=== PATIENT | male | born 1945 | race Two or more races ===

== ENCOUNTER → 2017-05-12 11:57 | Outpatient (CLI) | payer OTHER, SELFPAY ==
[2017-05-12 14:46] LABS: Hematocrit 29.5 % (40-54); Hemoglobin 9.8 g/dl (13.0-16.5); Mean Corp Hgb Conc 33.2 g/gl (32-36); Mean Corpuscular Hgb 26.6 pg (27.0-32.0); Mean Corpuscular Volume 79.9 fL (80-94); Mean Platelet Vol. 11.9 fl (6.2-12.0); Platelet Count 187 K/mm3 (150-450); RBC Distribution Width CV 12.9 % (11.6-14.6); RBC Distribution Width SD 36.7 fl (35.1-43.9); Red Blood Count 3.69 M/mm3 (4.6-6.2); White Blood Count 6.4 K/mm3 (4.4-11.0)
[2017-05-12 14:48] LABS: Scan Indicated on CBC? Y/N NO
[2017-05-12 15:14] LABS: Albumin, Serum 3.2 g/dL (3.2-5.0); BUN 22 mg/dL (7-18); BUN/Creat Ratio 6.8 RATIO (10-20); Calcium,Total 8.5 mg/dL (8.5-10.1); Chloride 104 mmol/L (98-107); Creatinine, Serum 3.25 mg/dL (0.70-1.30); EST Glomerular Filtration Rate 20 mL/min (>60); Est Glom Filt Rate - Afr Amer 24 mL/min (>60); Glucose 132 mg/dL (70-110); Phosphorus 3.7 mg/dL (2.5-4.9); Potassium 4.3 mmol/L (3.5-5.1); Sodium Level 141 mmol/L (136-145)
[2017-05-12 15:15] LABS: 24HR. UA Prot. Total Volume 2425 mL; Urine Protein (24 Hour) 157.8 mg/dL (<11.9)
[2017-05-12 15:18] LABS: Creat.Clear Total Volume 2425 mL; Creatinine Serum Creat 3.3 mg/dL (0.8-1.3)
[2017-05-12 15:24] LABS: Vitamin D,25 Hydroxy 19.4 ng/mL (19.95-100.01)
[2017-05-12 15:26] LABS: PTHIN 286.2 pg/mL (18.4-80.1)
[2017-05-13 21:18] LABS: 24 Hour Urine Protein 3826.6 mg/24HR (<150 MG/24HR)
[2017-05-13 21:23] LABS: Creatinine Clearance 26 ml/min (100-200); Creatinine Urine 49.7 mg/dL (NO RANGE EST.); EST Glomerular Filtration Rate 20 mL/min (>60); Est Glom Filt Rate - Afr Amer 24 mL/min (>60)
== END ==
PROVIDERS: Family Provider Family Medicine Geriatric Medicine; PCP Family Medicine Geriatric Medicine; Visit Provider Internal Medicine Nephrology
DX: N18.4 Chronic kidney disease, stage 4 (severe) (principal); D63.8 Anemia in other chronic diseases classified elsewhere; N25.81 Secondary hyperparathyroidism of renal origin; E55.9 Vitamin D deficiency, unspecified
CPT/HCPCS: 36415; 80069; 82306; 82575; 83970; 84156; 85027

== ENCOUNTER → 2017-06-15 11:34 | Outpatient (CLI) | payer OTHER, SELFPAY ==
[2017-06-15 13:16] LABS: Absolute Lymphocyte Count 1.41 X10^3/ul (0.83-4.51); Absolute Neutrophil Count 4.5 X10^3/uL (2.0-7.7); Basophil# 0.03 X10^3/uL; Basophil% 0.4 % (0-1); Eosinophil# 0.49 X10^3/uL; Eosinophils% 7.1 % (0-5); Hematocrit 29.7 % (40-54); Hemoglobin 9.6 g/dl (13.0-16.5); Lymphocyte # 1.41 X10^3/ul (4.0); Lymphocyte % 20.5 % (19-41); Mean Corp Hgb Conc 32.3 g/gl (32-36); Mean Corpuscular Hgb 25.9 pg (27.0-32.0); Mean Corpuscular Volume 80.3 fL (80-94); Mean Platelet Vol. 10.8 fl (6.2-12.0); Monocyte# 0.42 X10^3/uL; Monocyte% 6.1 % (0-10); Neutrophil # 4.53 X10^3/uL (2.7-7.7); Platelet Count 192 K/mm3 (150-450); RBC Distribution Width CV 14.4 % (11.6-14.6); RBC Distribution Width SD 41.9 fl (35.1-43.9); White Blood Count 6.9 K/mm3 (4.4-11.0)
[2017-06-15 13:17] LABS: POSITIVE COUNT NO; POSITIVE DIFFERENTIAL NO; POSITIVE MORPHOLOGY NO
[2017-06-15 13:18] LABS: Neutrophil % 65.9 % (47-70)
[2017-06-15 13:47] LABS: ALB/GLOB Ratio 0.9 RATIO (0.9-2.4); AST(SGOT) 13 U/L (15-37); Alanine Aminotransfer ALT/SGPT 20 U/L (16-61); Albumin, Serum 3.4 g/dL (3.2-5.0); Alkaline Phosphatase 68 U/L (45-117); Anion Gap 6 (5-15); BUN 33 mg/dL (7-18); BUN/Creat Ratio 9.9 RATIO (10-20); Calcium,Total 8.3 mg/dL (8.5-10.1); Chloride 111 mmol/L (98-107); Creatinine, Serum 3.32 mg/dL (0.70-1.30); EST Glomerular Filtration Rate 20 mL/min (>60); Est Glom Filt Rate - Afr Amer 24 mL/min (>60); Globulin 3.9 g/dL (2.2-4.2); Glucose 175 mg/dL (74-106); Potassium 6.7 mmol/L (3.5-5.1); Protein, Total 7.3 g/dL (6.4-8.2); Sodium Level 138 mmol/L (136-145); Thyroid Stim Hormone (TSH) 2.41 uIU/mL (0.358-3.74)
== END ==
PROVIDERS: Family Provider Family Medicine Geriatric Medicine; PCP Family Medicine Geriatric Medicine; Visit Provider Family Medicine Geriatric Medicine
DX: E11.9 Type 2 diabetes mellitus without complications (principal); I10 Essential (primary) hypertension
CPT/HCPCS: 36415; 80053; 84443; 85025

== ENCOUNTER → 2017-06-16 15:27 | Outpatient (CLI) | payer OTHER, SELFPAY ==
[2017-06-16 16:13] LABS: Anion Gap 9 (5-15); BUN 34 mg/dL (7-18); Calcium,Total 8.2 mg/dL (8.5-10.1); Chloride 108 mmol/L (98-107); Creatinine, Serum 3.08 mg/dL (0.70-1.30); EST Glomerular Filtration Rate 21 mL/min (>60); Est Glom Filt Rate - Afr Amer 26 mL/min (>60); Glucose 150 mg/dL (74-106); Potassium 5.4 mmol/L (3.5-5.1); Sodium Level 137 mmol/L (136-145)
== END ==
PROVIDERS: Family Provider Family Medicine Geriatric Medicine; PCP Family Medicine Geriatric Medicine; Visit Provider Family Medicine Geriatric Medicine
DX: E87.6 Hypokalemia (principal)
CPT/HCPCS: 36415; 80048

== ENCOUNTER → 2017-06-18 11:14 | Outpatient (CLI) | payer OTHER, SELFPAY ==
[2017-06-18 13:25] LABS: Anion Gap 9 (5-15); BUN 40 mg/dL (7-18); BUN/Creat Ratio 12.7 RATIO (10-20); Calcium,Total 8.5 mg/dL (8.5-10.1); Chloride 111 mmol/L (98-107); Creatinine, Serum 3.14 mg/dL (0.70-1.30); EST Glomerular Filtration Rate 21 mL/min (>60); Est Glom Filt Rate - Afr Amer 25 mL/min (>60); Glucose 137 mg/dL (74-106); Sodium Level 141 mmol/L (136-145)
== END ==
PROVIDERS: Family Provider Family Medicine Geriatric Medicine; PCP Family Medicine Geriatric Medicine; Visit Provider Family Medicine Geriatric Medicine
DX: E87.6 Hypokalemia (principal)
CPT/HCPCS: 36415; 80048

== ENCOUNTER → 2017-07-13 10:19 | Outpatient (CLI) | payer OTHER, SELFPAY ==
[2017-07-13 15:02] LABS: Hematocrit 29.1 % (40-54); Hemoglobin 9.6 g/dl (13.0-16.5); Mean Corpuscular Hgb 26.4 pg (27.0-32.0); Mean Corpuscular Volume 79.9 fL (80-94); Mean Platelet Vol. 12.1 fl (6.2-12.0); Platelet Count 195 K/mm3 (150-450); RBC Distribution Width CV 14.2 % (11.6-14.6); RBC Distribution Width SD 39.5 fl (35.1-43.9); Red Blood Count 3.64 M/mm3 (4.6-6.2)
[2017-07-13 15:08] LABS: Scan Indicated on CBC? Y/N NO
[2017-07-13 15:09] LABS: Albumin, Serum 3.4 g/dL (3.2-5.0); BUN 33 mg/dL (7-18); BUN/Creat Ratio 10.4 RATIO (10-20); Calcium,Total 8.8 mg/dL (8.5-10.1); Chloride 105 mmol/L (98-107); Creatinine, Serum 3.18 mg/dL (0.70-1.30); EST Glomerular Filtration Rate 21 mL/min (>60); Est Glom Filt Rate - Afr Amer 25 mL/min (>60); Glucose 126 mg/dL (74-106); Phosphorus 4.3 mg/dL (2.5-4.9); Potassium 5.1 mmol/L (3.5-5.1); Sodium Level 139 mmol/L (136-145)
[2017-07-14 08:25] LABS: PTHIN 133.2 pg/mL (18.4-80.1)
[2017-07-14 08:30] LABS: Vitamin D,25 Hydroxy 45.2 ng/mL (29.95-100.01)
== END ==
PROVIDERS: Family Provider Family Medicine Geriatric Medicine; PCP Family Medicine Geriatric Medicine; Visit Provider Internal Medicine Nephrology
DX: N18.4 Chronic kidney disease, stage 4 (severe) (principal); N25.81 Secondary hyperparathyroidism of renal origin; D63.8 Anemia in other chronic diseases classified elsewhere; E55.9 Vitamin D deficiency, unspecified
CPT/HCPCS: 36415; 80069; 82306; 83970; 85027

== ENCOUNTER 2017-07-27 08:02 | Day surgery (SDC) | payer OTHER, SELFPAY ==
[2017-07-27] VITALS (7 sets, daily range): BP systolic 98–147; BP diastolic 48–80; PULSE 64–77; RESP 16–19; TEMP 36.4–36.6; O2SAT 98–100; BMI 32.0
--- NOTE | 2017-07-27 | IMM_PTH ---
PATIENT: POLINA GANDARA LOC: EN U#:[id number] AGE/SX: 72/M ROOM: RE07/27/[address]: Dr. Carlos Manuel Sorto MD : 1945 BED: DIS: 07/27/2017 SPEC #: [id number] RECD: 07/28/17 13:03 STATUS: KATHY SOFIA #: [id number] HOWARD: 07/27/17 00:[address]: Carlos Manuel Sorto DEPT: IMMUNOHISTOCHEMISTRY RECD BY: Milena Simmons ENTERED: 07/28/17 13:04 SP TYPE: IMMUNO OTHR DR: Dr. Sy Sharma MD Tissues: A - Stomach, NOS Procedures: H Pylori (initial) PHYSICIAN & INSTITUTION [place] [id number] SPECIMEN INFORMATION: Tissue Source: A ? Antral biopsy Clinical Info: Anemia Specimen Number: [id number] CPT code: 02027 METHODOLOGY: Deparaffinized sections of prefer/formalin-fixed tissue or PAP/DQ stained slides are incubated with monoclonal/polyclonal antibodies/oligonucleotide probes. Localization is made via biotin free immunoperoxidase method. Appropriate controls are performed and reacted as expected. Results on target cell population are indicated in the following table: RESULTS: ANTIBODY / CLONE RESULT Block A H Pylori (polyclonal) negative These tests were developed and their performance characteristics determined by [facility]. They may not have been cleared or approved by the U.[place]. Food and Drug Administration. The FDA has determined that such clearance or approval is not necessary. INTERPRETATION: A. Antral biopsy: Negative for Helicobacter pylori organisms. AM:taniya 07/29/17
--- NOTE | 2017-07-27 | EGD_PTH ---
PATIENT: POLINA GANDARA LOC: EN U#:[id number] AGE/SX: 72/M ROOM: RE07/27/[address]: Dr. Carlos Manuel Sorto MD : 1945 BED: DIS: 07/27/2017 SPEC #: [id number] RECD: 07/27/17 11:30 STATUS: KATHY SOFIA #: [id number] HOWARD: 07/27/17 00:[address]: Carlos Manuel Sorto DEPT: SURGICAL PATHOLOGY RECD BY: Darek Knight ENTERED: 07/27/17 11:59 SP TYPE: EGD [facility]OPSY [facility] DR: Dr. Sy Sharma MD Tissues: A - Gastric mucous membrane B - Esophageal mucous membrane C - COLON BIOPSY D - Transverse colon E - SPLENIC FLEXURE F - Rectum, NOS Procedures: Surgery Specimen Level IV HEADER OPERATION: EGD and colonoscopy PRE-OP DIAGNOSIS: Anemia TISSUE SUBMITTED: A ? Antral biopsy, B ? Distal esophagus biopsy, C ? Hepatic flexure polyp, D ? Mid transverse polyp, E ? Splenic flexure polyp, F ? Rectal polyp MICROSCOPIC DIAGNOSIS A. Gastric antrum, biopsy: Mild chronic gastritis. B. Distal esophagus, biopsy: Fragments of benign squamous mucosa with focal changes of reflux. C. Colonic polyp at hepatic flexure, biopsy: Fragments of tubular adenoma. D. Mid transverse colon polyp, biopsy: Tubular adenoma. E. Colonic polyp at splenic flexure, biopsy: Fragments of tubular adenoma. F. Rectal polyp, biopsy: Hyperplastic polyp. Fecal debris. AM:taniya 07/28/17 COMMENT A. The results of immunohistochemistry for Helicobacter pylori will be reported separately ([id number]). B. Glandular epithelium is not represented in the biopsy. Clinical correlation is suggested. MICROSCOPIC DESCRIPTION Slides are reviewed. A. Sections show small collections and groups of plasma cells in the mucosa. Active inflammation is not present. These findings are consistent with mild chronic gastritis. GROSS DESCRIPTION A - Received in fixative is one container labeled with the patient's name and designated antral biopsy. The specimen consists of one irregular fragment of light acosta soft tissue that measures 0.4 x 0.4 x 0.1 cm. The specimen is totally submitted in one cassette. B - Received in fixative is one container labeled with the patient's name and designated distal esophagus. The specimen consists of one irregular fragment of light acosta soft tissue that measures 0.5 x 0.3 x 0.1 cm. The specimen is totally submitted in one cassette. C - Received in fixative is one container labeled with the patient's name and designated hepatic flexure polyp. The specimen consists of two irregular fragments of light acosta soft tissue that in aggregate measure 0.7 x 0.3 x 0.2 cm. The specimen is totally submitted in one cassette. D - Received in fixative is one container labeled with the patient's name and designated mid transverse polyp. The specimen consists of one irregular fragment of light acosta soft tissue that measures 0.3 x 0.3 x 0.2 cm. The specimen is totally submitted in one cassette. E - Received in fixative is one container labeled with the patient's name and designated splenic flexure polyp. The specimen consists of multiple irregular fragments of light acosta soft tissue that in aggregate measure 1.5 x 0.5 x 0.1 cm. The specimen is totally submitted in one cassette. F - Received in fixative is one container labeled with the patient's name and designated rectal polyp. The specimen consists of multiple irregular fragments of light acosta soft tissue that in aggregate measure 1 x 0.3 x 0.1 cm. The specimen is totally submitted in one cassette. / SJ:rg 07/27/17 TC:5 CPT: 13565 x6
[2017-07-27 08:41] LABS: Bedside Glucose 122 mg/dL (70-110)
--- NOTE | 2017-07-27 10:39 | PCM.OPRPT ---
Problem List (1) Anemia of chronic renal failure, stage 4 (severe) Status: Chronic (2) Screening for intestinal cancer Status: Acute Report of Operation Date of Procedure: 07/27/17 Pre-Operative Diagnosis: Chronic anemia, screening for intestinal cancer Post-Operative Diagnosis: Small hiatal hernia, minimal distal esophagitis, minimal antral erythema. Elongated tortuous colon, small sessile polyps of the hepatic flexure and mid transverse colon and splenic flexure and rectum. Minimal sigmoid diverticulosis Surgery/Procedure Performed:: Esophagogastroduodenoscopy with cold forceps biopsy. Colonoscopy with hot snare polypectomy Description of Surgical Findings:: Amount and informed consent was obtained. 72-year-old gentleman was taken to the endoscopy suite. He is being evaluated for renal transplantation. His oropharynx anesthetized with Cetacaine. He was placed in left lateral decubitus position. He underwent monitored anesthesia care. Flexible gastroscope was inserted in the esophageal inlet. The proximal mid distal esophagus not remarkable. There is a very minimal amount of irritation within a small hiatal hernia in the distal esophagus at 40 cm e.g. junction. Scope was advanced in the stomach. A very minimal amount of antral erythema noted. Scope was advanced through the pylorus. The first and second portion of the duodenum were inspected this was not remarkable. The scope was gone back to the stomach retroflexed the EG junction and cardia were inspected. The small hiatal hernia noted. Scope was placed back in antegrade viewing position. Greater and lesser curvatures were inspected and the scope was advanced back down to the antrum. Cold forceps antral biopsy obtained. Excess fluid and air was aspirated free. The scope was withdrawn to the distal esophagus with a similar biopsy was obtained. Excess fluid nurse aspirated free the procedure completed he tolerated it well. He was kept in left loud skin decubitus position. Digital rectal exam demonstrated lax anal tone 2+ smooth prostate no mass lesions. Flexible colonoscope was in the rectum advanced with tortuous sigmoid colon with some effort was advanced to the transverse colon and with transabdominal pressure is advanced to the cecum. The cecum ileocecal valve area was achieved. Bowel prep was fair to good there was liquid stool located throughout the colon which required aspiration in in sections could not be completely aspirated because of his viscosity and plugging of the scope. I felt that I had adequate though not superlative view of the colon. The scope was carefully withdrawn from the ascending colon transverse colon descending colon and sigmoid. There were small sessile polyps of the hepatic flexure and mid transverse colon and splenic flexure and rectum. Photographs were obtained. All of these were less than a centimeter. They were all resected using hot snare cautery. They were retrieved. Hemostasis was nicely intact. There is minimal sigmoid diverticulosis. The scope was retroflexed within the rectum some mild hemorrhoidal changes noted no active bleeding. Excess fluid and air was aspirated free the procedure completed with the patient tolerating it well. Impression Very minimal distal esophagitis with small hiatal hernia. Minimal antral erythema. 4 small sessile polyps of the hepatic flexure and mid transverse colon and splenic flexure and rectum. All clinically benign. Diverticulosis. Internal hemorrhoids. The patient will be notified of pathology results as they become available. Because of the number of polyps and lack of absolutely perfect bowel prep I will recommend follow-up colonoscopy at 1 year. The patient has never had a previous colonoscopy. Cc: Dr. Sharma The upper scope exam was started at 1007 and completed at 1011. The colonoscopy was initiated at 1014. The cecum was reached at 1020. The procedure was completed at 1036. Carlos Manuel Sorto M.D., F.A.C.S. Type of Anesthesia:: MAC Anesthesiologist: Mo Arizmendi
== END 2017-07-27 11:25 | disposition home or self-care (01) ==
LOC: EN 08:02 → AC 08:05
PROVIDERS: Family Provider Family Medicine Geriatric Medicine; PCP Family Medicine Geriatric Medicine; Visit Provider Surgery
PROC: 0DJD8ZZ Inspection of Lower Intestinal Tract, Via Natural or Artificial Opening Endoscopic (ICD-10-PCS; CPT 45378; principal; 2017-07-27 09:10)
DX: Z12.10 Encounter for screening for malignant neoplasm of intestinal tract, unspecified (principal); K29.50 Unspecified chronic gastritis without bleeding; K21.0 Gastro-esophageal reflux disease with esophagitis; K44.9 Diaphragmatic hernia without obstruction or gangrene; D12.3 Benign neoplasm of transverse colon; K57.30 Diverticulosis of large intestine without perforation or abscess without bleeding; K62.1 Rectal polyp; K56.2 Volvulus; K64.8 Other hemorrhoids; I12.9 Hypertensive chronic kidney disease with stage 1 through stage 4 chronic kidney disease, or unspecified chronic kidney disease; E11.22 Type 2 diabetes mellitus with diabetic chronic kidney disease; N18.4 Chronic kidney disease, stage 4 (severe); D63.1 Anemia in chronic kidney disease; N17.9 Acute kidney failure, unspecified; Z79.84 Long term (current) use of oral hypoglycemic drugs; Z77.22 Contact with and (suspected) exposure to environmental tobacco smoke (acute) (chronic); E78.00 Pure hypercholesterolemia, unspecified; E78.5 Hyperlipidemia, unspecified; Z79.899 Other long term (current) drug therapy
CPT/HCPCS: 43239; 45385; 82962; 88305; 88342; J7120

== ENCOUNTER → 2017-09-23 12:36 | Outpatient (CLI) | payer OTHER, SELFPAY ==
[2017-09-23 13:43] LABS: Absolute Lymphocyte Count 1.62 X10^3/ul (0.83-4.51); Absolute Neutrophil Count 4.7 X10^3/uL (2.0-7.7); Basophil# 0.02 X10^3/uL; Basophil% 0.3 % (0-1); Eosinophil# 0.48 X10^3/uL; Eosinophils% 6.7 % (0-5); Hematocrit 26.9 % (40-54); Hemoglobin 8.9 g/dl (13.0-16.5); Lymphocyte # 1.62 X10^3/ul (4.0); Lymphocyte % 22.6 % (19-41); Mean Corp Hgb Conc 33.1 g/gl (32-36); Mean Corpuscular Hgb 26.8 pg (27.0-32.0); Mean Platelet Vol. 10.4 fl (6.2-12.0); Monocyte# 0.37 X10^3/uL; Monocyte% 5.2 % (0-10); Neutrophil # 4.67 X10^3/uL (2.7-7.7); Neutrophil % 65.2 % (47-70); Platelet Count 187 K/mm3 (150-450); RBC Distribution Width CV 13.7 % (11.6-14.6); RBC Distribution Width SD 40.8 fl (35.1-43.9); Red Blood Count 3.32 M/mm3 (4.6-6.2); White Blood Count 7.2 K/mm3 (4.4-11.0)
[2017-09-23 13:50] LABS: ALB/GLOB Ratio 0.8 RATIO (0.9-2.4); AST(SGOT) 13 U/L (15-37); Alanine Aminotransfer ALT/SGPT 18 U/L (16-61); Albumin, Serum 3.2 g/dL (3.2-5.0); Alkaline Phosphatase 46 U/L (45-117); Anion Gap 7 (5-15); BUN 45 mg/dL (7-18); BUN/Creat Ratio 12.4 RATIO (10-20); Calcium,Total 8.3 mg/dL (8.5-10.1); Chloride 107 mmol/L (98-107); Creatinine, Serum 3.64 mg/dL (0.70-1.30); EST Glomerular Filtration Rate 18 mL/min (>60); Est Glom Filt Rate - Afr Amer 21 mL/min (>60); Ferritin 161 ng/mL (26-388); Globulin 4.1 g/dL (2.2-4.2); Glucose 154 mg/dL (74-106); Iron 79 ug/dL (65-175); Iron Binding Capacity,Total 215 ug/dL (250-450); PERCENT IRON SATURATION 36.7 % (15.0-55.0); Phosphorus 4.1 mg/dL (2.5-4.9); Potassium 5.3 mmol/L (3.5-5.1); Protein, Total 7.3 g/dL (6.4-8.2); Sodium Level 138 mmol/L (136-145)
[2017-09-23 13:56] LABS: Protein, Urine (Random) 256.6 mg/dL (<11.9); Protein:Creat Ratio 2780 mg/g CRE (0-200)
[2017-09-23 14:01] LABS: POSITIVE COUNT NO; POSITIVE DIFFERENTIAL NO; POSITIVE MORPHOLOGY NO
[2017-09-24 08:23] LABS: PTHIN 97.1 pg/mL (18.4-80.1)
[2017-09-24 17:54] LABS: Erythropoietin 7.8 mIU/mL (2.6-18.5)
== END ==
PROVIDERS: Internal Medicine Hematology & Oncology; Family Provider Family Medicine Geriatric Medicine; PCP Family Medicine Geriatric Medicine; Visit Provider Internal Medicine Nephrology
DX: E11.22 Type 2 diabetes mellitus with diabetic chronic kidney disease (principal); N18.4 Chronic kidney disease, stage 4 (severe); D63.8 Anemia in other chronic diseases classified elsewhere; N25.81 Secondary hyperparathyroidism of renal origin
CPT/HCPCS: 80053; 82570; 82668; 82728; 83540; 83550; 83970; 84100; 84156; 85025

== ENCOUNTER → 2017-10-04 09:56 | Outpatient (CLI) | payer OTHER, SELFPAY ==
--- NOTE | 2017-10-04 10:24 | VDUE_ITS ---
Reason For Study: CKD stage 4 Right Arm Left Arm Right cephalic vein is compressible. Left cephalic vein is compressible. Right Cephalic Vein at the shoulder Left Cephalic Vein at the shoulder measures .319 x .318 cm. measures .283 x .279 cm. Right Cephalic Vein mid bicep measures .244 Left Cephalic Vein at mid bicep x .259 cm. measures .237 x .254 cm. Right Cephalic Vein above antecub Left Cephalic Vein above antecub measures .359 x .369 cm. measures .295 x .312 cm. Right Cephalic Vein below antecub Left Cephalic Vein below antecub measures .254 x .264 cm. measures .299 x .316 cm. Right Cephalic Vein in the forearm Left Cephalic Vein in the forearm measures .285 x .289 cm. measures .241 x .258 cm. Right Cephalic Vein at the wrist Left Cephalic Vein at the wrist measures .289 x .299 cm. measures .245 x .266 cm. Right basilic vein is compressible. Left basilic vein is compressible. Right Basilic Vein at the origin Basilic vein at origin measures .407 x .392 measures .443 x .473 cm. cm. Right Basilic Vein above antecub Basilic vein above antecub measures .439 measures .353 x .353 cm. x .412 cm. Right Basilic Vein below antecub Basilic vein below antecub measures .166 measures .085 x .085 cm. x .146 cm. Basilic V below this level is too small to Basilic V below this level is too small to assess. assess. Brachial artery 94.3 cm/s. Brachial artery 108 cm/s. Brachial artery .538 x .572 cm. Brachial artery .495 x .482 cm. Radial artery 130 cm/s. Radial artery 140 cm/s. Radial artery .280 x .295 cm. Radial artery .220 x .233 cm. < Interpretation Summary Patent and compressible cephalic and basilic veins bilaterally with dimensions as noted. Relatively small left radial artery. Ordering Physician: Mary Mix Performed By: Mariusz Sarmiento RVT ??? Reason For Study: CKD stage 4 < Interpretation Summary Patent and compressible cephalic and basilic veins bilaterally with dimensions as noted. Relatively small left radial artery. Ordering Physician: Mary Mix Performed By: Mariusz Sarmiento RVT
== END ==
PROVIDERS: Family Provider Family Medicine Geriatric Medicine; PCP Family Medicine Geriatric Medicine; Visit Provider Internal Medicine Nephrology
DX: Z01.818 Encounter for other preprocedural examination (principal); N18.4 Chronic kidney disease, stage 4 (severe)
CPT/HCPCS: 93970

== ENCOUNTER 2017-11-18 14:32 | Inpatient (IN) | payer OTHER, SELFPAY ==
[2017-11-18] VITALS (7 sets, daily range): BP systolic 153–186; BP diastolic 72–85; PULSE 65–77; RESP 16–18; TEMP 36.2–36.9; O2SAT 98–100; BMI 32.2; BMI 32.3
--- NOTE | 2017-11-18 15:10 | CT_ITS ---
STUDY: CT BRAIN WITHOUT CONTRAST REASON FOR EXAM: Male, 72 years old. Dizziness. Weakness. Fall. Not sure of direct head trauma. RADIATION DOSAGE (If Supplied By Facility): CTDIvol = ( 44.99 ) mGy, DLP = ( 796.11 ) mGycm TECHNIQUE: Transaxial CT imaging of the brain was performed without administration of intravenous contrast material. Individualized dose optimization techniques were used for this CT. COMPARISON: May 15, 2014. FINDINGS: Normal soft tissue structures. Normal calvarium. Normal size ventricles and extra-axial spaces for the patient's age. Normal white matter tracts of the cerebral hemispheres. Normal basal ganglia and thalami. Normal brainstem. Normal cerebellum. There is no intracranial hemorrhage. There are no findings of an acute ischemic infarction. There is opacification of the right ethmoid air cells and sphenoid sinus. CT/Brain/Head without Contrast IMPRESSION: No acute intracranial or calvarial abnormality. There is no interval change when compared to May 16, 2014. Electronically Signed: Froilan Valdes DO at 16:09 EDT Tel [phone], Service support ,
--- NOTE | 2017-11-18 15:10 | RAD_ITS ---
STUDY: X-RAY CHEST REASON FOR EXAM: Male, 72 years old. Dizziness. Weakness Fall. Diaphoresis. Neck pain. TECHNIQUE: Single AP portable view of the chest. COMPARISON: February 28, 2017 FINDINGS: Telemetry wires overlie the chest. The lungs are clear and expanded. There is stable elevation of the right hemidiaphragm. There is no demonstrated pleural abnormality. Normal size heart. Normal mediastinum and yoel. Normal visualized pulmonary arteries. Normal visualized aortic arch and descending thoracic aorta. There are diffuse degenerative changes of the visualized thoracic spine. Normal visualized ribs, clavicles, and shoulders. There is no demonstrated abnormality of the visualized soft tissue structures of the upper abdomen. RAD/Chest 1 View (Portable) IMPRESSION: No acute cardiopulmonary disease or major interval change. Electronically Signed: Froilan Valdes DO at 16:12 EDT Tel [phone], Service support ,
--- NOTE | 2017-11-18 15:12 | RAD_ITS ---
STUDY: X-RAY - CERVICAL SPINE REASON FOR EXAM: Male, 72 years old. Dizziness. Weakness. Fall. Neck pain. TECHNIQUE: 3 view(s) of the cervical spine were obtained. COMPARISON: None FINDINGS: There are degenerative changes of the anterior atlantoaxial articulation. Normal odontoid process. There is straightening of the normal cervical lordosis. There is multi-level endplate spondylosis. There is multi-level degenerative disc disease with multilevel disc space narrowing. This is most marked at C5-6 and C6-7. There is no evidence of acute fracture or loss of vertebral axial height. There is maintenance of normal alignment. The soft tissue structures are unremarkable. RAD/Cerv Spine 2 or 3 Views IMPRESSION: Straightening of the cervical lordosis with degenerative changes of the cervical spine. Electronically Signed: Froilan Valdes DO at 16:11 EDT Tel [phone], Service support ,
--- NOTE | 2017-11-18 15:31 | ED.VISSUMM ---
- ER Visit Summary Date of Service: 11/18/17 Chief Complaint: [Weakness] History of Present Illness: The patient is a 72 M [with complaint of mainly fatigue today and no energy. Patient recounts an episode last evening where he woke up at 3 AM feeling like he was having a lot of abdominal cramping and needed to have a bowel movement therefore he went and sat on the toilet. While on the toilet he states he really could not go but began feeling lightheaded, sweaty, and generally not feeling well. Patient states that he try to walk back to his bedroom where he fell into the side of the bed as he was trying to get into bed. Patient did not lose consciousness. Patient thinks he may have injured his neck when he fell into the side of the bed. Is not sure if he hit his head. Patient is not on any blood thinners. Today he is not feeling dizzy or lightheaded however when he walks he feels a little bit off balance. Patient denies any numbness or tingling or weakness of the extremities. Patient denies chest pain or shortness of breath. Patient has not had any recent illness. He has not had any vomiting or diarrhea.] Physical Examination: [HEENT-PERRLA, EOMI. Cranial nerves II through XII grossly intact. TMs clear. Mucous membranes moist. No adenopathy. Head is atraumatic. Patient does have some diffuse C-spine tenderness on palpation. Patient rates his pain a 5 or 6 out of 10. Cardiovascular-regular rate and rhythm without murmur or ectopy Lungs-clear to auscultation, chest wall stable without crepitus or subcu emphysema Abdomen-normoactive bowel sounds, soft, nontender, no rebound or rigidity, no peritoneal signs. Neuro mcbc-oeuayn-pzhi and heel garcia testing within normal limits, negative Romberg, negative pronator drift. Back exam-patient has no tenderness over the thoracic or lumbar spine. Patient has negative straight leg raises. Extremities-intact ?4, normal range of motion, normal pulses, atraumatic] Test Results: [EKG obtained on arrival showed a sinus rhythm with a ventricular rate of 66 bpm and a right bundle branch block.] Emergency Department Course and Treatment: [] Treatment Plan: [] Disposition: [] Impression: [] This note was generated with [employer] software. It may contain incorrect words, spelling, and punctuation that were not noted in review of the chart prior to signing ED Disposition - Plan for ED Patient: Chief Complaint: Dizziness Referrals: Sy Sharma Chi, MD [Primary Care Provider] -
[2017-11-18] MEDS: 0.9% Normal Saline 1,000 ML 150 ML IV ×2 (15:33→20:22)
--- NOTE | 2017-11-18 15:34 | ED.DCSUM_ITS ---
- ER Visit Summary Date of Service: 11/18/17 Chief Complaint: [Weakness] History of Present Illness: The patient is a 72 M [with complaint of mainly fatigue today and no energy. Patient recounts an episode last evening where he woke up at 3 AM feeling like he was having a lot of abdominal cramping and needed to have a bowel movement therefore he went and sat on the toilet. While on the toilet he states he really could not go but began feeling lightheaded, sweaty, and generally not feeling well. Patient states that he try to walk back to his bedroom where he fell into the side of the bed as he was trying to get into bed. Patient did not lose consciousness. Patient thinks he may have injured his neck when he fell into the side of the bed. Is not sure if he hit his head. Patient is not on any blood thinners. Today he is not feeling dizzy or lightheaded however when he walks he feels a little bit off balance. Patient denies any numbness or tingling or weakness of the extremities. Patient denies chest pain or shortness of breath. Patient has not had any recent illness. He has not had any vomiting or diarrhea.] Physical Examination: [HEENT-PERRLA, EOMI. Cranial nerves II through XII grossly intact. TMs clear. Mucous membranes moist. No adenopathy. Head is atraumatic. Patient does have some diffuse C-spine tenderness on palpation. Patient rates his pain a 5 or 6 out of 10. Cardiovascular-regular rate and rhythm without murmur or ectopy Lungs-clear to auscultation, chest wall stable without crepitus or subcu emphysema Abdomen-normoactive bowel sounds, soft, nontender, no rebound or rigidity, no peritoneal signs. Neuro lott-puujur-hbdm and heel garcia testing within normal limits, negative Romberg, negative pronator drift. Back exam-patient has no tenderness over the thoracic or lumbar spine. Patient has negative straight leg raises. Extremities-intact ?4, normal range of motion, normal pulses, atraumatic] Test Results: [EKG obtained on arrival showed a sinus rhythm with a ventricular rate of 66 bpm and a right bundle branch block.] Emergency Department Course and Treatment: [] Treatment Plan: [] Disposition: [] Impression: [] This note was generated with [employer] software. It may contain incorrect words, spelling, and punctuation that were not noted in review of the chart prior to signing ED Disposition - Plan for ED Patient: Chief Complaint: Dizziness Referrals: Sy Sharma Chi, MD [Primary Care Provider] -
[2017-11-18 15:43] LABS: Absolute Neutrophil Count 5.5 X10^3/uL (2.0-7.7); Basophil# 0.02 X10^3/uL; Basophil% 0.3 % (0-1); Eosinophil# 0.34 X10^3/uL; Eosinophils% 4.3 % (0-5); Hematocrit 32.3 % (40-54); Hemoglobin 10.3 g/dl (13.0-16.5); Lymphocyte % 18.9 % (19-41); Mean Corp Hgb Conc 31.9 g/gl (32-36); Mean Corpuscular Hgb 26.5 pg (27.0-32.0); Mean Corpuscular Volume 83.2 fL (80-94); Mean Platelet Vol. 10.5 fl (6.2-12.0); Monocyte# 0.53 X10^3/uL; Monocyte% 6.7 % (0-10); Neutrophil # 5.54 X10^3/uL (2.7-7.7); Neutrophil % 69.7 % (47-70); Platelet Count 171 K/mm3 (150-450); RBC Distribution Width SD 42.3 fl (35.1-43.9); Red Blood Count 3.88 M/mm3 (4.6-6.2); White Blood Count 7.9 K/mm3 (4.4-11.0)
[2017-11-18 15:44] LABS: POSITIVE COUNT NO; POSITIVE DIFFERENTIAL NO; POSITIVE MORPHOLOGY NO
[2017-11-18 16:02] LABS: Anion Gap 8 (5-15); BUN 55 mg/dL (7-18); BUN/Creat Ratio 13.1 RATIO (10-20); Calcium,Total 8.2 mg/dL (8.5-10.1); Chloride 115 mmol/L (98-107); EST Glomerular Filtration Rate 15 mL/min (>60); Est Glom Filt Rate - Afr Amer 18 mL/min (>60); Estimated Creatinine Clearance 15.83 ml/min; Glucose 183 mg/dL (74-106); Potassium 5.9 mmol/L (3.5-5.1); Sodium Level 144 mmol/L (136-145)
--- NOTE | 2017-11-18 17:09 | ED.DCSUM_ITS ---
- ER Visit Summary Date of Service: 11/18/17 Chief Complaint: [Addendum to initial dictation] History of Present Illness: The patient is a 72 M [] Physical Examination: [] Test Results: [CBC with differential showed white count 7.9, hemoglobin 10, hematocrit 32, platelets 171. Chemistry showed a sodium 144, potassium 5.9, chloride 115, CO2 21, glucose 183. BUN was 55 and current was 4.20. Troponin was less than 0.015. Chest x-ray showed nothing acute. CT of the brain showed nothing acute. C-spine x-rays obtained show degenerative changes but no fractures.] Emergency Department Course and Treatment: [Patient's BUN and creatinine have both increased in the last 2 months and patient is hyperkalemic today.] Treatment Plan: [Admit for further workup and evaluation of his renal failure and treatment of his hyperkalemia] Disposition: [Admit] Impression: [Renal failure Hyperkalemia Vasovagal episode Fall with cervical strain] This note was generated with [employer] dictation software. It may contain incorrect words, spelling, and punctuation that were not noted in review of the chart prior to signing ED Disposition - Plan for ED Patient: Chief Complaint: Dizziness Referrals: Sy Sharma Chi, MD [Primary Care Provider] -
[2017-11-18] MEDS: Sodium Polystyrene Sulfonate 15 GM/60 ML UDC 30 GM PO (17:18)
--- NOTE | 2017-11-18 18:22 | PCM.HP.STD ---
Problem List (1) DEVIN (acute kidney injury) Status: Acute (2) Hyperkalemia Status: Acute (3) Near syncope Status: Acute History of Present Illness Date of Admission: 11/18/17 Chief Complaint: near syncope The patient is a 72 year old M who was in his normal state of health up until early this morning where patient had cramps. I went to the restroom. I went back to his room and had a near syncopal and where he fell and felt dizzy. Patient went back to the bathroom again did have a bowel movement with cramps but then cramps resolved thereafter. Patient went back again and then another near syncopal episode and did his chin. Patient was brought to the emergency room in and found to have a creatinine of 4.2, with a baseline of 3.64. Potassium is also elevated at 5.9. Patient did receive IV fluids as well as Kayexalate. Orthostatic vital signs in the emergency room were negative. 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 DM2 (diabetes mellitus, type 2) (Chronic) E11.9 Hypertensive urgency (Acute) I16.0 ARF (acute renal failure) (Acute) HTN (hypertension) (Chronic) I10 Pre-syncope (Acute) Anemia D64.9 Hyperlipidemia E78.5 Allergies No Known Allergies Allergy (Verified 11/18/17 14:36) Home Medications: Ambulatory Orders Medication Instructions Recorded Amlodipine [Norvasc] 10 mg PO DAILY 06/23/17 Atorvastatin Calcium [Lipitor] 40 mg PO QHS 06/23/17 Calcitriol 5 mcg PO DAILY 06/23/17 Dulaglutide [Trulicity] 1.5 mg SQ REYNA 06/23/17 Ferrous Sulfate [Iron] 65 mg PO DAILY 06/23/17 Linagliptin [Tradjenta] 5 mg PO DAILY 06/23/17 Losartan Potassium 100 mg PO DAILY 06/23/17 Carvedilol [Coreg (Beta Samantha)] 12.5 mg PO BID 07/21/17 Surgical History: Surgical History (Last Reviewed 11/18/17 @ 18:24 by Santino De La Torre DO) S/P colonoscopy Z98.890 [place] teeth removed K08.409 Surgical History: no surgical history Lives: Spouse/ Significant Other Smoking Status: Former smoker Tobacco Use: Non-smoker Alcohol: None Drugs: None - *Family History Maternal Family History: Family History (Last Reviewed 11/18/17 @ 18:24 by Santino De La Torre DO) Father Pneumonia Mother CVA (cerebral vascular accident) History Items: Diabetes, Hypertension, Renal Disease, Stroke Paternal Family History: Family History (Last Reviewed 11/18/17 @ 18:24 by Santino De La Torre DO) Father Pneumonia Mother CVA (cerebral vascular accident) History Items: Heart Disease Review of Systems Constitutional: Reports: Weakness. Denies: Chills, Fever, Weight Change Eyes: Denies: Blurred vision, Double vision HEENT: Denies: Head Aches, Sinus Congestion, Sinus Drainage Cardiovascular: Denies: Chest Pain, Palpitations Respiratory: Denies: Cough, Shortness of breath at rest, Sputum production Gastrointestinal: Reports: Abdominal Pain, Nausea. Denies: Diarrhea, Vomiting Genitourinary: Reports: - - Decreased urinary output. Denies: Dysuria Musculoskeletal: Denies: Joint Pain, Joint Tenderness Skin: Denies: Rash, Wounds Neurological: Reports: Balance problems. Denies: Blurred vision, Double vision, Change in Speech, Confusion, Focal weakness, Incoordination Psychiatric: Denies: Anxiety, Depression Endocrine: Denies: Change in Body Habitus, Heat/ Cold Intolerance Hematologic/ Lymphatic: Denies: Easy Bruising, Easy Bleeding, Hx of blood clot Comment: All review of systems are negative except as mentioned in the history of present illness and the other review of systems. VTE Information - Inpt Only VTE Present on Admission: No VTE Mechan Device Prophylaxis: None VTE Pharm Prophylaxis ordered?: Yes Patient Problems: Active and Suspected Problems (Last Reviewed 11/03/17 @ 13:36 by Dia Stuart) DEVIN (acute kidney injury) (Acute) Hyperkalemia (Acute) Near syncope (Acute) - Physical Exam General: Alert, Cooperative, No apparent distress HEENT: Atraumatic, PERRLA, EOMI, Normocephalic Oral: Moist Mucosa, No Gingival or Mucosal Lesions/ Ulcerations Neck: No Nodes, Thyroid Normal Size and Texture Lungs: Clear to auscultation, Normal air movement, No rhonchi, No wheeze Cardiovascular: Regular rate, Regular Rhythm, Normal S1, Normal S2, No murmurs Abdomen: Bowel Sounds Present, Soft, Non Tender, Non-Distended, No Hepato-splenomegaly Extremities: No edema, No Calf Tenderness Skin: No rashes, No breakdown Musculoskeletal: No Tenderness to Palpation of Joints or Extremities, No Muscle Wasting Neurological: Cranial nerves II-XII grossly intact, Neuro grossly intact, Motor Exam 5/5 strength throughout, Muscle tone normal Psych/Mental Status: Normal Affect, Appropriate Vital Signs Temp Pulse Resp BP Pulse Ox 36.2 C L 77 17 186/72 H 99 11/18/17 14:33 11/18/17 17:20 11/18/17 17:20 11/18/17 17:20 11/18/17 17:20 Oxygen Delivery Method Room Air Weight: 96.162 kg Body Mass Index (BMI) 32.2 Laboratory Tests Past 24 Hrs 11/18/17 11/18/17 15:35 15:35 WBC 7.9 RBC 3.88 L Hgb 10.3 L Hct 32.3 L MCV 83.2 MCH 26.5 L MCHC 31.9 L RDW 14.0 RDW Differential 42.3 Plt Count 171 MPV 10.5 Immature Gran % (Auto) 0.100 Neut % (Auto) 69.7 Lymph % (Auto) 18.9 L [place] % (Auto) 6.7 Eos % (Auto) 4.3 Baso % (Auto) 0.3 Absolute Neuts (auto) 5.5 Absolute Lymphs (auto) 1.50 Total Counted Not Reportable Sodium 144 Potassium 5.9 H Chloride 115 H Carbon Dioxide 21.0 Anion Gap 8 BUN 55 H Creatinine 4.20 H Estim Creat Clear Calc 15.83 Est GFR (MDRD) Af Amer 18 L Est GFR (MDRD) Non-Af 15 L BUN/Creatinine Ratio 13.1 Glucose 183 H Calcium 8.2 L Troponin I < 0.015 EKG showed normal sinus rhythm right bundle branch block. No acute changes. Clinical Impression(s) from Imaging Studies Brain CT 11/18/17 15:10 IMPRESSION: No acute intracranial or calvarial abnormality. There is no interval change when compared to May 16, 2014. Electronically Signed: Froilan SeligmanDO shana at 16:09 EDT Tel [phone], Service support , Chest X-Ray 11/18/17 15:10 IMPRESSION: No acute cardiopulmonary disease or major interval change. Electronically Signed: Froilan Valdes DO at 16:12 EDT Tel [phone], Service support , Cervical Spine X-Ray 11/18/17 15:12 IMPRESSION: Straightening of the cervical lordosis with degenerative changes of the cervical spine. Electronically Signed: Froilan Valdes DO at 16:11 EDT Tel [phone], Service support , Assessment/Plan All Active Problems (Last Reviewed 11/03/17 @ 13:36 by Dia Stuart) DEVIN (acute kidney injury) (Acute) Hyperkalemia (Acute) Near syncope (Acute) Screening for intestinal cancer (Acute) Hypertensive urgency (Acute) ARF (acute renal failure) (Acute) Pre-syncope (Acute) 1. Acute kidney injury I suspect that this is prerenal IV fluids Hold losartan Given the patient has chronic kidney disease stage IV I am going to consult his bilingual sales representative, Dr. Mix 2. Hyperkalemia Further with the renal failure but also the ARB Patient received Kayexalate in the emergency room No acute EKG changes at this time Recheck lab work in the morning Hold losartan 3. Near syncope Orthostatics are negative I suspect that this is related with patient's dehydration but also some the abdominal cramping Patient abdominal cramping is resolved and I will not pursue any additional workup pertaining to that 4. Chronic kidney disease stage IV The acute worsening I feels only transient due to dehydration Nephrology on consultation No need for renal replacement therapy at this time 5. DVT prophylaxis with subcu heparin Code Visit Inpatient E&M: 43873 Init Hosp L3
--- NOTE | 2017-11-18 18:26 | HP.PCM_ITS ---
Problem List (1) DEVIN (acute kidney injury) Status: Acute (2) Hyperkalemia Status: Acute (3) Near syncope Status: Acute History of Present Illness Date of Admission: 11/18/17 Chief Complaint: near syncope The patient is a 72 year old M who was in his normal state of health up until early this morning where patient had cramps. I went to the restroom. I went back to his room and had a near syncopal and where he fell and felt dizzy. Patient went back to the bathroom again did have a bowel movement with cramps but then cramps resolved thereafter. Patient went back again and then another near syncopal episode and did his chin. Patient was brought to the emergency room in and found to have a creatinine of 4.2, with a baseline of 3.64. Potassium is also elevated at 5.9. Patient did receive IV fluids as well as Kayexalate. Orthostatic vital signs in the emergency room were negative. 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 DM2 (diabetes mellitus, type 2) (Chronic) E11.9 Hypertensive urgency (Acute) I16.0 ARF (acute renal failure) (Acute) HTN (hypertension) (Chronic) I10 Pre-syncope (Acute) Anemia D64.9 Hyperlipidemia E78.5 Allergies No Known Allergies Allergy (Verified 11/18/17 14:36) Home Medications: Ambulatory Orders Medication Instructions Recorded Amlodipine [Norvasc] 10 mg PO DAILY 06/23/17 Atorvastatin Calcium [Lipitor] 40 mg PO QHS 06/23/17 Calcitriol 5 mcg PO DAILY 06/23/17 Dulaglutide [Trulicity] 1.5 mg SQ REYNA 06/23/17 Ferrous Sulfate [Iron] 65 mg PO DAILY 06/23/17 Linagliptin [Tradjenta] 5 mg PO DAILY 06/23/17 Losartan Potassium 100 mg PO DAILY 06/23/17 Carvedilol [Coreg (Beta Samantha)] 12.5 mg PO BID 07/21/17 Surgical History: Surgical History (Last Reviewed 11/18/17 @ 18:24 by Santino De La Torre DO) S/P colonoscopy Z98.890 [place] teeth removed K08.409 Surgical History: no surgical history Lives: Spouse/ Significant Other Smoking Status: Former smoker Tobacco Use: Non-smoker Alcohol: None Drugs: None - *Family History Maternal Family History: Family History (Last Reviewed 11/18/17 @ 18:24 by Santino De La Torre DO) Father Pneumonia Mother CVA (cerebral vascular accident) History Items: Diabetes, Hypertension, Renal Disease, Stroke Paternal Family History: Family History (Last Reviewed 11/18/17 @ 18:24 by Santino De La Torre DO) Father Pneumonia Mother CVA (cerebral vascular accident) History Items: Heart Disease Review of Systems Constitutional: Reports: Weakness. Denies: Chills, Fever, Weight Change Eyes: Denies: Blurred vision, Double vision HEENT: Denies: Head Aches, Sinus Congestion, Sinus Drainage Cardiovascular: Denies: Chest Pain, Palpitations Respiratory: Denies: Cough, Shortness of breath at rest, Sputum production Gastrointestinal: Reports: Abdominal Pain, Nausea. Denies: Diarrhea, Vomiting Genitourinary: Reports: - - Decreased urinary output. Denies: Dysuria Musculoskeletal: Denies: Joint Pain, Joint Tenderness Skin: Denies: Rash, Wounds Neurological: Reports: Balance problems. Denies: Blurred vision, Double vision , Change in Speech, Confusion, Focal weakness, Incoordination Psychiatric: Denies: Anxiety, Depression Endocrine: Denies: Change in Body Habitus, Heat/ Cold Intolerance Hematologic/ Lymphatic: Denies: Easy Bruising, Easy Bleeding, Hx of blood clot Comment: All review of systems are negative except as mentioned in the history of present illness and the other review of systems. VTE Information - Inpt Only VTE Present on Admission: No VTE Mechan Device Prophylaxis: None VTE Pharm Prophylaxis ordered?: Yes Patient Problems: Active and Suspected Problems (Last Reviewed 11/03/17 @ 13:36 by Dia Stuart) DEVIN (acute kidney injury) (Acute) Hyperkalemia (Acute) Near syncope (Acute) - Physical Exam General: Alert, Cooperative, No apparent distress HEENT: Atraumatic, PERRLA, EOMI, Normocephalic Oral: Moist Mucosa, No Gingival or Mucosal Lesions/ Ulcerations Neck: No Nodes, Thyroid Normal Size and Texture Lungs: Clear to auscultation, Normal air movement, No rhonchi, No wheeze Cardiovascular: Regular rate, Regular Rhythm, Normal S1, Normal S2, No murmurs Abdomen: Bowel Sounds Present, Soft, Non Tender, Non-Distended, No Hepato- splenomegaly Extremities: No edema, No Calf Tenderness Skin: No rashes, No breakdown Musculoskeletal: No Tenderness to Palpation of Joints or Extremities, No Muscle Wasting Neurological: Cranial nerves II-XII grossly intact, Neuro grossly intact, Motor Exam 5/5 strength throughout, Muscle tone normal Psych/Mental Status: Normal Affect, Appropriate Vital Signs Temp Pulse Resp BP Pulse Ox 36.2 C L 77 17 186/72 H 99 11/18/17 14:33 11/18/17 17:20 11/18/17 17:20 11/18/17 17:20 11/18/17 17:20 Oxygen Delivery Method Room Air Weight: 96.162 kg Body Mass Index (BMI) 32.2 Laboratory Tests Past 24 Hrs 11/18/17 11/18/17 15:35 15:35 WBC 7.9 RBC 3.88 L Hgb 10.3 L Hct 32.3 L MCV 83.2 MCH 26.5 L MCHC 31.9 L RDW 14.0 RDW Differential 42.3 Plt Count 171 MPV 10.5 Immature Gran % (Auto) 0.100 Neut % (Auto) 69.7 Lymph % (Auto) 18.9 L [place] % (Auto) 6.7 Eos % (Auto) 4.3 Baso % (Auto) 0.3 Absolute Neuts (auto) 5.5 Absolute Lymphs (auto) 1.50 Total Counted Not Reportable Sodium 144 Potassium 5.9 H Chloride 115 H Carbon Dioxide 21.0 Anion Gap 8 BUN 55 H Creatinine 4.20 H Estim Creat Clear Calc 15.83 Est GFR (MDRD) Af Amer 18 L Est GFR (MDRD) Non-Af 15 L BUN/Creatinine Ratio 13.1 Glucose 183 H Calcium 8.2 L Troponin I < 0.015 EKG showed normal sinus rhythm right bundle branch block. No acute changes. Clinical Impression(s) from Imaging Studies Brain CT 11/18/17 15:10 IMPRESSION: No acute intracranial or calvarial abnormality. There is no interval change when compared to May 16, 2014. Electronically Signed: Froilan ValdesDO at 16:09 EDT Tel [phone], Service support , Chest X-Ray 11/18/17 15:10 IMPRESSION: No acute cardiopulmonary disease or major interval change. Electronically Signed: Froilan [place]DO shana at 16:12 EDT Tel [phone], Service support , Cervical Spine X-Ray 11/18/17 15:12 IMPRESSION: Straightening of the cervical lordosis with degenerative changes of the cervical spine. Electronically Signed: Froilan [place]DO shana at 16:11 EDT Tel [phone], Service support , Assessment/Plan All Active Problems (Last Reviewed 11/03/17 @ 13:36 by Dia Stuart) DEVIN (acute kidney injury) (Acute) Hyperkalemia (Acute) Near syncope (Acute) Screening for intestinal cancer (Acute) Hypertensive urgency (Acute) ARF (acute renal failure) (Acute) Pre-syncope (Acute) 1. Acute kidney injury * I suspect that this is prerenal * IV fluids * Hold losartan * Given the patient has chronic kidney disease stage IV I am going to consult his white metal caster, Dr. Mix 2. Hyperkalemia * Further with the renal failure but also the ARB * Patient received Kayexalate in the emergency room * No acute EKG changes at this time * Recheck lab work in the morning * Hold losartan 3. Near syncope * Orthostatics are negative * I suspect that this is related with patient's dehydration but also some the abdominal cramping * Patient abdominal cramping is resolved and I will not pursue any additional workup pertaining to that 4. Chronic kidney disease stage IV * The acute worsening I feels only transient due to dehydration * Nephrology on consultation * No need for renal replacement therapy at this time 5. DVT prophylaxis with subcu heparin Code Visit Inpatient E&M: 73649 Init Hosp L3
[2017-11-18] MEDS: Heparin Injection (Vial) 5,000 UNIT/ML VIAL 5000 UNIT SC (21:45)
[2017-11-18] MEDS: Atorvastatin Calcium 40 MG Tablet PO (21:45)
[2017-11-18] MEDS: Carvedilol 12.5 MG Tablet PO (21:45)
[2017-11-19] MEDS: 0.9% Normal Saline 1,000 ML 150 ML IV ×2 (02:39→09:23)
[2017-11-19 02:59] VITALS: PULSE 70
[2017-11-19 05:15] VITALS: BP 147/73; PULSE 78; RESP 16; TEMP 36.8; O2SAT 99
[2017-11-19 05:43] LABS: International Normalized Ratio 1.2; Prothrombin Time (Protime)PT. 14.9 SECONDS (11.7-14.9)
[2017-11-19 06:26] LABS: Albumin, Serum 2.8 g/dL (3.2-5.0); BUN 46 mg/dL (7-18); BUN/Creat Ratio 12.8 RATIO (10-20); Calcium,Total 7.6 mg/dL (8.5-10.1); Chloride 117 mmol/L (98-107); Creatinine, Serum 3.59 mg/dL (0.70-1.30); EST Glomerular Filtration Rate 18 mL/min (>60); Est Glom Filt Rate - Afr Amer 22 mL/min (>60); Estimated Creatinine Clearance 18.52 ml/min; Glucose 108 mg/dL (74-106); Phosphorus 4.4 mg/dL (2.5-4.9); Potassium 4.7 mmol/L (3.5-5.1); Sodium Level 146 mmol/L (136-145)
[2017-11-19 07:06] LABS: Bedside Glucose 113 mg/dL (70-110)
[2017-11-19 07:17] VITALS: PULSE 67
[2017-11-19 09:15] VITALS: BP 163/83; PULSE 69; RESP 16; TEMP 37.1; O2SAT 100
[2017-11-19] MEDS: Heparin Injection (Vial) 5,000 UNIT/ML VIAL 5000 UNIT SC (09:23)
[2017-11-19] MEDS: LINAGLIPTIN 5 MG TABLET PO (09:23)
[2017-11-19] MEDS: amLODIPine 10 MG Tablet PO (09:23)
[2017-11-19] MEDS: Ferrous Sulfate 325 MG Tablet PO (09:23)
[2017-11-19] MEDS: Carvedilol 25 MG Tablet PO (09:24)
--- NOTE | 2017-11-19 10:45 | CASEMGMT ---
SEE RN CM ASSESS LINK: D/C PLAN: Home Intro role to RN CM. Pt resting in bed, awake/alert/oriented. , Esperanza, @ bedside. Pt is independent @ home and no DME needs identified. Pt and denies needs at this time. CM to follow for discharge planning needs that may arise. Gabriel BSN NORMA CM
[2017-11-19 11:17] VITALS: PULSE 61
--- NOTE | 2017-11-19 12:28 | DCINST_ITS ---
- Discharge Diagnoses Current Active Problems: Current Active and Chronic Problems (Last Reviewed 11/18/17 @ 18:24 by Santino De La Torre DO) DEVIN (acute kidney injury) (Acute) Hyperkalemia (Acute) Near syncope (Acute) You will use the following diet at home:: Calorie/Carbohydrate Controlled ( specify 1200, 1400, etc) - 1800 alvaro / day, Cardiac - 2 g sodium daily, Renal ( restricted protein/sodium) Your food should be the consistency of: Regular Your liquids should be the consistency of: Regular/Thin Discharge Activity: Return to Normal Activity Allergies/Adverse Reactions: Allergies No Known Allergies Allergy (Verified 11/18/17 14:36) Medications to take at Discharge Amlodipine [Norvasc] 10 mg PO DAILY 06/23/17 Atorvastatin Calcium [Lipitor] 40 mg PO QHS 06/23/17 Calcitriol 5 mcg PO DAILY 06/23/17 Dulaglutide [Trulicity] 1.5 mg SQ REYNA 06/23/17 Ferrous Sulfate [Iron] 65 mg PO DAILY 06/23/17 Linagliptin [Tradjenta] 5 mg PO DAILY 06/23/17 Losartan Potassium 100 mg PO DAILY 06/23/17 Carvedilol [Coreg (Beta Samantha)] 12.5 mg PO BID 07/21/17 Primary Care Physician: Sy Sharma Chi, MD [Primary Care Provider] - Please follow up with your Primary Care Physician in: 1 week Test Results: Test results from this visit will be discussed in further detail at your follow- up appointment, if applicable. Please Follow Up With: Mary Mix DO Proposed Discharge Date: 11/19/17
--- NOTE | 2017-11-19 14:14 | PCM.DC.SUM ---
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 There is no interval change when compared to May 16, 2014. RAD/Chest 1 View (Portable) IMPRESSION: No acute cardiopulmonary disease or major interval change. RAD/Cerv Spine 2 or 3 Views IMPRESSION: Straightening of the cervical lordosis with degenerative changes of the cervical spine. Operations: None Procedures: None Summary of Care Provided: Physical exam on day of discharge: General: Resting comfortably NAD Psych: A/Ox3 normal affect HEENT: PEARRLA AT NC Neck: Supple NT CV: RRR no m/t/r/g/h Resp: CTA Abd: [id number] Soft NT no guarding or rigidity Ext: DP2+= no edema Skin: W/D normal turgor Lymph/Heme: No active bleeding or adenopathy Neuro: CN2-12 intact Hospital course: The patient is a 72 year old M with history of CKD stage IV, type 2 diabetes, hypertension, obstructive sleep apnea, who presented to the emergency room after experiencing a near syncopal episode. He had some abdominal cramps and went to the restroom and became dizzy. He had a second episode later that day. He came to the emergency room was found to have worsening of his underlying kidney disease with a creatinine of 4.2, baseline around 3.64, he also had elevated potassium of 5.9, in the ER his orthostatic vitals are negative. He had a x-ray of his C-spine which was negative, he also had a CT of the brain which was negative. Chest x-ray was unremarkable. Patient reported he had been outside working in the heat and not drinking very much water and felt he might be dehydrated. He was given IV fluids and admitted to the PCU on telemetry. He had no events on telemetry. Repeat lab work in the morning demonstrated improvement in his underlying CKD. His beck tender was called, Dr. Mix, and felt that he could be seen in the office that his numbers were improved significantly. With resolution of his AK I he was discharged home in stable condition. He will need to follow-up with his beck tender as directed, as well as with his PCP in 1-2 weeks. This patient was seen by Heladio Capps PA-C under the supervision of Doctor Leonard. [] Discharge Diet: Low fat/ Low Cholesterol, 1800 Calorie Control Diet, 2000 mg Sodium Diet, Renal Diet Discharge Activity: Return to Normal Activity Home Medications: Medications to take at Discharge Amlodipine [Norvasc] 10 mg PO DAILY 06/23/17 Atorvastatin Calcium [Lipitor] 40 mg PO QHS 06/23/17 Calcitriol 5 mcg PO DAILY 06/23/17 Dulaglutide [Trulicity] 1.5 mg SQ REYNA 06/23/17 Ferrous Sulfate [Iron] 65 mg PO DAILY 06/23/17 Linagliptin [Tradjenta] 5 mg PO DAILY 06/23/17 Losartan Potassium 100 mg PO DAILY 06/23/17 Carvedilol [Coreg (Beta Samantha)] 12.5 mg PO BID 07/21/17 Primary Care Physician: Sy Sharma Chi, MD [Primary Care Provider] - Please follow up with your Primary Care Physician in: 1 week Please Follow Up With: Mary Mix DO When: as directed Disposition: Home Minutes spent on discharge:: 35 Patient Condition:: Stable Medical Necessity - Tobacco Use Smoking Status: Former smoker Tobacco Use: Non-smoker Meaningful Use Info Meaningful Use Diagnoses (Choose all that apply): None applicable <Sary Leonard E - Last Filed: 11/19/17 14:57> Discharge Date and Diagnosis - Primary Discharge Diagnosis #1 acute kidney injury on top of stage IV chronic kidney disease. #2 hyperkalemia. 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 Patient was admitted because of near syncope. He was found to have acute kidney injury on top of stage IV chronic kidney disease. Symptoms seem to be due to vasovagal episode. He was found to have serum creatinine of 4.2 which is up from his baseline creatinine which was around 3 mg/dL. His potassium was 5.9. There was no EKG changes related to hyperkalemia. Patient was treated with IV fluids and received 1 dose of Kayexalate. Today, his kidney function improved as well as his potassium. He had a CT scan brain that showed no evidence of acute infarction or hemorrhage. He had a cervical spine x-ray that showed no fractures or dislocations. After discussion with nephrology, patient discharged home in a stable medical condition. He was discharged on the same medication that he was taking before admission without any changes, plan to follow-up with nephrology in 1 week, recommended from PCP in 1 week as well. - Physical Exam General: Alert, Oriented x3, Cooperative, No apparent distress. HEENT: Atraumatic, PERRLA, EOMI. Neck: Supple, No JVD, Negative Carotid Bruits, Trachea Midline, Thyroid Normal. Lungs: Clear to auscultation, Normal air movement, No rhonchi, No wheeze, No rales. Cardiovascular: Regular rate, Regular Rhythm, Normal S1, Normal S2, PMI Normal. Abdomen: Bowel Sounds Present, Soft, Non Tender, Non-Distended, No Hepato-splenomegaly. Extremities: No clubbing, No cyanosis, No edema Skin: No rashes, No breakdown Neurological: Neuro grossly intact This note was generated with [employer] software. It may contain incorrect words, spelling, and punctuation that were not noted in checking the note before signing. Minutes spent on discharge:: 26 Patient Condition:: Stable Meaningful Use Info Meaningful Use Diagnoses (Choose all that apply): None applicable Code Visit Inpatient E&M: 12692 Disch Hosp
--- NOTE | 2017-11-19 14:18 | DS.PCM_ITS ---
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 There is no interval change when compared to May 16, 2014. RAD/Chest 1 View (Portable) IMPRESSION: No acute cardiopulmonary disease or major interval change. RAD/Cerv Spine 2 or 3 Views IMPRESSION: Straightening of the cervical lordosis with degenerative changes of the cervical spine. Operations: None Procedures: None Summary of Care Provided: Physical exam on day of discharge: General: Resting comfortably NAD Psych: A/Ox3 normal affect HEENT: PEARRLA AT NC Neck: Supple NT CV: RRR no m/t/r/g/h Resp: CTA Abd: [id number] Soft NT no guarding or rigidity Ext: DP2+= no edema Skin: W/D normal turgor Lymph/Heme: No active bleeding or adenopathy Neuro: CN2-12 intact Hospital course: The patient is a 72 year old M with history of CKD stage IV, type 2 diabetes, hypertension, obstructive sleep apnea, who presented to the emergency room after experiencing a near syncopal episode. He had some abdominal cramps and went to the restroom and became dizzy. He had a second episode later that day. He came to the emergency room was found to have worsening of his underlying kidney disease with a creatinine of 4.2, baseline around 3.64, he also had elevated potassium of 5.9, in the ER his orthostatic vitals are negative. He had a x-ray of his C-spine which was negative, he also had a CT of the brain which was negative. Chest x-ray was unremarkable. Patient reported he had been outside working in the heat and not drinking very much water and felt he might be dehydrated. He was given IV fluids and admitted to the PCU on telemetry. He had no events on telemetry. Repeat lab work in the morning demonstrated improvement in his underlying CKD. His data visualization developer was called, Dr. Mix, and felt that he could be seen in the office that his numbers were improved significantly. With resolution of his AK I he was discharged home in stable condition. He will need to follow-up with his data visualization developer as directed, as well as with his PCP in 1-2 weeks. This patient was seen by Helaido Capps PA-C under the supervision of Doctor Leonard. [] Discharge Diet: Low fat/ Low Cholesterol, 1800 Calorie Control Diet, 2000 mg Sodium Diet, Renal Diet Discharge Activity: Return to Normal Activity Home Medications: Medications to take at Discharge Amlodipine [Norvasc] 10 mg PO DAILY 06/23/17 Atorvastatin Calcium [Lipitor] 40 mg PO QHS 06/23/17 Calcitriol 5 mcg PO DAILY 06/23/17 Dulaglutide [Trulicity] 1.5 mg SQ REYNA 06/23/17 Ferrous Sulfate [Iron] 65 mg PO DAILY 06/23/17 Linagliptin [Tradjenta] 5 mg PO DAILY 06/23/17 Losartan Potassium 100 mg PO DAILY 06/23/17 Carvedilol [Coreg (Beta Samantha)] 12.5 mg PO BID 07/21/17 Primary Care Physician: Sy Sharma Chi, MD [Primary Care Provider] - Please follow up with your Primary Care Physician in: 1 week Please Follow Up With: Mary Mix DO When: as directed Disposition: Home Minutes spent on discharge:: 35 Patient Condition:: Stable Medical Necessity - Tobacco Use Smoking Status: Former smoker Tobacco Use: Non-smoker Meaningful Use Info Meaningful Use Diagnoses (Choose all that apply): None applicable <Sary Leonard E - Last Filed: 11/19/17 14:57> Discharge Date and Diagnosis - Primary Discharge Diagnosis #1 acute kidney injury on top of stage IV chronic kidney disease. #2 hyperkalemia. 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 Patient was admitted because of near syncope. He was found to have acute kidney injury on top of stage IV chronic kidney disease. Symptoms seem to be due to vasovagal episode. He was found to have serum creatinine of 4.2 which is up from his baseline creatinine which was around 3 mg/dL. His potassium was 5.9. There was no EKG changes related to hyperkalemia. Patient was treated with IV fluids and received 1 dose of Kayexalate. Today, his kidney function improved as well as his potassium. He had a CT scan brain that showed no evidence of acute infarction or hemorrhage. He had a cervical spine x-ray that showed no fractures or dislocations. After discussion with nephrology, patient discharged home in a stable medical condition. He was discharged on the same medication that he was taking before admission without any changes, plan to follow-up with nephrology in 1 week, recommended from PCP in 1 week as well. - Physical Exam General: Alert, Oriented x3, Cooperative, No apparent distress. HEENT: Atraumatic, PERRLA, EOMI. Neck: Supple, No JVD, Negative Carotid Bruits, Trachea Midline, Thyroid Normal. Lungs: Clear to auscultation, Normal air movement, No rhonchi, No wheeze, No rales. Cardiovascular: Regular rate, Regular Rhythm, Normal S1, Normal S2, PMI Normal. Abdomen: Bowel Sounds Present, Soft, Non Tender, Non-Distended, No Hepato- splenomegaly. Extremities: No clubbing, No cyanosis, No edema Skin: No rashes, No breakdown Neurological: Neuro grossly intact This note was generated with [employer] software. It may contain incorrect words, spelling, and punctuation that were not noted in checking the note before signing. Minutes spent on discharge:: 26 Patient Condition:: Stable Meaningful Use Info Meaningful Use Diagnoses (Choose all that apply): None applicable Code Visit Inpatient E&M: 15866 Disch Hosp
--- NOTE | 2017-11-22 13:24 | CASEMGMT ---
RN CM NOTE: attempted call to home, no answer. 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 Debbie GUDINON RN ACM
== END 2017-11-19 12:40 | disposition home or self-care (01) | DRG 684 ==
LOC: ED 15:51 → PCU 18:54
PROVIDERS: Internal Medicine Nephrology; Emergency Provider Emergency Medicine; Family Provider Family Medicine Geriatric Medicine; PCP Family Medicine Geriatric Medicine; Visit Provider Hospitalist
DX: N17.9 Acute kidney failure, unspecified (principal); E87.5 Hyperkalemia; R55 Syncope and collapse; N18.4 Chronic kidney disease, stage 4 (severe); E86.0 Dehydration; G47.33 Obstructive sleep apnea (adult) (pediatric); E11.22 Type 2 diabetes mellitus with diabetic chronic kidney disease; I12.9 Hypertensive chronic kidney disease with stage 1 through stage 4 chronic kidney disease, or unspecified chronic kidney disease; E66.9 Obesity, unspecified; Z68.32 Body mass index [BMI] 32.0-32.9, adult; D63.1 Anemia in chronic kidney disease; S16.1XXA Strain of muscle, fascia and tendon at neck level, initial encounter; W19.XXXA Unspecified fall, initial encounter; Z79.899 Other long term (current) drug therapy
CPT/HCPCS: 36415; 70450; 71045; 72040; 80048; 80069; 82962; 84484; 85025; 85610; 93005; 99285; J7030; A4216

== ENCOUNTER → 2017-11-30 14:29 | Outpatient (CLI) | payer OTHER, SELFPAY ==
[2017-11-30 15:32] LABS: Hematocrit 32.3 % (40-54); Hemoglobin 10.5 g/dl (13.0-16.5); Mean Corp Hgb Conc 32.5 g/gl (32-36); Mean Corpuscular Hgb 27.1 pg (27.0-32.0); Mean Corpuscular Volume 83.2 fL (80-94); Mean Platelet Vol. 11.1 fl (6.2-12.0); Platelet Count 222 K/mm3 (150-450); RBC Distribution Width CV 13.4 % (11.6-14.6); Red Blood Count 3.88 M/mm3 (4.6-6.2); White Blood Count 7.4 K/mm3 (4.4-11.0)
[2017-11-30 15:41] LABS: Scan Indicated on CBC? Y/N NO
[2017-11-30 16:03] LABS: Anion Gap 12 (5-15); BUN 52 mg/dL (7-18); BUN/Creat Ratio 13.8 RATIO (10-20); Calcium,Total 8.4 mg/dL (8.5-10.1); Chloride 111 mmol/L (98-107); Creatinine, Serum 3.77 mg/dL (0.70-1.30); EST Glomerular Filtration Rate 17 mL/min (>60); Est Glom Filt Rate - Afr Amer 21 mL/min (>60); Glucose 138 mg/dL (74-106); Potassium 5.2 mmol/L (3.5-5.1); Sodium Level 143 mmol/L (136-145)
== END ==
PROVIDERS: Family Provider Family Medicine Geriatric Medicine; PCP Family Medicine Geriatric Medicine; Visit Provider Internal Medicine Nephrology
DX: N18.4 Chronic kidney disease, stage 4 (severe) (principal); D63.8 Anemia in other chronic diseases classified elsewhere; N25.81 Secondary hyperparathyroidism of renal origin
CPT/HCPCS: 36415; 80048; 83970; 85027

== ENCOUNTER → 2017-12-22 11:45 | Outpatient (CLI) | payer OTHER, SELFPAY ==
[2017-12-22 12:40] LABS: Absolute Lymphocyte Count 1.66 X10^3/ul (0.83-4.51); Absolute Neutrophil Count 4.6 X10^3/uL (2.0-7.7); Basophil# 0.03 X10^3/uL; Basophil% 0.4 % (0-1); Eosinophil# 0.76 X10^3/uL; Eosinophils% 10.1 % (0-5); Hematocrit 32.5 % (40-54); Hemoglobin 10.6 g/dl (13.0-16.5); Lymphocyte # 1.66 X10^3/ul (4.0); Mean Corp Hgb Conc 32.6 g/gl (32-36); Mean Corpuscular Hgb 26.6 pg (27.0-32.0); Mean Corpuscular Volume 81.5 fL (80-94); Mean Platelet Vol. 11.1 fl (6.2-12.0); Monocyte# 0.52 X10^3/uL; Monocyte% 6.9 % (0-10); Neutrophil # 4.55 X10^3/uL (2.7-7.7); Neutrophil % 60.2 % (47-70); POSITIVE COUNT NO; POSITIVE DIFFERENTIAL NO; POSITIVE MORPHOLOGY NO; Platelet Count 211 K/mm3 (150-450); RBC Distribution Width CV 13.9 % (11.6-14.6); RBC Distribution Width SD 39.7 fl (35.1-43.9); Red Blood Count 3.99 M/mm3 (4.6-6.2); White Blood Count 7.6 K/mm3 (4.4-11.0)
[2017-12-22 13:07] LABS: ALB/GLOB Ratio 0.7 RATIO (0.9-2.4); AST(SGOT) 11 U/L (15-37); Alanine Aminotransfer ALT/SGPT 21 U/L (16-61); Albumin, Serum 2.9 g/dL (3.2-5.0); Alkaline Phosphatase 69 U/L (45-117); Anion Gap 10 (5-15); BUN 50 mg/dL (7-18); BUN/Creat Ratio 13.4 RATIO (10-20); Calcium,Total 8.2 mg/dL (8.5-10.1); Chloride 109 mmol/L (98-107); Creatinine, Serum 3.74 mg/dL (0.70-1.30); EST Glomerular Filtration Rate 17 mL/min (>60); Est Glom Filt Rate - Afr Amer 21 mL/min (>60); Globulin 3.9 g/dL (2.2-4.2); Glucose 200 mg/dL (74-106); Potassium 5.5 mmol/L (3.5-5.1); Protein, Total 6.8 g/dL (6.4-8.2); Sodium Level 138 mmol/L (136-145); Thyroid Stim Hormone (TSH) 2.81 uIU/mL (0.358-3.74)
[2017-12-22 13:10] LABS: Vitamin D,25 Hydroxy 14.1 ng/mL (29.95-100.01)
== END ==
PROVIDERS: Family Provider Family Medicine Geriatric Medicine; PCP Family Medicine Geriatric Medicine; Visit Provider Family Medicine Geriatric Medicine
DX: E11.9 Type 2 diabetes mellitus without complications (principal); E55.9 Vitamin D deficiency, unspecified; I10 Essential (primary) hypertension
CPT/HCPCS: 36415; 80053; 82306; 84443; 85025

== ENCOUNTER → 2017-12-30 14:02 | Outpatient (CLI) | payer OTHER, SELFPAY ==
[2017-12-30 17:26] LABS: BUN 56 mg/dL (7-18); BUN/Creat Ratio 15.7 RATIO (10-20); Calcium,Total 8.4 mg/dL (8.5-10.1); Chloride 110 mmol/L (98-107); Creatinine, Serum 3.56 mg/dL (0.70-1.30); EST Glomerular Filtration Rate 18 mL/min (>60); Est Glom Filt Rate - Afr Amer 22 mL/min (>60); Glucose 124 mg/dL (74-106); Sodium Level 137 mmol/L (136-145)
== END ==
PROVIDERS: Family Provider Family Medicine Geriatric Medicine; PCP Family Medicine Geriatric Medicine; Visit Provider Internal Medicine Nephrology
DX: I10 Essential (primary) hypertension (principal)
CPT/HCPCS: 36415; 80069

== ENCOUNTER → 2018-01-18 10:47 | Outpatient (CLI) | payer OTHER, SELFPAY ==
[2018-01-18 12:41] LABS: Hematocrit 34.6 % (40-54); Hemoglobin 11.2 g/dl (13.0-16.5); Mean Corp Hgb Conc 32.4 g/gl (32-36); Mean Corpuscular Volume 80.3 fL (80-94); Mean Platelet Vol. 10.6 fl (6.2-12.0); Platelet Count 225 K/mm3 (150-450); RBC Distribution Width CV 14.2 % (11.6-14.6); RBC Distribution Width SD 40.9 fl (35.1-43.9); Red Blood Count 4.31 M/mm3 (4.6-6.2); White Blood Count 7.9 K/mm3 (4.4-11.0)
[2018-01-18 12:43] LABS: Scan Indicated on CBC? Y/N NO
[2018-01-18 12:53] LABS: BUN 47 mg/dL (7-18); BUN/Creat Ratio 12.5 RATIO (10-20); Calcium,Total 8.1 mg/dL (8.5-10.1); Chloride 113 mmol/L (98-107); Creatinine, Serum 3.76 mg/dL (0.70-1.30); EST Glomerular Filtration Rate 17 mL/min (>60); Est Glom Filt Rate - Afr Amer 21 mL/min (>60); Glucose 232 mg/dL (74-106); Phosphorus 4.1 mg/dL (2.5-4.9); Potassium 5.3 mmol/L (3.5-5.1); Sodium Level 141 mmol/L (136-145)
[2018-01-18 14:52] LABS: PTHIN 269.3 pg/mL (18.4-80.1)
== END ==
PROVIDERS: Family Provider Family Medicine Geriatric Medicine; PCP Family Medicine Geriatric Medicine; Visit Provider Internal Medicine Nephrology
DX: N18.4 Chronic kidney disease, stage 4 (severe) (principal); D63.1 Anemia in chronic kidney disease; N25.81 Secondary hyperparathyroidism of renal origin
CPT/HCPCS: 36415; 80069; 83970; 85027

== ENCOUNTER → 2018-03-14 11:53 | Outpatient (CLI) | payer OTHER, SELFPAY ==
[2018-03-10 11:47] VITALS: BMI 32.5
[2018-03-14 12:31] LABS: Absolute Lymphocyte Count 1.84 X10^3/ul (0.83-4.51); Absolute Neutrophil Count 4.4 X10^3/uL (2.0-7.7); Basophil# 0.03 X10^3/uL; Basophil% 0.4 % (0-1); Eosinophil# 0.66 X10^3/uL; Eosinophils% 8.8 % (0-5); Hematocrit 33.8 % (40-54); Hemoglobin 10.9 g/dl (13.0-16.5); Lymphocyte # 1.84 X10^3/ul (4.0); Lymphocyte % 24.6 % (19-41); Mean Corp Hgb Conc 32.2 g/gl (32-36); Mean Corpuscular Hgb 25.1 pg (27.0-32.0); Mean Corpuscular Volume 77.7 fL (80-94); Mean Platelet Vol. 10.4 fl (6.2-12.0); Monocyte# 0.57 X10^3/uL; Monocyte% 7.6 % (0-10); Neutrophil # 4.36 X10^3/uL (2.7-7.7); Neutrophil % 58.5 % (47-70); Platelet Count 190 K/mm3 (150-450); RBC Distribution Width CV 14.9 % (11.6-14.6); RBC Distribution Width SD 42.2 fl (35.1-43.9); Red Blood Count 4.35 M/mm3 (4.6-6.2); White Blood Count 7.5 K/mm3 (4.4-11.0)
[2018-03-14 12:37] LABS: POSITIVE COUNT NO; POSITIVE DIFFERENTIAL NO; POSITIVE MORPHOLOGY NO
[2018-03-14 13:09] LABS: PTHIN 124.5 pg/mL (18.4-80.1); Vitamin D,25 Hydroxy 29.6 ng/mL (29.95-100.01)
[2018-03-14 13:13] LABS: ALB/GLOB Ratio 0.8 RATIO (0.9-2.4); AST(SGOT) 14 U/L (15-37); Alanine Aminotransfer ALT/SGPT 17 U/L (16-61); Alkaline Phosphatase 66 U/L (45-117); Anion Gap 13 (5-15); BUN 53 mg/dL (7-18); BUN/Creat Ratio 13.3 RATIO (10-20); Calcium,Total 8.1 mg/dL (8.5-10.1); Chloride 108 mmol/L (98-107); Creatinine, Serum 3.99 mg/dL (0.70-1.30); EST Glomerular Filtration Rate 16 mL/min (>60); Est Glom Filt Rate - Afr Amer 19 mL/min (>60); Glucose 207 mg/dL (74-106); PSA,Total - Annual Screen 0.77 ng/mL (0.00-4.00); Phosphorus 3.9 mg/dL (2.5-4.9); Potassium 4.7 mmol/L (3.5-5.1); Sodium Level 139 mmol/L (136-145)
--- OUTSIDE RECORDS SUMMARY | 2018-05-07 18:13 | XMS RPT_ITS ---
:1945 Author Organization OHIP Support Name Relationship Address Phone JULIOCESAR ESPERANZA Unavailable [address] + [place] [address] R Unavailable Unavailable Unavailable KALIKASINGH, ESPERANZA Unavailable [address] + [place] [address] R Unavailable Unavailable Unavailable KALIKASINGH, ESPERANZA Unavailable [address] + [place] [address] R Unavailable Unavailable Unavailable KALIKASINGH, ESPERANZA Unavailable [address] + [place] [address] R Unavailable Unavailable Unavailable KALIKASINGH, ESPERANZA Unavailable [address] + [place] [address] R Unavailable Unavailable Unavailable KALIKASINGH, ESPERANZA Unavailable [address] + [place] [address] R Unavailable Unavailable Unavailable KALIKASINGH, ESPERANZA Unavailable [address] + [place] [address] R Unavailable Unavailable Unavailable KALIKASINGH, ESPERANZA Unavailable [address] + [place] [address] R Unavailable Unavailable Unavailable KALIKASINGH, ESPERANZA Unavailable [address] + [place] [address] R Unavailable Unavailable Unavailable KALIKASINGH, ESPERANZA Unavailable [address] + [place] [address] R Unavailable Unavailable Unavailable KALIKASINGH, ESPERANZA Unavailable [address] + [place] [address] R Unavailable Unavailable Unavailable KALIKASINGH, ESPERANZA Unavailable [address] + [place] [address] R Unavailable Unavailable Unavailable KALIKASINGH, ESPERANZA Unavailable [address] + [place] [address] R Unavailable Unavailable Unavailable KALIKASINGH, ESPERANZA Unavailable [address] + [place] [address] R Unavailable Unavailable Unavailable KALIKASINGH, ESPERANZA Unavailable [address] + [place] [address] R Unavailable Unavailable Unavailable KALIKASINGH, ESPERANZA Unavailable [address] + [place] [address] R Unavailable Unavailable Unavailable KALIKASINGH, ESPERANZA Unavailable [address] + [place] [address] R Unavailable Unavailable Unavailable KALIKASINGH, ESPERANZA Unavailable [address] + [place] [address] R Unavailable Unavailable Unavailable KALIKASINGH, GENO Unavailable [address] + [place] [address] R Unavailable Unavailable Unavailable KALIKASINGH, GENO Unavailable [address] + [place] [address] R Unavailable Unavailable Unavailable KALIKASINGH, GENO Unavailable [address] + [place] [address] R Unavailable Unavailable Unavailable KALIKASINGH, GENO Unavailable [address] + [place] [address] R Unavailable Unavailable Unavailable KALIKASINGH, GENO Unavailable [address] + [place] [address] R Unavailable Unavailable Unavailable KALIKASINGH, GENO Unavailable [address] + [place] [address] R Unavailable Unavailable Unavailable KALIKASINGH, GENO Unavailable [address] + [place] [address] R Unavailable Unavailable Unavailable KALIKASINGH, GENO Unavailable [address] [phone] [place] [address] R Unavailable Unavailable Unavailable KALIKASINGH, GENO Unavailable [address] [phone] [place] [address] R Unavailable Unavailable Unavailable KALIKASINGH, GENO Unavailable [address] [phone] [place] [address] R Unavailable Unavailable Unavailable KALCHRISTOPHERSINGIGI GENO Unavailable [address] [phone] [place] [address] R Unavailable Unavailable Unavailable KALIKASINGIGI, GENO Unavailable [address] [phone] [place] [address] R Unavailable Unavailable Unavailable KALANGELY GENO Unavailable [address] [phone] [place] [address] R Unavailable Unavailable Unavailable JULIOCESAR GENO Unavailable [address] [phone] [place] [address] R Unavailable Unavailable Unavailable R Unavailable Unavailable Unavailable R Unavailable Unavailable Unavailable R Unavailable Unavailable Unavailable R Unavailable Unavailable Unavailable ELLIOTSINBLANCHE YUISTY Unavailable [address] + [place] [address] R Unavailable Unavailable Unavailable R Unavailable Unavailable Unavailable ELLIOTSINBLANCHE YUISTY Unavailable [address] + [place] [address] R Unavailable Unavailable Unavailable R Unavailable Unavailable Unavailable ELLIOTSINGIGI ESPERANZA Unavailable [address] [phone] [place] [address] JULIOCESAR BERTHA Unavailable [address] + [place] [address] R Unavailable Unavailable Unavailable KALCHRISTOPHERSINGIGI ESPERANZA Unavailable [address] [phone] [place] [address] JULIOCESAR BERTHA Unavailable [address] + [place] [address] R Unavailable Unavailable Unavailable R Unavailable Unavailable Unavailable Care Team Providers Name Role Phone MARY MIX Referring Unavailable TRISH AYERS (RD) Attending Unavailable DOMINGUEZ, MARY Referring Unavailable DOMINGUEZ, MARY Referring Unavailable DOMINGUEZ, MARY Referring Unavailable DOMINGUEZ, MARY Referring Unavailable DOMINGUEZ, MARY Referring Unavailable DOMINGUEZ, MARY Referring Unavailable DOMINGUEZ, MARY Referring Unavailable DOMINGUEZ, MARY Referring Unavailable DOMINGUEZ MARY Referring Unavailable DOMINGUEZ MARY Referring Unavailable BRANDON HOWARD Referring Unavailable RAVINDER JONES (CIERA) Attending Unavailable LUIZ PEREZ Referring Unavailable CHADWICK TURNER Referring Unavailable NANCY OLGUIN Referring Unavailable DOMINGUEZ, MARY Referring Unavailable Zachary, Sy Chi Primary Care Unavailable Dominguez Mary Attending Unavailable Zachary, Sy Chi Attending Unavailable Zachary, Sy Chi Primary Care Unavailable Zachary, Sy Chi Attending Unavailable Zachary, Sy Chi Referring Unavailable Zachary, Sy Chi Primary Care Unavailable Bhavani Ramos Attending Unavailable Zachary, Sy Chi Referring Unavailable Aidan Lin Attending Unavailable Zachary, Sy Chi Referring Unavailable Dominguez, Mary Attending Unavailable Zachary, Sy Chi Primary Care Unavailable Brian Smith D.O. Attending Unavailable Zachary, Sy Chi Referring Unavailable Zachary, Sy Chi Attending Unavailable Zachary, Sy Chi Primary Care Unavailable Zachary, Sy Chi Attending Unavailable Zachary, Sy Chi Primary Care Unavailable Zachary, Sy Chi Attending Unavailable Zachary, Sy Chi Primary Care Unavailable Isckarus, Mansour Attending Unavailable Zachary, Sy Chi Referring Unavailable Zachary, Sy Chi Primary Care Unavailable Isckarus, Mansour Attending Unavailable Zachary, Sy Chi Referring Unavailable Zachary, Sy Chi Primary Care Unavailable Isckarus, Mansour Consulting Unavailable Isckarus, Mansour Attending Unavailable Zachary, Sy Chi Referring Unavailable Zachary, Sy Chi Primary Care Unavailable Isckarus, Mansour Consulting Unavailable Cebul, Carlos Manuel Attending Unavailable Zachary, Sy Chi Referring Unavailable Zachary, Sy Chi Primary Care Unavailable Dominguez Mary Attending Unavailable Zachary, Sy Chi Primary Care Unavailable Dominguez, Mary Referring Unavailable Isckarus, Mansour Consulting Unavailable Cebul, Carlos Manuel Attending Unavailable Cebul, Carlos Manuel Referring Unavailable Zachary, Sy Chi Primary Care Unavailable Cebul, Carlos Manuel Attending Unavailable Cebul, Carlos Manuel Referring Unavailable Zachary, Sy Chi Primary Care Unavailable Cebul, Carlos Manuel Consulting Unavailable Dominguez, Mary Attending Unavailable Dominguez, Mary Referring Unavailable Zachary, Sy Chi Primary Care Unavailable Isckarus, Mansour Attending Unavailable Zachary, Sy Chi Referring Unavailable Zachary, Sy Chi Primary Care Unavailable Isckarus, Mansour Consulting Unavailable Cebul, Carlos Manuel Attending Unavailable Zachary, Sy Chi Referring Unavailable Zachary, Sy Chi Primary Care Unavailable Isckarus, Mansour Attending Unavailable Isckarus, Mansour Attending Unavailable Zachary, Sy Chi Referring Unavailable Zachary, Sy Chi Primary Care Unavailable Isckarus, Mansour Consulting Unavailable Isckarus, Mansour Attending Unavailable Zachary, Sy Chi Referring Unavailable Zachary, Sy Chi Primary Care Unavailable Isckarus, Mansour Consulting Unavailable Carlos Manuel Sorto Attending Unavailable Dominguez, Mary Attending Unavailable Zachary, Sy Chi Primary Care Unavailable Zachary, Sy Chi Primary Care Unavailable Jopperi, Santino Admitting Unavailable Ashelfah, Ghasem Attending Unavailable Dominguez, Mary Consulting Unavailable Jopperi, Santino Attending Unavailable Zachary, Sy Chi Primary Care Unavailable Jopperi, Santino Admitting Unavailable Zachary, Sy Chi Primary Care Unavailable Dominguez, Mary Consulting Unavailable Ashelfah, Ghasem Attending Unavailable Ashelfah, Ghasem Consulting Unavailable Isckarus, Mansour Attending Unavailable Zachary, Sy Chi Referring Unavailable Zachary, Sy Chi Primary Care Unavailable Isckarus, Mansour Consulting Unavailable Dominguez, Mary Attending Unavailable Zachary, Sy Chi Primary Care Unavailable Dominguez, Mary Attending Unavailable Zachary, Sy Chi Primary Care Unavailable Isckarus, Mansour Attending Unavailable Zachary, Sy Chi Referring Unavailable Zachary, Sy Chi Primary Care Unavailable Isckarus, Mansour Consulting Unavailable Zachary, Sy Chi Attending Unavailable Zachary, Sy Chi Primary Care Unavailable Zachary, Sy Chi Attending Unavailable Zachary, Sy Chi Primary Care Unavailable Aidan Lin Attending Unavailable Koram, Belen Shannon Referring Unavailable Isckarus, Mansour Attending Unavailable Zachary, Sy Chi Referring Unavailable Zachary, Sy Chi Primary Care Unavailable Isckarus, Mansour Consulting Unavailable Dominguez, Mary Attending Unavailable Zachary, Sy Chi Primary Care Unavailable Isckarus, Mansour Attending Unavailable Zachary, Sy Chi Referring Unavailable Zachary, Sy Chi Primary Care Unavailable Isckarus, Mansour Consulting Unavailable Isckarus, Mansour Attending Unavailable Zachary, Sy Chi Referring Unavailable Zachary, Sy Chi Primary Care Unavailable Isckarus, Mansour Consulting Unavailable Isckarus, Mansour Attending Unavailable Zachary, Sy Chi Referring Unavailable Zachary, Sy Chi Primary Care Unavailable Isckarus, Mansour Consulting Unavailable Dominguez, Mary Attending Unavailable Zachary, Sy Chi Primary Care Unavailable PROBLEMS PROBLEMS DATE TYPE CONDITION / CODE ATTENDING STATUS SOURCE 03/15/2018 Unknown N18.4 - Chronic kidney Mary Mix Active [place] disease, stage 4 Community (severe) / Hospital N18.4(ICD-10) Repository 12/22/2017 Unknown E11.9 - Type 2 Zachary, Sy Chi Active [place] diabetes mellitus Community without complications Hospital / E11.9(ICD-10) Repository 12/22/2017 Unknown I10 - Essential Zachary, Sy Chi Active [place] (primary) hypertension Community / I10(ICD-10) Hospital Repository 12/22/2017 Unknown E55.9 - Vitamin D Zachary, Sy Chi Active [place] deficiency, Community unspecified / Hospital E55.9(ICD-10) Repository 12/30/2017 Unknown I48.91 - Unspecified Riley, Aidan Active [place] atrial fibrillation / Community I48.91(ICD-10) Hospital Repository 12/30/2017 Unknown R94.31 - Abnormal Riley, Aidan Active [place] electrocardiogram Community [ECG] [EKG] / Hospital R94.31(ICD-10) Repository 07/22/2017 Active Encounter for NA Active [facility] Main cardiovascular [place] examination / Repository Z01.810(ICD-10) 07/22/2017 Active Encounter for NA Active [facility] screening for Clinic Main malignant neoplasm of [place] colon / Z12.11(ICD-10) Repository 07/22/2017 Active Chronic kidney NA Active [facility] disease, stage 4 Clinic Main (severe) / [place] N18.4(ICD-10) Repository 07/09/2017 Unknown D64.9 - Anemia, Cebul, Carlos Manuel Active [place] unspecified / Community D64.9(ICD-10) Hospital Repository 06/28/2017 Active Encounter for other NA Active [facility] Main examination / [place] Z01.818(ICD-10) Repository 06/28/2017 Active Type 2 diabetes NA Active [facility] mellitus without Clinic Main complications / [place] E11.9(ICD-10) Repository 06/25/2015 Active Essential (primary) NA Active [facility] hypertension / Clinic Main I10(ICD-10) [place] Repository 03/29/2015 Active Mixed hyperlipidemia / NA Active [facility] E78.2(ICD-10) Clinic Main [place] Repository 06/28/2017 Active Unspecified kidney NA Active [facility] failure / N19(ICD-10) Clinic Main [place] Repository 06/28/2017 Active Encounter for NA Active [facility] screening for [facility] Main infections with a [place] predominantly sexual Repository mode of transmission / Z11.3(ICD-10) 06/28/2017 Active Encounter for NA Active [facility] for [facility] Main malignant neoplasm of [place] prostate / Repository Z12.5(ICD-10) 06/28/2017 Active Other specified NA Active [place] symptoms and signs [facility] Main involving the [place] digestive system and Repository abdomen / R19.8(ICD-10) 06/28/2017 Active Unknown / UNK(Unknown) NA Active [facility] [place] Repository 06/16/2017 Unknown E87.6 - Hypokalemia / Zachary, Sy Chi Active [place] E87.6(ICD-10) [facility] Repository 05/03/2017 Unknown G47.33 - Obstructive Ramos, Active [place] sleep apnea (adult) [facility] (pediatric[facility] / Hospital G47.33(ICD-10) Repository 04/16/2017 Unknown G47.30 - Sleep apnea, Zachary, Sy Chi Active [place] unspecified / [facility] G47.30(ICD-10) Hospital Repository 05/04/2017 Unknown R06.02 - Shortness of Riley, Aidan Active [place] breath / [facility] R06.02(ICD-10) Hospital Repository PROCEDURES PROCEDURES No Procedure Records FoundRESULTS RESULTS CBC W/DIFF, AUTOMATED Collected: 03/14/2018 Status: F Source: [place] 11:54 AM REPOSITORY Order Comment: DR MIX ORDERED CBC PTH RENAL ONLY TYPE CODE TESTS RESULT OUT OF RANGE REFERENCE UNITS LAB L100.1000 4.4-11.0 K/mm3 Normal WBC 7.5 LAB L100.1200 4.6-6.2 M/mm3 Low RBC 4.35 LAB L100.1300 13.0-16.5 g/dl Low HGB 10.9 LAB L100.1400 40-54 % Low HCT 33.8 LAB L100.1500 80-94 fL Low MCV 77.7 LAB L100.1600 27.0-32.0 pg Low MCH 25.1 LAB L100.1700 32-36 g/gl Normal MCHC 32.2 LAB L100.1810 11.6-14.6 % High RDW CV 14.9 LAB L100.1820 35.1-43.9 fl Normal RDW SD 42.2 LAB L100.1900 150-450 K/mm3 Normal PLT 190 LAB L100.2000 6.2-12.0 fl Normal MPV 10.4 LAB L100.2100 47-70 % Normal NEUT% 58.5 LAB L100.2200 19-41 % Normal LY% 24.6 LAB L100.2300 0-10 % Normal MONO% 7.6 LAB L100.2400 0-5 % High EO% 8.8 LAB L100.2500 0-1 % Normal BASO% 0.4 LAB L100.2550 0.0-0.9 % Normal IM GRAN % 0.100 Result Comment: IG% - Immature Granulocytes (promyelocytes, myelocytes and metamyelocytes) > 1% indicates that a LEFT SHIFT is Present. LAB L100.2620 2.0-7.7 X10 3/uL Normal Absolute Neut 4.4 LAB L100.2720 0.83-4.51 X10 3/ul Normal Absolute Lymph 1.84 Performed By: #### L100.0100 #### [facility] [address] [place], [place], [address] PTHIN Collected: 03/14/2018 Status: F Source: [place] 11:54 AM REPOSITORY Order Comment: DR MIX ORDERED CBC PTH RENAL ONLY TYPE CODE TESTS RESULT OUT OF RANGE REFERENCE UNITS LAB L509.1000 18.4-80.1 pg/mL High PTHIN 124.5 Performed By: #### L509.1000 #### [facility] [address] [place], [place], [address] VITAMIN D,25 HYDROXY Collected: 03/14/2018 Status: F Source: [place] 11:54 AM REPOSITORY Order Comment: DR MIX ORDERED CBC PTH RENAL ONLY TYPE CODE TESTS RESULT OUT OF REFERENCE UNITS RANGE LAB L506.1000 29.95-100.01 ng/mL Low Vitamin D 29.6 25-OH Result Comment: Vitamin D 25(OH) Status Range Deficiency <20 ng/mL (50nmol/L) Insuffciency 20 - 30 ng/mL (50 - 75 nmol/L) Sufficiency 30 - 100 ng/mL (75 - 250 nmol/L) Toxicity >100 ng/mL (>250 nmol/L) Performed By: #### L506.1000 #### [facility] [address] [place], [address] COMPREHENSIVE METABOLIC Collected: 03/14/2018 Status: F Source: [place] PROFIL 11:[facility] Order Comment: DR MIX ORDERED CBC PTH RENAL ONLY TYPE CODE TESTS RESULT OUT OF RANGE REFERENCE UNITS LAB L501.0100 74-106 mg/dL High GLU 207 Result Comment: Glucose result greater than or equal to 200 mg/dL suggests DIABETES MELLITUS per A.D.A. criteria. Please note revised GLUCOSE reference range effective 2017. LAB L501.1000 7-18 mg/dL High BUN 53 LAB L501.1100 0.70-1.30 mg/dL High CREAT,SERUM 3.99 Result Comment: The validity of the calculated GFR AND GFRAA in patients over 70 years has not been determined. Clinical correlation is essential. LAB L501.1110 >60 mL/min Low EST GFR 16 Result Comment: Non- GFR Calc LAB L501.1115 >60 mL/min Low EST GFR - AA 19 Result Comment: GFR Calc LAB L501.1300 10-20 RATIO Normal BUN/CRE 13.3 LAB L501.1500 6.4-8.2 g/dL T Normal PROT 7.0 LAB L501.1800 3.2-5.0 g/dL Low ALB 3.0 LAB L501.1950 2.2-4.2 g/dL Normal GLOB 4.0 LAB L501.2000 0.9-2.4 RATIO Low A/G 0.8 LAB L501.2200 8.5-10.1 mg/dL Low CA 8.1 LAB L501.4100 15-37 U/L Low AST 14 LAB L501.4305 45-117 U/L Normal ALK P 66 LAB L501.4405 16-61 U/L Normal ALT 17 LAB L501.4600 0.20-1.00 mg/dL T Normal BILI 0.20 LAB L501.5300 136-145 mmol/L NA Normal 139 LAB L501.5600 3.5-5.1 mmol/L K Normal 4.7 LAB L501.5900 98-107 mmol/L High CL 108 LAB L501.6100 21.0-32.0 mmol/L Low CO2 18.0 LAB L501.6200 5-15 Normal GAP 13 Performed By: #### L500.4050, L501.2300, L501.9520, L501.9910 #### [facility] [address] [place], [address] PHOSPHORUS Collected: 03/14/2018 Status: F Source: [place] 11:54 AM REPOSITORY Order Comment: DR MIX ORDERED CBC PTH RENAL ONLY TYPE CODE TESTS RESULT OUT OF RANGE REFERENCE UNITS LAB L501.2300 2.5-4.9 mg/dL Normal PHOS 3.9 Performed By: #### L500.4050, L501.2300, L501.9520, L501.9910 #### [facility] [address] [place], [address] THYROID STIM HORMONE Collected: 03/14/2018 Status: F Source: [place] (TSH) 11:54 AM REPOSITORY Order Comment: DR MIX ORDERED CBC PTH RENAL ONLY TYPE CODE TESTS RESULT OUT OF RANGE REFERENCE UNITS LAB L501.9520 0.358-3.74 uIU/mL High TSH 4.00 Performed By: #### L500.4050, L501.2300, L501.9520, L501.9910 #### [facility] [address] [place], [address] PSA,TOTAL - ANNUAL Collected: 03/14/2018 Status: F Source: [place] SCREEN 11:54 AM REPOSITORY Order Comment: DR MIX ORDERED CBC PTH RENAL ONLY TYPE CODE TESTS RESULT OUT OF RANGE REFERENCE UNITS LAB L501.9910 0.00-4.00 ng/mL Normal PSA,TOT 0.77 SCREEN Result Comment: This test was performed using the TPSA assay method for the [employer] chemistry system. Values obtained with different assay methods cannot be used interchangably. When changing PSA assays in the course of monitoring a patient, additional sequential testing should be carried out to confirm baseline values. Performed By: #### L500.4050, L501.2300, L501.9520, L501.9910 #### [facility] [address] [place], [address] ONCOLOGY VISIT REPORT Observed: 03/10/2018 Status: F Source: [place] 12:23 PM REPOSITORY [facility] [address] 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 His past medical history is notable for diabetes for over 20 years duration complicated with nephropathy and hypertension. He was started on oral iron supplement with no significant improvement in his blood counts. He is unaware of any external bleeding and had negative EGD and colonoscopy in 2018. His stools turned black only after he started taking oral iron. He has no first-degree relatives with malignancies. Though he is of [place] ancestry he himself has never traveled to [facility] and to his knowledge never exposed or suffered from malaria. His anemia slowly progressed and he started erythrocyte stimulating agent therapy September 2017 Treatment: Procrit October 08, 2017- - Past Medical/Social History Social History Social History: No changes Smoking Status Former smoker Review of Systems Constitutional:: Reports: - - Able to do ADLs independently. Denies: Fever, Sweats, Weight loss, Appetite change, Chills Cardiovascular:: Reports: Dyspnea on exertion - When I overexert myself. Denies: Chest pain, Palpitations, Orthopnea, PND, Shortness of breath Respiratory: Reports: Shortness of breath upon exertion. Denies: Cough, Hemoptysis, Shortness of Breath, Wheezing Gastrointestinal:: Denies: Abdominal pain, Nausea, Vomiting, Diarrhea, Constipation, Hematochezia Genitourinary: Denies: Dysuria, Hematuria, 15, Flank pain Musculoskeletal:: Denies: Back pain, Myalgia, Arthralgia Skin: Denies: Rash, Skin Changes, Wounds Neurological:: Denies: Headache, Dizziness, Visual changes, Tinnitus, Hearing loss Psychiatric: Denies: Anxiety, Depression, Homicidal Ideations, Suicidal Ideations Vital Signs Height 5 ft 8 in Weight: 96.978 kg Weight in Pounds 213.8 lbs Pulse Ox 98 - Physical Exam General: Alert, Oriented x3, No apparent distress HEENT: Atraumatic, PERRLA, EOMI, Normocephalic Oropharynx:: Dry mucosa Neck:: Supple, Trachea midline. Negative for: JVD, bilateral Cardiac:: Regular rate, Regular rhythm, Normal S1, Normal S2. Negative for: Murmur Lungs: Clear to auscultation, Excusion symmetrical. Negative for: Rhonchi, Wheezes Extremities:: Negative for: Cyanosis, Edema Laboratory Data: Laboratory Tests WBC 7.9 (4.4-11.0) K/mm3 RBC 4.33 L (4.6-6.2) M/mm3 Hgb 11.0 L (13.0-16.5) g/dl Assessment and Plan 72-year-old gentleman with a slowly progressively worsening chronic anemia, symptomatic, most consistent with anemia of chronic kidney disease. His iron studies do not show any evidence of iron deficiency on oral iron supplementation. His H AND H did improve to target (hemoglobin 10-12 g per DL) consistent with a response to treatment. Plan: #1 continue oral iron supplementation 1 tablet daily. #2 Procrit Dose change to 20,000 units and increase the interval to every 3 weeks. #3 Iron profile recheck March 2018 Impression and plan discussed. Medications: Prescriptions This Visit Medication Instructions Recorded Amlodipine [Norvasc] 10 mg PO DAILY 06/23/17 Atorvastatin Calcium [Lipitor] 40 mg PO QHS 06/23/17 Calcitriol 5 mcg PO DAILY 06/23/17 Primary Care Provider: Sy Sharma Referring Provider: Sy Sharma 03/10/18 1223 <Electronically signed by Shania Hanks MD> Date Shania Hanks MD Cosigner Signature: Date (if applicable) CC: CBC W/DIFF, AUTOMATED Collected: 03/10/2018 Status: F Source: [place] 11:23 AM REPOSITORY Order Comment: Reason for Laboratory Test . TYPE CODE TESTS RESULT OUT OF RANGE REFERENCE UNITS LAB L100.1000 4.4-11.0 K/mm3 Normal WBC 7.9 LAB L100.1200 4.6-6.2 M/mm3 Low RBC 4.33 LAB L100.1300 13.0-16.5 g/dl Low HGB 11.0 LAB L100.1400 40-54 % Low HCT 33.8 LAB L100.1500 80-94 fL Low MCV 78.1 LAB L100.1600 27.0-32.0 pg Low MCH 25.4 LAB L100.1700 32-36 g/gl Normal MCHC 32.5 LAB L100.1810 11.6-14.6 % High RDW CV 14.9 LAB L100.1820 35.1-43.9 fl Normal RDW SD 42.6 LAB L100.1900 150-450 K/mm3 Normal PLT 185 LAB L100.2000 6.2-12.0 fl Normal MPV 10.4 LAB L100.2100 47-70 % Normal NEUT% 58.1 LAB L100.2200 19-41 % Normal LY% 25.5 LAB L100.2300 0-10 % Normal MONO% 6.9 LAB L100.2400 0-5 % High EO% 9.1 LAB L100.2500 0-1 % Normal BASO% 0.3 LAB L100.2550 0.0-0.9 % Normal IM GRAN % 0.100 Result Comment: IG% - Immature Granulocytes (promyelocytes, myelocytes and metamyelocytes) > 1% indicates that a LEFT SHIFT is Present. LAB L100.2620 2.0-7.7 X10 3/uL Normal Absolute Neut 4.6 LAB L100.2720 0.83-4.51 X10 3/ul Normal Absolute Lymph 2.02 Performed By: #### L100.0100 #### [facility] [address] [place], [address] CNCO Observed: 02/23/2018 Status: COMPLETED Source: [place] 12:00 AM [facility] REPOSITORY Letter Text ONCOLOGY VISIT REPORT Observed: 02/17/2018 Status: F Source: [place] 3:10 PM REPOSITORY [facility] [address] [place] [address] OFFICE VISIT Date of Service: 02/17/18 1503 MR#: [id number] Acct: [id number] Name: JIMENEZ GANDARA Rep #: [id number] : 1945 From: Shania Hanks MD Age/Sex: 72/M Location: OMD Status: Signed - Problem List (1) Anemia of chronic renal failure, stage 4 (severe) Status: Chronic - History of Present Illness 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 His past medical history is notable for diabetes for over 20 years duration complicated with nephropathy and hypertension. He was started on oral iron supplement with no significant improvement in his blood counts. He is unaware of any external bleeding and had negative EGD and colonoscopy in 2018. His stools turned black only after he started taking oral iron. He has no first-degree relatives with malignancies. Though he is of [place] ancestry he himself has never traveled to [facility] and to his knowledge never exposed or suffered from malaria. His anemia slowly progressed and he started erythrocyte stimulating agent therapy September 2017 Treatment: Procrit October 08, 2017- - Past Medical/Social History Social History Social History: No changes Smoking Status Former smoker Review of Systems Constitutional:: Reports: Fatigue - On exertion, - - Able to do ADL independently, I wish I could have more energy. Denies: Fever, Sweats, Weight loss, Appetite change, Chills Cardiovascular:: Denies: Chest pain, Palpitations, Dyspnea on exertion, Orthopnea, PND, Shortness of breath Respiratory: Denies: Cough, Hemoptysis, Shortness of Breath, Wheezing Gastrointestinal:: Denies: Abdominal pain, Nausea, Vomiting, Diarrhea, Constipation, Hematochezia Genitourinary: Denies: Dysuria, Hematuria, 15, Flank pain Musculoskeletal:: Denies: Back pain, Myalgia, Arthralgia Skin: Denies: Rash, Skin Changes, Wounds Neurological:: Denies: Headache, Dizziness, Visual changes, Tinnitus, Hearing loss Psychiatric: Denies: Anxiety, Depression, Homicidal Ideations, Suicidal Ideations Vital Signs Height 5 ft 8 in Weight: 97.069 kg Weight in Pounds 214.0 lbs Pulse Ox 100 - Physical Exam General: Alert, Oriented x3, No apparent distress HEENT: Atraumatic, PERRLA, EOMI, Normocephalic Oropharynx:: Dry mucosa Neck:: Supple, Trachea midline. Negative for: JVD, bilateral Cardiac:: Regular rate, Regular rhythm, Normal S1, Normal S2. Negative for: Murmur Lungs: Clear to auscultation, Excusion symmetrical. Negative for: Rhonchi, Wheezes Extremities:: Negative for: Cyanosis, Edema Neurological: Neuro grossly intact Skin:: Negative for: Lesions, Rash, Petechiae, Ecchymosis Psychiatric:: Appropriate affect, Euthymic Laboratory Data: Laboratory Tests WBC 7.2 (4.4-11.0) K/mm3 RBC 4.51 L (4.6-6.2) M/mm3 Hgb 11.5 L (13.0-16.5) g/dl Assessment and Plan 72-year-old gentleman with a slowly progressively worsening chronic anemia, symptomatic, most consistent with anemia of chronic kidney disease. His iron studies do not show any evidence of iron deficiency on oral iron supplementation. His H AND H did improve to target (hemoglobin 10-12 g per DL) consistent with a response to treatment. Plan: #1 continue oral iron supplementation 1 tablet daily. #2 Procrit subcu every 2 weeks reassess in 2 weeks. Procrit dose to be tailored to target hemoglobin. Dose reduction to 18,000 units this visit. Impression and plan discussed. Medications: Prescriptions This Visit Medication Instructions Recorded Amlodipine [Norvasc] 10 mg PO DAILY 06/23/17 Atorvastatin Calcium [Lipitor] 40 mg PO QHS 06/23/17 Calcitriol 5 mcg PO DAILY 06/23/17 Primary Care Provider: Sy Sharma Referring Provider: Sy Sharma 02/17/18 3410 <Electronically signed by Shania Hanks MD> Date Shania Hanks MD Cosigner Signature: Date (if applicable) CC: CBC W/DIFF, AUTOMATED Collected: 02/17/2018 Status: F Source: RENEE 2:33 PM REPOSITORY Order Comment: Reason for Laboratory Test . TYPE CODE TESTS RESULT OUT OF RANGE REFERENCE UNITS LAB L100.1000 4.4-11.0 K/mm3 Normal WBC 7.2 LAB L100.1200 4.6-6.2 M/mm3 Low RBC 4.51 LAB L100.1300 13.0-16.5 g/dl Low HGB 11.5 LAB L100.1400 40-54 % Low HCT 35.5 LAB L100.1500 80-94 fL Low MCV 78.7 LAB L100.1600 27.0-32.0 pg Low MCH 25.5 LAB L100.1700 32-36 g/gl Normal MCHC 32.4 LAB L100.1810 11.6-14.6 % Normal RDW CV 14.5 LAB L100.1820 35.1-43.9 fl Normal RDW SD 41.3 LAB L100.1900 150-450 K/mm3 Normal PLT 159 LAB L100.2000 6.2-12.0 fl Normal MPV 10.2 LAB L100.2100 47-70 % Normal NEUT% 56.3 LAB L100.2200 19-41 % Normal LY% 25.6 LAB L100.2300 0-10 % Normal MONO% 6.8 LAB L100.2400 0-5 % High EO% 10.8 LAB L100.2500 0-1 % Normal BASO% 0.4 LAB L100.2550 0.0-0.9 % Normal IM GRAN % 0.100 Result Comment: IG% - Immature Granulocytes (promyelocytes, myelocytes and metamyelocytes) > 1% indicates that a LEFT SHIFT is Present. LAB L100.2620 2.0-7.7 X10 3/uL Normal Absolute Neut 4.0 LAB L100.2720 0.83-4.51 X10 3/ul Normal Absolute Lymph 1.83 Performed By: #### L100.0100 #### [facility] [address] [place], [place], [address] PROGRESS Observed: 01/31/2018 Status: COMPLETED Source: RIO 1:01 PM [facility] REPOSITORY HNO ID: [id number] Author: Melissa Gan LPN Service: (none) Author Type: (none) Type: Progress Notes Filed: 01/31/2018 1:02 PM Note Text: Patient presents for Twinrx vaccine. Denies any problems at this time. Tolerated injection well. Melissa Gan LPN CNNURSE Observed: 01/31/2018 Status: COMPLETED Source: RIO 1:00 PM [facility] REPOSITORY Nurse Visit (FAMPWS) JIMENEZ GANDARA ([id number]) 1945 M [facility] Date Time Provider Department 01/31/18 1:00 PM [place] [facility] your visit today, we recorded the following information about you: Melissa Gan LPN 01/31/2018 1:02 PM Signed Patient presents for Twinrx vaccine. Denies any problems at this time. Tolerated injection well. Melissa Gan LPN Referring Provider: NANCY OLGUIN [[id number]] Allergies As of Date: 01/31/2018 Noted Allergy Reaction DUST 12/11/2004 Date Reviewed: 07/22/2017 Reviewed by: Samm (Ex Phys) Dennis - Fully Assessed Reason for Visit: Imm/Inj [58] Primary Visit Diagnosis:Need for vaccination with Twinrix [Z23] Prescriptions as of 01/31/2018 Sig: AMLODIPINE 5 MG-BENAZEPRIL 10* Take 1 capsule by mouth once * LOSARTAN 100 MG TABLET Take 100 mg by mouth once jeniffer* CARVEDILOL 12.5 MG TABLET Take 12.5 mg by mouth twice d* DULAGLUTIDE 1.5 MG/0.5 ML SUB* Inject subcutaneously. one ti* LINAGLIPTIN 5 MG TABLET Take by mouth once daily. CALCITRIOL ORAL Take 0.5 mg by mouth once jeniffer* VITAMIN D (WITH CALCIUM) ORAL Take 1.25 mg by mouth once ev* FERROUS SULFATE 325 MG (65 MG* Take 325 mg by mouth daily wi* ATORVASTATIN 40 MG TABLET Take 1 tablet by mouth daily * Problem List As Of Date 01/31/2018 Noted Resolved Controlled type 2 diabetes mellitus without com*INVALID FOR* ALLERGIC RHINITIS NOS [J30.9] INVALID FOR* Mixed hyperlipidemia [E78.2] INVALID FOR* Obesity due to excess calories with serious com*INVALID FOR* Bladder Neck Obstruction [N32.0] INVALID FOR* BPH w Urinary Obs/LUTS [N40.1] INVALID FOR* Impotence of Organic Origin [N52.9] INVALID FOR* Diabetes Mellitus [E11.9] INVALID FOR* Incontinence of urine [R32] INVALID FOR* Essential hypertension [I10] INVALID FOR* Pre-transplant evaluation for ESRD (end stage r*INVALID FOR* Secondary hypertension [I15.9] INVALID FOR* Encounter Status:Closed by MELISSA GAN LPN on 01/31/18 ONCOLOGY VISIT REPORT Observed: 01/27/2018 Status: F Source: QUINNESEC 2:47 PM REPOSITORY [facility] [address] [place] [address] OFFICE VISIT Date of Service: 01/27/18 1421 MR#: [id number] Acct: [id number] Name: JIMENEZ GANDARA Rep #: [id number] : 1945 From: Shania Hanks MD Age/Sex: 72/M Location: OMD Status: Signed - Problem List (1) Anemia of chronic renal failure, stage 4 (severe) Status: Chronic - Date of Service Date of Service:: 01/27/18 - Chief Complaint Anemia - History of Present Illness 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 His past medical history is notable for diabetes for over 20 years duration complicated with nephropathy and hypertension. He was started on oral iron supplement with no significant improvement in his blood counts. He is unaware of any external bleeding and had negative EGD and colonoscopy in 2018. His stools turned black only after he started taking oral iron. He has no first-degree relatives with malignancies. Though he is of [place] ancestry he himself has never traveled to [facility] and to his knowledge never exposed or suffered from malaria. His anemia slowly progressed and he started erythrocyte stimulating agent therapy September 2017 Treatment: Procrit October 08, 2017- - Past Medical/Social History Social History Social History: No changes Smoking Status Former smoker Review of Systems Constitutional:: Reports: - - I feel better since I started the shots. Denies: Fever, Sweats, Weight loss, Appetite change, Chills Cardiovascular:: Denies: Chest pain, Palpitations, Dyspnea on exertion, Orthopnea, PND, Shortness of breath Respiratory: Denies: Cough, Hemoptysis, Shortness of Breath, Wheezing Musculoskeletal:: Denies: Back pain, Myalgia, Arthralgia Skin: Denies: Wounds Neurological:: Denies: Headache, Dizziness, Visual changes, Tinnitus, Hearing loss Vital Signs Height 5 ft 8 in Weight: 97.159 kg Weight in Pounds 214.2 lbs Pulse Ox 98 - Physical Exam General: Alert, Oriented x3, No apparent distress HEENT: Atraumatic, PERRLA, EOMI, Normocephalic Oropharynx:: Dry mucosa Neck:: Supple, Trachea midline. Negative for: JVD, bilateral Cardiac:: Regular rate, Regular rhythm, Normal S1, Normal S2. Negative for: Murmur Lungs: Clear to auscultation, Excusion symmetrical. Negative for: Rhonchi, Wheezes Extremities:: Negative for: Cyanosis, Edema Neurological: Neuro grossly intact Skin:: Negative for: Lesions, Rash, Petechiae, Ecchymosis Psychiatric:: Appropriate affect, Euthymic Lymphatics:: Negative for: Cervical lymphadenopathy, Supraclavicular lymphadenopathy Laboratory Data: Laboratory Tests Hgb 9.9 L 9.6 L 8.9 L Hgb 9.5 L 10.6 L 10.3 L Hgb 10.1 L 10.5 L 10.8 L Hgb 10.6 L 11.6 L 11.2 L Hgb 11.3 L Assessment and Plan 72-year-old gentleman with a slowly progressively worsening chronic anemia, symptomatic, most consistent with anemia of chronic kidney disease. His iron studies do not show any evidence of iron deficiency on oral iron supplementation. His H AND H did improve to target (hemoglobin 10-12 g per DL) consistent with a response to treatment. Plan: #1 continue oral iron supplementation 1 tablet daily. #2 Procrit subcu every 2 weeks reassess in 2 weeks. Procrit dose to be tailored to target hemoglobin. Impression and plan discussed. Medications: Prescriptions This Visit Medication Instructions Recorded Amlodipine [Norvasc] 10 mg PO DAILY 06/23/17 Atorvastatin Calcium [Lipitor] 40 mg PO QHS 06/23/17 Calcitriol 5 mcg PO DAILY 06/23/17 Primary Care Provider: Sy Sharma Referring Provider: Sy Sharma 01/27/18 9867 <Electronically signed by Shania Hanks MD> Date Shania Hanks MD Cosigner Signature: Date (if applicable) CC: CBC W/DIFF, AUTOMATED Collected: 01/27/2018 Status: F Source: RENEE 2:12 PM REPOSITORY Order Comment: Reason for Laboratory Test . TYPE CODE TESTS RESULT OUT OF RANGE REFERENCE UNITS LAB L100.1000 4.4-11.0 K/mm3 Normal WBC 6.9 LAB L100.1200 4.6-6.2 M/mm3 Low RBC 4.39 LAB L100.1300 13.0-16.5 g/dl Low HGB 11.3 LAB L100.1400 40-54 % Low HCT 35.0 LAB L100.1500 80-94 fL Low MCV 79.7 LAB L100.1600 27.0-32.0 pg Low MCH 25.7 LAB L100.1700 32-36 g/gl Normal MCHC 32.3 LAB L100.1810 11.6-14.6 % Normal RDW CV 13.9 LAB L100.1820 35.1-43.9 fl Normal RDW SD 40.3 LAB L100.1900 150-450 K/mm3 Normal PLT 156 LAB L100.2000 6.2-12.0 fl Normal MPV 11.8 LAB L100.2100 47-70 % Normal NEUT% 61.8 LAB L100.2200 19-41 % Normal LY% 25.1 LAB L100.2300 0-10 % Normal MONO% 4.5 LAB L100.2400 0-5 % High EO% 8.2 LAB L100.2500 0-1 % Normal BASO% 0.4 LAB L100.2550 0.0-0.9 % Normal IM GRAN % 0.000 Result Comment: IG% - Immature Granulocytes (promyelocytes, myelocytes and metamyelocytes) > 1% indicates that a LEFT SHIFT is Present. LAB L100.2620 2.0-7.7 X10 3/uL Normal Absolute Neut 4.3 LAB L100.2720 0.83-4.51 X10 3/ul Normal Absolute Lymph 1.74 LAB L100.5500 ADEQ Normal PLT EST A LAB L100.7000 NORM C AND C NORMAL Normal RED CELL MORPH NORM C+C Performed By: #### L100.0100 #### [facility] [address] [place], [place], [id number] CBC-COMPLETE BLOOD CNT Collected: 01/18/2018 Status: F Source: QUINNESEC NO DIFF 10:49 AM REPOSITORY TYPE CODE TESTS RESULT OUT OF RANGE REFERENCE UNITS LAB L100.1000 4.4-11.0 K/mm3 Normal WBC 7.9 LAB L100.1200 4.6-6.2 M/mm3 Low RBC 4.31 LAB L100.1300 13.0-16.5 g/dl Low HGB 11.2 LAB L100.1400 40-54 % Low HCT 34.6 LAB L100.1500 80-94 fL Normal MCV 80.3 LAB L100.1600 27.0-32.0 pg Low MCH 26.0 LAB L100.1700 32-36 g/gl Normal MCHC 32.4 LAB L100.1810 11.6-14.6 % Normal RDW CV 14.2 LAB L100.1820 35.1-43.9 fl Normal RDW SD 40.9 LAB L100.1900 150-450 K/mm3 Normal PLT 225 LAB L100.2000 6.2-12.0 fl Normal MPV 10.6 Performed By: #### L100.0500 #### [facility] [address] [place], [place], [id number] RENAL PROFILE Collected: 01/18/2018 Status: F Source: RENEE 10:49 AM REPOSITORY TYPE CODE TESTS RESULT OUT OF RANGE REFERENCE UNITS LAB L501.0100 74-106 mg/dL High GLU 232 Result Comment: Glucose result greater than or equal to 200 mg/dL suggests DIABETES MELLITUS per A.D.A. criteria. Please note revised GLUCOSE reference range effective 2017. LAB L501.1000 7-18 mg/dL High BUN 47 LAB L501.1100 0.70-1.30 mg/dL High CREAT,SERUM 3.76 Result Comment: The validity of the calculated GFR AND GFRAA in patients over 70 years has not been determined. Clinical correlation is essential. LAB L501.1110 >60 mL/min Low EST GFR 17 Result Comment: Non- GFR Calc LAB L501.1115 >60 mL/min Low EST GFR - AA 21 Result Comment: GFR Calc LAB L501.1300 10-20 RATIO Normal BUN/CRE 12.5 LAB L501.1800 3.2-5.0 g/dL Low ALB 3.0 LAB L501.2200 8.5-10.1 mg/dL Low CA 8.1 LAB L501.2300 2.5-4.9 mg/dL Normal PHOS 4.1 LAB L501.5300 136-145 mmol/L NA Normal 141 LAB L501.5600 3.5-5.1 mmol/L High K 5.3 LAB L501.5900 98-107 mmol/L High CL 113 LAB L501.6100 21.0-32.0 mmol/L Low CO2 19.0 Performed By: #### L500.3600 #### [facility] [address] [place], [place], [address] PTHIN Collected: 01/18/2018 Status: F Source: RENEE 10:49 AM REPOSITORY TYPE CODE TESTS RESULT OUT OF RANGE REFERENCE UNITS LAB L509.1000 18.4-80.1 pg/mL High PTHIN 269.3 Performed By: #### L509.1000 #### [facility] [address] 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 His past medical history is notable for diabetes for over 20 years duration complicated with nephropathy and hypertension. He was started on oral iron supplement with no significant improvement in his blood counts. He is unaware of any external bleeding and had negative EGD and colonoscopy in 2018. His stools turned black only after he started taking oral iron. He has no first-degree relatives with malignancies. Though he is of [place] ancestry he himself has never traveled to [facility] and to his knowledge never exposed or suffered from malaria. His anemia slowly progressed and he started erythrocyte stimulating agent therapy September 2017 Treatment: Procrit October 08, 2017- - Past Medical/Social History Social History Social History: No changes Smoking Status Former smoker Review of Systems Constitutional:: Reports: - - Able to do ADL independently. Denies: Fever, Sweats, Weight loss, Appetite change, Chills Cardiovascular:: Denies: Chest pain, Palpitations, Dyspnea on exertion, Orthopnea, PND, Shortness of breath Respiratory: Denies: Cough, Hemoptysis, Shortness of Breath, Wheezing Gastrointestinal:: Denies: Abdominal pain, Nausea, Vomiting, Diarrhea, Constipation, Hematochezia Genitourinary: Denies: Dysuria, Hematuria, 15, Flank pain Musculoskeletal:: Denies: Back pain, Myalgia, Arthralgia Skin: Denies: Rash, Skin Changes, Wounds Neurological:: Denies: Headache, Dizziness, Visual changes, Tinnitus, Hearing loss Psychiatric: Denies: Anxiety, Depression, Homicidal Ideations, Suicidal Ideations Vital Signs Height 5 ft 8 in Weight: 97.159 kg Weight in Pounds 214.2 lbs Pulse Ox 98 - Physical Exam General: Alert, Oriented x3, No apparent distress HEENT: Atraumatic, PERRLA, EOMI, Normocephalic Oropharynx:: Dry mucosa Neck:: Supple, Trachea midline. Negative for: JVD, bilateral Cardiac:: Regular rate, Regular rhythm, Normal S1, Normal S2. Negative for: Murmur Lungs: Clear to auscultation, Excusion symmetrical. Negative for: Rhonchi, Wheezes Extremities:: Negative for: Cyanosis, Edema Neurological: Neuro grossly intact Laboratory Data: Laboratory Tests WBC 6.8 (4.4-11.0) K/mm3 RBC 4.36 L (4.6-6.2) M/mm3 Hgb 11.6 L (13.0-16.5) g/dl Assessment and Plan 72-year-old gentleman with a slowly progressively worsening chronic anemia, symptomatic, most consistent with anemia of chronic kidney disease. His iron studies do not show any evidence of iron deficiency on oral iron supplementation. His H AND H did improve to target consistent with a response to treatment. Plan: #1 continue oral iron supplementation 1 tablet daily. #2 Procrit 20,000 units subcu every 2 weeks reassess in 2 weeks. Aranesp (4 W intervals) is not on formulary at the present time but an attempt to obtain the drug is being made. Impression and plan discussed. Medications: Prescriptions This Visit Medication Instructions Recorded Amlodipine [Norvasc] 10 mg PO DAILY 06/23/17 Atorvastatin Calcium [Lipitor] 40 mg PO QHS 06/23/17 Calcitriol 5 mcg PO DAILY 06/23/17 Primary Care Provider: Sy Sharma Referring Provider: Sy Sharma 01/06/18 0401 <Electronically signed by Shania Hanks MD> Date Shania Hanks MD Cosigner Signature: Date (if applicable) CC: CBC W/DIFF, AUTOMATED Collected: 01/06/2018 Status: F Source: RENEE 1:01 PM REPOSITORY Order Comment: Reason for Laboratory Test . TYPE CODE TESTS RESULT OUT OF RANGE REFERENCE UNITS LAB L100.1000 4.4-11.0 K/mm3 Normal WBC 6.8 LAB L100.1200 4.6-6.2 M/mm3 Low RBC 4.36 LAB L100.1300 13.0-16.5 g/dl Low HGB 11.6 LAB L100.1400 40-54 % Low HCT 35.3 LAB L100.1500 80-94 fL Normal MCV 81.0 LAB L100.1600 27.0-32.0 pg Low MCH 26.6 LAB L100.1700 32-36 g/gl Normal MCHC 32.9 LAB L100.1810 11.6-14.6 % Normal RDW CV 13.6 LAB L100.1820 35.1-43.9 fl Normal RDW SD 39.2 LAB L100.1900 150-450 K/mm3 Normal PLT 179 LAB L100.2000 6.2-12.0 fl Normal MPV 11.3 LAB L100.2100 47-70 % Normal NEUT% 62.3 LAB L100.2200 19-41 % Normal LY% 22.9 LAB L100.2300 0-10 % Normal MONO% 6.0 LAB L100.2400 0-5 % High EO% 8.3 LAB L100.2500 0-1 % Normal BASO% 0.4 LAB L100.2550 0.0-0.9 % Normal IM GRAN % 0.100 Result Comment: IG% - Immature Granulocytes (promyelocytes, myelocytes and metamyelocytes) > 1% indicates that a LEFT SHIFT is Present. LAB L100.2620 2.0-7.7 X10 3/uL Normal Absolute Neut 4.2 LAB L100.2720 0.83-4.51 X10 3/ul Normal Absolute Lymph 1.55 Performed By: #### L100.0100 #### [facility] [address] [place], [address] CNCO Observed: 01/03/2018 Status: COMPLETED Source: RIO 12:00 AM [facility] REPOSITORY Letter Text Kidney and Pancreas Transplant Program Pre-Transplant Office [address] [facility], [address] [address] , ext. [phone] January 03, 2018 Jimenez Gandara [address] [place] [id number] : 1945 Dear Mr. Gandara, You have been approved for Kidney Transplant at [facility] and have been actively listed on the [employer] ([employer]) national donor kidney waiting list. Please return for annual re-evaluation with a CT or MRI imaging when you return for wait list. Listing Date: 12/31/2017 Communication with the transplant office is very important while you are listed and awaiting transplant surgery. Please contact the transplant office at extension [phone] or [phone] with any of the following: If you are admitted to a hospital If you are prescribed any new medications Changes in your medical condition especially if you?re being treated for infections and/or prescribed antibiotics Changes in contact information including address and phone numbers. It is vital that you can be reached at all times. If you are planning on going out of town Changes in medical insurance including prescription coverage ? please contact Sussy Schulz, Web Knitter, at: extension [phone] or [phone] You will be required to have blood drawn monthly while you are on the waiting list. You can have this drawn at any [facility] lab. If you are on dialysis or do not live locally, you can have this drawn at your dialysis unit or at a local lab. In this case, you will receive a box of kits for the monthly blood work. Please read the kit instructions closely and bring this letter with you to your dialysis unit or lab to ensure that this is completed. It is extremely important to have this done monthly in order to get called for a kidney transplant. When calling our office with questions related to the monthly blood work, please make sure to indicate whether you are coming to a [facility] lab or having it drawn locally. Please carry a list of all medications and doses with you at all times. When you are contacted to come to [facility] for a potential transplant, also bring a 24 hour supply of medication. Please also be aware that although most patients are transplanted when called to the hospital, the transplant may be cancelled due to various reasons. You need to make sure that you have enough medication to travel home in case your transplant does not occur. Periodically, travel arrangements will need to be made to ensure reliable transportation at the time of transplant. If this is deemed necessary, you will be contacted by your visitor services coordinator to further discuss this option. Attached is a letter from the [employer] ([employer]). It describes the services and information offered to patients by [employer] and the Organ Procurement and Transplant Network. Please also review the attached [facility] Trans[facility] [place] Program Coverage Plan Letter. If you need to reach the Kidney Transplant Office or have any questions or concerns, please call extension [phone] or [phone]. Thank you for choosing [facility] for your care. Sincerely, [facility] Kidney Transplant Program [facility] Trans[facility] [place] Program Coverage Plan To our Patients and Family Members, This is to provide you information regarding our plan to provide [id number] medical and surgical coverage for our organ transplant programs. As a premier teaching institution, the [facility] has a team of staff transplant surgeons and physicians, supported by fellows and residents, available 24 hours a day, 7 days a week to provide World Class Care to all of our transplant candidates, recipients and living donors. When not on the premises, at least one doctor is insulation professional for each transplant program and can be reached via cell phone and a central [employer] paging system. Operational integrity, senior quality methods specialist, and standard of care is monitored and evaluated by the Director of the Transplant Center, the Medical and Surgical Directors of each transplant program and the Transplant Iron Miner. If you have any questions or concerns regarding our program coverage plan, please discuss with your physician or visitor services coordinator. Sincerely, Nellie Ewing RN, BSN, CNOR, CCTN, [facility] Transplant Hr Consultant Contact The Transplant Center: [facility], [address] [place], [place] [address] Heart [phone] / [phone] [id number] Heart/Lung [phone] / [id number] Intestinal [phone] / [phone] [id number] Kidney [phone] / [phone] [id number] Kidney/Pancreas [phone] / [phone] [id number] Liver [phone] / [phone] [id number] Lung [phone] / [phone] [id number] Pancreas [phone] / [phone] [id number] CNCO Observed: 01/03/2018 Status: COMPLETED Source: RIO 12:00 AM [facility] REPOSITORY Letter Text Kidney and Pancreas Transplant Pre-transplant Department January 03, 2018 Mary Mix [address] [address] RE: Jimenez Gandara Date Listed: 12/31/[address] Mix: Thank you for referring your patient to the [facility]. We are pleased to inform you that this patient has been activated on the [facility] donor kidney transplant waiting list. We would appreciate your assistance in keeping us up-to-date on any medical changes which may occur during the waiting period. Patients will be re-evaluated for transplantation as needed based upon their current condition. If you have any questions, please feel free to contact the Transplant Office at [phone]. [phone] or [phone]. Sincerely, [facility] Kidney and Pancreas Transplant Program PROGRESS Observed: 12/31/2017 Status: COMPLETED Source: RIO 12:58 PM [facility] REPOSITORY HNO ID: [id number] Author: Farhad Whitmore RN Service: (none) Author Type: (none) Type: Progress Notes Filed: 12/31/2017 12:58 PM Note Text: ABO Verification prior to Listing: Jimenez Gandara'mariel ABO blood type has been verified using source documentation from samples: ? drawn on two separate occasions ? with different collection times ? submitted as separate samples The results of these samples are the same and indicate that the patient's ABO blood type is: A. Transplant Coordinators performing verification: 1. Farhad Whitmore RN 2. Mariusz GUDINON, RN Patient has been added to the [facility] waiting list. Farhad Whitmore RN Pre-Interline Clerk PROGRESS Observed: 12/31/2017 Status: COMPLETED Source: RIO 12:52 PM [facility] REPOSITORY HNO ID: [id number] Author: Farhad Whitmore RN Service: (none) Author Type: (none) Type: Progress Notes Filed: 12/31/2017 12:57 PM Note Text: Rec'd insurance authorization for listing from Eloise Anthony. Patient has kidney transplant authorization from 12/31/17-12/31/18. Reference number [id number] Farhad Whitmore RN RENAL PROFILE Collected: 12/30/2017 Status: F Source: RENEE 2:03 PM REPOSITORY TYPE CODE TESTS RESULT OUT OF RANGE REFERENCE UNITS LAB L501.0100 74-106 mg/dL High GLU 124 Result Comment: Fasting Glucose result from 100 to 125 mg/dL suggests IMPAIRED HOMEOSTASIS per A.D.A. criteria. Please note revised GLUCOSE reference range effective 2017. LAB L501.1000 7-18 mg/dL High BUN 56 LAB L501.1100 0.70-1.30 mg/dL High CREAT,SERUM 3.56 Result Comment: The validity of the calculated GFR AND GFRAA in patients over 70 years has not been determined. Clinical correlation is essential. LAB L501.1110 >60 mL/min Low EST GFR 18 Result Comment: Non- GFR Calc LAB L501.1115 >60 mL/min Low EST GFR - AA 22 Result Comment: GFR Calc LAB L501.1300 10-20 RATIO Normal BUN/CRE 15.7 LAB L501.1800 3.2-5.0 g/dL Low ALB 3.0 LAB L501.2200 8.5-10.1 mg/dL Low CA 8.4 LAB L501.2300 2.5-4.9 mg/dL Normal PHOS 4.0 LAB L501.5300 136-145 mmol/L NA Normal 137 Result Comment: Critical Result(s) Called at: 17:26:45 12/30/2017 by: Maral DUMONT LAB L501.5600 3.5-5.1 mmol/L High alert K 6.0 Result Comment: Moderate Hemolysis, Result may be falsely increased. LAB L501.5900 98-107 mmol/L High CL 110 LAB L501.6100 21.0-32.0 mmol/L Low CO2 19.0 Performed By: #### L500.3600 #### [facility] [address] [place], [address] PROGRESS Observed: 12/24/2017 Status: COMPLETED Source: RIO 12:57 PM [facility] REPOSITORY HNO ID: [id number] Author: Farhad Whitmore RN Service: (none) Author Type: (none) Type: Progress Notes Filed: 12/24/2017 12:59 PM Note Text: Informed Jimenez Gandara that the Kidney/Pancreas Selection Committee approved them to be listed for a kidney transplant. Informed patient that potential donors can begin work-up once placed on the list. Gave them the Living Donor Office online web address and office phone number. Reminded Jimenez Gandara that if uncomfortable with donor's history, etc, they may say No without penalty. Reviewed choices that were chosen on the KDPI form with patient and updated below as needed. Types of donors patient is willing to consider: Donors that from Cardiac (DCD) Yes Hepatitis C Donors No Hepatitis B Core Antibody Donors No High Risk Donors Yes KDPI score > 85% No(patient verbally stated today I do not want the offers for KDPI>85%. Discussed monthly serum samples, why they are needed and how to get them drawn. I confirmed all phone numbers with the patient. Additional Information Additional testing needed: Additional consults needed: Special instructions for listing: Labs will be drawn at : Kidney/Pancreas and Pancreas Alone Candidates ONLY KP or PA Additional Information Insulin Start Date: Amount of Insulin C Peptide level Hgb A1C level: Patient verbalized understanding of all the information that was discussed. Will move forward with the listing process for kidney transplant. Farhad Whitmore RN Pre-Kidney AND Pancreas Interline Clerk [facility] CBC W/DIFF, AUTOMATED Collected: 12/22/2017 Status: F Source: QU[place] 11:46 AM REPOSITORY TYPE CODE TESTS RESULT OUT OF RANGE REFERENCE UNITS LAB L100.1000 4.4-11.0 K/mm3 Normal WBC 7.6 LAB L100.1200 4.6-6.2 M/mm3 Low RBC 3.99 LAB L100.1300 13.0-16.5 g/dl Low HGB 10.6 LAB L100.1400 40-54 % Low HCT 32.5 LAB L100.1500 80-94 fL Normal MCV 81.5 LAB L100.1600 27.0-32.0 pg Low MCH 26.6 LAB L100.1700 32-36 g/gl Normal MCHC 32.6 LAB L100.1810 11.6-14.6 % Normal RDW CV 13.9 LAB L100.1820 35.1-43.9 fl Normal RDW SD 39.7 LAB L100.1900 150-450 K/mm3 Normal PLT 211 LAB L100.2000 6.2-12.0 fl Normal MPV 11.1 LAB L100.2100 47-70 % Normal NEUT% 60.2 LAB L100.2200 19-41 % Normal LY% 22.0 LAB L100.2300 0-10 % Normal MONO% 6.9 LAB L100.2400 0-5 % High EO% 10.1 LAB L100.2500 0-1 % Normal BASO% 0.4 LAB L100.2550 0.0-0.9 % Normal IM GRAN % 0.400 Result Comment: IG% - Immature Granulocytes (promyelocytes, myelocytes and metamyelocytes) > 1% indicates that a LEFT SHIFT is Present. LAB L100.2620 2.0-7.7 X10 3/uL Normal Absolute Neut 4.6 LAB L100.2720 0.83-4.51 X10 3/ul Normal Absolute Lymph 1.66 Performed By: #### L100.0100 #### [facility] [address] [place], [place], [address] COMPREHENSIVE METABOLIC Collected: 12/22/2017 Status: F Source: [facility] 11:46 AM REPOSITORY TYPE CODE TESTS RESULT OUT OF RANGE REFERENCE UNITS LAB L501.0100 74-106 mg/dL High GLU 200 Result Comment: Glucose result greater than or equal to 200 mg/dL suggests DIABETES MELLITUS per A.D.A. criteria. Please note revised GLUCOSE reference range effective 2017. LAB L501.1000 7-18 mg/dL High BUN 50 LAB L501.1100 0.70-1.30 mg/dL High CREAT,SERUM 3.74 Result Comment: The validity of the calculated GFR AND GFRAA in patients over 70 years has not been determined. Clinical correlation is essential. LAB L501.1110 >60 mL/min Low EST GFR 17 Result Comment: Non- GFR Calc LAB L501.1115 >60 mL/min Low EST GFR - AA 21 Result Comment: GFR Calc LAB L501.1300 10-20 RATIO Normal BUN/CRE 13.4 LAB L501.1500 6.4-8.2 g/dL T Normal PROT 6.8 LAB L501.1800 3.2-5.0 g/dL Low ALB 2.9 LAB L501.1950 2.2-4.2 g/dL Normal GLOB 3.9 LAB L501.2000 0.9-2.4 RATIO Low A/G 0.7 LAB L501.2200 8.5-10.1 mg/dL Low CA 8.2 LAB L501.4100 15-37 U/L Low AST 11 LAB L501.4305 45-117 U/L Normal ALK P 69 LAB L501.4405 16-61 U/L Normal ALT 21 LAB L501.4600 0.20-1.00 mg/dL T Normal BILI 0.30 LAB L501.5300 136-145 mmol/L NA Normal 138 LAB L501.5600 3.5-5.1 mmol/L High K 5.5 LAB L501.5900 98-107 mmol/L High CL 109 LAB L501.6100 21.0-32.0 mmol/L Low CO2 19.0 LAB L501.6200 5-15 Normal GAP 10 Performed By: #### L500.4050, L501.9520 #### [facility] [address] [place], [address] THYROID STIM HORMONE Collected: 12/22/2017 Status: F Source: RENEE (TSH) 11:46 AM REPOSITORY TYPE CODE TESTS RESULT OUT OF RANGE REFERENCE UNITS LAB L501.9520 0.358-3.74 uIU/mL Normal TSH 2.81 Performed By: #### L500.4050, L501.9520 #### [facility] [address] [place], [address] VITAMIN D,25 HYDROXY Collected: 12/22/2017 Status: F Source: [place] 11:46 AM REPOSITORY TYPE CODE TESTS RESULT OUT OF REFERENCE UNITS RANGE LAB L506.1000 29.95-100.01 ng/mL Low Vitamin D 14.1 25-OH Result Comment: Vitamin D 25(OH) Status Range Deficiency <20 ng/mL (50nmol/L) Insuffciency 20 - 30 ng/mL (50 - 75 nmol/L) Sufficiency 30 - 100 ng/mL (75 - 250 nmol/L) Toxicity >100 ng/mL (>250 nmol/L) Performed By: #### L506.1000 #### [facility] [address] [place], [address] PROGRESS Observed: 12/17/2017 Status: COMPLETED Source: RIO 9:58 AM [facility] REPOSITORY HNO ID: [id number] Author: Haris Ye (Pharmacist) Service: (none) Author Type: Pharmacist Type: Progress Notes Filed: 12/17/2017 9:58 AM Note Text: Pharmacist Pre-Transplant Evaluation Note Jimenez Gandara is a 72 year old male with diabetes AND hypertension. The patient's medication profile was reviewed and there are no identified medication issues that would preclude transplant in this patient. Current Outpatient Rx Medication Sig Dispense Refill - amLODIPine-benazepril (LOTREL) 5-10 mg per capsule Take 1 capsule by mouth once daily. - losartan (COZAAR) 100 mg tablet Take 100 mg by mouth once daily. - carvedilol (COREG) 12.5 mg tablet Take 12.5 mg by mouth twice daily with meals. - dulaglutide (TRULICITY) 1.5 mg/0.5 mL pnij Inject subcutaneously. one time weekly - linagliptin (TRADJENTA) 5 mg tab Take by mouth once daily. - CALCITRIOL ORAL Take 0.5 mg by mouth once daily. - CALCIUM PHOSPHATE DIBAS/VIT D3 (VITAMIN D, WITH CALCIUM, ORAL) Take 1.25 mg by mouth once every month. - ferrous sulfate (FEOSOL) 325 mg (65 mg iron) tablet Take 325 mg by mouth daily with breakfast. - atorvastatin (LIPITOR) 40 mg tablet Take 1 tablet by mouth daily at bedtime. For cholesterol. 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 His past medical history is notable for diabetes for over 20 years duration complicated with nephropathy and hypertension. He was started on oral iron supplement with no significant improvement in his blood counts. He is unaware of any external bleeding and had negative EGD and colonoscopy in 2018. His stools turned black only after he started taking oral iron. He has no first-degree relatives with malignancies. Though he is of [place] ancestry he himself has never traveled to [facility] and to his knowledge never exposed or suffered from malaria. His anemia slowly progressed and he started erythrocyte stimulating agent therapy September 2017 Treatment: Procrit October 08, 2017- - Past Medical/Social History Social History Social History: No changes Smoking Status Former smoker Review of Systems Constitutional:: Denies: Fever, Sweats, Weight loss, Appetite change, Chills Cardiovascular:: Denies: Chest pain, Palpitations, Dyspnea on exertion, Orthopnea, PND, Shortness of breath Respiratory: Denies: Cough, Hemoptysis, Shortness of Breath, Wheezing Neurological:: Denies: Headache, Dizziness, Visual changes, Tinnitus, Hearing loss Vital Signs Height 5 ft 8 in Weight: 98.702 kg Weight in Pounds 217.6 lbs Pulse Ox 98 - Physical Exam General: Alert, Oriented x3, No apparent distress HEENT: Atraumatic, PERRLA, EOMI, Normocephalic Oropharynx:: Dry mucosa Neck:: Supple, Trachea midline. Negative for: JVD, bilateral Cardiac:: Regular rate, Regular rhythm, Normal S1, Normal S2. Negative for: Murmur Lungs: Clear to auscultation, Excusion symmetrical. Negative for: Rhonchi, Wheezes Extremities:: Negative for: Cyanosis, Edema Neurological: Neuro grossly intact Laboratory Data: Laboratory Tests Hgb 9.9 L 9.6 L 8.9 L Hct 30.3 L 26.9 L Hgb 9.5 L 10.6 L 10.3 L Hct 29.6 L 33.7 L 32.3 L Hgb 10.1 L 10.5 L 10.8 L Hct 31.5 L 32.3 L 34.3 L Assessment and Plan 72-year-old gentleman with a slowly progressively worsening chronic anemia, symptomatic, most consistent with anemia of chronic kidney disease. His iron studies do not show any evidence of iron deficiency on oral iron supplementation. His H AND H did improve to target consistent with a response to treatment. Plan: #1 continue oral iron supplementation 1 tablet daily. #2 Procrit 20,000 units subcu every 2 weeks reassess in 2 weeks. Patient wishes to convert to Aranesp every 4 weeks for convenience of less frequent administration. Aranesp is not on formulary at the present time but an attempt to obtain the drug will be made. #3 Follow-up closely with Dr. Sharma for optimum blood pressure control Impression and plan discussed. Medications: Prescriptions This Visit Medication Instructions Recorded Amlodipine [Norvasc] 10 mg PO DAILY 06/23/17 Atorvastatin Calcium [Lipitor] 40 mg PO QHS 06/23/17 Calcitriol 5 mcg PO DAILY 06/23/17 Primary Care Provider: Sy Sharma Referring Provider: Sy Sharma 12/16/17 7937 <Electronically signed by Shania Hanks MD> Date Shania Hanks MD Cosigner Signature: Date (if applicable) CC: CBC W/DIFF, AUTOMATED Collected: 12/16/2017 Status: F Source: RENEE 1:28 PM REPOSITORY Order Comment: Reason for Laboratory Test . TYPE CODE TESTS RESULT OUT OF RANGE REFERENCE UNITS LAB L100.1000 4.4-11.0 K/mm3 Normal WBC 7.3 LAB L100.1200 4.6-6.2 M/mm3 Low RBC 4.21 LAB L100.1300 13.0-16.5 g/dl Low HGB 10.8 LAB L100.1400 40-54 % Low HCT 34.3 LAB L100.1500 80-94 fL Normal MCV 81.5 LAB L100.1600 27.0-32.0 pg Low MCH 25.7 LAB L100.1700 32-36 g/gl Low MCHC 31.5 LAB L100.1810 11.6-14.6 % Normal RDW CV 13.7 LAB L100.1820 35.1-43.9 fl Normal RDW SD 40.9 LAB L100.1900 150-450 K/mm3 Normal PLT 184 LAB L100.2000 6.2-12.0 fl Normal MPV 10.4 LAB L100.2100 47-70 % Normal NEUT% 61.5 LAB L100.2200 19-41 % Normal LY% 22.8 LAB L100.2300 0-10 % Normal MONO% 6.9 LAB L100.2400 0-5 % High EO% 8.4 LAB L100.2500 0-1 % Normal BASO% 0.4 LAB L100.2550 0.0-0.9 % Normal IM GRAN % 0.000 Result Comment: IG% - Immature Granulocytes (promyelocytes, myelocytes and metamyelocytes) > 1% indicates that a LEFT SHIFT is Present. LAB L100.2620 2.0-7.7 X10 3/uL Normal Absolute Neut 4.5 LAB L100.2720 0.83-4.51 X10 3/ul Normal Absolute Lymph 1.66 Performed By: #### L100.0100 #### [facility] [place], [address] PROGRESS Observed: 12/01/2017 Status: COMPLETED Source: RIO 1:47 PM [facility] REPOSITORY [facility] ID: [id number] Author: Farhad Whitmore RN Service: (none) Author Type: (none) Type: Progress Notes Filed: 12/24/2017 1:07 PM Note Text: KIDNEY AND PANCREAS TRANSPLANT PROGRAM SELECTION COMMITTEE MEETING Jimenez Gandara 72 year old Type of Evaluation: Kidney Date of evaluation: 06/28/17 Date of meetin Team Summary: Medical 72 yo male with CKD stage 4- proteinuric, thought 2nd to DM/HTN, DM for 20 years- managed by PO meds + diet- not on insulin. Patient has become more compliant, A1C and BP well controlled now. Lost about 37 pounds intentionally, still with truncal obesity. Has exophytic right renal lesion, may need f/u imaging. Luiz Perez MD Surgical The patient is a 72 year old male potential candidate for kidney transplantation. ? 1.? The Advantages and disadvantages of renal transplantation versus dialysis were reviewed. ? 2.? We discussed the operative procedure and potential complications, particularly in regard to the need for re-operation. I discussed the use of tubes and drains; and addressed issues of? post-operative recovery and the absolute necessity of follow-up. ? 3.? We discussed the need for lifelong immunosuppressive therapy and the risk associated with this treatment. The use of induction and maintenance therapy, and the approach to rejection were outlined. 4.? Discussed the various sources of donor kidneys which included: ?a. LD vs.DD options and wait list ?b. SCD, MACHINE PLASTER MIXER and DCD kidneys ?c. CDC high risk donors d. Pediatric and adult dual transplants ? The patient expresses an understanding of the medical information presented. ? Recommend: ? 1. Routine serology and labs 2. Cardiac testing: No invasive stress testing 3. Screening Abdominal and Pelvic CT scans: WO i.v. contrast 4. Need VCUG: No 5. Colonoscopy update: Yes 6. Avoid blood transfusions. 7. Had some LUTS in the past given tamsulosin, has resolved. ? Brandon Howard MD Social Work The information below is based on Ela Armstrong's evaluation of 06/28/2017: Social Supports: and Children (ages 24, 22, 21 and 19 - two of the children live with patient). Financial Concerns: MMO (through ) and Medicare part A Compliance: Not yet on dialysis at time of assessment. No reason to believe the patient would not be compliant with post transplant regimen. Mental Health: Stable. Substance Abuse: Denies. Quit smoking cigarettes 25 years ago. SIPAT Score: 11 At the time of initial assessment, Jimenez Gandara was found to be a suitable psychosocial candidate for a kidney transplant. Bhavani Malcolm, KEYURA, GEOLOGY PROFESSOR 12/16/2017 Nutrition Patient's nutrition status during pretransplant evaluation demonstrates no contra indications for transplantation. Trish Ayers RD Pharmacy The patient's medication profile was reviewed and there are no identified medication issues that would preclude transplant in this patient. Haris Ye, PharmD Transplant Clinical Pharmacist [facility] [place] Other Consults ID consult 07/22/17 No ID contraindication to listing. Nancy Olguin Summary of Evaluation: Primary disease: DM Advanced CKD, not on dialysis, current GFR: 17 ABO A NEGATIVE PMH PAST MEDICAL HISTORY Diagnosis Date - Allergic rhinitis, cause unspecified Allergic rhinitis - Diabetes mellitus without mention of complication Diabetes mellitus - High cholesterol - Hypertension - Mixed hyperlipidemia Hyperlipidemia Strong cPRA Combined Class I AND II cPRA: 0 Combined Strong Class I AND II cPRA: 0 PSH PAST SURGICAL HISTORY Procedure Laterality Date - OTHER wisdom teeth removal Sensitization Prior transplants- none Blood transfusion-none Medication Considerations Living donors ? Living donors- possible , 4 children Health Maintenance PSA 06/28/17 0.74 Colonoscopy 07/27/17 4 small sessile polyps of the hepatic flexure an mid transverse colon and splenic rosina and rectum. All clinically benign. Cardiac Testing Stress ECHO treadmill 07/22/17 CONCLUSIONS: - Exam indication: Pre-op clearance - Kidney Tx - The exercise stress echo was negative for ischemia at 86 % of MPHR (6.3 METS). Average functional capacity for age and gender. - The left ventricle is normal in size. Left ventricular systolic function is normal. EF = 62 ? 5% (2D biplane) Normal left ventricular diastolic function. - The right ventricle is normal in size. Right ventricular systolic function is normal. - There are no significant valvular abnormalities. - The patient has not had a prior CC echocardiographic exam for comparison. EKG 06/28/17 Diagnosis:SINUS BRADYCARDIA OTHERWISE NORMAL ECG Pulmonary Testing CXR 02/28/17 No evidence for acute cardiopulmonary pathology. Imaging CT ABD/PEL 06/28/17 Right iliac: ??Common iliac artery: Moderate (greater than 50% circumference) atherosclerotic calcification ??External iliac artery: Mild (less than 50% circumferential) atherosclerotic calcification ??Internal iliac artery: Moderate (greater than 50% circumference) atherosclerotic calcification Left iliac: ??Common iliac artery: Moderate (greater than 50% circumference) atherosclerotic calcification ??External iliac artery: Mild (less than 50% circumferential) atherosclerotic calcification ??Internal iliac artery: Moderate (greater than 50% circumference) atherosclerotic calcification US Renal 03/01/17 Impression: 1. Mild increased cortical echogenicity of the bilateral kidneys, which Could reflect long-standing medical renal disease. 2. There are 2 cortical cysts of the right kidneys, as noted. The probable cyst at the midpole is complicated. No right hydronephrosis. 3. Nonobstructing 8 mm stone at the lower pole left kidney. No left hydronephrosis. 4. Unremarkable urinary bladder. Serologies/Lab Considerations Component Latest Ref Rng AND Units 06/28/2017 Hep B Core Ab, Total Negative Negative Hep C Antibody IA Negative Negative Hep B Surface Ag Negative Negative Hep B Surface Ab, Qual Negative Negative CMV IgG Qualitative Negative Positive (A) CMV Antibody, IgG U/mL 1.10 EBV VCA IgG, Qual Negative Positive (A) EBV VCA, IgG AI >8.0 Measles Antibody, IGG Qualitative Negative Positive (A) Measles Antibody, IgG AU/mL >300.0 Syphilis IgG Qualitative Nonreactive Nonreactive Syphilis IgG AI <0.2 V.zoster IgG, Qual Negative Positive (A) Varicella zoster, IgG Index Value >4,000.0 HCV RNA by PCR IU/mL HCV RNA not detected by PCR. HIV 12 Combo (Ag/Ab) Non Reactive Non Reactive Strongyloides IgG, Serum <=0.99 IV 0.56 BMI 32.84 K-Score 80% - Normal activity with effort: some symptoms of disease. COMMITTEE DECISION: The selection criteria have been MET and patient will be placed on the kidney transplant waiting list. Indication(s) for transplantation: Chronic kidney disease, stage IV, with calculated or estimated GFR < 20ml/min. Patient is annual WL. Patient must be seen for WL by 06/10/18 at that time additional imaging (CT or MRI) will be ordered to monitor renal cyst. Members present at committee meeting: Chris Rajan MD Transplant Surgeon, Surgical Director - Pancreas Transplant Program, Joesph Humphreys, PhD, [facility], Maddie Yip RN Pre-visitor services coordinator, RIMA Pat, Social Work, Cody Phelps MD Transplant Investigator Internal Affairs, Kaleb Lugo, Patient Gas Line Installer, Bhavani Malcolm [facility], GEOLOGY PROFESSOR, Emmett Cornell MD Transplant Surgeon, Lucita Barrera RN, Pre-visitor services coordinator, Martina Butler RN, Lead lead clinical research coordinator, Be Caldwell MD, Cardiology, Luiz Perez MD, Transplant Investigator Internal Affairs, RIMA Hanna-S, Social Work, Veronica Hernandez MD Fellow-Bioethics, Christiano Toney MD, Transplant Nephrology Fellow, Zeferino Girard MD ?Transplant Investigator Internal Affairs , Farhad Whitmore RN, Pre-Interline Clerk, Neftaly Tierney MD Transplant Investigator Internal Affairs, Edward Prater CNP, Transplant Nurse Practitioner, Reji Iglesias RN, Pre-Interline Clerk, Carlotta Muhammad CNP, Clinical Nurse Leadership Recruiter, Sheree Mcknight, NORMA Post Interline Clerk, Haris Ye, PharmD, Janette Nicholas MD, Olimpia Masterson RD, Ning Cabezas, Student, and Corinne Doyle, Student. KIDNEY Indications: ? End-stage renal disease patient on dialysis ? Advanced chronic kidney disease, stage V ? Chronic Kidney Disease, stage IV with calculated or estimated GFR <20 ml/min ? Chronic Kidney Disease, stage IV with GFR <30ml/min and indication for other solid organ transplan Relative Contraindications: ? Active, untreated bacterial, fungal, or viral infections. Once treated, patient can be considered. (Patients with HIV or chronic hepatitis infection will be evaluated on an individual basis.) ? Active malignancy, except non-melanoma skin cancer. An acceptable disease free waiting period must have accrued prior to transplantation, usually 2 to 5 years in remission depending on cancer type. ? Recalcitrant medical non-adherence, alcoholism, or substance abuse, or behavior leading to failure to achieve a therapeutic and effective physician-patient alliance. ? Life expectance < five (5) years independent of renal disease. ? Advanced circulatory disease (cardiac, cerebral, peripheral) or pulmonary disease such that transplantation would pose undue risk of significant morbidity or mortality. ? Obesity with BMI >38. ? Active nicotine abuse. ? Age > 70 years. ? Poor functional status independent of renal disease. PANCREAS Indications for Simultaneous Kidney-Pancreas: Indications for Pancreas after Kidney: Indications for Pancreas Transplant Alone: ? Type 1 Diabetes Mellitus * ? Age 18 years or older ? Chronic Kidney Disease - defined as chronic dialysis dependence or calculated Glomerular Filtration Rate (GFR) of < 20 ml/minute ? Metabolic complications not controlled by medical treatment (for example, hypoglycemic unawareness) ? Type 1 Diabetes Mellitus * ? Well functioning renal allograft ? Stable levels of immunosuppression ? Age 18 years or older ? Metabolic complications not controlled by medical treatment (for example, hypoglycemic unawareness) ? Type 1 Diabetes Mellitus * ? Significant impairement of the individual's quality of life and/or failure of insulin based regimen to adequately control blood glucose levels ? Age 18 years or older ? Metabolic complications not controlled by medical treatment (for example, hypoglycemic unawareness) * Patients with Type 2 Diabetes Mellitus may be considered on an individual basis with a Body Mass Index (BMI) < 30kg/m2 and low insulin requirements. Contraindications: ? Advanced forms of major extrarenal complications, such as Coronary Artery Disease (CAD), Peripheral Vascular Disease (PVD), Chronic Obstructive Pulmonary Disease (COPD), etc. ? Active HIV infection, or other systemic bacterial or fungal infection ? Untreated malignancy or inadequate waiting period following treatment ? Active alcohol or other chemical dependency ? Inability to form treatment alliance (e.g. active psychiatric disorder) ? Body Mass Index (BMI) > 35 kg/m2 ? Advanced pelvic atherosclerotic disease ? We strongly avoid CMV donor positive with recipient negative in pancreas transplant alone due to the high incidence of CMV disease in this population. In exceptional cases (for example 0 MM), we proceed to transplant with patient specific consent about CMV risks. CBC-COMPLETE BLOOD CNT Collected: 11/30/2017 Status: F Source: [place] NO DIFF 2:32 PM REPOSITORY TYPE CODE TESTS RESULT OUT OF RANGE REFERENCE UNITS LAB L100.1000 4.4-11.0 K/mm3 Normal WBC 7.4 LAB L100.1200 4.6-6.2 M/mm3 Low RBC 3.88 LAB L100.1300 13.0-16.5 g/dl Low HGB 10.5 LAB L100.1400 40-54 % Low HCT 32.3 LAB L100.1500 80-94 fL Normal MCV 83.2 LAB L100.1600 27.0-32.0 pg Normal MCH 27.1 LAB L100.1700 32-36 g/gl Normal MCHC 32.5 LAB L100.1810 11.6-14.6 % Normal RDW CV 13.4 LAB L100.1820 35.1-43.9 fl Normal RDW SD 39.0 LAB L100.1900 150-450 K/mm3 Normal PLT 222 LAB L100.2000 6.2-12.0 fl Normal MPV 11.1 Performed By: #### L100.0500 #### [facility] [address] [place], [address] BASIC METABOLIC Collected: 11/30/2017 Status: F Source: [place] PROFILE (BMP) 2:32 PM REPOSITORY TYPE CODE TESTS RESULT OUT OF RANGE REFERENCE UNITS LAB L501.0100 74-106 mg/dL High GLU 138 Result Comment: Fasting Glucose result greater than or equal to 126 mg/dL suggests DIABETES MELLITUS per A.D.A. criteria. Please note revised GLUCOSE reference range effective 2017. LAB L501.1000 7-18 mg/dL High BUN 52 LAB L501.1100 0.70-1.30 mg/dL High CREAT,SERUM 3.77 Result Comment: The validity of the calculated GFR AND GFRAA in patients over 70 years has not been determined. Clinical correlation is essential. LAB L501.1110 >60 mL/min Low EST GFR 17 Result Comment: Non- GFR Calc LAB L501.1115 >60 mL/min Low EST GFR - AA 21 Result Comment: GFR Calc LAB L501.1300 10-20 RATIO Normal BUN/CRE 13.8 LAB L501.2200 8.5-10.1 mg/dL Low CA 8.4 LAB L501.5300 136-145 mmol/L NA Normal 143 LAB L501.5600 3.5-5.1 mmol/L High K 5.2 LAB L501.5900 98-107 mmol/L High CL 111 LAB L501.6100 21.0-32.0 mmol/L Low CO2 20.0 LAB L501.6200 5-15 Normal GAP 12 Performed By: #### L500.2500 #### [facility] [address] [place], [address] PTHIN Collected: 11/30/2017 Status: F Source: RENEE 2:32 PM REPOSITORY TYPE CODE TESTS RESULT OUT OF RANGE REFERENCE UNITS LAB L509.1000 18.4-80.1 pg/mL High PTHIN 240.0 Performed By: #### L509.1000 #### [facility] [address] [place], [address] ONCOLOGY VISIT REPORT Observed: 11/25/2017 Status: F Source: RENEE 5:00 PM REPOSITORY [facility] [address] 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 His past medical history is notable for diabetes for over 20 years duration complicated with nephropathy and hypertension. He was started on oral iron supplement with no significant improvement in his blood counts. He is unaware of any external bleeding and had negative EGD and colonoscopy in 2018. His stools turned black only after he started taking oral iron. He has no first-degree relatives with malignancies. Though he is of [place] ancestry he himself has never traveled to [facility] and to his knowledge never exposed or suffered from malaria. His anemia slowly progressed and he started erythrocyte stimulating agent therapy September 2017 Treatment: Procrit October 08, 2017- - Interval History I continue to feel better - Past Medical/Social History Social History Social History: No changes Smoking Status Former smoker Review of Systems Constitutional:: Denies: Fever, Sweats, Weight loss, Appetite change, Chills Cardiovascular:: Reports: Dyspnea on exertion. Denies: Chest pain, Palpitations, Orthopnea, PND, Shortness of breath Respiratory: Reports: Shortness of breath upon exertion. Denies: Cough, Hemoptysis, Shortness of Breath, Wheezing Gastrointestinal:: Denies: Abdominal pain, Nausea, Vomiting, Diarrhea, Constipation, Hematochezia Genitourinary: Denies: Dysuria, Hematuria, 15, Flank pain Musculoskeletal:: Denies: Back pain, Myalgia, Arthralgia Skin: Denies: Rash, Skin Changes, Wounds Neurological:: Denies: Headache, Dizziness, Visual changes, Tinnitus, Hearing loss Psychiatric: Denies: Anxiety, Depression, Homicidal Ideations, Suicidal Ideations Vital Signs Height 5 ft 8 in Weight: 97.522 kg Weight in Pounds 215.0 lbs Pulse Ox 99 - Physical Exam General: Alert, Oriented x3, No apparent distress HEENT: Atraumatic, PERRLA, EOMI, Normocephalic Oropharynx:: Pale mucosa Neck:: Supple, Trachea midline. Negative for: JVD, bilateral Cardiac:: Regular rate, Regular rhythm, Normal S1, Normal S2. Negative for: Murmur Lungs: Clear to auscultation, Excusion symmetrical. Negative for: Rhonchi, Wheezes Extremities:: Negative for: Cyanosis, Edema Neurological: Neuro grossly intact Skin:: Negative for: Lesions, Rash, Petechiae, Ecchymosis Psychiatric:: Appropriate affect, Euthymic Laboratory Data: Laboratory Tests WBC 7.0 (4.4-11.0) K/mm3 RBC 3.81 L (4.6-6.2) M/mm3 Hgb 10.1 L (13.0-16.5) g/dl Laboratory Tests Hgb 9.9 L 9.6 L 8.9 L Hct 30.3 L 29.1 L 26.9 L Hgb 9.5 L 10.6 L 10.3 L Hct 29.6 L 33.7 L 32.3 L Hgb 10.1 L Hct 31.5 L Assessment and Plan 72-year-old gentleman with a slowly progressively worsening chronic anemia, symptomatic, most consistent with anemia of chronic kidney disease. His iron studies do not show any evidence of iron deficiency on oral iron supplementation. Erythrocyte stimulating agent therapy is now indicated as his anemia has naturally progress (hemoglobin less than 10 g and hematocrit less than 30% in absence of any iron deficiency). He started October 08, 2017. He has a rise in H AND H but still below target. He will be monitored with blood counts every 2 weeks prior to each Procrit injection with dose adjustments as needed. His fatigue is multifactorial including anemia, obstructive sleep apnea, overweight and other comorbid conditions under past medical history. His H AND H are rising consistent with a response to treatment. Plan: #1 continue oral iron supplementation 1 tablet daily. #2 Procrit 20,000 units subcu every 2 weeks reassess in 2 weeks #3 Follow-up closely with Dr. Sharma for optimum blood pressure control Impression and plan discussed. Medications: Prescriptions This Visit Medication Instructions Recorded Amlodipine [Norvasc] 10 mg PO DAILY 06/23/17 Atorvastatin Calcium [Lipitor] 40 mg PO QHS 06/23/17 Calcitriol 5 mcg PO DAILY 06/23/17 Primary Care Provider: Sy Sharma Referring Provider: Sy Sharma 11/25/17 1700 <Electronically signed by Shania Hanks MD> Date Shania Hanks MD Cosigner Signature: Date (if applicable) CC: CBC W/DIFF, AUTOMATED Collected: 11/25/2017 Status: F Source: RENEE 3:22 PM REPOSITORY Order Comment: Reason for Laboratory Test OV TYPE CODE TESTS RESULT OUT OF RANGE REFERENCE UNITS LAB L100.1000 4.4-11.0 K/mm3 Normal WBC 7.0 LAB L100.1200 4.6-6.2 M/mm3 Low RBC 3.81 LAB L100.1300 13.0-16.5 g/dl Low HGB 10.1 LAB L100.1400 40-54 % Low HCT 31.5 LAB L100.1500 80-94 fL Normal MCV 82.7 LAB L100.1600 27.0-32.0 pg Low MCH 26.5 LAB L100.1700 32-36 g/gl Normal MCHC 32.1 LAB L100.1810 11.6-14.6 % Normal RDW CV 13.6 LAB L100.1820 35.1-43.9 fl Normal RDW SD 41.1 LAB L100.1900 150-450 K/mm3 Normal PLT 168 LAB L100.2000 6.2-12.0 fl Normal MPV 10.3 LAB L100.2100 47-70 % Normal NEUT% 54.8 LAB L100.2200 19-41 % Normal LY% 27.6 LAB L100.2300 0-10 % Normal MONO% 8.7 LAB L100.2400 0-5 % High EO% 8.4 LAB L100.2500 0-1 % Normal BASO% 0.4 LAB L100.2550 0.0-0.9 % Normal IM GRAN % 0.100 Result Comment: IG% - Immature Granulocytes (promyelocytes, myelocytes and metamyelocytes) > 1% indicates that a LEFT SHIFT is Present. LAB L100.2620 2.0-7.7 X10 3/uL Normal Absolute Neut 3.8 LAB L100.2720 0.83-4.51 X10 3/ul Normal Absolute Lymph 1.94 Performed By: #### L100.0100 #### [facility] [address] [facility] [place], [address] 12 LEAD ELECTROCARDIOGRAM Observed: 11/22/2017 Status: F Source: QUIN[place] 2:21 PM REPOSITORY [facility] [address] [place] [address] 12 Lead EKG 11/18/17 1445 MR#: [id number] Acct: [id number] Name: JIMENEZ GANDARA Rep #: [id number] : 1945 72 From: Aidan Lin MD Attending Dr: Sary Leonard Status: DIS IN Ordering Dr: Aggie Vela DO Date: 11/18/17 Location: [facility] Sex: M C Admitted: 11/18/17 Test Reason : DIZZINESS Blood Pressure : / mmHG Vent. Rate : 066 BPM Atrial Rate : 066 BPM P-R Int : 182 ms QRS Dur : 144 ms QT Int : 412 ms P-R-T Axes : 030 003 001 degrees QTc Int : 431 ms Normal sinus rhythm Right bundle branch block Abnormal ECG Confirmed by AIDAN LIN MD ([id number]), editorial cartoonist AASHISH PRICE ([id number]) on 11/22/2017 2:21:05 PM Referred By: SJ/C Confirmed By:AIDAN LIN MD 11/22/17 1421 Date Aidan Lin MD CC: Sary Leonard; Aggie Vela DO; Sy Sharma MD Signed DISCHARGE SUMMARY Observed: 11/19/2017 Status: F Source: [place] 2:58 PM REPOSITORY [facility] Medical Records Department [address] [place] [address] Discharge Summary 11/19/17 1414 MR#: [id number] Acct: [id number] Name: JIMENEZ GANDARA Rep #: [id number] : 1945 72 From: Heladio HARRIS PCP: Sy Sharma MD, Chi Status: DIS IN Y Location: [place] [address] <Heladio Capps - Last Filed: 11/19/17 14:14> Discharge Date and Diagnosis Date of Admission: 11/18/17 Date of Discharge: 11/19/17 - Primary Discharge Diagnosis DEVIN secondary to dehydration Hyperkalemia Near-syncope 2/2 above Obstructive sleep apnea CKD stage IV Type 2 diabetes mellitus Hypertension - Secondary Discharge Diagnosis Chronic Problems (Last Reviewed 11/18/17 @ 18:24 by Santino De La Torre DO) SUSAN (obstructive sleep apnea) (Chronic) Obesity (Chronic) Anemia of chronic renal failure, stage 4 (severe) (Chronic) Chronic kidney disease, stage IV (severe) (Chronic) 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 There is no interval change when compared to May 16, 2014. RAD/Chest 1 View (Portable) IMPRESSION: No acute cardiopulmonary disease or major interval change. RAD/Cerv Spine 2 or 3 Views IMPRESSION: Straightening of the cervical lordosis with degenerative changes of the cervical spine. Operations: None Procedures: None Summary of Care Provided: Physical exam on day of discharge: General: Resting comfortably NAD Psych: A/Ox3 normal affect HEENT: PEARRLA AT NC Neck: Supple NT CV: RRR no m/t/r/g/h Resp: CTA Abd: [id number] Soft NT no guarding or rigidity Ext: DP2+= no edema Skin: W/D normal turgor Lymph/Heme: No active bleeding or adenopathy Neuro: CN2-12 intact Hospital course: The patient is a 72 year old M with history of CKD stage IV, type 2 diabetes, hypertension, obstructive sleep apnea, who presented to the emergency room after experiencing a near syncopal episode. He had some abdominal cramps and went to the restroom and became dizzy. He had a second episode later that day. He came to the emergency room was found to have worsening of his underlying kidney disease with a creatinine of 4.2, baseline around 3.64, he also had elevated potassium of 5.9, in the ER his orthostatic vitals are negative. He had a x-ray of his C-spine which was negative, he also had a CT of the brain which was negative. Chest x-ray was unremarkable. Patient reported he had been outside working in the heat and not drinking very much water and felt he might be dehydrated. He was given IV fluids and admitted to the PCU on telemetry. He had no events on telemetry. Repeat lab work in the morning demonstrated improvement in his underlying CKD. His carpenter supervisor was called, Dr. Mix, and felt that he could be seen in the office that his numbers were improved significantly. With resolution of his AK I he was discharged home in stable condition. He will need to follow-up with his carpenter supervisor as directed, as well as with his PCP in 1-2 weeks. This patient was seen by Heladio Capps PA-C under the supervision of Doctor Aisha. [] Discharge Diet: Low fat/ Low Cholesterol, 1800 Calorie Control Diet, 2000 mg Sodium Diet, Renal Diet Discharge Activity: Return to Normal Activity Home Medications: Medications to take at Discharge Amlodipine [Norvasc] 10 mg PO DAILY 06/23/17 Atorvastatin Calcium [Lipitor] 40 mg PO QHS 06/23/17 Calcitriol 5 mcg PO DAILY 06/23/17 Dulaglutide [Trulicity] 1.5 mg SQ REYNA 06/23/17 Ferrous Sulfate [Iron] 65 mg PO DAILY 06/23/17 Linagliptin [Tradjenta] 5 mg PO DAILY 06/23/17 Losartan Potassium 100 mg PO DAILY 06/23/17 Carvedilol [Coreg (Beta Samantha)] 12.5 mg PO BID 07/21/17 Primary Care Physician: Sy Sharma Chi, MD [Primary Care Provider] - Please follow up with your Primary Care Physician in: 1 week Please Follow Up With: Mary Mix DO When: as directed Disposition: Home Minutes spent on discharge:: 35 Patient Condition:: Stable Medical Necessity - Tobacco Use Smoking Status: Former smoker Tobacco Use: Non-smoker Meaningful Use Info Meaningful Use Diagnoses (Choose all that apply): None applicable <Sary Leonard - Last Filed: 11/19/17 14:57> Discharge Date and Diagnosis - Primary Discharge Diagnosis #1 acute kidney injury on top of stage IV chronic kidney disease. #2 hyperkalemia. 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 Patient was admitted because of near syncope. He was found to have acute kidney injury on top of stage IV chronic kidney disease. Symptoms seem to be due to vasovagal episode. He was found to have serum creatinine of 4.2 which is up from his baseline creatinine which was around 3 mg/dL. His potassium was 5.9. There was no EKG changes related to hyperkalemia. Patient was treated with IV fluids and received 1 dose of Kayexalate. Today, his kidney function improved as well as his potassium. He had a CT scan brain that showed no evidence of acute infarction or hemorrhage. He had a cervical spine x-ray that showed no fractures or dislocations. After discussion with nephrology, patient discharged home in a stable medical condition. He was discharged on the same medication that he was taking before admission without any changes, plan to follow-up with nephrology in 1 week, recommended from PCP in 1 week as well. - Physical Exam General: Alert, Oriented x3, Cooperative, No apparent distress. HEENT: Atraumatic, PERRLA, EOMI. Neck: Supple, No JVD, Negative Carotid Bruits, Trachea Midline, Thyroid Normal. Lungs: Clear to auscultation, Normal air movement, No rhonchi, No wheeze, No rales. Cardiovascular: Regular rate, Regular Rhythm, Normal S1, Normal S2, PMI Normal. Abdomen: Bowel Sounds Present, Soft, Non Tender, Non-Distended, No Hepato-splenomegaly. Extremities: No clubbing, No cyanosis, No edema Skin: No rashes, No breakdown Neurological: Neuro grossly intact This note was generated with ii4b dictation software. It may contain incorrect words, spelling, and punctuation that were not noted in checking the note before signing. Minutes spent on discharge:: 26 Patient Condition:: Stable Meaningful Use Info Meaningful Use Diagnoses (Choose all that apply): None applicable Code Visit Inpatient E AND M: 72030 Disch Hosp 11/19/17 1419 <Electronically signed by Heladio HARRIS> Date Heladio HARRIS 11/19/17 9048<Electronically signed by Sary Leonard MD> Cosigner Signature (if applicable): Date Sary Leonard MD CC: STEVEN Capps; Mary Mix DO; Sary Leonard; Sy Sharma MD Signed DISCHARGE INSTRUCTION Observed: 11/19/2017 Status: F Source: RENEE 12:28 PM REPOSITORY [facility] Medical Records Department [address] [place] [address] Instructions for Home/Discharge Instructions 11/19/17 1226 MR#: [id number] Acct: [id number] Name: JIMENEZ GANDARA Rep #: [id number] : 1945 72 From: Heladio HARRIS PCP: Sy Sharma MD, Chi Status: ADM IN - Discharge Diagnoses Current Active Problems: Current Active and Chronic Problems (Last Reviewed 11/18/17 @ 18:24 by Santino De La Torre DO) DEVIN (acute kidney injury) (Acute) Hyperkalemia (Acute) Near syncope (Acute) You will use the following diet at home:: Calorie/Carbohydrate Controlled (specify 1200, 1400, etc) - 1800 alvaro / day, Cardiac - 2 g sodium daily, Renal (restricted protein/sodium) Your food should be the consistency of: Regular Your liquids should be the consistency of: Regular/Thin Discharge Activity: Return to Normal Activity Allergies/Adverse Reactions: Allergies No Known Allergies Allergy (Verified 11/18/17 14:36) Medications to take at Discharge Amlodipine [Norvasc] 10 mg PO DAILY 06/23/17 Atorvastatin Calcium [Lipitor] 40 mg PO QHS 06/23/17 Calcitriol 5 mcg PO DAILY 06/23/17 Dulaglutide [Trulicity] 1.5 mg SQ REYNA 06/23/17 Ferrous Sulfate [Iron] 65 mg PO DAILY 06/23/17 Linagliptin [Tradjenta] 5 mg PO DAILY 06/23/17 Losartan Potassium 100 mg PO DAILY 06/23/17 Carvedilol [Coreg (Beta Samantha)] 12.5 mg PO BID 07/21/17 Primary Care Physician: Sy Sharma Chi, MD [Primary Care Provider] - Please follow up with your Primary Care Physician in: 1 week Test Results: Test results from this visit will be discussed in further detail at your follow-up appointment, if applicable. Please Follow Up With: Mary Mix DO Proposed Discharge Date: 11/19/17 11/19/17 1228 <Electronically signed by Heladio HARRIS> Date Heladio HARRIS CC: Mary Mix DO; Sy Sharma MD BEDSIDE GLUCOSE Collected: 11/19/2017 Status: F Source: RENEE 6:40 AM REPOSITORY TYPE CODE TESTS RESULT OUT OF REFERENCE UNITS RANGE LAB L501.080 70-110 mg/dL High BEDSIDE GLU 113 Result Comment: MANAGEMENT OF PATIENT CARE PER NURSING PROTOCOL Performed By: #### L501.080 #### [facility] Point of Care [address] [facility] [place]. [place], [place] [address] PROTHROMBIN TIME W/INR Collected: 11/19/2017 Status: F Source: RENEE 5:15 AM REPOSITORY TYPE CODE TESTS RESULT OUT OF RANGE REFERENCE UNITS LAB L300.4150 11.7-14.9 SECONDS Normal PROTIME 14.9 LAB L300.4200 Normal INR 1.2 Performed By: #### L300.3900 #### [facility] [address] [facility] [place], [address] RENAL PROFILE Collected: 11/19/2017 Status: F Source: RENEE 5:15 AM REPOSITORY TYPE CODE TESTS RESULT OUT OF RANGE REFERENCE UNITS LAB L501.0100 74-106 mg/dL High GLU 108 Result Comment: Fasting Glucose result from 100 to 125 mg/dL suggests IMPAIRED HOMEOSTASIS per A.D.A. criteria. Please note revised GLUCOSE reference range effective 2017. LAB L501.1000 7-18 mg/dL High BUN 46 LAB L501.1100 0.70-1.30 mg/dL High CREAT,SERUM 3.59 Result Comment: The validity of the calculated GFR AND GFRAA in patients over 70 years has not been determined. Clinical correlation is essential. LAB L501.1110 >60 mL/min Low EST GFR 18 Result Comment: Non- GFR Calc LAB L501.1115 >60 mL/min Low EST GFR - AA 22 Result Comment: GFR Calc LAB L501.1255 ml/min Normal Estimated CRCL 18.52 LAB L501.1300 10-20 RATIO Normal BUN/CRE 12.8 LAB L501.1800 3.2-5. g/dL Low 0 ALB 2.8 LAB L501.2200 8.5-10 mg/dL Low .1 CA 7.6 LAB L501.2300 2.5-4. mg/dL Normal 9 PHOS 4.4 LAB L501.5300 136-14 mmol/L High 5 NA 146 LAB L501.5600 3.5-5. mmol/L Normal 1 K 4.7 LAB L501.5900 98-107 mmol/L High CL 117 LAB L501.6100 21.0-3 mmol/L Low 2.0 CO2 19.0 Performed By: #### L500.3600 #### [facility] [address] [place], [place], [id number] TROPONIN-I Collected: 11/18/2017 Status: F Source: [place] 10:52 PM REPOSITORY Order Comment: 'TROP' Serial specimen #1, #2 or #3: 2 TYPE CODE TESTS RESULT OUT OF RANGE REFERENCE UNITS LAB L501.4010 <0.045 ng/mL Normal < 0.015 TROPONIN-I Result Comment: TROPONIN-I EXPECTED VALUES <0.045 Negative 0.045 - 0.590 Consistent with Cardiac Damage > OR = 0.600 Critical Value Not every elevated troponin is indicative of [place]. These values should be used with clinical judgement in examining the patient's clinical picture for diagnosis. To establish a diagnosis of [place] versus myocardial injury, there must be a demonstrated rise and/or fall in the troponin values, in addition to ischemic symptoms, EKG changes, new regional wall motion abnormality, and/or angiographical evidence. PLEASE NOTE: REFERENCE RANGES EDITED 17 Performed By: #### L501.4010 #### [facility] [address] [place], [place], [address] TROPONIN-I Collected: 11/18/2017 Status: F Source: QUINNESEC 8:24 PM REPOSITORY Order Comment: 'TROP' Serial specimen #1, #2 or #3: 2 TYPE CODE TESTS RESULT OUT OF RANGE REFERENCE UNITS LAB L501.4010 <0.045 ng/mL Normal < 0.015 TROPONIN-I Result Comment: TROPONIN-I EXPECTED VALUES <0.045 Negative 0.045 - 0.590 Consistent with Cardiac Damage > OR = 0.600 Critical Value Not every elevated troponin is indicative of [place]. These values should be used with clinical judgement in examining the patient's clinical picture for diagnosis. To establish a diagnosis of [place] versus myocardial injury, there must be a demonstrated rise and/or fall in the troponin values, in addition to ischemic symptoms, EKG changes, new regional wall motion abnormality, and/or angiographical evidence. PLEASE NOTE: REFERENCE RANGES EDITED 17 Performed By: #### L501.4010 #### [facility] [address] [place], [address] HISTORY AND PHYSICAL Observed: 11/18/2017 Status: F Source: QUINNESEC EXAM 6:29 PM REPOSITORY [facility] Medical Records Department [address] [place] [address] History and Physical 11/18/17 1822 MR#: [id number] Acct: [id number] Name: JIMENEZ GANDARA Rep #: [id number] : 1945 72 From: Santino De La Torre DO PCP: Zachary JOSEPH,Sy Estrella Status: REG ER Y Location: ED Problem List (1) DEVIN (acute kidney injury) Status: Acute (2) Hyperkalemia Status: Acute (3) Near syncope Status: Acute History of Present Illness Date of Admission: 11/18/17 Chief Complaint: near syncope The patient is a 72 year old M who was in his normal state of health up until early this morning where patient had cramps. I went to the restroom. I went back to his room and had a near syncopal and where he fell and felt dizzy. Patient went back to the bathroom again did have a bowel movement with cramps but then cramps resolved thereafter. Patient went back again and then another near syncopal episode and did his chin. Patient was brought to the emergency room in and found to have a creatinine of 4.2, with a baseline of 3.64. Potassium is also elevated at 5.9. Patient did receive IV fluids as well as Kayexalate. Orthostatic vital signs in the emergency room were negative. 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 DM2 (diabetes mellitus, type 2) (Chronic) E11.9 Hypertensive urgency (Acute) I16.0 ARF (acute renal failure) (Acute) HTN (hypertension) (Chronic) I10 Pre-syncope (Acute) Anemia D64.9 Hyperlipidemia E78.5 Allergies No Known Allergies Allergy (Verified 11/18/17 14:36) Home Medications: Ambulatory Orders Medication Instructions Recorded Surgical History: Surgical History (Last Reviewed 11/18/17 @ 18:24 by Santino De La Torre DO) S/P colonoscopy Z98.890 [place] teeth removed K08.409 Surgical History: no surgical history Lives: Spouse/ Significant Other Smoking Status: Former smoker Tobacco Use: Non-smoker Alcohol: None Drugs: None - *Family History Maternal Family History: Family History (Last Reviewed 11/18/17 @ 18:24 by Santino De La Torre DO) Father Pneumonia Mother CVA (cerebral vascular accident) History Items: Diabetes, Hypertension, Renal Disease, Stroke Paternal Family History: Family History (Last Reviewed 11/18/17 @ 18:24 by Santino De La Torre DO) Father Pneumonia Mother CVA (cerebral vascular accident) History Items: Heart Disease Review of Systems Constitutional: Reports: Weakness. Denies: Chills, Fever, Weight Change Eyes: Denies: Blurred vision, Double vision HEENT: Denies: Head Aches, Sinus Congestion, Sinus Drainage Cardiovascular: Denies: Chest Pain, Palpitations Respiratory: Denies: Cough, Shortness of breath at rest, Sputum production Gastrointestinal: Reports: Abdominal Pain, Nausea. Denies: Diarrhea, Vomiting Genitourinary: Reports: - - Decreased urinary output. Denies: Dysuria Musculoskeletal: Denies: Joint Pain, Joint Tenderness Skin: Denies: Rash, Wounds Neurological: Reports: Balance problems. Denies: Blurred vision, Double vision, Change in Speech, Confusion, Focal weakness, Incoordination Psychiatric: Denies: Anxiety, Depression Endocrine: Denies: Change in Body Habitus, Heat/ Cold Intolerance Hematologic/ Lymphatic: Denies: Easy Bruising, Easy Bleeding, Hx of blood clot Comment: All review of systems are negative except as mentioned in the history of present illness and the other review of systems. VTE Information - Inpt Only VTE Present on Admission: No VTE Mechan Device Prophylaxis: None VTE Pharm Prophylaxis ordered?: Yes Patient Problems: Active and Suspected Problems (Last Reviewed 11/03/17 @ 13:36 by Dia Stuart) DEVIN (acute kidney injury) (Acute) Hyperkalemia (Acute) Near syncope (Acute) - Physical Exam General: Alert, Cooperative, No apparent distress HEENT: Atraumatic, PERRLA, EOMI, Normocephalic Oral: Moist Mucosa, No Gingival or Mucosal Lesions/ Ulcerations Neck: No Nodes, Thyroid Normal Size and Texture Lungs: Clear to auscultation, Normal air movement, No rhonchi, No wheeze Cardiovascular: Regular rate, Regular Rhythm, Normal S1, Normal S2, No murmurs Abdomen: Bowel Sounds Present, Soft, Non Tender, Non-Distended, No Hepato-splenomegaly Extremities: No edema, No Calf Tenderness Skin: No rashes, No breakdown Musculoskeletal: No Tenderness to Palpation of Joints or Extremities, No Muscle Wasting Neurological: Cranial nerves II-XII grossly intact, Neuro grossly intact, Motor Exam 5/5 strength throughout, Muscle tone normal Psych/Mental Status: Normal Affect, Appropriate Vital Signs Temp Pulse Resp BP Pulse Ox 36.2 C L 77 17 186/72 H 99 11/18/17 14:33 11/18/17 17:20 11/18/17 17:20 11/18/17 17:20 11/18/17 17:20 Oxygen Delivery Method Room Air Weight: 96.162 kg Body Mass Index (BMI) 32.2 Laboratory Tests Past 24 Hrs WBC 7.9 RBC 3.88 L Hgb 10.3 L Hct 32.3 L MCV 83.2 MCH 26.5 L MCHC 31.9 L RDW 14.0 RDW Differential 42.3 EKG showed normal sinus rhythm right bundle branch block. No acute changes. Clinical Impression(s) from Imaging Studies Brain CT 11/18/17 15:10 IMPRESSION: No acute intracranial or calvarial abnormality. There is no interval change when compared to May 16, 2014. Electronically Signed: Froilan Valdes DO at 16:09 EDT Tel [phone], Service support , Chest X-Ray 11/18/17 15:10 IMPRESSION: No acute cardiopulmonary disease or major interval change. Electronically Signed: Froilan Valdes DO at 16:12 EDT Tel [phone], Service support , Cervical Spine X-Ray 11/18/17 15:12 IMPRESSION: Straightening of the cervical lordosis with degenerative changes of the cervical spine. Electronically Signed: Froilan Valdes DO at 16:11 EDT Tel [phone], Service support , Assessment/Plan All Active Problems (Last Reviewed 11/03/17 @ 13:36 by Dia Stuart) DEVIN (acute kidney injury) (Acute) Hyperkalemia (Acute) Near syncope (Acute) Screening for intestinal cancer (Acute) Hypertensive urgency (Acute) ARF (acute renal failure) (Acute) Pre-syncope (Acute) 1. 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 Mix 2. Hyperkalemia * Further with the renal failure but also the ARB * Patient received Kayexalate in the emergency room * No acute EKG changes at this time * Recheck lab work in the morning * Hold losartan 3. Near syncope * Orthostatics are negative * I suspect that this is related with patient's dehydration but also some the abdominal cramping * Patient abdominal cramping is resolved and I will not pursue any additional workup pertaining to that 4. Chronic kidney disease stage IV * The acute worsening I feels only transient due to dehydration * Nephrology on consultation * No need for renal replacement therapy at this time 5. DVT prophylaxis with subcu heparin Code Visit Inpatient E AND M: [id number] Init Hosp L3 11/18/17 1829 <Electronically signed by Santino De La Torre DO> Date Santino De La Torre DO Cosigner Signature: Date (if applicable) CC: Santino De La Torre DO; Sy Sharma MD Signed EMERGENCY DEPARTMENT Observed: 11/18/2017 Status: F Source: QUINNESEC SUMMARY 5:09 PM REPOSITORY [facility] Medical Records Department [address] [place] [address] Emergency Department Summary 11/18/17 1708 MR#: [id number] Acct: [id number] Name: JIMENEZ GANDARA Rep #: [id number] : 1945 72 From: Aggie Vela DO PCP: Sy Sharma MD, Chi Status: REG ER - ER Visit Summary Date of Service: 11/18/17 Chief Complaint: [Addendum to initial dictation] History of Present Illness: The patient is a 72 M [] Physical Examination: [] Test Results: [CBC with differential showed white count 7.9, hemoglobin 10, hematocrit 32, platelets 171. Chemistry showed a sodium 144, potassium 5.9, chloride 115, CO2 21, glucose 183. BUN was 55 and current was 4.20. Troponin was less than 0.015. Chest x-ray showed nothing acute. CT of the brain showed nothing acute. C-spine x-rays obtained show degenerative changes but no fractures.] Emergency Department Course and Treatment: [Patient's BUN and creatinine have both increased in the last 2 months and patient is hyperkalemic today.] Treatment Plan: [Admit for further workup and evaluation of his renal failure and treatment of his hyperkalemia] Disposition: [Admit] Impression: [Renal failure Hyperkalemia Vasovagal episode Fall with cervical strain] This note was generated with ii4b dictation software. It may contain incorrect words, spelling, and punctuation that were not noted in review of the chart prior to signing ED Disposition - Plan for ED Patient: Chief Complaint: Dizziness Referrals: Sy Sharma Chi, MD [Primary Care Provider] - What to do if you have Problems For any increased pain, shortness of breath, bleeding, nausea or vomiting, chest pain, or any unexpected problems, contact your Primary Care Provider. Call [facility] ([phone]) or report to the closest Emergency Room. Call 911 if necessary. 11/18/17 1709 <Electronically signed by Aggie Vela DO> Date Aggie Vela DO Cosigner Signature (If Indicated): Date CC: Sy Sharma MD EMERGENCY DEPARTMENT Observed: 11/18/2017 Status: F Source: QUINNESEC SUMMARY 3:35 PM REPOSITORY [facility] Medical Records Department [address] [place] [address] Emergency Department Summary 11/18/17 1531 MR#: [id number] Acct: [id number] Name: JIMENEZ GANDARA Rep #: [id number] : 1945 72 From: Aggie Vela DO PCP: Sy Sharma MD, Chi Status: PRE ER - ER Visit Summary Date of Service: 11/18/17 Chief Complaint: [Weakness] History of Present Illness: The patient is a 72 M [with complaint of mainly fatigue today and no energy. Patient recounts an episode last evening where he woke up at 3 AM feeling like he was having a lot of abdominal cramping and needed to have a bowel movement therefore he went and sat on the toilet. While on the toilet he states he really could not go but began feeling lightheaded, sweaty, and generally not feeling well. Patient states that he try to walk back to his bedroom where he fell into the side of the bed as he was trying to get into bed. Patient did not lose consciousness. Patient thinks he may have injured his neck when he fell into the side of the bed. Is not sure if he hit his head. Patient is not on any blood thinners. Today he is not feeling dizzy or lightheaded however when he walks he feels a little bit off balance. Patient denies any numbness or tingling or weakness of the extremities. Patient denies chest pain or shortness of breath. Patient has not had any recent illness. He has not had any vomiting or diarrhea.] Physical Examination: [HEENT-PERRLA, EOMI. Cranial nerves II through XII grossly intact. TMs clear. Mucous membranes moist. No adenopathy. Head is atraumatic. Patient does have some diffuse C-spine tenderness on palpation. Patient rates his pain a 5 or 6 out of 10. Cardiovascular-regular rate and rhythm without murmur or ectopy Lungs-clear to auscultation, chest wall stable without crepitus or subcu emphysema Abdomen-normoactive bowel sounds, soft, nontender, no rebound or rigidity, no peritoneal signs. Neuro sffu-mczzht-owoe and heel garcia testing within normal limits, negative Romberg, negative pronator drift. Back exam-patient has no tenderness over the thoracic or lumbar spine. Patient has negative straight leg raises. Extremities-intact 4, normal range of motion, normal pulses, atraumatic] Test Results: [EKG obtained on arrival showed a sinus rhythm with a ventricular rate of 66 bpm and a right bundle branch block.] Emergency Department Course and Treatment: [] Treatment Plan: [] Disposition: [] Impression: [] This note was generated with ii4b dictation software. It may contain incorrect words, spelling, and punctuation that were not noted in review of the chart prior to signing ED Disposition - Plan for ED Patient: Chief Complaint: Dizziness Referrals: Sy Sharma Chi, MD [Primary Care Provider] - What to do if you have Problems For any increased pain, shortness of breath, bleeding, nausea or vomiting, chest pain, or any unexpected problems, contact your Primary Care Provider. Call [facility] ([phone]) or report to the closest Emergency Room. Call 911 if necessary. 11/18/17 1535 <Electronically signed by Aggie Vela DO> Date Aggie Vela DO Cosigner Signature (If Indicated): Date CC: Sy Sharma MD CBC W/DIFF, AUTOMATED Collected: 11/18/2017 Status: F Source: RENEE 3:35 PM REPOSITORY TYPE CODE TESTS RESULT OUT OF RANGE REFERENCE UNITS LAB L100.1000 4.4-11.0 K/mm3 Normal WBC 7.9 LAB L100.1200 4.6-6.2 M/mm3 Low RBC 3.88 LAB L100.1300 13.0-16.5 g/dl Low HGB 10.3 LAB L100.1400 40-54 % Low HCT 32.3 LAB L100.1500 80-94 fL Normal MCV 83.2 LAB L100.1600 27.0-32.0 pg Low MCH 26.5 LAB L100.1700 32-36 g/gl Low MCHC 31.9 LAB L100.1810 11.6-14.6 % Normal RDW CV 14.0 LAB L100.1820 35.1-43.9 fl Normal RDW SD 42.3 LAB L100.1900 150-450 K/mm3 Normal PLT 171 LAB L100.2000 6.2-12.0 fl Normal MPV 10.5 LAB L100.2100 47-70 % Normal NEUT% 69.7 LAB L100.2200 19-41 % Low LY% 18.9 LAB L100.2300 0-10 % Normal MONO% 6.7 LAB L100.2400 0-5 % Normal EO% 4.3 LAB L100.2500 0-1 % Normal BASO% 0.3 LAB L100.2550 0.0-0.9 % Normal IM GRAN % 0.100 Result Comment: IG% - Immature Granulocytes (promyelocytes, myelocytes and metamyelocytes) > 1% indicates that a LEFT SHIFT is Present. LAB L100.2620 2.0-7.7 X10 3/uL Normal Absolute Neut 5.5 LAB L100.2720 0.83-4.51 X10 3/ul Normal Absolute Lymph 1.50 Performed By: #### L100.0100 #### [facility] [address] [facility] [place], [place], [address] BASIC METABOLIC Collected: 11/18/2017 Status: F Source: QUINNESEC PROFILE (BMP) 3:35 PM REPOSITORY TYPE CODE TESTS RESULT OUT OF RANGE REFERENCE UNITS LAB L501.0100 74-106 mg/dL High GLU 183 Result Comment: Fasting Glucose result greater than or equal to 126 mg/dL suggests DIABETES MELLITUS per A.D.A. criteria. Please note revised GLUCOSE reference range effective 2017. LAB L501.1000 7-18 mg/dL High BUN 55 LAB L501.1100 0.70-1.30 mg/dL High CREAT,SERUM 4.20 Result Comment: The validity of the calculated GFR AND GFRAA in patients over 70 years has not been determined. Clinical correlation is essential. LAB L501.1110 >60 mL/min Low EST GFR 15 Result Comment: Non- GFR Calc LAB L501.1115 >60 mL/min Low EST GFR - AA 18 Result Comment: GFR Calc LAB L501.1255 ml/min Normal Estimated CRCL 15.83 LAB L501.1300 10-20 RATIO Normal BUN/CRE 13.1 LAB L501.2200 8.5-10 mg/dL Low .1 CA 8.2 LAB L501.5300 136-14 mmol/L Normal 5 NA 144 LAB L501.5600 3.5-5. mmol/L High 1 K 5.9 LAB L501.5900 98-107 mmol/L High CL 115 LAB L501.6100 21.0-3 mmol/L Normal 2.0 CO2 21.0 LAB L501.6200 5-15 Normal GAP 8 Performed By: #### L500.2500, L501.4010 #### [facility] [address] [place], [place], [address] TROPONIN-I Collected: 11/18/2017 Status: F Source: QUINNESEC 3:35 PM REPOSITORY TYPE CODE TESTS RESULT OUT OF RANGE REFERENCE UNITS LAB L501.4010 <0.045 ng/mL Normal < 0.015 TROPONIN-I Result Comment: TROPONIN-I EXPECTED VALUES <0.045 Negative 0.045 - 0.590 Consistent with Cardiac Damage > OR = 0.600 Critical Value Not every elevated troponin is indicative of [place]. These values should be used with clinical judgement in examining the patient's clinical picture for diagnosis. To establish a diagnosis of [place] versus myocardial injury, there must be a demonstrated rise and/or fall in the troponin values, in addition to ischemic symptoms, EKG changes, new regional wall motion abnormality, and/or angiographical evidence. PLEASE NOTE: REFERENCE RANGES EDITED 17 Performed By: #### L500.2500, L501.4010 #### [facility] [address] [place], [address] BRAIN/HEAD WITHOUT Observed: 11/18/2017 Status: F Source: QUINNESEC CONTRAST 3:12 PM REPOSITORY [facility] Imaging Services [address] [facility] [place] [address] Brain/Head without Contrast MR#: [id number] Acct: [id number] Name: JIMENEZ GANDARA Rep #: [id number] : 1945 M 72 From: Froilan Valdes DO PCP: Zachary JOSEPH,Sy [facility] Status: REG ER Study: Brain/Head without Contrast Date of Exam: 11/18/17 Exam# [id number] Ordering Dr: Aggie Vela DO STUDY: CT BRAIN WITHOUT CONTRAST REASON FOR EXAM: Male, 72 years old. Dizziness. Weakness. Fall. Not sure of direct head trauma. RADIATION DOSAGE (If Supplied By Facility): CTDIvol = ( 44.99 ) mGy, DLP = ( 796.11 ) mGycm TECHNIQUE: Transaxial CT imaging of the brain was performed without administration of intravenous contrast material. Individualized dose optimization techniques were used for this CT. COMPARISON: May 15, 2014. FINDINGS: Normal soft tissue structures. Normal calvarium. Normal size ventricles and extra-axial spaces for the patient's age. Normal white matter tracts of the cerebral hemispheres. Normal basal ganglia and thalami. Normal brainstem. Normal cerebellum. There is no intracranial hemorrhage. There are no findings of an acute ischemic infarction. There is opacification of the right ethmoid air cells and sphenoid sinus. CT/Brain/Head without Contrast IMPRESSION: No acute intracranial or calvarial abnormality. There is no interval change when compared to May 16, 2014. Electronically Signed: Froilan Valdes DO at 16:09 EDT Tel [phone], Service support , CC: Aggie Vela DO; Sy Sharma MD Manufacturing Assembler: Signed CERV SPINE 2 OR 3 Observed: 11/18/2017 Status: F Source: QUINNESEC VIEWS 3:12 PM REPOSITORY [facility] Imaging Services [address] [place] [address] Cerv Spine 2 or 3 Views MR#: [id number] Acct: [id number] Name: JIMENEZ GANDARA Rep #: [id number] : 1945 M 72 From: Froilan Valdes DO PCP: Sy Sharma MD, Chi Status: REG ER Study: Cerv Spine 2 or 3 Views Date of Exam: 11/18/17 Exam# [id number] Ordering Dr: Aggie Vela DO STUDY: X-RAY - CERVICAL SPINE REASON FOR EXAM: Male, 72 years old. Dizziness. Weakness. Fall. Neck pain. TECHNIQUE: 3 view(s) of the cervical spine were obtained. COMPARISON: None FINDINGS: There are degenerative changes of the anterior atlantoaxial articulation. Normal odontoid process. There is straightening of the normal cervical lordosis. There is multi-level endplate spondylosis. There is multi-level degenerative disc disease with multilevel disc space narrowing. This is most marked at C5-6 and C6-7. There is no evidence of acute fracture or loss of vertebral axial height. There is maintenance of normal alignment. The soft tissue structures are unremarkable. RAD/Cerv Spine 2 or 3 Views IMPRESSION: Straightening of the cervical lordosis with degenerative changes of the cervical spine. Electronically Signed: Froilan Valdes DO at 16:11 EDT Tel [phone], Service support , CC: Aggie Vela DO; Sy Sharma MD Manufacturing Assembler: Signed CHEST 1 VIEW Observed: 11/18/2017 Status: F Source: QUINNESEC (PORTABLE) 3:12 PM REPOSITORY [facility] Imaging Services [address] [place] [address] Chest 1 View (Portable) MR#: [id number] Acct: [id number] Name: JIMENEZ GANDARA Rep #: [id number] : 1945 M 72 From: Froilan Valdes DO PCP: Sy Sharma MD, Chi Status: REG ER Study: Chest 1 View (Portable) Date of Exam: 11/18/17 Exam# [id number] Ordering Dr: Aggie Vela DO STUDY: X-RAY CHEST REASON FOR EXAM: Male, 72 years old. Dizziness. Weakness Fall. Diaphoresis. Neck pain. TECHNIQUE: Single AP portable view of the chest. COMPARISON: February 28, 2017 FINDINGS: Telemetry wires overlie the chest. The lungs are clear and expanded. There is stable elevation of the right hemidiaphragm. There is no demonstrated pleural abnormality. Normal size heart. Normal mediastinum and yoel. Normal visualized pulmonary arteries. Normal visualized aortic arch and descending thoracic aorta. There are diffuse degenerative changes of the visualized thoracic spine. Normal visualized ribs, clavicles, and shoulders. There is no demonstrated abnormality of the visualized soft tissue structures of the upper abdomen. RAD/Chest 1 View (Portable) IMPRESSION: No acute cardiopulmonary disease or major interval change. Electronically Signed: Froilan ValdesDO at 16:12 EDT Tel [phone], Service support , CC: Aggie Vela DO; Sy Sharma MD Manufacturing Assembler: Signed ONCOLOGY VISIT REPORT Observed: 11/03/2017 Status: F Source: QUINNESEC 1:55 PM REPOSITORY [facility] [address] 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 His past medical history is notable for diabetes for over 20 years duration complicated with nephropathy and hypertension. He was started on oral iron supplement with no significant improvement in his blood counts. He is unaware of any external bleeding and had negative EGD and colonoscopy in 2018. His stools turned black only after he started taking oral iron. He has no first-degree relatives with malignancies. Though he is of [place] ancestry he himself has never traveled to [place] and to his knowledge never exposed or suffered from malaria. His anemia slowly progressed and he started erythrocyte stimulating agent therapy September 2017 Treatment: Procrit October 08, 2017- - Interval History I feel much better - Past Medical/Social History Social History Smoking Status Former smoker Review of Systems Constitutional:: Denies: Fever, Sweats, Weight loss, Appetite change, Chills Cardiovascular:: Denies: Chest pain, Palpitations, Dyspnea on exertion, Orthopnea, PND, Shortness of breath Respiratory: Denies: Cough, Hemoptysis, Shortness of Breath, Wheezing Neurological:: Denies: Headache, Dizziness, Visual changes, Tinnitus, Hearing loss Vital Signs Height 5 ft 8 in Weight: 97.522 kg Weight in Pounds 215.0 lbs Pulse Ox 99 - Physical Exam General: Alert, Oriented x3, No apparent distress HEENT: Atraumatic, PERRLA, EOMI, Normocephalic Oropharynx:: Dry mucosa Neck:: Supple, Trachea midline. Negative for: JVD, bilateral Cardiac:: Regular rate, Regular rhythm, Normal S1, Normal S2. Negative for: Murmur Lungs: Clear to auscultation, Excusion symmetrical. Negative for: Rhonchi, Wheezes Extremities:: Negative for: Cyanosis, Edema Neurological: Neuro grossly intact Skin:: Negative for: Lesions, Rash, Petechiae, Ecchymosis Psychiatric:: Appropriate affect, Euthymic Laboratory Data: Laboratory Tests WBC 6.5 (4.4-11.0) K/mm3 RBC 4.01 L (4.6-6.2) M/mm3 Hgb 10.6 L (13.0-16.5) g/dl Laboratory Tests Hgb 9.9 L 8.9 L 9.5 L Hct 30.3 L 26.9 L 29.6 L Hgb 10.6 L Hct 33.7 L Assessment and Plan 72-year-old gentleman with a slowly progressively worsening chronic anemia, symptomatic, most consistent with anemia of chronic kidney disease. His iron studies do not show any evidence of iron deficiency on oral iron supplementation. Erythrocyte stimulating agent therapy is now indicated as his anemia has naturally progress (hemoglobin less than 10 g and hematocrit less than 30% in absence of any iron deficiency). He started October 08, 2017. He has a rise in H AND H but still below target. He will be monitored with blood counts every 2 weeks prior to each Procrit injection with dose adjustments as needed. His fatigue is multifactorial including anemia, obstructive sleep apnea, overweight and other comorbid conditions under past medical history. His H AND H are rising consistent with a response to treatment. Plan: #1 continue oral iron supplementation 2 tablet daily. #2 Continue with Procrit 15,000 (down from 20,000 due to a rise of more than 1 g in 2 weeks) units subcu every 2 weeks reassess in 2 weeks #3 Follow-up closely with Dr. Sharma for optimum blood pressure control Impression and plan discussed. Medications: Prescriptions This Visit Medication Instructions Recorded Primary Care Provider: Sy Sharma Referring Provider: Sy Sharma 11/03/17 1355 <Electronically signed by Shania Hanks MD> Date Shania Hanks MD Cosigner Signature: Date (if applicable) CC: Sy Sharma MD CBC W/DIFF, AUTOMATED Collected: 11/03/2017 Status: F Source: RENEE 12:45 PM REPOSITORY Order Comment: Reason for Laboratory Test . TYPE CODE TESTS RESULT OUT OF RANGE REFERENCE UNITS LAB L100.1000 4.4-11.0 K/mm3 Normal WBC 6.5 LAB L100.1200 4.6-6.2 M/mm3 Low RBC 4.01 LAB L100.1300 13.0-16.5 g/dl Low HGB 10.6 LAB L100.1400 40-54 % Low HCT 33.7 LAB L100.1500 80-94 fL Normal MCV 84.0 LAB L100.1600 27.0-32.0 pg Low MCH 26.4 LAB L100.1700 32-36 g/gl Low MCHC 31.5 LAB L100.1810 11.6-14.6 % Normal RDW CV 14.2 LAB L100.1820 35.1-43.9 fl Normal RDW SD 43.6 LAB L100.1900 150-450 K/mm3 Normal PLT 171 LAB L100.2000 6.2-12.0 fl Normal MPV 10.0 LAB L100.2100 47-70 % Normal NEUT% 59.0 LAB L100.2200 19-41 % Normal LY% 25.7 LAB L100.2300 0-10 % Normal MONO% 7.0 LAB L100.2400 0-5 % High EO% 8.0 LAB L100.2500 0-1 % Normal BASO% 0.3 LAB L100.2550 0.0-0.9 % Normal IM GRAN % 0.000 Result Comment: IG% - Immature Granulocytes (promyelocytes, myelocytes and metamyelocytes) > 1% indicates that a LEFT SHIFT is Present. LAB L100.2620 2.0-7.7 X10 3/uL Normal Absolute Neut 3.8 LAB L100.2720 0.83-4.51 X10 3/ul Normal Absolute Lymph 1.66 Performed By: #### L100.0100 #### [facility] [address] [place], [address] ONCOLOGY VISIT REPORT Observed: 10/20/2017 Status: F Source: QUINNESEC 2:22 PM REPOSITORY [facility] [address] 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 His past medical history is notable for diabetes for over 20 years duration complicated with nephropathy and hypertension. He was started on oral iron supplement with no significant improvement in his blood counts. He is unaware of any external bleeding and had negative EGD and colonoscopy in 2018. His stools turned black only after he started taking oral iron. He has no first-degree relatives with malignancies. Though he is of [place] ancestry he himself has never traveled to [facility] and to his knowledge never exposed or suffered from malaria. His anemia slowly progressed and he started erythrocyte stimulating agent therapy September 2017 Treatment: Procrit October 08, 2017- - Interval History I feel a little bit better - Past Medical/Social History Social History Smoking Status Former smoker Review of Systems Constitutional:: Reports: Fatigue - A little bit better, - Cardiovascular:: Reports: Dyspnea on exertion, - - Blood pressure fluctuates up and down, usually up in doctor's visits. Denies: Chest pain, Palpitations, Orthopnea, PND, Shortness of breath Respiratory: Reports: Shortness of breath upon exertion Vital Signs Height 5 ft 8 in Weight: 96.343 kg Weight in Pounds 212.4 lbs Pulse Ox 98 - Physical Exam General: Alert, Oriented x3, No apparent distress Neck:: Supple, Trachea midline. Negative for: JVD, bilateral Cardiac:: Regular rate, Regular rhythm, Normal S1, Normal S2. Negative for: Murmur Lungs: Clear to auscultation, Excusion symmetrical. Negative for: Rhonchi, Wheezes Extremities:: Negative for: Cyanosis, Edema Laboratory Data: Laboratory Tests WBC 5.7 (4.4-11.0) K/mm3 RBC 3.54 L (4.6-6.2) M/mm3 Hgb 9.5 L (13.0-16.5) g/dl Laboratory Tests Hgb 9.9 L 8.9 L 9.5 L Hct 30.3 L 26.9 L 29.6 L Assessment and Plan 72-year-old gentleman with a slowly progressively worsening chronic anemia, symptomatic, most consistent with anemia of chronic kidney disease. His iron studies do not show any evidence of iron deficiency on oral iron supplementation. Erythrocyte stimulating agent therapy is now indicated as his anemia has naturally progress (hemoglobin less than 10 g and hematocrit less than 30% in absence of any iron deficiency). He started October 08, 2017. He has a rise in H AND H but still below target. He will be monitored with blood counts every 2 weeks prior to each Procrit injection with dose adjustments as needed. His fatigue is multifactorial including anemia, obstructive sleep apnea, overweight and other comorbid conditions under past medical history. Plan: #1 continue oral iron supplementation 2 tablet daily. #2 Continue with Procrit 20,000 units subcu every 2 weeks reassess in 2 weeks Impression and plan discussed. H Medications: Prescriptions This Visit Medication Instructions Recorded Primary Care Provider: Sy Sharma Referring Provider: Sy Sharma 10/20/17 1422 <Electronically signed by Shania Hanks MD> Date Shania Mills Signature: Date (if applicable) CC: CBC W/DIFF, AUTOMATED Collected: 10/20/2017 Status: F Source: RENEE 1:10 PM REPOSITORY Order Comment: Reason for Laboratory Test . TYPE CODE TESTS RESULT OUT OF RANGE REFERENCE UNITS LAB L100.1000 4.4-11.0 K/mm3 Normal WBC 5.7 LAB L100.1200 4.6-6.2 M/mm3 Low RBC 3.54 LAB L100.1300 13.0-16.5 g/dl Low HGB 9.5 LAB L100.1400 40-54 % Low HCT 29.6 LAB L100.1500 80-94 fL Normal MCV 83.6 LAB L100.1600 27.0-32.0 pg Low MCH 26.8 LAB L100.1700 32-36 g/gl Normal MCHC 32.1 LAB L100.1810 11.6-14.6 % Normal RDW CV 14.3 LAB L100.1820 35.1-43.9 fl Normal RDW SD 43.7 LAB L100.1900 150-450 K/mm3 Normal PLT 187 LAB L100.2000 6.2-12.0 fl Normal MPV 9.4 LAB L100.2100 47-70 % Normal NEUT% 61.5 LAB L100.2200 19-41 % Normal LY% 24.0 LAB L100.2300 0-10 % Normal MONO% 8.5 LAB L100.2400 0-5 % High EO% 5.6 LAB L100.2500 0-1 % Normal BASO% 0.4 LAB L100.2550 0.0-0.9 % Normal IM GRAN % 0.000 Result Comment: IG% - Immature Granulocytes (promyelocytes, myelocytes and metamyelocytes) > 1% indicates that a LEFT SHIFT is Present. LAB L100.2620 2.0-7.7 X10 3/uL Normal Absolute Neut 3.5 LAB L100.2720 0.83-4.51 X10 3/ul Normal Absolute Lymph 1.36 Performed By: #### L100.0100 #### [facility] [address] [place], [address] SURGERY VISIT REPORT Observed: 10/12/2017 Status: F Source: QUINNESEC 3:36 PM REPOSITORY [facility] [address] [place] [address] OFFICE VISIT Date of Service: 10/12/17 MR#: [id number] Acct: [id number] Name: JIMENEZ GANDARA Rep #: [id number] : 1945 Provider: Carlos Manuel Sorto MD Age/Sex: 72/M Location: [facility] Status: Signed Intake Vital Signs10/12/17 Height 5 ft 8 in 10/12/17 Weight: 208 lb 3 oz 10/12/17 Body Mass Index (BMI) 31.6 10/12/17 Blood Pressure 146/71 Intake Visit Reasons: Consult for Fistula vein mapping [facility] 10/04 Chief Complaint: Anemia, fatigue [employer] Required: No Is patient in pain?: No Allergies No Known Allergies Allergy (Verified 10/12/17 14:23) Medications Amlodipine [Norvasc] 10 mg PO DAILY 06/23/17 [History Confirmed 10/12/17] Atorvastatin Calcium [Lipitor] 40 mg PO QHS 06/23/17 [History Confirmed 10/12/17] Calcitriol 5 mcg PO DAILY 06/23/17 [History Confirmed 10/12/17] Dulaglutide [Trulicity] 1.5 mg SQ QWEEK 06/23/17 [History Confirmed 10/12/17] Ergocalciferol (Vitamin D2) 1.25 mg PO QMONTH 06/23/17 [History Confirmed 10/12/17] Ferrous Sulfate [Iron] 65 mg PO DAILY 06/23/17 [History Confirmed 10/12/17] Linagliptin [Tradjenta] 5 mg PO DAILY 06/23/17 [History Confirmed 10/12/17] Losartan Potassium 100 mg PO DAILY 06/23/17 [History Confirmed 10/12/17] Carvedilol [Coreg (Beta Samantha)] 12.5 mg PO BID 07/21/17 [History Confirmed 10/12/17] [facility] Medical History Chronic kidney disease, stage IV (severe) (Chronic) 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) DM2 (diabetes mellitus, type 2) (Chronic) Hypertensive urgency (Acute) ARF (acute renal failure) (Acute) HTN (hypertension) (Chronic) Pre-syncope (Acute) Anemia (Acute) Hyperlipidemia (Acute) Surgical History S/P colonoscopy (Acute) [place] teeth removed (Acute) Family History Father Pneumonia Mother CVA (cerebral vascular accident) Social History Smoking Status: Former smoker how long ago did patient quit smokin, 0.5pk/day second hand exposure: Yes alcohol intake: current alcohol intake frequency: a few times a month substance use type: does not use HPI HPI HPI: JIMENEZ GANDARA, is a 72 M who presents to the office today for surgical consultation regarding placement of arteriovenous fistula hemodialysis. The patient is referred by Dr. Mary Mix and a written copy of my surgical consult recommendations will be returned to her. The patient recently in July had a combined upper and lower endoscopy. This demonstrated some mild gastritis and some mild distal esophagitis. It demonstrated 4 polyps of the colon with 3 being adenomatous. He only had a fair bowel prep. It was recommended to him that if a follow-up colonoscopy at 1 year because of this and the number of polyps. Regarding his upper GI findings. Dr. Sharma had offered him medication but the patient declines because of the degree of other medications that he is already taking. That the patient is not particularly interested in pursuing creation of a fistula. He is of the mindset that he will be able to have a renal transplant just at the time that is required for when his kidneys fail. His is Milena At the [facility] on October 04, 2017 he had bilateral upper extremity vein mapping. This demonstrates that bilateral cephalic and basilic veins are patent. There was felt to be somewhat of a smaller left radial artery. He is right-hand dominant. ROS General General: Yes weight change and fatigue; no appetite, colon cancer, breast cancer or weakness HEENT HEENT: No difficulty swallowing, eye injury, eye surgery, swollen glands or hoarseness Endo Endocrine: Yes diabetes mellitus; no thyroid disease, thyroid cancer, Hair loss, heat intolerance or cold intolerance Musc Musculoskeletal: Yes back problems; no arthritis, rheumatoid arthritis, gout or joint pain Cardio Cardiovascular: Yes high blood pressure; no murmur, pacemaker, heart disease, atrial fibrillation, heart attack, heart stent, palpitations, shortness of breat with exertion or chest pain Psych Psychiatric: No depression, anxiety or hearing voices Resp Respiratory: No shortness of breath, No sleep apnea, No cough, No COPD, No asthma, No emphysema, No wheezing Gastro Gastrointestinal: No abdominal pain, No nausea or vomiting, No diarrhea, No constipation, No blood in stool, No acid reflux, No hemorrhoids, No ulcers, No gallbladder problem, No black,tarry stools Nathan Hematologic: No blood thinners, No blood disorders, No bleeding, Yes anemia, No blood clots Neuro Neurologic: No weakness Exam Const General: cooperative, healthy appearing Nutritional Appearance: overweight Orientation: alert, awake, oriented x3 HENMT Head: normal to inspection Eyes General: appearance normal, both eyes and all related structures Chest Chest palpation AND inspection: normal inspection of the chest Resp Effort AND Inspection: normal respiratory effort Auscultation: clear to auscultation bilaterally Cardio Rate: regular rate Rhythm: regular rhythm Heart Sounds: no murmurs GI Palpation: soft, no hepatosplenomegaly Auscultation: normal bowel sounds Musc Cervical Spine: normal cervical lordosis Neuro Cranial Nerves: CN's II-XI intact bilaterally Extrem Other: I inspected the left upper extremity with ultrasound. The cephalic vein of the forearm is patent and compressible. It appears to be of adequate diameter to the wrist. Appears to be of adequate depth. He has a 2+ left radial pulse. Hans test demonstrates adequate left hand ulnar flow. Psych Affect: normal affect Assessment AND Plan Problems 1. Chronic kidney disease, stage IV (severe) N18.4 Plan Today's appoint actually was an extensive discussion regarding the benefit, risks, alternatives to creation of an arteriovenous fistula. I have strongly recommended to him that he allow us to pursue a left forearm radial to cephalic arteriovenous fistula. We compared and contrasted elective surgical intervention versus emergent surgical techniques. He is well aware that if fistula we will require weeks for maturation. As noted in the history the patient is not desiring officially at this time and feels that he can achieve a renal transplant and completely avoid dialysis altogether. He is aware that he may require emergency placement of tunneled dialysis catheters. He is aware that the current arterial and venous structures that I could utilize for fistula could be destroyed by emergency hospitalization and interventions. He has had an opportunity to ask and have questions answered. At this time he is not interested in scheduling but will recontact us if he desires to proceed. I very much appreciate the kind opportunity of assisting with surgical care Cc: Dr. Mary Sorto M.D., F.A.C.S. Coding Level of Care Code Detailed, Low Diagnoses Chronic kidney disease, stage IV (severe) N18.4 10/12/17 1536 <Electronically signed by Carlos Manuel Sorto MD> Date Carlos Manuel Sorto MD Cosigner Signature: Date (if applicable) CC: Mary Mix DO; Sy Sharma MD PROGRESS Observed: 10/11/2017 Status: COMPLETED Source: RIO 1:41 PM [facility] REPOSITORY HNO ID: [id number] Author: Melissa Gan LPN Service: (none) Author Type: (none) Type: Progress Notes Filed: 10/11/2017 1:42 PM Note Text: Patient presents for Hepatitis B and Shingrix vaccines. Denies any problems at this time. Tolerated injections well. Melissa Gan LPN CNNURSE Observed: 10/11/2017 Status: COMPLETED Source: RIO 1:30 PM [facility] REPOSITORY Nurse Visit (FAMPWS) JIMENEZ GANDARA ([id number]) 1945 M TRN Date Time Provider Department 10/11/17 1:30 PM [place] [facility] During your visit today, we recorded the following information about you: Melissa Gan LPN 10/11/2017 1:42 PM Signed Patient presents for Hepatitis B and Shingrix vaccines. Denies any problems at this time. Tolerated injections well. Melissa Gan LPN Referring Provider: SELF [200] Allergies As of Date: 10/11/2017 Noted Allergy Reaction DUST 12/11/2004 Date Reviewed: 07/22/2017 Reviewed by: Samm (Ex Phys) Dennis - Fully Assessed Reason for Visit: Imm/Inj [58] Primary Visit Diagnosis:Need for vaccination [Z23] Prescriptions as of 10/11/2017 Sig: AMLODIPINE 5 MG-BENAZEPRIL 10* Take 1 capsule by mouth once * LOSARTAN 100 MG TABLET Take 100 mg by mouth once jeniffer* CARVEDILOL 12.5 MG TABLET Take 12.5 mg by mouth twice d* DULAGLUTIDE 1.5 MG/0.5 ML SUB* Inject subcutaneously. one ti* LINAGLIPTIN 5 MG TABLET Take by mouth once daily. CALCITRIOL ORAL Take 0.5 mg by mouth once jeniffer* VITAMIN D (WITH CALCIUM) ORAL Take 1.25 mg by mouth once ev* FERROUS SULFATE 325 MG (65 MG* Take 325 mg by mouth daily wi* ATORVASTATIN 40 MG TABLET Take 1 tablet by mouth daily * Problem List As Of Date 10/11/2017 Noted Resolved Controlled type 2 diabetes mellitus without com*INVALID FOR* ALLERGIC RHINITIS NOS [J30.9] INVALID FOR* Mixed hyperlipidemia [E78.2] INVALID FOR* Obesity due to excess calories with serious com*INVALID FOR* Bladder Neck Obstruction [N32.0] INVALID FOR* BPH w Urinary Obs/LUTS [N40.1] INVALID FOR* Impotence of Organic Origin [N52.9] INVALID FOR* Diabetes Mellitus [E11.9] INVALID FOR* Incontinence of urine [R32] INVALID FOR* Essential hypertension [I10] INVALID FOR* Pre-transplant evaluation for ESRD (end stage r*INVALID FOR* Secondary hypertension [I15.9] INVALID FOR* Encounter Status:Closed by MELISSA GAN LPN on 10/11/17 VENOUS DUPLEX UPPER Observed: 10/04/2017 Status: F Source: [place] EXTREMITY 5:47 PM REPOSITORY [facility] [place] [address] [address] Saphenous Vein Mapping, Bilat 10/04/17 1024 MR#: [id number] Acct: [id number] Name: JIMENEZ GANDARA Rep #: [id number] : 1945 72 From: Carlos Manuel Sorto MD Attending Dr: Mary Mix DO Status: REG CLI Ordering Dr: Mary Mix DO Date: 10/04/17 Location: CVS Sex: M C Admitted: Reason For Study: CKD stage 4 Right Arm Left Arm Right cephalic vein is compressible. Left cephalic vein is compressible. Right Cephalic Vein at the shoulder Left Cephalic Vein at the shoulder measures .319 x .318 cm. measures .283 x .279 cm. Right Cephalic Vein mid bicep measures .244 Left Cephalic Vein at mid bicep x .259 cm. measures .237 x .254 cm. Right Cephalic Vein above antecub Left Cephalic Vein above antecub measures .359 x .369 cm. measures .295 x .312 cm. Right Cephalic Vein below antecub Left Cephalic Vein below antecub measures .254 x .264 cm. measures .299 x .316 cm. Right Cephalic Vein in the forearm Left Cephalic Vein in the forearm measures .285 x .289 cm. measures .241 x .258 cm. Right Cephalic Vein at the wrist Left Cephalic Vein at the wrist measures .289 x .299 cm. measures .245 x .266 cm. Right basilic vein is compressible. Left basilic vein is compressible. Right Basilic Vein at the origin Basilic vein at origin measures .407 x .392 measures .443 x .473 cm. cm. Right Basilic Vein above antecub Basilic vein above antecub measures .439 measures .353 x .353 cm. x .412 cm. Right Basilic Vein below antecub Basilic vein below antecub measures .166 measures .085 x .085 cm. x .146 cm. Basilic V below this level is too small to Basilic V below this level is too small to assess. assess. Brachial artery 94.3 cm/s. Brachial artery 108 cm/s. Brachial artery .538 x .572 cm. Brachial artery .495 x .482 cm. Radial artery 130 cm/s. Radial artery 140 cm/s. Radial artery .280 x .295 cm. Radial artery .220 x .233 cm. < Interpretation Summary Patent and compressible cephalic and basilic veins bilaterally with dimensions as noted. Relatively small left radial artery. Ordering Physician: Mary Mix Performed By: Mariusz Sarmiento RVT Reason For Study: CKD stage 4 < Interpretation Summary Patent and compressible cephalic and basilic veins bilaterally with dimensions as noted. Relatively small left radial artery. Ordering Physician: Mary Mix Performed By: Mariusz Sarmiento RVT 10/04/17 174 Date Carlos Manuel Sorto MD CC: Mary Mix DO; Sy Sharma MD Date Dictated: 10/04/17 1024 Date Transcribed: 10/04/171746 Manufacturing Assembler: Signed ONCOLOGY VISIT REPORT Observed: 09/29/2017 Status: F Source: RENEE 1:49 PM REPOSITORY [facility] [address] [place] [address] OFFICE VISIT Date of Service: 09/29/17 1342 MR#: [id number] Acct: [id number] Name: JIMENEZ GANDARA Rep #: [id number] : 1945 From: Shania Hanks MD Age/Sex: 72/M Location: D Status: Signed - Problem List (1) Anemia of chronic renal failure, stage 4 (severe) Status: Chronic - Date of Service Date of Service:: 09/29/17 - Chief Complaint Anemia, fatigue - History of Present Illness 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 His past medical history is notable for diabetes for over 20 years duration complicated with nephropathy and hypertension. He was started on oral iron supplement with no significant improvement in his blood counts. He is unaware of any external bleeding and had negative EGD and colonoscopy in 2018. His stools turned black only after he started taking oral iron. He has no first-degree relatives with malignancies. Though he is of [place] ancestry he himself has never traveled to [facility] and to his knowledge never exposed or suffered from malaria. - Interval History Slowly progressive decline in level of energy Is being followed by nephrology and has been advised that dialysis and the need for a dialysis fistula are to be considered in the near future - Past Medical/Social History Social History Smoking Status Former smoker Review of Systems Constitutional:: Reports: Fatigue. Denies: Fever, Sweats, Weight loss, Appetite change, Chills Cardiovascular:: Denies: Chest pain, Palpitations, Dyspnea on exertion, Orthopnea, PND, Shortness of breath Respiratory: Denies: Cough, Hemoptysis, Shortness of Breath, Wheezing Gastrointestinal:: Denies: Abdominal pain, Nausea, Vomiting, Diarrhea, Constipation, Hematochezia Genitourinary: Denies: Dysuria, Hematuria, 15, Flank pain Musculoskeletal:: Denies: Back pain, Myalgia, Arthralgia Skin: Denies: Rash, Skin Changes, Wounds Neurological:: Denies: Headache, Dizziness, Visual changes, Tinnitus, Hearing loss Psychiatric: Denies: Anxiety, Depression, Homicidal Ideations, Suicidal Ideations Vital Signs Height 5 ft 8 in Weight: 96.343 kg Weight in Pounds 212.4 lbs Pulse Ox 97 - Physical Exam General: Alert, Oriented x3, No apparent distress, - - ECOG 1 Pale . HEENT: Atraumatic, PERRLA, EOMI, Normocephalic Oropharynx:: Dry mucosa Neck:: Supple, Trachea midline. Negative for: JVD, bilateral Cardiac:: Regular rate, Regular rhythm, Normal S1, Normal S2. Negative for: Murmur Lungs: Clear to auscultation, Excusion symmetrical. Negative for: Rhonchi, Wheezes Abdomen:: Soft, Non-tender, Non-distended. Negative for: Hepatosplenomegaly Extremities:: Negative for: Cyanosis, Edema Neurological: Neuro grossly intact Skin:: Negative for: Lesions, Rash, Petechiae, Ecchymosis Psychiatric:: Appropriate affect, Euthymic Lymphatics:: Axillary lymphadenopathy. Negative for: Cervical lymphadenopathy, Supraclavicular lymphadenopathy Laboratory Data: Laboratory Tests Assessment and Plan 72-year-old gentleman with a slowly progressively worsening chronic anemia, symptomatic, most consistent with anemia of chronic kidney disease. His iron studies do not show any evidence of iron deficiency on oral iron supplementation. Erythrocyte stimulating agent therapy is now indicated as his anemia has naturally progress (hemoglobin less than 10 g and hematocrit less than 30% in absence of any iron deficiency) His fatigue is multifactorial including anemia, obstructive sleep apnea, overweight and other comorbid conditions under past medical history. Plan: #1 continue oral iron supplementation 2 tablet daily. #2 Obtain authorization and start erythrocyte stimulating agent therapy, Aranesp starting dose 60 mcg subcu every 4 weeks. Will be monitored with blood counts every 4 weeks. Will oversee his ESAT until he goes on dialysis at which time it is usually managed by nephrology. Impression and plan discussed. He was given printed patient educational material about erythropoietin which he reported he read and consents to therapy. Medications: Prescriptions This Visit Medication Instructions Recorded Primary Care Provider: Sy Sharma Referring Provider: Sy Sharma 09/29/17 7955 <Electronically signed by Shania Hanks MD> Date Shania Hanks MD Cosigner Signature: Date (if applicable) CC: Sy Sharma MD PROTEIN+CREATININE Collected: Status: F Source: RENEE RATIO,URINE 09/23/2017 12:45 PM REPOSITORY TYPE CODE TESTS RESULT OUT OF RANGE REFERENCE UNITS LAB L501.1200 NO RANGE EST. mg/dL Normal UR CREAT 92.30 LAB L501.1930 <11.9 mg/dL High 256.6 PROTEIN,UR.R AN. LAB L501.1940 0-200 mg/g CRE High PROT:CRE 2780 RATIO Performed By: #### L501.0900 #### [facility] [address] [facility]. [place], [place], [address] PTHIN Collected: 09/23/2017 Status: F Source: RENEE 12:45 PM REPOSITORY Order Comment: [facility] PROCRE CBC BAKARI WANTS [facility] ERYTHROPROTIEN CBC TYPE CODE TESTS RESULT OUT OF RANGE REFERENCE UNITS LAB L509.1000 18.4-80.1 pg/mL High PTHIN 97.1 Performed By: #### L509.1000 #### [facility] [address] [place], [place], [address] COMPREHENSIVE METABOLIC Collected: 09/23/2017 Status: F Source: RENEE PROFIL 12:40 PM REPOSITORY Order Comment: Reason for Laboratory Test ,. Reason for Laboratory Test . [facility] PROCRE CBC BAKARI WANTS [facility] ERYTHROPROTIEN CBC TYPE CODE TESTS RESULT OUT OF RANGE REFERENCE UNITS LAB L501.0100 74-106 mg/dL High GLU 154 Result Comment: Fasting Glucose result greater than or equal to 126 mg/dL suggests DIABETES MELLITUS per A.D.A. criteria. Please note revised GLUCOSE reference range effective 2017. LAB L501.1000 7-18 mg/dL High BUN 45 LAB L501.1100 0.70-1.30 mg/dL High CREAT,SERUM 3.64 Result Comment: The validity of the calculated GFR AND GFRAA in patients over 70 years has not been determined. Clinical correlation is essential. LAB L501.1110 >60 mL/min Low EST GFR 18 Result Comment: Non- GFR Calc LAB L501.1115 >60 mL/min Low EST GFR - AA 21 Result Comment: GFR Calc LAB L501.1300 10-20 RATIO Normal BUN/CRE 12.4 LAB L501.1500 6.4-8.2 g/dL T Normal PROT 7.3 LAB L501.1800 3.2-5.0 g/dL Normal ALB 3.2 LAB L501.1950 2.2-4.2 g/dL Normal GLOB 4.1 LAB L501.2000 0.9-2.4 RATIO Low A/G 0.8 LAB L501.2200 8.5-10.1 mg/dL Low CA 8.3 LAB L501.4100 15-37 U/L Low AST 13 LAB L501.4305 45-117 U/L Normal ALK P 46 LAB L501.4405 16-61 U/L Normal ALT 18 LAB L501.4600 0.20-1.00 mg/dL T Normal BILI 0.20 LAB L501.5300 136-145 mmol/L NA Normal 138 LAB L501.5600 3.5-5.1 mmol/L High K 5.3 LAB L501.5900 98-107 mmol/L CL Normal 107 LAB L501.6100 21.0-32.0 mmol/L Normal CO2 24.0 LAB L501.6200 5-15 Normal GAP 7 Performed By: #### L500.4050, L501.2300, L503.6030, L503.6550 #### [facility] [address] [place], [address] #### L3100.1350 #### [facility] (refer to report for specific site) refer to report for address and phone number PHOSPHORUS Collected: 09/23/2017 Status: F Source: QUINNESEC 12:40 PM REPOSITORY Order Comment: Reason for Laboratory Test ,. Reason for Laboratory Test . WANTS THE [facility] IBC PTH PROCRE CBC BAKARI [facility]S [facility] ERYTHROPROTIEN CBC TYPE CODE TESTS RESULT OUT OF RANGE REFERENCE UNITS LAB L501.2300 2.5-4.9 mg/dL Normal PHOS 4.1 Performed By: #### L500.4050, L501.2300, L503.6030, L503.6550 #### [facility] [address] [place], [place], [id number] #### L3100.1350 #### [facility] (refer to report for specific site) refer to report for address and phone number IRON+IRON BINDING Collected: 09/23/2017 Status: F Source: [facility] 12:40 PM REPOSITORY Order Comment: Reason for Laboratory Test ,. Reason for Laboratory Test . [facility] CBC BAKARI [facility]S [facility] ERYTHROPROTIEN CBC TYPE CODE TESTS RESULT OUT OF RANGE REFERENCE UNITS LAB L503.6075 250-450 ug/dL Low TIBC 215 LAB L503.6150 65-175 ug/dL IRON Normal 79 LAB L503.6250 15.0-55.0 % IRON Normal SATURATION 36.7 Performed By: #### L500.4050, L501.2300, L503.6030, L503.6550 #### [facility] [address] [facility] [facility] [place], [place], [id number] #### L3100.1350 #### [facility] (refer to report for specific site) refer to report for address and phone number FERRITIN Collected: 09/23/2017 Status: F Source: QUINNESEC 12:40 PM REPOSITORY Order Comment: Reason for Laboratory Test ,. Reason for Laboratory Test . [facility] CBC BAKARI [facility]S [facility] ERYTHROPROTIEN CBC TYPE CODE TESTS RESULT OUT OF RANGE REFERENCE UNITS LAB L503.6550 26-388 ng/mL Normal FERRITIN 161 Performed By: #### L500.4050, L501.2300, L503.6030, L503.6550 #### [facility] [address] [facility] [facility] [place], [place], [address] #### L3100.1350 #### [facility] (refer to report for specific site) refer to report for address and phone number ERYTHROPOIETIN Collected: 09/23/2017 Status: F Source: QUINNESEC 12:40 PM REPOSITORY Order Comment: Reason for Laboratory Test . [facility] CBC BAKARI WANTS [facility] ERYTHROPROTIEN CBC TYPE CODE TESTS RESULT OUT OF RANGE REFERENCE UNITS LAB L3100.1350 2.6-18.5 mIU/mL Normal ERYTHROP 7.8 [id number] Result Comment: [employer] DxI 800 Immunoassay System Performed at: [employer] [id number] Oil Lease Operator: Jason Riojas PhD, Phone: [phone] Performed By: #### L500.4050, L501.2300, L503.6030, L503.8450 #### [facility] [address] [facility] [facility] [facility] [place], [place], [address] #### L3100.1350 #### [facility] (refer to report for specific site) refer to report for address and phone number CBC W/DIFF, AUTOMATED Collected: 09/23/2017 Status: F Source: QUINNESEC 12:40 PM REPOSITORY Order Comment: Reason for Laboratory Test . [facility] CBC BAKARI WANTS [facility] ERYTHROPROTIEN CBC TYPE CODE TESTS RESULT OUT OF RANGE REFERENCE UNITS LAB L100.1000 4.4-11.0 K/mm3 Normal WBC 7.2 LAB L100.1200 4.6-6.2 M/mm3 Low RBC 3.32 LAB L100.1300 13.0-16.5 g/dl Low HGB 8.9 LAB L100.1400 40-54 % Low HCT 26.9 LAB L100.1500 80-94 fL Normal MCV 81.0 LAB L100.1600 27.0-32.0 pg Low MCH 26.8 LAB L100.1700 32-36 g/gl Normal MCHC 33.1 LAB L100.1810 11.6-14.6 % Normal RDW CV 13.7 LAB L100.1820 35.1-43.9 fl Normal RDW SD 40.8 LAB L100.1900 150-450 K/mm3 Normal PLT 187 LAB L100.2000 6.2-12.0 fl Normal MPV 10.4 LAB L100.2100 47-70 % Normal NEUT% 65.2 LAB L100.2200 19-41 % Normal LY% 22.6 LAB L100.2300 0-10 % Normal MONO% 5.2 LAB L100.2400 0-5 % High EO% 6.7 LAB L100.2500 0-1 % Normal BASO% 0.3 LAB L100.2550 0.0-0.9 % Normal IM GRAN % 0.000 Result Comment: IG% - Immature Granulocytes (promyelocytes, myelocytes and metamyelocytes) > 1% indicates that a LEFT SHIFT is Present. LAB L100.2620 2.0-7.7 X10 3/uL Normal Absolute Neut 4.7 LAB L100.2720 0.83-4.51 X10 3/ul Normal Absolute Lymph 1.62 Performed By: #### L100.0100 #### [facility] [address] [facility] [place], [address] OPERATIVE REPORT Observed: 07/27/2017 Status: F Source: QUINNESEC 10:46 AM REPOSITORY [facility] Medical Records Department [address] [place] [address] Operative Report 07/27/17 1039 MR#: [id number] Acct: [id number] Name: JIMENEZ GANDARA Rep #: [id number] : 1945 72 From: Carlos Manuel Sorto MD PCP: Zachary JOSEPH,Sy Chi Status: [facility] Y Location: [place] [address] Problem List (1) Anemia of chronic renal failure, stage 4 (severe) Status: Chronic (2) Screening for intestinal cancer Status: Acute Report of Operation Date of Procedure: 07/27/17 Pre-Operative Diagnosis: Chronic anemia, screening for intestinal cancer Post-Operative Diagnosis: Small hiatal hernia, minimal distal esophagitis, minimal antral erythema. Elongated tortuous colon, small sessile polyps of the hepatic flexure and mid transverse colon and splenic flexure and rectum. Minimal sigmoid diverticulosis Surgery/Procedure Performed:: Esophagogastroduodenoscopy with cold forceps biopsy. Colonoscopy with hot snare polypectomy Description of Surgical Findings:: Amount and informed consent was obtained. 72-year-old gentleman was taken to the endoscopy suite. He is being evaluated for renal transplantation. His oropharynx anesthetized with Cetacaine. He was placed in left lateral decubitus position. He underwent monitored anesthesia care. Flexible gastroscope was inserted in the esophageal inlet. The proximal mid distal esophagus not remarkable. There is a very minimal amount of irritation within a small hiatal hernia in the distal esophagus at 40 cm e.g. junction. Scope was advanced in the stomach. A very minimal amount of antral erythema noted. Scope was advanced through the pylorus. The first and second portion of the duodenum were inspected this was not remarkable. The scope was gone back to the stomach retroflexed the EG junction and cardia were inspected. The small hiatal hernia noted. Scope was placed back in antegrade viewing position. Greater and lesser curvatures were inspected and the scope was advanced back down to the antrum. Cold forceps antral biopsy obtained. Excess fluid and air was aspirated free. The scope was withdrawn to the distal esophagus with a similar biopsy was obtained. Excess fluid nurse aspirated free the procedure completed he tolerated it well. He was kept in left loud skin decubitus position. Digital rectal exam demonstrated lax anal tone 2+ smooth prostate no mass lesions. Flexible colonoscope was in the rectum advanced with tortuous sigmoid colon with some effort was advanced to the transverse colon and with transabdominal pressure is advanced to the cecum. The cecum ileocecal valve area was achieved. Bowel prep was fair to good there was liquid stool located throughout the colon which required aspiration in in sections could not be completely aspirated because of his viscosity and plugging of the scope. I felt that I had adequate though not superlative view of the colon. The scope was carefully withdrawn from the ascending colon transverse colon descending colon and sigmoid. There were small sessile polyps of the hepatic flexure and mid transverse colon and splenic flexure and rectum. Photographs were obtained. All of these were less than a centimeter. They were all resected using hot snare cautery. They were retrieved. Hemostasis was nicely intact. There is minimal sigmoid diverticulosis. The scope was retroflexed within the rectum some mild hemorrhoidal changes noted no active bleeding. Excess fluid and air was aspirated free the procedure completed with the patient tolerating it well. Impression Very minimal distal esophagitis with small hiatal hernia. Minimal antral erythema. 4 small sessile polyps of the hepatic flexure and mid transverse colon and splenic flexure and rectum. All clinically benign. Diverticulosis. Internal hemorrhoids. The patient will be notified of pathology results as they become available. Because of the number of polyps and lack of absolutely perfect bowel prep I will recommend follow-up colonoscopy at 1 year. The patient has never had a previous colonoscopy. Cc: Dr. Sharma The upper scope exam was started at 1007 and completed at 1011. The colonoscopy was initiated at 1014. The cecum was reached at 1020. The procedure was completed at 1036. Carlos Manuel Sorto M.D., F.A.C.S. Type of Anesthesia:: MAC Anesthesiologist: Mo Arizmendi 07/27/17 1046 <Electronically signed by Carlos Manuel Sorto MD> Date Carlos Manuel Sorto MD CC: Carlos Manuel Sorto MD; yS Sharma MD Signed BEDSIDE GLUCOSE Collected: 07/27/2017 Status: F Source: RENEE 8:24 AM REPOSITORY TYPE CODE TESTS RESULT OUT OF REFERENCE UNITS RANGE LAB L501.080 70-110 mg/dL High BEDSIDE GLU 122 Result Comment: MANAGEMENT OF PATIENT CARE PER NURSING PROTOCOL Performed By: #### L501.080 #### [facility] Point of Care [address] [place] [address] EGD ([facility] SITE) Observed: 07/27/2017 Status: F Source: RENEE 12:00 AM REPOSITORY Patient: JIMENEZ GANDARA : 1945 (72/M) Acct Num: [id number] Phys: Noreen JOSEPH,Carlos Manuel Unit Num: [id number] Loc: EN Specimen: [id number] Received: 07/27/17 - 1130 Spec Type: EGD BIOPSY TISSUES TISSUES: A. Gastric mucous membrane B. Esophageal mucous membrane C. COLON BIOPSY D. Transverse colon E. SPLENIC FLEXURE F. Rectum, NOS COMMENT A. The results of immunohistochemistry for Helicobacter pylori will be reported separately ([id number]). B. Glandular epithelium is not represented in the biopsy. Clinical correlation is suggested. GROSS DESCRIPTION A - Received in fixative is one container labeled with the patient's name and designated antral biopsy. The specimen consists of one irregular fragment of light acosta soft tissue that measures 0.4 x 0.4 x 0.1 cm. The specimen is totally submitted in one cassette. B - Received in fixative is one container labeled with the patient's name and designated distal esophagus. The specimen consists of one irregular fragment of light acosta soft tissue that measures 0.5 x 0.3 x 0.1 cm. The specimen is totally submitted in one cassette. C - Received in fixative is one container labeled with the patient's name and designated hepatic flexure polyp. The specimen consists of two irregular fragments of light acosta soft tissue that in aggregate measure 0.7 x 0.3 x 0.2 cm. The specimen is totally submitted in one cassette. D - Received in fixative is one container labeled with the patient's name and designated mid transverse polyp. The specimen consists of one irregular fragment of light acosta soft tissue that measures 0.3 x 0.3 x 0.2 cm. The specimen is totally submitted in one cassette. E - Received in fixative is one container labeled with the patient's name and designated splenic flexure polyp. The specimen consists of multiple irregular fragments of light acosta soft tissue that in aggregate measure 1.5 x 0.5 x 0.1 cm. The specimen is totally submitted in one cassette. F - Received in fixative is one container labeled with the patient's name and designated rectal polyp. The specimen consists of multiple irregular fragments of light acosta soft tissue that in aggregate measure 1 x 0.3 x 0.1 cm. The specimen is totally submitted in one cassette. / SJ:rg 07/27/17 TC:5 CPT: 98246 x6 HEADER OPERATION: EGD and colonoscopy PRE-OP DIAGNOSIS: Anemia TISSUE SUBMITTED: A Antral biopsy, B Distal esophagus biopsy, C Hepatic flexure polyp, D Mid transverse polyp, E Splenic flexure polyp, F Rectal polyp MICROSCOPIC DESCRIPTION Slides are reviewed. A. Sections show small collections and groups of plasma cells in the mucosa. Active inflammation is not present. These findings are consistent with mild chronic gastritis. MICROSCOPIC DIAGNOSIS A. Gastric antrum, biopsy: Mild chronic gastritis. B. Distal esophagus, biopsy: Fragments of benign squamous mucosa with focal changes of reflux. C. Colonic polyp at hepatic flexure, biopsy: Fragments of tubular adenoma. D. Mid transverse colon polyp, biopsy: Tubular adenoma. E. Colonic polyp at splenic flexure, biopsy: Fragments of tubular adenoma. F. Rectal polyp, biopsy: Hyperplastic polyp. Fecal debris. AM:taniya 07/28/17 Signed Matt Yesika 07/28/17 <signature on file> Performed By: #### PEGD #### [facility] [address] [place] [address], [address] IMMUNOHISTOCHEMISTRY Observed: 07/27/2017 Status: F Source: QUINNESEC 12:00 [facility] REPOSITORY Patient: JIMENEZ GANDARA : 1945 (72/M) Acct Num: [id number] Phys: Noreen JOSEPH,Carlos Manuel Unit Num: [id number] Loc: EN Specimen: [id number] Received: 07/28/17 - 3 Spec Type: IMMUNO TISSUES TISSUES: A. Stomach, NOS SPECIMEN INFORMATION: Tissue Source: A Antral biopsy Clinical Info: Anemia Specimen Number: [id number] CPT code: 61049 METHODOLOGY: Deparaffinized sections of prefer/formalin-fixed tissue or PAP/DQ stained slides are incubated with monoclonal/polyclonal antibodies/oligonucleotide probes. Localization is made via biotin free immunoperoxidase method. Appropriate controls are performed and reacted as expected. Results on target cell population are indicated in the following table: RESULTS: ANTIBODY / CLONE RESULT Block A H Pylori (polyclonal) negative These tests were developed and their performance characteristics determined by [facility]. They may not have been cleared or approved by the U.S. Food and Drug Administration. The FDA has determined that such clearance or approval is not necessary. INTERPRETATION: A. Antral biopsy: Negative for Helicobacter pylori organisms. AM:taniya 07/29/17 [facility] [address] [address] Signed Matt Celisih 07/29/17 <signature on file> Performed By: #### PIMM #### [facility] [address] [place], [address] CBC Collected: 07/22/2017 Status: F Source: RIO 11:32 AM [facility] REPOSITORY TYPE CODE TESTS RESULT OUT OF REFERENCE UNITS RANGE LAB WBC 3.70-11.00 k/uL WBC 7.54 LAB RBC 4.20-6.00 m/uL Low RBC 3.64 LAB HGB 13.0-17.0 g/dL Low Hemoglobin 9.7 LAB HCT 39.0-51.0 % Low Hematocrit 30.0 LAB MCV 80.0-100.0 fL MCV 82.4 LAB MCH 26.0-34.0 pG MCH 26.6 LAB MCHC 30.5-36.0 g/dL MCHC 32.3 LAB RDWCV 11.5-15.0 % RDW-CV 14.3 LAB PLTCT 150-400 k/uL Platelet Count 200 LAB MPV 9.0-12.7 fL MPV 11.7 LAB ABSNUC <0.01 k/uL Absolute nRBC <0.01 Performed By: #### CBC, CMP #### [facility] [address] [place], [place] [address] COMP METABOLIC PANEL Collected: 07/22/2017 Status: F Source: RIO 11:32 AM [facility] REPOSITORY TYPE CODE TESTS RESULT OUT OF REFERENCE UNITS RANGE LAB TP 6.3-8.0 g/dL Protein, Total 6.9 LAB ALB 3.9-4.9 g/dL Albumin 3.9 LAB CA 8.5-10.2 mg/dL Calcium, Total 9.2 LAB TBIL 0.2-1.3 mg/dL Bilirubin, Total 0.3 LAB ALKP 36-108 U/L Alkaline Phosphatase 54 LAB AST 14-40 U/L AST 16 LAB GLU 74-99 mg/dL Glucose High 199 Result Comment: The [place] [employer] (ADA) provides guidance for cutoff values for fasting glucose and random glucose. The ADA defines fasting as no caloric intake for at least 8 hours. Fas ting plasma glucose results between 100 to 125 mg/dL indicate increased risk for diabetes (prediabetes). Fasting plasma glucose results greater than or equal to 126 mg/dL meet the criteria for diagnosis of diabetes. In the absence of unequivocal hyperglycemia, results should be confirmed by repeat testing. In a patient with classic symptoms of hyperglycemia or hyperglycemic crisis, random plasma glucose results greater than or equal to 200 mg/dL meet the criteria for diagnosis of diabetes. Reference: Standards of Medical Care in Diabetes 2016, [place] [employer]. Diabetes Care. 2016.39(Suppl 1). LAB BUN 9-24 mg/dL BUN High 43 LAB CRET 0.73-1.22 mg/dL Creatinine High 3.62 LAB NA 136-144 mmol/L Sodium 137 LAB K 3.7-5.1 mmol/L Potassium High 5.3 LAB CL 97-105 mmol/L Chloride 102 LAB CO2 22-30 mmol/L CO2 23 LAB AGAP 9-18 mmol/L Anion Gap 12 LAB ALT 10-54 U/L ALT 10 LAB GFRAA eGFR- Amer. 20 LAB GFRNAA . eGFR-All Other Races 17 Result Comment: eGFR (Estimated GFR) Units of measure: mL/min/1.73 meters squared eGFR is derived from the reexpressed MDRD Study equation using the following parameters: serum creatinine, age, gender and race. The creatinine assay has been calibrated to be traceable to IDMS. An eGFR <60 mL/min/1.73m2 for >3 months is consistent with chronic kidney disease. Refer to KDOQI guidelines for clinical interpretation. In patients with unstable renal function, e.g. those with acute kidney injury, the eGFR may not accurately reflect actual GFR. Performed By: #### CBC, CMP #### [facility] [address] [place] [address] HEPATITIS A AB TOTAL Collected: 07/22/2017 Status: F Source: RIO 11:32 AM [facility] REPOSITORY TYPE CODE TESTS RESULT OUT OF RANGE REFERENCE UNITS LAB AHAVT Negative Abnormal Hepatitis A Ab Positive Alert Total Performed By: #### AHAVT, TOXG #### [facility] [employer] [address] [place] [address] #### TCAIGG #### [facility] [address] [place] [address] [phone] TOXOPLASMA IGG AB Collected: 07/22/2017 Status: F Source: [address] REPOSITORY TYPE CODE TESTS RESULT OUT OF REFERENCE UNITS RANGE LAB TOXGQL Negative Toxo Negative IgG Qual Result Comment: Absence of detectable Toxoplasma gondii IgG antibodies. A negative result does not rule out acute infection. The test usually scores negative in infected patients during the incubation period and the early stages of infection. If exposure to Toxoplasma gondii is suspected despite a negative finding, a second sample should be collected and tested one or two weeks later. LAB TOXOG IU/mL Toxoplasma IgG Ab <3.0 Result Comment: IU/mL values are interpreted as follows: Negative <7.2 Equivocal >=7.2 and <8.8 Positive >=8.8 The magnitude of the measured result is not indicative of the amount of antibody present. The concentrations of anti-Toxoplasma gondii IgG in a given specimen determined with assays from different [facility] can vary due to differences in assay methods and reagent specificity. Performed By: #### AHAVT, TOXG #### [facility] [address] [place] [id number] #### TCAIGG #### [facility] [address] [place] [address] [phone] TRYPAN CRUZI IGG Collected: 07/22/2017 Status: F Source: [address] REPOSITORY TYPE CODE TESTS RESULT OUT OF REFERENCE UNITS RANGE LAB TCABIG <=1.0 IV TRYPAN 0.3 CRUZI AB IGG Result Comment: (NOTE) INTERPRETIVE INFORMATION: Trypanosoma cruzi Ab, IgG 1.0 IV or less......Negative - No significant level of Trypanosoma cruzi IgG antibody detected. 1.1 IV..............Equivocal - Questionable presence of Trypanosoma cruzi IgG antibody detected. Repeat testing in 10-14 days may be helpful. 1.2 IV or greater...Positive - IgG antibodies to Trypanosoma cruzi detected, which may suggest current or past infection. This assay should not be used for blood donor screening or associated re-entry protocols, or for screening Human Cell and Cellular Tissue-Based Products (HCT/Ps). According to the CDC, at least two different serologic tests should be used to make the laboratory diagnosis of chronic Chagas Disease, as no single serologic test is sufficiently sensitive and specific. Performed by [employer], [address] [place] [address] [email or web address], Saleem Blackman MD, Lab. Director Performed By: #### AHAVT, TOXG #### [facility] [address] [place], [place] [address] #### TCAIGG #### [facility] [address] [place] [address] [phone] PROGRESS Observed: 07/22/2017 Status: COMPLETED Source: RIO 10:05 AM [facility] REPOSITORY HNO ID: [id number] Author: Nancy Olguin Service: (none) Author Type: Physician Type: Progress Notes Filed: 07/27/2017 6:22 PM Note Text: INFECTIOUS DISEASE KIDNEY PRETRANSPLANT EVALUATION SERVICE DATE: 07/22/2017 Mr.Premnauth Gandara is a 72 year old male being evaluated for kidney transplantation. Our opinion is requested by Dr. Perez. Our findings and recommendations will be communicated through the shared medical record or by letter through [place] mail. Indication for Transplantation: DM and hypertension Retransplantation: no Need for Renal Dialysis: no Diabetes: yes NIDDM Subjective HPI: Mr. Gandara is a 72 year old man, originally from [facility] [place] who is presenting for ID clearance in anticipation of a kidney transplant. He has a history of CKD stage IV in the setting of diabetic nephropathy and uncontrolled HTN and denies a history of recurrent infections. He feels quite well currently and has not experienced any fevers, chills, night sweats, cough, sputum production, abdominal pain or diarrhea. He was born in [place] and moved [place] the [place] in 1978. He denies a history of malaria or other infections while living there. He believes that he had a negative PPD prior to moving to the and denies a history of known exposure to T.B. He has never been homeless or incarcerated. 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 losartan (COZAAR) 100 mg tablet Take 100 mg by mouth once daily. carvedilol (COREG) 12.5 mg tablet Take 12.5 mg by mouth twice daily with meals. dulaglutide (TRULICITY) 1.5 mg/0.5 mL pnij Inject subcutaneously. one time weekly linagliptin (TRADJENTA) 5 mg tab Take by mouth once daily. CALCITRIOL ORAL Take 0.5 mg by mouth once daily. CALCIUM PHOSPHATE DIBAS/VIT D3 (VITAMIN D, WITH CALCIUM, ORAL) Take 1.25 mg by mouth once every month. ferrous sulfate (FEOSOL) 325 mg (65 mg iron) tablet Take 325 mg by mouth daily with breakfast. atorvastatin (LIPITOR) 40 mg tablet Take 1 tablet by mouth daily at bedtime. For cholesterol. No current facility-administered medications on file prior to visit. PAST MEDICAL HISTORY Diagnosis Date - Allergic rhinitis, cause unspecified Allergic rhinitis - Diabetes mellitus without mention of complication Diabetes mellitus - High cholesterol - Hypertension - Mixed hyperlipidemia Hyperlipidemia PAST SURGICAL HISTORY Procedure Laterality Date - OTHER wisdom teeth removal Social History Marital status: Spouse name: Years of education: Number of children: Social History Main Topics Smoking status: Former Smoker Packs/day: 0.00 Years: 0.00 Smokeless status: Never Used Comment: Quit 10 years ago Alcohol use: Yes Comment: ocassionally Drug use: No Sexual activity: Yes Partners with: Female FAMILY HISTORY Problem Relation Age of Onset - Stroke Mother - Hypertension Father ALLERGIES Allergen Reactions - Dust Immunization History Administered Date(s) Administered Pneumococcal-13 Vac Conjugate 06/25/2015 Pneumovax 03/23/2012 03/23/2017 Tdap (Age 7+) 05/27/2009 Zostavax 03/23/2017 Objective REVIEW OF SYSTEMS: As per HPI - otherwise negative PHYSICAL EXAMINATION: BP 164/71 Pulse 67 Temp 36.7 ?C (98.1 ?F) (Temporal Artery) Resp 20 Ht 172.7 cm (5' 8) Wt 97.5 kg (215 lb) SpO2 99% BMI 32.69 kg/m2 Gen: Pleasant well-nourished and well-developed [place] African man who is conversing comfortably HEENT: PERRL, EOMI, anicteric Neck: supple, no cervical LAD CVS: RRR, S1S2 normal, no m/r/g Resp: breathing comfortably on RA, CTABl GI: soft, non-tender MSKT: no joint swelling/warmth/erythema Skin: no rashes or other lesions appreciated Ext: no LE edema LABS: 07/22/17 CMP: 137/5.3/102/23/43/3.62; LFTs wnl CBC WBC 7.54 Hgb 9.7 Plts 200 Cultures: None Serology: Component Latest Ref Rng AND Units 06/28/2017 Hep B Core Ab, Total Negative Negative Hep C Antibody IA Negative Negative Hep B Surface Ag Negative Negative Hep B Surface Ab, Qual Negative Negative TB Result Negative Negative TB Antigen Response <0.35 IU/mL 0.01 Mitogen Response >0.49 IU/mL >10.00 TB Gamma Interpretation No evidence of current or previous infection with Mycobacterium tuberculosis. CMV IgG Qualitative Negative Positive (A) CMV Antibody, IgG U/mL 1.10 Measles Antibody, IGG Qualitative Negative Positive (A) Measles Antibody, IgG AU/mL >300.0 Syphilis IgG Qualitative Nonreactive Nonreactive Syphilis IgG AI <0.2 V.zoster IgG, Qual Negative Positive (A) Varicella zoster, IgG Index Value >4000.0 HCV RNA by PCR IU/mL HCV RNA not detected by PCR. HIV 12 Combo (Ag/Ab) Non Reactive Non Reactive Strongyloides IgG, Serum <=0.99 IV 0.56 DATA: 06/28/17 CT A/P w/out IVC IMPRESSION: INDETERMINATE 1.4 CM ABOVE WATER ATTENUATION RIGHT RENAL LESION. ?FURTHER CHARACTERIZATION WITH ULTRASOUND IS RECOMMENDED. ATHEROSCLEROTIC CALCIFICATIONS DETAILED. CXR in February, (at OSH) showed no radiographic abnormalities Vaccines: Influenza: not received Pneumococcus: Prevnar 13 - 06/25/15 Hepatitis A/B: not immune to hepatitis B; unknown hepatitis A immunity Tetanus: 05/27/2009 Others: *Zostavax: 03/23/17 *Only if patient is not anticipated to receive a transplant within the next 4 weeks, as it is a live-attenuated vaccine. However, transplant should not be cancelled if an organ becomes available within 4 weeks of receiving Zostavax; rather, ganciclovir or acyclovir at renal-adjusted treatment doses should be initiated at the time of transplant. RISK ASSESSMENT: CMV: This patient is CMV IgG positive and will be at intermediate risk of developing symptomatic CMV disease after transplantation. This risk profile may be significantly altered through post-transplant monitoring and prophylaxis PLEASE BE AWARE THAT AN INFECTIOUS DISEASE RISK ASSESSMENT IS NEVER A GUARANTEE OF ABSENCE OF INFECTIOUS COMPLICATIONS POST-TRANSPLANT. Many high-risk patients may develop another infectious complication between the time of ID clearance and the time of transplant. If the transplant team is concerned about that possibility, then please contact us for another ID evaluation prior to definitive listing Assessment: 72 year old [place] African man with 1. CKD stage IV in the setting of diabetic nephropathy and uncontrolled HTN - currently undergoing evaluation for kidney transplantation - no history of recurrent infections 2. DMII 3. HTN Recommendations: 1. He is not immune to Hepatitis B and his hepatitis A immune status is unknown - thus will administer the Twinrix today; he should receive the second dose in 1 month and final dose in 6 months from now with his PCP 2. Will also administer the Shinrix. He will need the second dose in 2 months from today (can be obtained with his PCP). 3. We will obtain the following labs: Trypanosoma cruzii IgG (due to previous stay in [facility]), Toxoplasma IgG as well as Hepatitis A Ab (as immune status unknown) 4. We recommend routine perioperative antimicrobial prophylaxis. 5. Formal ID clearance to follow once pending lab work reviewed. STAFF ADDENDUM: pending serologies reviewed. Quant negative, strongy negative. Will continue with Hep B vaccination. No ID contraindication to listing. Nancy Olguin MD July 27, 2017 6:22 PM Thank you very much for inviting us to participate in the care of this patient. SIGNATURE: Ravinder Jones MD PATIENT NAME: Jimenez Gandara DATE: July 22, 2017 TIME: 10:05 AM PAGER/CONTACT #: [id number] ID STAFF NOTE: Patient is sent at the request of Dr. Luiz Perez for my opinion regarding pretx eval. My final recommendations will be communicated back to the requesting physician by way of shared Medical Record I have reviewed the medical records and interviewed and examined the patient. I have reviewed the laboratory, microbiology, radiology data and outside medical records as necessary. Rest of history, past history, family history, social history, ROS as outlined in HPI. Exam findings as outlined by Dr. Jones. Plan as above. Nancy Olguin MD CNOV Observed: 07/22/2017 Status: COMPLETED Source: RIO 9:45 AM [facility] REPOSITORY Office Visit (INFDMN) JIMENEZ GANDARA ([id number]) 1945 M TRN Date Time Provider Department 07/22/17 9:45 AM RAVINDER JONES (CIERA) INFDMN During your visit today, we recorded the following information about you: Temperature Pulse Respiration Blood pressure 98.1 degrees 67/minute 20/minute 164/71 Weight Height 97.5 kg 1.727 m Nancy Olguin MD 07/27/2017 6:22 PM Addendum INFECTIOUS DISEASE KIDNEY PRETRANSPLANT EVALUATION SERVICE DATE: 07/22/2017 Mr.Premnauth Gandara is a 72 year old male being evaluated for kidney transplantation. Our opinion is requested by Dr. Perez. Our findings and recommendations will be communicated through the shared medical record or by letter through US mail. Indication for Transplantation: DM and hypertension Retransplantation: no Need for Renal Dialysis: no Diabetes: yes NIDDM Subjective HPI: Mr. Gandara is a 72 year old man, originally from [facility] who is presenting for ID clearance in anticipation of a kidney transplant. He has a history of CKD stage IV in the setting of diabetic nephropathy and uncontrolled HTN and denies a history of recurrent infections. He feels quite well currently and has not experienced any fevers, chills, night sweats, cough, sputum production, abdominal pain or diarrhea. He was born in [facility] and moved to the in 1978. He denies a history of malaria or other infections while living there. He believes that he had a negative PPD prior to moving to the and denies a history of known exposure to T.B. He has never been homeless or incarcerated. 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 losartan (COZAAR) 100 mg tablet Take 100 mg by mouth once daily. carvedilol (COREG) 12.5 mg tablet Take 12.5 mg by mouth twice daily with meals. dulaglutide (TRULICITY) 1.5 mg/0.5 mL pnij Inject subcutaneously. one time weekly linagliptin (TRADJENTA) 5 mg tab Take by mouth once daily. CALCITRIOL ORAL Take 0.5 mg by mouth once daily. CALCIUM PHOSPHATE DIBAS/VIT D3 (VITAMIN D, WITH CALCIUM, ORAL) Take 1.25 mg by mouth once every month. ferrous sulfate (FEOSOL) 325 mg (65 mg iron) tablet Take 325 mg by mouth daily with breakfast. atorvastatin (LIPITOR) 40 mg tablet Take 1 tablet by mouth daily at bedtime. For cholesterol. No current facility-administered medications on file prior to visit. PAST MEDICAL HISTORY Diagnosis Date - Allergic rhinitis, cause unspecified Allergic rhinitis - Diabetes mellitus without mention of complication Diabetes mellitus - High cholesterol - Hypertension - Mixed hyperlipidemia Hyperlipidemia PAST SURGICAL HISTORY Procedure Laterality Date - OTHER wisdom teeth removal Social History Marital status: Spouse name: Years of education: Number of children: Social History Main Topics Smoking status: Former Smoker Packs/day: 0.00 Years: 0.00 Smokeless status: Never Used Comment: Quit 10 years ago Alcohol use: Yes Comment: ocassionally Drug use: No Sexual activity: Yes Partners with: Female FAMILY HISTORY Problem Relation Age of Onset - Stroke Mother - Hypertension Father ALLERGIES Allergen Reactions - Dust Immunization History Administered Date(s) Administered Pneumococcal-13 Vac Conjugate 06/25/2015 Pneumovax 03/23/2012 03/23/2017 Tdap (Age 7+) 05/27/2009 Zostavax 03/23/2017 Objective REVIEW OF SYSTEMS: As per HPI - otherwise negative PHYSICAL EXAMINATION: BP 164/71 Pulse 67 Temp 36.7 ?C (98.1 ?F) (Temporal Artery) Resp 20 Ht 172.7 cm (5' 8ANDquot;) Wt 97.5 kg (215 lb) SpO2 99% BMI 32.69 kg/m2 Gen: Pleasant well-nourished and well-developed [place] man who is conversing comfortably HEENT: PERRL, EOMI, anicteric Neck: supple, no cervical LAD CVS: RRR, S1S2 normal, no m/r/g Resp: breathing comfortably on RA, CTABl GI: soft, non-tender MSKT: no joint swelling/warmth/erythema Skin: no rashes or other lesions appreciated Ext: no LE edema LABS: 07/22/17 CMP: 137/5.3/102/23/43/3.62; LFTs wnl CBC WBC 7.54 Hgb 9.7 Plts 200 Cultures: None Serology: Component Latest Ref Rng ANDamp; Units 06/28/2017 Hep B Core Ab, Total Negative Negative Hep C Antibody IA Negative Negative Hep B Surface Ag Negative Negative Hep B Surface Ab, Qual Negative Negative TB Result Negative Negative TB Antigen Response ANDlt;0.35 IU/mL 0.01 Mitogen Response ANDgt;0.49 IU/mL ANDgt;10.00 TB Gamma Interpretation No evidence of current or previous infection with Mycobacterium tuberculosis. CMV IgG Qualitative Negative Positive (A) CMV Antibody, IgG U/mL 1.10 Measles Antibody, IGG Qualitative Negative Positive (A) Measles Antibody, IgG AU/mL ANDgt;300.0 Syphilis IgG Qualitative Nonreactive Nonreactive Syphilis IgG AI ANDlt;0.2 V.zoster IgG, Qual Negative Positive (A) Varicella zoster, IgG Index Value ANDgt;4000.0 HCV RNA by PCR IU/mL HCV RNA not detected by PCR. HIV 12 Combo (Ag/Ab) Non Reactive Non Reactive Strongyloides IgG, Serum ANDlt;=0.99 IV 0.56 DATA: 06/28/17 CT A/P w/out IVC IMPRESSION: INDETERMINATE 1.4 CM ABOVE WATER ATTENUATION RIGHT RENAL LESION. ?FURTHER CHARACTERIZATION WITH ULTRASOUND IS RECOMMENDED. ATHEROSCLEROTIC CALCIFICATIONS DETAILED. CXR in February, (at OSH) showed no radiographic abnormalities Vaccines: Influenza: not received Pneumococcus: Prevnar 13 - 06/25/15 Hepatitis A/B: not immune to hepatitis B; unknown hepatitis A immunity Tetanus: 05/27/2009 Others: *Zostavax: 03/23/17 *Only if patient is not anticipated to receive a transplant within the next 4 weeks, as it is a live-attenuated vaccine. However, transplant should not be cancelled if an organ becomes available within 4 weeks of receiving Zostavax; rather, ganciclovir or acyclovir at renal-adjusted treatment doses should be initiated at the time of transplant. RISK ASSESSMENT: CMV: This patient is CMV IgG positive and will be at intermediate risk of developing symptomatic CMV disease after transplantation. This risk profile may be significantly altered through post-transplant monitoring and prophylaxis PLEASE BE AWARE THAT AN INFECTIOUS DISEASE RISK ASSESSMENT IS NEVER A GUARANTEE OF ABSENCE OF INFECTIOUS COMPLICATIONS POST-TRANSPLANT. Many high-risk patients may develop another infectious complication between the time of ID clearance and the time of transplant. If the transplant team is concerned about that possibility, then please contact us for another ID evaluation prior to definitive listing Assessment: 72 year old [place] man with 1. CKD stage IV in the setting of diabetic nephropathy and uncontrolled HTN - currently undergoing evaluation for kidney transplantation - no history of recurrent infections 2. DMII 3. HTN Recommendations: 1. He is not immune to Hepatitis B and his hepatitis A immune status is unknown - thus will administer the Twinrix today; he should receive the second dose in 1 month and final dose in 6 months from now with his PCP 2. Will also administer the Shinrix. He will need the second dose in 2 months from today (can be obtained with his PCP). 3. We will obtain the following labs: Trypanosoma cruzii IgG (due to previous stay in [place]), Toxoplasma IgG as well as Hepatitis A Ab (as immune status unknown) 4. We recommend routine perioperative antimicrobial prophylaxis. 5. Formal ID clearance to follow once pending lab work reviewed. STAFF ADDENDUM: pending serologies reviewed. Quant negative, strongy negative. Will continue with Hep B vaccination. No ID contraindication to listing. Nancy Olguin MD July 27, 2017 6:22 PM Thank you very much for inviting us to participate in the care of this patient. SIGNATURE: Ravinder Jones MD PATIENT NAME: Jimenez Gandara DATE: July 22, 2017 TIME: 10:05 AM PAGER/CONTACT #: [id number] ID STAFF NOTE: Patient is sent at the request of Dr. Luiz Perez for my opinion regarding pretx eval. My final recommendations will be communicated back to the requesting physician by way of shared Medical Record I have reviewed the medical records and interviewed and examined the patient. I have reviewed the laboratory, microbiology, radiology data and outside medical records as necessary. Rest of history, past history, family history, social history, ROS as outlined in HPI. Exam findings as outlined by Dr. Jones. Plan as above. MD Ravinder Oconnor MD 07/22/2017 10:47 AM Signed Please obtain the following vaccines with your primary care physician: Twinrix (combined hepatitis A and B vaccine) in 1 month and 6 months from today Shingrix (shingles vaccine) in 2 months from today Tressa Mann Ma 07/22/2017 11:23 AM Signed Patient has been identified. Allergies verified. Patient here for an injection of HEPATITIS A/B Lot #: [id number] Expiration Date: 10/13/[address] [facility] # [id number] MGF Name gsk Dose: 1mL Route: Intramuscular Site: Left Arm Patient tolerated injection well. Tressa Mann Ma Patient has been identified. Allergies verified. Patient here for an injection of shingrix Lot #: [id number] Expiration Date: 10/14/19 [facility] # [id number] MGF Name gsk Dose: 0.5mL Route: Intramuscular Site: Left Arm Patient tolerated injection well. Tressa Mann Ma Referring Provider: LUIZ PEREZ [[id number]] Allergies As of Date: 07/22/2017 Noted Allergy Reaction DUST 12/11/2004 Date Reviewed: 07/22/2017 Reviewed by: Samm (Ex PhysNick Collins - Fully Assessed Reason for Visit: New Patient Evaluation [154] Primary Visit Diagnosis:CKD (chronic kidney disease) stage 4, GFR 15-29 ml/min (HCC) [N18.4] Other Visit Diagnoses:Need for vaccination [Z23] Organ transplant candidate [Z76.82] Pre-transplant evaluation for ESRD (end stage renal disease) [Z01.818] Need for vaccination with Twinrix [Z23] Order(s):ZOSTER VACC RECOMBINANT,IM [[id number]] Order #: [id number] HEPA/HEPB VACCINE ADULT IM [[id number]] Order #: [id number] HEP A AB TOTAL [SQAHAVT] Order #: [id number] FUTURE TRYPANOSOMA CRUZI AB, IGG [SQTCAIGG] Order #: [id number] FUTURE TOXOPLASMOSIS IGG AB [SQTOXG] Order #: [id number] FUTURE Prescriptions as of 07/22/2017 Sig: AMLODIPINE 5 MG-BENAZEPRIL 10* Take 1 capsule by mouth once * LOSARTAN 100 MG TABLET Take 100 mg by mouth once jeniffer* CARVEDILOL 12.5 MG TABLET Take 12.5 mg by mouth twice d* DULAGLUTIDE 1.5 MG/0.5 ML SUB* Inject subcutaneously. one ti* LINAGLIPTIN 5 MG TABLET Take by mouth once daily. CALCITRIOL ORAL Take 0.5 mg by mouth once jeniffer* VITAMIN D (WITH CALCIUM) ORAL Take 1.25 mg by mouth once ev* FERROUS SULFATE 325 MG (65 MG* Take 325 mg by mouth daily wi* ATORVASTATIN 40 MG TABLET Take 1 tablet by mouth daily * Problem List As Of Date 07/22/2017 Noted Resolved Controlled type 2 diabetes mellitus without com*INVALID FOR* ALLERGIC RHINITIS NOS [J30.9] INVALID FOR* Mixed hyperlipidemia [E78.2] INVALID FOR* Obesity due to excess calories with serious com*INVALID FOR* Bladder Neck Obstruction [N32.0] INVALID FOR* BPH w Urinary Obs/LUTS [N40.1] INVALID FOR* Impotence of Organic Origin [N52.9] INVALID FOR* Diabetes Mellitus [E11.9] INVALID FOR* Incontinence of urine [R32] INVALID FOR* Essential hypertension [I10] INVALID FOR* Pre-transplant evaluation for ESRD (end stage r*INVALID FOR* Secondary hypertension [I15.9] INVALID FOR* Other instructions from your clinician: Please obtain the following vaccines with your primary care physician: Twinrix (combined hepatitis A and B vaccine) in 1 month and 6 months from today Shingrix (shingles vaccine) in 2 months from today Visit Notes: >> Tressa Mann Mariluz [facility] Jul 22, 2017 11:22 AM Status: Signed Patient has been identified. Allergies verified. Patient here for an injection of HEPATITIS A/B Lot #: [id number] Expiration Date: 10/13/19 [facility] # [id number] MGF Name PurePhoto Dose: 1mL Route: Intramuscular Site: Left Arm Patient tolerated injection well. Tressa Mann Mariluz Patient has been identified. Allergies verified. Patient here for an injection of shingrix Lot #: [id number] Expiration Date: 10/14/19 [facility] # [id number] MGF Name PurePhoto Dose: 0.5mL Route: Intramuscular Site: Left Arm Patient tolerated injection well. Tressa Mann Mariluz Follow-up and Disposition History Recorded Encounter Status:Closed by NANCY OLGUIN MD on 07/23/17 PROGRESS Observed: 07/16/2017 Status: COMPLETED Source: RIO 12:48 PM [facility] REPOSITORY HNO ID: [id number] Author: Eloise Saha (Rn) NORMA Grace Service: (none) Author Type: Registered Nurse Type: Progress Notes Filed: 07/16/2017 12:49 PM Note Text: Patient was evaluated for a kidney transplant on 06/28/17. Pre-Transplant evaluation notes and lab results were faxed to the referring carpenter supervisor Dr. Mary Mix at [phone]. Eloise Bruce, RN, BSN Pre- Kidney and Pancreas Interline Clerk CBC-COMPLETE BLOOD CNT Collected: 07/13/2017 Status: F Source: RENEE NO DIFF 1:34 PM REPOSITORY TYPE CODE TESTS RESULT OUT OF RANGE REFERENCE UNITS LAB L100.1000 4.4-11.0 K/mm3 Normal WBC 7.0 LAB L100.1200 4.6-6.2 M/mm3 Low RBC 3.64 LAB L100.1300 13.0-16.5 g/dl Low HGB 9.6 LAB L100.1400 40-54 % Low HCT 29.1 LAB L100.1500 80-94 fL Low MCV 79.9 LAB L100.1600 27.0-32.0 pg Low MCH 26.4 LAB L100.1700 32-36 g/gl Normal MCHC 33.0 LAB L100.1810 11.6-14.6 % Normal RDW CV 14.2 LAB L100.1820 35.1-43.9 fl Normal RDW SD 39.5 LAB L100.1900 150-450 K/mm3 Normal PLT 195 LAB L100.2000 6.2-12.0 fl High MPV 12.1 Performed By: #### L100.0500 #### [facility] [address] [place], [address] RENAL PROFILE Collected: 07/13/2017 Status: F Source: QUINNESEC 1:34 PM REPOSITORY TYPE CODE TESTS RESULT OUT OF RANGE REFERENCE UNITS LAB L501.0100 74-106 mg/dL High GLU 126 Result Comment: Fasting Glucose result greater than or equal to 126 mg/dL suggests DIABETES MELLITUS per A.D.A. criteria. Please note revised GLUCOSE reference range effective 2017. LAB L501.1000 7-18 mg/dL High BUN 33 LAB L501.1100 0.70-1.30 mg/dL High CREAT,SERUM 3.18 Result Comment: The validity of the calculated GFR AND GFRAA in patients over 70 years has not been determined. Clinical correlation is essential. LAB L501.1110 >60 mL/min Low EST GFR 21 Result Comment: Non- GFR Calc LAB L501.1115 >60 mL/min Low EST GFR - AA 25 Result Comment: GFR Calc LAB L501.1300 10-20 RATIO Normal BUN/CRE 10.4 LAB L501.1800 3.2-5.0 g/dL Normal ALB 3.4 LAB L501.2200 8.5-10.1 mg/dL CA Normal 8.8 LAB L501.2300 2.5-4.9 mg/dL Normal PHOS 4.3 LAB L501.5300 136-145 mmol/L NA Normal 139 LAB L501.5600 3.5-5.1 mmol/L K Normal 5.1 LAB L501.5900 98-107 mmol/L CL Normal 105 LAB L501.6100 21.0-32.0 mmol/L Normal CO2 25.0 Performed By: #### L500.3600 #### [facility] [address] [place], [address] PTHIN Collected: 07/13/2017 Status: F Source: QUINNESEC 1:34 PM REPOSITORY TYPE CODE TESTS RESULT OUT OF RANGE REFERENCE UNITS LAB L509.1000 18.4-80.1 pg/mL High PTHIN 133.2 Result Comment: Please Note: PTH INTACT METHOD AND REFERENCE RANGE CHANGE Effective 03/31/2017. Performed By: #### L509.1000 #### [facility] [address] [place], [address] VITAMIN D,25 HYDROXY Collected: 07/13/2017 Status: F Source: QUINNESEC 1:34 PM REPOSITORY TYPE CODE TESTS RESULT OUT OF RANGE REFERENCE UNITS LAB L506.1000 29.95-100.01 ng/mL Normal Vitamin D 45.2 25-OH Result Comment: Vitamin D 25(OH) Status Range Deficiency <20 ng/mL (50nmol/L) Insuffciency 20 - 30 ng/mL (50 - 75 nmol/L) Sufficiency 30 - 100 ng/mL (75 - 250 nmol/L) Toxicity >100 ng/mL (>250 nmol/L) Performed By: #### L506.1000 #### [facility] [address] [place], [place], [address] SURGERY VISIT REPORT Observed: 07/08/2017 Status: F Source: QUINNESEC 4:23 PM REPOSITORY [facility] [address] [place] [address] OFFICE VISIT Date of Service: 07/08/17 MR#: [id number] Acct: [id number] Name: SHABBIR GANDARABRYSON Rep #: [id number] : 1945 Provider: Carlos Manuel Sorto MD Age/Sex: 72/M Location: [facility] Status: Signed Intake Vital Signs07/08/17 Height 5 ft 8 in 07/08/17 Weight: 215 lb Intake Visit Reasons: Schedule for Cscope Chief Complaint: Anemia [employer] Required: No Is patient in pain?: No Allergies No Known Allergies Allergy (Verified 07/08/17 13:39) Medications Carvedilol [Coreg (Beta Samantha)] 12.5 mg PO BID #60 tab 03/01/17 [Rx Confirmed 07/08/17] Amlodipine [Norvasc] 10 mg PO DAILY 06/23/17 [History Confirmed 07/08/17] Atorvastatin Calcium [Lipitor] 40 mg PO QHS 06/23/17 [History Confirmed 07/08/17] Calcitriol 5 mcg PO DAILY 06/23/17 [History Confirmed 07/08/17] Dulaglutide [Trulicity] 1.5 mg SQ QWEEK 06/23/17 [History Confirmed 07/08/17] Ergocalciferol (Vitamin D2) 1.25 mg PO QMONTH 06/23/17 [History Confirmed 07/08/17] Ferrous Sulfate [Iron] 65 mg PO DAILY 06/23/17 [History Confirmed 07/08/17] Linagliptin [Tradjenta] 5 mg PO DAILY 06/23/17 [History Confirmed 07/08/17] Losartan Potassium 100 mg PO DAILY 06/23/17 [History Confirmed 07/08/17] [facility] Medical History Chronic kidney disease, stage IV (severe) (Chronic) 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) DM2 (diabetes mellitus, type 2) (Chronic) Hypertensive urgency (Acute) Hypertensive urgency (Acute) ARF (acute renal failure) (Acute) HTN (hypertension) (Chronic) Pre-syncope (Acute) Anemia (Acute) Hyperlipidemia (Acute) Surgical History No history of previous surgery (Acute) [place] teeth removed (Acute) Family History Father Pneumonia Mother CVA (cerebral vascular accident) Social History Smoking Status: Former smoker how long ago did patient quit smokin, 0.5pk/day second hand exposure: Yes alcohol intake: current alcohol intake frequency: a few times a month substance use type: does not use HPI HPI HPI: JIMENEZ GANDARA, is a 72 M who presents to the office today for preoperative evaluation prior to a potential future renal transplantation. The patient is age 72. He has never had a previous screening colonoscopy. He does have chronic renal insufficiency with his most recent BUN 30 and creatinine 3.13 with a GFR of 20. He does not have tunneled catheters or fistula. He has had a chronic anemia. As of June 28 his white count was 7.9 with hemoglobin 9.8 and hematocrit 30.6 and platelet count of 210,000. He is never had a upper and lower endoscopy. He occasionally has heartburn type symptoms treated with yatx-inz-sojwltl medicine. He has been placed on supplemental iron to overdrive his anemia. In addition while being evaluated for his anemia he had dyspnea on exertion. That has improved with the iron supplementation and additionally the patient has had an additional 40 pound intentional weight loss. He has a remote history of smoking cigarettes 1 pack a day for 5 years but quit soon after college. He has no family history of colon polyps or colon cancer. He denies bright red blood per rectum. His stool is currently quite dark secondary to the iron. He does not recall in the recent past having submitted stool cards for analysis. ROS General General: Yes weight change; no appetite, fatigue, colon cancer, breast cancer or weakness HEENT HEENT: No difficulty swallowing, eye injury, eye surgery, swollen glands or hoarseness Endo Endocrine: Yes diabetes mellitus; no thyroid disease, thyroid cancer, Hair loss, heat intolerance or cold intolerance Skin Skin: Yes rash; no changing moles Musc Musculoskeletal: Yes back problems; no arthritis, rheumatoid arthritis, gout or joint pain Cardio Cardiovascular: Yes high blood pressure; no murmur, pacemaker, heart disease, atrial fibrillation, heart attack, heart stent, palpitations, shortness of breat with exertion or chest pain Psych Psychiatric: No depression, anxiety or hearing voices Resp Respiratory: No shortness of breath, No sleep apnea, No cough, No COPD, No asthma, No emphysema, No wheezing Gastro Gastrointestinal: No abdominal pain, No nausea or vomiting, No diarrhea, Yes constipation, No blood in stool, No acid reflux, No hemorrhoids, No ulcers, No gallbladder problem, No black,tarry stools Nathan Hematologic: No blood thinners, No blood disorders, No bleeding, Yes anemia, No blood clots Neuro Neurologic: No system reviewed and no additional complaints, except as docu, No as per HPI, No abnormal walking, No abnormal hearing, No abnormal movements, No abnormal speech, No behavioral changes, No burning sensations, No confusion, No seizure-like activity, No unsteadiness, No dizziness, No localized weakness, No frequent falls, No headache(s), No lack of coordination, No loss of vision, No memory loss, No numbness, No other visual disturbances, No radiating pain, No restless legs, No sensory deficit, No fainting, No tingling, No tremor(s), No weakness, No other Exam Const General: cooperative, healthy appearing, well developed Nutritional Appearance: overweight Orientation: awake, alert [facility] Head: normal to inspection Eyes General: appearance normal, both eyes and all related structures Chest Chest palpation AND inspection: normal inspection of the chest Resp Effort AND Inspection: normal respiratory effort Auscultation: clear to auscultation bilaterally Cardio Rate: regular rate Rhythm: regular rhythm Heart Sounds: no murmurs GI Palpation: soft, no hepatosplenomegaly Auscultation: normal bowel sounds Skin General: no rashes or lesions noted Neuro Cranial Nerves: CN's II-XI intact bilaterally Extrem General: no clubbing, cyanosis or edema Psych Affect: normal affect Assessment AND Plan 1. Chronic kidney disease, stage IV (severe) N18.4 2. Anemia, unspecified type D64.9 Plan Based upon his chronic anemia and need for pre-transplantation screening I am proposing for the patient a combined esophagogastroduodenoscopy with possible biopsy and colonoscopy with possible biopsy or polypectomy is indicated. He is aware of the technique, benefits, risks, alternatives. No guarantees of success have been offered. We will schedule and proceed at his discretion. Because of his medical comorbidities I anticipate using monitored anesthesia care. The patient is additionally aware that he may need future placement of a fistula for hemodialysis. Careful inspection for potential source of anemia will be pursued. I very much appreciate the kind opportunity of assisting with his surgical care Cc: Dr. Sharma and Dr. Dominguez Sorto M.D., F.A.C.S. Orders Orders: Coding Level of Care Code Off vis,new,level 3 Diagnoses Chronic kidney disease, stage IV (severe) N18.4 Anemia, unspecified type D64.9 Anemia type: unspecified type 07/08/17 1623 <Electronically signed by Carlos Manuel Sorto MD> Date Carlos Manuel Sorto MD Cosigner Signature: Date (if applicable) CC: Mary Mix DO; Sy Sharma MD ONCOLOGY VISIT REPORT Observed: 06/30/2017 Status: F Source: QUINNES[facility] 1:51 PM REPOSITORY [facility] [address] [place] [id number] OFFICE VISIT Date of Service: 06/30/17 1327 MR#: [id number] Acct: [id number] Name: JIMENEZ GANDARA Rep #: [id number] : 1945 From: Shania Hanks MD Age/Sex: 72/M Location: D Status: Signed - Problem List (1) Anemia of chronic renal failure, stage 4 (severe) Status: Chronic - Date of Service Date of Service:: 06/30/17 - Chief Complaint Anemia - History of Present Illness 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 His past medical history is notable for diabetes for over 20 years duration complicated with nephropathy and hypertension. He was started on oral iron supplement with no significant improvement in his blood counts. He is unaware of any external bleeding although has not had screening colonoscopy or an endoscopy for GI blood loss. His stools turned black only after he started taking oral line. He has no first-degree relatives with malignancies. Though he is of [place] ancestry he himself has never traveled to [place] and to his knowledge never exposed or suffered from malaria. - Past Medical/Social History Social History Smoking Status Former smoker Review of Systems Constitutional:: Reports: Fatigue Comment: For rest of review of systems please see recent note of June 23, 2017 Vital Signs Height 5 ft 8 in Weight: 98.067 kg Weight in Pounds 216.2 lbs Pulse Ox 97 - Physical Exam General: Alert, Oriented x3, No apparent distress, - - ECOG 1 For full exam please see recent note of June 23, 2017 Laboratory Data: Reviewed in EMR Laboratory Tests Hgb 9.9 L Hct 30.3 L Creatinine 3.11 H Iron Saturation 37.3 Erythropoietin 7.2 Ferritin 177 Assessment and Plan 72-year-old gentleman with a slowly progressively worsening chronic anemia, symptomatic, most consistent with anemia of chronic kidney disease. His iron studies do not show any evidence of iron deficiency on oral iron supplementation. Erythrocyte stimulating agent therapy is not yet indicated (hemoglobin less than 10 g and hematocrit less than 30% consistently and in absence of any iron deficiency) though it appears that it may become indicated in the future as a natural progression of his chronic kidney disease. His fatigue is multifactorial including anemia, obstructive sleep apnea, overweight and other comorbid conditions under past medical history. Plan: #1 continue oral iron supplementation 1 tablet daily. #2 Will be placed on watchful expectancy to initiate erythrocyte stimulating agent once indicated. Follow-up in 3 months. Impression and plan discussed. Given printed patient educational material about erythropoietin Medications: Prescriptions This Visit Medication Instructions Recorded Primary Care Provider: Sy Sharma Referring Provider: Sy Sharma 06/30/17 3416 <Electronically signed by Shania Hanks MD> Date Shania Hanks MD Cosigner Signature: Date (if applicable) CC: Sy Sharma MD [place] CONFIRM ABO/RH Collected: 06/28/2017 Status: F Source: RIO [facility] USE 4:25 PM [facility]IN[facility]IN CAMP[facility] ONLY REPOSITORY TYPE CODE TESTS RESULT OUT OF REFERENCE UNITS RANGE LAB %ABR A ABO/RH(D) NEGATIVE Performed By: #### TRCABO #### [facility] [address] [place], [place] [address] PROGRESS Observed: 06/28/2017 Status: COMPLETED Source: RIO 4:14 PM [facility] REPOSITORY O ID: [id number] Author: Ela Armstrong (Sw) Service: (none) Author Type: Pediatric Cardiologist Type: Progress Notes Filed: 06/28/2017 4:28 PM Note Text: REFFERAL: Jimenez Gandara was referred to Social Work for a psychosocial evaluation as to whether he would make a suitable psychosocial candidate for a kidney transplant. He is not yet dialysis dependent. I met with him on june 28, 2017 and he chose to include his , Milena. IDENTIFYING INFORMATION/LIVING SITUATION: Jimenez Gandara is a 72 year old [place] male who lives at [address] [place] [address] in a two story house. [place] is a one [place] [address] from [facility]. Bedroom and bath are on the first floor. Also in the home is Jimenez's , Milena, age 45, and two of their four children. 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 One is at [place] [employer] three days per week , 12 hour shifts. 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 The children are Sophia, age 24, who is a recent graduate as an RN and obtained a position at [employer] working three days, 12 hour shifts; and Nyla, age 19, who attends the [employer]. Also in the home is an older beagle dog. Jimenez is fully independent in his personal care needs and drives a car as do his two daughters and . He helps some around the house. He presented in a pleasant, quiet manner, fully focused on the interview. COMPREHENSION OF MEDICAL SITUATION: Jimenez Gandara states that he is not sure what caused his kidney failure, although his physicians tell him that it is due to his hypertension and diabetes. He states that he has had diabetes for years but did not test his glucose very often. He states that he did take him oral medications for it though. He states that he did not take care of his health well for years, but now he does. He states that he became short of breath late last year and was told that he had some kidney failure. He states that he has now accepted this. He states that he started to excersize three times per week at the [facility] and follow a better diet and he has lost forty pounds. He states that his A1C is now below 7. He states that he knows his medications and their purpose and he never forgets to take them He has just started to educate himself on kidney transplant issues but he seems to understand and accept the risks and benefits involved. SUBSTANCE HABITUATION/SOCIAL HISTORY/MARITAL HISTORY: Tobacco use: smoked cigarettes for about 8 years and quit about 25 years ago ( 1991) Alcohol Use: rare use; use to use lightly years ago Street Drug Use: denies ever using Mental Health: denies ever having formal mental health intervention. Denies any extended periods of anxiety or depression. Denies suicidal ideation or attempts. He could not say what helps him to cope, but maybe talking to others at times. He is not following any sikh at this time Level of education: bachelor degree Marital Status; Number of children: four: ages 19, 21, 22, 24 CITIZENSHIP: [place] Citizen SOCIAL NARRATIVE: Jimenez Gandara was born and raised in [place] by both of his biological parents. He is one of six children. Several sisters in childhood. Jimenez states that [place] father [place]. He moved to the [place] when he was [age] to continue his education. His parents are now . He has three living sisters; ages 77, 75 and 62. One lives in [place]; one lives in [place] and one lives in [place]. 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 area to attend [employer]. He obtained a bachelor degree there in mechanical engineering in 1980. He then stayed living in the [facility] and worked. He became a [place] citizen. He took a job in [place], [place] in the mid . He Milena in 1990 and the marriage produced four children: Nyla, age 19, who lives at home and attends college; son, Prakash, age 21 who lives on [facility] ; Awilda, age 22 who attends [employer] and lives on campus; and Sophia, age 24 who is an RN and lives at home. The marriage appears stable and supportive. tends to stay very busy and may have feelings about her not staying busy enough EDUCATION/EMPLOYMENT: Jimenez Gandara is currently not employed. He has a bachelor degree in mechanical engineering in 1980. He worked for [employer] for 27 years and retired in 2009. BENEFITS: MMO through his 's employment. He also has Medicare A only as secondary. He is thinking of signing up for Part B to help with any outstanding bills. Medications have a manageable copay. He is advised to call his insurance to check on the copay for valgancylovir. SUPPORT SYSTEM: Jimenez Gandara seems to have an adequate support system. His primary support will come from his and his children. is able to take time off of work. She agreed to make sure that all children would assist with transportation needs and help at home HOBBIES AND INTEREST: gardening; goes to gym three times per week ADVANCE DIRECTIVES: has them at home and named his as DPOA DONORS: and children have offered and he seems fine with this. IMPRESSIONS AND RECOMMENDATIONS: At this time, Jimenez Gandara appears to be a suitable psychosocial candidate for a kidney transplant. He has no obvious psychosocial barriers such as ETOH abuse, street drug use, tobacco use or mental health instability. He admits that he was lax in taking care of his health for years until he became ill in 2017. Since then he has paid attention to his health and has improved in several areas. He has lost weight , become more active and his A1C is much better. He has adequate social support and adequate medication coverage. He may obtain Medicare Part B now to help with medical bills. I recommend that he be re evaluated if he starts dialysis. I gave him information and brochures pertinent to the kidney transplant process and he has my contact information RIMA Arias STRIKER OUT Kidney and Kidney/Pancreas Transplant Pediatric Cardiologist June 28, 2017 PROTIME Collected: 06/28/2017 Status: F Source: RIO 4:10 PM [facility]IN [facility]AMPUS REPOSITORY TYPE CODE TESTS RESULT OUT OF RANGE REFERENCE UNITS LAB PSEC 9.7-13.0 sec PT Sec 10.9 LAB INR 0.9-1.3 PT INR 1.1 Result Comment: Vitamin K Antagonist (VKA) Therapeutic Range: INR 2 to 3 (Target INR of 2.5) Note: For patients treated with VKA drugs, such as warfarin, the [place] [employer] 2012 Guideline recommends a therapeutic INR range of 2 to 3 (target INR of 2.5). This recommendation includes high-risk patients with antiphospholipid syndrome with previous arterial or venous thromboembolism, current-generation mechanical or bioprosthetic aortic heart valve replacement. Note: Patients with mechanical aortic valve replacement and additional risk factors for thromboembolic events (atrial fibrillation, previous thromboembolism, LV dysfunction, hypercoagulable conditions) or an older generation mechanical AVR (i.e., ball in-Cage) or any mechanical MVR should have a INR therapeutic range of 2.5 to 3.5 (target INR of 3). Alysha YU, et al. Chest 2012, 141:7S-47S Villa RUZI, et al. [facility] 2017, 70: 252-289 Performed By: #### PT, PTT, PHOS, PTHI, PSATF, CMVG, VZVG2, MEASLG, HREMOP, HIV12C, SYPHGX, EBVG, HCQPCR, INFTBG #### [facility] [address] [place], [place] [address] #### STRSER #### [facility] [address] [place] [address] [phone] APTT Collected: 06/28/2017 Status: F Source: RIO 4:10 PM [facility] REPOSITORY TYPE CODE TESTS RESULT OUT OF RANGE REFERENCE UNITS LAB APTT 23.0-32.4 sec APTT 26.5 Result Comment: Unfractionated Heparin Therapeutic Ranges: Standard Heparin Nomogram: 53 to 78 seconds (anti-Xa level of 0.3 to 0.7 U/ml) Low Dose/ACS Nomogram: 49 to 67 seconds (anti-Xa level of 0.2 to 0.5 U/ml) Stroke Treatment Nomogram: 49 to 67 seconds (anti-Xa level of 0.2 to 0.5 U/ml) Note: The APTT therapeutic range has been determined for the current lot of laboratory APTT reagent in use throughout the [facility]. Performed By: #### PT, PTT, PHOS, PTHI, PSATF, CMVG, VZVG2, MEASLG, HREMOP, HIV12C, SYPHGX, EBVG, HCQPCR, INFTBG #### [place] [phone] #### STRSER #### [address] [address] [phone] PHOSPHORUS Collected: 06/28/2017 Status: F Source: RIO 4:10 PM [facility] REPOSITORY TYPE CODE TESTS RESULT OUT OF REFERENCE UNITS RANGE LAB PHOS 2.7-4.8 mg/dL Phosphorus 4.4 Performed By: #### PT, PTT, PHOS, PTHI, PSATF, CMVG, VZVG2, MEASLG, HREMOP, HIV12C, SYPHGX, EBVG, HCQPCR, INFTBG #### [place] [phone] #### STRSER #### [place] [address] [phone] PTH, INTACT Collected: 06/28/2017 Status: F Source: RIO 4:10 PM [facility] REPOSITORY TYPE CODE TESTS RESULT OUT OF REFERENCE UNITS RANGE LAB PTH 15-65 pg/mL High PTH, Intact 68 Performed By: #### PT, PTT, PHOS, PTHI, PSATF, CMVG, VZVG2, MEASLG, HREMOP, HIV12C, SYPHGX, EBVG, HCQPCR, INFTBG #### [place] [phone] #### STRSER #### [address] [address] [phone] PSA, FREE Collected: 06/28/2017 Status: F Source: RIO 4:10 PM [facility] REPOSITORY TYPE CODE TESTS RESULT OUT OF REFERENCE UNITS RANGE LAB PSA 0.00-2.59 ng/mL PSA, Diagnostic 0.74 Result Comment: Total PSA test methodology used is the Electrochemiluminescence Immunoassay. LAB PSAPER % PSA, Percent Free 61 DO NOT ORDER FOR SUPERIOR ONLY Result Comment: Less than 11% suggestive of prostate cancer. Greater than 23% suggestive of benign condition. Performed By: #### PT, PTT, PHOS, PTHI, PSATF, CMVG, VZVG2, MEASLG, HREMOP, HIV12C, SYPHGX, EBVG, HCQPCR, INFTBG #### [facility] [address] [place], [place] [address] #### STRSER #### [address] [address] [phone] CMV IGG ANTIBODY Collected: 06/28/2017 Status: F Source: RIO 4:10 PM [facility] REPOSITORY TYPE CODE TESTS RESULT OUT OF RANGE REFERENCE UNITS LAB CMVGQL Negative Abnormal Alert CMV Positive IgG Qual Result Comment: Presence of detectable CMV IgG antibodies indicates either recent or past exposure to CMV. LAB CMVGA U/mL CMV IgG Antibody 1.10 Result Comment: U/mL values are interpreted as follows: Negative: <0.60 Equivocal: >=0.60 to <0.70 Positive: >=0.70 The magnitude of the measured result above the cutoff is not indicative of the amount of antibody present. Performed By: #### PT, PTT, PHOS, PTHI, PSATF, CMVG, VZVG2, MEASLG, HREMOP, HIV12C, SYPHGX, EBVG, HCQPCR, INFTBG #### [place] [id number] [place], [place] [address] #### STRSER #### [address] [address] [phone] VARICELLA ZOSTER IGG Collected: 06/28/2017 Status: F Source: RIO 4:10 [facility] REPOSITORY TYPE CODE TESTS RESULT OUT OF RANGE REFERENCE UNITS LAB VZVGQL Negative Abnormal V. zoster Positive Alert IgG, Qual Result Comment: Presence of detectable VZV IgG antibodies. A positive result generally indicates exposure to the pathogen or administration of specific immunoglobulins, but is no indication of active infection or stage of disease. LAB VZVG Index Value Varicella Zoster IgG >4000.0 Result Comment: Index Values are Interpreted as Follows: Negative specimens <135.0 Equivocal specimens 135.0 to 164.9 Positive specimens >164.9 The magnitude of the measured result is not indicative of the amount of antibody present. Performed By: #### PT, PTT, PHOS, PTHI, PSATF, CMVG, VZVG2, MEASLG, HREMOP, HIV12C, SYPHGX, EBVG, HCQPCR, INFTBG #### [place] [id number] [place], [place] [address] #### STRSER #### [address] [address] [phone] MEASLES IGG ANTIBODY Collected: 06/28/2017 Status: F Source: RIO 4:10 PM [facility] REPOSITORY TYPE CODE TESTS RESULT OUT OF RANGE REFERENCE UNITS LAB MEASQL Negative Abnormal Measles IgG Positive Alert Ab, Qual Result Comment: Presence of detectable measles virus IgG antibodies. A positive result generally indicates exposure to measles virus or previous vaccination. LAB MEASG AU/mL Measles IgG Antibody >300.0 Result Comment: AU/mL Value interpreted as follows: Negative specimens <25.0 Equivocal specimens 25.0 to 29.9 Positive specimens >29.9 The magnitude of the measured result, above the cutoff, is not indicative of the amount of antibody present. Performed By: #### PT, PTT, PHOS, PTHI, PSATF, CMVG, VZVG2, MEASLG, HREMOP, HIV12C, SYPHGX, EBVG, HCQPCR, INFTBG #### [address] [address] #### STRSER #### [address] [address] [phone] HEPATITIS REMOTE PANEL Collected: 06/28/2017 Status: F Source: RIO 4:10 PM [facility] REPOSITORY TYPE CODE TESTS RESULT OUT OF REFERENCE UNITS RANGE LAB AHBCOT Negative Hep B Core Ab,Total Negative LAB AHCV Negative Hepatitis C Ab Negative IA LAB HBSAGR Negative HBsAg Negative LAB AHBSAG Negative HepB Surface Ab,Qual Negative Result Comment: NEGATIVE Performed By: #### PT, PTT, PHOS, PTHI, PSATF, CMVG, VZVG2, MEASLG, HREMOP, HIV12C, SYPHGX, EBVG, HCQPCR, INFTBG #### [place] [id number] [place] [id number] #### STRSER #### [address] [address] [phone] HIV 12 COMBO (AG/AB) Collected: 06/28/2017 Status: F Source: RIO 4:10 PM [facility] REPOSITORY TYPE CODE TESTS RESULT OUT OF REFERENCE UNITS RANGE LAB HVAGAB Non Reactive HIV Non Reactive 12 Ag/Ab Result Comment: (NOTE) HIV Information: [place] Rev. Code 3701.243(E): This information has been disclosed to you from confidential records protected from disclosure by state law. You shall make no further disclosure of this information without the specific, written, and informed release of the individual to whom it pertains, or as otherwise permitted by state law. A general authorization for the release of medical or other information is not sufficient for the purpose of the release of HIV test results or diagnoses. Performed By: #### PT, PTT, PHOS, PTHI, PSATF, CMVG, VZVG2, MEASLG, HREMOP, HIV12C, SYPHGX, EBVG, HCQPCR, INFTBG #### [place] [phone] #### STRSER #### [address] [address] [phone] SYPHILIS IGG WITH Collected: 06/28/2017 Status: F Source: [facility] 4:10 PM [facility] REPOSITORY TYPE CODE TESTS RESULT OUT OF REFERENCE UNITS RANGE LAB SYPHQL Nonreactive Syphilis IgG, Nonreactive Qual Result Comment: In conjunction with this result, the immune status of the patient should be evaluated based on their clinical status, related risk factors, and other diagnostic test results. LAB SYPHLG AI Syphilis IgG <0.2 Result Comment: Antibody index is interpreted as follows: Non reactive SPECIMENS <=0.8 Weak reactive SPECIMENS 0.9 to 5.9 Reactive SPECIMENS >=6.0 Performed By: #### PT, PTT, PHOS, PTHI, PSATF, CMVG, VZVG2, MEASLG, HREMOP, HIV12C, SYPHGX, EBVG, HCQPCR, INFTBG #### [facility] [address] [place], [place] [address] #### STRSER #### [address] [address] [phone] EBV IGG ANTIBODY Collected: 06/28/2017 Status: F Source: [facility] 4:10 PM [facility] REPOSITORY TYPE CODE TESTS RESULT OUT OF RANGE REFERENCE UNITS LAB EBVGQ Negative Abnormal Alert EBV Positive VCA IgG, Qual Result Comment: Specimen is positive for EBV VCA IgG antibody. A positive test result presumes a current or past infection with EBV. Other EBV serology assays such as the EBV VCA IgM should be performed to confirm serologic status, active acute, past or indeterminate infection for EBV-associated infectious mononucleosis. LAB EBVGX AI EBV VCA IgG >8.0 Result Comment: AI VALUES ARE INTERPRETED FOLLOWS: NEGATIVE SPECIMENS <=0.8 EQUIVOCAL SPECIMENS 0.9 TO 1.0 POSITIVE SPECIMENS >=1.1 Antibody index (AI) values reflect qualitative changes in antibody concentration that cannot be associated with clinical condition or disease state. Performed By: #### PT, PTT, PHOS, PTHI, PSATF, CMVG, VZVG2, MEASLG, HREMOP, HIV12C, SYPHGX, EBVG, HCQPCR, INFTBG #### [place] [phone] #### STRSER #### [address] [address] [phone] HEPATITIS C RNA Collected: 06/28/2017 Status: F Source: [facility] 4:10 PM [facility] REPOSITORY TYPE CODE TESTS RESULT OUT OF REFERENCE UNITS RANGE LAB HCQPCR IU/mL Hepatitis C RNA HCV RNA not detected by PCR. Result Comment: Reference Range: Negative for HCV RNA The Linear Range of this assay is 15 IU/mL to 100,000,000 IU/mL. Performed By: #### PT, PTT, PHOS, PTHI, PSATF, CMVG, VZVG2, MEASLG, HREMOP, HIV12C, SYPHGX, EBVG, HCQPCR, INFTBG #### [place] [phone] #### STRSER #### [address] [address] [phone] TB BY QUANTIFERON Collected: 06/28/2017 Status: F Source: [facility] 4:10 PM [facility] REPOSITORY TYPE CODE TESTS RESULT OUT OF REFERENCE UNITS RANGE LAB TBGRES Negative TB Result Negative LAB TBGUI <0.35 IU/mL TB Antigen 0.01 Response LAB TBGMIT >0.49 IU/mL Mitogen >10.00 Response LAB TBGINT Interpretation No evidence of current or previous infection with Mycobacterium tuberculosis. Performed By: #### PT, PTT, PHOS, PTHI, PSATF, CMVG, VZVG2, MEASLG, HREMOP, HIV12C, SYPHGX, EBVG, HCQPCR, INFTBG #### [facility] [address] [place] [phone] #### STRSER #### [address] [address] [phone] STRONGYLOIDE IGG SER Collected: 06/28/2017 Status: F Source: [facility] 4:10 PM [facility] REPOSITORY TYPE CODE TESTS RESULT OUT OF REFERENCE UNITS RANGE LAB STRGS <=0.99 IV Strongyloide IgG Ser 0.56 Result Comment: (NOTE) INTERPRETIVE INFORMATION: Strongyloides Ab, IgG by [employer] 08/24/2016 REFERENCE INTERVAL CHANGE Due to kit wax pattern repairer reagent validation failure, an alternate kit has been validated and implemented by [employer]. This test kit detects IgG antibody to Strongyloides ratti somatic larval antigens. The following Reference Interval applies to this result: 0.99 IV or less....... Negative - No significant level of Strongyloides IgG antibody detected. 1.00 IV or greater ... Positive - IgG antibodies to Strongyloides detected, which may suggest current or past infection. Performed by [employer], [address] [place] [address] [id number] [email or web address], Saleem Blackman MD, Lab. Director Performed By: #### PT, PTT, PHOS, PTHI, PSATF, CMVG, VZVG2, MEASLG, HREMOP, HIV12C, SYPHGX, EBVG, HCQPCR, INFTBG #### [facility] [address] [place], [place] [address] #### STRSER #### [facility] [address] [address] [phone] CBC AND DIFFERENTIAL Collected: 06/28/2017 Status: F Source: [facility] 4:10 PM [facility] REPOSITORY TYPE CODE TESTS RESULT OUT OF REFERENCE UNITS RANGE LAB WBC 3.70-11.00 k/uL WBC 7.93 LAB RBC 4.20-6.00 m/uL Low RBC 3.78 LAB HGB 13.0-17.0 g/dL Low Hemoglobin 9.8 LAB HCT 39.0-51.0 % Low Hematocrit 30.6 LAB MCV 80.0-100.0 fL MCV 81.0 LAB MCH 26.0-34.0 pG Low MCH 25.9 LAB MCHC 30.5-36.0 g/dL MCHC 32.0 LAB RDWCV 11.5-15.0 % RDW-CV 14.0 LAB PLTCT 150-400 k/uL Platelet Count 210 LAB MPV 9.0-12.7 fL MPV 11.8 LAB ANEUT % Neut% 59.7 LAB AANEUT 1.45-7.50 k/uL Abs Neut 4.72 LAB ALYMP % Lymph% 27.0 LAB AALYMP 1.00-4.00 k/uL Abs Lymph 2.14 LAB AMONO % [place]% 6.7 LAB AAMONO <0.87 k/uL Abs [place] 0.53 LAB AEOS % Eosin% 6.1 LAB AAEOS <0.46 k/uL Abs High Eosin 0.48 LAB ABASO % Baso% 0.5 LAB AABASO <0.11 k/uL Abs Baso 0.04 LAB AUNRBC 0 /100 WBC NRBCs 0.0 LAB ABNRBC <0.01 k/uL Absolute nRBC <0.01 LAB DTYP DTYPE Auto Diff Performed By: #### CBCDIF, CMP, LIPB, HBA1C #### [facility] [address] [place], [place] [address] COMP METABOLIC PANEL Collected: 06/28/2017 Status: F Source: [facility] 4:10 PM [facility] REPOSITORY TYPE CODE TESTS RESULT OUT OF REFERENCE UNITS RANGE LAB TP 6.3-8.0 g/dL Protein, Total 7.9 LAB ALB 3.9-4.9 g/dL Albumin 4.2 LAB CA 8.5-10.2 mg/dL Calcium, Total 9.6 LAB TBIL 0.2-1.3 mg/dL Bilirubin, Total 0.3 LAB ALKP 36-108 U/L Alkaline Phosphatase 65 LAB AST 14-40 U/L AST 22 LAB GLU 74-99 mg/dL Glucose High 161 Result Comment: The [place] Diabetes Association (ADA) provides guidance for cutoff values for fasting glucose and random glucose. The ADA defines fasting as no caloric intake for at least 8 hours. Fas ting plasma glucose results between 100 to 125 mg/dL indicate increased risk for diabetes (prediabetes). Fasting plasma glucose results greater than or equal to 126 mg/dL meet the criteria for diagnosis of diabetes. In the absence of unequivocal hyperglycemia, results should be confirmed by repeat testing. In a patient with classic symptoms of hyperglycemia or hyperglycemic crisis, random plasma glucose results greater than or equal to 200 mg/dL meet the criteria for diagnosis of diabetes. Reference: Standards of Medical Care in Diabetes 2016, [place] Diabetes Association. Diabetes Care. 2016.39(Suppl 1). LAB BUN 9-24 mg/dL BUN High 30 LAB CRET 0.73-1.22 mg/dL Creatinine High 3.13 LAB NA 136-144 mmol/L Sodium 140 LAB K 3.7-5.1 mmol/L Potassium 4.8 LAB CL 97-105 mmol/L Chloride 102 LAB CO2 22-30 mmol/L CO2 22 LAB AGAP 9-18 mmol/L Anion Gap 16 LAB ALT 10-54 U/L ALT 14 LAB GFRAA eGFR- Amer. 24 LAB GFRNAA . eGFR-All Other Races 20 Result Comment: eGFR (Estimated GFR) Units of measure: mL/min/1.73 meters squared eGFR is derived from the reexpressed MDRD Study equation using the following parameters: serum creatinine, age, gender and race. The creatinine assay has been calibrated to be traceable to IDMS. An eGFR <60 mL/min/1.73m2 for >3 months is consistent with chronic kidney disease. Refer to KDOQI guidelines for clinical interpretation. In patients with unstable renal function, e.g. those with acute kidney injury, the eGFR may not accurately reflect actual GFR. Performed By: #### CBCDIF, CMP, LIPB, HBA1C #### [facility] [address] [place], [place] [address] LIPID PANEL, BASIC Collected: 06/28/2017 Status: F Source: [facility] 4:10 PM [facility] REPOSITORY TYPE CODE TESTS RESULT OUT OF REFERENCE UNITS RANGE LAB CHOL <200 mg/dL Cholesterol 104 Result Comment: <200 mg/dL, Desirable 200-239 mg/dL, Borderline high >239 mg/dL, High LAB TRIGLY <150 mg/dL Triglyceride 111 Result Comment: <150 mg/dL, Normal 150-199 mg/dL, Borderline high 200-499 mg/dL, High >499 mg/dL, Very high LAB HDL >39 mg/dL HDL-Cholesterol 49 Result Comment: 40-59 mg/dL, Acceptable >59 mg/dL, High: Negative risk factor for coronary heart disease <40 mg/dL, Low: Positive risk factor for coronary heart disease LAB LDL <100 mg/dL LDL-Cholesterol 33 Result Comment: <100 mg/dL, Optimal 100-129 mg/dL, Near optimal/above optimal 130-159 mg/dL, Borderline high 160-189 mg/dL, High >189 mg/dL, Very high Secondary prevention optimal LDL Cholesterol levels are recommended to be < 70 mg/dL LAB NONHDL <130 mg/dL Non HDL Cholesterol 55 Result Comment: <130 mg/dL, Optimal 130-159 mg/dL, Near optimal/above optimal 160-189 mg/dL, Borderline high 190-219 mg/dL, High >219 mg/dL, Very high Secondary prevention optimal non HDL Cholesterol levels are recommended to be < 100 mg/dL LAB FT hrs Fasting Time 0 LAB VLDL <30 mg/dL VLDL Cholesterol 22 LAB TCHDL <5.10 TC:HDL Ratio 2.12 LAB LDLHDL <2.54 LDL:HDL Ratio 0.67 Result Comment: Reference: 1. National Cholesterol Education Program ATP III Guideline At-A-Glance Quick Desk Reference: National Heart, Lung, and Blood [place]. National Institutes of Health. 2001: NIH Publication No. 01-3305. 2. An International Atherosclerosis Society position paper: global recommendations for the management of dyslipidemia: executive summary, Atherosclerosis. 2014: 232(2):410-413. Performed By: #### CBCDIF, CMP, LIPB, HBA1C #### [facility] [employer] [address] [place], [place] [address] HEMOGLOBIN A1C Collected: 06/28/2017 Status: F Source: [facility] 4:10 PM [facility] REPOSITORY TYPE CODE TESTS RESULT OUT OF REFERENCE UNITS RANGE LAB HGBA1C 4.3-5.6 % High Hemoglobin A1c 7.1 LAB HBA0 mg/dL Est. Average Glucose 157 Result Comment: eAG: (Estimated average glucose) is a calculated value from HgbA1c and is welding equipment sales representative of the average blood glucose level in the last 2-3 month period. Performed By: #### CBCDIF, CMP, LIPB, HBA1C #### [facility] [employer] [address] [place], [place] [address] TYPE AND SCREEN Collected: 06/28/2017 Status: F Source: [facility] 4:10 [facility] REPOSITORY TYPE CODE TESTS RESULT OUT OF REFERENCE UNITS RANGE LAB %ABR A ABO/RH(D) NEGATIVE LAB % Antibody NEG Screen Performed By: #### TSCR #### [facility] [employer] [address] [place], [place] [address] CNOV Observed: 06/28/2017 Status: COMPLETED Source: [facility] 4:00 PM [facility] REPOSITORY Office Visit (TXCTGL) JIMENEZ GANDARA ([id number]) 1945 M TRN Date Time Provider Department 06/28/17 4:00 PM [facility]Y [facility] TXCT[facility] During your visit today, we recorded the following information about you: Temperature Pulse Blood pressure Weight 98.1 degrees 69/minute 182/80 98 kg Height 1.727 m Brandon Howard MD 06/28/2017 12:31 PM Signed [facility] [place] [facility] Transplant Evaluation CC: Patient is a 72 year old male here for transplant candidacy evaluation. Reason for visit: here for evaluation to be a Kidney Transplant recipient. Referred by: Mary Mix DO ([facility]) [address] [address] I will communicate with the referring provider by letter and/or shared electronic medical record. 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 Preemptive SCr 3.2mg/dL eGFR 20ml/min. Denies UTI/Pyelo, stones, hematuria, tb or surgery. No [place], CVA, arrythmia. PAOD (TIA non-embolic, CVA non-embolic, amputation, carotid artery stenosis, abnormal PVRs, claudication history, decreased pulses, etc.):No Stroke: NO Claudication: NO Carotid Artery Stenosis: NO Malignancy (including skin cancer): No Hypercoagulable (history of DVT/PE, miscarriages, prior use of anticoagulation, etc.):No Prior transplant: No CKD: Yes: Cause of CKD: DM Living Donors: possibly his Residual UO: yes No DM: Yes Diagnosed at age 52, Type 2, Therapies: diet and Secondary complications: hypertension and nephropathy PAST MEDICAL HISTORY Diagnosis Date - Allergic rhinitis, cause unspecified Allergic rhinitis - Diabetes mellitus without mention of complication Diabetes mellitus - High cholesterol - Hypertension - Mixed hyperlipidemia Hyperlipidemia PAST SURGICAL HISTORY Procedure Laterality Date - OTHER wisdom teeth removal Current Outpatient Prescriptions: glimepiride (AMARYL) 4 mg tablet TAKE ONE TABLET BY MOUTH ONCE DAILY WITH BREAKFAST sitaGLIPtin-metFORMIN (JANUMET) 50-500 mg per tablet Take one pill daily losartan-hydrochlorothiazide (HYZAAR) 100-25 mg per tablet Take 1 tablet by mouth once daily. metFORMIN (GLUCOPHAGE) 500 mg tablet Take 1 tablet by mouth once daily. . diltiazem CD (CARDIZEM CD) 120 mg 24 hr capsule Take 1 capsule by mouth once daily. canagliflozin (INVOKANA) 100 mg tab Take 1 tablet by mouth daily before breakfast. cetirizine (ZYRTEC) 10 mg tablet Take one(1) tablet daily. doxycycline (VIBRA-TABS) 100 mg tablet Take one(1) tablet twice daily. pioglitazone (ACTOS) 30 mg tablet Take one(1) tablet daily. atorvastatin (LIPITOR) 40 mg tablet Take 1 tablet by mouth daily at bedtime. For cholesterol. Tadalafil (CIALIS) 20 mg tablet Take 1 tablet by mouth once daily. desonide (DESOWEN) 0.05 % cream Apply 1 application to affected area twice daily. No current facility-administered medications for this visit. FAMILY HISTORY Problem Relation Age of Onset - Stroke Mother - Hypertension Father Relation Status Comments Mo Fa Social History Marital status: Spouse name: Years of education: Number of children: Social History Main Topics Smoking status: Former Smoker Packs/day: 0.00 Years: 0.00 Smokeless status: Never Used Comment: Quit 10 years ago Alcohol use: Yes Comment: ocassionally Drug use: No Sexual activity: Yes Partners with: Female Pre-transplant testing: Cardiac: Echocardiogram: 03/31/2017 Summary: Left ventricular systolic function is normal The estimated EF is 55% Mild (1+) tricuspid valve insufficiency Pulmonary Artery systolic presents is 30 mmhg Exersice Stress Test 04/06/2017 The patient exercised according to the ERROL for 4:00 mins, achieving a work level of Max. METS: 5.80 the resting heart rate of 66 bpm jacinta to a maximal heart rate of 123 bpm This value represents 81% of the maximum age predicted heart rate. Resting BP 150/78 EKG Pending today CXR: 02/28/2017 Impression No evidence of acute cardiopulmonary pathology Colonoscopy: Need to obtain Sensitizations: Prior transplant: No Blood transfusions: No Immunizations: HBV series: Not received, patient encouraged to obtain Pneumovax: Received, date 06/28/2017 Influenza vaccine: Not received, patient encouraged to obtain Maddie Cantu RN STAFF: I have interviewed the patient and have confirmed the above historical details. REVIEW OF SYSTEMS: GENERAL: No weight loss, malaise or fevers All other reviewed and negative other than HPI. ID: Denies major infections Hepatitis: No Malignancy: No Physical Exam: BP 182/80 (BP Site: Left Arm, BP Position: Sitting, BP Cuff Size: Large Adult) Pulse 69 Temp 36.7 ?C (98.1 ?F) (Temporal Artery) Ht 172.7 cm (5' 8ANDquot;) Wt 98 kg (216 lb) SpO2 99% BMI 32.84 kg/m2 Body mass index is 32.84 kg/(m2). GENERAL APPEARANCE:Healthy, alert, no distress, cooperative, Smiling SKIN:Skin color, texture, turgor normal. No rashes or lesions. HEENT:PERRL, EOMI, and normal dentition NECK:No jugulovenous distention, No carotid bruits, Carotid pulse normal contour, Supple NODES:no adenopathy HEART:Normal S1 and S2; no rubs, murmurs, or gallops LUNGS:Lungs clear to auscultation. Good diaphragmatic excursion. ABDOMEN:Abdomen soft, non-tender. BS normal. No masses or organomegaly. BACK: CVA tenderness- No, flank pain-No EXTREMITIES:Extremities normal. No deformities, edema, clubbing or skin discoloration. GENITALIA MALE EXAM:Normal circumcised penis, normal limit meatus, NORMAL TESTICULAR EXAM, NORMAL EPIDIDYMAL EXAM, palpable vas bilaterally and no hernia detected bilaterally PULSES:2+ radial, 2+ femoral, 2+ carotid NEURO:Cranial nerves II-XII intact, Gait normal. Reflexes normal and symmetric. Sensation grossly intact. The patient is a 72 year old male potential candidate for kidney transplantation. ? 1.? The Advantages and disadvantages of renal transplantation versus dialysis were reviewed. ? 2.? We discussed the operative procedure and potential complications, particularly in regard to the need for re-operation. I discussed the use of tubes and drains; and addressed issues of? post-operative recovery and the absolute necessity of follow-up. ? 3.? We discussed the need for lifelong immunosuppressive therapy and the risk associated with this treatment. The use of induction and maintenance therapy, and the approach to rejection were outlined. 4.? Discussed the various sources of donor kidneys which included: ?a. LD vs.DD options and wait list ?b. SCD, MACHINE PLASTER MIXER and DCD kidneys ?c. CDC high risk donors d. Pediatric and adult dual transplants The patient expresses an understanding of the medical information presented. Recommend: ? 1. Routine serology and labs 2. Cardiac testing: No invasive stress testing 3. Screening Abdominal and Pelvic CT scans: WO i.v. contrast 4. Need VCUG: No 5. Colonoscopy update: Yes 6. Avoid blood transfusions. 7. Had some LUTS in the past given tamsulosin, has resolved. Brandon Howard MD Referring Provider: MARY MIX I [[id number]] Allergies As of Date: 06/28/2017 Noted Allergy Reaction DUST 12/11/2004 Date Reviewed: 06/28/2017 Reviewed by: Kendy Posey Ma - Fully Assessed Reason for Visit: Transplant Evaluation [[id number]] Primary Visit Diagnosis:Pre-transplant evaluation for ESRD (end stage renal disease) [Z01.818] Other Visit Diagnoses:Controlled type 2 diabetes mellitus without complication, without long-term current use of insulin (HCC) [E11.9] Mixed hyperlipidemia [E78.2] Obesity due to excess calories with serious comorbidity, unspecified classification [E66.09] Secondary hypertension [I15.9] Prescriptions as of 06/28/2017 Sig: AMLODIPINE 5 MG-BENAZEPRIL 10* Take 1 capsule by mouth once * LOSARTAN 100 MG TABLET Take 100 mg by mouth once jeniffer* CARVEDILOL 12.5 MG TABLET Take 12.5 mg by mouth twice d* DULAGLUTIDE 1.5 MG/0.5 ML SUB* Inject subcutaneously. one ti* LINAGLIPTIN 5 MG TABLET Take by mouth once daily. CALCITRIOL ORAL Take 0.5 mg by mouth once jeniffer* VITAMIN D (WITH CALCIUM) ORAL Take 1.25 mg by mouth once ev* FERROUS SULFATE 325 MG (65 MG* Take 325 mg by mouth daily wi* ATORVASTATIN 40 MG TABLET Take 1 tablet by mouth daily * Problem List As Of Date 06/28/2017 Noted Resolved Controlled type 2 diabetes mellitus without com*INVALID FOR* ALLERGIC RHINITIS NOS [J30.9] INVALID FOR* Mixed hyperlipidemia [E78.2] INVALID FOR* Obesity due to excess calories with serious com*INVALID FOR* Bladder Neck Obstruction [N32.0] INVALID FOR* BPH w Urinary Obs/LUTS [N40.1] INVALID FOR* Impotence of Organic Origin [N52.9] INVALID FOR* Diabetes Mellitus [E11.9] INVALID FOR* Incontinence of urine [R32] INVALID FOR* Essential hypertension [I10] INVALID FOR* Pre-transplant evaluation for ESRD (end stage r*INVALID FOR* Secondary hypertension [I15.9] INVALID FOR* Encounter Status:Closed by BRANDON HOWARD MD on 06/28/17 CNOV Observed: 06/28/2017 Status: COMPLETED Source: [facility] 3:15 PM [facility] RE[facility]ITORY Office Visit (TXCTGL) JIMENEZ GANDARA ([id number]) 1945 M TRN Date Time Provider Department 06/28/17 3:15 PM NEPHROLOGY [facility] TXCTGL During your visit today, we recorded the following information about you: Temperature Pulse Blood pressure Weight 98.1 degrees 70/minute 190/82 98 kg Height 1.727 m Luiz Perez MD 06/28/2017 3:19 PM Signed [facility] [place] [facility] Transplant Evaluation CC: Patient is a 72 year old male here for transplant candidacy evaluation. Reason for visit: here for evaluation to be a Kidney Transplant recipient. Referred by: Mary Mix DO ([facility]) [address] [facility] [address] [address] I will communicate with the referring provider by letter and/or shared electronic medical record. HPI: 72 yo male with a history of - CKD stage 4- proteinuric, believed to be from DM/HTn, not on dialysis yet - DM for 20 years- managed by PO meds + diet- not on insulin - Hypertension for 4 years - Documented non compliance with medications in the past - Admission in 02/2017 with hypertensive urgency SBP 220s-- better after med adjustment Patient has become more compliant, A1C and BP well controlled now. Lost about 37 pounds intentionally - Obesity- BMI used to be 37- now 32 presented for evaluation of renal transplant candidacy. Prior transplants- none Living donors- possible , 4 children Cardiac- Stress test- exercise- MPHR 81% Screening- need to obtain colonoscopy records Activity- Goes to gym 3 times a week, exercises for 1 hour, walks on treadmill for 40 minutes and strength training PAOD (TIA non-embolic, CVA non-embolic, amputation, carotid artery stenosis, abnormal PVRs, claudication history, decreased pulses, etc.):No Stroke: NO Claudication: NO Carotid Artery Stenosis: NO Malignancy (including skin cancer): No Hypercoagulable (history of DVT/PE, miscarriages, prior use of anticoagulation, etc.):No Prior transplant: No CKD: Yes: Cause of CKD: DM Living Donors: possibly his Residual UO: yes No DM: Yes Diagnosed at age 52, Type 2, Therapies: diet and Secondary complications: hypertension and nephropathy PAST MEDICAL HISTORY Diagnosis Date - Allergic rhinitis, cause unspecified Allergic rhinitis - Diabetes mellitus without mention of complication Diabetes mellitus - High cholesterol - Hypertension - Mixed hyperlipidemia Hyperlipidemia PAST SURGICAL HISTORY Procedure Laterality Date - OTHER wisdom teeth removal Current Outpatient Prescriptions: glimepiride (AMARYL) 4 mg tablet TAKE ONE TABLET BY MOUTH ONCE DAILY WITH BREAKFAST sitaGLIPtin-metFORMIN (JANUMET) 50-500 mg per tablet Take one pill daily losartan-hydrochlorothiazide (HYZAAR) 100-25 mg per tablet Take 1 tablet by mouth once daily. metFORMIN (GLUCOPHAGE) 500 mg tablet Take 1 tablet by mouth once daily. . diltiazem CD (CARDIZEM CD) 120 mg 24 hr capsule Take 1 capsule by mouth once daily. canagliflozin (INVOKANA) 100 mg tab Take 1 tablet by mouth daily before breakfast. cetirizine (ZYRTEC) 10 mg tablet Take one(1) tablet daily. doxycycline (VIBRA-TABS) 100 mg tablet Take one(1) tablet twice daily. pioglitazone (ACTOS) 30 mg tablet Take one(1) tablet daily. atorvastatin (LIPITOR) 40 mg tablet Take 1 tablet by mouth daily at bedtime. For cholesterol. Tadalafil (CIALIS) 20 mg tablet Take 1 tablet by mouth once daily. desonide (DESOWEN) 0.05 % cream Apply 1 application to affected area twice daily. No current facility-administered medications for this visit. FAMILY HISTORY Problem Relation Age of Onset - Stroke Mother - Hypertension Father Relation Status Comments Mo Fa Social History Marital status: Spouse name: Years of education: Number of children: Social History Main Topics Smoking status: Former Smoker Packs/day: 0.00 Years: 0.00 Smokeless status: Never Used Comment: Quit 10 years ago Alcohol use: Yes Comment: ocassionally Drug use: No Sexual activity: Yes Partners with: Female Pre-transplant testing: Cardiac: Echocardiogram: 03/31/2017 Summary: Left ventricular systolic function is normal The estimated EF is 55% Mild (1+) tricuspid valve insufficiency Pulmonary Artery systolic presents is 30 mmhg Exersice Stress Test 04/06/2017 The patient exercised according to the ERROL for 4:00 mins, achieving a work level of Max. METS: 5.80 the resting heart rate of 66 bpm jacinta to a maximal heart rate of 123 bpm This value represents 81% of the maximum age predicted heart rate. Resting BP 150/78 EKG Pending today CXR: 02/28/2017 Impression No evidence of acute cardiopulmonary pathology Colonoscopy: Need to obtain Sensitizations: Prior transplant: No Blood transfusions: No Immunizations: HBV series: Not received, patient encouraged to obtain Pneumovax: Received, date 06/28/2017 Influenza vaccine: Not received, patient encouraged to obtain Maddie Cantu RN Transplant fellow note- REVIEW OF SYSTEMS: PAIN ASSESSMENT: Negative for pain, history of chronic pain, or current treatment for a chronic pain condition. GENERAL: No weight loss, malaise or fevers HEENT: Negative for frequent or significant headaches, No changes in hearing or vision, no nose bleeds or other nasal problems NECK: Negative for lumps, goiter, pain and significant neck swelling RESPIRATORY: Negative for cough, hemoptysis, wheezing, COPD, dyspnea or shortness of breath CARDIOVASCULAR: Negative for chest pain, leg swelling, hypertension, CHF or palpitations GI: No nausea, vomiting, or diarrhea : No history of dysuria, frequency or incontinence MUSCULOSKELETAL: Negative for joint pain or swelling, back pain or muscle pain SKIN: Negative for lesions, rash, and itching PSYCH: Negative for sleep disturbance, mood disorder and recent psychosocial stressors HEMATOLOGY/LYMPHOLOGY: Negative for prolonged bleeding, bruising easily or swollen nodes ENDOCRINE: Positive for diabetes mellitus on oral agent NEURO: No history of headaches, syncope, paralysis, seizures or tremors ID: No diabetic foot ulcers Hepatitis: No Malignancy (including skin cancer): No PAOD (TIA non-embolic, CVA non-embolic, amputation, carotid artery stenosis, abnormal PVRs, claudication history, decreased pulses, etc.):No Hypercoagulable (history of DVT/PE, miscarriages, prior use of anticoagulation, etc.):No Functional capacity: ANDgt;4.0, ANDlt;8.0 moderate effort such as carrying 15lb KARNOFSKY INDEX SCALE (Adult patients aged 18 and older) - Used to rate a patient's functional status before and after a medical procedure: 80 - Normal activity with effort: some signs or symptoms of disease. PHYSICAL EXAMINATION: BP 190/82 (BP Site: Left Arm, BP Position: Sitting, BP Cuff Size: Regular Adult) Pulse 70 Temp 36.7 ?C (98.1 ?F) (Temporal Artery) Ht 172.7 cm (5' 8ANDquot;) Wt 98 kg (216 lb) SpO2 98% BMI 32.84 kg/m2 Body mass index is 32.84 kg/(m2). Constitutional: Alert and oriented, obese body habitus, well nourished Eyes: no pallor, no icterus Ear, Nose, and Throat: moist oral mucosa, good dental hygiene Neck:- no JVD, no carotid bruit Cardiovascular:Regular rate and rhythm, soft systolic Murmur on parasternal border, no edema, palpable peripheral pulses Respiratory: Clear to auscultation bilaterally, normal respiratory effort Abdomen:Soft, non tender, non distended, active bowel sounds Musculoskeletal: No clubbing or cyanosis of digits., Normocephalic. and No muscle weakness, joint tenderness, or joint effusions. Neurologic: Non focal exam Psychiatric: Alert and oriented x self, place, time, and setting Normal mood/affect Labs/Studies: Impression: 72 year old male here for evaluation of candidacy for transplantation. We had the opportunity to discuss the following, specific for this patient: Risks and benefits of transplantation including overall average increase in life expectancy and higher quality of life with transplantation for most recipients; Types of donor organs discussed with patient, including Living donor (if appropriate), , expanded criteria, donor cardiac (DCD) and CDC-High risk donor types, with relative benefit of living donation over donor transplantation explained. Exploration of potential donors done with patient; Lengthy discussion regarding Immunosuppression following transplantation. I explained our usual protocols, drugs involved, administration and monitoring. This included the risks of infection, possibly life threatening, and malignancy; Patient expresses understanding of the information discussed. Given his current issues, we plan: 1. To repeat treadmill stress test- can get stress EKG- last stress test reached MPHR of 81% 2. Colonoscopy- patient will schedule 3. ID consult [facility] [place] Has right renal exophytic lesion- ?complext cyst- follow US per Urology Patient is a well appearing [place] male- appears younger than his age. Was non compliant with his care in the past but has now become more diligent. Lost 35+ kg, HbA1C improved from 9.7 to 6.9, BP in better control. 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 Has LDs. His GFR declined from 40s in 2013 to 20s in 2017- rapid decline. No NSAID use. So he will benefit from a pre-emptive transplant. Has exophytic right renal lesion- described as 'complex cyst' on US in 02/2017- will need follow up US per Urology Overall, he appears to be a good transplant candidate. Cancer Screening: Type of Cancer: Screening Criteria: Cervical Females age 21-29: PAP Q3yrs; HPV if PAP abnormal Females age 30-65: PAP ANDamp; HPV Q5yrs; OR PAP only Q3yrs Breast Females age 20-39: Clinical Breast Exam Q3yrs Females age 40+: Mammogram ANDamp; Clinical Breast Exam Q1yr Prostate Males age 40+: PSA will be checked at evaluation Colon All patients age 50+: colonoscopy Q10yrs or as recommended based on results Lung Patients meeting all of the following criteria will be scheduled for a Chest CT without Contrast at evaluation if they have not had a Chest CT within the past year: 1. Age 55-74 2. Have at least a 30 pack-year smoking history 3. Are still smoking OR have quit smoking within the last 15 yrs Patients that do not meet the criteria above or who had a Chest CT within the past year will have a CXR PA ANDamp; Lat at evaluation. Skin All patients: Skin will be examined at evaluation Based upon the above screening criteria, the patient will require: PSA with Evaluation Colonoscopy Pharmacy Consult: Not needed at this time Opportunity to ask questions given. Appears to understand. Communication with referring provider done by letter. Amara Pereira MD Fellow, Transplant Nephrology I have seen and examined the patient with Dr. Pereira. I have confirmed the duncan portions of the history and physical above. I agree with the Assessment and Plan as outlined above. In addition: patient has a very obese abdomen, encouraged him to continue to lose weight. His GFR is right around 20 currently but may be able to list now and decide on living donors later. Agree R renal cyst will need further eval prior to transplantation. Agree with further testing as above. Signed: Luiz Perez MD Referring Provider: MARY MIX I [[id number]] Allergies As of Date: 06/28/2017 Noted Allergy Reaction DUST 12/11/2004 Date Reviewed: 06/28/2017 Reviewed by: Luiz Perez - Fully Assessed Reason for Visit: Transplant Evaluation [427] Primary Visit Diagnosis:Pre-transplant evaluation for ESRD (end stage renal disease) [Z01.818] Other Visit Diagnosis:CKD (chronic kidney disease) stage 4, GFR 15-29 ml/min (HCC) [N18.4] Prescriptions as of 06/28/2017 Sig: AMLODIPINE 5 MG-BENAZEPRIL 10* Take 1 capsule by mouth once * LOSARTAN 100 MG TABLET Take 100 mg by mouth once jeniffer* CARVEDILOL 12.5 MG TABLET Take 12.5 mg by mouth twice d* DULAGLUTIDE 1.5 MG/0.5 ML SUB* Inject subcutaneously. one ti* LINAGLIPTIN 5 MG TABLET Take by mouth once daily. CALCITRIOL ORAL Take 0.5 mg by mouth once jeniffer* VITAMIN D (WITH CALCIUM) ORAL Take 1.25 mg by mouth once ev* FERROUS SULFATE 325 MG (65 MG* Take 325 mg by mouth daily wi* ATORVASTATIN 40 MG TABLET Take 1 tablet by mouth daily * Problem List As Of Date 06/28/2017 Noted Resolved Controlled type 2 diabetes mellitus without com*INVALID FOR* ALLERGIC RHINITIS NOS [J30.9] INVALID FOR* Mixed hyperlipidemia [E78.2] INVALID FOR* Obesity due to excess calories with serious com*INVALID FOR* Bladder Neck Obstruction [N32.0] INVALID FOR* BPH w Urinary Obs/LUTS [N40.1] INVALID FOR* Impotence of Organic Origin [N52.9] INVALID FOR* Diabetes Mellitus [E11.9] INVALID FOR* Incontinence of urine [R32] INVALID FOR* Essential hypertension [I10] INVALID FOR* Pre-transplant evaluation for ESRD (end stage r*INVALID FOR* Secondary hypertension [I15.9] INVALID FOR* Medications Discontinued During This Encounter canagliflozin (INVOKANA) 100 mg tab 90 t* 3 06/25/2015 06/28/2017 Class: Print RX Route: ORAL Sig: Take 1 tablet by mouth daily before breakfast. Disc: Reason for discontinue is not on file. cetirizine (ZYRTEC) 10 mg tablet 90 t* 3 06/25/2015 06/28/2017 Class: Print RX Sig: Take one(1) tablet daily. Disc: Reason for discontinue is not on file. desonide (DESOWEN) 0.05 % cream 180 g 3 03/14/2014 06/28/2017 Class: Print RX Route: TOPICAL Sig: Apply 1 application to affected area twice daily. Disc: Reason for discontinue is not on file. diltiazem CD (CARDIZEM CD) 120 mg 24* 30 c* 5 10/31/2015 06/28/2017 Route: ORAL Sig: Take 1 capsule by mouth once daily. Disc: Reason for discontinue is not on file. glimepiride (AMARYL) 4 mg tablet 90 t* 0 12/09/2016 06/28/2017 Sig: TAKE ONE TABLET BY MOUTH ONCE DAILY WITH BREAKFAST Disc: Reason for discontinue is not on file. doxycycline (VIBRA-TABS) 100 mg tabl* 180 * 3 06/25/2015 06/28/2017 Class: Print RX Sig: Take one(1) tablet twice daily. Disc: Reason for discontinue is not on file. losartan-hydrochlorothiazide (HYZAAR* 90 t* 0 12/09/2016 06/28/2017 Route: ORAL Sig: Take 1 tablet by mouth once daily. Disc: Reason for discontinue is not on file. metFORMIN (GLUCOPHAGE) 500 mg tablet 90 t* 0 09/21/2016 06/28/2017 Route: ORAL Sig: Take 1 tablet by mouth once daily. . Disc: Reason for discontinue is not on file. pioglitazone (ACTOS) 30 mg tablet 90 t* 3 06/25/2015 06/28/2017 Class: Print RX Sig: Take one(1) tablet daily. Disc: Reason for discontinue is not on file. sitaGLIPtin-metFORMIN (JANUMET) 50-5* 180 * 0 12/09/2016 06/28/2017 Sig: Take one pill daily Disc: Reason for discontinue is not on file. Tadalafil (CIALIS) 20 mg tablet 6 ta* 6 06/25/2015 06/28/2017 Class: Print RX Route: ORAL Sig: Take 1 tablet by mouth once daily. Disc: Reason for discontinue is not on file. Encounter Status:Closed by LUIZ PEREZ MD on 06/28/17 CT ABD/PEL WO IVCON Observed: 06/28/2017 Status: F Source: RIO 12:51 PM [facility] REPOSITORY * * *Final Report* * * DATE OF EXAM: Jun 28 2017 12:51PM [facility] 0531 - CT ABD/PEL WO IVCON / PROCEDURE REASON: Other specified symptoms and signs involving the digestive system and abdomen * * * * Physician Interpretation * * * * EXAMINATION: CT ABDOMEN AND PELVIS WITHOUT IV CONTRAST CLINICAL HISTORY: Prerenal transplant TECHNIQUE: Non-IV contrast imaging of the abdomen and pelvis was performed, scanning from just above the level of the kidneys to the symphysis pubis. Unenhanced imaging is limited for the evaluation of some intra-abdominal and pelvic pathology. MQ: [id number]_[id number] Contrast: IV: None Oral: None CT Radiation dose: Integrated Dose-length product (DLP) for this visit = 261 mGy*cm. CT Dose Reduction Employed: Automated exposure control(AEC) and iterative recon COMPARISON: None. RESULT: Abdomen / Pelvis: Liver: Imaged portions are unremarkable. Biliary: Partially included gallbladder and biliary system is unremarkable. Spleen: No splenomegaly. Pancreas: The included pancreas is unremarkable. Adrenals: No mass. Kidneys: There is a 1.3 x 1.4 x 1.2 cm (AP by TV by CC) partially exophytic lesion at the right interpolar region measuring above water attenuation. There is a 2.5 cm low-attenuation lesion at the right upper pole, likely a renal cyst. No border deforming left renal mass. No calculus or hydronephrosis. GI Tract: Image segments are normal. No bowel dilation. Lymph Nodes: No lymphadenopathy. Mesentery/peritoneum: No ascites. Retroperitoneum: No mass. Vasculature: Aortic and iliac arteries and vascular calcifications: No abdominal aortic or iliac artery aneurysm. Abdominal aorta: Severe (nearly or completely circumferential) atherosclerotic calcification Right iliac: Common iliac artery: Moderate (greater than 50% circumference) atherosclerotic calcification External iliac artery: Mild (less than 50% circumferential) atherosclerotic calcification Internal iliac artery: Moderate (greater than 50% circumference) atherosclerotic calcification Left iliac: Common iliac artery: Moderate (greater than 50% circumference) atherosclerotic calcification External iliac artery: Mild (less than 50% circumferential) atherosclerotic calcification Internal iliac artery: Moderate (greater than 50% circumference) atherosclerotic calcification Pelvis: No mass or ascites. Bones/Soft Tissues: Scattered degenerative changes without acute or destructive osseous abnormality. Visualized soft tissue tissues of the abdominal wall are unremarkable. IMPRESSION: INDETERMINATE 1.4 CM ABOVE WATER ATTENUATION RIGHT RENAL LESION. FURTHER CHARACTERIZATION WITH ULTRASOUND IS RECOMMENDED. ATHEROSCLEROTIC CALCIFICATIONS DETAILED. Manufacturing Assembler: ML Transcribe Date/Time: Jun 28 2017 1:28P Dictated by : NING TAM MD This examination was interpreted and the report reviewed and electronically signed by: SATISH FAUSTIN MD on Jun 28 2017 2:56PM EST [id number] PROGRESS Observed: 06/28/2017 Status: COMPLETED Source: RIO 12:47 PM [facility] REPOSITORY [facility] ID: [id number] Author: Servando Wolf Service: (none) Author Type: (none) Type: Progress Notes Filed: 06/28/2017 12:48 PM Note Text: Radiology Service Progress Note PATIENT NAME: Jimenez Gandara DATE OF SERVICE: June 28, 2017 TIME: 12:47 PM PATIENT IDENTITY VERIFICATION COMPLETED USING TWO (2) METHODS: Patient confirmed name verbally and ID band matches.. PATIENT GENDER DATA: Male PATIENT RELEVANT IMPLANT DATA REVIEWED: Yes RADIOLOGY DEPARTMENT: CT; Exam(s) Completed: Abdomen/Pelvis PERIPHERAL IV DATA: Not applicable SIGNED BY: Servando Wolf June 28, 2017 12:47 PM PROGRESS Observed: 06/28/2017 Status: COMPLETED Source: RIO 12:07 PM [facility] REPOSITORY HNO ID: [id number] Author: Brandon Howard Service: (none) Author Type: Physician Type: Progress Notes Filed: 06/28/2017 12:31 PM Note Text: [facility] Transplant Evaluation CC: Patient is a 72 year old male here for transplant candidacy evaluation. Reason for visit: here for evaluation to be a Kidney Transplant recipient. Referred by: Mary Mix DO ([facility]) [facility] Fatuma Dailey [address] [address] I will communicate with the referring provider by letter and/or shared electronic medical record. 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 Preemptive SCr 3.2mg/dL eGFR 20ml/min. Denies UTI/Pyelo, stones, hematuria, tb or surgery. No [place], CVA, arrythmia. PAOD (TIA non-embolic, CVA non-embolic, amputation, carotid artery stenosis, abnormal PVRs, claudication history, decreased pulses, etc.):No Stroke: NO Claudication: NO Carotid Artery Stenosis: NO Malignancy (including skin cancer): No Hypercoagulable (history of DVT/PE, miscarriages, prior use of anticoagulation, etc.):No Prior transplant: No CKD: Yes: Cause of CKD: DM Living Donors: possibly his Residual UO: yes No DM: Yes Diagnosed at age 52, Type 2, Therapies: diet and Secondary complications: hypertension and nephropathy PAST MEDICAL HISTORY Diagnosis Date - Allergic rhinitis, cause unspecified Allergic rhinitis - Diabetes mellitus without mention of complication Diabetes mellitus - High cholesterol - Hypertension - Mixed hyperlipidemia Hyperlipidemia PAST SURGICAL HISTORY Procedure Laterality Date - OTHER wisdom teeth removal Current Outpatient Prescriptions: glimepiride (AMARYL) 4 mg tablet TAKE ONE TABLET BY MOUTH ONCE DAILY WITH BREAKFAST sitaGLIPtin-metFORMIN (JANUMET) 50-500 mg per tablet Take one pill daily losartan-hydrochlorothiazide (HYZAAR) 100-25 mg per tablet Take 1 tablet by mouth once daily. metFORMIN (GLUCOPHAGE) 500 mg tablet Take 1 tablet by mouth once daily. . diltiazem CD (CARDIZEM CD) 120 mg 24 hr capsule Take 1 capsule by mouth once daily. canagliflozin (INVOKANA) 100 mg tab Take 1 tablet by mouth daily before breakfast. cetirizine (ZYRTEC) 10 mg tablet Take one(1) tablet daily. doxycycline (VIBRA-TABS) 100 mg tablet Take one(1) tablet twice daily. pioglitazone (ACTOS) 30 mg tablet Take one(1) tablet daily. atorvastatin (LIPITOR) 40 mg tablet Take 1 tablet by mouth daily at bedtime. For cholesterol. Tadalafil (CIALIS) 20 mg tablet Take 1 tablet by mouth once daily. desonide (DESOWEN) 0.05 % cream Apply 1 application to affected area twice daily. No current facility-administered medications for this visit. FAMILY HISTORY Problem Relation Age of Onset - Stroke Mother - Hypertension Father Relation Status Comments Mo Fa Social History Marital status: Spouse name: Years of education: Number of children: Social History Main Topics Smoking status: Former Smoker Packs/day: 0.00 Years: 0.00 Smokeless status: Never Used Comment: Quit 10 years ago Alcohol use: Yes Comment: ocassionally Drug use: No Sexual activity: Yes Partners with: Female Pre-transplant testing: Cardiac: Echocardiogram: 03/31/2017 Summary: Left ventricular systolic function is normal The estimated EF is 55% Mild (1+) tricuspid valve insufficiency Pulmonary Artery systolic presents is 30 mmhg Exersice Stress Test 04/06/2017 The patient exercised according to the ERROL for 4:00 mins, achieving a work level of Max. METS: 5.80 the resting heart rate of 66 bpm jacinta to a maximal heart rate of 123 bpm This value represents 81% of the maximum age predicted heart rate. Resting BP 150/78 EKG Pending today CXR: 02/28/2017 Impression No evidence of acute cardiopulmonary pathology Colonoscopy: Need to obtain Sensitizations: Prior transplant: No Blood transfusions: No Immunizations: HBV series: Not received, patient encouraged to obtain Pneumovax: Received, date 06/28/2017 Influenza vaccine: Not received, patient encouraged to obtain Maddie Cantu RN STAFF: I have interviewed the patient and have confirmed the above historical details. REVIEW OF SYSTEMS: GENERAL: No weight loss, malaise or fevers All other reviewed and negative other than HPI. ID: Denies major infections Hepatitis: No Malignancy: No Physical Exam: BP 182/80 (BP Site: Left Arm, BP Position: Sitting, BP Cuff Size: Large Adult) Pulse 69 Temp 36.7 ?C (98.1 ?F) (Temporal Artery) Ht 172.7 cm (5' 8) Wt 98 kg (216 lb) SpO2 99% BMI 32.84 kg/m2 Body mass index is 32.84 kg/(m2). GENERAL APPEARANCE:Healthy, alert, no distress, cooperative, Smiling SKIN:Skin color, texture, turgor normal. No rashes or lesions. HEENT:PERRL, EOMI, and normal dentition NECK:No jugulovenous distention, No carotid bruits, Carotid pulse normal contour, Supple NODES:no adenopathy HEART:Normal S1 and S2; no rubs, murmurs, or gallops LUNGS:Lungs clear to auscultation. Good diaphragmatic excursion. ABDOMEN:Abdomen soft, non-tender. BS normal. No masses or organomegaly. BACK: CVA tenderness- No, flank pain-No EXTREMITIES:Extremities normal. No deformities, edema, clubbing or skin discoloration. GENITALIA MALE EXAM:Normal circumcised penis, normal limit meatus, NORMAL TESTICULAR EXAM, NORMAL EPIDIDYMAL EXAM, palpable vas bilaterally and no hernia detected bilaterally PULSES:2+ radial, 2+ femoral, 2+ carotid NEURO:Cranial nerves II-XII intact, Gait normal. Reflexes normal and symmetric. Sensation grossly intact. The patient is a 72 year old male potential candidate for kidney transplantation. ? 1.? The Advantages and disadvantages of renal transplantation versus dialysis were reviewed. ? 2.? We discussed the operative procedure and potential complications, particularly in regard to the need for re-operation. I discussed the use of tubes and drains; and addressed issues of? post-operative recovery and the absolute necessity of follow-up. ? 3.? We discussed the need for lifelong immunosuppressive therapy and the risk associated with this treatment. The use of induction and maintenance therapy, and the approach to rejection were outlined. 4.? Discussed the various sources of donor kidneys which included: ?a. LD vs.DD options and wait list ?b. SCD, MACHINE PLASTER MIXER and DCD kidneys ?c. CDC high risk donors d. Pediatric and adult dual transplants The patient expresses an understanding of the medical information presented. Recommend: ? 1. Routine serology and labs 2. Cardiac testing: No invasive stress testing 3. Screening Abdominal and Pelvic CT scans: WO i.v. contrast 4. Need VCUG: No 5. Colonoscopy update: Yes 6. Avoid blood transfusions. 7. Had some LUTS in the past given tamsulosin, has resolved. Brandon Howard MD PROGRESS Observed: 06/28/2017 Status: COMPLETED Source: RIO 11:19 AM [facility] REPOSITORY [facility] ID: [id number] Author: Trish Ayers Service: (none) Author Type: Registered Dietitian Type: Progress Notes Filed: 06/28/2017 11:20 AM Note Text: AMBULATORY PATIENT EDUCATION NOTE - Shared Nutrition Group TOPIC: Pre-transplant nutrition evaluation for kidney recipient. PRE-CLASS SCREEN: 1. Have you had any unintentional weight loss in the last 3 months? No 2. Are you having difficulty chewing or swallowing?No 3. Have you had a decrease in your intake or poor appetite greater than 2 weeks? No READINESS TO LEARN: Cognitive Ability: Alert and oriented Motivation To Learn: Eager Family Support: High - Very involved in pt care Instruction Provided To: Patient and Spouse Patient Learns Best By: Multiple Methods Factors Affecting Learning: None Physical Limitations Affecting Learning: None Method of Instruction: Group class LEARNING RESPONSE Patient/Family verbalizes understanding of pre-operative instructions and correct actions to take to follow pre-operative instructions. Nutrition Diagnosis: Food and nutrition related knowledge deficit, related to; lack of prior exposure to information , as evidenced by client has no prior knowledge of need for food and nutrition - related information There is no height or weight on file to calculate BMI. Resting Metabolic Rate: Resting Metabolic Rate: 1859 Educational materials provided: Sodium controlled guidelines and Healthy Plate Patient participated in a pre-transplant shared nutrition group class which reviewed the following nutrition principles: 1. Try to eat 4-5 small meals/snacks daily. 2. Combine a lean protein with a complex carbohydrate for improved energy levels. 3. Limit sodium intake by avoiding frozen meals and take-out food. 4. Consider a liquid supplement if you are unable to tolerate solid foods 5. Choose whole foods whenever possible. If choosing processed foods (boxed, canned, frozen, etc), look for those with no added salt or sugar. If choosing frozen dinners, choose those with less than 600 milligrams sodium. Patient's nutrition status during pretransplant evaluation demonstrates no contra indications for transplantation. Patient is to follow-up with nutrition services after surgery. Referred/Supervised by: [facility] Billing Type: Initial Assessment/15 minutes, 3 increment(s), 45 minutes SIGNATURE: Trish Ayers RD PATIENT NAME: Jimenez Gandara DATE: June 28, 2017 TIME: 11:19 AM PAGER: [phone] CNCNPATED Observed: 06/28/2017 Status: COMPLETED Source: RIO 10:15 AM [facility] REPOSITORY Education ([facility]) JIMENEZ GANDARA ([id number]) 1945 M TRN Date Time Provider Department 06/28/17 10:15 AM TRISH AYERS ([facility]) [facility] Reason for Visit: Patient Education [91] Reassessment [674] Progress Notes: Trish Ayers RD 06/28/2017 11:20 AM Signed AMBULATORY PATIENT EDUCATION NOTE - Shared Nutrition Group TOPIC: Pre-transplant nutrition evaluation for kidney recipient. PRE-CLASS SCREEN: 1. Have you had any unintentional weight loss in the last 3 months? No 2. Are you having difficulty chewing or swallowing?No 3. Have you had a decrease in your intake or poor appetite greater than 2 weeks? No READINESS TO LEARN: Cognitive Ability: Alert and oriented Motivation To Learn: Eager Family Support: High - Very involved in pt care Instruction Provided To: Patient and Spouse Patient Learns Best By: Multiple Methods Factors Affecting Learning: None Physical Limitations Affecting Learning: None Method of Instruction: Group class LEARNING RESPONSE Patient/Family verbalizes understanding of pre-operative instructions and correct actions to take to follow pre-operative instructions. Nutrition Diagnosis: Food and nutrition related knowledge deficit, related to; lack of prior exposure to information , as evidenced by client has no prior knowledge of need for food and nutrition - related information There is no height or weight on file to calculate BMI. Resting Metabolic Rate: Resting Metabolic Rate: 1859 Educational materials provided: Sodium controlled guidelines and Healthy Plate Patient participated in a pre-transplant shared nutrition group class which reviewed the following nutrition principles: 1. Try to eat 4-5 small meals/snacks daily. 2. Combine a lean protein with a complex carbohydrate for improved energy levels. 3. Limit sodium intake by avoiding frozen meals and take-out food. 4. Consider a liquid supplement if you are unable to tolerate solid foods 5. Choose whole foods whenever possible. If choosing processed foods (boxed, canned, frozen, etc), look for those with no added salt or sugar. If choosing frozen dinners, choose those with less than 600 milligrams sodium. Patient's nutrition status during pretransplant evaluation demonstrates no contra indications for transplantation. Patient is to follow-up with nutrition services after surgery. Referred/Supervised by: [facility] Billing Type: Initial Assessment/15 minutes, 3 increment(s), 45 minutes SIGNATURE: Trish Ayers RD PATIENT NAME: Jimenez Gandara DATE: June 28, 2017 TIME: 11:19 AM PAGER: [phone] Primary Visit Diagnosis:Awaiting organ transplant status [Z76.82] Other Visit Diagnosis:Dietary counseling and surveillance [Z71.3] During your visit today, we recorded the following information about you: Allergies As of Date: 06/28/2017 Noted Allergy Reaction DUST 12/11/2004 Date Reviewed: 10/31/2015 Reviewed by: Kristen Roberts LPN - Fully Assessed Prescriptions as of 06/28/2017 Sig: GLIMEPIRIDE 4 MG TABLET TAKE ONE TABLET BY MOUTH ONCE* SITAGLIPTIN 50 MG-METFORMIN 5* Take one pill daily LOSARTAN 100 MG-HYDROCHLOROTH* Take 1 tablet by mouth once d* METFORMIN 500 MG TABLET Take 1 tablet by mouth once d* DILTIAZEM SR 120 MG 24 HR CAP Take 1 capsule by mouth once * CANAGLIFLOZIN 100 MG TABLET Take 1 tablet by mouth daily * CETIRIZINE 10 MG TABLET Take one(1) tablet daily. DOXYCYCLINE HYCLATE 100 MG TA* Take one(1) tablet twice pema* PIOGLITAZONE 30 MG TABLET Take one(1) tablet daily. ATORVASTATIN 40 MG TABLET Take 1 tablet by mouth daily * TADALAFIL 20 MG TABLET Take 1 tablet by mouth once d* DESONIDE 0.05 % TOPICAL CREAM Apply 1 application to affect* Encounter Status:Closed by TRISH AYERS on 06/28/17 PROGRESS Observed: 06/28/2017 Status: COMPLETED Source: RIO 10:03 AM [facility] REPOSITORY [facility] ID: [id number] Author: Moreno Medina (Rn) NORMA Cedillo Service: (none) Author Type: Registered Nurse Type: Progress Notes Filed: 06/28/2017 10:11 AM Note Text: PRE-TRANSPLANT PATIENT EDUCATION NOTE Type of Transplant: Kidney Informed Consent for Evaluation signed: Yes Multiple Listing Form signed: Yes READINESS TO LEARN: Cognitive Ability: Alert and oriented Motivation to Learn: Interested Family Support: High - Very involved in pt care Instruction Provided to: Patient and family member Patient Learns Best by: Multiple Methods Factors Affecting Learning: None Physical Limitations Affecting Learning: None LEARNING RESPONSE: Diagnosis: DM Education Topics/Teaching Points: -Discussed the evaluation and listing process. -Explained the surgical procedure and potential complications, surgeons, hospital stay at the time of transplant. -Discussed alternative treatments to transplantation. -Explained lifetime immunosuppression therapy and frequency of blood draws/labs post-op and post-op course of treatment. -Reviewed National and CCF outcomes from the most recent SRTR center-specific report; a copy of the program summary was given to the patient.? -Explained that if the transplant is not performed at a Medicare-approved transplant center it could affect the ability to have immunosuppressive medications paid under Medicare Part B. ? Supplemental Material: -Pre-Transplant Patient Education Binder -UNOS: Questions AND Answers for Transplant Candidates about Multiple Listing and Waiting Time Transfer -UNOS: Questions AND Answers for Transplant Candidates about Kidney Allocation Policy -Current SRTR Program Summary (Release date: 04/16/2017) -Informed Consent for Transplant Program Participation patient education packet -National Kidney Registry pamphlet: Yes -Center for Disease Control General Information: Hepatitis C Handout Method of Instruction: Group class instruction Written instruction - handouts Verbal instruction Video Patient/Family Response: Questions were asked and all questions were answered. Follow-Up Plan: Patient instructed to call with any further issues Referral/Recommendation: None Moreno Cedillo RN Pre-Interline Clerk PROGRESS Observed: 06/28/2017 Status: COMPLETED Source: RIO 8:40 AM [facility] REPOSITORY O ID: [id number] Author: Luiz Perez Service: (none) Author Type: Physician Type: Progress Notes Filed: 06/28/2017 3:19 PM Note Text: [facility] Transplant Evaluation CC: Patient is a 72 year old male here for transplant candidacy evaluation. Reason for visit: here for evaluation to be a Kidney Transplant recipient. Referred by: Mary Mix DO (Shayy) [address] [address] I will communicate with the referring provider by letter and/or shared electronic medical record. HPI: 72 yo male with a history of - CKD stage 4- proteinuric, believed to be from DM/HTn, not on dialysis yet - DM for 20 years- managed by PO meds + diet- not on insulin - Hypertension for 4 years - Documented non compliance with medications in the past - Admission in 02/2017 with hypertensive urgency SBP 220s-- better after med adjustment Patient has become more compliant, A1C and BP well controlled now. Lost about 37 pounds intentionally - Obesity- BMI used to be 37- now 32 presented for evaluation of renal transplant candidacy. Prior transplants- none Living donors- possible , 4 children Cardiac- Stress test- exercise- MPHR 81% Screening- need to obtain colonoscopy records Activity- Goes to gym 3 times a week, exercises for 1 hour, walks on treadmill for 40 minutes and strength training PAOD (TIA non-embolic, CVA non-embolic, amputation, carotid artery stenosis, abnormal PVRs, claudication history, decreased pulses, etc.):No Stroke: NO Claudication: NO Carotid Artery Stenosis: NO Malignancy (including skin cancer): No Hypercoagulable (history of DVT/PE, miscarriages, prior use of anticoagulation, etc.):No Prior transplant: No CKD: Yes: Cause of CKD: DM Living Donors: possibly his Residual UO: yes No DM: Yes Diagnosed at age 52, Type 2, Therapies: diet and Secondary complications: hypertension and nephropathy PAST MEDICAL HISTORY Diagnosis Date - Allergic rhinitis, cause unspecified Allergic rhinitis - Diabetes mellitus without mention of complication Diabetes mellitus - High cholesterol - Hypertension - Mixed hyperlipidemia Hyperlipidemia PAST SURGICAL HISTORY Procedure Laterality Date - OTHER wisdom teeth removal Current Outpatient Prescriptions: glimepiride (AMARYL) 4 mg tablet TAKE ONE TABLET BY MOUTH ONCE DAILY WITH BREAKFAST sitaGLIPtin-metFORMIN (JANUMET) 50-500 mg per tablet Take one pill daily losartan-hydrochlorothiazide (HYZAAR) 100-25 mg per tablet Take 1 tablet by mouth once daily. metFORMIN (GLUCOPHAGE) 500 mg tablet Take 1 tablet by mouth once daily. . diltiazem CD (CARDIZEM CD) 120 mg 24 hr capsule Take 1 capsule by mouth once daily. canagliflozin (INVOKANA) 100 mg tab Take 1 tablet by mouth daily before breakfast. cetirizine (ZYRTEC) 10 mg tablet Take one(1) tablet daily. doxycycline (VIBRA-TABS) 100 mg tablet Take one(1) tablet twice daily. pioglitazone (ACTOS) 30 mg tablet Take one(1) tablet daily. atorvastatin (LIPITOR) 40 mg tablet Take 1 tablet by mouth daily at bedtime. For cholesterol. Tadalafil (CIALIS) 20 mg tablet Take 1 tablet by mouth once daily. desonide (DESOWEN) 0.05 % cream Apply 1 application to affected area twice daily. No current facility-administered medications for this visit. FAMILY HISTORY Problem Relation Age of Onset - Stroke Mother - Hypertension Father Relation Status Comments Mo Fa Social History Marital status: Spouse name: Years of education: Number of children: Social History Main Topics Smoking status: Former Smoker Packs/day: 0.00 Years: 0.00 Smokeless status: Never Used Comment: Quit 10 years ago Alcohol use: Yes Comment: ocassionally Drug use: No Sexual activity: Yes Partners with: Female Pre-transplant testing: Cardiac: Echocardiogram: 03/31/2017 Summary: Left ventricular systolic function is normal The estimated EF is 55% Mild (1+) tricuspid valve insufficiency Pulmonary Artery systolic presents is 30 mmhg Exersice Stress Test 04/06/2017 The patient exercised according to the ERROL for 4:00 mins, achieving a work level of Max. METS: 5.80 the resting heart rate of 66 bpm jacinta to a maximal heart rate of 123 bpm This value represents 81% of the maximum age predicted heart rate. Resting BP 150/78 EKG Pending today CXR: 02/28/2017 Impression No evidence of acute cardiopulmonary pathology Colonoscopy: Need to obtain Sensitizations: Prior transplant: No Blood transfusions: No Immunizations: HBV series: Not received, patient encouraged to obtain Pneumovax: Received, date 06/28/2017 Influenza vaccine: Not received, patient encouraged to obtain Maddie Cantu RN Transplant fellow note- REVIEW OF SYSTEMS: PAIN ASSESSMENT: Negative for pain, history of chronic pain, or current treatment for a chronic pain condition. GENERAL: No weight loss, malaise or fevers HEENT: Negative for frequent or significant headaches, No changes in hearing or vision, no nose bleeds or other nasal problems NECK: Negative for lumps, goiter, pain and significant neck swelling RESPIRATORY: Negative for cough, hemoptysis, wheezing, COPD, dyspnea or shortness of breath CARDIOVASCULAR: Negative for chest pain, leg swelling, hypertension, CHF or palpitations GI: No nausea, vomiting, or diarrhea : No history of dysuria, frequency or incontinence MUSCULOSKELETAL: Negative for joint pain or swelling, back pain or muscle pain SKIN: Negative for lesions, rash, and itching PSYCH: Negative for sleep disturbance, mood disorder and recent psychosocial stressors HEMATOLOGY/LYMPHOLOGY: Negative for prolonged bleeding, bruising easily or swollen nodes ENDOCRINE: Positive for diabetes mellitus on oral agent NEURO: No history of headaches, syncope, paralysis, seizures or tremors ID: No diabetic foot ulcers Hepatitis: No Malignancy (including skin cancer): No PAOD (TIA non-embolic, CVA non-embolic, amputation, carotid artery stenosis, abnormal PVRs, claudication history, decreased pulses, etc.):No Hypercoagulable (history of DVT/PE, miscarriages, prior use of anticoagulation, etc.):No Functional capacity: >4.0, <8.0 moderate effort such as carrying 15lb KARNOFSKY INDEX SCALE (Adult patients aged 18 and older) - Used to rate a patient's functional status before and after a medical procedure: 80 - Normal activity with effort: some signs or symptoms of disease. PHYSICAL EXAMINATION: BP 190/82 (BP Site: Left Arm, BP Position: Sitting, BP Cuff Size: Regular Adult) Pulse 70 Temp 36.7 ?C (98.1 ?F) (Temporal Artery) Ht 172.7 cm (5' 8) Wt 98 kg (216 lb) SpO2 98% BMI 32.84 kg/m2 Body mass index is 32.84 kg/(m2). Constitutional: Alert and oriented, obese body habitus, well nourished Eyes: no pallor, no icterus Ear, Nose, and Throat: moist oral mucosa, good dental hygiene Neck:- no JVD, no carotid bruit Cardiovascular:Regular rate and rhythm, soft systolic Murmur on parasternal border, no edema, palpable peripheral pulses Respiratory: Clear to auscultation bilaterally, normal respiratory effort Abdomen:Soft, non tender, non distended, active bowel sounds Musculoskeletal: No clubbing or cyanosis of digits., Normocephalic. and No muscle weakness, joint tenderness, or joint effusions. Neurologic: Non focal exam Psychiatric: Alert and oriented x self, place, time, and setting Normal mood/affect Labs/Studies: Impression: 72 year old male here for evaluation of candidacy for transplantation. We had the opportunity to discuss the following, specific for this patient: Risks and benefits of transplantation including overall average increase in life expectancy and higher quality of life with transplantation for most recipients; Types of donor organs discussed with patient, including Living donor (if appropriate), , expanded criteria, donor cardiac (DCD) and CDC-High risk donor types, with relative benefit of living donation over donor transplantation explained. Exploration of potential donors done with patient; Lengthy discussion regarding Immunosuppression following transplantation. I explained our usual protocols, drugs involved, administration and monitoring. This included the risks of infection, possibly life threatening, and malignancy; Patient expresses understanding of the information discussed. Given his current issues, we plan: 1. To repeat treadmill stress test- can get stress EKG- last stress test reached MPHR of 81% 2. Colonoscopy- patient will schedule 3. ID consult because of travel history- [place] Walton Has right renal exophytic lesion- ?complext cyst- follow US per Urology Patient is a well appearing [place] male- appears younger than his age. Was non compliant with his care in the past but has now become more diligent. Lost 35+ kg, HbA1C improved from 9.7 to 6.9, BP in better control. 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 Has LDs. His GFR declined from 40s in 2013 to 20s in 2017- rapid decline. No NSAID use. So he will benefit from a pre-emptive transplant. Has exophytic right renal lesion- described as 'complex cyst' on US in 02/2017- will need follow up US per Urology Overall, he appears to be a good transplant candidate. Cancer Screening: Type of Cancer: Screening Criteria: Cervical Females age 21-29: PAP Q3yrs; HPV if PAP abnormal Females age 30-65: PAP AND HPV Q5yrs; OR PAP only Q3yrs Breast Females age 20-39: Clinical Breast Exam Q3yrs Females age 40+: Mammogram AND Clinical Breast Exam Q1yr Prostate Males age 40+: PSA will be checked at evaluation Colon All patients age 50+: colonoscopy Q10yrs or as recommended based on results Lung Patients meeting all of the following criteria will be scheduled for a Chest CT without Contrast at evaluation if they have not had a Chest CT within the past year: 1. Age 55-74 2. Have at least a 30 pack-year smoking history 3. Are still smoking OR have quit smoking within the last 15 yrs Patients that do not meet the criteria above or who had a Chest CT within the past year will have a CXR PA AND Lat at evaluation. Skin All patients: Skin will be examined at evaluation Based upon the above screening criteria, the patient will require: PSA with Evaluation Colonoscopy Pharmacy Consult: Not needed at this time Opportunity to ask questions given. Appears to understand. Communication with referring provider done by letter. Amara Pereira MD Fellow, Transplant Nephrology I have seen and examined the patient with Dr. Pereira. I have confirmed the duncan portions of the history and physical above. I agree with the Assessment and Plan as outlined above. In addition: patient has a very obese abdomen, encouraged him to continue to lose weight. His GFR is right around 20 currently but may be able to list now and decide on living donors later. Agree R renal cyst will need further eval prior to transplantation. Agree with further testing as above. Signed: Luiz Perez MD CNOV Observed: 06/28/2017 Status: COMPLETED Source: RIO 7:45 AM [facility] REPOSITORY Office Visit (TXCTGL) JIMENEZ GANDARA ([id number]) 1945 [facility] Date Time Provider Department 06/28/17 7:45 AM PRE TX GROUP EDUCATION TXCTGL During your visit today, we recorded the following information about you: Moreno Cedillo, RN, RN 06/28/2017 10:11 AM Signed PRE-TRANSPLANT PATIENT EDUCATION NOTE Type of Transplant: Kidney Informed Consent for Evaluation signed: Yes Multiple Listing Form signed: Yes READINESS TO LEARN: Cognitive Ability: Alert and oriented Motivation to Learn: Interested Family Support: High - Very involved in pt care Instruction Provided to: Patient and family member Patient Learns Best by: Multiple Methods Factors Affecting Learning: None Physical Limitations Affecting Learning: None LEARNING RESPONSE: Diagnosis: DM Education Topics/Teaching Points: -Discussed the evaluation and listing process. -Explained the surgical procedure and potential complications, surgeons, hospital stay at the time of transplant. -Discussed alternative treatments to transplantation. -Explained lifetime immunosuppression therapy and frequency of blood draws/labs post-op and post-op course of treatment. -Reviewed National and CCF outcomes from the most recent SRTR center-specific report; a copy of the program summary was given to the patient.? -Explained that if the transplant is not performed at a Medicare-approved transplant center it could affect the ability to have immunosuppressive medications paid under Medicare Part B. ? Supplemental Material: -Pre-Transplant Patient Education Binder -UNOS: Questions ANDamp; Answers for Transplant Candidates about Multiple Listing and Waiting Time Transfer -UNOS: Questions ANDamp; Answers for Transplant Candidates about Kidney Allocation Policy -Current SRTR Program Summary (Release date: 04/16/2017) -Informed Consent for Transplant Program Participation patient education packet -National Kidney Registry pamphlet: Yes -Center for Disease Control General Information: Hepatitis C Handout Method of Instruction: Group class instruction Written instruction - handouts Verbal instruction Video Patient/Family Response: Questions were asked and all questions were answered. Follow-Up Plan: Patient instructed to call with any further issues Referral/Recommendation: None Moreno Cedillo RN Pre-Interline Clerk Referring Provider: MARY MIX I [[id number]] Allergies As of Date: 06/28/2017 Noted Allergy Reaction DUST 12/11/2004 Date Reviewed: 10/31/2015 Reviewed by: Kristen Roberts LPN - Fully Assessed Reason for Visit: Patient Education [91] Primary Visit Diagnosis:Pre-transplant evaluation for ESRD (end stage renal disease) [Z01.818] Prescriptions as of 06/28/2017 Sig: GLIMEPIRIDE 4 MG TABLET TAKE ONE TABLET BY MOUTH ONCE* SITAGLIPTIN 50 MG-METFORMIN 5* Take one pill daily LOSARTAN 100 MG-HYDROCHLOROTH* Take 1 tablet by mouth once d* METFORMIN 500 MG TABLET Take 1 tablet by mouth once d* DILTIAZEM SR 120 MG 24 HR CAP Take 1 capsule by mouth once * CANAGLIFLOZIN 100 MG TABLET Take 1 tablet by mouth daily * CETIRIZINE 10 MG TABLET Take one(1) tablet daily. DOXYCYCLINE HYCLATE 100 MG TA* Take one(1) tablet twice pema* PIOGLITAZONE 30 MG TABLET Take one(1) tablet daily. ATORVASTATIN 40 MG TABLET Take 1 tablet by mouth daily * TADALAFIL 20 MG TABLET Take 1 tablet by mouth once d* DESONIDE 0.05 % TOPICAL CREAM Apply 1 application to affect* Problem List As Of Date 06/28/2017 Noted Resolved Diabetes mellitus type II, controlled, with no *INVALID FOR* ALLERGIC RHINITIS NOS [J30.9] INVALID FOR* Mixed hyperlipidemia [E78.2] INVALID FOR* OBESITY NOS [E66.9] INVALID FOR* Bladder Neck Obstruction [N32.0] INVALID FOR* BPH w Urinary Obs/LUTS [N40.1] INVALID FOR* Impotence of Organic Origin [N52.9] INVALID FOR* Diabetes Mellitus [E11.9] INVALID FOR* Incontinence of urine [R32] INVALID FOR* Essential hypertension [I10] INVALID FOR* Encounter Status:Closed by MORENO CEDILLO on 06/28/17 CNSGuille Observed: 06/28/2017 Status: COMPLETED Source: RIO 12:00 AM [facility] REPOSITORY Social Work (TXCTGL) JIMENEZ GANDARA ([id number]) 1945 M TRN Date Time Provider Department 06/28/17 ELA ARMSTRONG (PATSY) TXCTGL During your visit today, we recorded the following information about you: RIMA Arias 06/28/2017 4:28 PM Signed REFFERAL: Jimenez Gandara was referred to Social Work for a psychosocial evaluation as to whether he would make a suitable psychosocial candidate for a kidney transplant. He is not yet dialysis dependent. I met with him on june 28, 2017 and he chose to include his , Milena. IDENTIFYING INFORMATION/LIVING SITUATION: Jimenez Gandara is a 72 year old [place] male who lives at [address] [place] [address] in a two story house. [place] is a one [place] [address] from [facility]. Bedroom and bath are on the first floor. Also in the home is Jimenez's , Milena, age 45, and two of their four children. 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 One is at [employer] three days per week , 12 hour shifts. 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 The children are Sophia, age 24, who is a recent graduate as an RN and obtained a position at [employer] working three days, 12 hour shifts; and Nyla, age 19, who attends the [employer]. Also in the home is an older beagle dog. Jimenez is fully independent in his personal care needs and drives a car as do his two daughters and . He helps some around the house. He presented in a pleasant, quiet manner, fully focused on the interview. COMPREHENSION OF MEDICAL SITUATION: Jimenez Gandara states that he is not sure what caused his kidney failure, although his physicians tell him that it is due to his hypertension and diabetes. He states that he has had diabetes for years but did not test his glucose very often. He states that he did take him oral medications for it though. He states that he did not take care of his health well for years, but now he does. He states that he became short of breath late last year and was told that he had some kidney failure. He states that he has now accepted this. He states that he started to excersize three times per week at the [facility] and follow a better diet and he has lost forty pounds. He states that his A1C is now below 7. He states that he knows his medications and their purpose and he never forgets to take them He has just started to educate himself on kidney transplant issues but he seems to understand and accept the risks and benefits involved. SUBSTANCE HABITUATION/SOCIAL HISTORY/MARITAL HISTORY: Tobacco use: smoked cigarettes for about 8 years and quit about 25 years ago ( 1991) Alcohol Use: rare use; use to use lightly years ago Street Drug Use: denies ever using Mental Health: denies ever having formal mental health intervention. Denies any extended periods of anxiety or depression. Denies suicidal ideation or attempts. He could not say what helps him to cope, but maybe talking to others at times. He is not following any sikh at this time Level of education: bachelor degree Marital Status; Number of children: four: ages 19, 21, 22, 24 CITIZENSHIP: [place] Citizen SOCIAL NARRATIVE: Jimenez Gandara was born and raised in [place] by both of his biological parents. He is one of six children. Several sisters in childhood. Jimenez states that he [place] which his father had. [place] the [place] was [age] to continue his education. His parents are now . He has three living sisters; ages 77, 75 and 62. One lives in [place]; one lives in [place] and one lives in [place]. 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 He obtained a bachelor degree there in mechanical engineering in 1980. He then stayed living in the [facility] and worked. He became a [place] citizen. He took a job in [place], [place] in the mid . He Milena in 1990 and the marriage produced four children: Nyla, age 19, who lives at home and attends college; son, Prakash, age 21 who lives on [facility] ; Awilda, age 22 who attends [employer] and lives on campus; and Sophia, age 24 who is an RN and lives at home. The marriage appears stable and supportive. tends to stay very busy and may have feelings about her not staying busy enough EDUCATION/EMPLOYMENT: Jimenez Gandara is currently not employed. He has a bachelor degree in mechanical engineering in 1980. He worked for [employer] for 27 years and retired in 2009. BENEFITS: MMO through his 's employment. He also has Medicare A only as secondary. He is thinking of signing up for Part B to help with any outstanding bills. Medications have a manageable copay. He is advised to call his insurance to check on the copay for valgancylovir. SUPPORT SYSTEM: Jimenez Gandara seems to have an adequate support system. His primary support will come from his and his children. is able to take time off of work. She agreed to make sure that all children would assist with transportation needs and help at home HOBBIES AND INTEREST: gardening; goes to gym three times per week ADVANCE DIRECTIVES: has them at home and named his as DPOA DONORS: and children have offered and he seems fine with this. IMPRESSIONS AND RECOMMENDATIONS: At this time, Jimenez Gandara appears to be a suitable psychosocial candidate for a kidney transplant. He has no obvious psychosocial barriers such as ETOH abuse, street drug use, tobacco use or mental health instability. He admits that he was lax in taking care of his health for years until he became ill in 2017. Since then he has paid attention to his health and has improved in several areas. He has lost weight , become more active and his A1C is much better. He has adequate social support and adequate medication coverage. He may obtain Medicare Part B now to help with medical bills. I recommend that he be re evaluated if he starts dialysis. I gave him information and brochures pertinent to the kidney transplant process and he has my contact information RIMA Arias STRIKER OUT Kidney and Kidney/Pancreas Transplant Pediatric Cardiologist June 28, 2017 Allergies As of Date: 06/28/2017 Noted Allergy Reaction DUST 12/11/2004 Date Reviewed: 06/28/2017 Reviewed by: Luiz Perez - Fully Assessed Prescriptions as of 06/28/2017 Sig: AMLODIPINE 5 MG-BENAZEPRIL 10* Take 1 capsule by mouth once * LOSARTAN 100 MG TABLET Take 100 mg by mouth once jeniffer* CARVEDILOL 12.5 MG TABLET Take 12.5 mg by mouth twice d* DULAGLUTIDE 1.5 MG/0.5 ML SUB* Inject subcutaneously. one ti* LINAGLIPTIN 5 MG TABLET Take by mouth once daily. CALCITRIOL ORAL Take 0.5 mg by mouth once jeniffer* VITAMIN D (WITH CALCIUM) ORAL Take 1.25 mg by mouth once ev* FERROUS SULFATE 325 MG (65 MG* Take 325 mg by mouth daily wi* ATORVASTATIN 40 MG TABLET Take 1 tablet by mouth daily * Problem List As Of Date 06/28/2017 Noted Resolved Controlled type 2 diabetes mellitus without com*INVALID FOR* ALLERGIC RHINITIS NOS [J30.9] INVALID FOR* Mixed hyperlipidemia [E78.2] INVALID FOR* Obesity due to excess calories with serious com*INVALID FOR* Bladder Neck Obstruction [N32.0] INVALID FOR* BPH w Urinary Obs/LUTS [N40.1] INVALID FOR* Impotence of Organic Origin [N52.9] INVALID FOR* Diabetes Mellitus [E11.9] INVALID FOR* Incontinence of urine [R32] INVALID FOR* Essential hypertension [I10] INVALID FOR* Pre-transplant evaluation for ESRD (end stage r*INVALID FOR* Secondary hypertension [I15.9] INVALID FOR* Encounter Status:Closed by ELA ARMSTRONG on 06/28/17 ERYTHROPOIETIN Collected: 06/23/2017 Status: F Source: RENEE 2:33 PM REPOSITORY Order Comment: Reason for Laboratory Test . TYPE CODE TESTS RESULT OUT OF RANGE REFERENCE UNITS LAB L3100.1350 2.6-18.5 mIU/mL Normal ERYTHROP 7.2 [id number] Result Comment: Siemens Immulite 2000 Immunochemiluminometric assay (ICMA) Performed at: [facility] [id number] Oil Lease Operator: Jason Riojas PhD, Phone: [phone] Performed By: #### L3100.1350 #### [facility] (refer to report for specific site) refer to report for address and phone number CBC W/DIFF, AUTOMATED Collected: 06/23/2017 Status: F Source: [facility] 2:24 PM REPOSITORY Order Comment: Reason for Laboratory Test . TYPE CODE TESTS RESULT OUT OF RANGE REFERENCE UNITS LAB L100.1000 4.4-11.0 K/mm3 Normal WBC 7.2 LAB L100.1200 4.6-6.2 M/mm3 Low RBC 3.82 LAB L100.1300 13.0-16.5 g/dl Low HGB 9.9 LAB L100.1400 40-54 % Low HCT 30.3 LAB L100.1500 80-94 fL Low MCV 79.3 LAB L100.1600 27.0-32.0 pg Low MCH 25.9 LAB L100.1700 32-36 g/gl Normal MCHC 32.7 LAB L100.1810 11.6-14.6 % Normal RDW CV 14.2 LAB L100.1820 35.1-43.9 fl Normal RDW SD 40.6 LAB L100.1900 150-450 K/mm3 Normal PLT 193 LAB L100.2000 6.2-12.0 fl Normal MPV 11.0 LAB L100.2100 47-70 % Normal NEUT% 63.8 LAB L100.2200 19-41 % Normal LY% 22.9 LAB L100.2300 0-10 % Normal MONO% 6.7 LAB L100.2400 0-5 % High EO% 6.2 LAB L100.2500 0-1 % Normal BASO% 0.3 LAB L100.2550 0.0-0.9 % Normal IM GRAN % 0.100 Result Comment: IG% - Immature Granulocytes (promyelocytes, myelocytes and metamyelocytes) > 1% indicates that a LEFT SHIFT is Present. LAB L100.2620 2.0-7.7 X10 3/uL Normal Absolute Neut 4.6 LAB L100.2720 0.83-4.51 X10 3/ul Normal Absolute Lymph 1.64 Performed By: #### L100.0100, L100.9950 #### [facility] [address] [place], [place], [address] RETIC PANEL Collected: 06/23/2017 Status: F Source: QUINN[facility] 2:24 PM REPOSITORY Order Comment: Reason for Laboratory Test . TYPE CODE TESTS RESULT OUT OF RANGE REFERENCE UNITS LAB L101.0000 0.5-1.5 % Normal RETIC 0.93 LAB L101.0060 3.00-15.90 % Low IM RET FRACTION 2.50 LAB L101.0090 30-35 pg Low RET-HE 25.6 LAB L101.0110 1.0-7.9 % Normal IPF 3.0 Result Comment: Low PLT + Low IPF suggest a bone marrow production disorder Low PLT + high IPF suggests peripheral destruction (e.g.ITP, TTP, HIT, DIC, autoimmune) or bone marrow recovery Trending of serial IPF measurements is recommended when evaluating for bone marrow respones Value above normal range indicates an increase in RBC cellular response from bone marrow. Performed By: #### L100.0100, L100.9950 #### [facility] [address] [facility]. [place], [place], [address] COMPREHENSIVE METABOLIC Collected: 06/23/2017 Status: F Source: [facility] 2:24 PM REPOSITORY Order Comment: Reason for Laboratory Test . TYPE CODE TESTS RESULT OUT OF RANGE REFERENCE UNITS LAB L501.0100 74-106 mg/dL High GLU 175 Result Comment: Fasting Glucose result greater than or equal to 126 mg/dL suggests DIABETES MELLITUS per A.D.A. criteria. Please note revised GLUCOSE reference range effective 2017. LAB L501.1000 7-18 mg/dL High BUN 34 LAB L501.1100 0.70-1.30 mg/dL High CREAT,SERUM 3.11 Result Comment: The validity of the calculated GFR AND GFRAA in patients over 70 years has not been determined. Clinical correlation is essential. LAB L501.1110 >60 mL/min Low EST GFR 21 Result Comment: Non- GFR Calc LAB L501.1115 >60 mL/min Low EST GFR - AA 26 Result Comment: GFR Calc LAB L501.1255 ml/min Normal Estimated CRCL 21.38 LAB L501.1300 10-20 RATIO Normal BUN/CRE 10.9 LAB L501.1500 6.4-8. g/dL Normal 2 T PROT 7.7 LAB L501.1800 3.2-5. g/dL Normal 0 ALB 3.4 LAB L501.1950 2.2-4. g/dL High 2 GLOB 4.3 LAB L501.2000 0.9-2. RATIO Low 4 A/G 0.8 LAB L501.2200 8.5-10 mg/dL Normal .1 CA 8.5 LAB L501.4100 15-37 U/L Normal AST 16 LAB L501.4305 45-117 U/L Normal ALK P 70 LAB L501.4405 16-61 U/L Normal ALT 21 Result Comment: Please note revised ALT reference range effective 2017. LAB L501.4600 0.20-1.00 mg/dL Normal T BILI 0.40 LAB L501.5300 136-145 mmol/L Normal NA 141 LAB L501.5600 3.5-5.1 mmol/L Normal K 4.6 LAB L501.5900 98-107 mmol/L High CL 108 LAB L501.6100 21.0-32.0 mmol/L Normal CO2 23.0 LAB L501.6200 5-15 Normal GAP 10 Performed By: #### L500.4050, L503.6030, L503.6550 #### [facility] [address] [place], [place], [address] IRON+IRON BINDING Collected: 06/23/2017 Status: F Source: [facility] 2:24 PM REPOSITORY Order Comment: Reason for Laboratory Test . TYPE CODE TESTS RESULT OUT OF RANGE REFERENCE UNITS LAB L503.6075 250-450 ug/dL Low TIBC 228 LAB L503.6150 65-175 ug/dL IRON Normal 85 LAB L503.6250 15.0-55.0 % IRON Normal SATURATION 37.3 Performed By: #### L500.4050, L503.6030, L503.6550 #### [facility] [address] [place], [address] FERRITIN Collected: 06/23/2017 Status: F Source: [facility] 2:24 PM REPOSITORY Order Comment: Reason for Laboratory Test . TYPE CODE TESTS RESULT OUT OF RANGE REFERENCE UNITS LAB L503.6550 26-388 ng/mL Normal FERRITIN 177 Performed By: #### L500.4050, L503.6030, L503.6550 #### [facility] [address] [place], [address] ONCOLOGY HISTORY AND Observed: 06/23/2017 Status: F Source: [facility] 2:06 PM REPOSITORY [facility] Medical Records Department [address] [facility] [place] [address] History and Physical 06/23/17 1354 MR#: [id number] Acct: [id number] Name: JIMENEZ GANDARA Rep #: [id number] : 1945 72 From: Shania Hanks MD PCP: Zachary JOSEPH,Sy Estrella Status: REG RCR Y [facility] - Problem List (1) Anemia of chronic renal failure, stage 4 (severe) Status: Chronic Subjective Date of Service:: 06/23/17 Chief Complaint: Fatigue History of Present Illness: 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 His past medical history is notable for diabetes for over 20 years duration complicated with nephropathy and hypertension. He was started on oral iron supplement with no significant improvement in his blood counts. He is unaware of any external bleeding although has not had screening colonoscopy or an endoscopy for GI blood loss. His stools turned black only after he started taking oral line. He has no first-degree relatives with malignancies. Though he is of [place] ancestry he himself has never traveled to [facility] and to his knowledge never exposed or suffered from malaria. 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) DM2 (diabetes mellitus, type 2) (Chronic) Hypertensive urgency (Acute) Hypertensive urgency (Acute) ARF (acute renal failure) (Acute) HTN (hypertension) (Chronic) Pre-syncope (Acute) Anemia (Acute) Hyperlipidemia (Acute) Past Surgical History (Last Reviewed 06/23/17 @ 13:12 by Dia Stuart) No history of previous surgery (Acute) [place] teeth removed (Acute) Family History (Last Reviewed 06/23/17 @ 13:12 by Dia Stuart) Father Pneumonia Mother CVA (cerebral vascular accident) Allergies/Adverse Reactions: Allergy/AdvReac Type Severity Reaction Status Date / Time No Known Allergies Allergy Verified 05/03/17 13:48 Home Medications Medication Instructions Recorded Carvedilol [Coreg (Beta Samantha)] 12.5 mg PO BID #60 tab 03/01/17 Amlodipine [Norvasc] 10 mg PO DAILY 06/23/17 Risk Factors Social History Smoking Status Former smoker Tobacco Risk Data: Tobacco Risk Smoking Status Former smoker Type of tobacco: Smokeless tobacco usage: Items/Day: Year started: Years used: 12 Counseled to quit/cut down: Reason for no counseling performed: Reason for no pharmacotherapy: Tobacco use comments: Passive smoke exposure: No Substance Risk Drug use: No Caffeine use [drinks/day]: Alcohol use: Yes Type of alcohol: rarely- beer Drinks per day: Has patient felt the need to cut down: Has the patient been annoyed by complaints: Has the patient felt guilty about drinking: Has the patient needed an eye case resource manager in the mornings: Comments: Review of Systems Constitutional:: Reports: Weakness, Fatigue, Weight loss - Active trying to optimize his diabetes control. Denies: Fever, Sweats, Appetite change, Chills Cardiovascular:: Reports: Dyspnea on exertion. Denies: Chest pain, Palpitations, Orthopnea, PND, Shortness of breath Respiratory: Reports: Shortness of breath upon exertion. Denies: Cough, Hemoptysis, Shortness of Breath, Wheezing Gastrointestinal:: Reports: - - Stools turned black only after oral iron.. Denies: Abdominal pain, Nausea, Vomiting, Diarrhea, Constipation, Hematochezia Genitourinary: Denies: Dysuria, Hematuria, 15, Flank pain Musculoskeletal:: Denies: Back pain, Myalgia, Arthralgia Skin: Denies: Rash, Skin Changes, Wounds Neurological:: Denies: Headache, Dizziness, Visual changes, Tinnitus, Hearing loss Psychiatric: Denies: Anxiety, Depression, Homicidal Ideations, Suicidal Ideations Vital Signs Height 5 ft 8 in Weight: 98.067 kg Weight in Pounds 216.2 lbs Pulse Ox 97 - Physical Exam General: Alert, Oriented x3, No apparent distress, - - Overweight ECOG 1-2 Mildly pale HEENT: Atraumatic, PERRLA, EOMI, Normocephalic Oropharynx:: Dry mucosa Neck:: Supple, Trachea midline. Negative for: JVD, bilateral Cardiac:: Regular rate, Regular rhythm, Normal S1, Normal S2. Negative for: Murmur Lungs: Clear to auscultation, Excusion symmetrical. Negative for: Rhonchi, Wheezes Abdomen:: Soft, Non-tender, Non-distended. Negative for: Hepatosplenomegaly Extremities:: Negative for: Cyanosis, Edema Neurological: Neuro grossly intact Skin:: Negative for: Lesions, Rash, Petechiae, Ecchymosis Psychiatric:: Appropriate affect, Euthymic Lymphatics:: Negative for: Cervical lymphadenopathy, Supraclavicular lymphadenopathy, Axillary lymphadenopathy Laboratory Data: Reviewed in EMR Laboratory Tests Hgb 9.8 L Hct 31.2 L Creatinine 2.3 H Ferritin 141 Hgb 9.6 L Hct 29.7 L Creatinine 3.14 H Ferritin Assessment and Plan 72-year-old gentleman with a slowly progressively worsening chronic anemia, symptomatic, most consistent with anemia of chronic kidney disease. Plan: #1 update CBC, reticulocyte, iron studies, B12, CMP. #2 Erythropoietin level #3 follow-up in 1 week and assess for eligibility for erythrocyte stimulating agent therapy (ESAT) Impression and plan discussed. Primary Care Provider: Sy Sharma Referring Provider: Sy Sharma 06/23/17 1406 <Electronically signed by Shania Hanks MD> Date Shania Hanks MD Cosigner Signature: Date (if applicable) CC: Shania Hanks MD; Sy Sharma MD Signed BASIC METABOLIC Collected: 06/18/2017 Status: F Source: [facility] PROFILE (BMP) 11:19 AM REPOSITORY TYPE CODE TESTS RESULT OUT OF RANGE REFERENCE UNITS LAB L501.0100 74-106 mg/dL High GLU 137 Result Comment: Fasting Glucose result greater than or equal to 126 mg/dL suggests DIABETES MELLITUS per A.D.A. criteria. Please note revised GLUCOSE reference range effective 2017. LAB L501.1000 7-18 mg/dL High BUN 40 LAB L501.1100 0.70-1.30 mg/dL High CREAT,SERUM 3.14 Result Comment: The validity of the calculated GFR AND GFRAA in patients over 70 years has not been determined. Clinical correlation is essential. LAB L501.1110 >60 mL/min Low EST GFR 21 Result Comment: Non- GFR Calc LAB L501.1115 >60 mL/min Low EST GFR - AA 25 Result Comment: GFR Calc LAB L501.1300 10-20 RATIO Normal BUN/CRE 12.7 LAB L501.2200 8.5-10.1 mg/dL CA Normal 8.5 LAB L501.5300 136-145 mmol/L NA Normal 141 LAB L501.5600 3.5-5.1 mmol/L K Normal 5.0 LAB L501.5900 98-107 mmol/L High CL 111 LAB L501.6100 21.0-32.0 mmol/L Normal CO2 21.0 LAB L501.6200 5-15 Normal GAP 9 Performed By: #### L500.2500 #### [facility] [address] [place], [place], [id number] BASIC METABOLIC Collected: 06/16/2017 Status: F Source: [facility] PROFILE (BMP) 3:29 PM REPOSITORY TYPE CODE TESTS RESULT OUT OF RANGE REFERENCE UNITS LAB L501.0100 74-106 mg/dL High GLU 150 Result Comment: Fasting Glucose result greater than or equal to 126 mg/dL suggests DIABETES MELLITUS per A.D.A. criteria. Please note revised GLUCOSE reference range effective 2017. LAB L501.1000 7-18 mg/dL High BUN 34 LAB L501.1100 0.70-1.30 mg/dL High CREAT,SERUM 3.08 Result Comment: The validity of the calculated GFR AND GFRAA in patients over 70 years has not been determined. Clinical correlation is essential. LAB L501.1110 >60 mL/min Low EST GFR 21 Result Comment: Non- GFR Calc LAB L501.1115 >60 mL/min Low EST GFR - AA 26 Result Comment: GFR Calc LAB L501.1300 10-20 RATIO Normal BUN/CRE 11.0 LAB L501.2200 8.5-10.1 mg/dL Low CA 8.2 LAB L501.5300 136-145 mmol/L NA Normal 137 LAB L501.5600 3.5-5.1 mmol/L High K 5.4 LAB L501.5900 98-107 mmol/L High CL 108 LAB L501.6100 21.0-32.0 mmol/L Low CO2 20.0 LAB L501.6200 5-15 Normal GAP 9 Performed By: #### L500.2500 #### [facility] [address] [place], [place], [id number] CBC W/DIFF, AUTOMATED Collected: 06/15/2017 Status: F Source: [facility] 11:35 AM REPOSITORY TYPE CODE TESTS RESULT OUT OF RANGE REFERENCE UNITS LAB L100.1000 4.4-11.0 K/mm3 Normal WBC 6.9 LAB L100.1200 4.6-6.2 M/mm3 Low RBC 3.70 LAB L100.1300 13.0-16.5 g/dl Low HGB 9.6 LAB L100.1400 40-54 % Low HCT 29.7 LAB L100.1500 80-94 fL Normal MCV 80.3 LAB L100.1600 27.0-32.0 pg Low MCH 25.9 LAB L100.1700 32-36 g/gl Normal MCHC 32.3 LAB L100.1810 11.6-14.6 % Normal RDW CV 14.4 LAB L100.1820 35.1-43.9 fl Normal RDW SD 41.9 LAB L100.1900 150-450 K/mm3 Normal PLT 192 LAB L100.2000 6.2-12.0 fl Normal MPV 10.8 LAB L100.2100 47-70 % Normal NEUT% 65.9 LAB L100.2200 19-41 % Normal LY% 20.5 LAB L100.2300 0-10 % Normal MONO% 6.1 LAB L100.2400 0-5 % High EO% 7.1 LAB L100.2500 0-1 % Normal BASO% 0.4 LAB L100.2550 0.0-0.9 % Normal IM GRAN % 0.000 Result Comment: IG% - Immature Granulocytes (promyelocytes, myelocytes and metamyelocytes) > 1% indicates that a LEFT SHIFT is Present. LAB L100.2620 2.0-7.7 X10 3/uL Normal Absolute Neut 4.5 LAB L100.2720 0.83-4.51 X10 3/ul Normal Absolute Lymph 1.41 Performed By: #### L100.0100 #### [facility] [address] [place], [address] COMPREHENSIVE METABOLIC Collected: 06/15/2017 Status: F Source: [facility] 11:35 AM REPOSITORY TYPE CODE TESTS RESULT OUT OF RANGE REFERENCE UNITS LAB L501.0100 74-106 mg/dL High GLU 175 Result Comment: Fasting Glucose result greater than or equal to 126 mg/dL suggests DIABETES MELLITUS per A.D.A. criteria. Please note revised GLUCOSE reference range effective 2017. LAB L501.1000 7-18 mg/dL High BUN 33 LAB L501.1100 0.70-1.30 mg/dL High CREAT,SERUM 3.32 Result Comment: The validity of the calculated GFR AND GFRAA in patients over 70 years has not been determined. Clinical correlation is essential. LAB L501.1110 >60 mL/min Low EST GFR 20 Result Comment: Non- GFR Calc LAB L501.1115 >60 mL/min Low EST GFR - AA 24 Result Comment: GFR Calc LAB L501.1300 10-20 RATIO Low BUN/CRE 9.9 LAB L501.1500 6.4-8.2 g/dL Normal T PROT 7.3 LAB L501.1800 3.2-5.0 g/dL Normal ALB 3.4 LAB L501.1950 2.2-4.2 g/dL Normal GLOB 3.9 LAB L501.2000 0.9-2.4 RATIO Normal A/G 0.9 LAB L501.2200 8.5-10.1 mg/dL Low CA 8.3 LAB L501.4100 15-37 U/L Low AST 13 LAB L501.4305 45-117 U/L Normal ALK P 68 LAB L501.4405 16-61 U/L Normal ALT 20 Result Comment: Please note revised ALT reference range effective 2017. LAB L501.4600 0.20-1.00 mg/dL Normal T BILI 0.40 LAB L501.5300 136-145 mmol/L Normal NA 138 LAB L501.5600 3.5-5.1 mmol/L High alert K 6.7 Result Comment: Critical Result(s) Called at: 13:47:43 06/15/2017 by: Dana Lopez to [place] LAB L501.5900 98-107 mmol/L High CL 111 LAB L501.6100 21.0-32.0 mmol/L Normal CO2 21.0 LAB L501.6200 5-15 Normal 6 GAP Performed By: #### L500.4050, L501.9520 #### [facility] [address] [place], [place], [id number] THYROID STIM HORMONE Collected: 06/15/2017 Status: F Source: [facility] (TSH) 11:35 AM REPOSITORY TYPE CODE TESTS RESULT OUT OF RANGE REFERENCE UNITS LAB L501.9520 0.358-3.74 uIU/mL Normal TSH 2.41 Performed By: #### L500.4050, L501.9520 #### [facility] [address] [place], [place], [address] CNCO Observed: 06/14/2017 Status: COMPLETED Source: RIO 12:00 AM [facility] REPOSITORY Letter Text Kidney and Pancreas Transplant Program Pre-Transplant Office [address] [place] [address] , ext. [phone] June 14, 2017 Dear Mr. Jimenez Gandara, Thank you for choosing [facility] for your transplant care. Please see the attached schedule for your kidney evaluation. Please ensure that you arrive on time. Patients arriving more than 30 minutes after scheduled time, will be turned away and will need to be rescheduled at a later date. The information marked below will need to be submitted to our pre-transplant office as soon as possible. Please note that the requested testing should be current - within the past 12 months. Please have all of the marked items faxed to our office at [phone]. __X___ Colonoscopy (with pathology results if applicable) - all patients age 50 and older __X___ Dental Clearance - Please have your Dentist complete the enclosed form and return it to our office. Also, if you have had any of the following tests within the past 12 months, please forward the results to our office as soon as possible. EKG Chest X-Ray Echocardiogram Cardiac Stress Test CT of the Abdomen and Pelvis During your evaluation, you will see the following transplant team members: Interline Clerk Transplant Physician(s) Transplant Surgeon Pediatric Cardiologist Web Knitter Regulatory Compliance Director We request that you bring the following with you to your evaluation appointments: - a list of your current medications - your insurance cards - a family member or close friend that acts as a support person/caregiver - a snack or lunch as there may not be an opportunity to go to the cafe - any medication that you may need to take throughout the day At the end of your evaluation appointments, it may be determined that you need additional testing or further consultations. All testing and consults requested by the transplant team will need to be scheduled at a [facility] or [facility]. Please be advised that we cannot make a determination regarding placing you on the [facility] and [facility]) transplant waiting list until your evaluation and testing are complete. If you are unable to keep any of your scheduled appointments, please give us at least 48 hours notice so that we may attempt to accommodate other patient appointments. Failure to notify us of the need to cancel appointments may result in a delay in rescheduling your evaluation. Please contact us at [phone] or toll-free at , ext. [phone] if you have any questions or if you need to cancel and reschedule your upcoming evaluation appointments. Again, thank you for choosing [facility] for your transplant care. We look forward to assisting you through the kidney transplant evaluation process. Sincerely, The [facility] Pancreas Transplant Program CC: Dr.Christine Mix PROGRESS Observed: 05/24/2017 Status: COMPLETED Source: RIO 10:38 AM [facility] REPOSITORY HNO ID: [id number] Author: Martina (Rn) NORMA Butler Service: (none) Author Type: Registered Nurse Type: Progress Notes Filed: 05/24/2017 10:40 AM Note Text: New Referral Referring Physician Dr. Mary Mix Organ Type kidney ESRD No . Cause: DM Dialysis Dependant? No: pre-emptive Name of Dialysis Facility: N/A Diabetes Yes. Type 2, diagnosed at age 57, not on insulin Current BMI 34.2 Previous Transplant No Date of Last Transplant N/A Currently Listed? No . Facility: N/A Willing to accept blood transfusion? Yes Potential Living Donor? Yes Full transplant evaluation? Yes Nephrology Screen Required? No If yes to nephrology screen, reason: N/A Martina Butler RN BSN Kidney AND Pancreas Interline Clerk CBC-COMPLETE BLOOD CNT Collected: 05/12/2017 Status: F Source: [place] NO DIFF 11:59 AM REPOSITORY TYPE CODE TESTS RESULT OUT OF RANGE REFERENCE UNITS LAB L100.1000 4.4-11.0 K/mm3 Normal WBC 6.4 LAB L100.1200 4.6-6.2 M/mm3 Low RBC 3.69 LAB L100.1300 13.0-16.5 g/dl Low HGB 9.8 LAB L100.1400 40-54 % Low HCT 29.5 LAB L100.1500 80-94 fL Low MCV 79.9 LAB L100.1600 27.0-32.0 pg Low MCH 26.6 LAB L100.1700 32-36 g/gl Normal MCHC 33.2 LAB L100.1810 11.6-14.6 % Normal RDW CV 12.9 LAB L100.1820 35.1-43.9 fl Normal RDW SD 36.7 LAB L100.1900 150-450 K/mm3 Normal PLT 187 LAB L100.2000 6.2-12.0 fl Normal MPV 11.9 Performed By: #### L100.0500 #### [facility] [address] [place], [place], [address] RENAL PROFILE Collected: 05/12/2017 Status: F Source: [place] 11:59 AM REPOSITORY TYPE CODE TESTS RESULT OUT OF RANGE REFERENCE UNITS LAB L501.0100 70-110 mg/dL High GLU 132 Result Comment: Fasting Glucose result greater than or equal to 126 mg/dL suggests DIABETES MELLITUS per A.D.A. criteria. LAB L501.1000 7-18 mg/dL High BUN 22 LAB L501.1100 0.70-1.30 mg/dL High CREAT,SERUM 3.25 Result Comment: The validity of the calculated GFR AND GFRAA in patients over 70 years has not been determined. Clinical correlation is essential. LAB L501.1110 >60 mL/min Low EST GFR 20 Result Comment: Non- GFR Calc LAB L501.1115 >60 mL/min Low EST GFR - AA 24 Result Comment: GFR Calc LAB L501.1300 10-20 RATIO Low BUN/CRE 6.8 LAB L501.1800 3.2-5.0 g/dL Normal ALB 3.2 LAB L501.2200 8.5-10.1 mg/dL Normal CA 8.5 LAB L501.2300 2.5-4.9 mg/dL Normal PHOS 3.7 LAB L501.5300 136-145 mmol/L Normal NA 141 LAB L501.5600 3.5-5.1 mmol/L Normal K 4.3 LAB L501.5900 98-107 mmol/L Normal CL 104 LAB L501.6100 21.0-32.0 mmol/L Normal CO2 28.0 Performed By: #### L500.3600 #### [facility] [address] [place], [address] PROTEIN, URINE 24HR Collected: 05/12/2017 Status: C Source: [place] 11:59 AM REPOSITORY TYPE CODE TESTS RESULT OUT OF RANGE REFERENCE UNITS LAB L501.1850 24.0 HOURS Normal UR COLLECT 24.0 TIME LAB L501.1875 mL Normal UR TOTAL 2425 VOLUME LAB L501.1900 <11.9 mg/dL High URINE PROTEIN 157.8 LAB L501.1925 <150 MG/24HR mg/24HR High 24hr UR 3826.6 PROTEIN Result Comment: AMENDED REPORT 05/13/172117 24hr UR PROTEIN previously reported as: 3826.7 H mg/24HR Performed By: #### L500.9000 #### [facility] [address] [place], [place], [address] 24 HR UR CREATININE Collected: 05/12/2017 Status: C Source: [place] CLEARANCE 11:59 AM REPOSITORY TYPE CODE TESTS RESULT OUT OF RANGE REFERENCE UNITS LAB L501.0050 24.0 HOURS Normal UR COLLECT 24.0 TIME LAB L501.0075 mL Normal UR TOTAL 2425 VOLUME LAB L501.1050 0.8-1.3 mg/dL High SERUM CREAT 3.3 LAB L501.1110 >60 mL/min Low EST GFR 20 Result Comment: Non- GFR Calc AMENDED REPORT 05/13/172122 EST GFR previously reported as: 20 L mL/min LAB L501.1115 >60 mL/min Low EST GFR - AA 24 Result Comment: GFR Calc AMENDED REPORT 05/13/172122 EST GFR - AA previously reported as: 20 L mL/min LAB L501.1150 NO RANGE mg/dL Normal EST. URINE 49.7 CREAT Result Comment: AMENDED REPORT 05/13/172122 URINE CREAT previously reported as: 49.3 mg/dL LAB L501.1250 100-200 ml/min CREAT Low CLEARANCE 26 Result Comment: AMENDED REPORT 05/13/172122 CREAT CLEARANCE previously reported as: 25 L ml/min Performed By: #### L500.4507 #### [facility] [address] [place], [place], [address] VITAMIN D,25 HYDROXY Collected: 05/12/2017 Status: F Source: [place] 11:59 AM REPOSITORY TYPE CODE TESTS RESULT OUT OF REFERENCE UNITS RANGE LAB L506.1000 19.95-100.01 ng/mL Low Vitamin D 19.4 25-OH Result Comment: Vitamin D 25(OH) Status Range Deficiency <20 ng/mL (50nmol/L) Insuffciency 20 - 30 ng/mL (50 - 75 nmol/L) Sufficiency 30 - 100 ng/mL (75 - 250 nmol/L) Toxicity >100 ng/mL (>250 nmol/L) Performed By: #### L506.1000 #### [facility] [address] [place], [address] PTHIN Collected: 05/12/2017 Status: F Source: [place] 11:59 AM REPOSITORY TYPE CODE TESTS RESULT OUT OF RANGE REFERENCE UNITS LAB L509.1000 18.4-80.1 pg/mL High PTHIN 286.2 Result Comment: Please Note: PTH INTACT METHOD AND REFERENCE RANGE CHANGE Effective 03/31/2017. Performed By: #### L509.1000 #### [facility] [address] [place], [address] PULMONARY VISIT REPORT Observed: 05/05/2017 Status: F Source: [place] 12:39 PM REPOSITORY [facility] [address] [place] [address] OFFICE VISIT Date of Service: 05/03/17 MR#: [id number] Acct: [id number] Name: JIMENEZ GANDARA Rep #: [id number] : 1945 Provider: Bhavani Ramos Age/Sex: 71/M Location: [facility] Status: Signed Assessment AND Plan 1. SUSAN (obstructive sleep apnea) G47.33 Status Chronic Plan The patient is agreeable to a titration study, after which they recommended therapy will be initiated. He will then follow-up with Dr. Smith in 2 months to evaluate his response to therapy. Lengthy discussion on the pathophysiology of obstructive sleep apnea, its relationship to obesity and what comorbid illnesses are at risk with untreated sleep apnea. We also discussed what course for him to expect, and what symptoms to evaluate as he gains acclamation to pressure support therapy. He does convey some apprehension about beginning treatment and its necessity. He is adamant that he did not sleep during the entire sleep study. Sleep labs phone number was provided for the patient and he was encouraged to contact them with any concerns he had regarding the data that was obtained during the test. Orders Orders: 2. Class 2 obesity due to excess calories with body mass index (BMI) of 35.0 to 35.9 in adult, unspecified whether serious comorbidity present E66.09; Z68.35 Status Chronic Plan He does not appear interested or motivated for weight loss at this time. Continue to encourage weight loss. Plan Detail Follow Up 2 Months (DMB) HPI Sleep concern: Chief Complaint: susan HPI Comments Details: Patient here for PSG results. is [facility] from [facility]. This is a 71-year-old male currently under the care of Dr. Sharma. He is here to discuss results of her recent sleep study. He is ambulatory and currently on room air. He was sent for evaluation for possible sleep apnea by his primary care physician regarding his risk factors which include snoring, obesity and increased neck circumference. He also experiences at least one episode of nocturia nightly. Currently, he is napping for 1-1-1/2 hours daily. He does not feel rested in the morning, after awakening a approximately 6 AM, he returns to sleep at approximately 7 and sleeps until 830 or 9 AM. He is falling asleep easily watching TV. He denies falling asleep while reading. He denies any difficulties with dry mouth in the morning or frequent daytime headaches. Complete polysomnogram completed on April 16, 2017. Overall CMS apnea hypotony index was 34.3 events per hour. According to the interpretation severe SUSAN and a CPAP titration was suggested. Intake Vital Signs05/03/17 Height 5 ft 8 in 05/03/17 Weight: 231 lb Intake Visit Reasons: Sleep problems Accompanied by: Self Allergies No Known Allergies Allergy (Verified 05/03/17 13:48) Medications Glimepiride [Amaryl] 4 mg PO DAILY 02/28/17 [History Confirmed 05/03/17] Amlodipine [Norvasc] 5 mg PO DAILY #30 tab 03/01/17 [Rx Confirmed 05/03/17] Carvedilol [Coreg (Beta Samantha)] 12.5 mg PO BID #60 tab 03/01/17 [Rx Confirmed 05/03/17] Clonidine HCl [Catapres] 0.1 mg PO BID #60 tab 03/01/17 [Rx Confirmed 05/03/17] Hydrochlorothiazide [Hctz] 25 mg PO DAILY #30 tab 03/01/17 [Rx Confirmed 05/03/17] Losartan Potassium [Cozaar] 100 mg PO DAILY #30 tab 03/01/17 [Rx Confirmed 05/03/17] Pioglitazone [Actos] 30 mg PO DAILY #30 03/01/17 [Rx Confirmed 05/03/17] Pioglitazone [Actos] 30 mg PO DAILY #30 tab 03/01/17 [Rx Confirmed 05/03/17] Pioglitazone [Actos] 30 mg PO DAILY@0800 tab 03/01/17 [Rx Confirmed 05/03/17] [facility] Medical History Chronic kidney disease, stage IV (severe) (Chronic) 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) DM2 (diabetes mellitus, type 2) (Chronic) Hypertensive urgency (Acute) Hypertensive urgency (Acute) ARF (acute renal failure) (Acute) HTN (hypertension) (Chronic) Pre-syncope (Acute) Social History Smoking Status: Former smoker how long ago did patient quit smokin, 0.5pk/day second hand exposure: Yes alcohol intake: current alcohol intake frequency: a few times a month substance use type: does not use Review of Systems Const CONSTITUTIONAL: Negative anorexia, body ache, chills, daytime sleepiness, fever(s), night sweats, oral thrush, stops breathing during sleep, weight loss, sleeping in chair, fatigue, weight loss, weight gain, frequent colds, seasonal allergies, other, headache(s) or orthopnea EETM Ear Nose Throat Mouth: Positive hearing normal; negative hard of hearing, hoarseness, dry mouth in morning, change in vision, itchy eyes, eye pain, swallowing Difficulty, ear pain, nose bleed, headache(s), mouth pain, nasal congestion, nasal discharge, post nasal drip, sinus pain, sinus pressure, sore throat or other Cardio Cardiovascular: Negative chest pain, chest pain at rest, chest pain with activity, irregular heart rhythm, edema, shortness of breath when lying down, palpitations, murmur or other Resp Respiratory: Positive as per HPI; negative shortness of breath, pain with cough, wheezing, chest congestion, cough, chest tightness, pain on inspiration, inhalers, increase use of rescue inhalers, snoring, apnea or other Gastro Gastrointestional: Negative bloody stools, change in appetite, difficulty swallowing, reflux, hematemesis, melena stool, loose stool, constipation or other Genitourinary: Negative blood in urine, nocturia, pain with urination or other Musc Musculoskeletal: Negative body pain, back pain, neck pain or other Skin/Breast Skin/Breast: Positive itching; negative dry skin, rash, unusual bruising, breast lump or other Neuro Neurological: Negative restless legs, confusion, weakness or other Psych Psychocological: Negative abnormal sleep pattern, anxiety, thoughts of hurting self/others, hopelessness or other Lymph Lymphatic: Negative easy bleeding, easy bruising, swollen lymph nodes or other Exam Const Constitutional: Positive conversant, cooperative, in no acute respiratory distress, healthy appearing, well developed, well nourished, poor hygiene and obese Head Head: Positive normocephalic and atraumatic; negative cyanosis of lips/distal nose Eyes Eye: Positive clear conjunctiva and nystagmus; negative scleral abnormality Ears Ear: Positive hearing normal and external ears normal; negative hard of hearing Nose Nose: Positive external nose normal and no nasal discharge; negative epistaxis Mouth Mouth: Positive oral mucosae normal, no lesions, good dentition and crowded posterior oropharynx; negative post nasal drip, malodorous breath or oral thrush present Mallampati Score: III: Mallampati Score Neck Neck: Positive normal visual inspection, full ROM, trachea midline, thick neck and male neck greater than 43 cm (17 in); negative lymphadenopathy, JVD or tender Chest Wall Chest: Positive normal inspection of the chest and symmetric chest movement; negative increased A/P diameter Resp lung sounds: Positive clear to auscultation, good air exchange, normal expiratory time and normal respiratory effort; negative diminished, wheezes, rhonchi, rales, dullness to percussion, wheeze present on forced exhalation or use of accessory muscles Cardio Cardiac: Positive regular rate, regular rhythm, S1 normal and S2 normal; negative murmur GI GI: Positive normal to inspection, normal bowel sounds and obese; negative distended Genitourinary: Positive deferred Musc Musculoskeletal: Positive steady gait and ROM normal; negative kyphosis or scoliosis Skin Pulmonary Skin Exam: Positive intact; negative rash, lesion, ulcers, erythema, scaly or dermal atrophy Pulses Pulse: Yes pulses normal x4 extremities Extremities Extremities: Yes capillary refill normal, No clubbing, No cyanosis, No edema, No stasis dermatitis Neuro Neurologic: Yes conversant, Yes no focal neuro deficits, Yes cooperative, Yes normal cognition, Yes normal coordination, Yes understands questions, Yes normal concentration Lymph Lymphatic: No lymphadenopathy, No tenderness, No cervical adenopathy, No axillary adenopathy Psych Appearance: Positive grossly normal, eye contact and well kempt Mental Status: Positive mental status grossly normal Mood: Positive labile mood Affect: Positive flat Coding Level of Care Code Off vis,new,level 4 Diagnoses SUSAN (obstructive sleep apnea) G47.33 Class 2 obesity due to excess calories with body mass index (BMI) of 35.0 to 35.9 in adult, unspecified whether serious comorbidity present E66.09; Z68.35 Body mass index: BMI 35.0-35.9 Obesity classification: adult class 2 (BMI 35 - 39.9) Obesity type: due to excess calories Serious obesity comorbidity presence: unspecified whether serious comorbidity present 05/05/17 1239 <Electronically signed by Bhavani NGO> Date Bhavani NGO Cosigner Signature: Date (if applicable) CC: Sy Sharma MD STRESS REPORT Observed: 04/06/2017 Status: F Source: [place] 10:17 AM REPOSITORY [facility] Cardiovascular Services [address] [place] [address] MR#: [id number] Acct: [id number] Name: JIMENEZ GANDARA Rep #: [id number] : 1945 71 From: Aidan Lin MD Primary Care: Sy Sharma MD, Chi Status: REG CLI Ordering Dr: Sex: M C Stress Test Report Exercise myocardial perfusion stress test. 71-year-old man with a history of chest pain and diabetes mellitus. Medications Lipitor carvedilol amlodipine Tradjenta. Stress protocol: Resting EKG demonstrates normal sinus rhythm with a rate of 66 bpm. Resting blood pressure is 150/78 mmHg. The patient exercised according to the regular Errol protocol for total duration of 4 minutes. The maximum heart rate attained was 123 bpm which was 81% of the maximum predicted heart rate the maximum workload attained was 5.8 metabolic equivalents. The patient maintained sinus rhythm throughout the recording. At rest there were no ST or T-wave changes noted suggest ischemia. At peak exercise no ST or T-wave changes were noted suggest ischemia. No arrhythmias were noted. The test was terminated due to shortness of breath. The resting blood pressure was 150/78 with a peak blood pressure of 200/74. Myocardial perfusion protocol. 14.6 mCi of technetium 99m sestamibi was injected at rest. The patient exercised for a total duration of 4 minutes and at peak exercise 44.4 mCi of technetium 99m sestamibi was injected. Stress images were obtained. Stress and rest images were reconstructed and compared in the short axis vertical long and horizontal long axis. Gated images were also obtained. Perfusion SPECT analysis: Review of the stress images demonstrate normal uptake of tracer noted in all areas of the myocardium. The resting images similarly demonstrate normal uptake of tracer noted in all areas of the myocardium. No areas of reversibility are noted suggest ischemia no previous infarct is noted. Gated SPECT analysis: The estimated ejection fraction is 69%. Conclusion: Normal exercise myocardial perfusion stress test at a low to moderate workload. No obvious angina noted. Low workload may affect sensitivity for detection of ischemia. 04/06/17 1017 <Electronically signed by Aidan Lin MD> Date Aidan Lin MD CC: Sy Sharma MD Date Dictated: 04/06/17 1008 Date Transcribed: 04/06/17 1008 Manufacturing Assembler: [employer] Signed ALLERGIES ALLERGIES DATE TYPE / CODE NAME / CODE REACTION SEVERITY SOURCE 03/10/2018 Drug No Known Unknown [place] [facility] Allergy/4160 Allergies/F00 Hospital 61281(SNOMED 6833562(RXNOR Repository CT) M) 12/11/2004 Environ/4201 DUST [facility] 82970(SNOMED [facility] [facility]) Repository ENCOUNTERS ENCOUNTERS ADMIT/DISCHARGE ACCOUNT ADMITTING ENCOUNTER LOCATION SOURCE NUMBER CLASS 03/14/2018 [id number] Ambulatory [facility] Hospital ing:POLAB3 Repository 03/14/2018 [id number] Ambulatory [facility] Hospital ing:LAB.FUTUR Repository E 03/10/2018 [id number] Ambulatory BMSBuilding:B [place] [facility] Repository 03/10/2018 [id number] Ambulatory [facility] Hospital ing:OMD Repository 02/17/2018 [id number] Ambulatory BMSBuilding:B [place] [facility] Repository 01/31/2018/02/02/20 [id number] Ambulatory [address] Repository 01/27/2018 [id number] Ambulatory BMSBuilding:B [place] [facility] Repository 01/18/2018 [id number] Ambulatory [facility] Hospital ing:POLAB3 Repository 01/06/2018 [id number] Ambulatory BMSBuilding:B [place] MS.[facility] Hospital Repository 12/30/2017 [id number] Ambulatory [facility] Hospital ing:POLAB3 Repository 12/30/2017 [id number] Ambulatory [facility] Hospital ing:LAB.FUTUR Repository E 12/22/2017 [id number] [facility] Repository 12/16/2017 [id number] Ambulatory BMSBuilding:B [place] MS.[facility] Hospital Repository 11/30/2017 [id number] [facility] ing[facility]POLAB3 Repository 11/25/2017 [id number] Ambulatory BMSBuilding:B [place] MS.[facility] Hospital Repository 11/19/2017/11/20/19 [id number] Ambulatory BMSBuilding:W [place] [address] [place] [address] Repository 11/18/2017/11/20/19 [id number] [facility] Inpatient [address] Hospital ing:PCURoom: Repository HJZ767Xig: 1 11/18/2017 [id number] [facility] Ambulatory BMSBuilding:B [place] MS.[facility] Repository 11/18/2017 [id number] Ambulatory BMSBuilding:B [place] MS.[facility] Repository 11/03/2017 [id number] Ambulatory BMSBuilding:B [place] MS.[facility] Repository 10/20/2017 [id number] Ambulatory BMSBuilding:B [place] [facility] Repository 10/12/2017/10/13/19 [id number] Ambulatory [facility]B [place] [facility] Repository 10/11/2017/10/28/19 [id number] Ambulatory [address] Repository 10/06/2017 [id number] Ambulatory BMSBuilding:B [place] MS.[facility] Repository 10/04/2017 [id number] [facility] Repository 10/04/2017 [id number] Ambulatory [facility]B [place] [facility] Repository 09/29/2017 [id number] Ambulatory BMSBuilding:B [place] [facility] Repository 09/23/2017 [id number] [facility] ing:LAB.[facility] Repository E 07/27/2017/07/28/19 [id number] [address] [facility] ing:EN Repository 07/27/2017 [id number] Ambulatory [facility]B [place] [facility] Repository 07/22/2017/07/28/19 [id number] Ambulatory [address] Repository 07/22/2017 [id number] Ambulatory [facility] Repository 07/22/2017/07/26/19 [id number] Ambulatory [address] Repository 07/22/2017 [id number] Ambulatory [facility] Repository 07/13/2017 [id number] [facility] ing:POLAB3 Repository 07/08/2017/07/09/19 [id number] Ambulatory BMSBuilding:B [place] [facility] MS.[facility] Repository 06/30/2017 [id number] Ambulatory BMSBuilding:B [place] [facility] Repository 06/28/2017/06/29/19 [id number] Ambulatory [address] Repository 06/28/2017 [id number] Ambulatory [facility] Repository 06/28/2017/06/30/19 [id number] Ambulatory [address] Repository 06/28/2017 [id number] Ambulatory [facility] Repository 06/28/2017 [id number] Ambulatory [facility] Repository 06/28/2017 [id number] Ambulatory [facility] Repository 06/28/2017 [id number] Ambulatory [facility] Repository 06/28/2017 [id number] Ambulatory [facility] Repository 06/28/2017 [id number] Ambulatory [facility] Repository 06/28/2017/06/29/19 [id number] Ambulatory [address] Repository 06/28/2017 [id number] Ambulatory [facility] Repository 06/23/2017 [id number] Ambulatory BMSBuilding:B [place] MS.[facility] Repository 06/18/2017 [id number] [facility] Hospital ing:POLAB3 Repository 06/17/2017 [id number] Ambulatory BMSBuilding:B [place] [facility] Repository 06/16/2017 [id number] [facility] Hospital ing:POLAB3 Repository 06/15/2017 [id number] [facility] Hospital ing:POLAB3 Repository 05/12/2017 [id number] [facility] Hospital ing:LAB.FUTUR Repository E 05/03/2017/05/03/19 [id number] Ambulatory BMSBuilding:B [place] [address] MS.[place] [facility] Repository 04/16/2017 [id number] [facility] Hospital ing:SL Repository 04/06/2017 [id number] [facility] ing[facility] Repository 04/06/2017 [id number] Ambulatory BMSBuilding:W [place] [facility] Repository PAYERS PAYERS ENCOUNTER GUARANTOR PAYER SUBSCRIBER SOURCE 03/14/2018 PREMNARUST Primary Insurance:[facility] ESPERANZA [id number] [facility] [id number] Number: Repository [address]Qnr: 330 [id number] [phone] () Date:5081-45-15VL [address] [address], [place] [address]HZ: CHECK WEBSITE 03/14/2018 Secondary NOT GIVENUNK [place] Insurance:SELF PAY [facility] Number: Effective Repository Date:2017-11-16 03/14/2018 PREMNAUTH Primary NOT GIVENUNK [place] [id number] Insurance:SELF PAY [place], [place] Number: Effective Repository [id number]: 330) Date:2018-03-14 [phone] () 03/10/2018 PREMNAUTH Primary Insurance:[facility] ESPERANZA [id number] [facility] [id number] Number: Repository [address]Ise: 330 [id number] [phone] () Date:2759-97-59FH [address] [address], [place] [address]WQ: CHECK WEBSITE 03/10/2018 Secondary NOT GIVENUNK [place] Insurance:SELF PAY [facility] Number: Effective Repository Date:2018-03-10 03/10/2018 PREMNAUTH Primary Insurance:[facility] ESPERANZA [id number] [facility] [id number] Number: Repository [address]Rhc: 330 [id number] [phone] () Date:5186-46-45TH [address] [address]YBS[place], [place] [address]AS: CHECK WEBSITE 03/10/2018 Secondary NOT GIVENUNK [place] Insurance:SELF PAY [facility] Number: Effective Repository Date:2017-06-21 02/17/2018 PREMNAUTH Primary Insurance:[facility] ESPERANZA [id number] [facility] PAULETTE: [facility] [id number] Number: Repository [id number]: (569) [id number] [phone] () Date:6093-89-11[address] [address]RZYV, [place] [address]KY: CHECK WEBSITE 02/17/2018 Secondary NOT GIVENUNK [place] Insurance:SELF PAY [facility] Number: Effective Repository Date:2018-02-17 01/27/2018 PREMNAUTH Primary Insurance:[facility] ESPERANZA [id number] [facility] NIDA: [facility] [id number] Number: Repository [id number]: (276) [id number] [phone] (HP) Date:3912-14-84[address] [address]JUZCQT[place], [place] [address]CS: CHECK WEBSITE 01/27/2018 Secondary NOT GIVENUNK [place] Insurance:SELF PAY [facility] Number: Effective Repository Date:2018-01-27 01/18/2018 PREMNAUTH Primary Insurance:[facility] ESPERANZA [id number] [facility] NIDA: [facility] [id number] Number: Repository [id number]: 330 [id number] [phone] (HP) Date:2639-80-78PC [address]YPYUFOA, [place] [address]MV: CHECK WEBSITE 01/18/2018 Secondary NOT GIVENUNK [place] Insurance:SELF PAY [facility] Number: Effective Repository Date:2018-01-17 01/06/2018 PREMNAUTH Primary Insurance:[facility] ESPERANZA [id number] [facility] NIDA: [facility] [id number] Number[place] Repository [address]Aji: (305) [id number] [phone] () Date:3922-31-61VX [address] [address]IILYDTQMX, [place] [address]MT: CHECK WEBSITE 01/06/2018 Secondary NOT GIVENUNK [place] Insurance:SELF PAY [facility] Number: Effective Repository Date:2018-01-06 12/30/2017 PREMNAUTH Primary Insurance:[facility] ESPERANZA [id number] [facility] [id number] Number: Repository [address]Uet: 330 [id number] [phone] () Date:8856-50-25RT [address] [address]ALMXTTQBT, [place] [address]PC: CHECK WEBSITE 12/30/2017 Secondary NOT GIVENUNK [place] Insurance:SELF PAY [facility] Number: Effective Repository Date:2017-12-14 12/30/2017 PREMNAUTH Primary Insurance:[facility] ESPERANZA MELO [facility] [id number] Number: Repository [address]Qif: 330 [id number] [phone] () Date:5347-97-84YM [address] [address]OMNCRTGVY, [place] [address]TC: CHECK WEBSITE 12/30/2017 Secondary NOT GIVENUNK [place] Insurance:SELF PAY [facility] Number: Effective Repository Date:2017-12-23 12/22/2017 PREMNAUTH Primary Insurance:[facility] ESPERANZA [id number] [facility]: [facility] [id number] Number: Repository [address]Vtv: 330 [id number] [phone] () Date:1275-37-12DB [address] [address]EGZYWPBBN, [place] [address]HG: CHECK WEBSITE 12/22/2017 Secondary NOT GIVENUNK [place] Insurance:SELF PAY [facility] Number: Effective Repository Date:2017-12-22 12/16/2017 PREMNAUTH Primary Insurance:[facility] ESPERANZA [id number] [facility] PAULETTE: [facility] [id number] Number: Repository [address]Tlf: 330 [id number] [phone] () Date:9858-94-13DA [address] [address]VUXJVWNFW, [place] [address]UX: CHECK WEBSITE 12/16/2017 Secondary NOT GIVENUNK [place] Insurance:SELF PAY [facility] Number: Effective Repository Date:2017-12-16 11/30/2017 PREMNAUTH Primary Insurance:[facility] ESPERANZA ADAMS11 [facility] [id number] Number: Repository [address]Ghk: 330 [id number] [phone] () Date:9681-84-30IM [address] [address]LIRHQQVFT, [place] [address]YH: CHECK WEBSITE 11/30/2017 Secondary NOT GIVENUNK [place] Insurance:SELF PAY [facility] Number: Effective Repository Date:2017-11-29 11/25/2017 PREMNAUTH Primary Insurance:[facility] ESPERANZA ADAMS11 [facility] PAULETTE: [facility] [id number] Number: Repository [address]Oed: 330 [id number] [phone] () Date:6480-33-06AY [address] [address]SJNOAVLFW, [place] [address]TS: CHECK WEBSITE 11/25/2017 Secondary NOT GIVENUNK [place] Insurance:SELF PAY [facility] Number: Effective Repository Date:2017-11-25 11/19/2017 PREMNAUTH Primary Insurance:[facility] ESPERANZA MELO [facility] PAULETTE: [facility] [id number] Number: Repository [address]Pxa: 330 [id number] [phone] () Date:8082-03-59RL [address] [address]ZKZQNSWNV, [place] [address]JO: CHECK WEBSITE 11/19/2017 Secondary NOT GIVENUNK [place] Insurance:SELF PAY [facility] Number: Effective Repository Date:2017-11-19 11/18/2017 PREMNA[place] Primary Insurance:[facility] ESPERANZA [id number] [facility] NIDAB: [facility] [id number] Number: Repository [address]Gnp: 330 [id number] [phone] () Date:1334-27-99LA [address] [address]IDVLEAZOH, [place] [address]LR: CHECK WEBSITE 11/18/2017 Secondary NOT GIVENUNK [place] Insurance:SELF PAY [facility] Number: Effective Repository Date:2017-11-18 11/18/2017 PREMNAUTH Primary Insurance:[facility] ESPERANZA [id number] [facility] NIDAB: [facility] [id number] Number: Repository [address]Lbz: 330 [id number] [phone] () Date:3220-16-74KB [address] [address]OLLWSUFTI, [place] [address]CH: CHECK WEBSITE 11/18/2017 Secondary NOT GIVENUNK [place] Insurance:SELF PAY [facility] Number: Effective Repository Date:2017-11-18 11/18/2017 PREMNA[place] Primary Insurance:[facility] ESPERANZA [id number] [facility] NIDAB: [facility] [id number] Number: Repository [address]Hzj: 330 [id number] [phone] () Date:5441-05-35SB [address] [address]WBSJVDMJG, [place] [address]CW: CHECK WEBSITE 11/18/2017 Secondary NOT GIVENUNK [place] Insurance:SELF PAY [facility] Number: Effective Repository Date:2017-11-18 11/03/2017 PREMNA[place] Primary Insurance:[facility] ESPERANZA [id number] [facility] NIDAB: [facility] [id number] Number: Repository [address]Gad: 330 [id number] [phone] (HP) Date:2075-78-72CJ [address] [address]YAEYUHQKB, [place] [address]GR: CHECK WEBSITE 11/03/2017 Secondary NOT GIVENUNK [place] Insurance:SELF PAY [facility] Number: Effective Repository Date:2017-11-03 10/20/2017 PREMNA[place] Primary Insurance:[facility] ESPERANZA [id number] [facility] AMER[facility]AT[facility]: [facility] [id number] Number: Repository [address]Llg: 330 [id number] [phone] (HP) Date:1472-86-56OB [address] [address]MEIGITXZX, [place] [address]RW: CHECK WEBSITE 10/20/2017 Secondary NOT GIVENUNK [place] Insurance:SELF PAY [facility] Number: Effective Repository Date:2017-10-20 10/12/2017 PREMNA[place] Primary Insurance:[facility] ESPERANZA [id number] [facility]: [facility] [id number] Number: Repository [address]Aij: 330 [id number] [phone] (HP) Date:1412-55-16QP [address] [address]DBHMDNIEW, [place] [address]EV: CHECK WEBSITE 10/12/2017 Secondary NOT GIVENUNK [place] Insurance:SELF PAY [facility] Number: Effective Repository Date:2017-10-12 10/06/2017 PREMNA[place] Primary Insurance:[facility] ESPERANZA [id number] [facility]: [facility] [id number]: Repository [address]Qxv: 330 [id number] [phone] (HP) Date:1691-75-15JU [address] [address]FBLFMLIVQ, [place] [address]LG: CHECK WEBSITE 10/06/2017 Secondary NOT GIVENUNK [place] Insurance:SELF PAY [facility] Number: Effective Repository Date:2017-10-06 10/04/2017 PREMNA[place] Primary Insurance:[facility] ESPERANZA [id number] [facility] NIDAB: [facility] [id number] Number: Repository [address]Ota: 330 [id number] [phone] () Date:7112-87-76LG [address] [address]RUCNDPXFA, [place] [address]NQ: CHECK WEBSITE 10/04/2017 Secondary NOT GIVENUNK [place] Insurance:SELF PAY [facility] Number: Effective Repository Date:2017-09-29 10/04/2017 PREMNAUTH Primary Insurance:[facility] ESPERANZA [id number] [facility]: [facility] [id number] Number: Repository [address]Jjz: 330 [id number] [phone] () Date:8174-45-62JV [address] [address]YTUHMKGZP, [place] [address]LF: CHECK WEBSITE 10/04/2017 Secondary NOT GIVENUNK [place] Insurance:SELF PAY [facility] Number: Effective Repository Date:2017-10-04 09/29/2017 PREMNA[place] Primary Insurance:[facility] ESPERANZA [id number] [facility] NIDA: [facility] [id number] Number: Repository [address]Kyb: 330 [id number] [phone] () Date:3956-70-72QX [address] [address]OVWZKJPAK, [place] [address]QD: CHECK WEBSITE 09/29/2017 Secondary NOT GIVENUNK [place] Insurance:SELF PAY [facility] Number: Effective Repository Date:2017-09-29 09/23/2017 PREMNA[place] Primary Insurance:[facility] ESPERANZA [id number] [facility] NIDA: [facility] [id number] Number: Repository [address]Got: [id number] [phone] Date:0486-85-59HK [address] () [address]NCWNLHQQS, [place] [address]CN: CHECK WEBSITE 09/23/2017 Secondary NOT GIVENUNK [place] Insurance:SELF PAY [facility] Number: Effective Repository Date:2017-07-19 07/27/2017 PRE[place] Primary Insurance:[facility] ESPERANZA [id number] [facility] NIDAB: [facility] [id number] Number: Repository [address]Ubk: [id number] [phone] Date:1721-25-09EO [address] () [address]NYZEHELVJ, [place] [address]VV: CHECK WEBSITE 07/27/2017 Secondary NOT GIVENUNK [place] Insurance:SELF PAY [facility] Number: Effective Repository Date:2017-07-08 07/27/2017 PREMNARUST Primary Insurance:[facility] ESPERANZA ZARATESINGH4111 [facility] NIDAB: [facility] [id number] Number: Repository [address]Lpg: [id number] [phone] Date:8496-22-43IO [address] () [address]804OMWPFIYHT, [place] [address]IG: CHECK WEBSITE 07/27/2017 Secondary NOT GIVENUNK [place] Insurance:SELF PAY [facility] Number: Effective Repository Date:2017-07-27 07/13/2017 PREMNA[place] Primary Insurance:[facility] ESPERANZA [id number] [facility] NIDAB: [facility] [id number] Number: Repository [address]Mjh: [id number] [phone] Date:0910-70-02MW [address] () [address]BQJXXPUST, [place] [address]AO: CHECK WEBSITE 07/13/2017 Secondary NOT GIVENUNK [place] Insurance:SELF PAY [facility] Number: Effective Repository Date:2017-05-31 07/08/2017 PREM[place] Primary Insurance:[facility] ESPERANZA [id number] [facility] NIDAB: [facility] [id number] Number: Repository [address]Fyi: [id number] [phone] Date:8508-01-59QO [address] (HP) [address]FARAKOQOW, [place] [address]PO: CHECK WEBSITE 07/08/2017 Secondary NOT GIVENUNK [place] Insurance:SELF PAY [facility] Number: Effective Repository Date:2017-07-08 06/30/2017 PREMNA[place] Primary Insurance:[facility] ESPERANZA [id number] [facility]: [facility] [id number] [place] Number: Repository [address]Xsg: [id number] [phone] Date:3792-91-21UU [address] () [address]27LNOWTHFXL, [place] [address]VF: CHECK WEBSITE 06/30/2017 Secondary NOT GIVENUNK [place] Insurance:SELF PAY [facility] Number: Effective Repository Date:2017-06-30 06/23/2017 PREMNA[place] Primary Insurance:[facility] ESPERANZA [id number] [facility]: [facility] [id number] [place] Number: Repository [address]Tbe: [id number] [phone] Date:7506-05-11GP [address] () [address]SVFFFPTRT, [place] [address]ET: CHECK WEBSITE 06/23/2017 Secondary NOT GIVENUNK [place] Insurance:SELF PAY [facility] Number: Effective Repository Date:2017-06-23 06/18/2017 PREM[place] Primary Insurance:[facility] ESPERANZA [id number] [facility]: [facility] [id number] Number: Repository [address]Pgt: [id number] [phone] Date:5649-74-51NY [address] () [address]507KXJVHWMZQ, [place] [address]NM: CHECK WEBSITE 06/18/2017 Secondary NOT GIVENUNK [place] Insurance:SELF PAY [facility] Number: Effective Repository Date:2017-06-18 06/17/2017 PREMN[place] Primary Insurance:[facility] ESPERANZA [id number] [facility] NIDAB: [facility] [id number] Number: Repository [address]Dtu: [id number] [phone] Date:6704-50-77VN [address] () [address]JZSABQDTN, [place] [address]YS: CHECK WEBSITE 06/17/2017 Secondary NOT GIVENUNK [place] Insurance:SELF PAY [facility] Number: Effective Repository Date:2017-05-03 06/16/2017 PREMN[place] Primary Insurance:[facility] ESP[facility]ANZA [id number] [facility] NIDAB: [facility] [id number] Number: Repository [address]Hjr: [id number] [phone] Date:8307-86-76DU [address] () [address]SXHSZPNZR, [place] [address]KL: CHECK WEBSITE 06/16/2017 Secondary NOT GIVENUNK [place] Insurance:SELF PAY [facility] Number: Effective Repository Date:2017-06-16 06/15/2017 PREMN[place] Primary Insurance:[facility] ESP[facility]ANZA [id number] [facility] NIDAB: [facility] [id number] Number: Repository [address]Kkd: [id number] [phone] Date:3024-67-04DJ [address] (HP) [address]GTMJTLFQF, [place] [address]LE: CHECK WEBSITE 06/15/2017 Secondary NOT GIVENUNK [place] Insurance:SELF PAY [facility] Number: Effective Repository Date:2017-06-15 05/12/2017 PRE[place] Primary Insurance:[facility] ESPERANZA [id number] [facility] NIDAB: [facility] [id number] Number: Repository [address]Dfs: [id number] [phone] Date:9892-04-95WA [address] () [address]FNEXBAJNR, [place] [address]YY: CHECK WEBSITE 05/12/2017 Secondary NOT GIVENUNK [place] Insurance:SELF PAY [facility] Number: Effective Repository Date:2017-03-30 05/03/2017 PREM[place] Primary Insurance:[facility] ESPERANZA ADAMS11 [facility]: [facility] [id number] Number: Repository [address]Pfs: [id number] [phone] Date:6790-85-21UU [address] () [address]RVHWKQOED, [place] [address]UF: CHECK WEBSITE 05/03/2017 Secondary NOT GIVENUNK [place] Insurance:SELF PAY [facility] Number: Effective Repository Date:2017-04-09 04/16/2017 PREM[place] Primary Insurance:[facility] ESPERANZA [id number] [facility]: [facility] [id number] Number: Repository [address]Tji: [id number] [phone] Date:8737-96-63IJ [address] () [address]TYOONLGXC, [place] [address]AW: CHECK WEBSITE 04/16/2017 Secondary NOT GIVENUNK [place] Insurance:SELF PAY [facility] Number: Effective Repository Date:2017-03-23 04/06/2017 Premnauth Primary Insurance:[facility] ESPERANZA Melo [facility] [id number] [place] [address] Number: Repository [address]Qvb: [id number] [phone] Date:3237-88-71JC [address] () [address]362ZUXWNOGSO, [place] [address]AO: CHECK WEBSITE 04/06/2017 Secondary NOT GIVENUNK [place] Insurance:SELF PAY [facility] Number: Effective Repository Date:2017-03-17 04/06/2017 [facility]: [facility] [id number] Number: Repository [address]Lmr: [id number] [phone] Date:0023-17-76SK [address] () [address]IBIKDQLKU, [place] [address]ZO: CHECK WEBSITE 04/06/2017 Secondary NOT GIVENUNK [place] Insurance:SELF PAY [facility] Number: Effective Repository Date:2017-04-06
== END ==
PROVIDERS: Family Provider Family Medicine Geriatric Medicine; PCP Family Medicine Geriatric Medicine; Visit Provider Internal Medicine Nephrology
DX: N18.4 Chronic kidney disease, stage 4 (severe) (principal); E11.9 Type 2 diabetes mellitus without complications; E55.9 Vitamin D deficiency, unspecified; I10 Essential (primary) hypertension; Z12.5 Encounter for screening for malignant neoplasm of prostate
CPT/HCPCS: 36415; 80053; 82306; 83970; 84100; 84153; 84443; 85025; G0103

== ENCOUNTER → 2018-05-04 13:29 | Outpatient (CLI) | payer OTHER, SELFPAY ==
[2018-04-28 14:22] VITALS: BMI 32.6
[2018-05-04 17:28] LABS: Hematocrit 37.2 % (40-54); Hemoglobin 11.5 g/dl (13.0-16.5); Mean Corp Hgb Conc 30.9 g/gl (32-36); Mean Corpuscular Hgb 25.3 pg (27.0-32.0); Mean Corpuscular Volume 81.8 fL (80-94); Mean Platelet Vol. 11.2 fl (6.2-12.0); Platelet Count 223 K/mm3 (150-450); RBC Distribution Width CV 14.8 % (11.6-14.6); RBC Distribution Width SD 43.2 fl (35.1-43.9); Red Blood Count 4.55 M/mm3 (4.6-6.2); White Blood Count 7.5 K/mm3 (4.4-11.0)
[2018-05-04 17:35] LABS: Scan Indicated on CBC? Y/N NO
[2018-05-04 17:46] LABS: Albumin, Serum 3.3 g/dL (3.2-5.0); BUN 38 mg/dL (7-18); BUN/Creat Ratio 9.5 RATIO (10-20); Calcium,Total 8.9 mg/dL (8.5-10.1); Chloride 106 mmol/L (98-107); Creatinine, Serum 4.01 mg/dL (0.70-1.30); EST Glomerular Filtration Rate 16 mL/min (>60); Est Glom Filt Rate - Afr Amer 19 mL/min (>60); Glucose 190 mg/dL (74-106); Phosphorus 4.6 mg/dL (2.5-4.9); Potassium 4.6 mmol/L (3.5-5.1); Sodium Level 142 mmol/L (136-145)
[2018-05-04 17:53] LABS: PTHIN 54.6 pg/mL (18.4-80.1)
--- OUTSIDE RECORDS SUMMARY | 2018-07-06 12:30 | XMS RPT_ITS ---
:1945 Author Organization OHIP Support Name Relationship Address Phone JOSE GANDARA Unavailable [address] + [place] [address] R Unavailable Unavailable Unavailable KALIKASINGH, JOSE Unavailable [address] + [place] [address] R Unavailable Unavailable Unavailable KALIKASINGH, JOSE Unavailable [address] + [place] [address] R Unavailable Unavailable Unavailable KALIKASINGH, JOSE Unavailable [address] + [place] [address] R Unavailable Unavailable Unavailable KALIKASINGH, JOSE Unavailable [address] + [place] [address] R Unavailable Unavailable Unavailable KALIKASINGH, JOSE Unavailable [address] + [place] [address] R Unavailable Unavailable Unavailable KALIKASINGH, JOSE Unavailable [address] + [place] [address] R Unavailable Unavailable Unavailable KALIKASINGH, JOSE Unavailable [address] + [place] [address] R Unavailable Unavailable Unavailable KALIKASINGH, JOSE Unavailable [address] + [place] [address] R Unavailable Unavailable Unavailable KALIKASINGH, JOSE Unavailable [address] + [place] [address] R Unavailable Unavailable Unavailable KALIKASINGH, JOSE Unavailable [address] + [place] [address] R Unavailable Unavailable Unavailable KALIKASINGH, JOSE Unavailable [address] + [place] [address] R Unavailable Unavailable Unavailable KALIKASINGH, JOSE Unavailable [address] + [place] [address] R Unavailable Unavailable Unavailable KALIKASINGH, JOSE Unavailable [address] + [place] [address] R Unavailable Unavailable Unavailable KALIKASINGH, JOSE Unavailable [address] + [place] [address] R Unavailable Unavailable Unavailable KALIKASINGH, JOSE Unavailable [address] + [place] [address] R Unavailable Unavailable Unavailable KALIKASINGH, JOSE Unavailable [address] + [place] [address] R Unavailable Unavailable Unavailable KALIKASINGH, JOSE Unavailable [address] + [place] [address] R Unavailable Unavailable Unavailable KALIKASINGH, JOSE Unavailable [address] + [place] [address] R Unavailable Unavailable Unavailable KALIKASINGH, JOSE Unavailable [address] + [place] [address] R Unavailable Unavailable Unavailable KALIKASINGH, JOSE Unavailable [address] + [place] [address] R Unavailable Unavailable Unavailable KALIKASINGH, JOSE Unavailable [address] + [place] [address] R Unavailable Unavailable Unavailable KALIKASINGH, GENO Unavailable [address] + [place] [address] R Unavailable Unavailable Unavailable KALIKASINGH, GENO Unavailable [address] + [place] [address] R Unavailable Unavailable Unavailable KALIKASINGH, GENO Unavailable [address] + [place] [address] R Unavailable Unavailable Unavailable KALIKASINGH, GENO Unavailable [address] + [place] [address] R Unavailable Unavailable Unavailable KALIKASINGH, GENO Unavailable [address] + [place] [address] R Unavailable Unavailable Unavailable KALIKASINGH, GENO Unavailable [address] + [place] [address] R Unavailable Unavailable Unavailable KALIKASINGH, GENO Unavailable [address] + [place] [address] R Unavailable Unavailable Unavailable KALIKASINGH, GENO Unavailable [address] [phone] [place] [address] R Unavailable Unavailable Unavailable KALIKASINGH, GENO Unavailable [address] [phone] [place] [address] R Unavailable Unavailable Unavailable KALIKASINGH, GENO Unavailable [address] [phone] [place] [address] R Unavailable Unavailable Unavailable KALIKASINGH, GENO Unavailable [address] [phone] [place] [address] R Unavailable Unavailable Unavailable KALIKASINGH, GENO Unavailable [address] [phone] [place] [address] R Unavailable Unavailable Unavailable KALIKASINGH, GENO Unavailable [address] [phone] [place] [address] R Unavailable Unavailable Unavailable KALIKASINGH, GENO Unavailable [address] [phone] [place] [address] R Unavailable Unavailable Unavailable R Unavailable Unavailable Unavailable R Unavailable Unavailable Unavailable R Unavailable Unavailable Unavailable R Unavailable Unavailable Unavailable KALIKASINISRAEL YUY Unavailable [address] + [place] [address] R Unavailable Unavailable Unavailable R Unavailable Unavailable Unavailable Care Team Providers Name Role Phone DOMINGUEZ MARY Referring Unavailable NANCY OLGUIN Referring Unavailable DOMINGUEZ, MARY Referring Unavailable CHADWICK TURNER Referring Unavailable RAVINDER JONES (FEL) Attending Unavailable LUIZ PEREZ Referring Unavailable BRANDON HOWARD Referring Unavailable DOMINGUEZ, MARY Referring Unavailable DOMINGUEZ, MARY Referring Unavailable DOMINGUEZ, MARY Referring Unavailable DOMINGUEZ, MARY Referring Unavailable DOMINGUEZ, MARY Referring Unavailable DOMINGUEZ, MARY Referring Unavailable DOMINGUEZ, MARY Referring Unavailable DOMINGUEZ, MARY Referring Unavailable TRISH AYERS (RD) Attending Unavailable DOMINGUEZ, MARY Referring Unavailable DOMINGUEZ, MARY Referring Unavailable Isckarus, Mansour Attending Unavailable Zachary, Sy Chi Referring Unavailable Zachary, Sy Chi Primary Care Unavailable Isckarus, Mansour Consulting Unavailable MADDIE PAUL Attending Unavailable Zachary, Sy Chi Primary Care Unavailable Zachary, Sy Chi Primary Care Unavailable Dominguez, Mary Attending Unavailable Dominguez, Mary Attending Unavailable Zachary, [...] Consulting Unavailable Cebul, Carlos Manuel Attending Unavailable Zacahry, Sy Chi Referring Unavailable Zachary, Sy Chi [...] TYPE CONDITION / CODE ATTENDING STATUS SOURCE 04/28/2018 Unknown N18.4 - Chronic kidney Isckarus, Active [place] disease, stage 4 [facility] (severe) / Hospital N18.4(ICD-10) Repository 12/22/2017 Unknown E11.9 - Type 2 Zachary, Sy Chi Active [place] diabetes mellitus Community without complications Hospital / E11.9(ICD-10) Repository 12/22/2017 Unknown I10 - Essential Zachary, Sy Chi Active [place] (primary) hypertension Community / I10(ICD-10) Hospital Repository 12/22/2017 Unknown E55.9 - Vitamin D Zachary, Sy Chi Active [place] deficiency, Community unspecified / Hospital E55.9(ICD-10) Repository 12/30/2017 Unknown I48.91 - Unspecified Riley, Aidan Active [place] atrial fibrillation / Community I48.91(ICD-10) Hospital Repository 12/30/2017 Unknown R94.31 - Abnormal Riley, [place] Active [place] electrocardiogram Community [ECG] [EKG] / Hospital R94.31(ICD-10) Repository 07/22/2017 Active Encounter for NA Active [facility] pre[facility]cedural [facility] Main cardiovascular [place] examination / Repository Z01.810(ICD-10) 07/22/2017 Active Encounter for NA Active [facility] screening for Clinic Main malignant neoplasm of [place] colon / Z12.11(ICD-10) Repository 07/22/2017 Active Encounter for other NA Active [facility] pre[facility]cedural [facility] Main examination / [place] Z01.818(ICD-10) Repository 07/22/2017 Active Unspecified kidney NA Active [facility] failure / N19(ICD-10) Clinic Main [place] Repository 07/22/2017 Active Chronic kidney NA Active [facility] disease, stage 4 Clinic Main (severe) / [place] N18.4(ICD-10) Repository 07/09/2017 Unknown D64.9 - Anemia, Cebul, Carlos Manuel Active [place] unspecified / Community D64.9(ICD-10) Hospital Repository 06/28/2017 Active Type 2 diabetes NA Active [facility] mellitus without Clinic Main complications / [place] E11.9(ICD-10) Repository 06/25/2015 Active Essential (primary) NA Active [facility] hypertension / Clinic Main I10(ICD-10) [place] Repository 03/29/2015 Active Mixed hyperlipidemia / NA Active [facility] E78.2(ICD-10) Clinic Main [place] Repository 06/28/2017 Active Encounter for NA Active [facility] screening for Clinic Main infections with a [place] predominantly sexual Repository mode of transmission / Z11.3(ICD-10) 06/28/2017 Active Encounter for NA Active [facility] screening for [facility] Main malignant neoplasm of [place] prostate / Repository Z12.5(ICD-10) 06/28/2017 Active Other specified NA Active [facility] symptoms and signs Clinic Main involving the [place] digestive system and Repository abdomen / R19.8(ICD-10) 06/28/2017 Active Unknown / UNK(Unknown) NA Active [facility] [place] Repository 06/16/2017 Unknown E87.6 - Hypokalemia / Zachary, Sy Chi Active [place] E87.6(ICD-10) [facility] Repository PROCEDURES PROCEDURES No Procedure Records FoundRESULTS RESULTS CBC-COMPLETE BLOOD CNT Collected: 05/04/2018 Status: F Source: [place] NO DIFF 1:33 PM [facility] REPOSITORY TYPE CODE TESTS RESULT OUT OF RANGE REFERENCE UNITS LAB L100.1000 4.4-11.0 K/mm3 Normal WBC 7.5 LAB L100.1200 4.6-6.2 M/mm3 Low RBC 4.55 LAB L100.1300 13.0-16.5 g/dl Low HGB 11.5 LAB L100.1400 40-54 % Low HCT 37.2 LAB L100.1500 80-94 fL Normal MCV 81.8 LAB L100.1600 27.0-32.0 pg Low MCH 25.3 LAB L100.1700 32-36 g/gl Low MCHC 30.9 LAB L100.1810 11.6-14.6 % High RDW CV 14.8 LAB L100.1820 35.1-43.9 fl Normal RDW SD 43.2 LAB L100.1900 150-450 K/mm3 Normal PLT 223 LAB L100.2000 6.2-12.0 fl Normal MPV 11.2 Performed By: #### L100.0500 #### [facility] [address] [place], [place], [address] RENAL PROFILE Collected: 05/04/2018 Status: F Source: [place] 1:33 PM [facility] REPOSITORY TYPE CODE TESTS RESULT OUT OF RANGE REFERENCE UNITS LAB L501.0100 74-106 mg/dL High GLU 190 Result Comment: Fasting Glucose result greater than or equal to 126 mg/dL suggests DIABETES MELLITUS per A.D.A. criteria. Please note revised GLUCOSE reference range effective 2017. LAB L501.1000 7-18 mg/dL High BUN 38 LAB L501.1100 0.70-1.30 mg/dL High CREAT,SERUM 4.01 Result Comment: The validity of the calculated GFR AND GFRAA in patients over 70 years has not been determined. Clinical correlation is essential. LAB L501.1110 >60 mL/min Low EST GFR 16 Result Comment: Non- GFR Calc LAB L501.1115 >60 mL/min Low EST GFR - AA 19 Result Comment: GFR Calc LAB L501.1300 10-20 RATIO Low BUN/CRE 9.5 LAB L501.1800 3.2-5.0 g/dL Normal ALB 3.3 LAB L501.2200 8.5-10.1 mg/dL Normal CA 8.9 LAB L501.2300 2.5-4.9 mg/dL Normal PHOS 4.6 LAB L501.5300 136-145 mmol/L Normal NA 142 LAB L501.5600 3.5-5.1 mmol/L Normal K 4.6 LAB L501.5900 98-107 mmol/L Normal CL 106 LAB L501.6100 21.0-32.0 mmol/L Normal CO2 27.0 Performed By: #### L500.3600 #### [facility] [address] [place], [address] PTHIN Collected: 05/04/2018 Status: F Source: [place] 1:33 PM [facility] REPOSITORY TYPE CODE TESTS RESULT OUT OF RANGE REFERENCE UNITS LAB L509.1000 18.4-80.1 pg/mL Normal PTHIN 54.6 Performed By: #### L509.1000 #### [facility] [address] [place], [address] ONCOLOGY VISIT REPORT Observed: 04/28/2018 Status: F Source: [place] 2:38 PM [facility] REPOSITORY [facility] [address] 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 Though he is of [place] ancestry he himself has never traveled to [...] Weight in Pounds 215.0 lbs Pulse Ox 97 - Physical Exam [...] lymphadenopathy, Supraclavicular lymphadenopathy Laboratory Data: Laboratory Tests WBC 7.6 (4.4-11.0) K/mm3 RBC 4.59 L (4.6-6.2) M/mm3 Assessment and Plan 72-year-old gentleman with a slowly progressively worsening chronic anemia, symptomatic, most consistent with anemia of chronic kidney disease. His iron studies do not show any evidence of iron deficiency on oral iron supplementation(March of 2018) . His H AND H did improve to target (hemoglobin 10-12 g per DL) consistent with a response to treatment. Plan: #1 continue oral iron supplementation 1 tablet daily. #2 Procrit Dose Reduction down to 20,000 units and Follow up in 4 weeks (more convenient for the patient). Impression and plan discussed. Medications: Prescriptions This Visit Medication Instructions Recorded Amlodipine [Norvasc] 10 mg PO DAILY 06/23/17 Atorvastatin Calcium [Lipitor] 40 mg PO QHS 06/23/17 Calcitriol 5 mcg PO DAILY 06/23/17 Primary Care Provider: Sy Sharma Referring Provider: Sy Sharma 04/28/18 1715 <Electronically signed by Shania Hanks MD> Date Shania Hanks MD Cosigner Signature: Date (if applicable) CC: CBC W/DIFF, AUTOMATED Collected: 04/28/2018 Status: F Source: [place] 1:59 PM [facility] REPOSITORY Order Comment: Reason for Laboratory Test . TYPE CODE TESTS RESULT OUT OF RANGE REFERENCE UNITS LAB L100.1000 4.4-11.0 K/mm3 Normal WBC 7.6 LAB L100.1200 4.6-6.2 M/mm3 Low RBC 4.59 LAB L100.1300 13.0-16.5 g/dl Low HGB 11.8 LAB L100.1400 40-54 % Low HCT 37.1 LAB L100.1500 80-94 fL Normal MCV 80.8 LAB L100.1600 27.0-32.0 pg Low MCH 25.7 LAB L100.1700 32-36 g/gl Low MCHC 31.8 LAB L100.1810 11.6-14.6 % High RDW CV 14.8 LAB L100.1820 35.1-43.9 fl Normal RDW SD 43.2 LAB L100.1900 150-450 K/mm3 Normal PLT 152 LAB L100.2000 6.2-12.0 fl Normal MPV 11.4 LAB L100.2100 47-70 % Normal NEUT% 56.3 LAB L100.2200 19-41 % Normal LY% 28.3 LAB L100.2300 0-10 % Normal MONO% 6.7 LAB L100.2400 0-5 % High EO% 8.3 LAB L100.2500 0-1 % Normal BASO% 0.3 LAB L100.2550 0.0-0.9 % Normal IM GRAN % 0.100 Result Comment: IG% - Immature Granulocytes (promyelocytes, myelocytes and metamyelocytes) > 1% indicates that a LEFT SHIFT is Present. LAB L100.2620 2.0-7.7 X10 3/uL Normal Absolute Neut 4.3 LAB L100.2720 0.83-4.51 X10 3/ul Normal Absolute Lymph 2.14 LAB L100.4500 Normal SMEAR COMMENT COMMENT Result Comment: SLIDE SCANNED - RARE RBC FRAGMENTS SEEN. Performed By: #### L100.0100 #### [facility] [address] [place], [address] CNCO Observed: 04/26/2018 Status: COMPLETED Source: [facility] 12:00 AM [facility] REPOSITORY Letter Text ONCOLOGY VISIT REPORT Observed: 03/31/2018 Status: F Source: [place] 3:32 PM [facility] REPOSITORY [facility] [address] 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 Though he is of [place] ancestry he himself has never traveled to [facility] and to his knowledge never exposed [...] Signs Height 5 ft 8 in Weight: 97.795 kg Weight in Pounds 215.6 lbs Pulse Ox 97 - Physical Exam General: Alert, Oriented x3, No apparent distress, - - ECOG 1 HEENT: Atraumatic, PERRLA, EOMI, Normocephalic Oropharynx:: Dry mucosa Neck:: Supple, Trachea midline. Negative for: JVD, bilateral Cardiac:: Regular rate, Regular rhythm, Normal S1, Normal S2. Negative for: Murmur Lungs: Clear to auscultation, Excusion symmetrical. Negative for: Rhonchi, Wheezes Extremities:: Negative for: Cyanosis, Edema Neurological: Neuro grossly intact Skin:: Negative for: Lesions, Rash, Petechiae, Ecchymosis Psychiatric:: Appropriate affect, Euthymic Laboratory Data: Laboratory Tests WBC 6.0 (4.4-11.0) K/mm3 RBC 4.23 L (4.6-6.2) M/mm3 Assessment and Plan 72-year-old gentleman with a [...] tablet daily. #2 Procrit Dose change to 25,000 units and further increase the interval to every 4 weeks (more convenient for the patient). #3 Iron profile update pending Impression and plan discussed. Medications: Prescriptions This Visit Medication Instructions Recorded Amlodipine [Norvasc] 10 mg PO DAILY 06/23/17 Atorvastatin Calcium [Lipitor] 40 mg PO QHS 06/23/17 Calcitriol 5 mcg PO DAILY 06/23/17 Primary Care Provider: Sy Sharma Referring Provider: Sy Sharma 03/31/18 1532 <Electronically signed by Shania Hanks MD> Date Shania Hanks MD Cosigner Signature: Date (if applicable) CC: CBC W/DIFF, AUTOMATED Collected: 03/31/2018 Status: F Source: [place] 1:27 PM [facility] REPOSITORY Order Comment: Reason for Laboratory Test . TYPE CODE TESTS RESULT OUT OF RANGE REFERENCE UNITS LAB L100.1000 4.4-11.0 K/mm3 Normal WBC 6.0 LAB L100.1200 4.6-6.2 M/mm3 Low RBC 4.23 LAB L100.1300 13.0-16.5 g/dl Low HGB 10.7 LAB L100.1400 40-54 % Low HCT 33.5 LAB L100.1500 80-94 fL Low MCV 79.2 LAB L100.1600 27.0-32.0 pg Low MCH 25.3 LAB L100.1700 32-36 g/gl Low MCHC 31.9 LAB L100.1810 11.6-14.6 % High RDW CV 14.8 LAB L100.1820 35.1-43.9 fl Normal RDW SD 43.1 LAB L100.1900 150-450 K/mm3 Normal PLT 165 LAB L100.2000 6.2-12.0 fl Normal MPV 10.3 LAB L100.2100 47-70 % Normal NEUT% 54.4 LAB L100.2200 19-41 % Normal LY% 29.4 LAB L100.2300 0-10 % Normal MONO% 6.1 LAB L100.2400 0-5 % High EO% 9.6 LAB L100.2500 0-1 % Normal BASO% 0.5 LAB L100.2550 0.0-0.9 % Normal IM GRAN % 0.000 Result Comment: IG% - Immature Granulocytes (promyelocytes, myelocytes and metamyelocytes) > 1% indicates that a LEFT SHIFT is Present. LAB L100.2620 2.0-7.7 X10 3/uL Normal Absolute Neut 3.2 LAB L100.2720 0.83-4.51 X10 3/ul Normal Absolute Lymph 1.75 Performed By: #### L100.0100 #### [facility] [place], [address] IRON+IRON BINDING Collected: 03/31/2018 Status: F Source: [facility] 1:27 PM [facility] REPOSITORY Order Comment: Reason for Laboratory Test . TYPE CODE TESTS RESULT OUT OF RANGE REFERENCE UNITS LAB L503.6075 250-450 ug/dL Low TIBC 211 LAB L503.6150 65-175 ug/dL IRON Normal 103 LAB L503.6250 15.0-55.0 % IRON Normal SATURATION 48.8 Performed By: #### L503.6030, L503.6550 #### [facility] [address] [place], [address] FERRITIN Collected: 03/31/2018 Status: F Source: [place] 1:27 PM [facility] REPOSITORY Order Comment: Reason for Laboratory Test . TYPE CODE TESTS RESULT OUT OF RANGE REFERENCE UNITS LAB L503.6550 26-388 ng/mL Normal FERRITIN 128 Performed By: #### L503.6030, L503.6550 #### [facility] [address] [place], [address] CBC W/DIFF, AUTOMATED Collected: 03/14/2018 Status: F Source: [place] 11:54 AM [facility] REPOSITORY Order Comment: DR MIX ORDERED CBC [...] Performed By: #### L100.0100 #### [facility] [address] [place], [address] PTHIN Collected: 03/14/2018 Status: F Source: [place] 11:54 AM [facility] REPOSITORY Order Comment: DR MIX ORDERED CBC PTH RENAL ONLY TYPE CODE TESTS RESULT OUT OF RANGE REFERENCE UNITS LAB L509.1000 18.4-80.1 pg/mL High PTHIN 124.5 Performed By: #### L509.1000 #### [facility] [address] [place], [address] VITAMIN D,25 HYDROXY Collected: 03/14/2018 Status: F Source: [place] 11:54 AM [facility] REPOSITORY Order Comment: DR MIX ORDERED CBC [...] Performed By: #### L506.1000 #### [facility] [address] [place], [address] COMPREHENSIVE METABOLIC Collected: 03/14/2018 Status: F Source: [facility] 11:54 AM [facility] REPOSITORY Order Comment: DR MIX ORDERED CBC [...] L500.4050, L501.2300, L501.9520, L501.9910 #### [facility] [address] [place], [address] PHOSPHORUS Collected: 03/14/2018 Status: F Source: [place] 11:54 AM [facility] REPOSITORY Order Comment: DR MIX ORDERED CBC PTH RENAL ONLY TYPE CODE TESTS RESULT OUT OF RANGE REFERENCE UNITS LAB L501.2300 2.5-4.9 mg/dL Normal PHOS 3.9 Performed By: #### L500.4050, L501.2300, L501.9520, L501.9910 #### [facility] [address] [place], [address] THYROID STIM HORMONE Collected: 03/14/2018 Status: F Source: [place] (TSH) 11:54 AM [facility] REPOSITORY Order Comment: DR MIX ORDERED CBC PTH RENAL ONLY TYPE CODE TESTS RESULT OUT OF RANGE REFERENCE UNITS LAB L501.9520 0.358-3.74 uIU/mL High TSH 4.00 Performed By: #### L500.4050, L501.2300, L501.9520, L501.9910 #### [facility] [address] [place], [address] PSA,TOTAL - ANNUAL Collected: 03/14/2018 Status: F Source: [place] SCREEN 11:54 AM [facility] REPOSITORY Order Comment: DR MIX ORDERED CBC PTH RENAL ONLY TYPE CODE TESTS RESULT OUT OF RANGE REFERENCE UNITS LAB L501.9910 0.00-4.00 ng/mL Normal PSA,TOT 0.77 SCREEN Result Comment: This test was performed using the TPSA assay method for the [employer] chemistry system. Values obtained with different assay methods cannot be used interchangably. When changing PSA assays in the course of monitoring a patient, additional sequential testing should be carried out to confirm baseline values. Performed By: #### L500.4050, L501.2300, L501.9520, L501.9910 #### [facility] [address] [place], [address] ONCOLOGY VISIT REPORT Observed: 03/10/2018 Status: F Source: [place] 12:23 PM [facility] REPOSITORY [place] [facility] [address] 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 Though he is of [place] ancestry he himself has never traveled to [facility] and to his knowledge never exposed [...] 03/10/2018 Status: F Source: [place] 11:23 AM [facility] REPOSITORY Order Comment: Reason for Laboratory Test [...] Performed By: #### L100.0100 #### [facility] [address] [place], [place], [address] CNCO Observed: 02/23/2018 Status: COMPLETED Source: [place] 12:00 AM [facility] REPOSITORY Letter Text ONCOLOGY VISIT REPORT Observed: 02/17/2018 Status: F Source: [place] 3:10 PM [facility] REPOSITORY [place] [facility] [address] 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 Though he is of [place] ancestry he himself has never traveled to [facility] and to his knowledge never exposed [...] Primary Care Provider: Sy Sharma Referring Provider: yS Sharma 02/17/18 7670 <Electronically signed by Shania Hanks MD> Date Shania Hanks MD Cosigner Signature: Date (if applicable) CC: CBC W/DIFF, AUTOMATED Collected: 02/17/2018 Status: F Source: [place] 2:33 PM [facility] REPOSITORY Order Comment: Reason for Laboratory Test [...] Performed By: #### L100.0100 #### [facility] [address] [place], [address] PROGRESS Observed: 01/31/2018 Status: COMPLETED Source: [place] 1:01 PM [facility] REPOSITORY HNO ID: [id number] Author: Melissa Gan LPN Service: (none) Author Type: (none) Type: Progress Notes Filed: 01/31/2018 1:02 PM Note Text: Patient presents for Twinrx vaccine. Denies any problems at this time. Tolerated injection well. Melissa Gan LPN CNNURSE Observed: 01/31/2018 Status: COMPLETED Source: COS COB 1:00 PM [facility] REPOSITORY Nurse Visit (FAMPWS) JIMENEZ GANDARA ([id number]) 1945 M TRN Date Time Provider Department 01/31/18 1:00 PM [facility] your [facility] today, we recorded [...] VISIT REPORT Observed: 01/27/2018 Status: F Source: RENEE 2:47 PM [facility] REPOSITORY [facility] [address] [place] [address] OFFICE VISIT Date of Service: 01/27/18 1421 MR#: [id number] Acct: [id number] Name: JIMENEZ GANDARA Rep #: [id number] : 1945 From: Shania Hanks MD Age/Sex: 72/M Location: [facility] Status: Signed - Problem List (1) Anemia of chronic renal failure, stage 4 (severe) Status: Chronic - Date of Service Date of Service:: 01/27/18 - Chief Complaint Anemia - History of Present Illness 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 Though he is of [place] ancestry he himself has never traveled to [facility] and to his knowledge never exposed [...] Sy Sharma Referring Provider: Sy Sharma 01/27/18 1447 <Electronically signed by Shania Hanks MD> Date Shania Hanks MD Cosigner Signature: Date (if applicable) CC: CBC W/DIFF, AUTOMATED Collected: 01/27/2018 Status: F Source: RENEE 2:12 PM [facility] REPOSITORY Order Comment: Reason for Laboratory Test [...] Performed By: #### L100.0100 #### [facility] [address] [facility]. [place], [place], [id number] CBC-COMPLETE BLOOD CNT Collected: 01/18/2018 Status: F Source: EMERY NO DIFF 10:49 AM [facility] REPOSITORY TYPE CODE TESTS RESULT OUT OF [...] Performed By: #### L100.0500 #### [facility] [address] [facility] [place], [address] RENAL PROFILE Collected: 01/18/2018 Status: F Source: EMERY 10:49 AM [facility] REPOSITORY TYPE CODE TESTS RESULT OUT OF [...] Performed By: #### L500.3600 #### [facility] [address] [place], [address] PTHIN Collected: 01/18/2018 Status: F Source: RENEE 10:49 AM [facility] REPOSITORY TYPE CODE TESTS RESULT OUT OF RANGE REFERENCE UNITS LAB L509.1000 18.4-80.1 pg/mL High PTHIN 269.3 Performed By: #### L509.1000 #### [facility] [address] [place], [address] ONCOLOGY VISIT REPORT Observed: 01/06/2018 Status: F Source: RENEE 1:51 PM [facility] REPOSITORY [facility] [address] 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 Though he is of [place] ancestry he himself has never traveled to [facility] and to his knowledge never exposed [...] Sy Sharma Referring Provider: Sy Sharma 01/06/18 1351 <Electronically signed by Shania Hanks MD> Date Shania Hanks MD Cosigner Signature: Date (if applicable) CC: ELENI W/DIFF, AUTOMATED Collected: 01/06/2018 Status: F Source: RENEE 1:01 PM [facility] REPOSITORY Order Comment: Reason for Laboratory Test [...] Lymph 1.55 Performed By: #### L100.0100 #### [facility] [address] [place], [address] CNCO Observed: 01/03/2018 Status: COMPLETED Source: COS COB 12:00 AM [facility] REPOSITORY Letter Text Kidney and Pancreas Transplant Program Pre-Transplant Office [address] [place] [address], [address] [address] , ext. [phone] January 03, [address] [place] [id number] : 1945 Dear Mr. Gandara, You have been approved for Kidney Transplant at [facility] and have been actively listed on the [employer] (UNOS) national donor kidney waiting list. Please return for annual re-evaluation with a CT or MRI imaging when you return for wait list. Listing Date: 12/31/2017 Communication with the transplant office is very important while you are listed and awaiting transplant surgery. Please contact the transplant office at extension [phone] or [phone] with any of the following: If you [...] prescription coverage ? please contact Sussy Schulz, Dye Jig Operator, at: extension [phone] or [phone] You will be required to have blood drawn monthly while you are on the waiting list. You can have this drawn at any [facility] lab. If you are on dialysis [...] indicate whether you are coming to a [facility] lab or having it drawn locally. Please carry a list of all medications and doses with you at all times. When you are contacted to come to [facility] for a potential transplant, also bring [...] necessary, you will be contacted by your air export coordinator to further discuss this option. Attached is a letter from the [employer] Organ [employer]aring (UNOS). It describes the services and information offered to patients by UNOS and the Organ Procurement and Transplant Network. Please also review the attached [facility] Transplant [place] Program Coverage Plan Letter. If you need to reach the Kidney Transplant Office or have any questions or concerns, please call extension [phone] or [phone]. Thank you for choosing [facility] for your care. Sincerely, [facility] Kidney Transplant Program [facility] Transplant [place] Program Coverage Plan To our Patients and Family Members, This is to provide you information regarding our plan to provide [id number] medical and surgical coverage for our organ transplant programs. As a premier teaching institution, the [facility] has a team of staff transplant surgeons and physicians, supported by fellows and residents, available 24 hours a day, 7 days a week to provide World Class Care to all of our transplant candidates, recipients and living donors. When not on the premises, at least one doctor is forestry contractor for each transplant program and can be reached via cell phone and a central Skype paging system. Operational integrity, quality control associate, and standard of care is monitored and evaluated by the Director of the Transplant Center, the Medical and Surgical Directors of each transplant program and the Transplant Urogynecology Physician. If you have any questions or concerns regarding our program coverage plan, please discuss with your physician or air export coordinator. Sincerely, Nellie Ewing RN, BSN, CNOR, CCTN, CCTC Transplant Cash Applications Analyst Contact The Transplant Center: [facility], [address] [place], [place] [address] Heart [phone] / [phone] [id number] Heart/Lung [phone] / [phone] [id number] Intestinal [phone] / [phone] [id number] Kidney [phone] / [phone] [id number] Kidney/Pancreas [phone] / [phone] [id number] Liver [phone] / [phone] [id number] Lung [phone] / [phone] [id number] Pancreas [phone] / [phone] [id number] CNCO Observed: 01/03/2018 Status: COMPLETED Source: COS COB 12:00 AM [facility] [place] REPOSITORY Letter Text Kidney and Pancreas Transplant Pre-transplant Department January 03, 2018 Mary Mix [address] [facility] [address] RE: Jimenez Gandara Date Listed: 12/31/[address] Mix: Thank you for referring your patient to the [facility]. We are pleased to inform you that this patient has been activated on the [facility] donor kidney transplant waiting list. We would appreciate your assistance in keeping us up-to-date on any medical changes which may occur during the waiting period. Patients will be re-evaluated for transplantation as needed based upon their current condition. If you have any questions, please feel free to contact the Transplant Office at [phone] ext. [phone] or [phone]. Sincerely, [facility] Kidney and Pancreas Transplant Program PROGRESS Observed: 12/31/2017 Status: COMPLETED Source: COS COB 12:58 PM [facility] REPOSITORY HNO ID: [id number] Author: Farhad Whitmore RN Service: (none) Author Type: (none) Type: Progress Notes Filed: 12/31/2017 12:58 PM Note Text: ABO Verification prior to Listing: Jimenez Gnadara's ABO blood type has been verified using source documentation from samples: ? drawn on two separate occasions ? with different collection times ? submitted as separate samples The results of these samples are the same and indicate that the patient's ABO blood type is: A. Transplant Coordinators performing verification: 1. Farhad Whitmore RN 2. Mariusz GUDINON, RN Patient has been added to the OS waiting list. Farhad Whitmore RN Pre-Blueprint Trimmer PROGRESS Observed: 12/31/2017 Status: COMPLETED Source: AMBERLY 12:52 PM [facility] [place] REPOSITORY HNO ID: [id number] Author: Farhad Whitmore RN Service: (none) Author Type: (none) Type: Progress Notes Filed: 12/31/2017 12:57 PM Note Text: Rec'd insurance authorization for listing from [facility]. Patient has kidney transplant authorization from 12/31/17-12/31/18. Reference number [id number] Farhad Whitmore RN RENAL PROFILE Collected: 12/30/2017 Status: F Source: RENEE 2:03 PM [facility] REPOSITORY TYPE CODE TESTS RESULT OUT OF [...] Performed By: #### L500.3600 #### [facility] [address] [place], [address] PROGRESS Observed: 12/24/2017 Status: COMPLETED Source: COS COB 12:57 PM [facility] [place] REPOSITORY HNO ID: [id number] Author: Farhad Whitmore RN Service: (none) Author [...] transplant. Farhad Whitmore RN Pre-Kidney AND Pancreas Blueprint Trimmer [facility] CBC W/DIFF, AUTOMATED Collected: 12/22/2017 Status: F Source: RENEE 11:46 AM [facility] REPOSITORY TYPE CODE TESTS RESULT OUT OF [...] Performed By: #### L100.0100 #### [facility] [address] [place], [place], [address] COMPREHENSIVE METABOLIC Collected: 12/22/2017 Status: F Source: [facility] 11:46 AM [facility] REPOSITORY TYPE CODE TESTS RESULT OUT OF [...] By: #### L500.4050, L501.9520 #### [facility] [address] [place], [place], [address] THYROID STIM HORMONE Collected: 12/22/2017 Status: F Source: EMERY (TSH) 11:46 AM [facility] REPOSITORY TYPE CODE TESTS RESULT OUT OF RANGE REFERENCE UNITS LAB L501.9520 0.358-3.74 uIU/mL Normal TSH 2.81 Performed By: #### L500.4050, L501.9520 #### [facility] [address] [place], [place], [address] VITAMIN D,25 HYDROXY Collected: 12/22/2017 Status: F Source: EMERY 11:46 AM [facility] REPOSITORY TYPE CODE TESTS RESULT OUT OF REFERENCE UNITS RANGE LAB L506.1000 29.95-100.01 ng/mL Low Vitamin D 14.1 25-OH Result Comment: Vitamin D 25(OH) Status Range Deficiency <20 ng/mL (50nmol/L) Insuffciency 20 - 30 ng/mL (50 - 75 nmol/L) Sufficiency 30 - 100 ng/mL (75 - 250 nmol/L) Toxicity >100 ng/mL (>250 nmol/L) Performed By: #### L506.1000 #### [facility] [address] [place], [address] PROGRESS Observed: 12/17/2017 Status: COMPLETED Source: COS COB 9:58 AM [facility] [place] REPOSITORY HNO ID: [id number] Author: Haris Ye (Pharmacist) Service: (none) Author [...] bedtime. For cholesterol. 90 tablet 3 Haris Ye PharmD Transplant Clinical Pharmacist ONCOLOGY VISIT REPORT Observed: 12/16/2017 Status: F Source: RENEE 2:27 PM [facility] REPOSITORY [facility] [place] [address] OFFICE VISIT Date of Service: 12/16/17 1340 MR#: [id number] Acct: [id number] Name: JIMENEZ GANDARA Rep #: [id number] : 1945 From: Shania Hanks MD Age/Sex: 72/M Location: OMD Status: Signed - Problem List (1) Anemia of chronic renal failure, stage 4 (severe) Status: Chronic - Date of Service Date of Service:: 12/16/17 - Chief Complaint Anemia - History of Present Illness 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 Though he is of [place] ancestry he himself has never traveled to [facility] and to his knowledge never exposed [...] Sy Sharma Referring Provider: Sy Sharma 12/16/17 1427 <Electronically signed by Shania Hanks MD> Date Shania Hanks MD Cosigner Signature: Date (if applicable) CC: ELENI W/DIFF, AUTOMATED Collected: 12/16/2017 Status: F Source: RENEE 1:28 PM [facility] REPOSITORY Order Comment: Reason for Laboratory Test [...] Performed By: #### L100.0100 #### [facility] [address] [place], [address] PROGRESS Observed: 12/01/2017 Status: COMPLETED Source: AMBERLY 1:47 PM [facility] [place] REPOSITORY HNO ID: [id number] Author: Farhad Beckman-Aysha RN Service: (none) Author Type: (none) Type: [...] vs.DD options and wait list ?b. SCD, INSPECTOR SEMICONDUCTOR WAFER and DCD kidneys ?c. CDC high risk [...] suitable psychosocial candidate for a kidney transplant. PAULA Jain, RIMA 12/16/2017 Nutrition Patient's nutrition status during pretransplant evaluation demonstrates no contra indications for transplantation. Trish Ayers [address] Pharmacy The patient's medication profile was reviewed and there are no identified medication issues that would preclude transplant in this patient. Haris Ye, HoangD Transplant Clinical Pharmacist [facility] [place] Other Consults ID consult 07/22/17 No ID [...] Program, Joesph Humphreys, PhD, [facility], Maddie Yip, NORMA Pre-air export coordinator, RIMA Pat, Social Work, Cody Phelps MD Transplant Heel Sewer, Kaleb Lugo, Patient Lead Based Paint Technician, Bhavani Malcolm [facility], UNEMPLOYMENT BENEFITS CLAIMS TAKER, Emmett Cornell MD Transplant Surgeon, Lucita Barrera RN, Pre-air export coordinator, Martina Butler RN, Lead data security coordinator, Be Caldwell MD, Cardiology, Luiz Perez MD, Transplant Heel Sewer, ABIODUN HannaS, Social Work, Veronica Hernandez MD Fellow-Bioethics, Christiano Toney MD, Transplant Nephrology Fellow, Zeferino Girard MD ?Transplant Heel Sewer , Farhad Whitmore RN, Pre-Blueprint Trimmer, Neftaly Tierney MD Transplant Heel Sewer, Edward Prater CNP, Transplant Nurse Practitioner, Reji Iglesias RN, Pre-Blueprint Trimmer, Carlotta Muhammad CNP, Clinical Nurse Sales Trader, Sheree Mcknight, NORMA Post Blueprint Trimmer, Haris Ye, PharmD, Janette Nicholas MD, Olimpia Masterson, TODD, Ning Cabezas, Student, and Corinne Doyle, Student. [...] F Source: RENEE NO DIFF 2:32 PM [facility] REPOSITORY TYPE CODE TESTS RESULT OUT OF [...] Performed By: #### L100.0500 #### [facility] [address] [place], [address] BASIC METABOLIC Collected: 11/30/2017 Status: F Source: EMERY PROFILE (BMP) 2:32 PM [facility] REPOSITORY TYPE CODE TESTS RESULT OUT OF [...] Performed By: #### L500.2500 #### [facility] [address] [place], [address] PTHIN Collected: 11/30/2017 Status: F Source: RENEE 2:32 PM [facility] REPOSITORY TYPE CODE TESTS RESULT OUT OF RANGE REFERENCE UNITS LAB L509.1000 18.4-80.1 pg/mL High PTHIN 240.0 Performed By: #### L509.1000 #### [facility] [address] 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 Though he is of [place] ancestry he himself has never traveled to [facility] and to his knowledge never exposed [...] 11/25/2017 Status: F Source: RENEE 3:22 PM [facility] REPOSITORY Order Comment: Reason for Laboratory Test [...] Performed By: #### L100.0100 #### [facility] [facility] [place], [address] 12 LEAD ELECTROCARDIOGRAM Observed: 11/22/2017 Status: F Source: EMERY 2:21 PM [facility] REPOSITORY [facility] Cardiovascular Services [address] [place] [address] 12 Lead EKG 11/18/17 1445 MR#: [id number] Acct: [id number] Name: JIMENEZ GANDARA Rep #: [id number] : 1945 72 From: Aidan Lin MD Attending Dr: Sary Leonard Status: DIS IN Ordering Dr: Aggie Vela DO Date: 11/18/17 Location: [facility] Sex: M C Admitted: 11/18/17 Test Reason [...] ECG Confirmed by AIDAN LIN MD ([id number]), film editor supervisor AASHISH PRICE ([id number]) on 11/22/2017 2:21:05 PM Referred By: SJ/C Confirmed By:AIDAN LIN MD 11/22/17 1421 Date Aidan Lin MD CC: Sary Leonard; Aggie Vela DO; Sy Sharma MD Signed DISCHARGE SUMMARY Observed: 11/19/2017 Status: F Source: EMERY 2:58 PM [facility] REPOSITORY [facility] Medical Records Department [address] [place] [address] Discharge Summary 11/19/17 1414 MR#: [id number] Acct: [id number] Name: JIMENEZ GANDARA Rep #: [id number] : 1945 72 From: Heladio HARRIS PCP: Sy Sharma MD, Chi Status: DIS IN Y Location: [place] [id number] <Heladio Capps - Last Filed: 11/19/17 14:14> [...] demonstrated improvement in his underlying CKD. His manufacturing assembler was called, Dr. Mix, and felt that he could be seen in the office that his numbers were improved significantly. With resolution of his AK I he was discharged home in stable condition. He will need to follow-up with his manufacturing assembler as directed, as well as with his PCP in 1-2 weeks. This patient was seen by Heladio Capps PA-C under the supervision of Doctor Leonard. [] Discharge Diet: Low fat/ Low Cholesterol, [...] all that apply): None applicable <Sary Leonard E - Last Filed: 11/19/17 14:57> Discharge Date [...] grossly intact This note was generated with [employer] dictation software. It may contain incorrect words, spelling, and punctuation that were not noted in checking the note before signing. Minutes spent on discharge:: 26 Patient Condition:: Stable Meaningful Use Info Meaningful Use Diagnoses (Choose all that apply): None applicable Code Visit Inpatient E AND M: 94109 Disch Hosp 11/19/17 1419 <Electronically signed by Heladio HARRIS> Date Heladio HARRIS 11/19/17 4780<Electronically signed by Sary Leonard MD> Cosigner Signature (if applicable): Date Sary Leonard MD CC: STEVEN Capps; Mary Mix DO; Sary Leonard; Sy Sharma MD Signed DISCHARGE INSTRUCTION Observed: 11/19/2017 Status: F Source: RENEE 12:28 PM [facility] REPOSITORY [facility] Medical Records Department [address] [place] [address] Instructions for Home/Discharge Instructions 11/19/171225 MR#: [id number] Acct: [id number] Name: JIMENEZ GANDARA Rep #: [id number] : 1945 72 From: Heladio HARRIS PCP: [...] Mary Mix DO Proposed Discharge Date: 11/19/17 11/19/178 <Electronically signed by Heladio HARRIS> Date Heladio HARRIS CC: Mary iMx DO; Sy Sharma MD BEDSIDE GLUCOSE Collected: 11/19/2017 Status: F Source: EMERY 6:40 AM [facility] REPOSITORY TYPE CODE TESTS RESULT OUT OF REFERENCE UNITS RANGE LAB L501.080 70-110 mg/dL High BEDSIDE GLU 113 Result Comment: MANAGEMENT OF PATIENT CARE PER NURSING PROTOCOL Performed By: #### L501.080 #### [facility] Point of Care [address] [place], [place] [address] PROTHROMBIN TIME W/INR Collected: 11/19/2017 Status: F Source: EMERY 5:15 AM [facility] REPOSITORY TYPE CODE TESTS RESULT OUT OF RANGE REFERENCE UNITS LAB L300.4150 11.7-14.9 SECONDS Normal PROTIME 14.9 LAB L300.4200 Normal INR 1.2 Performed By: #### L300.3900 #### [facility] [address] [place], [place], [address] RENAL PROFILE Collected: 11/19/2017 Status: F Source: EMERY 5:15 AM [facility] REPOSITORY TYPE CODE TESTS RESULT OUT OF [...] Performed By: #### L500.3600 #### [facility] [address] [facility] [place], [place], [address] TROPONIN-I Collected: 11/18/2017 Status: F Source: EMERY 10:52 PM [facility] REPOSITORY Order Comment: 'TROP' Serial specimen #1, #2 or #3: 2 TYPE CODE TESTS RESULT OUT OF RANGE REFERENCE UNITS LAB L501.4010 <0.045 ng/mL Normal < 0.015 TROPONIN-I Result Comment: TROPONIN-I EXPECTED VALUES <0.045 Negative 0.045 - 0.590 Consistent with Cardiac Damage > OR = 0.600 Critical Value Not every elevated troponin is indicative of AR. These values should be used with clinical judgement in examining the patient's clinical picture for diagnosis. To establish a diagnosis of AR versus myocardial injury, there must be a demonstrated rise and/or fall in the troponin values, in addition to ischemic symptoms, EKG changes, new regional wall motion abnormality, and/or angiographical evidence. PLEASE NOTE: REFERENCE RANGES EDITED 17 Performed By: #### L501.4010 #### [facility] [address] [facility] [place], [address] TROPONIN-I Collected: 11/18/2017 Status: F Source: EMERY 8:24 PM [facility] REPOSITORY Order Comment: 'TROP' Serial specimen #1, #2 or #3: 2 TYPE CODE TESTS RESULT OUT OF RANGE REFERENCE UNITS LAB L501.4010 <0.045 ng/mL Normal < 0.015 TROPONIN-I Result Comment: TROPONIN-I EXPECTED VALUES <0.045 Negative 0.045 - 0.590 Consistent with Cardiac Damage > OR = 0.600 Critical Value Not every elevated troponin is indicative of AR. These values should be used with clinical judgement in examining the patient's clinical picture for diagnosis. To establish a diagnosis of AR versus myocardial injury, there must be a demonstrated rise and/or fall in the troponin values, in addition to ischemic symptoms, EKG changes, new regional wall motion abnormality, and/or angiographical evidence. PLEASE NOTE: REFERENCE RANGES EDITED 17 Performed By: #### L501.4010 #### [facility] [address] [place], [address] HISTORY AND PHYSICAL Observed: 11/18/2017 Status: F Source: EMERY EXAM 6:29 PM [facility] REPOSITORY [facility] Medical Records Department [address] [place] [address] History and Physical 11/18/17 1822 MR#: [id number] Acct: [id number] Name: JIMENEZ GANDARA Rep #: [id number] : 1945 72 From: Santino De La Torre DO PCP: Zachary JOSEPH,Sy Chi Status: REG ER Y Location: ED Problem [...] De La Torre DO) S/P colonoscopy Z98.890 [place] teeth removed K08.409 Surgical History: no surgical [...] to May 16, 2014. Electronically Signed: Froilan ValdesDO at 16:09 EDT Tel [phone], Service support , Chest X-Ray 11/18/17 15:10 IMPRESSION: No acute cardiopulmonary disease or major interval change. Electronically Signed: Froilan LucioDO at 16:12 EDT Tel [phone], Service support , Cervical Spine X-Ray 11/18/17 15:12 IMPRESSION: Straightening of the cervical lordosis with degenerative changes of the cervical spine. Electronically Signed: Froilan LucioDO at 16:11 EDT Tel [phone], Service support , Assessment/Plan All Active Problems [...] IV I am going to consult his manufacturing assembler, Dr. Mix 2. Hyperkalemia * Further with [...] heparin Code Visit Inpatient E AND M: 12889 Init Hosp L3 11/18/17 1829 <Electronically signed by Santino De La Torre DO> Date Santino De La Torre DO Cosigner Signature: Date (if applicable) CC: Santino De La Torre DO; Sy Sharma MD Signed EMERGENCY DEPARTMENT Observed: 11/18/2017 Status: F Source: EMERY SUMMARY 5:09 PM [facility] REPOSITORY [facility] Medical Records Department [address] [facility] [place] [address] Emergency Department Summary 11/18/17 1708 MR#: [id number] Acct: [id number] Name: JIMENEZ GANDARA Rep #: [id number] : 1945 72 From: Aggie Vela DO [...] cervical strain] This note was generated with [employer] software. It may contain incorrect words, spelling, [...] your Primary Care Provider. Call [facility] ([phone]) or report to the closest Emergency Room. Call 911 if necessary. 11/18/17 1709 <Electronically signed by Aggie Vela DO> Date Aggie Vela DO Cosigner Signature (If Indicated): Date CC: Sy Sharma MD EMERGENCY DEPARTMENT Observed: 11/18/2017 Status: F Source: EMERY SUMMARY 3:35 PM [facility] REPOSITORY [facility] Medical Records Department [address] [place] [address] Emergency Department Summary 11/18/17 1531 MR#: [id number] Acct: [id number] Name: JIMENEZ GANDARA Rep #: [id number] : 1945 72 From: gAgie Vela DO PCP: Sy Sharma MD, Chi [...] rebound or rigidity, no peritoneal signs. Neuro xbwi-jojpfr-lblp and heel garcia testing within normal limits, [...] Impression: [] This note was generated with [employer] dictation software. It may contain incorrect words, [...] problems, contact your Primary Care Provider. Call [facility] ([phone]) or report to the closest Emergency Room. Call 911 if necessary. 11/18/17 0528 <Electronically signed by Aggie Vela DO> Date Aggie Vela DO Cosigner Signature (If Indicated): Date CC: Sy Sharma MD CBC W/DIFF, AUTOMATED Collected: 11/18/2017 Status: F Source: RENEE 3:35 PM [facility] REPOSITORY TYPE CODE TESTS RESULT OUT OF [...] Performed By: #### L100.0100 #### [facility] [address] [facility] [place], [place], [address] BASIC METABOLIC Collected: 11/18/2017 Status: F Source: EMERY PROFILE (BMP) 3:35 PM [facility] REPOSITORY TYPE CODE TESTS RESULT OUT OF [...] By: #### L500.2500, L501.4010 #### [facility] [address] [facility] [address] [place], [place], [address] TROPONIN-I Collected: 11/18/2017 Status: F Source: EMERY 3:35 PM [facility] REPOSITORY TYPE CODE TESTS RESULT OUT OF RANGE REFERENCE UNITS LAB L501.4010 <0.045 ng/mL Normal < 0.015 TROPONIN-I Result Comment: TROPONIN-I EXPECTED VALUES <0.045 Negative 0.045 - 0.590 Consistent with Cardiac Damage > OR = 0.600 Critical Value Not every elevated troponin is indicative of AR. These values should be used with clinical judgement in examining the patient's clinical picture for diagnosis. To establish a diagnosis of AR versus myocardial injury, there must be a demonstrated rise and/or fall in the troponin values, in addition to ischemic symptoms, EKG changes, new regional wall motion abnormality, and/or angiographical evidence. PLEASE NOTE: REFERENCE RANGES EDITED 17 Performed By: #### L500.2500, L501.4010 #### [facility] [address] [facility] [place], [address] BRAIN/HEAD WITHOUT Observed: 11/18/2017 Status: F Source: EMERY CONTRAST 3:12 PM [facility] REPOSITORY [facility] Imaging Services [address] [facility] [place] [address] Brain/Head without Contrast MR#: [id number] Acct: [id number] Name: JIMENEZ GANDARA Rep #: [id number] : 1945 M 72 From: Froilan Valdes DO PCP: Sy Sharma MD, Chi Status: REG ER Study: Brain/Head without Contrast Date of Exam: 11/18/17 Exam# [id number] Ordering Dr: Aggie Vela DO STUDY: CT [...] Froilan Valdes DO at 16:09 EDT Tel [phone], Service support , CC: Aggie Vela DO; Sy Sharma MD Crop Pest Control Specialist: Signed CERV SPINE 2 OR 3 Observed: 11/18/2017 Status: F Source: EMERY VIEWS 3:12 PM [facility] REPOSITORY [facility] Imaging Services [address] [place] [address] Cerv Spine 2 or 3 Views MR#: [id number] Acct: [id number] Name: JIMENEZ GANDARA Rep #: [id number] : 1945 M 72 From: Froilan Valdes DO PCP: Sy Sharma MD, Chi Status: REG ER Study: Cerv Spine 2 or 3 Views Date of Exam: 11/18/17 Exam# [id number] Ordering Dr: Aggie Vela DO STUDY: X-RAY [...] Froilan Valdes DO at 16:11 EDT Tel [phone], Service support , CC: Aggie Vela DO; Sy Sharma MD Crop Pest Control Specialist: Signed CHEST 1 VIEW Observed: 11/18/2017 Status: F Source: RENEE (PORTABLE) 3:12 PM [facility] REPOSITORY [facility] Imaging Services [address] [place] [address] Chest 1 View (Portable) MR#: [id number] Acct: [id number] Name: JIMENEZ GANDARA Rep #: [id number] : 1945 M 72 From: Froilan Valdes DO PCP: Sy Sharma MD, Chi Status: REG ER Study: Chest 1 View (Portable) Date of Exam: 11/18/17 Exam# [id number] Ordering Dr: Aggie Vela DO STUDY: X-RAY [...] Froilan Valdes DO at 16:12 EDT Tel [phone], Service support , CC: Aggie Vela DO; Sy Sharma MD Crop Pest Control Specialist: Signed ONCOLOGY VISIT REPORT Observed: 11/03/2017 Status: F Source: EMERY 1:55 PM [facility] REPOSITORY [facility] [address] [place] [address] OFFICE VISIT Date of Service: 11/03/17 1321 MR#: [id number] Acct: [id number] Name: JIMENEZ GANDARA Rep #: [id number] : 1945 From: Shania Hanks MD Age/Sex: 72/M Location: OMD Status: Signed - Problem List (1) Anemia of chronic renal failure, stage 4 (severe) Status: Chronic - Date of Service Date of Service:: 11/03/17 - Chief Complaint Anemia - History of Present Illness 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 Though he is of [place] ancestry he himself has never traveled to [facility] and to his knowledge never exposed [...] 11/03/2017 Status: F Source: RENEE 12:45 PM [facility] REPOSITORY Order Comment: Reason for Laboratory Test [...] Performed By: #### L100.0100 #### [facility] [address] [place], [address] ONCOLOGY VISIT REPORT Observed: 10/20/2017 Status: F Source: EMERY 2:22 PM [facility] REPOSITORY [facility] [address] 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 Though he is of [place] ancestry he himself has never traveled to [...] W/DIFF, AUTOMATED Collected: 10/20/2017 Status: F Source: EMERY 1:10 PM [facility] REPOSITORY Order Comment: Reason for Laboratory Test [...] Performed By: #### L100.0100 #### [facility] [address] [place], [address] SURGERY VISIT REPORT Observed: 10/12/2017 Status: F Source: EMERY 3:36 PM [facility] REPOSITORY [facility] [address] [place] [address] OFFICE VISIT Date of Service: 10/12/17 MR#: [id number] Acct: [id number] Name: JIMENEZ GANDARA Rep #: [id number] : 1945 Provider: Carlos Manuel Sorto MD Age/Sex: 72/M Location: [facility] Status: Signed Intake Vital Signs10/12/17 Height 5 ft 8 in 10/12/17 Weight: 208 lb 3 oz 10/12/17 Body Mass Index (BMI) 31.6 10/12/17 Blood Pressure 146/71 Intake Visit Reasons: Consult for Fistula vein mapping 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) DM2 (diabetes mellitus, type 2) (Chronic) Hypertensive urgency (Acute) ARF (acute renal failure) (Acute) HTN (hypertension) (Chronic) Pre-syncope (Acute) Anemia (Acute) Hyperlipidemia (Acute) Surgical History S/P colonoscopy (Acute) [place] teeth removed (Acute) Family History Father Pneumonia [...] His is Milena At the [facility] on October 04, 2017 he had [...] MD PROGRESS Observed: 10/11/2017 Status: COMPLETED Source: COS COB 1:41 PM [facility] REPOSITORY HNO ID: [id number] Author: Melissa Gan LPN Service: (none) Author Type: (none) Type: Progress Notes Filed: 10/11/2017 1:42 PM Note Text: Patient presents for Hepatitis B and Shingrix vaccines. Denies any problems at this time. Tolerated injections well. Melissa Gan LPN CNNURSE Observed: 10/11/2017 Status: COMPLETED Source: COS COB 1:30 PM [facility] REPOSITORY Nurse Visit (FAMPWS) JIMENEZ GANDARA ([id number]) 1945 M TRN Date Time Provider Department 10/11/17 1:30 PM [facility] N[facility]SE FLOWER During your visit today, we [...] DUPLEX UPPER Observed: 10/04/2017 Status: F Source: EMERY EXTREMITY 5:47 PM [facility] REPOSITORY [facility] Cardiovascular Services [address] [place] [address] Saphenous Vein Mapping, Bilat 10/04/17 1024 MR#: [id number] Acct: [id number] Name: JIMENEZ GANDARA Rep #: [id number] : 1945 72 From: Carlos Manuel Sorto [...] Mary Mix Performed By: Mariusz Sarmiento RVT 10/04/171746 Date Carlos Manuel Sorto MD CC: Mary Mix DO; Sy Sharma MD Date Dictated: 10/04/17 1024 Date Transcribed: 10/04/171746 Crop Pest Control Specialist: Signed ONCOLOGY VISIT REPORT Observed: 09/29/2017 Status: F Source: RENEE 1:49 PM [facility] REPOSITORY [facility] [address] [place], [place] [address]iban. 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 Though he is of [place] ancestry he himself has never traveled to [facility] and to his knowledge never exposed [...] Sy Sharma Referring Provider: Sy Sharma 09/29/17 2884 <Electronically signed by Shania Hanks MD> Date Shania Hanks MD Cosigner Signature: Date (if applicable) CC: Sy Sharma MD PROTEIN+CREATININE Collected: Status: F Source: RENEE RATIO,URINE 09/23/2017 12:45 PM [facility] REPOSITORY TYPE CODE TESTS RESULT OUT OF RANGE REFERENCE UNITS LAB L501.1200 NO RANGE EST. mg/dL Normal UR CREAT 92.30 LAB L501.1930 <11.9 mg/dL High 256.6 PROTEIN,UR.R AN. LAB L501.1940 0-200 mg/g CRE High PROT:CRE 2780 RATIO Performed By: #### L501.0900 #### [facility] [address] [place], [address] PTHIN Collected: 09/23/2017 Status: F Source: RENEE 12:45 PM [facility] REPOSITORY Order Comment: WANTS THE [facility] PTH PROCRE CBC BAKARI WANTS THE [facility] ERYTHROPROTIEN CBC TYPE CODE TESTS RESULT OUT OF RANGE REFERENCE UNITS LAB L509.1000 18.4-80.1 pg/mL High PTHIN 97.1 Performed By: #### L509.1000 #### [facility] [address] [place], [place], [address] COMPREHENSIVE METABOLIC Collected: 09/23/2017 Status: F Source: RENEE PROFIL 12:40 PM [facility] REPOSITORY Order Comment: Reason for Laboratory Test ,. Reason for Laboratory Test . WANTS THE [facility] PTH PROCRE CBC BAKARI WANTS THE [facility] ERYTHROPROTIEN CBC TYPE CODE TESTS RESULT OUT [...] L500.4050, L501.2300, L503.6030, L503.6550 #### [facility] [address] [place], [place], [address] #### L3100.1350 #### [facility] (refer to report for specific site) refer to report for address and phone number PHOSPHORUS Collected: 09/23/2017 Status: F Source: EMERY 12:40 PM [facility] REPOSITORY Order Comment: Reason for Laboratory Test ,. Reason for Laboratory Test . WANTS THE PHOS CMP [facility] PTH PROCRE CBC BAKARI WANTS THE [facility] CMP ERYTHROPROTIEN CBC TYPE CODE TESTS RESULT OUT OF RANGE REFERENCE UNITS LAB L501.2300 2.5-4.9 mg/dL Normal PHOS 4.1 Performed By: #### L500.4050, L501.2300, L503.6030, L503.6550 #### [facility] [address] [place], [address] #### L3100.1350 #### [facility] (refer to report for specific site) refer to report for address and phone number IRON+IRON BINDING Collected: 09/23/2017 Status: F Source: [facility] 12:40 PM [facility] REPOSITORY Order Comment: Reason for Laboratory Test ,. Reason for Laboratory Test . WANTS THE PHOS [facility] PTH PROCRE CBC BAKARI WANTS THE [facility] ERYTHROPROTIEN CBC TYPE CODE TESTS RESULT OUT OF RANGE REFERENCE UNITS LAB L503.6075 250-450 ug/dL Low TIBC 215 LAB L503.6150 65-175 ug/dL IRON Normal 79 LAB L503.6250 15.0-55.0 % IRON Normal SATURATION 36.7 Performed By: #### L500.4050, L501.2300, L503.6030, L503.6550 #### [facility] [address] [place], [address] #### L3100.1350 #### [facility] (refer to report for specific site) refer to report for address and phone number FERRITIN Collected: 09/23/2017 Status: F Source: EMERY 12:40 PM [facility] REPOSITORY Order Comment: Reason for Laboratory Test ,. Reason for Laboratory Test . WANTS THE PHOS [facility] PTH PROCRE CBC BAKARI WANTS THE [facility] ERYTHROPROTIEN CBC TYPE CODE TESTS RESULT OUT OF RANGE REFERENCE UNITS LAB L503.6550 26-388 ng/mL Normal FERRITIN 161 Performed By: #### L500.4050, L501.2300, L503.6030, L503.6550 #### [facility] [address] [place], [address] #### L3100.1350 #### [facility] (refer to report for specific site) refer to report for address and phone number ERYTHROPOIETIN Collected: 09/23/2017 Status: F Source: EMERY 12:40 PM [facility] REPOSITORY Order Comment: Reason for Laboratory Test . WANTS THE [facility] PTH PROCRE CBC BAKARI WANTS THE [facility] CMP ERYTHROPROTIEN CBC TYPE CODE TESTS RESULT OUT OF RANGE REFERENCE UNITS LAB L3100.1350 2.6-18.5 mIU/mL Normal ERYTHROP 7.8 364687 Result Comment: [employer] D[employer]I 800 Immunoassay System Performed at: [address] [id number] [employer] Machine Tender: Jason Riojas PhD, Phone: [phone] Performed By: #### L500.4050, L501.5780, L503.4257, L503.6189 #### [facility] [place], [address] #### L3100.1350 #### [facility] (refer to report for specific site) refer to report for address and phone number CBC W/DIFF, AUTOMATED Collected: 09/23/2017 Status: F Source: EMERY 12:40 PM [facility] REPOSITORY Order Comment: Reason for Laboratory Test . WANTS THE [facility] PTH PROCRE CBC BAKARI WANTS THE [facility] CMP ERYTHROPROTIEN CBC TYPE CODE TESTS RESULT OUT [...] Performed By: #### L100.0100 #### [facility] [address] [facility] [place], [address] OPERATIVE REPORT Observed: 07/27/2017 Status: F Source: EMERY 10:46 AM [facility] REPOSITORY [facility] Medical Records Department [address] [place] [address] Operative Report 07/27/17 1039 MR#: [id number] Acct: [id number] Name: JIMENEZ GANDARA Rep #: [id number] : 1945 72 From: Carlos Manuel Sorto MD PCP: Zachary JOSEPH,Sy Estrella Status: REG [facility] Location: [place] [address] Problem List (1) Anemia of chronic renal [...] Sorto MD CC: Carlos Manuel Sorto MD; Sy Sharma MD Signed BEDSIDE GLUCOSE Collected: 07/27/2017 Status: F Source: RENEE 8:24 AM [facility] REPOSITORY TYPE CODE TESTS RESULT OUT OF REFERENCE UNITS RANGE LAB L501.080 70-110 mg/dL High BEDSIDE GLU 122 Result Comment: MANAGEMENT OF PATIENT CARE PER NURSING PROTOCOL Performed By: #### L501.080 #### [facility] Point of Care [address] [place] [address] EGD ([facility]) Observed: 07/27/2017 Status: F Source: RENEE 12:00 AM [facility] REPOSITORY Patient: JIMENEZ GANDARA : 1945 (72/M) Acct Num: [id number] Phys: Noreen JOSEPH,Carlos Manuel Unit Num: [id number] Loc: EN Specimen: [id number] Received: 07/27/17 - 1130 Spec Type: EGD BIOPSY TISSUES TISSUES: A. Gastric mucous membrane B. Esophageal mucous membrane C. COLON BIOPSY D. Transverse colon E. SPLENIC FLEXURE F. Rectum, NOS COMMENT A. The results of immunohistochemistry for Helicobacter pylori will be reported separately ([id number]). B. Glandular epithelium is not represented in [...] one cassette. / SJ:rg 07/27/17 TC:5 CPT: 26130 x6 HEADER OPERATION: EGD and colonoscopy PRE-OP [...] Performed By: #### PEGD #### [facility] [address] [place] [address]. [place], [place], [id number] IMMUNOHISTOCHEMISTRY Observed: 07/27/2017 Status: F Source: EMERY 12:00 [facility] REPOSITORY Patient: JIMENEZ GANDARA : 1945 (72/M) Acct Num: [id number] Phys: Carlos Manuel Sorto MD Unit Num: [id number] Loc: EN Specimen: [id number] Received: 07/28/17 - 1303 Spec Type: IMMUNO TISSUES TISSUES: A. Stomach, NOS SPECIMEN INFORMATION: Tissue Source: A Antral biopsy Clinical Info: Anemia Specimen Number: [id number] CPT code: 28724 METHODOLOGY: Deparaffinized sections of prefer/formalin-fixed tissue or [...] their performance characteristics determined by [facility]. They may not have been cleared or approved by the U.S. Food and Drug Administration. The FDA has determined that such clearance or approval is not necessary. INTERPRETATION: A. Antral biopsy: Negative for Helicobacter pylori organisms. AM:taniya 07/29/17 PHYSICIAN AND INSTITUTION [address] [address] Signed Matt Napoles 07/29/17 <signature on file> Performed By: #### PIMM #### [facility] [address] [place], [place], [address] CBC Collected: 07/22/2017 Status: F Source: COS COB 11:32 AM [facility] REPOSITORY TYPE CODE TESTS RESULT OUT OF [...] <0.01 Performed By: #### CBC, CMP #### [facility] [address] [place], [place] [address] COMP METABOLIC PANEL Collected: 07/22/2017 Status: F Source: COS COB 11:32 AM [facility] REPOSITORY TYPE CODE TESTS RESULT OUT OF REFERENCE UNITS RANGE LAB TP 6.3-8.0 g/dL Protein, Total 6.9 LAB ALB 3.9-4.9 g/dL Albumin 3.9 LAB CA 8.5-10.2 mg/dL Calcium, Total 9.2 LAB TBIL 0.2-1.3 mg/dL Bilirubin, Total 0.3 LAB ALKP 36-108 U/L Alkaline Phosphatase 54 LAB AST 14-40 U/L AST 16 LAB GLU 74-99 mg/dL Glucose High 199 Result Comment: The [place] [employer] Association (ADA) provides guidance for cutoff [...] Standards of Medical Care in Diabetes 2016, [place] [employer]. Diabetes Care. 2016.39(Suppl 1). LAB [...] GFR. Performed By: #### CBC, CMP #### [facility] [address] [place] [address] HEPATITIS A AB TOTAL Collected: 07/22/2017 Status: F Source: COS COB 11:32 AM [facility] REPOSITORY TYPE CODE TESTS RESULT OUT OF RANGE REFERENCE UNITS LAB AHAVT Negative Abnormal Hepatitis A Ab Positive Alert Total Performed By: #### AHAVT, TOXG #### [facility] [address] [place], [place] [address] #### TCAIGG #### [address] [address] [phone] TOXOPLASMA IGG AB Collected: 07/22/2017 Status: F Source: COS COB 11:32 [facility] REPOSITORY TYPE CODE TESTS RESULT OUT OF [...] given specimen determined with assays from different [facility] acturers can vary due to differences in assay methods and reagent specificity. Performed By: #### AHAVT, TOXG #### [facility] [address] [place], [place] [address] #### TCAIGG #### [facility] [address] [place] [address] [phone] TRYPAN CRUZI IGG Collected: 07/22/2017 Status: F Source: COS COB 11:[address] [place] [address] REPOSITORY TYPE CODE TESTS RESULT OUT OF [...] is sufficiently sensitive and specific. Performed by [employer], [address] [place] [address] [email or web address], Saleem Blackman MD, Lab. Director Performed By: #### AHAVT, TOXG #### [facility] [address] [place], [place] [address] #### TCAIGG #### [facility] [address] [place] [address] [phone] PROGRESS Observed: 07/22/2017 Status: COMPLETED Source: COS COB 10:05 AM [facility] REPOSITORY HNO ID: [id number] Author: Nancy Olguin Service: (none) Author Type: [...] a 72 year old man, originally from [place] [place] who is presenting for ID clearance in anticipation of a kidney transplant. He has a history of CKD stage IV in the setting of diabetic nephropathy and uncontrolled HTN and denies a history of recurrent infections. He feels quite well currently and has not experienced any fevers, chills, night sweats, cough, sputum production, abdominal pain or diarrhea. He was born in [place] and moved to the in 1978. He denies a history of malaria or other infections while living there. He believes that he had a negative PPD prior to moving to the [place] and denies a history of known exposure to T.B. He has never been homeless or incarcerated. 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 CKD stage IV in [...] 22, 2017 TIME: 10:05 AM PAGER/CONTACT #: [phone] ID STAFF NOTE: Patient is sent at [...] MD CNOV Observed: 07/22/2017 Status: COMPLETED Source: COS COB 9:45 AM [facility] REPOSITORY Office Visit (INFDMN) JIMENEZ GANDARA ([id number]) 1945 M [facility] Date Time Provider Department 07/22/17 9:45 AM [...] a 72 year old man, originally from [facility] who is presenting for ID clearance in anticipation of a kidney transplant. He has a history of CKD stage IV in the setting of diabetic nephropathy and uncontrolled HTN and denies a history of recurrent infections. He feels quite well currently and has not experienced any fevers, chills, night sweats, cough, sputum production, abdominal pain or diarrhea. He was born in [facility] and moved to the in 1978. He denies a history of malaria or other infections while living there. He believes that he had a negative PPD prior to moving to the and denies a history of known exposure to T.B. He has never been homeless or incarcerated. 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 CKD stage IV in [...] 22, 2017 TIME: 10:05 AM PAGER/CONTACT #: [phone] ID STAFF NOTE: Patient is sent at [...] A/B Lot #: [id number] Expiration Date: 10/13/19 [facility] # [id number] MGF Name [facility] Dose: 1mL Route: Intramuscular Site: Left Arm Patient tolerated injection well. Tressa Mann Ma Patient has been identified. Allergies verified. Patient here for an injection of shingrix Lot #: [id number] Expiration Date: 10/14/19 [facility] # [id number] MGF Name Berrybenka Dose: 0.5mL Route: Intramuscular Site: Left Arm Patient tolerated injection well. Tressa Mann Ma Referring Provider: LUIZ PEREZ [[id number]] Allergies As of Date: 07/22/2017 Noted Allergy Reaction DUST 12/11/2004 Date Reviewed: 07/22/2017 Reviewed by: Samm (Ex Phys) Dennis - Fully Assessed Reason for Visit: New Patient Evaluation [154] Primary Visit Diagnosis:CKD (chronic kidney disease) stage 4, GFR 15-29 ml/min (HCC) [N18.4] Other Visit Diagnoses:Need for vaccination [Z23] Organ transplant candidate [Z76.82] Pre-transplant evaluation for ESRD (end stage renal disease) [Z01.818] Need for vaccination with Twinrix [Z23] Order(s):ZOSTER VACC RECOMBINANT,IM [[id number]] Order #: [id number] HEPA/HEPB VACCINE ADULT IM [[id number]] Order #: [id number] HEP A AB TOTAL [SQAHAVT] Order #: [id number] FUTURE TRYPANOSOMA CRUZI AB, IGG [SQTCAIGG] Order #: [id number] FUTURE TOXOPLASMOSIS IGG AB [SQTOXG] Order #: [id number] FUTURE Prescriptions as of 07/22/2017 Sig: AMLODIPINE [...] today Visit Notes: >> Tressa Mann Mariluz Katie Jul 22, 2017 11:22 AM Status: Signed Patient has been identified. Allergies verified. Patient here for an injection of HEPATITIS A/B Lot #: [id number] Expiration Date: 10/13/19 [facility] # [id number] MGF Name gsk Dose: 1mL Route: Intramuscular Site: Left Arm Patient tolerated injection well. Tressa Mann Mariluz Patient has been identified. Allergies verified. Patient here for an injection of shingrix Lot #: [id number] Expiration Date: 10/14/19 [facility] # [id number] MGF Name gsk Dose: 0.5mL Route: Intramuscular Site: Left Arm Patient tolerated injection well. Tressa Mann Mariluz Follow-up and Disposition History Recorded Encounter Status:Closed by NANCY OLGUIN MD on 07/23/17 PROGRESS Observed: 07/16/2017 Status: COMPLETED Source: COS COB 12:48 PM [facility] REPOSITORY O ID: [id number] Author: Eloise Saha (Rn) NORMA Grace Service: (none) Author Type: Registered Nurse Type: Progress Notes Filed: 07/16/2017 12:49 PM Note Text: Patient was evaluated for a kidney transplant on 06/28/17. Pre-Transplant evaluation notes and lab results were faxed to the referring manufacturing assembler Dr. Mary Mix at [phone]. Eloise Bruce, RN, BSN Pre- Kidney and Pancreas Blueprint Trimmer CBC-COMPLETE BLOOD CNT Collected: 07/13/2017 Status: F Source: [place]EN[place] NO DIFF 1:34 PM [facility] REPOSITORY TYPE CODE TESTS RESULT OUT OF [...] Performed By: #### L100.0500 #### [facility] [address] [place], [address] RENAL PROFILE Collected: 07/13/2017 Status: F Source: EMERY 1:34 PM [facility] REPOSITORY TYPE CODE TESTS RESULT OUT OF [...] Performed By: #### L500.3600 #### [facility] [address] [place], [address] PTHIN Collected: 07/13/2017 Status: F Source: RENEE 1:34 PM [facility] REPOSITORY TYPE CODE TESTS RESULT OUT OF RANGE REFERENCE UNITS LAB L509.1000 18.4-80.1 pg/mL High PTHIN 133.2 Result Comment: Please Note: PTH INTACT METHOD AND REFERENCE RANGE CHANGE Effective 03/31/2017. Performed By: #### L509.1000 #### [facility] [address] [place], [address] VITAMIN D,25 HYDROXY Collected: 07/13/2017 Status: F Source: RENEE 1:34 PM [facility] REPOSITORY TYPE CODE TESTS RESULT OUT OF RANGE REFERENCE UNITS LAB L506.1000 29.95-100.01 ng/mL Normal Vitamin D 45.2 25-OH Result Comment: Vitamin D 25(OH) Status Range Deficiency <20 ng/mL (50nmol/L) Insuffciency 20 - 30 ng/mL (50 - 75 nmol/L) Sufficiency 30 - 100 ng/mL (75 - 250 nmol/L) Toxicity >100 ng/mL (>250 nmol/L) Performed By: #### L506.1000 #### [facility] [address] [place], [address] SURGERY VISIT REPORT Observed: 07/08/2017 Status: F Source: RENEE 4:23 PM [facility] REPOSITORY [facility] [address] [place] [address] OFFICE VISIT Date of Service: 07/08/17 MR#: [id number] Acct: [id number] Name: JIMENEZ GANDARA Rep #: [id number] : 1945 Provider: Carlos Manuel Sorto MD Age/Sex: 72/M Location: [facility] Status: Signed Intake Vital Signs07/08/17 Height 5 ft 8 in 07/08/17 Weight: 215 lb Intake Visit Reasons: Schedule for Cscope Chief Complaint: Anemia Rand Butter Required: No Is patient in pain?: No [...] mg PO DAILY 06/23/17 [History Confirmed 07/08/17] [facility] Medical History Chronic kidney disease, stage IV (severe) (Chronic) 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) DM2 (diabetes mellitus, type 2) (Chronic) Hypertensive urgency (Acute) Hypertensive urgency (Acute) ARF (acute renal failure) (Acute) HTN (hypertension) (Chronic) Pre-syncope (Acute) Anemia (Acute) Hyperlipidemia (Acute) Surgical History No history of previous surgery (Acute) [place] teeth removed (Acute) Family History Father Pneumonia Mother CVA (cerebral vascular accident) Social History Smoking Status: Former smoker how long ago did patient quit smokin, 0.5pk/day second hand exposure: Yes alcohol intake: current alcohol intake frequency: a few times a month substance use type: does not use HPI HPI HPI: PREMNAUTH KALIKASINGH, is a 72 M who presents to [...] occasionally has heartburn type symptoms treated with tuuw-cms-dnxtqvu medicine. He has been placed on supplemental [...] developed Nutritional Appearance: overweight Orientation: awake, alert [facility] Head: normal to inspection Eyes General: [...] surgical care Cc: Dr. Sharma and Dr. Dominugez Sorto M.D., F.A.C.S. Orders Orders: Coding Level of Care Code Off vis,new,level 3 Diagnoses Chronic kidney disease, stage IV (severe) N18.4 Anemia, unspecified type D64.9 Anemia type: unspecified type 07/08/17 1623 <Electronically signed by Carlos Manuel Sorto MD> Date Carlos Manuel Sorto MD Cosigner Signature: Date (if applicable) CC: Mary Mix DO; Sy Sharma MD ONCOLOGY VISIT REPORT Observed: 06/30/2017 Status: F Source: EMERY 1:51 PM [facility] REPOSITORY [facility] [address] [place] [address] 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 Though he is of [place] ancestry he himself has never traveled to [...] Sy Sharma Referring Provider: Sy Sharma 06/30/17 7991 <Electronically signed by Shania Hanks MD> Date Shania Hanks MD Cosigner Signature: Date (if applicable) CC: yS Sharma MD [place] CONFIRM ABO/RH Collected: 06/28/2017 Status: F Source: [facility] USE 4:25 PM [facility] REPOSITORY TYPE CODE TESTS RESULT OUT OF REFERENCE UNITS RANGE LAB %ABR A ABO/RH(D) NEGATIVE Performed By: #### TRCABO #### [facility] [address] [place], [place] [address] PROGRESS Observed: 06/28/2017 Status: COMPLETED Source: COS COB 4:14 PM [facility] REPOSITORY O ID: [id number] Author: Ela Armstrong (Sw) Service: (none) Author Type: Mat Making Machine Tender Type: Progress Notes Filed: 06/28/2017 4:28 PM [...] Jimenez Gandara is a 72 year old Trin[place] male who lives at [address] [place] [address] in a two story house. [place] is a one [place] [address] from [facility]. Bedroom and bath are on the first floor. Also in the home is Jimenez's , Milena, age 45, and two of their four children. 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 One is at [employer] three days per week , 12 hour shifts. 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 The children are Sophia, age 24, who is a recent graduate as an RN and obtained a position at [employer] working three days, 12 hour shifts; and Nyla, age 19, who attends the [employer]. Also in the home is an [...] excersize three times per week at the [employer] [facility] [employer] and follow a better diet and [...] at times. He is not following any oriental orthodox at this time Level of education: bachelor degree Marital Status; Number of children: four: ages 19, 21, 22, 24 CITIZENSHIP: [place] Citizen SOCIAL NARRATIVE: Jimenez Gandara was born and raised in [facility] by both of his biological parents. He is one of six children. Several sisters in childhood. Jimenez states that [place]. He moved to the [facility] when he was [age] to continue his education. His parents are now . He has three living sisters; ages 77, 75 and 62. One lives in [facility]; one lives in [place] and one lives in [place]. Jimenez states that he obtained a college degree in [facility] at age 26, in electrical engineering. He worked in that field in [facility] for several years and then moved to the [facility] area to attend [employer]. He obtained a bachelor degree there in mechanical engineering in 1980. He then stayed living in the [facility] and worked. He became a [place] citizen. He took a job in [place], [place] in the mid . He Milena in 1990 and the marriage produced four children: Nyla, age 19, who lives at home and attends college; son, Prakash, age 21 who lives on [facility] ; Awilda, age 22 who attends [employer] and lives on campus; and Sophia, age 24 who is an RN and lives at home. The marriage appears stable and supportive. tends to stay very busy and may have feelings about her not staying busy enough EDUCATION/EMPLOYMENT: Jimenez Gandara is currently not employed. He has a bachelor degree in mechanical engineering in 1980. He worked for [employer] for 27 years and retired in 2009. [...] he has my contact information RIMA Arias ASSEMBLER PLASTIC BOAT Kidney and Kidney/Pancreas Transplant Mat Making Machine Tender June 28, 2017 PROTIME Collected: 06/28/2017 Status: F Source: COS COB 4:10 PM [facility] REPOSITORY TYPE CODE TESTS RESULT OUT OF RANGE REFERENCE UNITS LAB PSEC 9.7-13.0 sec PT Sec 10.9 LAB INR 0.9-1.3 PT INR 1.1 Result Comment: Vitamin K Antagonist (VKA) Therapeutic Range: INR 2 to 3 (Target INR of 2.5) Note: For patients treated with VKA drugs, such as warfarin, the [place] [employer] 2012 Guideline recommends [...] to 3.5 (target INR of 3). Alysha GH, et al. Chest 2012, 141:7S-47S Villa RA, et al. [facility] 2017, 70: 252-289 Performed By: #### PT, PTT, PHOS, PTHI, PSATF, CMVG, VZVG2, MEASLG, HREMOP, HIV12C, SYPHGX, EBVG, HCQPCR, INFTBG #### [facility] [address] [place], [place] [address] #### STRSER #### [facility] [address] [place] [address] [phone] APTT Collected: 06/28/2017 Status: F Source: COS COB 4:10 PM [facility] [place] REPOSITORY TYPE CODE TESTS RESULT OUT OF [...] laboratory APTT reagent in use throughout the [facility]. Performed By: #### PT, PTT, PHOS, PTHI, PSATF, CMVG, VZVG2, MEASLG, HREMOP, HIV12C, SYPHGX, EBVG, HCQPCR, INFTBG #### [place] [phone] #### STRSER #### [address] [address] [phone] PHOSPHORUS Collected: 06/28/2017 Status: F Source: COS COB 4:10 PM [facility] REPOSITORY TYPE CODE TESTS RESULT OUT OF REFERENCE UNITS RANGE LAB PHOS 2.7-4.8 mg/dL Phosphorus 4.4 Performed By: #### PT, PTT, PHOS, PTHI, PSATF, CMVG, VZVG2, MEASLG, HREMOP, HIV12C, SYPHGX, EBVG, HCQPCR, INFTBG #### [place] [phone] #### STRSER #### [place] [address] [phone] PTH, INTACT Collected: 06/28/2017 Status: F Source: COS COB 4:10 PM [facility] REPOSITORY TYPE CODE TESTS RESULT OUT OF REFERENCE UNITS RANGE LAB PTH 15-65 pg/mL High PTH, Intact 68 Performed By: #### PT, PTT, PHOS, PTHI, PSATF, CMVG, VZVG2, MEASLG, HREMOP, HIV12C, SYPHGX, EBVG, HCQPCR, INFTBG #### [place] [phone] #### STRSER #### [place] [address] [phone] PSA, FREE Collected: 06/28/2017 Status: F Source: COS COB 4:10 PM [facility] REPOSITORY TYPE CODE TESTS RESULT OUT OF [...] HREMOP, HIV12C, SYPHGX, EBVG, HCQPCR, INFTBG #### [place] [address] [place], [place] [address] #### STRSER #### [address] [address] [phone] CMV IGG ANTIBODY Collected: 06/28/2017 Status: F Source: COS COB 4:10 PM [facility] REPOSITORY TYPE CODE TESTS RESULT OUT OF [...] HREMOP, HIV12C, SYPHGX, EBVG, HCQPCR, INFTBG #### [address] [address] #### STRSER #### [address] [address] [phone] VARICELLA ZOSTER IGG Collected: 06/28/2017 Status: F Source: COS COB 4:10 PM [facility] REPOSITORY TYPE CODE TESTS RESULT OUT OF [...] HREMOP, HIV12C, SYPHGX, EBVG, HCQPCR, INFTBG #### [place] [address] [place] [phone] #### STRSER #### [address] [address] [phone] MEASLES IGG ANTIBODY Collected: 06/28/2017 Status: F Source: COS COB 4:10 PM [facility] REPOSITORY TYPE CODE TESTS RESULT OUT OF [...] HREMOP, HIV12C, SYPHGX, EBVG, HCQPCR, INFTBG #### [place] [address] #### STRSER #### [address] [address] [phone] HEPATITIS REMOTE PANEL Collected: 06/28/2017 Status: F Source: COS COB 4:10 PM [facility] REPOSITORY TYPE CODE TESTS RESULT OUT OF REFERENCE UNITS RANGE LAB AHBCOT Negative Hep B Core Ab,Total Negative LAB AHCV Negative Hepatitis C Ab Negative IA LAB HBSAGR Negative HBsAg Negative LAB AHBSAG Negative HepB Surface Ab,Qual Negative Result Comment: NEGATIVE Performed By: #### PT, PTT, PHOS, PTHI, PSATF, CMVG, VZVG2, MEASLG, HREMOP, HIV12C, SYPHGX, EBVG, HCQPCR, INFTBG #### [place] [address] #### STRSER #### [facility] [address] [place] [address] [phone] HIV 12 COMBO (AG/AB) Collected: 06/28/2017 Status: F Source: COS COB 4:10 PM [facility] REPOSITORY TYPE CODE TESTS RESULT OUT OF REFERENCE UNITS RANGE LAB HVAGAB Non Reactive HIV Non Reactive 12 Ag/Ab Result Comment: (NOTE) HIV Information: [place] Rev. Code 3701.243(E): This information has been [...] SYPHGX, EBVG, HCQPCR, INFTBG #### [facility] [address] [place] [phone] #### STRSER #### [address] [address] [phone] SYPHILIS IGG WITH Collected: 06/28/2017 Status: F Source: [facility] 4:10 PM [facility] REPOSITORY TYPE CODE TESTS RESULT OUT OF [...] SYPHGX, EBVG, HCQPCR, INFTBG #### [facility] [address] [place] [address] #### STRSER #### [address] [address] [phone] EBV IGG ANTIBODY Collected: 06/28/2017 Status: F Source: COS COB 4:10 PM [facility] REPOSITORY TYPE CODE TESTS RESULT OUT OF [...] HREMOP, HIV12C, SYPHGX, EBVG, HCQPCR, INFTBG #### [place] [address] #### STRSER #### [address] [address] [phone] HEPATITIS C RNA Collected: 06/28/2017 Status: F Source: COS COB 4:10 [facility] REPOSITORY TYPE CODE TESTS RESULT OUT OF REFERENCE UNITS RANGE LAB HCQPCR IU/mL Hepatitis C RNA HCV RNA not detected by PCR. Result Comment: Reference Range: Negative for HCV RNA The Linear Range of this assay is 15 IU/mL to 100,000,000 IU/mL. Performed By: #### PT, PTT, PHOS, PTHI, PSATF, CMVG, VZVG2, MEASLG, HREMOP, HIV12C, SYPHGX, EBVG, HCQPCR, INFTBG #### [place] [address] [place] [address] #### STRSER #### [address] [address] [phone] TB BY QUANTIFERON Collected: 06/28/2017 Status: F Source: COS COB 4:10 PM [facility] REPOSITORY TYPE CODE TESTS RESULT OUT OF [...] SYPHGX, EBVG, HCQPCR, INFTBG #### [facility] [address] [place] [address] #### STRSER #### [facility] [address] [place] [address] [phone] STRONGYLOIDE IGG SER Collected: 06/28/2017 Status: F Source: COS COB 4:10 PM [facility] REPOSITORY TYPE CODE TESTS RESULT OUT OF REFERENCE UNITS RANGE LAB STRGS <=0.99 IV Strongyloide IgG Ser 0.56 Result Comment: (NOTE) INTERPRETIVE INFORMATION: Strongyloides Ab, IgG by SKYLER EFFECTIVE 08/24/2016 REFERENCE INTERVAL CHANGE Due to kit teradata developer reagent validation failure, an alternate kit has been validated and implemented by [employer]. This test kit detects IgG antibody to Strongyloides ratti somatic larval antigens. The following Reference Interval applies to this result: 0.99 IV or less....... Negative - No significant level of Strongyloides IgG antibody detected. 1.00 IV or greater ... Positive - IgG antibodies to Strongyloides detected, which may suggest current or past infection. Performed by [facility], [address] [place] [address] [email or web address], Saleem Blackman MD, Lab. Director Performed By: #### PT, PTT, PHOS, PTHI, PSATF, CMVG, VZVG2, MEASLG, HREMOP, HIV12C, SYPHGX, EBVG, HCQPCR, INFTBG #### [facility] [address] [place], [place] [address] #### STRSER #### [address] [address] [phone] CBC AND DIFFERENTIAL Collected: 06/28/2017 Status: F Source: COS COB 4:10 PM [facility] REPOSITORY TYPE CODE TESTS RESULT OUT OF [...] k/uL Abs Lymph 2.14 LAB AMONO % Bradley% 6.7 LAB AAMONO <0.87 k/uL Abs Bradley 0.53 LAB AEOS % Eosin% 6.1 LAB AAEOS <0.46 k/uL Abs High Eosin 0.48 LAB ABASO % Baso% 0.5 LAB AABASO <0.11 k/uL Abs Baso 0.04 LAB AUNRBC 0 /100 WBC NRBCs 0.0 LAB ABNRBC <0.01 k/uL Absolute nRBC <0.01 LAB DTYP DTYPE Auto Diff Performed By: #### CBCDIF, CMP, LIPB, HBA1C #### [facility] [address] [place], [place] [address] COMP METABOLIC PANEL Collected: 06/28/2017 Status: F Source: COS COB 4:10 PM [facility] REPOSITORY TYPE CODE TESTS RESULT OUT OF REFERENCE UNITS RANGE LAB TP 6.3-8.0 g/dL Protein, Total 7.9 LAB ALB 3.9-4.9 g/dL Albumin 4.2 LAB CA 8.5-10.2 mg/dL Calcium, Total 9.6 LAB TBIL 0.2-1.3 mg/dL Bilirubin, Total 0.3 LAB ALKP 36-108 U/L Alkaline Phosphatase 65 LAB AST 14-40 U/L AST 22 LAB GLU 74-99 mg/dL Glucose High 161 Result Comment: The [place] Diabetes Association (ADA) provides guidance for cutoff [...] Standards of Medical Care in Diabetes 2016, [place] Diabetes Association. Diabetes Care. 2016.39(Suppl 1). LAB [...] CBCDIF, CMP, LIPB, HBA1C #### [facility] [address] [place] [phone] LIPID PANEL, BASIC Collected: 06/28/2017 Status: F Source: COS COB 4:10 PM [facility] REPOSITORY TYPE CODE TESTS RESULT [...] Desk Reference: National Heart, Lung, and Blood [place]. National Institutes of Health. 2001: NIH Publication No. 01-3305. 2. An International Atherosclerosis Society position paper: global recommendations for the management of dyslipidemia: executive summary, Atherosclerosis. 2014: 232(2):410-413. Performed By: #### CBCDIF, CMP, LIPB, HBA1C #### [facility] [address] [place], [place] [address] HEMOGLOBIN A1C Collected: 06/28/2017 Status: F Source: COS COB 4:10 PM [facility] REPOSITORY TYPE CODE TESTS RESULT OUT OF REFERENCE UNITS RANGE LAB HGBA1C 4.3-5.6 % High Hemoglobin A1c 7.1 LAB HBA0 mg/dL Est. Average Glucose 157 Result Comment: eAG: (Estimated average glucose) is a calculated value from HgbA1c and is small business sales representative of the average blood glucose level in the last 2-3 month period. Performed By: #### CBCDIF, CMP, LIPB, HBA1C #### [facility] [address] [place], [place] [phone] TYPE AND SCREEN Collected: 06/28/2017 Status: F Source: COS COB 4:10 [facility] TYPE CODE TESTS RESULT OUT OF REFERENCE UNITS RANGE LAB %ABR A ABO/RH(D) NEGATIVE LAB % Antibody NEG Screen Performed By: #### TSCR #### [facility] [place], [place] [address] CNOV Observed: 06/28/2017 Status: COMPLETED Source: COS COB 4:00 PM [facility] REPOSITORY Office Visit (TXCTGL) JIMENEZ GANDARA ([id number]) 1945 M TRN Date Time Provider Department 06/28/17 4:00 PM UROLOGY [facility] TXCTGL During your visit today, we recorded the following information about you: Temperature Pulse Blood pressure Weight 98.1 degrees 69/minute 182/80 98 kg Height 1.727 m Brandon Howard MD 06/28/2017 12:31 PM Signed [facility] [place] [facility] Transplant Evaluation CC: Patient is a 72 year old male here for transplant candidacy evaluation. Reason for visit: here for evaluation to be a Kidney Transplant recipient. Referred by: Mary Mix DO ([facility]) [address] [address] I will communicate with the referring provider by letter and/or shared electronic medical record. 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 Preemptive SCr 3.2mg/dL eGFR 20ml/min. Denies UTI/Pyelo, stones, hematuria, tb or surgery. No AR, CVA, arrythmia. PAOD (TIA non-embolic, CVA non-embolic, [...] 04/06/2017 The patient exercised according to the DAYAN for 4:00 mins, achieving a work level [...] vs.DD options and wait list ?b. SCD, INSPECTOR SEMICONDUCTOR WAFER and DCD kidneys ?c. CDC high risk [...] Howard MD Referring Provider: MARY MIX I [[id number]] Allergies As of Date: 06/28/2017 Noted Allergy [...] 06/28/17 CNOV Observed: 06/28/2017 Status: COMPLETED Source: COS COB 3:15 PM [facility] REPOSITORY Office Visit (TXCTGL) JIMENEZ GANDARA ([id number]) 1945 M TRN Date Time Provider Department 06/28/17 3:15 PM [facility] During your visit today, we recorded the following information about you: Temperature Pulse Blood pressure Weight 98.1 degrees 70/minute 190/82 98 kg Height 1.727 m Luiz Perez MD 06/28/2017 3:19 PM Signed [facility] [place] [facility] Transplant Evaluation CC: Patient is a 72 year old male here for transplant candidacy evaluation. Reason for visit: here for evaluation to be a Kidney Transplant recipient. Referred by: Mary Mix DO ([facility]) [address] [facility] [place] [address] [address] I will communicate with the referring provider [...] 04/06/2017 The patient exercised according to the DAYAN for 4:00 mins, achieving a work level [...] 3. ID consult because [facility] Has right renal exophytic lesion- ?complext cyst- follow US per Urology Patient is a well appearing Trin[place] male- appears younger than his age. Was non compliant with his care in the past but has now become more diligent. Lost 35+ kg, HbA1C improved from 9.7 to 6.9, BP in better control. 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 Has LDs. His GFR declined from 40s in 2014 to 20s in 2017- rapid decline. No [...] Perez MD Referring Provider: MARY MIX I [[id number]] Allergies As of Date: 06/28/2017 Noted Allergy [...] is not on file. Encounter Status:Closed by GABBY RIVERA)LUIZ on 06/28/17 CT ABD/PEL SHRUTHI MA Observed: 06/28/2017 Status: F Source: COS COB 12:51 PM [facility] REPOSITORY * * *Final Report* * * DATE OF EXAM: Jun 28 2017 12:51PM [facility] 0531 - CT ABD/PEL WO IVCON / [...] WITH ULTRASOUND IS RECOMMENDED. ATHEROSCLEROTIC CALCIFICATIONS DETAILED. Crop Pest Control Specialist: PSCB Transcribe Date/Time: Jun 28 2017 1:28P Dictated by : NING TAM MD This examination was interpreted and the report reviewed and electronically signed by: SATISH FAUSTIN MD on Jun 28 2017 2:56PM EST [id number] PROGRESS Observed: 06/28/2017 Status: COMPLETED Source: COS COB 12:47 PM [facility] REPOSITORY HNO ID: [id number] Author: Servando Wolf Service: (none) Author Type: [...] PM PROGRESS Observed: 06/28/2017 Status: COMPLETED Source: COS COB 12:07 PM [facility] REPOSITORY HNO ID: [id number] Author: Brandon Howard Service: (none) Author Type: Physician Type: Progress Notes Filed: 06/28/2017 12:31 PM Note Text: [facility] [place] [facility] Transplant Evaluation CC: Patient is a 72 year old male here for transplant candidacy evaluation. Reason for visit: here for evaluation to be a Kidney Transplant recipient. Referred by: Mary Mix DO ([facility]) [address] [address] I will communicate with the referring provider by letter and/or shared electronic medical record. 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 Preemptive SCr 3.2mg/dL eGFR 20ml/min. Denies UTI/Pyelo, stones, hematuria, tb or surgery. No AR, CVA, arrythmia. PAOD (TIA non-embolic, CVA non-embolic, [...] 04/06/2017 The patient exercised according to the DAYAN for 4:00 mins, achieving a work level [...] vs.DD options and wait list ?b. SCD, INSPECTOR SEMICONDUCTOR WAFER and DCD kidneys ?c. CDC high risk [...] MD PROGRESS Observed: 06/28/2017 Status: COMPLETED Source: COS COB 11:19 AM [facility] REPOSITORY [facility] ID: [id number] Author: Trish Ayers Service: (none) Author Type: [...] June 28, 2017 TIME: 11:19 AM PAGER: [phone] CNCNPATED Observed: 06/28/2017 Status: COMPLETED Source: COS COB 10:15 AM [facility] REPOSITORY Education (DTBAMN) JIMENEZ GANDARA ([id number]) 1945 M [facility] Date Time Provider Department 06/28/17 10:15 AM [...] June 28, 2017 TIME: 11:19 AM PAGER: [phone] Primary Visit Diagnosis:Awaiting organ transplant status [Z76.82] [...] 06/28/17 PROGRESS Observed: 06/28/2017 Status: COMPLETED Source: COS COB 10:03 AM [facility] REPOSITORY [facility] ID: [id number] Author: Moreno Medina (Rn) Mamadou RN Service: (none) Author Type: Registered Nurse Type: [...] further issues Referral/Recommendation: None Moreno Cedillo RN Pre-Blueprint Trimmer PROGRESS Observed: 06/28/2017 Status: COMPLETED Source: COS COB 8:40 AM [facility] REPOSITORY HNO ID: [id number] Author: Luiz Perez Service: (none) Author Type: Physician Type: Progress Notes Filed: 06/28/2017 3:19 PM Note Text: [facility] [place] [facility] Transplant Evaluation CC: Patient is a 72 year old male here for transplant candidacy evaluation. Reason for visit: here for evaluation to be a Kidney Transplant recipient. Referred by: Mary Mix DO ([facility]) [address] [address] I will communicate with the referring provider [...] 04/06/2017 The patient exercised according to the DAYAN for 4:00 mins, achieving a work level [...] per Urology Patient is a well appearing Trin[place] male- appears younger than his age. Was non compliant with his care in the past but has now become more diligent. Lost 35+ kg, HbA1C improved from 9.7 to 6.9, BP in better control. 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 Has LDs. His GFR declined from 40s in 2014 to 20s in 2017- rapid decline. No [...] MD CNOV Observed: 06/28/2017 Status: COMPLETED Source: COS COB 7:45 AM [facility] REPOSITORY Office Visit (TXCTGL) JIMENEZ GANDARA ([id number]) 1945 M [facility] Date Time Provider Department 06/28/17 7:45 AM [...] further issues Referral/Recommendation: None Moreno Cedillo RN Pre-Blueprint Trimmer Referring Provider: MARY MIX I [[id number]] Allergies As of Date: 06/28/2017 Noted Allergy [...] Encounter Status:Closed by MORENO CEDILLO on 06/28/17 FABRIZIOW Observed: 06/28/2017 Status: COMPLETED Source: COS COB 12:00 AM [facility] Social Work (TXCTGL) JIMENEZ GANDARA ([id number]) 1945 M TRN Date Time Provider Department [...] Jimenez Gandara is a 72 year old [place] male who lives at [address] [place] [address] in a two story house. [place] is a one [place] [address] from [facility]. Bedroom and bath are on the first floor. Also in the home is Jimenez's , Milena, age 45, and two of their four children. 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 One is at [employer] three days per week , 12 hour shifts. 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 The children are Sophia, age 24, who is a recent graduate as an RN and obtained a position at [employer] working three days, 12 hour shifts; and Nyla, age 19, who attends the [employer]. Also in the home is an [...] excersize three times per week at the [employer] and follow a better diet and [...] at times. He is not following any oriental orthodox at this time Level of education: bachelor degree Marital Status; Number of children: four: ages 19, 21, 22, 24 CITIZENSHIP: Citizen SOCIAL NARRATIVE: Jimenez Gandara was born and raised in [place] by both of his biological parents. He is one of six children. Several sisters in childhood. Jimenez states that [place] father had. [place] the city [place] he was [age] to continue his education. His parents are now . He has three living sisters; ages 77, 75 and 62. One lives in [place]; one lives in [place] and one lives in [place]. Jimenez states that he obtained a college degree in [place] at age 26, in electrical engineering. He worked in that field in [place] for several years and then moved to the [facility] to attend [employer]. He obtained a bachelor degree there in mechanical engineering in 1980. He then stayed living in the [facility] and worked. He became a [place] citizen. He took a job in [place], [place] in the mid s. He Milena in 1990 and the marriage produced four children: Nyla, age 19, who lives at home and attends college; son, Prakash, age 21 who lives on [facility] ; Awilda, age 22 who attends [employer] and lives on campus; and Sophia, age 24 who is an RN and lives at home. The marriage appears stable and supportive. tends to stay very busy and may have feelings about her not staying busy enough EDUCATION/EMPLOYMENT: Jimenez Gandara is currently not employed. He has a bachelor degree in mechanical engineering in 1980. He worked for [employer] for 27 years and retired in 2009. [...] he has my contact information RIMA Arias ASSEMBLER PLASTIC BOAT Kidney and Kidney/Pancreas Transplant Mat Making Machine Tender June 28, 2017 Allergies As of Date: [...] 06/23/2017 Status: F Source: RENEE 2:33 PM [facility] REPOSITORY Order Comment: Reason for Laboratory Test . TYPE CODE TESTS RESULT OUT OF RANGE REFERENCE UNITS LAB L3100.1350 2.6-18.5 mIU/mL Normal ERYTHROP 7.2 [id number] Result Comment: Siemens Immulite 2000 Immunochemiluminometric assay (ICMA) Performed at: - [facility] [address] [id number] Edge Glue Machine Tender: Jason Riojas PhD, Phone: [phone] Performed By: #### L3100.1350 #### [facility] (refer to report for specific site) refer to report for address and phone number CBC W/DIFF, AUTOMATED Collected: 06/23/2017 Status: F Source: RENEE 2:24 PM [facility] REPOSITORY Order Comment: Reason for Laboratory Test [...] By: #### L100.0100, L100.9950 #### [facility] [address] [place], [place], [address] RETIC PANEL Collected: 06/23/2017 Status: F Source: EMERY 2:24 PM [facility] REPOSITORY Order Comment: Reason for Laboratory Test [...] By: #### L100.0100, L100.9950 #### [facility] [address] [facility] [place], [place], [address] COMPREHENSIVE METABOLIC Collected: 06/23/2017 Status: F Source: [facility] 2:24 PM [facility] REPOSITORY Order Comment: Reason for Laboratory Test [...] #### L500.4050, L503.6030, L503.6550 #### [facility] [address] [facility] [place], [address] IRON+IRON BINDING Collected: 06/23/2017 Status: F Source: [facility] 2:24 PM [facility] REPOSITORY Order Comment: Reason for Laboratory Test . TYPE CODE TESTS RESULT OUT OF RANGE REFERENCE UNITS LAB L503.6075 250-450 ug/dL Low TIBC 228 LAB L503.6150 65-175 ug/dL IRON Normal 85 LAB L503.6250 15.0-55.0 % IRON Normal SATURATION 37.3 Performed By: #### L500.4050, L503.6030, L503.6550 #### [facility] [address] [facility] [place], [address] FERRITIN Collected: 06/23/2017 Status: F Source: EMERY 2:24 PM [facility] REPOSITORY Order Comment: Reason for Laboratory Test . TYPE CODE TESTS RESULT OUT OF RANGE REFERENCE UNITS LAB L503.6550 26-388 ng/mL Normal FERRITIN 177 Performed By: #### L500.4050, L503.6030, L503.6550 #### [facility] [address] [place], [address] ONCOLOGY HISTORY AND Observed: 06/23/2017 Status: F Source: EMERY PHYSICAL 2:06 PM [facility] REPOSITORY [facility] Medical Records Department [address] [facility] [place] [address] History and Physical 06/23/17 1354 MR#: [id number] Acct: [id number] Name: JIMENEZ GANDARA Rep #: [id number] : 1945 72 From: Shania Hanks MD PCP: Zachary JOSEPH,Sy Estrella Status: REG RCR Y Location: OMD - Problem List (1) Anemia of chronic renal failure, stage 4 (severe) Status: Chronic Subjective Date of Service:: 06/23/17 Chief Complaint: Fatigue History of Present Illness: 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 Though he is of [place] ancestry he himself has never traveled to [place] and to his knowledge never exposed or suffered from malaria. Power of Chaperon: No Living Will: Yes Health History: Past [...] [place]) No history of previous surgery (Acute) [place] teeth removed (Acute) Family History (Last Reviewed [...] drinking: Has the patient needed an eye molder fitting in the mornings: Comments: Review of Systems [...] BASIC METABOLIC Collected: 06/18/2017 Status: F Source: EMERY PROFILE (BMP) 11:19 AM [facility] REPOSITORY TYPE CODE TESTS RESULT OUT OF [...] Performed By: #### L500.2500 #### [facility] [place], [address] BASIC METABOLIC Collected: 06/16/2017 Status: F Source: RENEE PROFILE (BMP) 3:29 PM [facility] REPOSITORY TYPE CODE TESTS RESULT OUT OF [...] Performed By: #### L500.2500 #### [facility] [address] [place], [address] CBC W/DIFF, AUTOMATED Collected: 06/15/2017 Status: F Source: EMERY 11:35 AM [facility] REPOSITORY TYPE CODE TESTS RESULT OUT OF [...] Performed By: #### L100.0100 #### [facility] [address] [place], [address] COMPREHENSIVE METABOLIC Collected: 06/15/2017 Status: F Source: [facility] 11:35 AM [facility] REPOSITORY TYPE CODE TESTS RESULT OUT OF [...] By: #### L500.4050, L501.9520 #### [facility] [address] [place], [place], [address] THYROID STIM HORMONE Collected: 06/15/2017 Status: F Source: EMERY (TSH) 11:35 AM [facility] REPOSITORY TYPE CODE TESTS RESULT OUT OF RANGE REFERENCE UNITS LAB L501.9520 0.358-3.74 uIU/mL Normal TSH 2.41 Performed By: #### L500.4050, L501.9520 #### [facility] [address] [place], [address] CNCO Observed: 06/14/2017 Status: COMPLETED Source: COS COB 12:00 AM [facility] REPOSITORY Letter Text Kidney and Pancreas Transplant Program Pre-Transplant Office [address] [place] [address], [address] [address] , ext. [phone] June 14, 2017 Dear Mr. Jimenez Gandara, Thank you for choosing [facility] for your transplant care. Please see [...] marked items faxed to our office at [phone]. __X___ Colonoscopy (with pathology results if applicable) [...] will see the following transplant team members: Blueprint Trimmer Transplant Physician(s) Transplant Surgeon Mat Making Machine Tender Dye Jig Operator Developer Designer We request that you bring the following [...] will need to be scheduled at a [facility] or main [place]. Please be advised that we cannot make a determination regarding placing you on the [facility] and [facility] for Organ Sharing [...] rescheduling your evaluation. Please contact us at [phone] or toll-free at , ext. [phone] if you have any questions or if you need to cancel and reschedule your upcoming evaluation appointments. Again, thank you for choosing [facility] for your transplant care. We look forward to assisting you through the kidney transplant evaluation process. Sincerely, The Kidney and Pancreas Transplant Program CC: Dr.Christine Mix PROGRESS Observed: 05/24/2017 Status: COMPLETED Source: COS COB 10:38 AM [facility] REPOSITORY HNO ID: [id number] Author: Martina (Rn) NORMA Butler Service: (none) [...] Martina Butler RN BSN Kidney AND Pancreas Blueprint Trimmer CBC-COMPLETE BLOOD CNT Collected: 05/12/2017 Status: F Source: EMERY NO DIFF 11:59 AM [facility] REPOSITORY TYPE CODE TESTS RESULT OUT OF [...] Performed By: #### L100.0500 #### [facility] [address] [place], [place], [address] RENAL PROFILE Collected: 05/12/2017 Status: F Source: EMERY 11:59 AM [facility] REPOSITORY TYPE CODE TESTS RESULT OUT OF [...] Performed By: #### L500.3600 #### [facility] [address] [place], [address] PROTEIN, URINE 24HR Collected: 05/12/2017 Status: C Source: EMERY 11:59 AM [facility] REPOSITORY TYPE CODE TESTS RESULT OUT OF [...] Performed By: #### L500.9000 #### [facility] [address] [place], [address] 24 HR UR CREATININE Collected: 05/12/2017 Status: C Source: RENEE CLEARANCE 11:59 AM [facility] REPOSITORY TYPE CODE TESTS RESULT OUT OF [...] Performed By: #### L500.4507 #### [facility] [address] [place], [address] VITAMIN D,25 HYDROXY Collected: 05/12/2017 Status: F Source: RENEE 11:59 AM [facility] REPOSITORY TYPE CODE TESTS RESULT OUT OF REFERENCE UNITS RANGE LAB L506.1000 19.95-100.01 ng/mL Low Vitamin D 19.4 25-OH Result Comment: Vitamin D 25(OH) Status Range Deficiency <20 ng/mL (50nmol/L) Insuffciency 20 - 30 ng/mL (50 - 75 nmol/L) Sufficiency 30 - 100 ng/mL (75 - 250 nmol/L) Toxicity >100 ng/mL (>250 nmol/L) Performed By: #### L506.1000 #### [facility] [address] [place], [address] PTHIN Collected: 05/12/2017 Status: F Source: RENEE 11:59 AM [facility] REPOSITORY TYPE CODE TESTS RESULT OUT OF RANGE REFERENCE UNITS LAB L509.1000 18.4-80.1 pg/mL High PTHIN 286.2 Result Comment: Please Note: PTH INTACT METHOD AND REFERENCE RANGE CHANGE Effective 03/31/2017. Performed By: #### L509.1000 #### [facility] [address] [place], [address] ALLERGIES ALLERGIES DATE TYPE / CODE NAME / CODE REACTION SEVERITY SOURCE 04/28/2018 Drug No Known Unknown [facility] Allergy/4160 Allergies/F00 [facility] 53397(SNOMED 3866452(RXNOR Repository CT) M) 12/11/2004 Environ/4201 DUST [facility] 01533(SNOMED [place]) Repository ENCOUNTERS ENCOUNTERS ADMIT/DISCHARGE ACCOUNT ADMITTING ENCOUNTER LOCATION SOURCE NUMBER CLASS 05/04/2018 [id number] [facility] ing:POLAB3 Repository 04/28/2018 [id number] Ambulatory BMSBuilding:[place].[facility] Repository 04/28/[id number] [facility] ing:OMD Repository 04/10/[id number] [facility] ing:LAB.FUTUR Repository E 03/31/2018 [id number] Ambulatory BMSBuilding:[place] MS.CF.[facility] Repository 03/14/[id number] [facility] ing:POLAB3 Repository 03/14/2018 [id number] [facility] ing:LAB.FUTUR Repository E 03/10/2018 [id number] Ambulatory BMSBuilding:[place] MS.CF.[facility] Repository 02/17/2018 [id number] Ambulatory BMSBuilding:[place].CF.[facility] Repository 01/31/2018/02/02/20 [id number] Ambulatory [address] Repository 01/27/2018 [id number] Ambulatory BMSBuilding:B [place].CF.[facility] Repository 01/18/2018 [id number] [facility]POL[facility] Repository 01/06/2018 [id number] Ambulatory BMSBuilding:B [place].[facility] Repository 12/30/2017 [id number] [facility] ing:POLAB3 Repository 12/30/2017 [id number] Ambulatory [facility] Hospital ing:LAB.FUTUR Repository E 12/22/2017 [id number] [facility] ing:POLAB3 Repository 12/16/2017 [id number] Ambulatory BMSBuilding:[place] MS.CF.[facility] Repository 11/30/2017 [id number] [facility] ing:POLAB3 Repository 11/25/2017 [id number] Ambulatory BMSBuilding:[place].CF.[facility] Repository 11/19/2017/11/20/19 [id number] Ambulatory BMSBuilding:[place] [address] [place] [address] Repository 11/18/2017/11/20/19 [id number] [facility] Inpatient [address] Hospital ing:PCURoom: Repository ODD048Tmd: 1 11/18/2017 [id number] [facility] Ambulatory BMSBuilding:B [place] MS.[facility] Repository 11/18/2017 [id number] Ambulatory BMSBuilding:B [place] MS.[facility] Repository 11/03/2017 [id number] Ambulatory BMSBuilding:[place] MS.CF.[facility] Repository 10/20/2017 [id number] Ambulatory BMSBuilding:[place].[facility] Repository 10/12/2017/10/13/19 [id number] Ambulatory BMSBuilding:B [place] 18 MS.[facility] Repository 10/11/2017/10/28/19 [id number] Ambulatory [address] Repository 10/06/2017 [id number] Ambulatory BMSBuilding:[place] MS.CF.[facility] Repository 10/04/2017 [id number] Ambulatory [facility] Hospital[facility] Hospital ing:[facility] Repository 10/04/2017 [id number] Ambulatory BMSBuilding:[place].CF.[facility] Repository 09/29/2017 [id number] Ambulatory BMSBuilding:B [place].[facility] Repository 09/23/2017 [id number] Ambulatory [facility] Hospital[facility] Hospital ing:LAB.FUTUR Repository E 07/27/2017/07/28/19 [id number] Ambulatory [address] HospitalBuild Hospital ing:EN Repository 07/27/2017 [id number] Ambulatory BMSBuilding:B [place].CF.[facility] Repository 07/22/2017/07/28/19 [id number] Ambulatory [address] Repository 07/22/2017 [id number] Ambulatory [facility] Repository 07/22/2017/07/26/19 [id number] Ambulatory [address] Repository 07/22/2017 [id number] Ambulatory [facility] Repository 07/13/2017 [id number] Ambulatory [facility] Hospital[facility] Hospital ing:POLAB3 Repository 07/08/2017/07/09/19 [id number] Ambulatory BMSBuilding:B [place] 18 MS.[facility] Repository 06/30/2017 [id number] Ambulatory BMSBuilding:B [place].CF.[facility] Repository 06/28/2017/06/29/19 [id number] Ambulatory [address] Repository 06/28/2017 [id number] Ambulatory [facility] Repository 06/28/2017/06/30/19 [id number] Ambulatory [address] Repository 06/28/2017 [id number] Ambulatory [facility] Repository 06/28/2017 [id number] Ambulatory [facility] Repository 06/28/2017 [id number] Ambulatory [facility] Repository 06/28/2017 [id number] Ambulatory [facility] Repository 06/28/2017 [id number] Ambulatory [facility] Repository 06/28/2017 [id number] Ambulatory [facility] Repository 06/28/2017/06/29/19 [id number] Ambulatory [address] Repository 06/28/2017 [id number] Ambulatory [facility] Repository 06/23/2017 [id number] Ambulatory BMSBuilding:Yudi [place] MS.O [facility] Repository 06/18/[id number] [facility] ing:POLAB3 Repository 06/17/2017 [id number] Ambulatory BMSBuilding:Yudi [place] MS.[facility] Repository 06/16/2017 [id number] [facility] ing:POLAB3 Repository 06/15/[id number] [facility] ing:POLAB3 Repository 05/12/[id number] [facility] ing:LAB.FUTUR Repository E PAYERS PAYERS ENCOUNTER GUARANTOR PAYER SUBSCRIBER SOURCE 05/04/2018 [place] Primary Insurance:[facility] JOSE [id number] [facility]: [facility] [id number] Number: Repository [address]Vbg: 330 [id number] [phone] () Date:9310-32-99MC [facility] [facility] [place]1986XIESLMHUW, [place] [address]XI: CHECK WEBSITE 05/04/2018 Secondary NOT GIVENUNK Renee Insurance:SELF PAY [facility] Number: Effective Repository Date:2018-05-02 04/28/2018 PREMNAUTH Primary Insurance:[facility] JOSE Duran [id number] [facility]: [facility] 9148-31-73BPKWilliam[place], [place] Number: Repository [address]Iil: 330 [id number] [phone] () Date:3118-33-70FK [address] [address]WJEZRJKFO, [place] [address]TB: CHECK WEBSITE 04/28/2018 Secondary NOT GIVENUNK Renee Insurance:SELF PAY [facility] Number: Effective Repository Date:2018-04-28 04/28/2018 PREMNA[place] Primary Insurance:[facility] JOSE MELO [facility]: [facility] [id number], [place] Number: Repository [address]Lwp: 330 [id number] [phone] () Date:9340-87-64SJ [address] [address]IXTQFIDWM, [place] [address]TQ: CHECK WEBSITE 04/28/2018 Secondary NOT GIVENUNK Willard Insurance:SELF PAY [facility] Number: Effective Repository Date:2017-06-21 04/10/2018 PREMNAUTH Primary Insurance:[facility] JOSE MELO [facility]: [facility] 0365-28-29JAUWilliam[place], [place] Number: Repository [address]Xpt: 330 [id number] [phone] () Date:9417-06-02WH [address] [address]ELRTUOFUL, [place] [address]OV: CHECK WEBSITE 04/10/2018 Secondary NOT GIVENUNK Renee Insurance:SELF PAY [facility] Number: Effective Repository Date:2018-04-10 03/31/2018 PREMNA[place] Primary Insurance:[facility] JOSE MELO [facility] NIDAB: [facility] [id number], [place] Number: Repository [address]Cle: 330 [id number] [phone] () Date:2110-32-76SQ [address] [address]KKHYGGHRF, [place] [address]VC: CHECK WEBSITE 03/31/2018 Secondary NOT GIVENUNK Renee Insurance:SELF PAY [facility] Number: Effective Repository Date:2018-03-31 03/14/2018 PREMNA[place] Primary Insurance:[facility] JOSE ZARATESINGH4111 [facility] NIDAB: [facility] 1063-27-31AALWilliam[place] Number: Repository [address]Aok: 330 [id number] [phone] () Date:1212-38-30WQ [address] [address]OERKGGUZZ, [place] [address]DI: CHECK WEBSITE 03/14/2018 Secondary NOT GIVENUNK [place]ard Insurance:SELF PAY [facility] Number: Effective Repository Date:2017-11-16 03/14/2018 PREMNAUTH Primary NOT GIVENUNK Willard [id number] Insurance:SELF [place]Y [place] Number: Effective Repository [address]Cjg: 330) Date:2018-03-140879 () 03/10/2018 PREMNAUTH Primary Insurance:[facility] JOSE GANDARA4111 [facility]: [facility] 8882-15-19FGUWilliam[place], [place] Number: Repository [address]Msg: 330 [id number] [phone] () Date:1164-12-33JJ [address] [address]IESGQPAZK, [place] [address]QR: CHECK WEBSITE 03/10/2018 Secondary NOT GIVENUNK Renee Insurance:SELF PAY [facility] Number: Effective Repository Date:2018-03-10 02/17/2018 PREMNA[place] Primary Insurance:[facility] JOSE ZARATESINGH4111 [facility] NIDAB: [facility] [id number], [place] Number: Repository [address]Qdh: 330 [id number] [phone] () Date:0893-20-88BZ [address] [address]BFGJWHFTO, [place] [address]CN: CHECK WEBSITE 02/17/2018 Secondary NOT GIVENUNK [place]ard Insurance:SELF PAY [facility] Number: Effective Repository Date:2018-02-17 01/27/2018 PREMNAUTH Primary Insurance:[facility] JOSE GANDARA4111 [facility]B: [facility] 7092-24-72ANSWilliamstown, [place] Number: Repository [address]Htm: 330 [id number] [phone] (HP) Date:5725-42-91YS [address] [address]OSJKZSYKK, [place] [address]AD: CHECK WEBSITE 01/27/2018 Secondary NOT GIVENUNK [place]ard Insurance:SELF PAY [facility] Number: Effective Repository Date:2018-01-27 01/18/2018 PREMNAUTH Primary Insurance:[facility] JOSE GANDARA4111 [facility]: [facility] 5436-65-38GWWWilliam[place], [place] Number: Repository [address]Czo: 330 [id number] [phone] (HP) Date:8018-52-21MT [address] [address]SXDCBOCHZ, [place] [address]VF: CHECK WEBSITE 01/18/2018 Secondary NOT GIVENUNK Renee Insurance:SELF PAY [facility] Number: Effective Repository Date:2018-01-17 01/06/2018 PREMNAUTH Primary Insurance:[facility] JOSE [id number] [facility] PAULETTE: [facility] 3437-49-99OVYWilliam[place], [place] Number: Repository [address]Xld: 330 [id number] [phone] () Date:3067-90-29ER [address] [address]PIUEQBUSV, [place] [address]YW: CHECK WEBSITE 01/06/2018 Secondary NOT GIVENUNK Renee Insurance:SELF PAY [facility] Number: Effective Repository Date:2018-01-06 12/30/2017 PREMNAUTH Primary Insurance:[facility] JOSE [id number] [facility]: [facility] 6530-62-07WGLWilliam[place], [place] Number: Repository [address]Gmu: 330 [id number] [phone] (HP) Date:2219-28-07JM [address] [address]JLRMQVWKW, [place] [address]ZI: CHECK WEBSITE 12/30/2017 Secondary NOT GIVENUNK Renee Insurance:SELF PAY [facility] Number: Effective Repository Date:2017-12-14 12/30/2017 PREMNA[place] Primary Insurance:[facility] JOSE [id number] [facility] NIDAB: [facility] 9094-05-63WMYWilliam[place], [place] Number: Repository [address]Pkx: 330 [id number] [phone] () Date:9602-75-71JN [address] [address]POYISFUQH, [place] [address]JE: CHECK WEBSITE 12/30/2017 Secondary NOT GIVENUNK Renee Insurance:SELF PAY [facility] Number: Effective Repository Date:2017-12-23 12/22/2017 PREMNA[place] Primary Insurance:[facility] JOSE [id number] [facility]B: [facility] 0892-14-16TDQWilliam[place], [place] Number: Repository [address]Lvh: 330 [id number] [phone] () Date:3526-30-32EV [address] [address]MITIDRDSV, [place] [address]BZ: CHECK WEBSITE 12/22/2017 Secondary NOT GIVENUNK [place]ard Insurance:SELF PAY [facility] Number: Effective Repository Date:2017-12-22 12/16/2017 PREMNAUTH Primary Insurance:[facility] JOSE ZARATESINGH4111 [facility] NIDA: [facility] 7707-57-22XTYWilliam[place], [place] Number: Repository [address]Rmo: 330 [id number] [phone] () Date:0979-88-03TF [address] [address]XPPGDCYIR, [place] [address]UM: CHECK WEBSITE 12/16/2017 Secondary NOT GIVENUNK Renee Insurance:SELF PAY [facility] Number: Effective Repository Date:2017-12-16 11/30/2017 PREMNA[place] Primary Insurance:[facility] JOSE [id number] [facility] NIDA: [facility] 5599-77-66CYIWilliam[place], [place] Number: Repository [address]Gwj: 330 [id number] [phone] (HP) Date:8753-66-32JA [address] [address]VJVJFCCNW, [place] [address]KG: CHECK WEBSITE 11/30/2017 Secondary NOT GIVENUNK [place]ard Insurance:SELF PAY [facility] Number: Effective Repository Date:2017-11-29 11/25/2017 PREMNAUTH Primary Insurance:[facility] JOSE GANDARA4111 [facility] 3550-06-08GEYWilliam[place], [place] Number: Repository [address]Nae: 330 [id number] [phone] (HP) Date:0486-84-74KY [address] [address]RYTEPVVKN, [place] [address]EU: CHECK WEBSITE 11/25/2017 Secondary NOT GIVENUNK [place]ard Insurance:SELF PAY [facility] Number: Effective Repository Date:2017-11-25 11/19/2017 PREMNAUTH Primary Insurance:[facility] JOSE GANDARA4111 [facility]: [facility] 2673-56-72MISWilliam[place], [place] Number: Repository [address]Feb: 330 [id number] [phone] () Date:8804-70-38QI [address] [address]NRDOTGLUP, [place] [address]QO: CHECK WEBSITE 11/19/2017 Secondary NOT GIVENUNK [place]ard Insurance:SELF PAY [facility] Number: Effective Repository Date:2017-11-19 11/18/2017 PREMNAUTH Primary Insurance:[facility] JOSE GANDARA4111 [facility]: [facility] 0947-58-60XZPWilliamstown, [place] Number: Repository [address]Nrh: 330 [id number] [phone] (HP) Date:0503-32-06GU [address] [address]FRQLIGNVV, [place] [address]ER: CHECK WEBSITE 11/18/2017 Secondary NOT GIVENUNK [place]ard Insurance:SELF PAY [facility] Number: Effective Repository Date:2017-11-18 11/18/2017 PREMNAUTH Primary Insurance:[facility] JOSE GANDARA4111 [facility] PAULETTE: [facility] 0907-51-25NOUWilliam[place], [place] Number: Repository [address]Myc: 330 [id number] [phone] () Date:9495-63-85XX [address] [address]CBJDTZCXR, [place] [address]NM: CHECK WEBSITE 11/18/2017 Secondary NOT GIVENUNK Renee Insurance:SELF PAY [facility] Number: Effective Repository Date:2017-11-18 11/18/2017 PREMNA[place] Primary Insurance:[facility] JSOE ADAMS11 [facility] NIDA: [facility] 5323-38-16SZKWilliam[place], [place] Number: Repository [address]Fnx: 330 [id number] [phone] () Date:3287-44-81PB [address] [address]RYBWRMAMF, [place] [address]ON: CHECK WEBSITE 11/18/2017 Secondary NOT GIVENUNK [place]ard Insurance:SELF PAY [facility] Number: Effective Repository Date:2017-11-18 11/03/2017 PREMNA[place] Primary Insurance:[facility] JOSE [id number] [facility] PAULETTE: [facility] 3542-45-32SUGWilliam[place], [place] Number: Repository [address]Dtq: 330 [id number] [phone] () Date:2546-80-92WZ [address] [address]JFNEOLTJG, [place] [address]HD: CHECK WEBSITE 11/03/2017 Secondary NOT GIVENUNK Renee Insurance:SELF PAY [facility] Number: Effective Repository Date:2017-11-03 10/20/2017 PREM[place] Primary Insurance:[facility] JOSE [id number] [facility] PAULETTE: [facility] 9441-79-58WYUWilliamstown, [place] Number: Repository [address]Lhv: 330 [id number] [phone] (HP) Date:2709-94-73DU [address] [address]MLHAOZAZR, [place] [address]ZW: CHECK WEBSITE 10/20/2017 Secondary NOT GIVENUNK [place]ard Insurance:SELF PAY [facility] Number: Effective Repository Date:2017-10-20 10/12/2017 PREMNAUTH Primary Insurance:[facility] JOSE MELO [facility]: [facility] 6514-41-90BJGWilliamstown, [place] Number: Repository [address]Mwo: 330 [id number] [phone] () Date:0499-93-93GS [address] [address]JBSJTCZMY, [place] [address]WQ: CHECK WEBSITE 10/12/2017 Secondary NOT GIVENUNK [place] Insurance:SELF PAY [facility] Number: Effective Repository Date:2017-10-12 10/06/2017 PREMNA[place] Primary Insurance:[facility] JOSE MELO [facility]: [facility] 3973-57-43WXMWilliam[place], [place] Number: Repository [address]Grr: 330 [id number] [phone] () Date:7757-63-43HR [address] [address]AGHTATXIJ, [place] [address]LP: CHECK WEBSITE 10/06/2017 Secondary NOT GIVENUNK [place]ard Insurance:SELF PAY [facility] Number: Effective Repository Date:2017-10-06 10/04/2017 PREMNAUTH Primary Insurance:[facility] JOSE MELO [facility]: [facility] 3607-00-02UECWilliam[place], [place] Number: Repository [address]Ust: 330 [id number] [phone] () Date:2469-72-22EE [address] [address]OQTXEMMZW, [place] [address]MY: CHECK WEBSITE 10/04/2017 Secondary NOT GIVENUNK Renee Insurance:SELF PAY [facility] Number: Effective Repository Date:2017-09-29 10/04/2017 PREMNAUTH Primary Insurance:[facility] JOSE ADAMS11 [facility] PAULETTE: [facility] 2564-45-85KAYWilliam[place], [place] Number: Repository [address]Wss: 330 [id number] [phone] (HP) Date:1757-95-81RH [address] [address]OPXWXVFZV, [place] [address]YM: CHECK WEBSITE 10/04/2017 Secondary NOT GIVENUNK Renee Insurance:SELF PAY [facility] Number: Effective Repository Date:2017-10-04 09/29/2017 PREM[place] Primary Insurance:[facility] JOSE MELO [facility]: [facility] 1494-69-76YBWWilliam[place], [place] Number: Repository [address]Gbl: 330 [id number] [phone] () Date:3529-73-51FM [address] [address]ONJTXDQMW, [place] [address]KX: CHECK WEBSITE 09/29/2017 Secondary NOT GIVENUNK Renee Insurance:SELF PAY [facility] Number: Effective Repository Date:2017-09-29 09/23/2017 PREMNA[place] Primary Insurance:[facility] JOSE MELO [facility] PAULETTE: [facility] 8291-73-31FBUWilliamstown, [place] Number: Repository [address]Zty: [id number] [phone]~330 Date:0029-71-25TG [address] () 10367WGFPLGZRB, [place] [address]ZM: CHECK WEBSITE 09/23/2017 Secondary NOT GIVENUNK [place]ard Insurance:SELF PAY [facility] Number: Effective Repository Date:2017-07-19 07/27/2017 PREM[place] Primary Insurance:[facility] JOSE ADAMS11 [facility] PAULETTE: [facility] 9603-39-83XTZWilliam[place], [place] Number: Repository [address]Ugb: [id number] [phone] Date:9610-21-09BQ [address] () [address]66OGZCWXDHZ, [place] [address]RU: CHECK WEBSITE 07/27/2017 Secondary NOT GIVENUNK [place] Insurance:SELF PAY [facility] Number: Effective Repository Date:2017-07-08 07/27/2017 PRE[place] Primary Insurance:[facility] JOSE [id number] [facility]B: [facility] 5918-15-71LMRWilliam[place], [place] Number: Repository [address]Eii: [id number] [phone] Date:5411-41-46XI [address] () [address]MPWMJBBWY, [place] [address]MM: CHECK WEBSITE 07/27/2017 Secondary NOT GIVENUNK [place]ard Insurance:SELF PAY [facility] Number: Effective Repository Date:2017-07-27 07/13/2017 PRE[place] Primary Insurance:[facility] JOSE [id number] [facility]B: [facility] 5792-84-98DGNWilliam[place], [place] Number: Repository [address]Qzj: [id number] [phone] Date:0943-80-76PS [address] () 80820YSWKRZICQ, [place] [address]GX: CHECK WEBSITE 07/13/2017 Secondary NOT GIVENUNK Renee Insurance:SELF PAY [facility] Number: Effective Repository Date:2017-05-31 07/08/2017 PREM[place] Primary Insurance:[facility] JOSE ZARATESINGH4111 [facility] NIDAB: [facility] 8154-40-72XYBWilliam[place], [place] Number: Repository [address]Yqe: [id number] [phone] Date:3840-97-86WA [address] () 20413ZGSCAPDSO, [place] [address]GW: CHECK WEBSITE 07/08/2017 Secondary NOT GIVENUNK [place] Insurance:SELF PAY [facility] Number: Effective Repository Date:2017-07-08 06/30/2017 PREM[place] Primary Insurance:[facility] JOSE GANDARA4111 [facility] PAULETTE: [facility] 3594-55-70SRWWilliam[place], [place] Number: Repository [address]Mez: [id number] [phone] Date:4496-04-48BP [address] () 23884MSTBUPKEA, [place] [address]UL: CHECK WEBSITE 06/30/2017 Secondary NOT GIVENUNK [place]ard Insurance:SELF PAY [facility] Number: Effective Repository Date:2017-06-30 06/23/2017 PRE[place] Primary Insurance:[facility] JOSE ADAMS11 [facility]: [facility] 2938-57-70IHNWilliam[place], [place] Number: Repository [address]Dqm: [id number] [phone] Date:7151-67-24QJ [address] () [address]TRCQBXMFP, [place] [address]CA: CHECK WEBSITE 06/23/2017 Secondary NOT GIVENUNK [place] Insurance:SELF PAY [facility] Number: Effective Repository Date:2017-06-23 06/18/2017 PRE[place] Primary Insurance:[facility] JOSE GANDARA4111 [facility] PAULETTE: [facility] 4191-48-01WHIWilliam[place], [place] Number: Repository [address]Ces: [id number] [phone] Date:5246-10-68RN [address] () 80207IUFSSAINW, [place] [address]PO: CHECK WEBSITE 06/18/2017 Secondary NOT GIVENUNK [place] Insurance:SELF PAY [facility] Number: Effective Repository Date:2017-06-18 06/17/2017 PRE[place] Primary Insurance:[facility] JOES GANDARA4111 [facility] PAULETTE: [facility] 8228-46-81XGYWilliam[place], [place] Number: Repository [address]Qre: [id number] [phone] Date:5023-21-18TY [address] (HP) [address]907HXMHJGMUG, [place] [address]DZ: CHECK WEBSITE 06/17/2017 Secondary NOT GIVENUNK [place] Insurance:SELF PAY [facility] Number: Effective Repository Date:2017-05-03 06/16/2017 [facility] Insurance:[facility] JOSE [id number] [facility] 5762-20-24EKGSt. [facility] [place] Number: Repository [address]Vcd: [id number] [phone] Date:5580-08-46HX [address] (HP) [address]64XOUSLQMNL, [place] [address]KR: CHECK WEBSITE 06/16/2017 Secondary NOT GIVENUNK [place] Insurance:SELF PAY [facility] Number: Effective Repository Date:2017-06-16 06/15/2017 [facility] Primary Insurance:[facility] JOSE GANDARA4111 [facility]: [facility] 4257-48-47SEKWilliam[place], [place] Number: Repository [address]Kcf: [id number] [phone] Date:0334-73-34RM [address] () [address]296NZAFTONTG, [place] [address]AT: CHECK WEBSITE 06/15/2017 Secondary NOT GIVENUNK [place] Insurance:SELF PAY [facility] Number: Effective Repository Date:2017-06-15 05/12/2017 [facility] Primary Insurance:[facility] JOSE [id number] [facility] NIDAB: [facility] 9914-31-74ONFWilliam[place], [place] Number: Repository [address]Ocl: [id number] [phone] Date:6853-47-77XP [address] () [address]42JDQPNJFKI, [place] [address]TR: CHECK WEBSITE 05/12/2017 Secondary NOT GIVENUNK [place] Insurance:SELF PAY [facility] Number: Effective Repository Date:2017-03-30
== END ==
PROVIDERS: Family Provider Family Medicine Geriatric Medicine; PCP Family Medicine Geriatric Medicine; Visit Provider Internal Medicine Nephrology
DX: N18.4 Chronic kidney disease, stage 4 (severe) (principal); D63.8 Anemia in other chronic diseases classified elsewhere; N25.81 Secondary hyperparathyroidism of renal origin
CPT/HCPCS: 36415; 80069; 83970; 85027

== ENCOUNTER → 2018-09-15 10:54 | Outpatient (CLI) | payer OTHER, SELFPAY ==
[2018-06-02 14:01] VITALS: BMI 33.4
[2018-09-07 14:04] VITALS: BMI 34.2
[2018-09-15 13:17] LABS: PTHIN 95.9 pg/mL (18.4-80.1)
[2018-09-15 13:20] LABS: ALB/GLOB Ratio 0.8 RATIO (0.9-2.4); AST(SGOT) 12 U/L (15-37); Alanine Aminotransfer ALT/SGPT 18 U/L (16-61); Albumin, Serum 3.1 g/dL (3.2-5.0); Alkaline Phosphatase 54 U/L (45-117); Anion Gap 8 (5-15); BUN 39 mg/dL (7-18); BUN/Creat Ratio 8.1 RATIO (10-20); Calcium,Total 8.5 mg/dL (8.5-10.1); Chloride 109 mmol/L (98-107); Creatinine, Serum 4.81 mg/dL (0.70-1.30); EST Glomerular Filtration Rate 13 mL/min (>60); Est Glom Filt Rate - Afr Amer 16 mL/min (>60); Globulin 4.1 g/dL (2.2-4.2); Glucose 191 mg/dL (74-106); Phosphorus 5.3 mg/dL (2.5-4.9); Potassium 5.8 mmol/L (3.5-5.1); Protein, Total 7.2 g/dL (6.4-8.2); Sodium Level 141 mmol/L (136-145); Thyroid Stim Hormone (TSH) 3.01 uIU/mL (0.358-3.74)
== END ==
PROVIDERS: Family Provider Family Medicine Geriatric Medicine; PCP Family Medicine Geriatric Medicine; Visit Provider Internal Medicine Nephrology
DX: I12.9 Hypertensive chronic kidney disease with stage 1 through stage 4 chronic kidney disease, or unspecified chronic kidney disease (principal); E11.22 Type 2 diabetes mellitus with diabetic chronic kidney disease; N18.4 Chronic kidney disease, stage 4 (severe); D63.1 Anemia in chronic kidney disease; D63.8 Anemia in other chronic diseases classified elsewhere; N25.81 Secondary hyperparathyroidism of renal origin; E55.9 Vitamin D deficiency, unspecified
CPT/HCPCS: 36415; 80053; 82306; 83970; 84100; 84443

== ENCOUNTER 2018-10-24 11:31 | Observation (INO) | payer OTHER, MEDICARE, SELFPAY ==
[2018-10-06 13:53] VITALS: BMI 33.6
[2018-10-24] VITALS (14 sets, daily range): BP systolic 146–186; BP diastolic 74–100; PULSE 68–83; RESP 14–20; TEMP 36.4–36.9; O2SAT 96–100; BMI 33.8; BMI 33.4; BMI 33.5
[2018-10-24 11:50] LABS: Bedside Glucose 175 mg/dL (70-110)
--- NOTE | 2018-10-24 11:50 | RAD_ITS ---
STUDY: X-RAY CHEST REASON FOR EXAM: Male, 73 years old. Syncope TECHNIQUE: Single AP portable view of the chest. COMPARISON: None. FINDINGS: The lungs are clear and expanded. There is no demonstrated pleural abnormality. Normal size heart. Normal mediastinum and yoel. Normal visualized pulmonary arteries. Normal visualized aortic arch and descending thoracic aorta. Normal visualized thoracic spine. Normal visualized ribs, clavicles, and shoulders. There is no demonstrated abnormality of the visualized soft tissue structures of the upper abdomen. RAD/Chest 1 View (Portable) IMPRESSION: Normal x-ray examination of the chest. Electronically Signed: Ryan Colorado DO at 12:32 EDT Tel , Service support ,
--- NOTE | 2018-10-24 11:50 | EKG12_ITS ---
Test Reason : SYNCOE Blood Pressure : / mmHG Vent. Rate : 066 BPM Atrial Rate : 066 BPM P-R Int : 206 ms QRS Dur : 148 ms QT Int : 420 ms P-R-T Axes : 044 -46 011 degrees QTc Int : 440 ms Normal sinus rhythm Left axis deviation Right bundle branch block Abnormal ECG Confirmed by EL JOSEPH, RENATO ([id number]), newspaper or periodical editor AGUILAR DOMINGUEZ ([id number]) on 10/26/2018 11:32:23 AM Referred By: FLORES Confirmed By:RENATO GALLEGOS MD
--- NOTE | 2018-10-24 11:50 | CT_ITS ---
STUDY: CT BRAIN WITHOUT CONTRAST REASON FOR EXAM: Male, 73 years old. Syncope RADIATION DOSAGE (If Supplied By Facility): CTDIvol = ( 44.99 ) mGy, DLP = ( 812.98 ) mGycm TECHNIQUE: Transaxial CT imaging of the brain was performed without administration of intravenous contrast material. Individualized dose optimization techniques were used for this CT. COMPARISON: No relevant priors. FINDINGS: Normal soft tissue structures. Normal calvarium. There is mild cerebral atrophy with widening of the extra-axial spaces and ventricular dilatation. There are areas of decreased attenuation within the white matter tracts of the supratentorial brain, consistent with microvascular disease changes. Normal basal ganglia and thalami. Normal brainstem. Normal cerebellum. There is no intracranial hemorrhage. There are no findings of an acute ischemic infarction. There is mucoperiosteal inflammatory disease of the paranasal sinuses consistent with mild chronic sinusitis. CT/Brain/Head without Contrast IMPRESSION: Chronic involutional changes of the brain. Electronically Signed: Ryan Colorado DO at 12:32 EDT Tel , Service support ,
[2018-10-24 11:58] LABS: Absolute Lymphocyte Count 1.85 X10^3/ul (0.83-4.51); Absolute Neutrophil Count 4.3 X10^3/uL (2.0-7.7); Basophil# 0.03 X10^3/uL; Basophil% 0.4 % (0-1); Eosinophil# 0.75 X10^3/uL; Eosinophils% 9.8 % (0-5); Hematocrit 32.4 % (40-54); Hemoglobin 10.7 g/dl (13.0-16.5); Lymphocyte # 1.85 X10^3/ul (4.0); Lymphocyte % 24.3 % (19-41); Mean Corpuscular Hgb 26.8 pg (27.0-32.0); Monocyte# 0.65 X10^3/uL; Monocyte% 8.5 % (0-10); Neutrophil # 4.32 X10^3/uL (2.7-7.7); Neutrophil % 56.7 % (47-70); Platelet Count 212 K/mm3 (150-450); RBC Distribution Width CV 14.4 % (11.6-14.6); RBC Distribution Width SD 41.3 fl (35.1-43.9); White Blood Count 7.6 K/mm3 (4.4-11.0)
[2018-10-24 11:59] LABS: POSITIVE COUNT NO; POSITIVE DIFFERENTIAL NO; POSITIVE MORPHOLOGY NO
[2018-10-24 12:17] LABS: Anion Gap 8 (5-15); BUN 65 mg/dL (7-18); BUN/Creat Ratio 12.4 RATIO (10-20); Calcium,Total 8.4 mg/dL (8.5-10.1); Chloride 112 mmol/L (98-107); Creatinine, Serum 5.24 mg/dL (0.70-1.30); EST Glomerular Filtration Rate 12 mL/min (>60); Est Glom Filt Rate - Afr Amer 14 mL/min (>60); Estimated Creatinine Clearance 12.51 ml/min; Glucose 195 mg/dL (74-106); Sodium Level 141 mmol/L (136-145)
--- NOTE | 2018-10-24 12:30 | ED.DCSUM_ITS ---
- ER Visit Summary Date of Service: 10/24/18 Chief Complaint: Syncope History of Present Illness: The patient is a 73 M here with his who is a nurse. He presents after a syncopal episode. He was sitting at his computer for about 20 minutes. He reports no prodromal symptoms. He was feeling fine. He slumped over for about 6 seconds. No shaking. No postictal period. No history of seizures. Patient had some mild diaphoresis and nausea afterwards. No other associated symptoms. He did not take his blood pressure medicines yet today. He has a history of hypertension, diabetes, chronic kidney disease, hyperkalemia, and near syncope. He had a stress test over one year ago which was unremarkable. No history of coronary disease or dysrhythmias. No history of DVT or PE. No leg swelling. No recent immobilization, travel, surgery. No focal weakness or numbness, speech changes, vision changes, or facial droop. Physical Examination: Afebrile and vital signs unremarkable except for a blood pressure of 181/83. Alert and oriented. No acute distress. Skin normal in color without pallor, diaphoresis. Heart regular rate and rhythm. Lungs clear. Abdomen soft and nontender. Moves all extremities, cranial nerves normal. NIH stroke scale 0. Test Results: EKG showed sinus rhythm at a rate of 66. No sign of acute ischemia or infarction pattern. Right bundle branch block pattern noted. Hemoglobin 10.7. Glucose 195, BUN 65, creatinine 5.24. Troponin normal. Chest x-ray and CT brain pending. Emergency Department Course and Treatment: Patient was placed on a monitor. EKG was done and unremarkable. Laboratory studies show stable anemia, chronic BUN and creatinine elevation. Troponin normal. Imaging pending. Hemoglobin 10.7, BUN 65, creatinine 5.24. Troponin normal. EKG showed sinus rhythm at a rate of 66 with a right bundle branch block pattern. Chest x-ray was normal and CT brain showed chronic changes. I cannot rule out a cardiac etiology. His last stress test was over a year ago. He does have some nausea and diaphoresis with this. I contacted the hospitalist for further care. Treatment Plan: As above Disposition: PCU observation Impression: 1. Syncope This note was generated with [employer] software. It may contain incorrect words, spelling, and punctuation that were not noted in review of the chart prior to signing ED Disposition - Plan for ED Patient: Referrals: Sy Sharma Chi, MD [Primary Care Provider] -
[2018-10-24] MEDS: amLODIPine 10 MG Tablet PO (12:33)
[2018-10-24] MEDS: Carvedilol 12.5 MG Tablet PO ×2 (12:33→21:23)
--- NOTE | 2018-10-24 13:51 | HP.PCM_ITS ---
History of Present Illness Date of Admission: 10/24/18 Chief Complaint: syncope The patient is a 73 year old M with a PMH as listed. He was admitted on 10/24/18 with a complaint of syncope. Patient states he was sitting at his computer for about 20 minutes and passed out. His was by his side and noted that he suddenly became unresponsive and his eyes rolled to the back of his head and he slumped over. Patient however immediately came to and was able to tell his exactly what happened. Patient had had 2 pies with large cup of coffee this about an hour or so prior to the symptoms happening. He did not complain of any prodromal lightheadedness or dizziness, palpitations, chest pain, diarrhea or vomiting. He has not had a syncope in the past. He denies any numbness or tingling or weakness in any extremity. Initially in the ED, vitals was given for elevated blood pressure in the 180s systolic. He was saturating at 97% on room air. Chemistry showed creatinine of 5.24 which is around his baseline initial troponin was negative. Potassium was 5. CBC was unremarkable apart from hemoglobin of 10.7. Patient did admit to being under a lot of stress because of 1 of his kids but otherwise been fine. He did admit to worsening lethargy recently and said he feels tired all the time. CT of the brain done was negative and EKG showed no acute ST changes. He has been admitted to be managed for syncope. 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) E11.22 DM2 (diabetes mellitus, type 2) (Chronic) E11.9 Hypertensive urgency (Acute) I16.0 ARF (acute renal failure) (Acute) HTN (hypertension) (Chronic) I10 Pre-syncope (Acute) Anemia D64.9 Hyperlipidemia E78.5 [place] teeth removed K08.409 Allergies No Known Allergies Allergy (Verified 10/24/18 11:32) Home Medications: Ambulatory Orders Medication Instructions Recorded Atorvastatin Calcium [Lipitor] 40 mg PO QHS 06/23/17 Dulaglutide [Trulicity] 1.5 mg SQ FR 06/23/17 Carvedilol [Coreg (Beta Samantha)] 12.5 mg PO BID 07/21/17 Amlodipine [Norvasc] 5 mg PO DAILY 10/24/18 Calcitriol 0.25 mcg PO DAILY 10/24/18 Ferrous Sulfate 325 mg PO DAILY 10/24/18 Linagliptin [Tradjenta] 5 mg PO DAILY 10/24/18 Surgical History: Surgical History (Last Reviewed 10/06/18 @ 13:51 by Sharon See) S/P colonoscopy Z98.890 Surgical History: no surgical history Smoking Status: Former smoker Alcohol: None Drugs: None - *Family History Maternal Family History: Family History (Last Reviewed 10/06/18 @ 13:51 by Sharon See) Father Pneumonia Mother CVA (cerebral vascular accident) History Items: Diabetes, Hypertension, Renal Disease, Stroke Paternal Family History: Family History (Last Reviewed 10/06/18 @ 13:51 by Sharon See) Father Pneumonia Mother CVA (cerebral vascular accident) History Items: Heart Disease Review of Systems Constitutional: Reports: Malaise, Weakness, Fatigue. Denies: Anorexia, Chills, Fever Eyes: Denies: Blurred vision, Vision Change HEENT: Denies: Head Aches, Sinus Congestion, Sinus Drainage Cardiovascular: Denies: Chest Pain, Palpitations Respiratory: Denies: Cough, Shortness of Breath, Shortness of breath at rest, Shortness of breath upon exertion, Sputum production Gastrointestinal: Denies: Abdominal Pain, Nausea, Vomiting Genitourinary: Denies: Dysuria Musculoskeletal: Denies: Joint Pain, Joint Tenderness Skin: Denies: Rash, Wounds Neurological: Denies: Blurred vision, Double vision, Change in Speech, Confusion, Difficulty swallowing, Focal weakness, Headaches, Numbness, Tingling, Tremor, Seizures Psychiatric: Denies: Anxiety, Depression, Homicidal Ideations, Suicidal Ideations Hematologic/ Lymphatic: Denies: Easy Bruising, Easy Bleeding VTE Information - Inpt Only VTE Present on Admission: No VTE Pharm Prophylaxis ordered?: Yes - Physical Exam General: Alert, Oriented x3, Cooperative, No apparent distress HEENT: Atraumatic, PERRLA, EOMI, Normocephalic Oral: Moist Mucosa Neck: Supple, No JVD, Negative Carotid Bruits Lungs: Clear to auscultation, Normal air movement, No rhonchi, No wheeze, No rales Cardiovascular: Regular rate, Regular Rhythm, Normal S1, Normal S2, No murmurs Abdomen: Bowel Sounds Present, Soft, Non Tender, Non-Distended, No Hepato- splenomegaly Extremities: No clubbing, No cyanosis, No edema, Capillary Refill Less than 3 Seconds Skin: No rashes, No breakdown Musculoskeletal: No Tenderness to Palpation of Joints or Extremities Lymphatic: No Cervical, Supraclavicular, or Inguinal Adenopathy Neurological: Cranial nerves II-XII grossly intact, Neuro grossly intact, Motor Exam 5/5 strength throughout Psych/Mental Status: Normal Affect, Appropriate, Alert and oriented to time, place, person, mood and affect Vital Signs Temp Pulse Resp BP Pulse Ox 98.5 F 82 14 184/79 H 100 10/24/18 11:32 10/24/18 13:19 10/24/18 12:36 10/24/18 13:19 10/24/18 12:36 Oxygen Delivery Method Room Air Weight: 222 lb 7.143 oz Body Mass Index (BMI) 33.8 Laboratory Tests Past 24 Hrs 10/24/18 10/24/18 11:55 11:55 WBC 7.6 RBC 4.00 L Hgb 10.7 L Hct 32.4 L MCV 81.0 MCH 26.8 L MCHC 33.0 RDW 14.4 RDW Differential 41.3 Plt Count 212 MPV 11.0 Immature Gran % (Auto) 0.300 Neut % (Auto) 56.7 Lymph % (Auto) 24.3 [place] % (Auto) 8.5 Eos % (Auto) 9.8 H Baso % (Auto) 0.4 Absolute Neuts (auto) 4.3 Absolute Lymphs (auto) 1.85 Total Counted Not Reportable Sodium 141 Potassium 5.0 Chloride 112 H Carbon Dioxide 21.0 Anion Gap 8 BUN 65 H Creatinine 5.24 H Estim Creat Clear Calc 12.51 Est GFR (MDRD) Af Amer 14 L Est GFR (MDRD) Non-Af 12 L BUN/Creatinine Ratio 12.4 Glucose 195 H Calcium 8.4 L Troponin I < 0.015 POC Glucose 10/24/18 11:41 POC Glucose 175 H Diagnostic Data Brain CT 10/24/18 11:50 IMPRESSION: Chronic involutional changes of the brain. Electronically Signed: Ryan Colorado DO at 12:32 EDT Tel , Service support , Chest X-Ray 10/24/18 11:50 IMPRESSION: Normal x-ray examination of the chest. Electronically Signed: Ryan Colorado DO at 12:32 EDT Tel , Service support , Assessment/Plan All Active Problems (Last Reviewed 10/06/18 @ 13:51 by Sharon See) DEVIN (acute kidney injury) (Acute) Hyperkalemia (Acute) Near syncope (Acute) Screening for intestinal cancer (Acute) Hypertensive urgency (Acute) ARF (acute renal failure) (Acute) Pre-syncope (Acute) 73-year-old male admitted with complaint of syncope. 1. Syncope likely vasovagal * He had eaten a good breakfast prior to the syncopal episode. * it was very brief, and he immediately came round and had no associated confusion or drowsiness * admit to PCU with telemetry * CT of the brain was negative and only showed chronic involutional changes of the brain * check orthostatics * PT/OT consult * MRI not ordered o/a of very brief syncopal episode with immediate recovery, making it seem more vasovagal. * echo(2016) showed normal left ventricular size and function with EF of 55% and pulmonary artery pressure of 30 mmHg. * will get an echo as part of the work-up. * 2. Hypertension; * hadnt taken his meds this morning. BP was in 180s on admission. * received his BP meds in the ED. * On amlodipine, carvedilol. IV hydralazine prn * 3. Diabetes mellitus: on dulaglutide and linagliptin. ISS. Accuchecks ACHS. 4. CKD 5: * Cr is 5.24 today, with EGFR of 12 * baseline is ~ 4.8, but it has been gradually trending upwards, with Cr being 5.4 on 10/06/18 * on calcitriol * patient says one of his children has offered to donate a kidney to him. To follow up with his director of operations on outpatient basis. 5. Hyperlipidemia: on statin DVT prophylaxis: lovenox-therapeutic dose. Code Visit OBSV E&M: 70086 Initial observation care L3
--- NOTE | 2018-10-24 13:56 | NURSING ---
PCU SYNCOPE KORAM
--- NOTE | 2018-10-24 14:10 | CASEMGMT ---
RN CM Assessment Introduced role of RN CM to patient and patient Esperanza Burns at bedside.? Patient is alert, oriented and able?to participate in RN CM Assessment. ?Information provided by both patient and . Care providers, pharmacy, and demographics verified. Presentation: Syncopal Episode while at his Computer Admit Dx: Syncope Re-Admit: No Barriers/Issues: None. works here at [employer]. PCP: Sy Sharma Chi Specialists: Hem- Dr Hanks, Nephro- Dr Mix Preferred Pharmacy: [facility] Insurance: [facility] [employer] Rx Benefit:?Yes LNOK: Esperanza Burns LW/HPOA: Yes Both, HPOA- Esperanza Burns Living Arrangements:?Lives with ADL?s: Independent with ambulation and ADLs Transportation: Patient drives, to transport on DC DME: None HHC: None SNF: None Goal: Home, does not think will have any needs. Denies questions/concerns. Aware CM remains available for any emerging needs. DC PLAN: Home with no anticipated needs identified. Michelle Alexander RNCM
--- NOTE | 2018-10-24 15:33 | ECHOCS_ITS ---
Reason For Study: Arrhythmia Procedure This was a 2D Doppler, Color Flow transthoracic echocardiogram. The study was technically difficult. Contrast injection was performed. Exam performed portable in patient room. Left Ventricle Normal LV size. Left ventricular systolic function is normal. The estimated ejection fraction is 65 %. No evidence for diastolic dysfunction. No regional wall motion abnormalities noted. Right Ventricle Normal RV size. Normal systolic function. Atria The left atrium is mildly enlarged. Normal right atrium. No doppler evidence for ASD. Mitral Valve There is no mitral annular calcification. Normal mitral valve. Trivial mitral valve insufficiency. Tricuspid Valve Normal tricuspid valve. Trivial tricuspid valve insufficiency. Unable to estimate RV systolic pressure/pulmonary artery pressure due to technically difficult study. Aortic Valve Trisinus/trileaflet aortic valve. Mild focal aortic valve thickening. Pulmonic Valve The pulmonic valve is not well visualized. Great Vessels The aortic root is not well visualized. Pericardium/Pleural No pericardial effusion. Medication Diluted definity 3ml given slow IV push to enhance endocardial definition. MMode/2D Measurements & Calculations LVIDd: 5.3 cm IVSd: 1.1 cm LA dimension: 4.2 cm LVIDs: 2.9 cm LVPWd: 1.2 cm FS: 44.5 % LAV(MOD-bp): 59.0 ml LA A4 area: 20.5 cm2 RA A4 area: 11.5 cm2 LAV(MOD-bp) Indexed: 27.6 ml/m2 LAV(MOD-sp2): 55.7 ml LAV(MOD-sp4): 57.9 ml Time Measurements MV dec time: 0.22 sec Doppler Measurements & Calculations MV E max carlos manuel: 85.1 cm/sec Lat Peak E' Carlos Manuel: 10.4 cm/sec Med Peak E' Carlos Manuel: 7.1 cm/sec MV A max carlos manuel: 116.0 cm/sec E/E' lat: 8.2 E/E' med: 12.0 MV E/A: 0.73 MV V2 max: 150.2 cm/sec MV P1/2t max carlos manuel: 107.9 cm/sec Ao V2 max: 175.3 cm/sec MV max P.0 mmHg MV P1/2t: 71.1 msec Ao max P.3 mmHg MV V2 mean: 75.9 cm/sec MV dec slope: 444.6 cm/sec2 MV mean P.8 mmHg MV V2 VTI: 34.3 cm MVA(P1/2t): 3.1 cm2 LV V1 max: 135.4 cm/sec PA V2 max: 111.7 cm/sec LV V1 max P.3 mmHg Interpretation Summary The study was technically difficult. Contrast injection was performed. Left ventricular systolic function is normal. The estimated ejection fraction is 65 %. The left atrium is mildly enlarged. Trivial mitral valve insufficiency. Trivial tricuspid valve insufficiency. Mild focal aortic valve thickening. Unable to estimate RV systolic pressure/pulmonary artery pressure due to technically difficult study. No evidence for diastolic dysfunction. Ordering Physician: Belen Alcazar Referring Physician: Sy Sharma Chi Performed By: Howard Escamilla RCS
[2018-10-24 16:15] LABS: Bedside Glucose 188 mg/dL (70-110)
[2018-10-24] MEDS: Insulin Lispro 100 UNIT/ML INSULN.PEN SC ×2 (17:45→21:23)
[2018-10-24] MEDS: hydrALAZINE 20 MG/ML Vial 10 MG IV (18:26)
[2018-10-24] MEDS: 0.9% NaCl Peripheral Flush Adult/Peds IV (18:27)
[2018-10-24] MEDS: 0.9% Normal Saline 1,000 ML 50 ML IV (19:05)
[2018-10-24] MEDS: Atorvastatin Calcium 40 MG Tablet PO (21:23)
[2018-10-24] MEDS: Heparin Injection (Vial) 5,000 UNIT/ML VIAL 5000 UNIT SC (21:23)
[2018-10-24 21:36] LABS: Bedside Glucose 158 mg/dL (70-110)
[2018-10-25] VITALS (8 sets, daily range): BP systolic 131–167; BP diastolic 73–88; PULSE 67–81; RESP 16–18; TEMP 36.6–37.1; O2SAT 97–99
[2018-10-25 05:40] LABS: Absolute Neutrophil Count 4.4 X10^3/uL (2.0-7.7); Basophil# 0.03 X10^3/uL; Basophil% 0.4 % (0-1); Eosinophil# 0.72 X10^3/uL; Eosinophils% 9.7 % (0-5); Hematocrit 33.7 % (40-54); Hemoglobin 10.8 g/dl (13.0-16.5); Lymphocyte % 24.2 % (19-41); Mean Corpuscular Hgb 25.9 pg (27.0-32.0); Mean Corpuscular Volume 80.8 fL (80-94); Mean Platelet Vol. 10.6 fl (6.2-12.0); Monocyte# 0.46 X10^3/uL; Monocyte% 6.2 % (0-10); Neutrophil # 4.41 X10^3/uL (2.7-7.7); Neutrophil % 59.4 % (47-70); Platelet Count 216 K/mm3 (150-450); RBC Distribution Width CV 14.5 % (11.6-14.6); RBC Distribution Width SD 41.7 fl (35.1-43.9); Red Blood Count 4.17 M/mm3 (4.6-6.2); White Blood Count 7.4 K/mm3 (4.4-11.0)
[2018-10-25 05:43] LABS: POSITIVE COUNT NO; POSITIVE DIFFERENTIAL NO; POSITIVE MORPHOLOGY NO
[2018-10-25] MEDS: Insulin Lispro 100 UNIT/ML INSULN.PEN SC ×2 (06:33→12:32)
[2018-10-25] MEDS: Heparin Injection (Vial) 5,000 UNIT/ML VIAL 5000 UNIT SC (06:33)
[2018-10-25 06:51] LABS: Bedside Glucose 154 mg/dL (70-110)
[2018-10-25] MEDS: Carvedilol 12.5 MG Tablet PO (09:45)
[2018-10-25] MEDS: LINAGLIPTIN 5 MG TABLET PO (09:46)
[2018-10-25] MEDS: Calcitriol 0.25 MCG Capsule PO (09:46)
[2018-10-25] MEDS: Ferrous Sulfate 325 MG Tablet PO (09:46)
[2018-10-25] MEDS: amLODIPine 5 MG Tablet PO (09:46)
[2018-10-25 11:55] LABS: Bedside Glucose 262 mg/dL (70-110)
--- NOTE | 2018-10-25 14:59 | CHAPLAIN ---
Type of Pastoral Visit _x__ Initial Visit ___ Follow-up Visit ___ On-call Visit ___ General Patient Visit ___ Spiritual Assessment ___ Family Conference ___ Bereavement ___ Rapid Response ___ Code Blue ___ Other (describe below) Pastoral Care Referral From _x__ Patient ___ Family ___ Nurse ___ Physician ___ Silver Plater ___ Agricultural Equipment Mechanic ___ Other (describe below) Sacrament/Intervention ___ Active listening ___ Anointing ___ Pentecostal ___ Bereavement ___ Communion ___ Ximena exploration ___ ___ Life review ___ Prayer ___ Reconciliation ___ Sacrament of Sick _x__ Supportive presence ___ Wedding ___ Other (describe below) Pastoral Comments
--- NOTE | 2018-10-25 15:22 | DCINST_ITS ---
You will use the following diet at home:: Renal (restricted protein/sodium) Your food should be the consistency of: Regular Your liquids should be the consistency of: Regular/Thin Discharge Activity: Return to Normal Activity Call your doctor if you observe: Fever of 101 or Higher, Shortness of breath, Dizziness, Fainting spells, Swelling in the ankles, Chest pain, Increased palpitations (irregular heartbeat) Allergies/Adverse Reactions: Allergies No Known Allergies Allergy (Verified 10/24/18 11:32) Medications to take at Discharge Atorvastatin Calcium [Lipitor] 40 mg PO QHS 06/23/17 Dulaglutide [Trulicity] 1.5 mg SQ FR 06/23/17 Carvedilol [Coreg (Beta Samantha)] 12.5 mg PO BID 07/21/17 Amlodipine [Norvasc] 5 mg PO DAILY 10/24/18 Calcitriol 0.25 mcg PO DAILY 10/24/18 Ferrous Sulfate 325 mg PO DAILY 10/24/18 Linagliptin [Tradjenta] 5 mg PO DAILY 10/24/18 Primary Care Physician: Sy Sharma Chi, MD [Primary Care Provider] - Please follow up with your Primary Care Physician in: 3-5 days Test Results: Test results from this visit will be discussed in further detail at your follow- up appointment, if applicable.
--- NOTE | 2018-10-25 15:24 | DS.PCM_ITS ---
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 CXR: IMPRESSION: Normal x-ray examination of the chest. Operations: None Procedures: 2-D Echocardiogram - Interpretation Summary The study was technically difficult. Contrast injection was performed. Left ventricular systolic function is normal. The estimated ejection fraction is 65 %. The left a trium is mildly enlarged. Trivial mitral valve insufficiency. Trivial tricuspid valve insufficiency. Mild focal aortic valve thickening. Unable to estimate RV systolic pressure/pulmonary artery pressure due to technically difficult study. No evidence for diastolic dysfunction. Summary of Care Provided: HPI: The patient is a 73 year old M with a PMH as listed. He was admitted on 10/24/18 with a complaint of syncope. Patient states he was sitting at his computer for about 20 minutes and passed out. His was by his side and noted that he suddenly became unresponsive and his eyes rolled to the back of his head and he slumped over. Patient however immediately came to and was able to tell his exactly what happened. Patient had had 2 pies with large cup of coffee this about an hour or so prior to the symptoms happening. He did not complain of any prodromal lightheadedness or dizziness, palpitations, chest pain, diarrhea or vomiting. He has not had a syncope in the past. He denies any numbness or tingling or weakness in any extremity. Initially in the ED, vitals was given for elevated blood pressure in the 180s systolic. He was saturating at 97% on room air. Chemistry showed creatinine of 5.24 which is around his baseline initial troponin was negative. Potassium was 5. CBC was unremarkable apart from hemoglobin of 10.7. Patient did admit to being under a lot of stress because of 1 of his kids but otherwise been fine. He did admit to worsening lethargy recently and said he feels tired all the time. CT of the brain done was negative and EKG showed no acute ST changes. He has been admitted to be managed for syncope. [] Hospital Course: 1. [id number]-old male with a history of CKD 5, diabetes, hypertension presented with syncope. He was at home sitting up at the computer when his eyes rolled back into his head and he passed out. He woke up very quickly and this was witnessed by his who is a nurse. There is no seizure-like activity and he denies any signs or symptoms of palpitations or an arrhythmia beforehand. He has been monitored on telemetry for 24 hours and has not had any arrhythmia genic activity. He did have positive orthostatic vital signs lending to the possibility of dehydration and the diagnosed with vasovagal syncope. He had an echo which was normal and it was discussed with him and his about discharge home which he would like to do. I also did discuss with him that he should follow-up with his primary care doctor and if this happens again will likely need an outpatient Holter monitor. I also recommended that he can increase his water intake to help prevent any type of orthostatic hypotension in the future. 2. His other medical diagnoses were evaluated and his home medications were continued where appropriate - Physical Exam General: Alert, Oriented x3, Cooperative, No apparent distress HEENT: Atraumatic, PERRLA, EOMI, Normocephalic Oral: Moist Mucosa Neck: Supple, No JVD Lungs: Clear to auscultation, Normal air movement, No rhonchi, No wheeze, No rales Cardiovascular: Regular rate, Regular Rhythm, Normal S1, Normal S2, No murmurs Abdomen: Soft, Non Tender, Non-Distended, No Hepato-splenomegaly Extremities: No edema, Capillary Refill Less than 3 Seconds Skin: No rashes, No breakdown Neurological: Neuro grossly intact, Sensory exam intact to light touch and pain Psych/Mental Status: Normal Affect, Appropriate Vital Signs Temp Pulse Resp BP Pulse Ox 97.9 F 71 18 167/88 H 97 10/25/18 09:15 10/25/18 14:57 10/25/18 09:15 10/25/18 09:15 10/25/18 09:15 Oxygen Delivery Method Room Air Weight: 220 lb Body Mass Index (BMI) 33.4 Orthostatic Vital Signs Start: 10/24/18 17:56 Freq: q24h Status: Active Protocol: Activity Type Activity Date Activity User E-Sign Co-Sign Detail Recorded Client Recorded Date Recorded By Document 10/25/18 06:23 BS [id number] 10/25/18 06:29 BS 10/25/18 06:23 Orthostatic Vitals Standing -Blood Pressure (90/60-120/80) 131/75 H -Extremity Use Right Arm -Pulse Rate (60-100) 76 Sitting -Blood Pressure (90/60-120/80) 155/73 H -Extremity Use Right Arm -Pulse Rate (60-100) 75 Lying -Blood Pressure (90/60-120/80) 158/79 H -Extremity Use Right Arm -Pulse Rate (60-100) 71 Intake and Output for Last 24 Hours 10/23/18 10/24/18 10/25/18 23:59 23:59 23:59 Intake Total 912 / 912 768 / 768 Balance 912 / 912 768 / 768 Laboratory Tests Past 24 Hrs 10/25/18 05:24 WBC 7.4 RBC 4.17 L Hgb 10.8 L Hct 33.7 L MCV 80.8 MCH 25.9 L MCHC 32.0 RDW 14.5 RDW Differential 41.7 Plt Count 216 MPV 10.6 Immature Gran % (Auto) 0.100 Neut % (Auto) 59.4 Lymph % (Auto) 24.2 [place] % (Auto) 6.2 Eos % (Auto) 9.7 H Baso % (Auto) 0.4 Absolute Neuts (auto) 4.4 Absolute Lymphs (auto) 1.80 Total Counted Not Reportable POC Glucose 10/25/18 10/25/18 10/24/18 11:49 06:31 21:14 POC Glucose 262 H 154 H 158 H 10/24/18 16:07 POC Glucose 188 H Discharge Activity: Return to Normal Activity Call your doctor if you observe: Fever of 101 or Higher, Shortness of breath, Dizziness, Fainting spells, Swelling in the ankles, Chest pain, Increased palpitations (irregular heartbeat) Home Medications: Medications to take at Discharge Atorvastatin Calcium [Lipitor] 40 mg PO QHS 06/23/17 Dulaglutide [Trulicity] 1.5 mg SQ FR 06/23/17 Carvedilol [Coreg (Beta Samantha)] 12.5 mg PO BID 07/21/17 Amlodipine [Norvasc] 5 mg PO DAILY 10/24/18 Calcitriol 0.25 mcg PO DAILY 10/24/18 Ferrous Sulfate 325 mg PO DAILY 10/24/18 Linagliptin [Tradjenta] 5 mg PO DAILY 10/24/18 Primary Care Physician: Sy Sharma Chi, MD [Primary Care Provider] - Please follow up with your Primary Care Physician in: 3-5 days Disposition: Home Minutes spent on discharge:: 35 Patient Condition:: Good Medical Necessity - Tobacco Use Smoking Status: Former smoker Tobacco Use: Cigarettes Meaningful Use Info Meaningful Use Diagnoses (Choose all that apply): None applicable Code Visit OBSV E&M: 87680 Observation care discharge
== END 2018-10-25 15:39 | disposition home or self-care (01) ==
LOC: ED 12:07 → PCU 14:09
PROVIDERS: Admitting Provider Student in an Organized Health Care Education/Training Program; Emergency Provider Emergency Medicine; Family Provider Family Medicine Geriatric Medicine; PCP Family Medicine Geriatric Medicine; Visit Provider Family Medicine
DX: R55 Syncope and collapse (principal); R29.700 NIHSS score 0; G47.33 Obstructive sleep apnea (adult) (pediatric); E11.22 Type 2 diabetes mellitus with diabetic chronic kidney disease; I12.0 Hypertensive chronic kidney disease with stage 5 chronic kidney disease or end stage renal disease; N18.5 Chronic kidney disease, stage 5; D63.1 Anemia in chronic kidney disease; E78.5 Hyperlipidemia, unspecified; E66.9 Obesity, unspecified; Z68.33 Body mass index [BMI] 33.0-33.9, adult; Z71.3 Dietary counseling and surveillance; Z79.899 Other long term (current) drug therapy; Z87.891 Personal history of nicotine dependence
CPT/HCPCS: 36415; 70450; 71045; 80048; 82962; 84484; 85025; 93005; 93306; 96372; 96374; 99218; 99285; J7030; Q9957; A4216; C8929; G0378

== ENCOUNTER → 2019-01-19 11:40 | Outpatient (CLI) | payer OTHER, SELFPAY ==
[2018-12-08 14:14] VITALS: BMI 30.4
[2019-01-12 13:58] VITALS: BMI 34.3
[2019-01-19 12:43] LABS: Hematocrit 31.7 % (40-54); Mean Corp Hgb Conc 31.5 g/dL (32-36); Mean Corpuscular Hgb 26.2 pg (27.0-32.0); Mean Corpuscular Volume 83.2 fL (80-94); Mean Platelet Vol. 11.3 fl (6.2-12.0); Platelet Count 230 K/mm3 (150-450); RBC Distribution Width CV 15.6 % (11.6-14.6); RBC Distribution Width SD 44.4 fl (35.1-43.9); Red Blood Count 3.81 M/mm3 (4.6-6.2); White Blood Count 8.2 K/mm3 (4.4-11.0)
[2019-01-19 13:09] LABS: PTHIN 207.3 pg/mL (18.4-80.1)
[2019-01-19 13:23] LABS: Albumin, Serum 3.2 g/dL (3.2-5.0); BUN 60 mg/dL (7-18); BUN/Creat Ratio 10.7 RATIO (10-20); Calcium,Total 8.9 mg/dL (8.5-10.1); Chloride 109 mmol/L (98-107); Creatinine, Serum 5.62 mg/dL (0.70-1.30); EST Glomerular Filtration Rate 11 mL/min (>60); Est Glom Filt Rate - Afr Amer 13 mL/min (>60); Glucose 223 mg/dL (74-106); Potassium 4.9 mmol/L (3.5-5.1); Sodium Level 138 mmol/L (136-145)
== END ==
PROVIDERS: Family Provider Family Medicine Geriatric Medicine; PCP Family Medicine Geriatric Medicine; Visit Provider Internal Medicine Nephrology
DX: N18.5 Chronic kidney disease, stage 5 (principal); N25.81 Secondary hyperparathyroidism of renal origin
CPT/HCPCS: 36415; 80069; 83970; 85027

== ENCOUNTER → 2019-03-17 08:44 | Outpatient (CLI) | payer OTHER, SELFPAY ==
[2019-02-16 12:08] VITALS: BMI 33.6
[2019-03-17 11:45] LABS: Absolute Lymphocyte Count 1.37 X10^3/uL (0.83-4.51); Basophil# 0.03 X10^3/uL; Basophil% 0.4 % (0-1); Eosinophil# 0.05 X10^3/uL; Eosinophils% 0.7 % (0-5); Hematocrit 29.2 % (40-54); Hemoglobin 8.9 g/dL (13.0-16.5); Lymphocyte # 1.37 X10^3/ul (4.0); Lymphocyte % 19.5 % (19-41); Mean Corp Hgb Conc 30.5 g/dL (32-36); Mean Corpuscular Hgb 26.2 pg (27.0-32.0); Mean Corpuscular Volume 85.9 fL (80-94); Mean Platelet Vol. 12.1 fl (6.2-12.0); Monocyte# 0.48 X10^3/uL; Monocyte% 6.8 % (0-10); NRBC Flagged by Analyzer 0 % (0-5); Neutrophil # 4.98 X10^3/uL (2.7-7.7); Platelet Count 218 K/mm3 (150-450); RBC Distribution Width CV 17.5 % (11.6-14.6); RBC Distribution Width SD 54.9 fl (35.1-43.9)
[2019-03-17 12:01] LABS: Vitamin D,25 Hydroxy 19.4 ng/mL (29.95-100.01)
[2019-03-17 12:08] LABS: AST(SGOT) 15 U/L (15-37); Alanine Aminotransfer ALT/SGPT 26 U/L (16-61); Albumin, Serum 3.4 g/dL (3.2-5.0); Alkaline Phosphatase 84 U/L (45-117); Anion Gap 8 (5-15); BUN 34 mg/dL (7-18); BUN/Creat Ratio 14.7 RATIO (10-20); Calcium,Total 8.5 mg/dL (8.5-10.1); Chloride 110 mmol/L (98-107); Creatinine, Serum 2.32 mg/dL (0.70-1.30); EST Glomerular Filtration Rate 30 mL/min (>60); Est Glom Filt Rate - Afr Amer 36 mL/min (>60); Globulin 3.4 g/dL (2.2-4.2); Glucose 186 mg/dL (74-106); Potassium 4.7 mmol/L (3.5-5.1); Protein, Total 6.8 g/dL (6.4-8.2); Sodium Level 139 mmol/L (136-145); Thyroid Stim Hormone (TSH) 2.15 uIU/mL (0.358-3.74)
== END ==
PROVIDERS: Family Provider Family Medicine Geriatric Medicine; PCP Family Medicine Geriatric Medicine; Visit Provider Family Medicine Geriatric Medicine
DX: E11.9 Type 2 diabetes mellitus without complications (principal); E55.9 Vitamin D deficiency, unspecified; I10 Essential (primary) hypertension
CPT/HCPCS: 36415; 80053; 82306; 84443; 85025

== ENCOUNTER → 2019-06-16 11:15 | Outpatient (CLI) | payer OTHER, SELFPAY ==
[2019-02-16 12:08] VITALS: BMI 33.6
[2019-06-16 12:39] LABS: Hematocrit 40.8 % (40-54); Hemoglobin 12.8 g/dL (13.0-16.5); Mean Corp Hgb Conc 31.4 g/dL (32-36); Mean Corpuscular Volume 82.8 fL (80-94); Mean Platelet Vol. 11.6 fl (6.2-12.0); POSITIVE COUNT YES; POSITIVE MORPHOLOGY YES; Platelet Count 212 K/mm3 (150-450); RBC Distribution Width CV 12.8 % (11.6-14.6); RBC Distribution Width SD 38.3 fl (35.1-43.9); Red Blood Count 4.93 M/mm3 (4.6-6.2); White Blood Count 4.7 K/mm3 (4.4-11.0)
[2019-06-16 12:40] LABS: Differential Indicated MANUAL DIFF; Vitamin D,25 Hydroxy 24.4 ng/mL
[2019-06-16 12:49] LABS: ALB/GLOB Ratio 0.9 RATIO (0.9-2.4); AST(SGOT) 23 U/L (15-37); Alanine Aminotransfer ALT/SGPT 22 U/L (16-61); Albumin, Serum 3.3 g/dL (3.2-5.0); Alkaline Phosphatase 72 U/L (45-117); Anion Gap 6 (5-15); BUN 22 mg/dL (7-18); BUN/Creat Ratio 11.8 RATIO (10-20); Chloride 108 mmol/L (98-107); Creatinine, Serum 1.87 mg/dL (0.70-1.30); EST Glomerular Filtration Rate 38 mL/min (>60); Est Glom Filt Rate - Afr Amer 46 mL/min (>60); Globulin 3.8 g/dL (2.2-4.2); Glucose 239 mg/dL (74-106); Potassium 4.9 mmol/L (3.5-5.1); Protein, Total 7.1 g/dL (6.4-8.2); Sodium Level 139 mmol/L (136-145); Thyroid Stim Hormone (TSH) 2.43 uIU/mL (0.358-3.74)
[2019-06-16 13:19] LABS: Basophil 1 % (0-1); Eosinophil 7 % (0-5); Lymphocyte 36 % (19-41); Monocyte 14 % (0-10); Neutrophil-Segmented 42 % (47-70); Platelet Estimate ADEQUATE (ADEQ); Red Cell Morphology NORM C+C NORMAL (NORM C&C); Total Cells Counted 100 (MANUAL DIFF)
[2019-06-20 10:25] LABS: Pathologist Review Reviewed
== END ==
PROVIDERS: PCP Family Medicine Geriatric Medicine; Visit Provider Family Medicine Geriatric Medicine
DX: I10 Essential (primary) hypertension (principal); E11.9 Type 2 diabetes mellitus without complications; E55.9 Vitamin D deficiency, unspecified
CPT/HCPCS: 36415; 80053; 82306; 84443; 85025

== ENCOUNTER → 2019-09-15 11:01 | Outpatient (CLI) | payer OTHER, SELFPAY ==
[2019-02-16 12:08] VITALS: BMI 33.6
[2019-09-15 12:35] LABS: Absolute Lymphocyte Count 1.85 X10^3/uL (0.83-4.51); Absolute Neutrophil Count 3.1 X10^3/uL (2.0-7.7); Basophil# 0.02 X10^3/uL; Basophil% 0.3 % (0-1); Eosinophil# 0.17 X10^3/uL; Eosinophils% 2.8 % (0-5); Hematocrit 36.2 % (40-54); Hemoglobin 11.4 g/dL (13.0-16.5); Lymphocyte # 1.85 X10^3/ul (4.0); Lymphocyte % 30.2 % (19-41); Mean Corp Hgb Conc 31.5 g/dL (32-36); Mean Corpuscular Hgb 26.4 pg (27.0-32.0); Mean Corpuscular Volume 83.8 fL (80-94); Mean Platelet Vol. 11.4 fl (6.2-12.0); Monocyte# 0.65 X10^3/uL; Monocyte% 10.6 % (0-10); NRBC Flagged by Analyzer 0 % (0-5); Neutrophil # 3.12 X10^3/uL (2.7-7.7); Neutrophil % 50.9 % (47-70); POSITIVE COUNT YES; POSITIVE MORPHOLOGY YES; Platelet Count 183 K/mm3 (150-450); RBC Distribution Width SD 44.9 fl (35.1-43.9); Red Blood Count 4.32 M/mm3 (4.6-6.2); White Blood Count 6.1 K/mm3 (4.4-11.0)
[2019-09-15 12:42] LABS: Differential Indicated SCAN CRITERIA MET
[2019-09-15 12:57] LABS: Vitamin D,25 Hydroxy 36.6 ng/mL
[2019-09-15 13:07] LABS: ALB/GLOB Ratio 0.8 RATIO (0.9-2.4); AST(SGOT) 23 U/L (15-37); Alanine Aminotransfer ALT/SGPT 25 U/L (16-61); Albumin, Serum 3.1 g/dL (3.2-5.0); Alkaline Phosphatase 58 U/L (45-117); Anion Gap 8 (5-15); BUN 28 mg/dL (7-18); BUN/Creat Ratio 14.8 RATIO (10-20); Calcium,Total 8.5 mg/dL (8.5-10.1); Chloride 107 mmol/L (98-107); Creatinine, Serum 1.89 mg/dL (0.70-1.30); EST Glomerular Filtration Rate 37 mL/min (>60); Est Glom Filt Rate - Afr Amer 45 mL/min (>60); Globulin 3.7 g/dL (2.2-4.2); Glucose 162 mg/dL (74-106); Potassium 4.3 mmol/L (3.5-5.1); Protein, Total 6.8 g/dL (6.4-8.2); Sodium Level 141 mmol/L (136-145); Thyroid Stim Hormone (TSH) 2.42 uIU/mL (0.358-3.74)
== END ==
PROVIDERS: PCP Family Medicine Geriatric Medicine; Visit Provider Family Medicine Geriatric Medicine
DX: E11.9 Type 2 diabetes mellitus without complications (principal); E55.9 Vitamin D deficiency, unspecified; I10 Essential (primary) hypertension
CPT/HCPCS: 36415; 80053; 82306; 84443; 85025

== ENCOUNTER → 2019-12-14 13:36 | Outpatient (CLI) | payer OTHER, SELFPAY ==
[2019-02-16 12:08] VITALS: BMI 33.6
[2019-12-14 16:38] LABS: Hematocrit 38.1 % (40-54); Hemoglobin 12.2 g/dL (13.0-16.5); Mean Corpuscular Hgb 26.1 pg (27.0-32.0); Mean Corpuscular Volume 81.4 fL (80-94); Mean Platelet Vol. 11.8 fl (6.2-12.0); POSITIVE COUNT YES; POSITIVE DIFFERENTIAL YES; POSITIVE MORPHOLOGY YES; Platelet Count 216 K/mm3 (150-450); RBC Distribution Width CV 13.5 % (11.6-14.6); RBC Distribution Width SD 39.4 fl (35.1-43.9); Red Blood Count 4.68 M/mm3 (4.6-6.2)
[2019-12-14 16:40] LABS: Differential Indicated MANUAL DIFF
[2019-12-14 17:00] LABS: Vitamin D,25 Hydroxy 31.4 ng/mL
[2019-12-14 17:09] LABS: ALB/GLOB Ratio 0.8 RATIO (0.9-2.4); AST(SGOT) 28 U/L (15-37); Alanine Aminotransfer ALT/SGPT 26 U/L (16-61); Albumin, Serum 2.9 g/dL (3.2-5.0); Alkaline Phosphatase 66 U/L (45-117); Anion Gap 6 (5-15); BUN 29 mg/dL (7-18); BUN/Creat Ratio 16.2 RATIO (10-20); Calcium,Total 8.4 mg/dL (8.5-10.1); Chloride 108 mmol/L (98-107); Creatinine, Serum 1.79 mg/dL (0.70-1.30); EST Glomerular Filtration Rate 40 mL/min (>60); Est Glom Filt Rate - Afr Amer 48 mL/min (>60); Globulin 3.6 g/dL (2.2-4.2); Glucose 176 mg/dL (74-106); Protein, Total 6.5 g/dL (6.4-8.2); Sodium Level 139 mmol/L (136-145)
[2019-12-14 17:10] LABS: Eosinophil 2 % (0-5); Lymphocyte 50 % (19-41); Monocyte 13 % (0-10); Neutrophil-Band 3 % (0-5); Neutrophil-Segmented 32 % (47-70); Total Cells Counted 100 (MANUAL DIFF)
[2019-12-14 17:11] LABS: Platelet Estimate ADEQUATE (ADEQ); Red Cell Morphology NORM C+C NORMAL (NORM C&C)
[2019-12-14 17:12] LABS: Absolute Neutrophil Count 1.1 X10^3/uL (2.0-7.7)
[2019-12-15 12:34] LABS: Pathologist Review Reviewed
== END ==
PROVIDERS: PCP Family Medicine Geriatric Medicine; Visit Provider Family Medicine Geriatric Medicine
DX: E11.9 Type 2 diabetes mellitus without complications (principal); E55.9 Vitamin D deficiency, unspecified; I10 Essential (primary) hypertension
CPT/HCPCS: 36415; 80053; 82306; 84443; 85025

== ENCOUNTER → 2020-04-29 14:45 | Outpatient (CLI) | payer OTHER, SELFPAY ==
[2019-02-16 12:08] VITALS: BMI 33.6
[2020-04-29 17:27] LABS: Hematocrit 38.2 % (40-54); Hemoglobin 12.1 g/dL (13.0-16.5); Mean Corp Hgb Conc 31.7 g/dL (32-36); Mean Corpuscular Hgb 25.1 pg (27.0-32.0); Mean Corpuscular Volume 79.1 fL (80-94); Mean Platelet Vol. 11.7 fl (6.2-12.0); POSITIVE COUNT YES; POSITIVE DIFFERENTIAL YES; POSITIVE MORPHOLOGY YES; Platelet Count 183 K/mm3 (150-450); RBC Distribution Width SD 40.3 fl (35.1-43.9); Red Blood Count 4.83 M/mm3 (4.6-6.2); White Blood Count 2.2 K/mm3 (4.4-11.0)
[2020-04-29 17:40] LABS: ALB/GLOB Ratio 0.7 RATIO (0.9-2.4); AST(SGOT) 23 U/L (15-37); Alanine Aminotransfer ALT/SGPT 23 U/L (16-61); Albumin, Serum 2.7 g/dL (3.2-5.0); Alkaline Phosphatase 66 U/L (45-117); Anion Gap 6 (5-15); BUN 39 mg/dL (7-18); BUN/Creat Ratio 13.9 RATIO (10-20); Calcium,Total 8.7 mg/dL (8.5-10.1); Chloride 108 mmol/L (98-107); Creatinine, Serum 2.81 mg/dL (0.70-1.30); EST Glomerular Filtration Rate 24 mL/min (>60); Est Glom Filt Rate - Afr Amer 29 mL/min (>60); Globulin 3.8 g/dL (2.2-4.2); Glucose 244 mg/dL (74-106); Potassium 5.2 mmol/L (3.5-5.1); Protein, Total 6.5 g/dL (6.4-8.2); Sodium Level 138 mmol/L (136-145)
[2020-04-29 17:54] LABS: Differential Indicated MANUAL DIFF
[2020-04-29 18:52] LABS: Eosinophil 2 % (0-5); Lymphocyte 59 % (19-41); Metamyelocyte 1 % (0-1); Monocyte 4 % (0-10); Myelocyte 5 (0-0); Neutrophil-Band 2 % (0-5); Neutrophil-Segmented 27 % (47-70)
[2020-04-29 18:53] LABS: Absolute Lymphocyte Count 1.31 X10^3/uL (0.83-4.51); Absolute Neutrophil Count 0.6 X10^3/uL (2.0-7.7)
[2020-04-29 18:54] LABS: Atypical Lymphocyte 2+ %; Platelet Estimate ADEQUATE (ADEQ); Red Cell Morphology NORM C+C NORMAL (NORM C&C)
[2020-04-30 12:25] LABS: Pathologist Review Reviewed
== END ==
PROVIDERS: PCP Family Medicine Geriatric Medicine; Visit Provider Family Medicine Geriatric Medicine
DX: E11.9 Type 2 diabetes mellitus without complications (principal); E55.9 Vitamin D deficiency, unspecified; I10 Essential (primary) hypertension
CPT/HCPCS: 36415; 80053; 82306; 84443; 85025

== ENCOUNTER → 2020-09-13 13:23 | Outpatient (CLI) | payer OTHER, SELFPAY ==
[2019-02-16 12:08] VITALS: BMI 33.6
[2020-09-13 13:32] VITALS: BP 144/53; PULSE 66; RESP 16; TEMP 36.5; O2SAT 97; BMI 32.6
== END ==
PROVIDERS: PCP Family Medicine Geriatric Medicine
DX: T80.211A Bloodstream infection due to central venous catheter, initial encounter (principal)
CPT/HCPCS: 96365; J0878; J3490

== ENCOUNTER 2020-09-15 13:39 | Outpatient (CLI) | payer OTHER, SELFPAY ==
[2019-02-16 12:08] VITALS: BMI 33.6
[2020-09-13 13:32] VITALS: BMI 32.6
[2020-09-15] MEDS: 0.9% Saline Lock 10 ML Syringe IV ×2 (13:45→14:59)
[2020-09-15 14:58] VITALS: BP 160/64; PULSE 74; RESP 18; TEMP 36.7; O2SAT 95
== END 2020-09-15 14:55 ==
LOC: MEDOUTP 13:41 → MS3 13:42
PROVIDERS: PCP Family Medicine Geriatric Medicine
DX: T80.211A Bloodstream infection due to central venous catheter, initial encounter (principal)
CPT/HCPCS: 96365; J0878; J7050; A4216; J3490

== ENCOUNTER → 2020-09-17 13:40 | Outpatient (CLI) | payer OTHER, SELFPAY ==
[2019-02-16 12:08] VITALS: BMI 33.6
[2020-09-13 13:32] VITALS: BMI 32.6
[2020-09-17 13:50] VITALS: BP 140/66; PULSE 74; RESP 16; TEMP 35.8; O2SAT 97; BMI 33.4
[2020-09-17] MEDS: 0.9% Saline Lock 10 ML Syringe IV ×3 (13:56→15:16)
[2020-09-17 14:24] LABS: Hematocrit 29.2 % (40-54); Hemoglobin 8.8 g/dL (13.0-16.5); Mean Corp Hgb Conc 30.1 g/dL (32-36); Mean Corpuscular Hgb 24.9 pg (27.0-32.0); Mean Corpuscular Volume 82.5 fL (80-94); Mean Platelet Vol. 10.1 fl (6.2-12.0); POSITIVE COUNT YES; POSITIVE DIFFERENTIAL YES; POSITIVE MORPHOLOGY YES; Platelet Count 215 K/mm3 (150-450); RBC Distribution Width CV 16.7 % (11.6-14.6); RBC Distribution Width SD 50.4 fl (35.1-43.9); Red Blood Count 3.54 M/mm3 (4.6-6.2); White Blood Count 2.3 K/mm3 (4.4-11.0)
[2020-09-17 14:25] LABS: Differential Indicated MANUAL DIFF
[2020-09-17 14:39] LABS: CPK Total, Creatine Kinase 97 U/L (39-308); Creatinine, Serum 4.32 mg/dL (0.70-1.30); EST Glomerular Filtration Rate 14 mL/min (>60); Est Glom Filt Rate - Afr Amer 17 mL/min (>60); Estimated Creatinine Clearance 14.73 ml/min
[2020-09-17 14:47] LABS: Eosinophil 13 % (0-5); Lymphocyte 36 % (19-41); Metamyelocyte 2 % (0-1); Monocyte 16 % (0-10); Neutrophil-Segmented 33 % (47-70); Total Cells Counted 100 (MANUAL DIFF)
[2020-09-17 14:48] LABS: Hypochromasia 1+; Platelet Estimate ADEQUATE (ADEQ)
[2020-09-17 14:49] LABS: Absolute Lymphocyte Count 0.83 X10^3/uL (0.83-4.51); Absolute Neutrophil Count 0.8 X10^3/uL (2.0-7.7)
[2020-09-17 15:32] VITALS: BP 135/60; PULSE 68; RESP 16; TEMP 35.9; O2SAT 97
[2020-09-17 22:22] LABS: Xtra Tube EP Lab EXTRA TUBE
[2020-09-18 13:14] LABS: Pathologist Review Reviewed
== END ==
PROVIDERS: PCP Family Medicine Geriatric Medicine
DX: T80.211A Bloodstream infection due to central venous catheter, initial encounter (principal)
CPT/HCPCS: 96365; 36592; 82550; 82565; 85025; J0878; J7050; A4216; J3490

== ENCOUNTER → 2020-09-19 13:29 | Outpatient (CLI) | payer OTHER, SELFPAY ==
[2019-02-16 12:08] VITALS: BMI 33.6
[2020-09-17 13:50] VITALS: BMI 33.4
[2020-09-19 13:49] VITALS: BP 159/63; PULSE 72; RESP 16; TEMP 36.4; O2SAT 97; BMI 33.4
[2020-09-19 14:53] VITALS: BP 151/61; PULSE 73; RESP 16; TEMP 36.6
== END ==
PROVIDERS: PCP Family Medicine Geriatric Medicine
DX: T80.211A Bloodstream infection due to central venous catheter, initial encounter (principal)
CPT/HCPCS: 96365; J0878; J7050; A4216; J3490

== ENCOUNTER 2020-09-21 14:06 | Outpatient (CLI) | payer OTHER, SELFPAY ==
[2019-02-16 12:08] VITALS: BMI 33.6
[2020-09-19 13:49] VITALS: BMI 33.4
[2020-09-21 14:23] VITALS: BP 142/64; PULSE 73; RESP 16; TEMP 36.4; O2SAT 100
[2020-09-21] MEDS: 0.9% Saline Lock 10 ML Syringe IV (14:53)
== END 2020-09-21 14:59 ==
LOC: MEDOUTP 14:07 → MS3 14:07
PROVIDERS: PCP Family Medicine Geriatric Medicine
DX: T80.211A Bloodstream infection due to central venous catheter, initial encounter (principal)
CPT/HCPCS: 96365; J0878; A4216; J3490

== ENCOUNTER → 2020-09-23 13:34 | Outpatient (CLI) | payer OTHER, SELFPAY ==
[2020-09-19 13:49] VITALS: BMI 33.4
[2020-09-23 14:25] LABS: Absolute Lymphocyte Count 0.91 X10^3/uL (0.83-4.51); Absolute Neutrophil Count 0.6 X10^3/uL (2.0-7.7); Basophil# 0.02 X10^3/uL; Basophil% 0.9 % (0-1); Eosinophil# 0.27 X10^3/uL; Eosinophils% 11.9 % (0-5); Hematocrit 30.1 % (40-54); Hemoglobin 9.3 g/dL (13.0-16.5); Lymphocyte # 0.91 X10^3/ul (0.83-4.51); Lymphocyte % 40.1 % (19-41); Mean Corp Hgb Conc 30.9 g/dL (32-36); Mean Corpuscular Hgb 25.3 pg (27.0-32.0); Mean Corpuscular Volume 81.8 fL (80-94); Mean Platelet Vol. 10.5 fl (6.2-12.0); Monocyte# 0.32 X10^3/uL; Monocyte% 14.1 % (0-10); NRBC Flagged by Analyzer 0 % (0-5); Neutrophil # 0.64 X10^3/uL (2.7-7.7); Neutrophil % 28.2 % (47-70); POSITIVE DIFFERENTIAL YES; POSITIVE MORPHOLOGY YES; Platelet Count 206 K/mm3 (150-450); RBC Distribution Width CV 16.6 % (11.6-14.6); RBC Distribution Width SD 49.3 fl (35.1-43.9); Red Blood Count 3.68 M/mm3 (4.6-6.2); White Blood Count 2.3 K/mm3 (4.4-11.0)
[2020-09-23 14:44] LABS: ALB/GLOB Ratio 0.7 RATIO (0.9-2.4); AST(SGOT) 20 U/L (15-37); Alanine Aminotransfer ALT/SGPT 21 U/L (16-61); Albumin, Serum 2.7 g/dL (3.2-5.0); Alkaline Phosphatase 110 U/L (45-117); Anion Gap 11 (5-15); BUN 61 mg/dL (7-18); BUN/Creat Ratio 16.1 RATIO (10-20); CPK Total, Creatine Kinase 79 U/L (39-308); Calcium,Total 8.1 mg/dL (8.5-10.1); Chloride 112 mmol/L (98-107); Creatinine, Serum 3.78 mg/dL (0.70-1.30); EST Glomerular Filtration Rate 17 mL/min (>60); Est Glom Filt Rate - Afr Amer 20 mL/min (>60); Globulin 4.1 g/dL (2.2-4.2); Glucose 205 mg/dL (74-106); Potassium 5.5 mmol/L (3.5-5.1); Protein, Total 6.8 g/dL (6.4-8.2); Sodium Level 141 mmol/L (136-145)
[2020-09-23] MEDS: 0.9% NaCl IVPB Med Flush (250 mL) 15 ML IV (14:51)
[2020-09-23 15:20] VITALS: BP 165/75; PULSE 79; RESP 16; TEMP 36; O2SAT 99
[2020-09-23 15:21] LABS: Differential Indicated SCAN CRITERIA MET
[2020-09-23 15:22] LABS: Platelet Estimate ADEQUATE (ADEQ)
[2020-09-23 15:23] LABS: Anisocytosis 1+; Red Cell Morphology N CHROM NORMAL (NORM C&C); Schistocytes RARE
[2020-09-23 22:22] LABS: Xtra Tube EP Lab EXTRA TUBE
[2020-09-24 12:51] LABS: Pathologist Review Reviewed
== END ==
PROVIDERS: PCP Family Medicine Geriatric Medicine
DX: T80.211A Bloodstream infection due to central venous catheter, initial encounter (principal)
CPT/HCPCS: 96365; 80053; 82550; 85025; J0878; J7050; A4216; J3490

== ENCOUNTER → 2020-09-25 09:48 | Outpatient (CLI) | payer OTHER, SELFPAY ==
[2019-02-16 12:08] VITALS: BMI 33.6
[2020-09-19 13:49] VITALS: BMI 33.4
[2020-09-25 09:57] VITALS: BP 153/74; PULSE 84; RESP 16; TEMP 36.3; O2SAT 100; BMI 33.4
[2020-09-25] MEDS: 0.9% NaCl IVPB Med Flush (250 mL) 15 ML IV (09:59)
[2020-09-25 10:55] VITALS: BP 148/68; PULSE 80; TEMP 36.3; O2SAT 98
== END ==
PROVIDERS: PCP Family Medicine Geriatric Medicine
DX: T80.211A Bloodstream infection due to central venous catheter, initial encounter (principal)
CPT/HCPCS: 96365; J0878; J7050; A4216; J3490

== ENCOUNTER → 2020-09-27 13:43 | Outpatient (CLI) | payer OTHER, SELFPAY ==
[2019-02-16 12:08] VITALS: BMI 33.6
[2020-09-25 09:57] VITALS: BMI 33.4
[2020-09-27 13:48] VITALS: BP 168/73; PULSE 72; RESP 16; TEMP 36; O2SAT 100; BMI 33.4
[2020-09-27] MEDS: 0.9% NaCl IVPB Med Flush (250 mL) 15 ML IV (13:54)
[2020-09-27 14:53] VITALS: BP 160/71; PULSE 77; RESP 16; TEMP 36.1; O2SAT 100
== END ==
PROVIDERS: PCP Family Medicine Geriatric Medicine
DX: T80.211A Bloodstream infection due to central venous catheter, initial encounter (principal)
CPT/HCPCS: 96365; J0878; J7050; A4216; J3490

== ENCOUNTER 2020-09-29 13:43 | Outpatient (CLI) | payer OTHER, SELFPAY ==
[2019-02-16 12:08] VITALS: BMI 33.6
[2020-09-27 13:48] VITALS: BMI 33.4
[2020-09-29] MEDS: 0.9% Saline Lock 10 ML Syringe IV ×2 (13:50→14:50)
[2020-09-29 13:53] VITALS: BP 145/58; PULSE 73; RESP 18; O2SAT 100
== END 2020-09-29 14:55 | disposition home or self-care (01) ==
LOC: MEDOUTP 13:44 → MS3 13:45
PROVIDERS: PCP Family Medicine Geriatric Medicine
DX: I80.9 Phlebitis and thrombophlebitis of unspecified site (principal)
CPT/HCPCS: 96365; J0878; J7050; A4216; J3490

== ENCOUNTER → 2020-10-22 10:30 | Outpatient (CLI) | payer OTHER, SELFPAY ==
[2020-10-09 11:35] VITALS: BMI 31.5
== END ==
PROVIDERS: PCP Family Medicine Geriatric Medicine; Referring Provider Dermatology; Visit Provider Dermatology
DX: L02.212 Cutaneous abscess of back [any part, except buttock and flank] (principal); L08.89 Other specified local infections of the skin and subcutaneous tissue
CPT/HCPCS: 87070; 87077; 87186; 87205

== ENCOUNTER → 2020-10-24 15:03 | Outpatient (CLI) | payer OTHER, SELFPAY ==
[2020-10-24 14:29] VITALS: BMI 31.6
[2020-10-24 15:25] VITALS: BP 150/66; PULSE 66; RESP 16; TEMP 36.3; O2SAT 98; BMI 31.7
[2020-10-24] MEDS: 0.9% NaCl Peripheral Flush Adult/Peds IV (15:41)
[2020-10-24] MEDS: 0.9% NaCl IVPB Med Flush (250 mL) 15 ML IV (15:41)
[2020-10-24 16:42] VITALS: BP 127/58; PULSE 96; RESP 16; TEMP 36.3
== END ==
PROVIDERS: PCP Family Medicine Geriatric Medicine
DX: L02.91 Cutaneous abscess, unspecified (principal)
CPT/HCPCS: 96365; J7050; A4216

== ENCOUNTER → 2020-10-25 13:21 | Outpatient (CLI) | payer OTHER, SELFPAY ==
[2020-10-24 14:29] VITALS: BMI 31.6
[2020-10-24 15:25] VITALS: BMI 31.7
[2020-10-25] MEDS: 0.9% NaCl IVPB Med Flush (250 mL) 15 ML IV (13:49)
[2020-10-25] MEDS: 0.9% NaCl Peripheral Flush Adult/Peds IV ×2 (13:49→15:00)
[2020-10-25 14:01] VITALS: BP 149/59; PULSE 60; RESP 16; TEMP 36.3; O2SAT 97; BMI 31.7
[2020-10-25 14:58] VITALS: BP 147/58; PULSE 62; RESP 16; TEMP 36.3; O2SAT 97
== END ==
PROVIDERS: PCP Family Medicine Geriatric Medicine
DX: L02.91 Cutaneous abscess, unspecified (principal)
CPT/HCPCS: 96365; J7050; A4216

== ENCOUNTER 2020-10-26 13:15 | Outpatient (CLI) | payer OTHER, SELFPAY ==
[2020-10-24 15:25] VITALS: BMI 31.7
[2020-10-25 14:01] VITALS: BMI 31.7
[2020-10-26] MEDS: 0.9% Saline Lock 10 ML Syringe IV ×2 (13:18→14:20)
[2020-10-26 13:42] VITALS: BP 144/52; PULSE 68; RESP 18; TEMP 37.1; O2SAT 99
== END 2020-10-26 13:48 | disposition home or self-care (01) ==
LOC: MEDOUTP 13:17 → MS3 13:19
PROVIDERS: PCP Family Medicine Geriatric Medicine; Referring Provider Internal Medicine Infectious Disease; Visit Provider Internal Medicine Infectious Disease
DX: L02.91 Cutaneous abscess, unspecified (principal)
CPT/HCPCS: 96365; J7050; A4216

== ENCOUNTER 2020-10-27 13:04 | Outpatient (CLI) | payer OTHER, SELFPAY ==
[2020-10-24 15:25] VITALS: BMI 31.7
[2020-10-25 14:01] VITALS: BMI 31.7
[2020-10-27 13:20] VITALS: BP 136/65; PULSE 67; RESP 18; TEMP 36.9; O2SAT 100
[2020-10-27] MEDS: 0.9% Saline Lock 10 ML Syringe IV (14:29)
== END 2020-10-27 14:00 | disposition home or self-care (01) ==
LOC: MEDOUTP 13:05 → MS3 13:06
PROVIDERS: PCP Family Medicine Geriatric Medicine; Referring Provider Internal Medicine Infectious Disease; Visit Provider Internal Medicine Infectious Disease
DX: L02.91 Cutaneous abscess, unspecified (principal)
CPT/HCPCS: 96365; A4216

== ENCOUNTER → 2020-10-28 14:02 | Outpatient (CLI) | payer OTHER, SELFPAY ==
[2020-10-24 15:25] VITALS: BMI 31.7
[2020-10-25 14:01] VITALS: BMI 31.7
[2020-10-28] MEDS: 0.9% NaCl Peripheral Flush Adult/Peds IV ×2 (14:10→15:07)
[2020-10-28] MEDS: 0.9% NaCl IVPB Med Flush (250 mL) 15 ML IV (14:10)
[2020-10-28 14:17] VITALS: BP 142/68; PULSE 70; RESP 16; TEMP 35.9; O2SAT 99; BMI 31.6
[2020-10-28 14:58] VITALS: BP 149/68; PULSE 70; RESP 16; TEMP 36
== END ==
PROVIDERS: PCP Family Medicine Geriatric Medicine; Referring Provider Internal Medicine Infectious Disease; Visit Provider Internal Medicine Infectious Disease
DX: L02.91 Cutaneous abscess, unspecified (principal)
CPT/HCPCS: 96365; J7050; A4216

== ENCOUNTER → 2020-10-29 12:54 | Outpatient (CLI) | payer OTHER, SELFPAY ==
[2020-10-25 14:01] VITALS: BMI 31.7
[2020-10-28 14:17] VITALS: BMI 31.6
[2020-10-29 13:06] VITALS: BP 147/61; PULSE 70; RESP 16; TEMP 36.3; O2SAT 99; BMI 31.6
[2020-10-29] MEDS: 0.9% NaCl Peripheral Flush Adult/Peds IV (13:19)
[2020-10-29] MEDS: 0.9% NaCl IVPB Med Flush (250 mL) 15 ML IV (13:19)
[2020-10-29 14:23] VITALS: BP 156/70; PULSE 70; RESP 16
== END ==
PROVIDERS: PCP Family Medicine Geriatric Medicine; Referring Provider Internal Medicine Infectious Disease; Visit Provider Internal Medicine Infectious Disease
DX: L02.91 Cutaneous abscess, unspecified (principal)
CPT/HCPCS: 96365; J7050; A4216

== ENCOUNTER → 2020-10-30 13:02 | Outpatient (CLI) | payer OTHER, SELFPAY ==
[2020-10-25 14:01] VITALS: BMI 31.7
[2020-10-29 13:06] VITALS: BMI 31.6
[2020-10-30] MEDS: 0.9% NaCl IVPB Med Flush (250 mL) 15 ML IV (13:16)
[2020-10-30] MEDS: 0.9% NaCl Peripheral Flush Adult/Peds IV (13:18)
== END ==
PROVIDERS: PCP Family Medicine Geriatric Medicine; Referring Provider Internal Medicine Infectious Disease; Visit Provider Internal Medicine Infectious Disease
DX: L02.91 Cutaneous abscess, unspecified (principal)
CPT/HCPCS: 96365; J7050; A4216

== ENCOUNTER → 2020-10-31 13:01 | Outpatient (CLI) | payer OTHER, SELFPAY ==
[2020-10-29 13:06] VITALS: BMI 31.6
[2020-10-30 13:07] VITALS: BMI 31.6
[2020-10-31] MEDS: 0.9% NaCl Peripheral Flush Adult/Peds IV (13:22)
[2020-10-31] MEDS: 0.9% NaCl IVPB Med Flush (250 mL) 15 ML IV (13:22)
[2020-10-31 13:30] VITALS: BP 113/57; PULSE 63; RESP 16; TEMP 36.4; O2SAT 99; BMI 31.6
[2020-10-31 14:28] VITALS: BP 151/59; PULSE 64; RESP 16; TEMP 36.5; O2SAT 100
== END ==
PROVIDERS: PCP Family Medicine Geriatric Medicine; Referring Provider Internal Medicine Infectious Disease; Visit Provider Internal Medicine Infectious Disease
DX: L02.91 Cutaneous abscess, unspecified (principal)
CPT/HCPCS: 96365; J7050; A4216

== ENCOUNTER → 2020-11-01 13:19 | Outpatient (CLI) | payer OTHER, SELFPAY ==
[2020-10-29 13:06] VITALS: BMI 31.6
[2020-10-31 13:30] VITALS: BMI 31.6
[2020-11-01] MEDS: 0.9% NaCl Peripheral Flush Adult/Peds IV (13:29)
[2020-11-01] MEDS: 0.9% NaCl IVPB Med Flush (250 mL) 15 ML IV (13:29)
[2020-11-01 13:31] VITALS: BP 142/70; PULSE 68; RESP 16; TEMP 36.1; O2SAT 99; BMI 31.6
[2020-11-01 14:22] VITALS: BP 155/69; PULSE 72; RESP 16; TEMP 36.1; O2SAT 100
== END ==
PROVIDERS: PCP Family Medicine Geriatric Medicine; Referring Provider Internal Medicine Infectious Disease; Visit Provider Internal Medicine Infectious Disease
DX: L02.91 Cutaneous abscess, unspecified (principal)
CPT/HCPCS: 96365; J7050; A4216

== ENCOUNTER 2021-03-10 14:39 | Inpatient (IN) | payer OTHER, MEDICARE, SELFPAY ==
[2021-03-10 14:41] VITALS: BP 171/59; PULSE 40; RESP 18; TEMP 36; O2SAT 98; BMI 33.0
--- NOTE | 2021-03-10 14:48 | EKG12_ITS ---
Test Reason : PALOMA Blood Pressure : / mmHG Vent. Rate : 040 BPM Atrial Rate : 079 BPM P-R Int : 000 ms QRS Dur : 136 ms QT Int : 514 ms P-R-T Axes : 050 -59 047 degrees QTc Int : 418 ms Sinus rhythm with 2:1 AV block Right bundle branch block Left anterior fascicular block Bifascicular block Abnormal ECG Confirmed by EL JOSEPH, RENATO ([id number]), desk editor ERON MOTLEY ([id number]) on 03/11/2021 10:21:54 AM Referred By: STEVEN Confirmed By:RENATO GALLEGOS MD
--- NOTE | 2021-03-10 16:48 | RAD_ITS ---
STUDY: XR Chest 1 View 03/10/2021 4:54 PM REASON FOR EXAM: Male, 75 years old. CHEST PAIN low HR COMPARISON: 10/24/2018 TECHNIQUE: XR Chest 1 View FINDINGS: There is no demonstrated pleural abnormality. Enlarged heart size. Normal mediastinum. Normal yoel. Prominent appearing increased interstitial lung markings. Normal visualized pulmonary arteries. There is atherosclerotic calcification of the aortic arch with tortuosity. There are diffuse degenerative changes of the visualized thoracic spine. There is degenerative osteoarthritis of the bilateral shoulders. There is no demonstrated abnormality of the visualized soft tissue structures of the upper abdomen. RAD/Chest 1 View (Portable) IMPRESSION: There are no acute findings. Electronically Signed: Earnest Anthony MD at 17:04 EST , Service support ,
--- NOTE | 2021-03-10 17:30 | EKG12_ITS ---
Test Reason : REPEAT Blood Pressure : / mmHG Vent. Rate : 040 BPM Atrial Rate : 080 BPM P-R Int : 194 ms QRS Dur : 138 ms QT Int : 492 ms P-R-T Axes : 039 -63 043 degrees QTc Int : 400 ms Sinus rhythm with 2:1 AV block Right bundle branch block Left anterior fascicular block Bifascicular block Abnormal ECG Confirmed by EL JOSEPH, RENATO ([id number]), digital editor ERON MOTLEY ([id number]) on 03/11/2021 10:19:50 AM Referred By: JESSICA Confirmed By:RENATO GALLEGOS MD
--- NOTE | 2021-03-10 17:30 | EX.ED.DYSGE1 ---
HPI History of Present Illness Chief Complaint: General Illness Detail of Chief Complaint: Bradycardia Informant: patient Onset/Context/Timing Onset: Today Context: Gradual Onset Timing: Continuous Current Severity: Mild Maximum Severity: Mild Narrative Narrative: 75-year-old male was at the oncology center today and prior to receiving his retroquit that he gets every 2 weeks for low blood counts after a renal transplant they took his vital signs and his heart rate was around 40. States that several weeks ago his heart rate was normal. He is on antihypertensive medications. Has taken them normally. This at times he just feels tired. He denies being lightheaded or dizzy. He denies any cardiac history. Patient has also has a history of diabetes. Prior similar symptoms: No Recent Illness/Hospitalization: No PFSH PFSH Medical History Anemia ARF (acute renal failure) Central line complication Chronic kidney disease, stage IV (severe) DM2 (diabetes mellitus, type 2) HTN (hypertension) Hyperlipidemia Hypertensive urgency Kidney transplant complication Pre-syncope Type 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 Home Medications atorvastatin 40 mg PO QHS 06/23/17 [History Last Taken 10/23/18] dulaglutide 1.5 mg SQ FR 06/23/17 [History Last Taken 10/21/18] amlodipine 5 mg PO DAILY 10/24/18 [History Last Taken 10/24/18] calcitriol 0.25 mcg PO DAILY 10/24/18 [History Last Taken 10/23/18] ferrous sulfate 325 mg PO DAILY 10/24/18 [History Last Taken 10/23/18] linagliptin 5 mg PO DAILY 10/24/18 [History Last Taken 10/23/18] warfarin [Coumadin] 4 mg PO DAILY 09/13/20 [History Last Taken Unknown] aspirin 81 mg chewable tablet 81 mg PO DAILY 10/02/20 [History Last Taken Unknown] carvedilol 12.5 mg tablet 25 mg PO BID tab 10/02/20 [History Last Taken Unknown] glimepiride 4 mg tablet 4 mg PO DAILY 10/02/20 [History Last Taken Unknown] lisinopril 2.5 mg tablet 2.5 mg PO DAILY 10/02/20 [History Last Taken Unknown] prednisone 5 mg tablet 5 mg PO DAILY 10/02/20 [History Last Taken Unknown] sodium bicarbonate 650 mg tablet 650 mg PO TID-QID PRN 10/02/20 [History Last Taken Unknown] sodium polystyrene sulfonate PO .every 72 hours g 10/02/20 [History Last Taken Unknown] sulfamethoxazole 400 mg-trimethoprim 80 mg tablet 1 tab PO DAILY 10/02/20 [History Last Taken Unknown] tacrolimus 0.5 mg capsule, immediate-release 1 mg PO DAILY cap 10/02/20 [History Last Taken Unknown] Allergy/AdvReac Type Severity Reaction Status Date / Time No Known Allergies Allergy Verified 03/10/21 14:43 Family History Father Pneumonia Mother CVA (cerebral vascular accident) Surgical History Renal transplant recipient S/P colonoscopy [place] teeth removed Social History Smoking Status: Never smoker how long ago did patient quit smokin, 0.5pk/day second hand exposure: Yes alcohol intake: current alcohol intake frequency: a few times a month substance use type: does not use ROS ROS ED ROS Narrative Patient denies recent illness other than just generalized fatigue. Review of Systems ROS Unobtainable: Denies due to encephalopathy Constitutional Constitutional ED: Denies chills or fever(s) Eyes Eyes: Denies change in vision ENT ENT ED: Denies ear pain Cardiovascular Cardiovascular: Denies chest pain Respiratory/Chest Respiratory/Chest: Denies cough or dyspnea Gastrointestinal Gastrointestinal: Denies abdominal pain, diarrhea, nausea or vomiting Genitourinary Genitourinary ED: Denies dysuria Musculoskeletal Musculoskeletal: Denies myalgias Integumentary Denies rash Neurologic Neurologic: Denies headache(s) Psychiatric Psychiatric: Denies depression Endocrine Endocrinology: Denies polyuria Allergic/Immunologic Allergic/Immunologic ED: Denies urticaria EXAM Physical Exam Narrative Exam Narrative: 72-year-old male no acute distress heart rate is 39 on the monitor but with a blood pressure 170/60. HEENT exam unremarkable no droop. Neck nontender. No JVD. Lungs clear to auscultation bilaterally. Heart regular rhythm rate about 40 3/6 systolic ejection murmur. Abdomen soft nontender. Moving all 4 extremities. No edema. Neurologically awake and alert with no focal motor deficits. Const Vital Signs: 03/10/21 14:41 03/10/21 17:14 Temperature 96.8 F L Temperature Source Temporal Pulse Rate 40 L Respiratory Rate 18 Respiratory Effort Normal Non-Labored Respiratory Pattern Normal Blood Pressure 171/59 H Blood Pressure Mean 96 Pulse Ox 98 Oxygen Delivery Method Room Air Positive well nourished and well developed; Negative for cachectic, contractures or unkempt General Appearance ED: well developed and NAD; Negative for unkempt, cachectic, contractures, cyanotic, diaphoretic or pallor Nutritional Appearance: Negative for cachectic HEENT Reports moist mucous membranes Negative for trauma Eyes PERRL and EOMs intact bilaterally Neck no lymphadenopathy, supple and no JVD General: Negative for tenderness Chest Wall inspection of chest normal and palpation of chest normal Resp normal respiratory effort and clear to auscultation bilaterally Effort and Inspection: Negative for pain with movement Auscultation: Negative for rales, rhonchi or wheezes Cardio regular rhythm, S1 normal heart sound and S2 normal heart sound Rate: bradycardia GI normal to inspection, nondistended, normoactive bowel sounds, non-tender, non-distended and no masses Inspection: Negative for abdominal distention Auscultation: normoactive bowel sounds; Negative for hyperactive bowel sounds Palpation: soft; Negative for tender, guarding or rebound tenderness present Back/Spine no CVA tenderness General Back: Negative for CVA tenderness Cervical Spine: Negative for cervical spine tenderness Thoracic Spine / Upper Back: Negative for thoracic spinal tenderness Extremity normal to inspection General Extremety ED: Negative for edema or tenderness General Extremity: Negative for edema Neuro oriented x3 and CN's II-XII intact bilaterally Sensorium / Orientation: alert; Negative for orientation impaired Motor Exam: strength 5/5 throughout Psych mental status grossly normal Appearance: Negative for unkempt Mood & Affect: Negative for depressed or tearful Skin no rashes or lesions noted, no wounds and No skin turgor normal General Skin Exam: Negative for jaundice or pallor MDM MDM MDM Narrative Medical decision making narrative: 75-year-old male with known chronic kidney disease today was bradycardic and has had a recent symptoms of feeling tired and fatigued. On the monitor is but appears to be a sinus rhythm rate about 39-40. But has a stable blood pressure with it. On EKG this appears to be a second-degree heart block type I Arabella Vega. I have already spoken to the hospitalist that all the labs return I will be admitted PCU for further evaluation and cardiology consultation. On repeat exam is doing well at 735. Lab Data Attestation: I reviewed the patient's lab results. Lab results narrative: CBC shows white count 10.3. Hemoglobin 12.8. Platelets 156. Electrolytes show potassium of 5.8. Gap at 9 BUN is 72 creatinine 2.81 glucose 237. Troponin XX and TSH 2.81. Labs: Laboratory Results - last 24 hr 03/10/21 03/10/21 17:45 17:45 WBC 10.3 RBC 5.03 Hgb 12.8 L Hct 40.6 MCV 80.7 MCH 25.4 L MCHC 31.5 L RDW Std Deviation 44.6 H RDW Coeff of Yanely 15.2 H Plt Count 156 Immature Gran % (Auto) 0.500 Neut % (Auto) 73.4 H Lymph % (Auto) 18.8 L [place] % (Auto) 5.6 Eos % (Auto) 1.5 Baso % (Auto) 0.2 Absolute Neuts (auto) 7.6 Absolute Lymphs (auto) 1.93 Nucleated RBC % 0 Sodium 142 Potassium 5.8 H Chloride 117 H Carbon Dioxide 16.0 L Anion Gap 9 BUN 72 H Creatinine 2.81 H Estim Creat Clear Calc 22.65 Est GFR (MDRD) Af Amer 29 L Est GFR (MDRD) Non-Af 24 L BUN/Creatinine Ratio 25.6 H Glucose 237 H Calcium 8.3 L Troponin I High Sens 20 TSH 2.81 Radiography Chest X-Ray - ED: 1 View, Read by ED Physician, Read by Radiologist, Heart, Lungs, Mediastinum, Bony Structures, No Acute Disease and Chronic Changes Diagnostic Testing: Clinical Impression(s) from Imaging Studies Chest X-Ray 03/10/21 16:48 IMPRESSION: There are no acute findings. Electronically Signed: Earnest Anthony MD at 17:04 EST , Service support , Chest x-ray, portable, 1 view interpreted myself shows no acute abnormality. Also interpreted radiologist and agrees. Rhythm Strip Rhythm Strip: Sinus Rhythm Rate: 40 Ectopy: None EKG Initial EKG: Attestation: I personally reviewed and interpreted this EKG as follows: Interpretation: Sinus Rhythm and No Acute Injury Pattern Comments: Sinus rhythm rate of 40 with what I believe is a second-degree type I Wenke block AV block with every other P wave conducted. The OR interval is constant. Every other P wave is nonconducted. Prior EKG from 2 years ago showed a normal sinus rhythm rate of 66 with no dysrhythmia. Does have a history of a right bundle branch block. Prior: Changed Discharge Plan Triage Chief Complaint: General Illness ED Provider: Kameron Matt Dx/Rx/DC Orders Clinical Impression: Type 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, HTN (hypertension), Bradycardia, Second degree heart block Prescriptions: No Action aspirin 81 mg tablet,chewable 81 mg PO DAILY RF: 0 glimepiride 4 mg tablet 4 mg PO DAILY RF: 0 lisinopril 2.5 mg tablet 2.5 mg PO DAILY RF: 0 prednisone 5 mg tablet 5 mg PO DAILY RF: 0 sodium bicarbonate 650 mg tablet 650 mg PO TID-QID PRNRF: 0 sodium polystyrene sulfonate Powder PO .every 72 hours RF: 0 sulfamethoxazole-trimethoprim [Bactrim] 400-80 mg tablet 1 tab PO DAILY RF: 0 tacrolimus 0.5 mg capsule 1 mg PO DAILY RF: 0 atorvastatin 40 MG tablet 40 mg PO QHS RF: 0 dulaglutide 1.5 MG/0.5 ML pen injector 1.5 mg SQ FR RF: 0 carvedilol 12.5 mg tablet 25 mg PO BID RF: 0 amlodipine 10 MG tablet 5 mg PO DAILY RF: 0 ferrous sulfate 325 MG tablet 325 mg PO DAILY RF: 0 calcitriol 0.25 MCG capsule 0.25 mcg PO DAILY RF: 0 linagliptin 5 MG tablet 5 mg PO DAILY RF: 0 warfarin [Coumadin] 4 mg Tablet 4 mg PO DAILY RF: 0 Primary Care Provider: Sy Sharma Chi Referrals: Sy Sharma Chi, MD [Primary Care Provider] - Disposition Disposition: Acute Care Hospital [facility]
[2021-03-10 17:58] LABS: Absolute Lymphocyte Count 1.93 X10^3/uL (0.83-4.51); Absolute Neutrophil Count 7.6 X10^3/uL (2.0-7.7); Basophil# 0.02 X10^3/uL; Basophil% 0.2 % (0-1); Eosinophil# 0.15 X10^3/uL; Eosinophils% 1.5 % (0-5); Hematocrit 40.6 % (40-54); Hemoglobin 12.8 g/dL (13.0-16.5); Lymphocyte # 1.93 X10^3/ul (0.83-4.51); Lymphocyte % 18.8 % (19-41); Mean Corp Hgb Conc 31.5 g/dL (32-36); Mean Corpuscular Hgb 25.4 pg (27.0-32.0); Mean Corpuscular Volume 80.7 fL (80-94); Monocyte# 0.58 X10^3/uL; Monocyte% 5.6 % (0-10); NRBC Flagged by Analyzer 0 % (0-5); Neutrophil # 7.56 X10^3/uL (2.7-7.7); Neutrophil % 73.4 % (47-70); Platelet Count 156 K/mm3 (150-450); RBC Distribution Width CV 15.2 % (11.6-14.6); RBC Distribution Width SD 44.6 fl (35.1-43.9); Red Blood Count 5.03 M/mm3 (4.6-6.2); White Blood Count 10.3 K/mm3 (4.4-11.0)
[2021-03-10 18:26] LABS: Anion Gap 9 (5-15); BUN 72 mg/dL (7-18); BUN/Creat Ratio 25.6 RATIO (10-20); Calcium,Total 8.3 mg/dL (8.5-10.1); Chloride 117 mmol/L (98-107); Creatinine, Serum 2.81 mg/dL (0.70-1.30); EST Glomerular Filtration Rate 24 mL/min (>60); Est Glom Filt Rate - Afr Amer 29 mL/min (>60); Estimated Creatinine Clearance 22.65 ml/min; Glucose 237 mg/dL (74-106); Potassium 5.8 mmol/L (3.5-5.1); Sodium Level 142 mmol/L (136-145); Thyroid Stim Hormone (TSH) 2.81 uIU/mL (0.358-3.74); Troponin-I HS 20 pg/mL (3.0-78.0)
[2021-03-10 19:51] VITALS: BP 161/60; PULSE 41; RESP 22; TEMP 36.6; O2SAT 96
--- NOTE | 2021-03-10 20:48 | PCM.HP.STD ---
HPI - General General Date of Admission: 03/10/21 HPI Narrative POLINA GANDARA, is a 75 M who presents to the emergency room due to low heart rate. Patient was at his hematology appointment receiving an infusion for his pancytopenia that he receives every 2 weeks when it was noted that his heart rate was in the high 30s and the patient complained of fatigue. He denies chest pain shortness of breath fever chills nausea vomiting or diarrhea at this time. Patient has a history of renal transplant and his creatinine is stable at his baseline. The patient is on Coreg and Norvasc as potential rate lowering medications that will be held and patient will be monitored overnight and have cardiology consulted in the morning to evaluate for symptomatic bradycardia. Patient has a murmur on exam and states some doctors have heard that before. [facility] Medical History Anemia ARF (acute renal failure) Central line complication Chronic kidney disease, stage IV (severe) DM2 (diabetes mellitus, type 2) HTN (hypertension) Hyperlipidemia Hypertensive urgency Kidney transplant complication Pre-syncope Type 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 Home Medications atorvastatin 40 mg PO QHS 06/23/17 [History Last Taken 10/23/18] dulaglutide 1.5 mg SQ FR 06/23/17 [History Last Taken 10/21/18] amlodipine 5 mg PO DAILY 10/24/18 [History Last Taken 10/24/18] calcitriol 0.25 mcg PO DAILY 10/24/18 [History Last Taken 10/23/18] ferrous sulfate 325 mg PO DAILY 10/24/18 [History Last Taken 10/23/18] linagliptin 5 mg PO DAILY 10/24/18 [History Last Taken 10/23/18] warfarin [Coumadin] 4 mg PO DAILY 09/13/20 [History Last Taken Unknown] aspirin 81 mg chewable tablet 81 mg PO DAILY 10/02/20 [History Last Taken Unknown] carvedilol 12.5 mg tablet 25 mg PO BID tab 10/02/20 [History Last Taken Unknown] glimepiride 4 mg tablet 4 mg PO DAILY 10/02/20 [History Last Taken Unknown] lisinopril 2.5 mg tablet 2.5 mg PO DAILY 10/02/20 [History Last Taken Unknown] prednisone 5 mg tablet 5 mg PO DAILY 10/02/20 [History Last Taken Unknown] sodium bicarbonate 650 mg tablet 650 mg PO TID-QID PRN 10/02/20 [History Last Taken Unknown] sodium polystyrene sulfonate PO .every 72 hours g 10/02/20 [History Last Taken Unknown] sulfamethoxazole 400 mg-trimethoprim 80 mg tablet 1 tab PO DAILY 10/02/20 [History Last Taken Unknown] tacrolimus 0.5 mg capsule, immediate-release 1 mg PO DAILY cap 10/02/20 [History Last Taken Unknown] Allergy/AdvReac Type Severity Reaction Status Date / Time No Known Allergies Allergy Verified 03/10/21 14:43 Family History Father Pneumonia Mother CVA (cerebral vascular accident) Surgical History Renal transplant recipient S/P colonoscopy [place] teeth removed Social History Smoking Status: Never smoker how long ago did patient quit smokin, 0.5pk/day second hand exposure: Yes alcohol intake: current alcohol intake frequency: a few times a month substance use type: does not use ROS Constitutional Constitutional: Reports fatigue; Denies chills or fever(s) Eyes Eyes: Denies blurry vision ENT HEENT: Denies abnormal hearing Cardiovascular Cardiovascular: Denies chest pain or edema Respiratory/Chest Respiratory/Chest: Denies cough Gastrointestinal Gastrointestinal: Denies abdominal pain Musculoskeletal Musculoskeletal: Denies back pain Neurologic Neurologic: Denies abnormal gait Psychiatric Psychiatric: Denies anxiety Vital Signs Vital Signs Vital Signs: 03/10/21 14:41 03/10/21 17:14 03/10/21 19:51 Temperature 96.8 F L 97.8 F Temperature Source Temporal Oral Pulse Rate 40 L 41 L Respiratory Rate 18 22 H Respiratory Effort Normal Non-Labored Respiratory Pattern Normal Blood Pressure 171/59 H 161/60 H Blood Pressure Mean 96 93 Pulse Ox 98 96 Oxygen Delivery Method Room Air Weight Weight: 217 lb Body Mass Index (BMI) 33.0 Physical Exam Const oriented x3 and no apparent distress General Appearance: cooperative HEENT normocephalic and head/scalp atraumatic Eyes PERRL Neck supple Lymph Lymphatic: no lymphadenopathy noted Resp normal respiratory effort and clear to auscultation bilaterally Cardio S1 normal heart sound and S2 normal heart sound Rate: bradycardia Heart Sounds: murmur GI normal to inspection, nondistended, normoactive bowel sounds Extremity no clubbing, cyanosis or edema Skin General Skin Exam: turgor normal Neuro CN's II-XII intact bilaterally Psych affect normal Results Lab / Micro Data Result Diagrams: 03/10/21 17:45 03/10/21 17:45 Labs: Laboratory Results - last 24 hr 03/10/21 17:45: WBC 10.3, RBC 5.03, Hgb 12.8 L, Hct 40.6, MCV 80.7, MCH 25.4 L, MCHC 31.5 L, RDW Std Deviation 44.6 H, RDW Coeff of Yanely 15.2 H, Plt Count 156, Immature Gran % (Auto) 0.500, Neut % (Auto) 73.4 H, Lymph % (Auto) 18.8 L, [place] % (Auto) 5.6, Eos % (Auto) 1.5, Baso % (Auto) 0.2, Absolute Neuts (auto) 7.6, Absolute Lymphs (auto) 1.93, Nucleated RBC % 0 03/10/21 17:45: Sodium 142, Potassium 5.8 H, Chloride 117 H, Carbon Dioxide 16.0 L, Anion Gap 9, BUN 72 H, Creatinine 2.81 H, Estim Creat Clear Calc 22.65, Est GFR (MDRD) Af Amer 29 L, Est GFR (MDRD) Non-Af 24 L, BUN/Creatinine Ratio 25.6 H, Glucose 237 H, Calcium 8.3 L, Troponin I High Sens 20, TSH 2.81 Rhythm Strip Rhythm Strip: Sinus Rhythm Rate: 40 Ectopy: None Radiology Impression Chest X-Ray 03/10/21 16:48 IMPRESSION: There are no acute findings. Electronically Signed: Earnest Anthony MD at 17:04 EST , Service support , Assessment & Plan Assessment/Plan (1) Bradycardia: (2) Second degree heart block: (3) Status post kidney transplant: (4) SUSAN (obstructive sleep apnea): (5) Obesity: QUALIFIERS: Obesity type: due to excess calories Obesity classification: adult class 2 (BMI 35 - 39.9) Serious obesity comorbidity presence: unspecified whether serious comorbidity present Body mass index: BMI 35.0-35.9 Qualified Code(s): E66.09 - Other obesity due to excess calories; Z68.35 - Body mass index (BMI) 35.0-35.9, adult (6) Anemia of chronic renal failure, stage 4 (severe): (7) Type 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: (8) HTN (hypertension): PLAN: 1. Symptomatic bradycardia?admit patient to progressive care unit, consult Dr. Lin, hold Coreg and amlodipine, repeat CBC BMP in the morning 2. Cardiac murmur?order echocardiogram next 3 obstructive sleep apnea?continue home CPAP 4. Diabetes?continue home medication 5. Hypertension?we will add as needed hydralazine while withholding beta-yahaira and calcium channel yahaira 6. DVT prophylaxis?SCDs due to renal failure Charges/Coding Visit Charges Inpatient E&M: 74429 Init Hosp L3
[2021-03-10 21:09] VITALS: PULSE 43; BMI 33.2
[2021-03-10 21:12] VITALS: BP 171/48; PULSE 34; RESP 20; TEMP 36.1; O2SAT 97
--- NOTE | 2021-03-10 21:43 | ECHOCS_ITS ---
Reason For Study: Murmur Procedure This was a 2D Doppler, Color Flow transthoracic echocardiogram. The study was technically difficult. Contrast injection was performed. Exam performed portable in patient room. Left Ventricle Normal LV size. Mild concentric left ventricular hypertrophy. Left ventricular systolic function is normal. The estimated ejection fraction is 70 %. No regional wall motion abnormalities noted. Right Ventricle Normal RV size. Normal systolic function. Atria Normal left atrium. Normal right atrium. Mitral Valve There is mild mitral annular calcification. Tricuspid Valve Normal tricuspid valve. Aortic Valve Trisinus/trileaflet aortic valve. Mild focal aortic valve calcification. Pulmonic Valve Normal pulmonic valve. Great Vessels Normal aortic root. The pulmonary artery is normal size. Normal inferior vena cava. Pericardium/Pleural No pericardial effusion. Medication Diluted definity 2ml given slow IV push to enhance endocardial definition. MMode/2D Measurements & Calculations LVIDd: 5.9 cm IVSd: 1.2 cm LVOT diam: 2.1 cm LVIDs: 2.9 cm LVPWd: 1.2 cm FS: 50.5 % LVOT area: 3.4 cm2 LA dimension: 4.6 cm LAV(MOD-bp): 71.3 ml LA A4 area: 24.1 cm2 LAV(MOD-bp) Indexed: 33.6 ml/m2 LAV(MOD-sp2): 59.5 ml LAV(MOD-sp4): 79.8 ml RA A4 area: 13.7 cm2 Time Measurements MV dec time: 0.20 sec Doppler Measurements & Calculations MV E max isabel: 161.3 cm/sec Ao V2 max: 310.4 cm/sec LV V1 max: 162.6 cm/sec Ao max P.6 mmHg LV V1 max P.6 mmHg Ao V2 mean: 194.4 cm/sec LV V1 mean P.6 mmHg Ao mean P.0 mmHg LV V1 mean: 97.6 cm/sec Ao V2 VTI: 67.8 cm LV V1 VTI: 37.7 cm MARTIN(I,D): 1.9 cm2 MARTIN(V,D): 1.8 cm2 SV(LVOT): 129.9 ml PA V2 max: 133.8 cm/sec ECHO/Echo Complete W/ Contrast Interpretation Summary Normal LV size. Mild concentric left ventricular hypertrophy. Left ventricular systolic function is normal. The estimated ejection fraction is 70 %. Contrast injection was performed. Ordering Physician: Boni Camp Referring Physician: Sy Sharma Chi Performed By: Howard Escamilla RCS
--- NOTE | 2021-03-10 22:00 | PCS.PANDOC ---
PANDEMIC DOCUMENTATION INITIATED: Date: 11/25/2020 Time: 190
[2021-03-10 23:10] VITALS: BP 179/69; PULSE 46; RESP 18; TEMP 36.2; O2SAT 99
[2021-03-11] VITALS (21 sets, daily range): BP systolic 109–189; BP diastolic 52–81; PULSE 38–77; RESP 16–18; TEMP 36.6–37.1; O2SAT 95–100
[2021-03-11 06:50] LABS: Absolute Lymphocyte Count 2.31 X10^3/uL (0.83-4.51); Absolute Neutrophil Count 5.3 X10^3/uL (2.0-7.7); Basophil# 0.03 X10^3/uL; Basophil% 0.3 % (0-1); Eosinophil# 0.25 X10^3/uL; Eosinophils% 2.9 % (0-5); Hematocrit 37.6 % (40-54); Hemoglobin 11.6 g/dL (13.0-16.5); Lymphocyte # 2.31 X10^3/ul (0.83-4.51); Lymphocyte % 26.5 % (19-41); Mean Corp Hgb Conc 30.9 g/dL (32-36); Mean Corpuscular Hgb 25.3 pg (27.0-32.0); Mean Corpuscular Volume 81.9 fL (80-94); Monocyte% 9.2 % (0-10); NRBC Flagged by Analyzer 0 % (0-5); Neutrophil # 5.28 X10^3/uL (2.7-7.7); Neutrophil % 60.5 % (47-70); Platelet Count 135 K/mm3 (150-450); RBC Distribution Width CV 15.5 % (11.6-14.6); RBC Distribution Width SD 45.7 fl (35.1-43.9); Red Blood Count 4.59 M/mm3 (4.6-6.2); White Blood Count 8.7 K/mm3 (4.4-11.0)
[2021-03-11 06:55] LABS: International Normalized Ratio 1.1; Prothrombin Time (Protime)PT. 13.8 SECONDS (11.7-14.9)
[2021-03-11 07:05] LABS: Anion Gap 11 (5-15); BUN 70 mg/dL (7-18); BUN/Creat Ratio 28.1 RATIO (10-20); Calcium,Total 7.9 mg/dL (8.5-10.1); Chloride 119 mmol/L (98-107); Creatinine, Serum 2.49 mg/dL (0.70-1.30); EST Glomerular Filtration Rate 27 mL/min (>60); Est Glom Filt Rate - Afr Amer 33 mL/min (>60); Estimated Creatinine Clearance 25.56 ml/min; Glucose 157 mg/dL (74-106); Potassium 5.5 mmol/L (3.5-5.1); Sodium Level 143 mmol/L (136-145)
--- NOTE | 2021-03-11 07:23 | CON.PCM.CA_ITS ---
Assessment & Plan Assessment/Plan (1) Second degree heart block: PLAN: Patient has a history of asymptomatic second-degree heart block. At this time it is determined that it is not likely to be secondary to the carvedi lol especially with a bifascicular component. An echocardiogram was performed which demonstrated preserved left ventricular systolic dysfunction. After extensive discussion with the patient, his , and their physician it was determined that we should proceed with a permanent pacemaker implantation. The risk benefits and alternatives have been explained to him and his they understand and agree to proceed. (2) Status post kidney transplant: PLAN: Patient is status post kidney transplant and will continue to follow with the nephrology service as well as the oncology service. (3) HTN (hypertension): PLAN: His blood pressure appears to be under good control at this time I would not recommend we make any changes. HPI Consult Data Date of Consult: 03/11/21 HPI Narrative HPI Narrative: POLINA GANDARA, is a 75 M who presents with a slow rate. 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 He went there yesterday and he had his heart rate taken and it was noted to be in the 40s. He was sent to the emergency room an EKG done there demonstrated evidence of a right bundle branch block, left anterior fascicular block as well as a 2-1 AV conduction defect. He denied any dizziness or diaphoresis near syncope or syncope he has complained of fatigue but he says that this has been chronic. He had been on a beta-yahaira which was held. This morning he was still noted to be in 2-1 and occasional 3-1 co nduction. He has had no previously known coronary artery disease. [facility] Medical History Anemia ARF (acute renal failure) Central line complication Chronic kidney disease, stage IV (severe) DM2 (diabetes mellitus, type 2) HTN (hypertension) Hyperlipidemia Hypertensive urgency Kidney transplant complication Pre-syncope Type 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 Home Medications atorvastatin 40 mg PO QHS 06/23/17 [History Last Taken 03/10/21 15:00] dulaglutide 1.5 mg SQ REYNA 06/23/17 [History Last Taken 03/09/21] amlodipine 5 mg PO DAILY 10/24/18 [History Last Taken 03/10/21 09:00] calcitriol 0.25 mcg PO DAILY 10/24/18 [History Last Taken 10/23/18] ferrous sulfate 325 mg PO DAILY 10/24/18 [History Last Taken 03/10/21 09:00] aspirin 81 mg chewable tablet 81 mg PO DAILY 10/02/20 [History Last Taken 03/10/21 09:00] carvedilol 12.5 mg tablet 12.5 mg PO BID tab 10/02/20 [History Last Taken 03/10/21 09:00] glimepiride 4 mg tablet 4 mg PO DAILY 10/02/20 [History Last Taken 03/10/21 09:00] lisinopril 2.5 mg tablet 5 mg PO DAILY 10/02/20 [History Last Taken 03/09/21 09:00] prednisone 5 mg tablet 5 mg PO DAILY 10/02/20 [History Last Taken 03/10/21 09:00] sodium bicarbonate 650 mg tablet 650 mg PO BID 10/02/20 [History Last Taken 03/10/21 15:00] sodium polystyrene sulfonate PO .every 72 hours PRN g 10/02/20 [History Last Taken Unknown] sulfamethoxazole 400 mg-trimethoprim 80 mg tablet 1 tab PO DAILY 10/02/20 [Hist ory Last Taken 03/10/21 09:00] tacrolimus 0.5 mg capsule, immediate-release 2 mg PO DAILY cap 10/02/20 [History Last Taken 03/10/21 15:00] mycophenolate mofetil [CellCept] 250 mg PO BID 03/11/21 [History Last Taken Unknown] nifedipine [Procardia XL] 60 mg PO DAILY 03/11/21 [History Last Taken Unknown] tacrolimus 1 mg PO QHS 03/11/21 [History Last Taken 03/10/21] Allergy/AdvReac Type Severity Reaction Status Date / Time No Known Allergies Allergy Verified 03/10/21 14:43 Family History Father Pneumonia Mother CVA (cerebral vascular accident) Surgical History Renal transplant recipient S/P colonoscopy [place] teeth removed Social History Smoking Status: Never smoker how long ago did patient quit smokin, 0.5pk/day second hand exposure: Yes alcohol intake: current alcohol intake frequency: a few times a month substance use type: does not use ROS Constitutional Constitutional: Denies fever(s) or weight loss Eyes Eyes: Reports systems reviewed and no addt'l complaints, except as documented ENT HEENT: Reports systems reviewed and no addt'l complaints, except as documented Cardiovascular Cardiovascular: Denies chest pain at rest, chest pain with activity, dyspnea at rest, dyspnea on exertion, edema, palpitations or paroxysmal nocturnal dyspnea Respiratory/Chest Respiratory/Chest: Denies dyspnea on exertion, productive cough, shortness of breath at rest or shortness of breath with exertion Gastrointestinal Gastrointestinal: Denies change in bowel habits, nausea, vomiting or weight changes Genitourinary Genitourinary: Denies difficulty urinating Musculoskeletal Musculoskeletal: Denies joint stiffness or muscle weakness Integumentary Integumentary: Denies lesions Neurologic Neurologic: Denies dizziness or syncope Psychiatric Psychiatric: Denies anxiety Endocrine Endocrinology: Denies excessive sweating or fatigue Hematologic/Lymphatic Hematologic/Lymphatic: Denies anemia Allergic/Immunologic Allergic/Immunologic: Denies seasonal rhinorrhea Physical Exam Const alert, oriented x3 and no apparent distress General Appearance: cooperative HEENT hearing grossly normal bilaterally Head and Scalp: atraumatic Eyes EOMs intact bilaterally Neck General: normal visual inspection Chest inspection of chest normal and palpation of chest normal Resp normal respiratory effort Auscultation: clear to auscultation bilaterally Cardio regular rate, regular rhythm, S1 normal heart sound and S2 normal heart sound Jugular Venous Distention: JVD GI normal to inspection, nondistended, normoactive bowel sounds Extremity normal capillary refill and no pedal edema Peripheral Pulses: Yes pulses 2+ throughout and femoral pulses present Skin no rashes or lesions noted Neuro oriented x3 and CN's II-XII intact bilaterally Psych Appearance: grossly normal and appropriate Risk Stratification Risk Stratification Applicable: No Objective Data Vital Signs: Vital Signs Temp Pulse Resp BP Pulse Ox 98.0 F 40 L 16 146/64 H 99 03/11/21 06:30 03/11/21 06:30 03/11/21 06:30 03/11/21 06:30 03/11/21 06:30 Oxygen Delivery Method Room Air Weight: 218 lb 7.649 oz Body Mass Index (BMI) 33.2 Intake & Output: Intake and Output for Last 24 Hours 03/09/21 03/10/21 03/11/21 23:59 23:59 23:59 Intake Total 120 / 120 Balance 120 / 120 Lab / Micro Data Result Diagrams: 03/11/21 05:48 03/11/21 05:48 Labs: Laboratory Results - last 24 hr 03/10/21 17:45: WBC 10.3, RBC 5.03, Hgb 12.8 L, Hct 40.6, MCV 80.7, MCH 25.4 L, MCHC 31.5 L, RDW Std Deviation 44.6 H, RDW Coeff of Yanely 15.2 H, Plt Count 156, Immature Gran % (Auto) 0.500, Neut % (Auto) 73.4 H, Lymph % (Auto) 18.8 L, [place] % (Auto) 5.6, Eos % (Auto) 1.5, Baso % (Auto) 0.2, Absolute Neuts (auto) 7.6, Absolute Lymphs (auto) 1.93, Nucleated RBC % 0 03/10/21 17:45: Sodium 142, Potassium 5.8 H, Chloride 117 H, Carbon Dioxide 16.0 L, Anion Gap 9, BUN 72 H, Creatinine 2.81 H, Estim Creat Clear Calc 22.65, Est GFR (MDRD) Af Amer 29 L, Est GFR (MDRD) Non-Af 24 L, BUN/Creatinine Ratio 25.6 H , Glucose 237 H, Calcium 8.3 L, Troponin I High Sens 20, TSH 2.81 03/11/21 05:48: WBC 8.7, RBC 4.59 L, Hgb 11.6 L, Hct 37.6 L, MCV 81.9, MCH 25.3 L, MCHC 30.9 L, RDW Std Deviation 45.7 H, RDW Coeff of Yanely 15.5 H, Plt Count 135 L, Immature Gran % (Auto) 0.600, Neut % (Auto) 60.5, Lymph % (Auto) 26.5, [place] % (Auto) 9.2, Eos % (Auto) 2.9, Baso % (Auto) 0.3, Absolute Neuts (auto) 5.3, Absolute Lymphs (auto) 2.31, Nucleated RBC % 0 03/11/21 05:48: PT 13.8, INR 1.1 03/11/21 05:48: Sodium 143, Potassium 5.5 H, Chloride 119 H, Carbon Dioxide 13.0 L, Anion Gap 11, BUN 70 H, Creatinine 2.49 H, Estim Creat Clear Calc 25.56, Est GFR (MDRD) Af Amer 33 L, Est GFR (MDRD) Non-Af 27 L, BUN/Creatinine Ratio 28.1 H , Glucose 157 H, Calcium 7.9 L Rhythm Strip Rhythm Strip: Sinus Rhythm Rate: 40 Ectopy: None Cardiology Labs/Tests 03/10/21 17:45: WBC 10.3, RBC 5.03, Hgb 12.8 L, Hct 40.6, MCV 80.7, MCH 25.4 L, MCHC 31.5 L, Plt Count 156, Immature Gran % (Auto) 0.500, Neut % (Auto) 73.4 H, Lymph % (Auto) 18.8 L, [place] % (Auto) 5.6, Eos % (Auto) 1.5, Baso % (Auto) 0.2, Absolute Neuts (auto) 7.6, Nucleated RBC % 0 03/10/21 17:45: Sodium 142, Potassium 5.8 H, Chloride 117 H, Carbon Dioxide 16.0 L, Anion Gap 9, BUN 72 H, Creatinine 2.81 H, Est GFR (MDRD) Af Amer 29 L, Est GFR (MDRD) Non-Af 24 L, BUN/Creatinine Ratio 25.6 H, Glucose 237 H, Calcium 8.3 L 03/11/21 05:48: WBC 8.7, RBC 4.59 L, Hgb 11.6 L, Hct 37.6 L, MCV 81.9, MCH 25.3 L, MCHC 30.9 L, Plt Count 135 L, Immature Gran % (Auto) 0.600, Neut % (Auto) 60.5, Lymph % (Auto) 26.5, [place] % (Auto) 9.2, Eos % (Auto) 2.9, Baso % (Auto) 0.3, Absolute Neuts (auto) 5.3, Nucleated RBC % 0 03/11/21 05:48: PT 13.8, INR 1.1 03/11/21 05:48: Sodium 143, Potassium 5.5 H, Chloride 119 H, Carbon Dioxide 13.0 L, Anion Gap 11, BUN 70 H, Creatinine 2.49 H, Est GFR (MDRD) Af Amer 33 L, Est GFR (MDRD) Non-Af 27 L, BUN/Creatinine Ratio 28.1 H, Glucose 157 H, Calcium 7.9 L Rhythm: EKG: ECHO: Stress Test: Cardiac Cath: PCI: CT Surgery: Holter monitor: EPS: PPM: CXR: Chest CT Scan: Radiography Diagnostic Testing: Radiology Impression Chest X-Ray 03/10/21 16:48 IMPRESSION: There are no acute findings. Electronically Signed: Earnest Anthony MD at 17:04 EST , Service support ,
[2021-03-11] MEDS: Aspirin 81 MG TAB.CHEW PO (10:13)
[2021-03-11] MEDS: Glimepiride 4 MG Tablet PO (10:14)
[2021-03-11] MEDS: Lisinopril 2.5 MG Tablet PO (10:14)
[2021-03-11] MEDS: predniSONE 5 MG Tablet PO (10:14)
[2021-03-11] MEDS: Smz/Tmp Ds Tablet 0.5 TABLET PO (10:14)
[2021-03-11] MEDS: Tacrolimus Anhydrous 1 MG Capsule 2 MG PO (10:14)
[2021-03-11] MEDS: 0.9% Normal Saline 1,000 ML 50 ML IV (10:14)
[2021-03-11] MEDS: Calcitriol 0.25 MCG Capsule PO (10:14)
--- NOTE | 2021-03-11 10:35 | CASEMGMT ---
RN CM Face to Face with patient for initial transition planning/care coordination assessment. RN CM introduced self and role at [facility]. Patient lying in bed, alert and oriented. Patient willing to participate in assessment and is able to answer all questions appropriately. Care providers, pharmacy, and demographics verified. Patient wishes to discharge home, denies need for home health at this time. Patient states he has no further needs or concerns at this time. CM to follow for discharge planning needs that may arise. PCP: Zachary Specialists: Demario, oncologist Preferred Pharmacy: [facility] retail Insurance: [facility] A Prescription Benefit: yes Living Will/HPOA: yes, Esperanza Burns LNOK: Living Arrangements: Patient lives with in a 2 story home with bed and bath on first floor. 3 steps and railing to enter the home. Transportation: self, DME/HHC: Patient states he has cpap at home. Patient denies previous HHC or SNF. Disposition Plan: Patient to discharge home with family support and follow-up plans in place. Frida KNAPP, RN, CM
[2021-03-11 11:36] LABS: Bedside Glucose 239 mg/dL (70-110)
--- NOTE | 2021-03-11 14:21 | CL.IE_ITS ---
Patient: POLINA GANDARA Study Date: 03/11/2021 Performing: Aidan Lin MD : 1945 Age: 75 Gender: male PROCEDURES PERFORMED [id number] PACER INSERT+DUAL LEADS INDICATIONS Atrioventricular (AV) block PROCEDURE DETAILS The patient was brought to the Catheterization Lab in the postabsorptive nonsedated state. Infor med consent was obtained prior to the procedure. Local anesthetic was given subcutaneously to the le ft upper chest area with Lidocaine 2%. Access was achieved and a guidewire was advanced into the left subclavian vein. Incision was made to the left upper chest. A peel-away sheath was inserted into the left subclavian vein. PPM ventricular lead was inserted / positioned to right ventricular. The sheat h was then removed. PPM ventricular lead testing performed. PPM ventricular lead testing performed. A peel-away sheath was inserted into the left subclavian vein. PPM atrial lead was inserted / position ed to the right atrial appendage. The sheath was then removed. PPM atrial lead testing performed. PPM atrial lead was repositioned and checked. The Atrial lead sutured in place with 2-0 Silk. The Ventri cular PM lead sutured in place with 2-0 Silk. Device pocket was irrigated with antibiotic-ANCEF. PPM generator was attached to the lead(s) and inserted into the pocket. Subcutaneou s closure was completed with 3-0 Vicryl. Skin closure was completed with 4-0 Vicryl. Steri-strips onofre lied to left subclavicular incision. The patient tolerated the procedure well. Estimated Blood Loss: < 10 mls IMPLANTED / EX-PLANTED DEVICES IMPLANTED DEVICE(S): PPM Generator - Land Surveyor Manager: [employer], Model # L111 , Serial # [id number] PPM Atrial lead - Land Surveyor Manager: [employer], Model # 7841 , Serial # [id number] PPM Ventricular lead - Land Surveyor Manager: Bernard CarZen, Model # [id number] , Serial # [id number] DEVICE PARAMETERS ATRIAL LEAD PARAMETERS: P wave- 0.5 (mV) Current- 1.8 (mA) threshold- 3.5 (V) impedence- 523 (OHMS) 10V test, no diaphragmatic capture VENTRICULAR LEAD PARAMETERS: R wave- 2.5 (mV) Current- 0.9 (mA) threshold- 3.5 (V) impedence- 699 (OHMS) 10V test, no diaphragmatic capture DEVICE PARAMETERS: Mode- DDD Lower rate- 60 Upper rate- 130 CONCLUSIONS / RECOMMENDATIONS Device Conclusions: Successful implantation of a dual chamber pacemaker Device Recommendations: Follow up with Primary Care Physician PROCEDURE MEDICATIONS Versed 1 mg IV Fentanyl 50 mcg IV Oxygen: 2 L/min via nasal cannula Antibiotic given in appropriate timeframe. Ancef 2 Gm IV @ 03/11/2021 12:51:11 Signed By Aidan Lin MD On 03/11/2021 14:20:41 Aidan Lin MD
[2021-03-11] MEDS: Ferrous Sulfate 325 MG Tablet PO (15:14)
--- NOTE | 2021-03-11 20:11 | PN.HOSP_ITS ---
Subjective Subjective Patient was seen and examined today, I talked with his who was in his room at the time of my examination. Patient agreed to have implantation of a pacemaker today, extensive conversations were carried out by cardiology with the patient and he consented to the procedure knowing that there was risk of infection, bleeding, or arrhythmias during the procedure. Patient's medications were updated reflecting his home medications here. Objective Data Objective Data Vital Signs: Vital Signs Temp Pulse Resp BP Pulse Ox 98.0 F 71 18 166/81 H 99 03/11/21 18:00 03/11/21 19:00 03/11/21 18:00 03/11/21 18:00 03/11/21 18:00 Oxygen Delivery Method Room Air Weight: 99.1 kg Body Mass Index (BMI) 33.2 Intake & Output: Intake and Output for Last 24 Hours 03/09/21 03/10/21 03/11/21 23:59 23:59 23:59 Intake Total 720 / 720 Output Total 550 / 550 Balance 170 / 170 Lab / Micro Data Result Diagrams: 03/11/21 05:48 03/11/21 05:48 Labs: Laboratory Results - last 24 hr 03/11/21 05:48: WBC 8.7, RBC 4.59 L, Hgb 11.6 L, Hct 37.6 L, MCV 81.9, MCH 25.3 L, MCHC 30.9 L, RDW Std Deviation 45.7 H, RDW Coeff of Yanely 15.5 H, Plt Count 135 L, Immature Gran % (Auto) 0.600, Neut % (Auto) 60.5, Lymph % (Auto) 26.5, [place] % (Auto) 9.2, Eos % (Auto) 2.9, Baso % (Auto) 0.3, Absolute Neuts (auto) 5.3, Absolute Lymphs (auto) 2.31, Nucleated RBC % 0 03/11/21 05:48: PT 13.8, INR 1.1 03/11/21 05:48: Sodium 143, Potassium 5.5 H, Chloride 119 H, Carbon Dioxide 13.0 L, Anion Gap 11, BUN 70 H, Creatinine 2.49 H, Estim Creat Clear Calc 25.56, Est GFR (MDRD) Af Amer 33 L, Est GFR (MDRD) Non-Af 27 L, BUN/Creatinine Ratio 28.1 H , Glucose 157 H, Calcium 7.9 L 03/11/21 11:31: POC Glucose 239 H Radiography Diagnostic Testing: Radiology Impression Echocardiogram 03/10/21 21:43 Interpretation Summary Normal LV size. Mild concentric left ventricular hypertrophy. Left ventricular systolic function is normal. The estimated ejection fraction is 70 %. Contrast injection was performed. Ordering Physician: Boni Camp Referring Physician: Sy Sharma Chi Performed By: Howard Escamilla RCS Rhythm Strip Rhythm Strip: Sinus Rhythm Rate: 40 Ectopy: None Physical Exam Const alert, oriented x3 and no apparent distress General Appearance: cooperative, well kempt and well developed Orientation / Consciousness: awake, oriented to person, oriented to place and oriented to time HEENT normocephalic, head/scalp atraumatic and moist oral mucous membranes Head and Scalp: normocephalic Eyes PERRL, EOMs intact bilaterally and conjunctivae normal Neck nuchal rigidity, supple, no JVD and thyroid normal General: trachea midline Resp normal respiratory effort and clear to auscultation bilaterally Auscultation: Negative for rales, rhonchi or wheezes Cardio S1 normal heart sound, S2 normal heart sound, no murmurs, no rub and no gallops Cardio Narrative: Heart rate and rhythm is bradycardic and irregular at times GI normal to inspection, nondistended, normoactive bowel sounds, soft to palpation, non-tender and non-distended Extremity no clubbing, cyanosis or edema Skin no rashes or lesions noted General Skin Exam: no breakdown Neuro oriented x3, CN's II-XII intact bilaterally, no focal motor deficits and no sensory deficits noted Sensorium / Orientation: awake and alert Speech: speech normal Psych thought process normal and affect normal Assessment & Plan Assessment/Plan (1) Second degree heart block: PLAN: 1. 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 #3 hyperkalemia-patient's BMP will be monitored, he received Kayexalate today #4 type 2 diabetes-blood sugars will be monitored #5 essential hypertension Charges/Coding Visit Charges Inpatient E&M: 84705 Subs Hosp L2
[2021-03-11] MEDS: Tacrolimus Anhydrous 1 MG Capsule PO (21:04)
[2021-03-11] MEDS: Atorvastatin Calcium 40 MG Tablet PO (21:04)
[2021-03-11] MEDS: Carvedilol 12.5 MG Tablet PO (21:04)
[2021-03-11] MEDS: Sodium Bicarbonate 650 MG Tablet PO (21:04)
[2021-03-11] MEDS: Mycophenolate Mofetil 250 MG Capsule PO (21:04)
[2021-03-12 03:00] VITALS: PULSE 66
[2021-03-12 04:30] VITALS: BP 155/74; PULSE 71; RESP 16; TEMP 36.4; O2SAT 95
--- NOTE | 2021-03-12 05:55 | RAD_ITS ---
STUDY: X-RAY CHEST REASON FOR EXAM: Male, 75 years old. Post permanent ICD/Pacemaker -- inspiration/expiration. Arms Down. TECHNIQUE: AP inspiration and expiration and lateral COMPARISON: 03/10/2021 FINDINGS: Interval implantation of cardiac pacemaker from a left subclavian approach. The lungs are clear and expanded. There is no demonstrated pleural abnormality. Normal size heart. Normal mediastinum and yoel. Normal visualized pulmonary arteries. There is atherosclerotic calcification of the aortic arch with tortuosity. There are diffuse degenerative changes of the visualized thoracic spine. Normal visualized ribs, clavicles, and shoulders. There is no demonstrated abnormality of the visualized soft tissue structures of the upper abdomen. RAD/Chest 3 View IMPRESSION: Interval cardiac pacemaker implantation from a left subclavian approach. No pneumothorax visualized. Electronically Signed: Elvis Wade MD at 4:25 EST Tel , Service support ,
[2021-03-12 06:45] LABS: Anion Gap 9 (5-15); BUN 61 mg/dL (7-18); BUN/Creat Ratio 26.1 RATIO (10-20); Calcium,Total 7.8 mg/dL (8.5-10.1); Chloride 117 mmol/L (98-107); Creatinine, Serum 2.34 mg/dL (0.70-1.30); EST Glomerular Filtration Rate 29 mL/min (>60); Est Glom Filt Rate - Afr Amer 35 mL/min (>60); Glucose 107 mg/dL (74-106); Potassium 5.4 mmol/L (3.5-5.1); Sodium Level 142 mmol/L (136-145)
[2021-03-12 06:52] VITALS: PULSE 64
[2021-03-12] MEDS: Smz/Tmp Ds Tablet 0.5 TABLET PO (08:56)
[2021-03-12] MEDS: Calcitriol 0.25 MCG Capsule PO (08:56)
[2021-03-12] MEDS: NIFEdipine 60 MG Tablet PO (08:56)
[2021-03-12] MEDS: Glimepiride 4 MG Tablet PO (08:56)
[2021-03-12] MEDS: amLODIPine 5 MG Tablet PO (08:56)
[2021-03-12] MEDS: predniSONE 5 MG Tablet PO (08:56)
[2021-03-12] MEDS: Tacrolimus Anhydrous 1 MG Capsule 2 MG PO (08:56)
[2021-03-12] MEDS: Aspirin 81 MG TAB.CHEW PO (08:56)
[2021-03-12] MEDS: Carvedilol 12.5 MG Tablet PO (08:57)
[2021-03-12] MEDS: Sodium Bicarbonate 650 MG Tablet PO (08:57)
[2021-03-12] MEDS: Lisinopril 2.5 MG Tablet PO (08:58)
[2021-03-12] MEDS: Mycophenolate Mofetil 250 MG Capsule PO (08:58)
[2021-03-12 09:39] VITALS: O2SAT 95
--- NOTE | 2021-03-12 10:13 | PCM.DC ---
Discharge Instructions Diet Discharge Diet: No restrictions (as you feel able. No excessive stretching. No lifting your arm over your head (keep elbow below shoulder level) until seen for your pacemaker check. Do not lift your elbow away from your side until you are seen for your first visit. Keep the arm sling on if it helps remind you not to lift your arm.) Activity Additional Activity Instructions:: May shower or bathe on []. Do not scrub the incision or soak in the tub. Just wash with soap and let the water run over the incision. Gently pat dry with towel. Medications: Take your pain medication as directed. Refer to your discharge instruction sheet for a list of medications you are to take. Dressing / Incision Call your doctor if your incision/area has: Continuous Slow Oozing, Sudden Increased Bleeding, Increased Pain/ Swelling, Increased Redness, Foul Smelling Discharge and Swelling at the incision site Call your doctor if you observe: Fever of 101 or Higher, Shortness of breath, Dizziness, Fainting spells, Swelling in the ankles, Chest pain, Prolonged hiccupping and Increased palpitations (irregular heartbeat) Additional Dressing/Incision Instructions:: When dressing is removed, wash and dry incision. Keep covered with a light bandage if it is rubbing against your clothing. Do not cover the incision with an airtight bandage. Change the bandage daily. Do not remove steri strips. The strips will fall off on their own. Follow Up Care Please Follow Up With: Aidan Lin MD When: Call [phone] for follow up. Follow-up in pacer clinic March 18Wednesday at 9 AM Test Results: Test results from this visit will be discussed in further detail at your follow-up appointment, if applicable. Discharge Plan Admission Admit Date/Time: 03/10/21 21:02 Attending Provider: Yash Hernandez Primary Care Provider: Sy Sharma Chi Consulting Providers: Aidan Lin Discharge Orders/Prescriptions Prescriptions: No Action aspirin 81 mg tablet,chewable 81 mg PO DAILY RF: 0 glimepiride 4 mg tablet 4 mg PO DAILY RF: 0 lisinopril 2.5 mg tablet 5 mg PO DAILY RF: 0 prednisone 5 mg tablet 5 mg PO DAILY RF: 0 sodium bicarbonate 650 mg tablet 650 mg PO BID RF: 0 sodium polystyrene sulfonate Powder PO .every 72 hours PRN (Reason: Hyperkalemia) RF: 0 sulfamethoxazole-trimethoprim [Bactrim] 400-80 mg tablet 1 tab PO DAILY RF: 0 tacrolimus 0.5 mg capsule 2 mg PO DAILY RF: 0 atorvastatin 40 MG tablet 40 mg PO QHS RF: 0 dulaglutide 1.5 MG/0.5 ML pen injector 1.5 mg SQ REYNA RF: 0 carvedilol 12.5 mg tablet 12.5 mg PO BID RF: 0 amlodipine 10 MG tablet 5 mg PO DAILY RF: 0 ferrous sulfate 325 MG tablet 325 mg PO DAILY RF: 0 calcitriol 0.25 MCG capsule 0.25 mcg PO DAILY RF: 0 mycophenolate mofetil [CellCept] 250 mg Capsule 250 mg PO BID RF: 0 nifedipine [Procardia XL] 60 mg Tablet Extended Release 24hr 60 mg PO DAILY RF: 0 tacrolimus 1 mg Capsule 1 mg PO QHS RF: 0 Referrals / Follow Up: Sy Sharma Chi, MD [Primary Care Provider] -
--- NOTE | 2021-03-12 10:34 | PCM.DC ---
Discharge Instructions Diet Discharge Diet: No restrictions (as you feel able. No excessive stretching. No lifting your arm over your head (keep elbow below shoulder level) until seen for your pacemaker check. Do not lift your elbow away from your side until you are seen for your first visit. Keep the arm sling on if it helps remind you not to lift your arm.) and - (Resume your previous diet) Activity Additional Activity Instructions:: May shower or bathe on []. Do not scrub the incision or soak in the tub. Just wash with soap and let the water run over the incision. Gently pat dry with towel. Medications: Take your pain medication as directed. Refer to your discharge instruction sheet for a list of medications you are to take. Dressing / Incision Call your doctor if your incision/area has: Continuous Slow Oozing, Sudden Increased Bleeding, Increased Pain/ Swelling, Increased Redness, Foul Smelling Discharge and Swelling at the incision site Call your doctor if you observe: Fever of 101 or Higher, Shortness of breath, Dizziness, Fainting spells, Swelling in the ankles, Chest pain, Prolonged hiccupping and Increased palpitations (irregular heartbeat) Additional Dressing/Incision Instructions:: When dressing is removed, wash and dry incision. Keep covered with a light bandage if it is rubbing against your clothing. Do not cover the incision with an airtight bandage. Change the bandage daily. Do not remove steri strips. The strips will fall off on their own. Follow Up Care Please Follow Up With: Aidan Lin MD Test Results: Test results from this visit will be discussed in further detail at your follow-up appointment, if applicable. Discharge Plan Admission Admit Date/Time: 03/10/21 21:02 Primary Reason for Your Visit: Second-degree heart block Attending Provider: Yash Hernandez Primary Care Provider: Sy Sharma Chi Consulting Providers: Aidan Lin Discharge Orders/Prescriptions Prescriptions: New lisinopril [Zestril] 5 mg tablet 5 mg PO BID Qty: 180 RF: 0 Continued aspirin 81 mg tablet,chewable 81 mg PO DAILY RF: 0 glimepiride 4 mg tablet 4 mg PO DAILY RF: 0 lisinopril 2.5 mg tablet 5 mg PO DAILY RF: 0 prednisone 5 mg tablet 5 mg PO DAILY RF: 0 sodium bicarbonate 650 mg tablet 650 mg PO BID RF: 0 sodium polystyrene sulfonate Powder PO .every 72 hours PRN (Reason: Hyperkalemia) RF: 0 sulfamethoxazole-trimethoprim [Bactrim] 400-80 mg tablet 1 tab PO DAILY RF: 0 tacrolimus 0.5 mg capsule 2 mg PO DAILY RF: 0 atorvastatin 40 MG tablet 40 mg PO QHS RF: 0 dulaglutide 1.5 MG/0.5 ML pen injector 1.5 mg SQ REYNA RF: 0 carvedilol 12.5 mg tablet 12.5 mg PO BID RF: 0 amlodipine 10 MG tablet 5 mg PO DAILY RF: 0 ferrous sulfate 325 MG tablet 325 mg PO DAILY RF: 0 calcitriol 0.25 MCG capsule 0.25 mcg PO DAILY RF: 0 mycophenolate mofetil [CellCept] 250 mg Capsule 250 mg PO BID RF: 0 nifedipine [Procardia XL] 60 mg Tablet Extended Release 24hr 60 mg PO DAILY RF: 0 tacrolimus 1 mg Capsule 1 mg PO QHS RF: 0 Referrals / Follow Up: Aidan Lin MD [STAFF PHYSICIAN] - See Referral Note (As directed) Sy Sharma Chi, MD [Primary Care Provider] - Within 2 Weeks Disposition Disposition (needs filled in before D/C Order can be placed): Home, Self Care
[2021-03-12 10:46] VITALS: BP 124/60; PULSE 72; RESP 18; TEMP 37.3; O2SAT 99
--- NOTE | 2021-03-12 10:50 | CASEMGMT ---
Per Claire GREEN, no need for pt to have therapy prior to discharge. Pt voices no further questions/concerns/needs. Tanesha GREEN CM
--- NOTE | 2021-03-12 11:32 | PCM.DC.SUM ---
Providers Date of Admission: 03/10/21 Date of Discharge: 03/12/21 Primary Care Physician: Dr. Sy Sharma MD Consultations 03/10/21 21:43 Consult: Cardiology Routine Consulting Provider: Aidan Lin Reason for Consult: bradycardia EMERGENT Consult: No MD Notified: Yes Date Notified: 03/10/21 Time Notified: 21:04 Method of Notification: Verbal Reason For Visit: SYMPTOMATIC BRADYCARDIA Diagnosis Discharge Diagnosis (1) Second degree heart block: Status: Acute Code(s): I44.1 - Atrioventricular block, second degree Plan: 1. 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 #2 stage IV chronic kidney disease #3 hyperkalemia #4 type 2 diabetes #5 essential hypertension Medications at Discharge Home Medications atorvastatin 40 mg PO QHS 06/23/17 dulaglutide 1.5 mg SQ REYNA 06/23/17 amlodipine 5 mg PO DAILY 10/24/18 calcitriol 0.25 mcg PO DAILY 10/24/18 ferrous sulfate 325 mg PO DAILY 10/24/18 aspirin 81 mg chewable tablet 81 mg PO DAILY 10/02/20 carvedilol 12.5 mg tablet 12.5 mg PO BID tab 10/02/20 glimepiride 4 mg tablet 4 mg PO DAILY 10/02/20 lisinopril 2.5 mg tablet 5 mg PO DAILY 10/02/20 prednisone 5 mg tablet 5 mg PO DAILY 10/02/20 sodium bicarbonate 650 mg tablet 650 mg PO BID 10/02/20 sodium polystyrene sulfonate PO .every 72 hours PRN g 10/02/20 sulfamethoxazole 400 mg-trimethoprim 80 mg tablet 1 tab PO DAILY 10/02/20 tacrolimus 0.5 mg capsule, immediate-release 2 mg PO DAILY cap 10/02/20 mycophenolate mofetil [CellCept] 250 mg PO BID 03/11/21 nifedipine [Procardia XL] 60 mg PO DAILY 03/11/21 tacrolimus 1 mg PO QHS 03/11/21 lisinopril [Zestril] 5 mg PO BID #180 tab 03/12/21 Hospital Course Operations None Procedures - (Pacemaker inserted) Summary of Care Provided Minutes Spent on Discharge: 31 Hospital Course: This was a 75-year-old male who presented to the emergency room at [facility] with a complaint of low heart rate, 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 On evaluation in the emergency room, patient was noted to be in a second-degree AV block with a low heart rate of approximately 40. Patient's blood pressure however was stable. Patient was admitted to PCU, he was seen in consultation by cardiology, after much discussion with the patient's family, cardiology decided to place a permanent pacemaker in the patient. He consented. Following implantation of the pacemaker, patient had no untoward events, on 03/12/2021, patient was seen and examined: On examination he appeared in good health and spirits. Vital signs as documented. Skin warm and dry and without overt rashes. Neck without JVD, neck was supple, trachea midline, thyroid was normal. Lungs clear bilaterally, normal air movement was noted. Heart exam notable for regular rhythm, normal sounds and absence of murmurs, rubs or gallops. Abdomen unremarkable and without evidence of organomegaly, masses, or abdominal aortic enlargement. Bowel sounds are present, abdomen is not distended. Extremities nonedematous, no cyanosis was noted, no clubbing was noted. Neuro: Cranial nerves II through XII are grossly intact, no focal motor deficits were noted, sensation to light touch and pinprick intact, motor exam 5/5 throughout. Psych: Patient is alert and oriented x3, he does not appear anxious or depressed, he does not appear agitated. Patient appears stable for discharge home on 03/12/2021. Weight / BMI Weight Weight: 99.1 kg Body Mass Index (BMI) 33.2 ABG / Lab / Microbiology Data Result Diagrams: 03/11/21 05:48 03/12/21 06:00 Laboratory: Laboratory Results - last 24 hr 03/11/21 11:31: POC Glucose 239 H 03/12/21 06:00: Sodium 142, Potassium 5.4 H, Chloride 117 H, Carbon Dioxide 16.0 L, Anion Gap 9, BUN 61 H, Creatinine 2.34 H, Estim Creat Clear Calc 27.20, Est GFR (MDRD) Af Amer 35 L, Est GFR (MDRD) Non-Af 29 L, BUN/Creatinine Ratio 26.1 H, Glucose 107 H, Calcium 7.8 L Radiography Diagnostic Testing: Radiology Impression Chest X-Ray 03/12/21 05:55 IMPRESSION: Interval cardiac pacemaker implantation from a left subclavian approach. No pneumothorax visualized. Electronically Signed: Elvis Wade MD at 4:25 EST Tel , Service support , D/C Instructions Discharge Diet: No restrictions (as you feel able. No excessive stretching. No lifting your arm over your head (keep elbow below shoulder level) until seen for your pacemaker check. Do not lift your elbow away from your side until you are seen for your first visit. Keep the arm sling on if it helps remind you not to lift your arm.) and - (Resume your previous diet) Additional Activity Instructions: May shower or bathe on []. Do not scrub the incision or soak in the tub. Just wash with soap and let the water run over the incision. Gently pat dry with towel. Medications: Take your pain medication as directed. Refer to your discharge instruction sheet for a list of medications you are to take. Call your doctor if your incision/area has: Continuous Slow Oozing, Sudden Increased Bleeding, Increased Pain/ Swelling, Increased Redness, Foul Smelling Discharge and Swelling at the incision site Call your doctor if you observe: Fever of 101 or Higher, Shortness of breath, Dizziness, Fainting spells, Swelling in the ankles, Chest pain, Prolonged hiccupping and Increased palpitations (irregular heartbeat) Additional Dressing/Incision Instructions: When dressing is removed, wash and dry incision. Keep covered with a light bandage if it is rubbing against your clothing. Do not cover the incision with an airtight bandage. Change the bandage daily. Do not remove steri strips. The strips will fall off on their own. Please Follow Up With: Aidan Lin MD When: Call [phone] for follow up. Follow-up in [facility] clinic March 18Wednesday at 9 AM Meaningful Use Info Meaningful Use Diagnoses (Choose all that apply): None applicable Discharge Plan Admission Admit Date/Time: 03/10/21 21:02 Primary Reason for Your Visit: Second-degree heart block Attending Provider: Yash Hernandez Primary Care Provider: Sy Sharma Chi Consulting Providers: Aidan Lin Discharge Orders/Prescriptions Prescriptions: New lisinopril [Zestril] 5 mg tablet 5 mg PO BID Qty: 180 RF: 0 Continued aspirin 81 mg tablet,chewable 81 mg PO DAILY RF: 0 glimepiride 4 mg tablet 4 mg PO DAILY RF: 0 lisinopril 2.5 mg tablet 5 mg PO DAILY RF: 0 prednisone 5 mg tablet 5 mg PO DAILY RF: 0 sodium bicarbonate 650 mg tablet 650 mg PO BID RF: 0 sodium polystyrene sulfonate Powder PO .every 72 hours PRN (Reason: Hyperkalemia) RF: 0 sulfamethoxazole-trimethoprim [Bactrim] 400-80 mg tablet 1 tab PO DAILY RF: 0 tacrolimus 0.5 mg capsule 2 mg PO DAILY RF: 0 atorvastatin 40 MG tablet 40 mg PO QHS RF: 0 dulaglutide 1.5 MG/0.5 ML pen injector 1.5 mg SQ REYNA RF: 0 carvedilol 12.5 mg tablet 12.5 mg PO BID RF: 0 amlodipine 10 MG tablet 5 mg PO DAILY RF: 0 ferrous sulfate 325 MG tablet 325 mg PO DAILY RF: 0 calcitriol 0.25 MCG capsule 0.25 mcg PO DAILY RF: 0 mycophenolate mofetil [CellCept] 250 mg Capsule 250 mg PO BID RF: 0 nifedipine [Procardia XL] 60 mg Tablet Extended Release 24hr 60 mg PO DAILY RF: 0 tacrolimus 1 mg Capsule 1 mg PO QHS RF: 0 Referrals / Follow Up: Aidan Lin MD [STAFF PHYSICIAN] - See Referral Note (As directed) Sy Sharma Chi, MD [Primary Care Provider] - Within 2 Weeks Disposition Disposition (needs filled in before D/C Order can be placed): Home, Self Care Charges/Coding Visit Charges Inpatient E&M: 62824 Disch Hosp
== END 2021-03-12 11:26 | disposition home or self-care (01) | DRG 243 ==
LOC: ED 19:37 → PCU 21:23
PROVIDERS: Admitting Provider Family Medicine; Emergency Provider Emergency Medicine; PCP Family Medicine Geriatric Medicine; Visit Provider Internal Medicine
DX: I45.2 Bifascicular block (principal); N18.4 Chronic kidney disease, stage 4 (severe); Z94.0 Kidney transplant status; D61.818 Other pancytopenia; I12.9 Hypertensive chronic kidney disease with stage 1 through stage 4 chronic kidney disease, or unspecified chronic kidney disease; E78.5 Hyperlipidemia, unspecified; E11.22 Type 2 diabetes mellitus with diabetic chronic kidney disease; G47.33 Obstructive sleep apnea (adult) (pediatric); E87.5 Hyperkalemia; D63.1 Anemia in chronic kidney disease; E66.09 Other obesity due to excess calories; Z79.899 Other long term (current) drug therapy; Z79.82 Long term (current) use of aspirin; Z79.84 Long term (current) use of oral hypoglycemic drugs; Z87.891 Personal history of nicotine dependence; Z68.35 Body mass index [BMI] 35.0-35.9, adult
CPT/HCPCS: 33208; 36415; 71045; 71047; 80048; 82962; 84443; 84484; 85025; 85610; 93005; 93306; 99152; 99153; 99283; J7030; J7050; Q9957; A4216; C1894; C8929; J2405; J3490

== ENCOUNTER → 2021-10-29 | Outpatient (CLI) | payer OTHER, SELFPAY ==
[2021-10-29 12:50] LABS: Absolute Lymphocyte Count 1.61 X10^3/uL (0.83-4.51); Absolute Neutrophil Count 4.9 X10^3/uL (2.0-7.7); Basophil# 0.03 X10^3/uL; Basophil% 0.4 % (0-1); Eosinophil# 0.25 X10^3/uL; Eosinophils% 3.4 % (0-5); Hematocrit 33.9 % (40-54); Hemoglobin 10.5 g/dL (13.0-16.5); Lymphocyte # 1.61 X10^3/ul (0.83-4.51); Mean Corpuscular Hgb 25.3 pg (27.0-32.0); Mean Corpuscular Volume 81.7 fL (80-94); Mean Platelet Vol. 11.1 fl (6.2-12.0); Monocyte# 0.53 X10^3/uL; Monocyte% 7.3 % (0-10); NRBC Flagged by Analyzer 0 % (0-5); Neutrophil # 4.86 X10^3/uL (2.7-7.7); Neutrophil % 66.5 % (47-70); Platelet Count 210 K/mm3 (150-450); RBC Distribution Width CV 13.9 % (11.6-14.6); RBC Distribution Width SD 41.4 fl (35.1-43.9); Red Blood Count 4.15 M/mm3 (4.6-6.2); White Blood Count 7.3 K/mm3 (4.4-11.0)
[2021-10-29 13:03] LABS: Vitamin D,25 Hydroxy 50.8 ng/mL
[2021-10-29 13:13] LABS: ALB/GLOB Ratio 0.8 RATIO (0.9-2.4); AST(SGOT) 16 U/L (15-37); Alanine Aminotransfer ALT/SGPT 19 U/L (16-61); Albumin, Serum 2.8 g/dL (3.2-5.0); Alkaline Phosphatase 74 U/L (45-117); Anion Gap 7 (5-15); BUN 41 mg/dL (7-18); BUN/Creat Ratio 11.2 RATIO (10-20); Chloride 108 mmol/L (98-107); Creatinine, Serum 3.67 mg/dL (0.70-1.30); EST Glomerular Filtration Rate 17 mL/min (>60); Est Glom Filt Rate - Afr Amer 21 mL/min (>60); Globulin 3.6 g/dL (2.2-4.2); Glucose 165 mg/dL (74-106); Protein, Total 6.4 g/dL (6.4-8.2); Sodium Level 139 mmol/L (136-145); Thyroid Stim Hormone (TSH) 2.76 uIU/mL (0.358-3.74)
== END | disposition home or self-care (01) ==
LOC: POLAB3 11:00
PROVIDERS: PCP Family Medicine Geriatric Medicine; Visit Provider Family Medicine Geriatric Medicine
DX: E11.9 Type 2 diabetes mellitus without complications (principal); E55.9 Vitamin D deficiency, unspecified; I10 Essential (primary) hypertension
CPT/HCPCS: 36415; 80053; 82306; 84443; 85025

== ENCOUNTER 2022-01-27 11:37 | Emergency (ER) | payer OTHER, SELFPAY ==
[2022-01-27] VITALS (8 sets, daily range): BP systolic 158–202; BP diastolic 81–96; PULSE 74–99; RESP 17–21; TEMP 36.4; O2SAT 99–100; BMI 34.0
--- NOTE | 2022-01-27 11:55 | EKG12_ITS ---
Test Reason : Blood Pressure : / mmHG Vent. Rate : 084 BPM Atrial Rate : 084 BPM P-R Int : 140 ms QRS Dur : 194 ms QT Int : 462 ms P-R-T Axes : 038 -54 108 degrees QTc Int : 545 ms Atrial-sensed ventricular-paced rhythm Abnormal ECG Confirmed by EL JOSEPH, RENATO ([id number]), field map editor ERON MOTLEY ([id number]) on 01/29/2022 12:30:11 PM Referred By: Confirmed By:RENATO GALLEGOS MD
--- NOTE | 2022-01-27 11:56 | EDS_ITS ---
HPI History of Present Illness Chief Complaint: Hypertension Detail of Chief Complaint: High blood pressure Informant: patient Narrative Narrative: Patient presents the emergency department with elevated blood pressure today. Patient states that he woke up this morning and checked his blood pressure and noticed that it was 194/94. Patient states that he did not sleep well last night but often checks his blood pressure in the morning. Patient then took his blood pressure medication and repeated his blood pressure and it was 200/100. Patient denies chest pain or shortness of breath. He denies headache. He does describe feeling a little woozy when standing. He denies recent illness. Patient did take a clonidine tablet 0.1 mg 2 hours ago and did not seem to bring his blood pressure down. Patient has history of kidney transplant in 2019. Patient also has a pacemaker. 1 month ago patient was started on a new diuretic torsemide for fluid retention. Patient's blood pressure normally runs 160s over 70s. [facility] Medical History Anemia ARF (acute renal failure) Bradycardia Central line complication Chronic kidney disease, stage IV (severe) DM2 (diabetes mellitus, type 2) Essential hypertension High degree atrioventricular block History of complete heart block Hyperlipidemia Hypertensive urgency Kidney transplant candidate (01/31/19) Kidney transplant complication Pre-syncope Second degree heart block Type 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 Home Medications atorvastatin 40 mg tablet 40 mg PO QHS CHOLESTEROL 06/23/17 [History Last Taken 03/10/21 15:00] dulaglutide 1.5 mg/0.5 mL subcutaneous pen injector 1.5 mg SQ REYNA DIABETES 06/23/17 [History Last Taken 03/09/21] ferrous sulfate 325 mg (65 mg iron) tablet 325 mg PO DAILY supplement 10/24/18 [History Last Taken 03/10/21 09:00] aspirin 81 mg chewable tablet 81 mg PO DAILY heart health 10/02/20 [History Last Taken 03/10/21 09:00] glimepiride 4 mg tablet 4 mg PO DAILY diabetes 10/02/20 [History Last Taken 03/10/21 09:00] prednisone 5 mg tablet 5 mg PO DAILY steroid 10/02/20 [History Last Taken 03/10/21 09:00] sodium bicarbonate 650 mg tablet 650 mg PO BID supplement 10/02/20 [History Last Taken 03/10/21 15:00] sulfamethoxazole 400 mg-trimethoprim 80 mg tablet (Bactrim) 1 tab PO DAILY antibiotic 10/02/20 [History Last Taken 03/10/21 09:00] tacrolimus 0.5 mg capsule, immediate-release 2 mg PO DAILY immunosuppresive 10/02/20 [History Last Taken 03/10/21 15:00] mycophenolate mofetil 250 mg capsule (CellCept) 250 mg PO BID transplant med 03/11/21 [History Last Taken Unknown] nifedipine 60 mg tablet,extended release 24 hr (Procardia XL) 60 mg PO DAILY blood pressure 03/11/21 [History Last Taken Unknown] tacrolimus 1 mg capsule, immediate-release 1 mg PO QHS immunosuppresive 03/11/21 [History Last Taken 03/10/21] lisinopril 5 mg tablet (Zestril) 5 mg PO BID #180 tabs 03/12/21 [Rx Last Taken Unknown] lorazepam 1 mg tablet (Ativan) 1 mg PO TID PRN anxiety #10 tabs 01/27/22 [Rx Last Taken Unknown] Allergy/AdvReac Type Severity Reaction Status Date / Time No Known Allergies Allergy Verified 01/27/22 11:40 Family History Father Pneumonia Mother CVA (cerebral vascular accident) Surgical History History of permanent cardiac pacemaker placement (03/11/21) Renal transplant recipient S/P colonoscopy Status post kidney transplant [place] teeth removed Social History Smoking Status: Never smoker how long ago did patient quit smokin, 0.5pk/day second hand exposure: Yes alcohol intake: current alcohol intake frequency: a few times a month substance use type: does not use ROS ROS ED ROS Narrative Hypertension Review of Systems ROS Unobtainable: other Constitutional Constitutional ED: Reports lethargy; Denies chills, fever(s), sweats or weight loss Eyes Eyes: Denies blurry vision, change in vision or diplopia ENT ENT ED: Denies rhinorrhea or sore throat Cardiovascular Cardiovascular: Denies chest pain, orthopnea or racing heartbeat Respiratory/Chest Respiratory/Chest: Denies cough, dyspnea, dyspnea on exertion, orthopnea or sputum Gastrointestinal Gastrointestinal: Denies abdominal pain, diarrhea, nausea or vomiting Genitourinary Genitourinary ED: Denies dysuria, hematuria or urinary frequency Musculoskeletal Musculoskeletal: Denies arthralgias, back pain, myalgias or neck pain Integumentary Denies abscess, Abrasions or rash Neurologic Neurologic: Reports other Details: Dizziness with standing ; Denies headache(s) or weakness Psychiatric Psychiatric: Denies anxiety, depression or suicidal thoughts Endocrine Endocrinology: Denies polydipsia, polyphagia or polyuria Hematologic/Lymphatic Hematologic/Lymphatic: Denies easy bleeding, easy bruising or lymphadenopathy Allergic/Immunologic Allergic/Immunologic ED: Denies mouth swelling, tongue swelling or urticaria EXAM Physical Exam Const Vital Signs: 01/27/22 11:37 01/27/22 11:54 01/27/22 12:16 Temperature 97.6 F L Temperature Source Temporal Pulse Rate 94 74 Respiratory Rate 18 17 Respiratory Effort Normal Non-Labored Respiratory Pattern Normal Blood Pressure 202/90 H 200/96 H Blood Pressure Mean 127 130 Pulse Ox 99 100 Oxygen Delivery Method Room Air Room Air 01/27/22 12:35 01/27/22 13:14 01/27/22 14:24 Temperature Temperature Source Pulse Rate 81 84 95 Respiratory Rate 21 H Respiratory Effort Respiratory Pattern Blood Pressure 198/95 H 186/89 H 187/91 H Blood Pressure Mean 129 121 Pulse Ox 99 Oxygen Delivery Method Room Air 01/27/22 14:45 01/27/22 15:07 Temperature Temperature Source Pulse Rate 99 89 Respiratory Rate 21 H Respiratory Effort Respiratory Pattern Blood Pressure 158/83 H 166/81 H Blood Pressure Mean 108 109 Pulse Ox Oxygen Delivery Method Positive well nourished and well developed General Appearance ED: well developed and NAD HEENT Reports TM's clear and moist mucous membranes normocephalic and atraumatic; Negative for trauma or tenderness Tympanic Membrane ED: Yes TM's clear Eyes PERRL and EOMs intact bilaterally General Eye ED: Negative for pale conjunctiva or scleral icterus Neck no lymphadenopathy, supple and no JVD General: Negative for tenderness Chest Wall inspection of chest normal and palpation of chest normal Chest: Negative for tenderness Resp normal respiratory effort and clear to auscultation bilaterally Effort and Inspection: Negative for respiratory distress or pain with movement Auscultation: Negative for rhonchi, wheezes or diminished lung sounds Cardio regular rate, regular rhythm, S1 normal heart sound, S2 normal heart sound and no murmurs Peripheral Pulses: pulses 2+ throughout GI normal to inspection, nondistended, normoactive bowel sounds, soft to palpation, non-tender, non-distended and no masses Back/Spine no CVA tenderness and no thoracic nor lumbar tenderness Extremity normal to inspection General Extremety ED: Negative for edema General Extremity: Negative for edema Neuro oriented x3, CN's II-XII intact bilaterally, no sensory deficits noted and gait normal Sensorium / Orientation: awake, alert, oriented to person, oriented to place and oriented to time Motor Exam: strength 5/5 throughout and strength abnormal Psych mental status grossly normal Skin no rashes or lesions noted and no wounds MDM MDM MDM Narrative Medical decision making narrative: IV line established on arrival. Patient had lab work-up that was obtained with a CBC that showed hemoglobin 11 and hematocrit 35.6 with a WBC count of 8.5. Chemistries unremarkable. BUN was 68 and creatinine 4.15. Urinalysis was unremarkable. Patient's blood pressure would range between the 180s to 200s systolic over 90s to low 100s diastolic. I did give him 1 dose of hydralazine 5 mg IV. I discussed case with his primary care physician Dr. Sharma who did not want to make any changes in his medications at this time but will see him first thing tomorrow morning. Patient otherwise asymptomatic will be discharged home with diagnosis of hypertension. Patient also advised to get in touch with his transplant team. 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 Patient is aware of this and he is being followed closely. Lab Data Attestation: I reviewed the patient's lab results. Labs: Laboratory Results - last 24 hr 01/27/22 01/27/22 01/27/22 11:20 11:20 12:10 WBC 8.5 RBC 4.35 L Hgb 11.0 L Hct 35.6 L MCV 81.8 MCH 25.3 L MCHC 30.9 L RDW Std Deviation 45.1 H RDW Coeff of [place] 14.9 H Plt Count 198 MPV 13.0 H Immature Gran % (Auto) 1.100 H Neut % (Auto) 57.7 Lymph % (Auto) 29.1 [place] % (Auto) 8.4 Eos % (Auto) 3.3 Baso % (Auto) 0.4 Absolute Neuts (auto) 4.9 Absolute Lymphs (auto) 2.46 Nucleated RBC % 0 Sodium 140 Potassium 4.4 Chloride 106 Carbon Dioxide 24.0 Anion Gap 10 BUN 68 H Creatinine 4.15 H Estim Creat Clear Calc 15.11 Est GFR (MDRD) Af Amer 18 L Est GFR (MDRD) Non-Af 15 L BUN/Creatinine Ratio 16.4 Glucose 216 H Calcium 7.8 L Troponin I High Sens 72 Urine Color Yellow Urine Clarity Clear Urine pH 7.0 Ur Specific [place] 1.010 Urine Protein 500 H Urine Glucose (UA) 50 H Urine Ketones Negative Urine Occult Blood 25 H Urine Nitrite Negative Urine Bilirubin Negative Urine Urobilinogen Normal Ur Leukocyte Esterase Negative Urine RBC 0-5 SEEN Urine WBC 0 SEEN Ur Squamous Epith Cells 0-5 SEEN Urine Bacteria 0 SEEN Urine Mucus RARE EKG Initial EKG: Attestation: I personally reviewed and interpreted this EKG as follows: Comments: Ventricularly paced rhythm with a rate of 84 bpm Discharge Plan Triage Chief Complaint: Hypertension ED Provider: Aggie Vela Dx/Rx/DC Orders Clinical Impression: Hypertension Instructions: ED Hypertension, Established Prescriptions: New lorazepam [Ativan] 1 mg tablet 1 mg PO TID PRN (Reason: anxiety) Qty: 10 0RF No Action aspirin 81 mg tablet,chewable 81 mg PO DAILY glimepiride 4 mg tablet 4 mg PO DAILY prednisone 5 mg tablet 5 mg PO DAILY sodium bicarbonate 650 mg tablet 650 mg PO BID sulfamethoxazole-trimethoprim [Bactrim] 400-80 mg tablet 1 tab PO DAILY tacrolimus 0.5 mg capsule 2 mg PO DAILY atorvastatin 40 MG tablet 40 mg PO QHS dulaglutide 1.5 MG/0.5 ML pen injector 1.5 mg SQ REYNA Rx Instructions: takes on Wednesday ferrous sulfate 325 MG tablet 325 mg PO DAILY mycophenolate mofetil [CellCept] 250 mg Capsule 250 mg PO BID nifedipine [Procardia XL] 60 mg Tablet Extended Release 24hr 60 mg PO DAILY tacrolimus 1 mg Capsule 1 mg PO QHS lisinopril [Zestril] 5 mg tablet 5 mg PO BID Qty: 180 0RF Primary Care Provider: Sy Sharma Chi Referrals: Sy Sharma Chi, MD [Primary Care Provider] - 1 Day Disposition Disposition: Home, Self Care
[2022-01-27] MEDS: 0.9% Normal Saline 1,000 ML 150 ML IV (12:03)
[2022-01-27 12:11] LABS: Absolute Lymphocyte Count 2.46 X10^3/uL (0.83-4.51); Absolute Neutrophil Count 4.9 X10^3/uL (2.0-7.7); Basophil# 0.03 X10^3/uL; Basophil% 0.4 % (0-1); Eosinophil# 0.28 X10^3/uL; Eosinophils% 3.3 % (0-5); Hematocrit 35.6 % (40-54); Lymphocyte # 2.46 X10^3/ul (0.83-4.51); Lymphocyte % 29.1 % (19-41); Mean Corp Hgb Conc 30.9 g/dL (32-36); Mean Corpuscular Hgb 25.3 pg (27.0-32.0); Mean Corpuscular Volume 81.8 fL (80-94); Monocyte# 0.71 X10^3/uL; Monocyte% 8.4 % (0-10); NRBC Flagged by Analyzer 0 % (0-5); Neutrophil # 4.88 X10^3/uL (2.7-7.7); Neutrophil % 57.7 % (47-70); Platelet Count 198 K/mm3 (150-450); RBC Distribution Width CV 14.9 % (11.6-14.6); RBC Distribution Width SD 45.1 fl (35.1-43.9); Red Blood Count 4.35 M/mm3 (4.6-6.2); White Blood Count 8.5 K/mm3 (4.4-11.0)
[2022-01-27 12:23] LABS: Bacteria 0 SEEN /hpf (None Seen); White Blood Cells 0 SEEN /hpf (0-5)
[2022-01-27 12:29] LABS: Glucose, Dipstick 50 mg/dl (Normal); Ketone-Dipstick Negative (Negative); Leukocyte Esterase-Dipstick Negative /ul (Negative); Nitrite-Dipstick Negative (Negative); Occult Blood-Urine 25 /ul (Negative); Protein-Dipstick 500 mg/dl (Negative); Urine Bilirubin Dipstick Negative (Negative); Urine Urobilinogen Normal (Normal)
[2022-01-27 12:31] LABS: Color, Urine Yellow (Yellow); Urine Clarity Clear (Clear)
[2022-01-27 12:35] LABS: Anion Gap 10 (5-15); BUN 68 mg/dL (7-18); BUN/Creat Ratio 16.4 RATIO (10-20); Calcium,Total 7.8 mg/dL (8.5-10.1); Chloride 106 mmol/L (98-107); Creatinine, Serum 4.15 mg/dL (0.70-1.30); EST Glomerular Filtration Rate 15 mL/min (>60); Est Glom Filt Rate - Afr Amer 18 mL/min (>60); Estimated Creatinine Clearance 15.11 ml/min; Glucose 216 mg/dL (74-106); Potassium 4.4 mmol/L (3.5-5.1); Sodium Level 140 mmol/L (136-145); Troponin-I HS 72 pg/mL (3.0-78.0)
[2022-01-27 12:38] LABS: Mucous, Urine RARE /hpf (<or=2+); Red Blood Cells-Urine 0-5 SEEN /hpf (0-5); Squamous Epithelial Cells - UA 0-5 SEEN /hpf (0-5)
[2022-01-27] MEDS: hydrALAZINE 20 MG/ML Vial 5 MG IV (13:48)
[2022-01-27] MEDS: LORazepam 2 MG/ML Syringe 1 MG IV (14:45)
== END 2022-01-27 15:26 | disposition home or self-care (01) ==
PROVIDERS: Emergency Provider Emergency Medicine; PCP Family Medicine Geriatric Medicine; Visit Provider Emergency Medicine
DX: I10 Essential (primary) hypertension (principal); Z95.0 Presence of cardiac pacemaker
CPT/HCPCS: 80048; 81001; 84484; 85025; 93005; 96374; 96375; 99284; J7030; A4216

== ENCOUNTER 2022-05-06 16:06 | Inpatient (IN) | payer OTHER, MEDICARE, SELFPAY ==
[2022-05-06 16:07] VITALS: BP 148/68; PULSE 84; RESP 18; TEMP 36; O2SAT 93; BMI 35.6
[2022-05-06 16:35] VITALS: O2SAT 99
--- NOTE | 2022-05-06 16:37 | EKG12_ITS ---
Test Reason : STRESS TEST Blood Pressure : / mmHG Vent. Rate : 086 BPM Atrial Rate : 086 BPM P-R Int : 130 ms QRS Dur : 188 ms QT Int : 482 ms P-R-T Axes : 048 -58 111 degrees QTc Int : 576 ms Atrial-sensed ventricular-paced rhythm Abnormal ECG When compared with ECG of 06-MAY-2022 16:52, MANUAL COMPARISON REQUIRED, DATA IS UNCONFIRMED Confirmed by NEHMEIAH JOSEPH, QASIM ([id number]), newspaper photo editor ERON MOTLEY ([id number]) on 05/14/2022 10:51:42 AM Referred By: Confirmed By:QASIM CERNA MD
--- NOTE | 2022-05-06 16:58 | RAD_ITS ---
STUDY: X-RAY CHEST REASON FOR EXAM: Male, 76 years old. sob TECHNIQUE: AP portable COMPARISON: March 12, 2021 FINDINGS: Mild bilateral perihilar interstitial thickening with bronchovascular cuffing possibly representing mild pulmonary interstitial edema. Blunted right costophrenic angle possibly representing tiny effusion. Pacer noted on the left with electrodes in satisfactory position. Borderline cardiomegaly. Normal mediastinum and yoel. Normal visualized pulmonary arteries. Normal visualized aortic arch and descending thoracic aorta. Dorsal spine demonstrates degenerative change as do the shoulder joints. Normal visualized ribs and clavicles There is no demonstrated abnormality of the visualized soft tissue structures of the upper abdomen. RAD/Chest 1 View (Portable) IMPRESSION: Question mild pulmonary interstitial edema and tiny right pleural effusion.. Clinical correlation recommended Electronically Signed: Titi Almaguer MD at 17:12 EST ,
[2022-05-06 18:10] LABS: Troponin-I HS 198 pg/mL (3.0-78.0)
--- NOTE | 2022-05-06 18:49 | EDS_ITS ---
HPI History of Present Illness Chief Complaint: Shortness of Breath Informant: patient and spouse/S.O. Narrative Narrative: 76-year-old male presenting with shortness of breath. He states he typically has shortness of breath with exertion but this has been worsening to the point now he has shortness of breath even at rest. He denies chest pain. He has had increasing lower extremity swelling. He has gained 10 pounds in the last 2 weeks. He has a history of kidney transplant that is currently failing. He has been seen recently for planning for fistula. He has not yet started dialysis. Denies fever, cough. Prior similar symptoms: Yes Recent Illness/Hospitalization: No [facility] Medical History Anemia ARF (acute renal failure) Bradycardia Central line complication Chronic kidney disease, stage IV (severe) DM2 (diabetes mellitus, type 2) Essential hypertension High degree atrioventricular block History of complete heart block Hyperlipidemia Hypertensive urgency Kidney transplant candidate (01/31/19) Kidney transplant complication Pre-syncope Second degree heart block Type 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 Home Medications atorvastatin 40 mg tablet 40 mg PO QHS CHOLESTEROL 06/23/17 [History Last Taken 03/10/21 15:00] dulaglutide 1.5 mg/0.5 mL subcutaneous pen injector 1.5 mg SQ REYNA DIABETES 06/23/17 [History Last Taken 03/09/21] ferrous sulfate 325 mg (65 mg iron) tablet 325 mg PO DAILY supplement 10/24/18 [History Last Taken 03/10/21 09:00] aspirin 81 mg chewable tablet 81 mg PO DAILY heart health 10/02/20 [History Last Taken 03/10/21 09:00] glimepiride 4 mg tablet 4 mg PO DAILY diabetes 10/02/20 [History Last Taken 03/10/21 09:00] prednisone 5 mg tablet 5 mg PO DAILY steroid 10/02/20 [History Last Taken 03/10/21 09:00] sodium bicarbonate 650 mg tablet 650 mg PO BID supplement 10/02/20 [History Last Taken 03/10/21 15:00] sulfamethoxazole 400 mg-trimethoprim 80 mg tablet (Bactrim) 1 tab PO DAILY antibiotic 10/02/20 [History Last Taken 03/10/21 09:00] tacrolimus 0.5 mg capsule, immediate-release 2 mg PO DAILY immunosuppresive 10/02/20 [History Last Taken 03/10/21 15:00] mycophenolate mofetil 250 mg capsule (CellCept) 250 mg PO BID transplant med 03/11/21 [History Last Taken Unknown] nifedipine 60 mg tablet,extended release 24 hr (Procardia XL) 60 mg PO DAILY blood pressure 03/11/21 [History Last Taken Unknown] tacrolimus 1 mg capsule, immediate-release 1 mg PO QHS immunosuppresive 03/11/21 [History Last Taken 03/10/21] lisinopril 5 mg tablet (Zestril) 5 mg PO BID #180 tabs 03/12/21 [Rx Last Taken Unknown] lorazepam 1 mg tablet (Ativan) 1 mg PO TID PRN anxiety #10 tabs 01/27/22 [Rx Last Taken Unknown] Allergy/AdvReac Type Severity Reaction Status Date / Time No Known Allergies Allergy Verified 05/05/22 13:40 Family History Father Pneumonia Mother CVA (cerebral vascular accident) Surgical History History of permanent cardiac pacemaker placement (03/11/21) Renal transplant recipient S/P colonoscopy Status post kidney transplant [place] teeth removed Social History (Updated 05/06/22 @ 19:[address] Anamaria Duenas MD) household members: spouse Smoking Status: Former smoker how long ago did patient quit smoking: Quit 1993, 0.5 pk/day until quit. second hand exposure: Yes alcohol intake: current alcohol intake frequency: a few times a month substance use type: does not use ROS ROS ED Constitutional Constitutional ED: Denies fever(s) Eyes Eyes: Denies change in vision ENT ENT ED: Denies rhinorrhea or sore throat Cardiovascular Cardiovascular: Denies chest pain or palpitations Respiratory/Chest Respiratory/Chest: Reports dyspnea and dyspnea on exertion; Denies cough Gastrointestinal Gastrointestinal: Denies abdominal pain, diarrhea, nausea or vomiting Genitourinary Genitourinary ED: Denies dysuria Musculoskeletal Musculoskeletal: Denies myalgias Integumentary Denies rash Neurologic Neurologic: Denies headache(s) Psychiatric Psychiatric: Denies suicidal thoughts EXAM Physical Exam Const Vital Signs: 05/06/22 16:07 05/06/22 16:35 05/06/22 16:36 Temperature 96.8 F L Temperature Source Temporal Pulse Rate 84 Respiratory Rate 18 Respiratory Effort Short of Breath Blood Pressure 148/68 H Blood Pressure Mean 94 Pulse Ox 93 99 Oxygen Delivery Method Room Air Room Air 05/06/22 19:21 Temperature Temperature Source Pulse Rate 78 Respiratory Rate 15 Respiratory Effort Blood Pressure 144/78 H Blood Pressure Mean 100 Pulse Ox 99 Oxygen Delivery Method Room Air Positive well nourished and well developed General Appearance ED: well developed HEENT Reports normocephalic and head/scalp atraumatic Eyes PERRL and EOMs intact bilaterally Neck supple General: Negative for tenderness Chest Wall inspection of chest normal Resp normal respiratory effort Auscultation: diminished lung sounds Cardio regular rate and regular rhythm GI non-tender and non-distended Palpation: soft; Negative for guarding or rebound tenderness present no CVA tenderness Extremity General Extremety ED: Yes edema General Extremity: edema Neuro oriented x3 Sensorium / Orientation: alert Psych mental status grossly normal MDM MDM MDM Narrative Medical decision making narrative: Labs were obtained this afternoon and showed normal potassium, creatinine 5.2. BNP was obtained and is 961. Troponin is 198. EKG is paced at a rate of 77, unchanged from previous. Chest x-ray read by myself and radiology shows mild interstitial edema, tiny right pleural effusion. Discussed with hospitalist. Patient was given Lasix IV. He will be admitted to PCU. Lab Data Attestation: I reviewed the patient's lab results. Labs: Laboratory Results - last 24 hr 05/06/22 05/06/22 16:32 16:32 Troponin I High Sens 198 H* B-Natriuretic Peptide 961.0 H Radiography Chest X-Ray - ED: 1 View, Read by ED Physician and Read by Radiologist Diagnostic Testing: Clinical Impression(s) from Imaging Studies Chest X-Ray 05/06/22 16:58 IMPRESSION: Question mild pulmonary interstitial edema and tiny right pleural effusion.. Clinical correlation recommended Electronically Signed: Titi Almaguer MD at 17:12 EST Reading Location ID and State: [facility] / [place] , Service support , EKG Initial EKG: Attestation: I personally reviewed and interpreted this EKG as follows: Interpretation: No Acute Injury Pattern and Paced Discharge Plan Triage Chief Complaint: Shortness of Breath Other Complaint: Edema ED Provider: Herminia Jasmine Dx/Rx/DC Orders Clinical Impression: Acute exacerbation of CHF (congestive heart failure), CKD (chronic kidney disease) Prescriptions: No Action aspirin 81 mg tablet,chewable 81 mg PO DAILY glimepiride 4 mg tablet 4 mg PO DAILY prednisone 5 mg tablet 5 mg PO DAILY sodium bicarbonate 650 mg tablet 650 mg PO BID sulfamethoxazole-trimethoprim [Bactrim] 400-80 mg tablet 1 tab PO DAILY tacrolimus 0.5 mg capsule 2 mg PO DAILY atorvastatin 40 MG tablet 40 mg PO QHS dulaglutide 1.5 MG/0.5 ML pen injector 1.5 mg SQ REYNA Rx Instructions: takes on Wednesday ferrous sulfate 325 MG tablet 325 mg PO DAILY mycophenolate mofetil [CellCept] 250 mg Capsule 250 mg PO BID nifedipine [Procardia XL] 60 mg Tablet Extended Release 24hr 60 mg PO DAILY tacrolimus 1 mg Capsule 1 mg PO QHS lisinopril [Zestril] 5 mg tablet 5 mg PO BID Qty: 180 0RF lorazepam [Ativan] 1 mg tablet 1 mg PO TID PRN (Reason: anxiety) Qty: 10 0RF Primary Care Provider: Sy Sharma Chi Referrals: Sy Sharma Chi, MD [Primary Care Provider] - Disposition Disposition: Acute Care Hospital [facility]
[2022-05-06 19:21] VITALS: BP 144/78; PULSE 78; RESP 15; O2SAT 99
[2022-05-06] MEDS: Furosemide 100 MG/10 ML Vial 80 MG IV (19:55)
[2022-05-06 19:57] VITALS: BP 154/78; PULSE 74; RESP 18; TEMP 36.1; O2SAT 95
--- NOTE | 2022-05-06 20:56 | HP.PCM.HOS_ITS ---
HPI - General General Date of Admission: 05/06/22 Date of Service: 05/06/22 Chief Complaint: Dyspnea, weight gain, orthopnea. HPI Narrative The patient is a 76 y/o M w/ PMHx: Obesity, SUSAN, HTN, HLD, Heart block s/p pacemaker placement, Chronic anemia/Fe deficiency anemia/AOCD, Congenital renal disease s/p failing renal transplant with CKD stage IV currently preparing for HD, Diabetes mellitus type II with neuropathy/nephropathy who presents to the [facility] [place] ED on 05/06/22 with history of progressively worsening dyspnea, worse with exertion however now occurring at rest with orthopnea and increased lower extremity swelling with approximate 10 pound weight gain over the last 2 weeks awaking his on day of presentation secondary to evidence of increased respiratory rate and appearance of having difficulty catching his breath. He notes even trying to walk across the room he is felt short of breath of the last couple days. He did recently see vascular surgery Dr. Sorto day prior for initiation of fistula. He he has been attempting to figure out who he wants to establish with for nephrology and has decided on Dr. Kim. Work-up in the ED included T96.8, heart rate 84, BP 140/68, respiratory rate 18, initially 93% on room air with improvement to 99% at rest, troponin 198 with most recent prior to this 01/27/22 troponin 72, BNP 961 with most recent prior to this not since 2017, chest x-ray with pulmonary interstitial edema and a tiny right pleural effusion, EKG with paced rhythm with no acute evidence of ischemia. Labs performed prior to ED presentation on 05/06/2022 included CBC with WBC 11.5, hemoglobin 10.6, MCV 81.2, platelet 254 with left shift, CMP with BUN/creatinine 75/5.29, glucose 196 otherwise hepatic profile not marked appearing. [facility] Medical History Anemia ARF (acute renal failure) Bradycardia Central line complication Chronic kidney disease, stage IV (severe) DM2 (diabetes mellitus, type 2) Essential hypertension High degree atrioventricular block History of complete heart block Hyperlipidemia Hypertensive urgency Kidney transplant candidate (01/31/19) Kidney transplant complication Pre-syncope Second degree heart block Type 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 Home Medications atorvastatin 40 mg tablet 40 mg PO QHS CHOLESTEROL 06/23/17 [History Last Taken 03/10/21 15:00] dulaglutide 1.5 mg/0.5 mL subcutaneous pen injector 1.5 mg SQ REYNA DIABETES 06/23/17 [History Last Taken 03/09/21] ferrous sulfate 325 mg (65 mg iron) tablet 325 mg PO DAILY supplement 10/24/18 [History Last Taken 03/10/21 09:00] aspirin 81 mg chewable tablet 81 mg PO DAILY heart health 10/02/20 [History Last Taken 03/10/21 09:00] glimepiride 4 mg tablet 4 mg PO DAILY diabetes 10/02/20 [History Last Taken 03/10/21 09:00] prednisone 5 mg tablet 5 mg PO DAILY steroid 10/02/20 [History Last Taken 03/10/21 09:00] sodium bicarbonate 650 mg tablet 650 mg PO BID supplement 10/02/20 [History Last Taken 03/10/21 15:00] sulfamethoxazole 400 mg-trimethoprim 80 mg tablet (Bactrim) 1 tab PO DAILY antibiotic 10/02/20 [History Last Taken 03/10/21 09:00] tacrolimus 0.5 mg capsule, immediate-release 2 mg PO DAILY immunosuppresive 10/02/20 [History Last Taken 03/10/21 15:00] mycophenolate mofetil 250 mg capsule (CellCept) 250 mg PO BID transplant med 03/11/21 [History Last Taken Unknown] nifedipine 60 mg tablet,extended release 24 hr (Procardia XL) 60 mg PO DAILY blood pressure 03/11/21 [History Last Taken Unknown] tacrolimus 1 mg capsule, immediate-release 1 mg PO QHS immunosuppresive 03/11/21 [History Last Taken 03/10/21] lisinopril 5 mg tablet (Zestril) 5 mg PO BID #180 tabs 03/12/21 [Rx Last Taken Unknown] lorazepam 1 mg tablet (Ativan) 1 mg PO TID PRN anxiety #10 tabs 01/27/22 [Rx Last Taken Unknown] Allergy/AdvReac Type Severity Reaction Status Date / Time No Known Allergies Allergy Verified 05/05/22 13:40 Family History Father Pneumonia Mother CVA (cerebral vascular accident) Surgical History History of permanent cardiac pacemaker placement (03/11/21) Renal transplant recipient S/P colonoscopy Status post kidney transplant [place] teeth removed Social History (Updated 05/06/22 @ 19:[address] Anamaria Duenas MD) household members: spouse Smoking Status: Former smoker how long ago did patient quit smoking: Quit 1993, 0.5 pk/day until quit. second hand exposure: Yes alcohol intake: current alcohol intake frequency: a few times a month substance use type: does not use ROS ROS Narrative Admission Review of Systems: CONSTITUTIONAL: No weight loss, fever, chills,+ weakness or fatigue, weight gain. HEENT: Eyes: No visual loss, blurred vision, double vision or yellow sclerae. Ears, Nose, Throat: No hearing loss, sneezing, congestion, runny nose or sore throat. SKIN: No rash or itching, lesions, wounds. CARDIOVASCULAR: + Orthopnea, edema, recent weight gain. No chest pain, chest pressure or chest discomfort, palpitations, syncopal events. RESPIRATORY: + shortness of breath, No cough or sputum, wheezing, hemoptysis. GASTROINTESTINAL: No anorexia, nausea, vomiting or diarrhea, abdominal pain, melena, BRBPR. GENITOURINARY: No dysuria, frequency, urgency or retention. NEUROLOGICAL: No headache, dizziness, syncope, paralysis, ataxia, numbness or tingling in the extremities, focal weakness, change in bowel or bladder control, seizure. MUSCULOSKELETAL: + muscle, back pain, joint pain or stiffness. HEMATOLOGIC: + anemia, bleeding or bruising. LYMPHATICS: No enlarged nodes. No history of splenectomy. PSYCHIATRIC:+ history of depression or anxiety. ENDOCRINOLOGIC: No reports of sweating, cold or heat intolerance. No polyuria or polydipsia. ALLERGIES: No history of asthma, hives, eczema or rhinitis. Vital Signs Vital Signs Vital Signs: 05/06/22 16:07 05/06/22 16:35 05/06/22 16:36 Temperature 96.8 F L Temperature Source Temporal Pulse Rate 84 Respiratory Rate 18 Respiratory Effort Short of Breath Blood Pressure 148/68 H Blood Pressure Mean 94 Pulse Ox 93 99 Oxygen Delivery Method Room Air Room Air 05/06/22 19:21 Temperature Temperature Source Pulse Rate 78 Respiratory Rate 15 Respiratory Effort Blood Pressure 144/78 H Blood Pressure Mean 100 Pulse Ox 99 Oxygen Delivery Method Room Air Weight Weight: 234 lb Body Mass Index (BMI) 35.6 Physical Exam Narrative Physical Examination: General: Awake, alert, oriented x 3 and cooperative, seated upright in the ED bed, fatigued otherwise no acute distress. Skin: Normal color, normal turgor, no icterus, no cyanosis. HEENT: AT/NC, EOMI, PERRLA, MMM, no carotid bruits, + JVD. Lungs: Diminished, greater bases, mild rales, no evidence of any distress, no rhonchi or wheezing. Heart: Regular, paced; no gallop, rub audible. Abdomen: Soft, obese, NTTP, difficult to assess distention but feels at [place], distant BS, difficult to assess HSM given habitus Extremities: No cyanosis, no clubbing, mild peripheral nonpitting edema. Neurological: Patient awake, alert, oriented as noted, cognitive function intact; pupils equally reactive to light and accommodation, cranial nerves II- XII grossly normal, moving all 4 extremities, no focal deficits, strength moderately to severely global decrease secondary to acute presentation complaints Psychiatric: Affect appears fatigued, no acute evidence of depressive or anxiety feelings. Results Lab / Micro Data Labs: Laboratory Results - last 24 hr 05/06/22 16:32: Troponin I High Sens 198 H* 05/06/22 16:32: B-Natriuretic Peptide 961.0 H Radiology Impression Chest X-Ray 05/06/22 16:58 IMPRESSION: Question mild pulmonary interstitial edema and tiny right pleural effusion.. Clinical correlation recommended Electronically Signed: Titi Almaguer MD at 17:12 EST , Assessment & Plan Assessment/Plan (1) Acute exacerbation of CHF (congestive heart failure): PLAN: Plan The patient is a 76 y/o M w/ PMHx: Obesity, SUSAN, HTN, HLD, Heart block s/p pacemaker placement, Chronic anemia/Fe deficiency anemia/AOCD, Congenital renal disease s/p failing renal transplant with CKD stage IV currently preparing for HD, Diabetes mellitus type II with neuropathy/nephropathy who presents to the [facility] [place] ED on 05/06/22 with history of progressively worsening dyspnea, worse with exertion however now occurring at rest with orthopnea and increased lower extremity swelling with approximate 10 pound weight gain over the last 2 weeks awaking his on day of presentation secondary to evidence of increased respiratory rate and appearance of having difficulty catching his breath. #1. Acute CHF, Unclear type, Suspect Diastolic: Will admit to PCU, maintain on cardiac telemetry, obtain cardiac enzyme series, obtain serial EKGs, continue IV lasix diuresis pending nephrology assessment, monitor I/Os, maintain on intake restriction, continue medical, obtain TSH and magnesium level. Most recent ECHO noted 03/10/2021 with normal LV size, mild concentric LVH, normal LV systolic function, EF 70% with contrast injection performed at that time thus will request repeat. Cardiology consulted, pending. PRN morphine to decrease afterload, continue oxygen supplementation, if necessary will position w/ upright position with legs off bed to decrease preload. #2. Chronic Kidney Disease Stage IV, congenital renal disease, progressively worsening with failing renal transplant: Admission BUN/Cr 75/5.29, baseline renal function more recently has been trending upward given renal transplant failing, creatinine prior to this 4.9-5.0 most recently 04/22/2022 creatinine 5.06, repeat BMP in AM. Patient with recent evaluation per surgery 05/05/2022 for fistula creation for dialysis planned initiation. We will continue patient home tacrolimus, CellCept and prednisone low-dose regimen as well as prophylactic Bactrim and sodium bicarb regimen. Nephrology consulted given o ngoing planned initiation of dialysis. #3. Diabetes mellitus type II with chronic neuropathy, nephropathy: Hold oral home regimen, continue home insulin regimen, ADA diet, accu checks w/ ISS. #4. Chronic normocytic anemia, iron deficiency anemia, AOCD: Admission hemoglobin 05/06/2022 performed prior to presentation 10.6, baseline 9-10, stable, continue to trend, continue oral iron supplementation, following with Dr. Hanks with hematology/oncology. #5. Hypertension: Continue home regimen including nifedipine, lisinopril, IV Lasix as noted above, PRN hydralazine. #6. Hyperlipidemia: We will continue patient on statin therapy, FLP in AM. #7. Former tobacco use: Encourage continued tobacco cessation. #8. History of complete heart block: Status post pacemaker placement, encourage continued follow-up with cardiology. #9. Anxiety and depression: We will continue patient home low-dose Ativan as needed, would benefit greatly from counseling and also consideration of additional medication for his underlying depression which has been worsening since continued failure of his transplant kidney. #10. Obesity: Weight loss and lifestyle changes encouraged. #11. SUSAN: CPAP nightly if amenable. #12. DVT prophylaxis: SCDs, heparin. #13. CODE status: Discussed CODE status at length including difference between FULL code, DNR-CCA and DNR-CC status. Following discussions about the differences in these status, requested Full Code status. Admission Evaluation Time spent evaluating chart, patient history, patient evaluation, care planning and discussion with specialists: 75 minutes. Charges/Coding Visit Charges Inpatient E&M: 73636 Init Hosp L3
[2022-05-06 21:20] LABS: Magnesium 2.1 mg/dL (1.6-2.6); Phosphorus 6.6 mg/dL (2.5-4.9)
[2022-05-06 21:45] VITALS: BMI 24.3
[2022-05-06 22:00] VITALS: RESP 18; O2SAT 98
[2022-05-06 22:30] VITALS: O2SAT 98
[2022-05-06 23:31] LABS: Troponin-I HS 184 pg/mL (3.0-78.0)
[2022-05-06] MEDS: Heparin Injection (Vial) 5,000 UNIT/ML VIAL 5000 UNIT SC (23:45)
[2022-05-06] MEDS: Sodium Bicarbonate 650 MG Tablet PO (23:46)
[2022-05-07] VITALS (7 sets, daily range): BP systolic 137–182; BP diastolic 68–82; PULSE 83–94; RESP 12–18; TEMP 36.7–37.3; O2SAT 91–97
[2022-05-07 00:19] LABS: Troponin-I HS 221 pg/mL (3.0-78.0)
[2022-05-07 00:20] LABS: Bedside Glucose 145 mg/dL (74-106)
[2022-05-07 04:48] LABS: Absolute Lymphocyte Count 1.38 X10^3/uL (0.83-4.51); Absolute Neutrophil Count 6.5 X10^3/uL (2.0-7.7); Basophil# 0.03 X10^3/uL; Basophil% 0.3 % (0-1); Eosinophil# 0.36 X10^3/uL; Eosinophils% 3.9 % (0-5); Hematocrit 31.7 % (40-54); Hemoglobin 9.6 g/dL (13.0-16.5); Lymphocyte # 1.38 X10^3/ul (0.83-4.51); Mean Corp Hgb Conc 30.3 g/dL (32-36); Mean Corpuscular Hgb 24.7 pg (27.0-32.0); Mean Corpuscular Volume 81.5 fL (80-94); Mean Platelet Vol. 11.2 fl (6.2-12.0); Monocyte# 0.88 X10^3/uL; Monocyte% 9.6 % (0-10); NRBC Flagged by Analyzer 0 % (0-5); Neutrophil # 6.51 X10^3/uL (2.7-7.7); Platelet Count 213 K/mm3 (150-450); RBC Distribution Width CV 15.6 % (11.6-14.6); RBC Distribution Width SD 45.1 fl (35.1-43.9); Red Blood Count 3.89 M/mm3 (4.6-6.2); White Blood Count 9.2 K/mm3 (4.4-11.0)
[2022-05-07 05:47] LABS: ALB/GLOB Ratio 0.7 RATIO (0.9-2.4); AST(SGOT) 13 U/L (15-37); Alanine Aminotransfer ALT/SGPT 17 U/L (16-61); Albumin, Serum 2.4 g/dL (3.2-5.0); Alkaline Phosphatase 63 U/L (45-117); Anion Gap 11 (5-15); BUN 80 mg/dL (7-18); Chloride 105 mmol/L (98-107); Cholesterol 120 mg/dL (200); Creatinine, Serum 5.34 mg/dL (0.70-1.30); EST Glomerular Filtration Rate 11 mL/min (>60); Est Glom Filt Rate - Afr Amer 14 mL/min (>60); Estimated Creatinine Clearance 16.48 ml/min; Globulin 3.3 g/dL (2.2-4.2); Glucose 146 mg/dL (74-106); High Density Lipoprotein 56 mg/dL; Potassium 4.8 mmol/L (3.5-5.1); Protein, Total 5.7 g/dL (6.4-8.2); Sodium Level 142 mmol/L (136-145); Triglycerides 149 mg/dL; Very Low Density Lipoprotein 30 mg/dL (5-40)
--- NOTE | 2022-05-07 05:55 | ECHOD_ITS ---
Reason For Study: CHF EXACERBATION Procedure This was a 2D Doppler, Color Flow transthoracic echocardiogram. The exam was of adequate technical quality. Exam performed portable in patient room. Left Ventricle Normal LV size. Mid cavitary false tendon noted. Left ventricular systolic function is normal. The estimated ejection fraction is 65 %. Paced septal motion. Stage 2 diastolic dysfunction. Apical wall motion abnormality may reflect pacemaker activation. Right Ventricle Normal RV size. ICD or pacer leads identified within the right ventricle. Normal systolic function. Atria The left atrium is mildly enlarged. Normal right atrium. ICD or pacer leads identified within the right atrium. No doppler evidence for ASD. Mitral Valve There is no mitral annular calcification. Normal mitral valve. Mild (1+) mitral valve insufficiency. Tricuspid Valve Normal tricuspid valve. Trivial tricuspid valve insufficiency. Right ventricular systolic pressure estimated to be 38 mmHg. Aortic Valve Trisinus/trileaflet aortic valve. Mild focal aortic valve calcification. Mild aortic stenosis. Pulmonic Valve The pulmonic valve is not well visualized. Great Vessels Normal sized aortic root. Calcified aortic root. Pericardium/Pleural No pericardial effusion. Epicardial fat. MMode/2D Measurements & Calculations LVIDd: 5.5 cm IVSd: 1.3 cm LVOT diam: 2.0 cm LVIDs: 4.0 cm LVPWd: 1.2 cm LVOT area: 3.3 cm2 RVDd: 4.0 cm FS: 26.7 % Ao root diam: 3.2 cm LAV(MOD-bp): 44.4 ml LVAd ap4: 40.3 cm2 LAV(MOD-bp) Indexed: 20.5 ml/m2 LVLd ap4: 8.5 cm LAV(MOD-sp2): 47.0 ml EDV(MOD-sp4): 159.4 ml LAV(MOD-sp4): 41.9 ml EDV(sp4-el): 162.9 ml LVAs ap4: 28.5 cm2 LVLs ap4: 7.6 cm ESV(MOD-sp4): 89.7 ml ESV(sp4-el): 91.2 ml EF(MOD-sp4): 43.8 % EF(sp4-el): 44.0 % SV(MOD-sp4): 69.8 ml SV(sp4-el): 71.7 ml LA A4 area: 15.5 cm2 LA dimension(2D): 4.1 cm RA A4 area: 14.4 cm2 Time Measurements MV dec time: 0.14 sec Doppler Measurements & Calculations MV E max carlos manuel: 95.2 cm/sec Lat Peak E' Carlos Manuel: 7.2 cm/sec Med Peak E' Carlos Manuel: 6.7 cm/sec MV A max carlos manuel: 124.8 cm/sec E/E' lat: 13.2 E/E' med: 14.3 MV E/A: 0.76 Ao V2 max: 244.7 cm/sec LV V1 max: 120.0 cm/sec SV(LVOT): 82.8 ml Ao max P.0 mmHg LV V1 max P.8 mmHg Ao V2 mean: 174.6 cm/sec LV V1 mean P.0 mmHg Ao mean P.0 mmHg LV V1 mean: 78.8 cm/sec Ao V2 VTI: 48.1 cm LV V1 VTI: 25.4 cm AV (velocity ratio): 0.53 MARTIN(I,D): 1.7 cm2 MARTIN(V,D): 1.6 cm2 PA V2 max: 112.9 cm/sec TR max carlos manuel: 295.4 cm/sec TR max P.9 mmHg ECHO/Echo Complete Interpretation Summary Left ventricular systolic function is normal. The estimated ejection fraction is 65 %. Paced septal motion. Apical wall motion abnormality may reflect pacemaker activation. Mid cavitary false tendon noted. The left atrium is mildly enlarged. Mild (1+) mitral valve insufficiency. Trivial tricuspid valve insufficiency. Mild focal aortic valve calcification. Mild aortic stenosis. Calcified aortic root. Epicardial fat. Right ventricular systolic pressure estimated to be 38 mmHg. Stage 2 diastolic dysfunction. ICD or pacer leads identified within the right atrium ICD or pacer leads identified within the right ventricle. Ordering Physician: Anamaria Duenas Referring Physician: SHOSHANA OSORIO Performed By: Rebecca Clements RDCS
[2022-05-07] MEDS: Furosemide 100 MG/10 ML Vial 60 MG IV ×3 (06:24→21:13)
--- NOTE | 2022-05-07 08:05 | PN.HOSP_ITS ---
Subjective Subjective This is a 76-year-old white male who presented to emergency department with progressively worsening shortness of breath that was occurring at rest and with exertion as well as orthopnea and increased lower extremity edema. He reported a 10 pound weight gain in the last 2 weeks. He does have known CKD stage IV and is preparing for hemodialysis and saw Dr. Bradford for fistula placement recently. He was admitted for acute exacerbation of CHF. Patient states that overall he is feeling better today. Less shortness of breath and swelling has improved. Objective Data Objective Data Vital Signs: Vital Signs Temp Pulse Resp BP Pulse Ox O2 Del Method 97.0 F L 74 18 154/78 H 97 Room Air 05/06/22 19:57 05/06/22 19:57 05/07/22 06:01 05/06/22 19:57 05/07/22 06:01 05/07/22 06:01 Oxygen Delivery Method Room Air Weight: 103.9 kg Body Mass Index (BMI) 24.3 Intake & Output: Intake and Output for Last 24 Hours 05/05/22 05/06/22 05/07/22 23:59 23:59 23:59 Output Total 900 / 900 50 / 50 Balance -900 / -900 -50 / -50 Lab / Micro Data Result Diagrams: 05/07/22 04:19 05/07/22 04:19 Labs: Laboratory Results - last 24 hr 05/06/22 16:32: Troponin I High Sens 198 H* 05/06/22 16:32: B-Natriuretic Peptide 961.0 H 05/06/22 16:32: Phosphorus 6.6 H, Magnesium 2.1 05/06/22 18:36: Troponin I High Sens 184 H* 05/06/22 23:27: Troponin I High Sens 221 H* 05/06/22 23:52: POC Glucose 145 H 05/07/22 04:19: WBC 9.2, RBC 3.89 L, Hgb 9.6 L, Hct 31.7 L, MCV 81.5, MCH 24.7 L , MCHC 30.3 L, RDW Std Deviation 45.1 H, RDW Coeff of Yanely 15.6 H, Plt Count 213, MPV 11.2, Immature Gran % (Auto) 0.200, Neut % (Auto) 71.0 H, Lymph % (Auto) 15.0 L, [place] % (Auto) 9.6, Eos % (Auto) 3.9, Baso % (Auto) 0.3, Absolute Neuts (auto) 6.5, Absolute Lymphs (auto) 1.38, Nucleated RBC % 0 05/07/22 04:19: Sodium 142, Potassium 4.8, Chloride 105, Carbon Dioxide 26.0, Anion Gap 11, BUN 80 H, Creatinine 5.34 H, Estim Creat Clear Calc 16.48, Est GFR (MDRD) Af Amer 14 L, Est GFR (MDRD) Non-Af 11 L, BUN/Creatinine Ratio 15.0, Glucose 146 H, Calcium 6.0 L*, Total Bilirubin 0.40, AST 13 L, ALT 17, Alkaline Phosphatase 63, Total Protein 5.7 L, Albumin 2.4 L, Globulin 3.3, Albumin/Globulin Ratio 0.7 L, Triglycerides 149, Cholesterol 120, LDL Cholesterol 34, VLDL Cholesterol 30, HDL Cholesterol 56 Radiography Diagnostic Testing: Radiology Impression Chest X-Ray 05/06/22 16:58 IMPRESSION: Question mild pulmonary interstitial edema and tiny right pleural effusion.. Clinical correlation recommended Electronically Signed: Titi Almaguer MD at 17:12 EST Reading Location ID and State: [facility] / [place] , Service support , Physical Exam Const alert, oriented x3, no apparent distress and well nourished Constitutional Narrative: Obese, male, resting comfortably in bed, appears comfortable and nontoxic HEENT head/scalp atraumatic and moist oral mucous membranes HEENT Narrative: Mallampati 3, no thrush Head and Scalp: normocephalic Resp normal respiratory effort, no retractions and no use of accessory muscles Resp Narrative: Few crackles at bases bilaterally Auscultation: crackles; Negative for rhonchi or wheezes Cardio regular rate, regular rhythm, S1 normal heart sound, S2 normal heart sound, no murmurs, no rub, no gallops and no clicks Extremity no clubbing, cyanosis or edema Extremity Narrative: 2+ pedal pulses Neuro oriented x3, moves all extremities and no focal motor deficits Speech: speech normal Psych affect normal Psych Narrative: Very pleasant Assessment & Plan Assessment/Plan (1) Acute exacerbation of CHF (congestive heart failure): (2) Elevated troponin I level: PLAN: Plan Acute exacerbation of HFpEF -Likely related to volume overload with renal dysfunction -Not requiring any supplemental oxygen at this time -Chest x-ray only looks mildly volume overloaded -Patient does make urine so we will continue diuretics at this time -Daily weights -Strict I's and O's -Fluid restriction -Sodium restriction -Continue home lisinopril -Echo is pending -Cardiology and nephrology are consulted Troponin elevation -Patient with only shortness of breath and no chest pain -This is in the setting of severe renal dysfunction and I suspect that likely related to that rather than any acute coronary event -Cardiology is following and may perform some noninvasive testing prior to discharge -Await clinical recommendations CKD stage IV -Patient with history of renal transplant -Continue home prednisone -Can any home bicarb -continue home Bactrim -Continue home tacrolimus -Nephrology is consulted Hypertension/hyperlipidemia -Continue home -Continue ProAir -Continue home -Echocardiogram is pending DM-2 -Hold home glimepiride -Hold home Trulicity -Sliding scale -Accu-Cheks -Carb controlled diet History of complete heart block -Patient has permanent pacemaker placed on 03/11/2021 DVT prophylaxis -Continue subcu heparin -SCDs CODE STATUS -full code Charges/Coding Visit Charges Inpatient E&M: 51078 Subs Hosp L2
[2022-05-07] MEDS: Smz/Tmp Ds Tablet 0.5 TABLET PO (08:15)
[2022-05-07] MEDS: Aspirin 81 MG TAB.CHEW PO (08:15)
[2022-05-07] MEDS: Heparin Injection (Vial) 5,000 UNIT/ML VIAL 5000 UNIT SC ×2 (08:16→21:13)
[2022-05-07] MEDS: predniSONE 5 MG Tablet PO (08:16)
[2022-05-07] MEDS: Mycophenolate Mofetil 250 MG Capsule PO ×2 (08:16→21:13)
[2022-05-07] MEDS: NIFEdipine 60 MG Tablet PO (08:16)
[2022-05-07] MEDS: Tacrolimus Anhydrous 1 MG Capsule 2 MG PO (08:16)
[2022-05-07] MEDS: Sodium Bicarbonate 650 MG Tablet PO ×2 (08:17→21:14)
[2022-05-07] MEDS: Ferrous Sulfate 325 MG Tablet PO (08:17)
[2022-05-07] MEDS: Lisinopril 5 MG Tablet PO ×2 (08:17→21:29)
[2022-05-07 08:20] LABS: Bedside Glucose 137 mg/dL (74-106)
[2022-05-07] MEDS: 0.9% Saline Lock 10 ML Syringe IV ×2 (09:15→13:26)
[2022-05-07] MEDS: Insulin Lispro 100 UNIT/ML INSULN.PEN SC ×3 (11:06→21:25)
[2022-05-07 11:21] LABS: Bedside Glucose 189 mg/dL (74-106)
[2022-05-07] MEDS: Sodium Chloride 0.65% 1 SPRAY SPRAY.BTL NASAL (11:41)
--- NOTE | 2022-05-07 14:05 | CASEMGMT ---
RN CM Face to Face with patient for initial transition planning/care coordination assessment. RN CM introduced self and role at [facility]. Patient lying in bed, alert and oriented. Patient willing to participate in assessment and is able to answer all questions appropriately. Care providers, pharmacy, and demographics verified. Patient wishes to discharge home, denies need for home health at this time. Patient states he has no further needs or concerns at this time. CM to follow for discharge planning needs that may arise. PCP: Zachary Specialists: Calderon, proofsheet corrector; Demario, oncologist; [facility] transplant team Preferred Pharmacy: [facility] retail Insurance: [facility] [id number] Prescription Benefit: yes Living Will/HPOA: yes, Milena Garcia LNOK: , children Living Arrangements: Patient lives with in 2 story home with bed and bath on first floor. 3 steps and railing to enter the home. Transportation: self, DME/HHC: Patient has shower chair, raised toilet, and cpap at home. No previous HHC or SNF Disposition Plan: Patient to discharge home with family support and follow-up plans in place. Frida KNAPP, RN, CM
--- NOTE | 2022-05-07 14:05 | PCM.CONS.R ---
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 There was a question if there is a familial variant of FSGS since his biologic sister was diagnosed with FSGS about the same time. Somewhat unusual for this later onset FSGS. We might set him up with genetic testing for prognostication of family members in the future. Unfortunately he is closer to dialysis. Borderline uremic symptoms. No acute indications for dialysis. Only current issue is fluid overload. Troponins are elevated. Will wait for cardiology input. Last time he had a preemptive kidney transplant, never did dialysis. He is familiar with in center dialysis, home dialysis, peritoneal dialysis, home hemodialysis. He is interested in home hemodialysis. AV fistula placement is already in progress. Continue IV Lasix for now for fluid overload. HPI Consult Data Date of Consult: 05/07/22 HPI Narrative Reason for Consultation: CKD 5 HPI Narrative: POLINA GANDARA, is a 76 M who presents to the hospital with shortness of breath. Nephrology on consultation due to renal failure. Reviewed records from [facility] system. He has known history of CKD which was initially thought to be related to diabetes and hypertension. Had a preemptive kidney transplant in 2019. Fairly stable course until a year later when he started having proteinuria. Genetic markers for rejection was negative initially. Proteinuria was thought to be from his [place] kidneys. Subsequently proteinuria worsened and he ended up having a kidney biopsy in 2020. Was diagnosed with FSGS. Incidentally his biologic sister who lives in [place] was also diagnosed with FSGS about the same time. He was already on immunosuppression, did a trial of plasmapheresis. This was complicated by line infection, E. coli bacteremia. Line was removed, treated with antibiotics. Unfortunately had worsening of renal function. Currently creatinine is more than 5. He was in touch with [facility] about possible AV fistula placement, he saw Dr. gonzalez here. Vein mapping done. Was planned to have a right arm radiocephalic fistula, waiting on procedure date. Presented with shortness of breath. He was on torsemide 40 mg daily at home. Troponins are slightly elevated. Denies any urinary complaints. [facility] Medical History Anemia ARF (acute renal failure) Bradycardia Central line complication Chronic kidney disease, stage IV (severe) DM2 (diabetes mellitus, type 2) Essential hypertension High degree atrioventricular block History of complete heart block Hyperlipidemia Hypertensive urgency Kidney transplant candidate (01/31/19) Kidney transplant complication Pre-syncope Second degree heart block Type 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 Home Medications atorvastatin 40 mg tablet 40 mg PO QHS CHOLESTEROL 06/23/17 [History Last Taken 03/10/21 15:00] dulaglutide 1.5 mg/0.5 mL subcutaneous pen injector 1.5 mg SQ REYNA DIABETES 06/23/17 [History Last Taken 03/09/21] ferrous sulfate 325 mg (65 mg iron) tablet 325 mg PO DAILY supplement 10/24/18 [History Last Taken 03/10/21 09:00] aspirin 81 mg chewable tablet 81 mg PO DAILY heart health 10/02/20 [History Last Taken 03/10/21 09:00] glimepiride 4 mg tablet 4 mg PO DAILY diabetes 10/02/20 [History Last Taken 03/10/21 09:00] prednisone 5 mg tablet 5 mg PO DAILY steroid 10/02/20 [History Last Taken 03/10/21 09:00] sodium bicarbonate 650 mg tablet 650 mg PO BID supplement 10/02/20 [History Last Taken 03/10/21 15:00] sulfamethoxazole 400 mg-trimethoprim 80 mg tablet (Bactrim) 1 tab PO DAILY antibiotic 10/02/20 [History Last Taken 03/10/21 09:00] tacrolimus 0.5 mg capsule, immediate-release 2 mg PO DAILY immunosuppresive 10/02/20 [History Last Taken 03/10/21 15:00] mycophenolate mofetil 250 mg capsule (CellCept) 250 mg PO BID transplant med 03/11/21 [History Last Taken Unknown] nifedipine 60 mg tablet,extended release 24 hr (Procardia XL) 60 mg PO DAILY blood pressure 03/11/21 [History Last Taken Unknown] tacrolimus 1 mg capsule, immediate-release 1 mg PO QHS immunosuppresive 03/11/21 [History Last Taken 03/10/21] lisinopril 5 mg tablet (Zestril) 5 mg PO BID #180 tabs 03/12/21 [Rx Last Taken Unknown] lorazepam 1 mg tablet (Ativan) 1 mg PO TID PRN anxiety #10 tabs 01/27/22 [Rx Last Taken Unknown] Allergy/AdvReac Type Severity Reaction Status Date / Time No Known Allergies Allergy Verified 05/05/22 13:40 Family History Father Pneumonia Mother CVA (cerebral vascular accident) Surgical History History of permanent cardiac pacemaker placement (03/11/21) Renal transplant recipient S/P colonoscopy Status post kidney transplant [place] teeth removed Social History household members: spouse Smoking Status: Former smoker how long ago did patient quit smoking: Quit 1993, 0.5 pk/day until quit. second hand exposure: Yes alcohol intake: current alcohol intake frequency: a few times a month substance use type: does not use ROS ROS Narrative Negative except above Physical Exam Narrative Alert awake oriented x 3 no obvious distress no pallor no icterus no JVD s1s2 no murmurs lungs clear abdomen soft no organomegaly no edema no cyanosis Lab / Micro Data Result Diagrams: 05/07/22 04:19 05/07/22 04:19 Labs: Laboratory Results - last 24 hr 05/06/22 16:32: Troponin I High Sens 198 H* 05/06/22 16:32: B-Natriuretic Peptide 961.0 H 05/06/22 16:32: Phosphorus 6.6 H, Magnesium 2.1 05/06/22 18:36: Troponin I High Sens 184 H* 05/06/22 23:27: Troponin I High Sens 221 H* 05/06/22 23:52: POC Glucose 145 H 05/07/22 04:19: WBC 9.2, RBC 3.89 L, Hgb 9.6 L, Hct 31.7 L, MCV 81.5, MCH 24.7 L, MCHC 30.3 L, RDW Std Deviation 45.1 H, RDW Coeff of Yanely 15.6 H, Plt Count 213, MPV 11.2, Immature Gran % (Auto) 0.200, Neut % (Auto) 71.0 H, Lymph % (Auto) 15.0 L, [place] % (Auto) 9.6, Eos % (Auto) 3.9, Baso % (Auto) 0.3, Absolute Neuts (auto) 6.5, Absolute Lymphs (auto) 1.38, Nucleated RBC % 0 05/07/22 04:19: Sodium 142, Potassium 4.8, Chloride 105, Carbon Dioxide 26.0, Anion Gap 11, BUN 80 H, Creatinine 5.34 H, Estim Creat Clear Calc 16.48, Est GFR (MDRD) Af Amer 14 L, Est GFR (MDRD) Non-Af 11 L, BUN/Creatinine Ratio 15.0, Glucose 146 H, Calcium 6.0 L*, Total Bilirubin 0.40, AST 13 L, ALT 17, Alkaline Phosphatase 63, Total Protein 5.7 L, Albumin 2.4 L, Globulin 3.3, Albumin/Globulin Ratio 0.7 L, Triglycerides 149, Cholesterol 120, LDL Cholesterol 34, VLDL Cholesterol 30, HDL Cholesterol 56 05/07/22 06:33: POC Glucose 137 H 05/07/22 11:00: POC Glucose 189 H Radiology Impression Chest X-Ray 05/06/22 16:58 IMPRESSION: Question mild pulmonary interstitial edema and tiny right pleural effusion.. Clinical correlation recommended Electronically Signed: Titi Almaguer MD at 17:12 EST ,
--- NOTE | 2022-05-07 15:33 | CON.PCM.CA_ITS ---
Assessment & Plan Assessment/Plan (1) Elevated troponin I level: PLAN: The patient does have elevated high-sensitivity troponin I levels. This is in the setting of his chronic renal insufficiency/failure. At the present time it does not appear he has symptoms of acute coronary syndrome suggestive of a type I event. Thus this appears more compatible with a type II event brought out by his volume overload with respect to his acute renal insufficiency. From a cardiac standpoint he can be reassessed for any change in his left ventr icular wall motion and systolic function with a transthoracic echocardiogram. Depending upon his clinical course he may or may not need further evaluation from a cardiovascular standpoint with respect to any evidence of coronary artery disease. At that time it would be reasonable to consider a pharmacologic stress nuclear imaging study as an IV contrast study such as a diagnostic cardiac catheterization could place him at increased risk for IV contrast related nephropathy and hasten his need for hemodialysis therapy. (2) Acute exacerbation of CHF (congestive heart failure): PLAN: The patient does have the appearance of acute on chronic heart failure preserved ejection fraction. This may be brought out by his progressive renal insufficiency and volume overload. The present time he will continue medical therapy which does include his IV furosemide therapy. However he may need to be considered for a temporary dialysis catheter to help manage his volume status. (3) History of permanent cardiac pacemaker placement: PLAN: He does have a history of high-grade AV block/conduction system disease. He is status post permanent pacemaker placement. It appears his pacer is functioning appropriately at this time. (4) Essential hypertension: PLAN: He does have a history of hypertension. His medications can be adjusted taking into consideration his renal insufficiency. Thus he may need other agents, unless contraindicated, in addition to his dihydropyridine therapy and his low-dose ZENAIDA inhibitor therapy, which could include agents such as Apresoline/hydralazine. Addt'l Comments The patient's case was discussed and reviewed with the patient. Comment: Time spent in the patient's overall evaluation, examination, review of medical records, review of radiologic studies, documentation, and discussion: 45 minutes. HPI Consult Data Date of Consult: 05/07/22 HPI Narrative HPI Narrative: POLINA GANDARA, is a 76 year old white male who presents for cardiovascular consultation based upon concerns of progressive shortness of breath and volume overload superimposed upon a history of underlying conduction system disease status post permanent pacemaker placement, hyperlipidemia, hypertension, and diabetes mellitus superimposed upon history of congenital renal disease status post renal [id number] chronic renal insufficiency being prepared for hemodialysis therapy with chronic anemia. He reported being progressively short of breath and dyspneic and noting an increase weight gain of approximately 10 pounds over the last 1 to 2 weeks. He has denied ongoing chest discomfort suspicious for angina pectoris. He has had no report of ongoing palpitations or near syncope or syncope. He was evaluated by the emergency department staff and the [facility] staff. He was found to have elevated high-sensitivity troponin I levels from [id number]. He was also noted to have an elevated BNP level. His ECG demonstrates an AV sequential pacer. His chest x-ray was re viewed. It demonstrates a dual-chamber pacemaker. It also demonstrates mild increased pulmonary vascularity compatible with mild CHF/pulmonary edema. He does remain with chronic renal insufficiency. His BUN was 80 and his creatinine was 5.34. He remains chronically anemic. His hemoglobin level was reported at 9.6. He was subsequently placed in the PCU. He has been treated with IV furosemide therapy as he still states he makes some amount of urine. He believes since his increased urinary output his breathing has improved overall. He has undergone previous noninvasive cardiovascular evaluation with an echocardiogram in 2020 and a stress test in 2016. Those results are noted below. He does have a permanent pacemaker placed which was placed by Dr. Lin. It was interrogated in February 2022. He is noted to ventricular paced approximately 99% of the time. His battery longevity at that time was 7.5 years. [facility] Medical History Anemia ARF (acute renal failure) Bradycardia Central line complication Chronic kidney disease, stage IV (severe) DM2 (diabetes mellitus, type 2) Essential hypertension High degree atrioventricular block History of complete heart block Hyperlipidemia Hypertensive urgency Kidney transplant candidate (01/31/19) Kidney transplant complication Pre-syncope Second degree heart block Type 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 Home Medications atorvastatin 40 mg tablet 40 mg PO QHS CHOLESTEROL 06/23/17 [History Last Taken 03/10/21 15:00] dulaglutide 1.5 mg/0.5 mL subcutaneous pen injector 1.5 mg SQ REYNA DIABETES 06/23/17 [History Last Taken 03/09/21] ferrous sulfate 325 mg (65 mg iron) tablet 325 mg PO DAILY supplement 10/24/18 [History Last Taken 03/10/21 09:00] aspirin 81 mg chewable tablet 81 mg PO DAILY heart health 10/02/20 [History Last Taken 03/10/21 09:00] glimepiride 4 mg tablet 4 mg PO DAILY diabetes 10/02/20 [History Last Taken 03/10/21 09:00] prednisone 5 mg tablet 5 mg PO DAILY steroid 10/02/20 [History Last Taken 03/10/21 09:00] sodium bicarbonate 650 mg tablet 650 mg PO BID supplement 10/02/20 [History Last Taken 03/10/21 15:00] sulfamethoxazole 400 mg-trimethoprim 80 mg tablet (Bactrim) 1 tab PO DAILY antibiotic 10/02/20 [History Last Taken 03/10/21 09:00] tacrolimus 0.5 mg capsule, immediate-release 2 mg PO DAILY immunosuppresive 10/02/20 [History Last Taken 03/10/21 15:00] mycophenolate mofetil 250 mg capsule (CellCept) 250 mg PO BID transplant med 03/11/21 [History Last Taken Unknown] nifedipine 60 mg tablet,extended release 24 hr (Procardia XL) 60 mg PO DAILY blood pressure 03/11/21 [History Last Taken Unknown] tacrolimus 1 mg capsule, immediate-release 1 mg PO QHS immunosuppresive 03/11/21 [History Last Taken 03/10/21] lisinopril 5 mg tablet (Zestril) 5 mg PO BID #180 tabs 03/12/21 [Rx Last Taken Unknown] lorazepam 1 mg tablet (Ativan) 1 mg PO TID PRN anxiety #10 tabs 01/27/22 [Rx Last Taken Unknown] Allergy/AdvReac Type Severity Reaction Status Date / Time No Known Allergies Allergy Verified 05/05/22 13:40 Family History Father Pneumonia Mother CVA (cerebral vascular accident) Surgical History History of permanent cardiac pacemaker placement (03/11/21) Renal transplant recipient S/P colonoscopy Status post kidney transplant Isabel teeth removed Social History household members: spouse Smoking Status: Former smoker how long ago did patient quit smoking: Quit 1993, 0.5 pk/day until quit. second hand exposure: Yes alcohol intake: current alcohol intake frequency: a few times a month substance use type: does not use ROS Constitutional Constitutional: Reports as per HPI Eyes Eyes: Reports as per HPI ENT HEENT: Reports as per HPI Cardiovascular Cardiovascular: Reports dyspnea Respiratory/Chest Respiratory/Chest: Reports dyspnea Gastrointestinal Gastrointestinal: Reports as per HPI Genitourinary Genitourinary: Reports as per HPI Musculoskeletal Musculoskeletal: Reports as per HPI Integumentary Integumentary: Reports as per HPI Neurologic Neurologic: Reports as per HPI Physical Exam Const alert, oriented x3 and no apparent distress Orientation / Consciousness: awake HEENT normocephalic, head/scalp atraumatic and hearing grossly normal bilaterally Eyes PERRL, EOMs intact bilaterally, conjunctivae normal and no scleral icterus Neck full ROM, supple and no JVD Carotids: normal carotid upstroke Resp normal respiratory effort Auscultation: diminished lung sounds bilateral lower Cardio regular rate, regular rhythm, S1 normal heart sound and S2 normal heart sound Heart Sounds: murmur systolic II/ harsh mid left sternal border and LVOT GI GI Narrative: Positive bowel sounds; soft; no tenderness to palpation Extremity General Extremity: edema bilateral lower extremity Details: mild Skin no rashes or lesions noted Psych mental status grossly normal Risk Stratification Risk Stratification Applicable: Yes Age >/= 65: Yes >/= 3 CAD Risk Factors (HTN, HLD, DM, family hx of CAD, or current smoker): Yes Aspirin Use in the Past 7 Days: Yes Severe Angina (>/= episodes in 24 hours): No EKG ST Changes >/= 0.5mm: No Positive Cardiac Marker: Yes GARRETT Risk Stratification Score: 4 GARRETT % Risk: 20% Risk Procedure Criteria Type of Procedure Procedure Type: Elective Elective Risks - COVID COVID Risk Discussion: The surgeon/proceduralist and patient have discussed in detail the risk of exposure to and/or potential harm posed by the COVID-19 virus with having a surgery/procedure at this time versus the risk of delaying the surgery/procedure. It is not possible to know either the risk of delaying the surgery or procedure or chance of getting an infection with perfect accuracy, but a joint decision was made between the patient and the surgeon/proceduralist to proceed at this time with the scheduled surgery/procedure as indicated on the consent form. Objective Data Vital Signs: Vital Signs Temp Pulse Resp BP Pulse Ox O2 Del Method 98.3 F 93 16 137/77 H 95 Room Air 05/07/22 13:18 05/07/22 13:18 05/07/22 13:18 05/07/22 13:18 05/07/22 13:18 05/07/22 13:18 Oxygen Delivery Method Room Air Weight: 229 lb 0.964 oz Body Mass Index (BMI) 24.3 Intake & Output: Intake and Output for Last 24 Hours 05/05/22 05/06/22 05/07/22 23:59 23:59 23:59 Intake Total 528.75 / 528.75 Output Total 900 / 900 450 / 450 Balance -900 / -900 78.75 / 78.75 Lab / Micro Data Result Diagrams: 05/07/22 04:19 05/07/22 04:19 Labs: Laboratory Results - last 24 hr 05/06/22 16:32: Troponin I High Sens 198 H* 05/06/22 16:32: B-Natriuretic Peptide 961.0 H 05/06/22 16:32: Phosphorus 6.6 H, Magnesium 2.1 05/06/22 18:36: Troponin I High Sens 184 H* 05/06/22 23:27: Troponin I High Sens 221 H* 05/06/22 23:52: POC Glucose 145 H 05/07/22 04:19: WBC 9.2, RBC 3.89 L, Hgb 9.6 L, Hct 31.7 L, MCV 81.5, MCH 24.7 L , MCHC 30.3 L, RDW Std Deviation 45.1 H, RDW Coeff of Yanely 15.6 H, Plt Count 213, MPV 11.2, Immature Gran % (Auto) 0.200, Neut % (Auto) 71.0 H, Lymph % (Auto) 15.0 L, Lea % (Auto) 9.6, Eos % (Auto) 3.9, Baso % (Auto) 0.3, Absolute Neuts (auto) 6.5, Absolute Lymphs (auto) 1.38, Nucleated RBC % 0 05/07/22 04:19: Sodium 142, Potassium 4.8, Chloride 105, Carbon Dioxide 26.0, Anion Gap 11, BUN 80 H, Creatinine 5.34 H, Estim Creat Clear Calc 16.48, Est GFR (MDRD) Af Amer 14 L, Est GFR (MDRD) Non-Af 11 L, BUN/Creatinine Ratio 15.0, Glucose 146 H, Calcium 6.0 L*, Total Bilirubin 0.40, AST 13 L, ALT 17, Alkaline Phosphatase 63, Total Protein 5.7 L, Albumin 2.4 L, Globulin 3.3, Albumin/Globulin Ratio 0.7 L, Triglycerides 149, Cholesterol 120, LDL Cholesterol 34, VLDL Cholesterol 30, HDL Cholesterol 56 05/07/22 06:33: POC Glucose 137 H 05/07/22 11:00: POC Glucose 189 H Cardiology Labs/Tests 05/06/22 16:32: B-Natriuretic Peptide 961.0 H 05/06/22 16:32: Phosphorus 6.6 H, Magnesium 2.1 05/07/22 04:19: WBC 9.2, RBC 3.89 L, Hgb 9.6 L, Hct 31.7 L, MCV 81.5, MCH 24.7 L , MCHC 30.3 L, Plt Count 213, MPV 11.2, Immature Gran % (Auto) 0.200, Neut % (Auto) 71.0 H, Lymph % (Auto) 15.0 L, Lea % (Auto) 9.6, Eos % (Auto) 3.9, Baso % (Auto) 0.3, Absolute Neuts (auto) 6.5, Nucleated RBC % 0 05/07/22 04:19: Sodium 142, Potassium 4.8, Chloride 105, Carbon Dioxide 26.0, Anion Gap 11, BUN 80 H, Creatinine 5.34 H, Est GFR (MDRD) Af Amer 14 L, Est GFR (MDRD) Non-Af 11 L, BUN/Creatinine Ratio 15.0, Glucose 146 H, Calcium 6.0 L*, Total Bilirubin 0.40, Triglycerides 149, Cholesterol 120, LDL Cholesterol 34, VLDL Cholesterol 30, HDL Cholesterol 56 Rhythm: AV sequential pacemaker EKG: AV sequential pacemaker ECHO: 03-11-2021 Interpretation Summary Normal LV size. Mild concentric left ventricular hypertrophy. Left ventricular systolic function is normal. The estimated ejection fraction is 70 %. Contrast injection was performed. ? Stress Test: 03-27-2017 Stress Test Report Exercise myocardial perfusion stress test. 71-year-old man with a history of chest pain and diabetes mellitus.? Medications Lipitor carvedilol amlodipine Tradjenta. Stress protocol: Resting EKG demonstrates normal sinus rhythm with a rate of 66 bpm.? Resting blood pressure is 150/78 mmHg.? The patient exercised according to the regular Errol protocol for total duration of 4 minutes.? The maximum heart rate attained was 123 bpm which was 81% of the maximum predicted heart rate the maximum workload attained was 5.8 metabolic equivalents.? The patient maintained sinus rhythm throughout the recording.? At rest there were no ST or T-wave changes noted suggest ischemia.? At peak exercise no ST or T-wave changes were noted suggest ischemia.? No arrhythmias were noted.? The test was terminated due to shortness of breath.? The resting blood pressure was 150/78 with a peak blood pressure of 200/74. Myocardial perfusion protocol. ?14.6 mCi of technetium 99m sestamibi was injected at rest.? The patient exercised for a total duration of 4 minutes and at peak exercise 44.4 mCi of technetium 99m sestamibi was injected.? Stress images were obtained.? Stress and rest images were reconstructed and compared in the short axis vertical long and horizontal long axis.? Gated images were also obtained. Perfusion SPECT analysis: Review of the stress images demonstrate normal uptake of tracer noted in all areas of the myocardium.? The resting images similarly demonstrate normal uptake of tracer noted in all areas of the myocardium.? No areas of reversibility are noted suggest ischemia no previous infarct is noted. Gated SPECT analysis: The estimated ejection fraction is 69%. Conclusion: Normal exercise myocardial perfusion stress test at a low to? moderate workload. No obvious angina noted. Low workload may affect sensitivity for detection of ischemia. PPM: 03-11-2021 Commun.it: Model number: [id number]; serial number: [id number]; dual-chamber pacemaker Radiography Diagnostic Testing: Radiology Impression Chest X-Ray 05/06/22 16:58 IMPRESSION: Question mild pulmonary interstitial edema and tiny right pleural effusion.. Clinical correlation recommended Electronically Signed: Titi Almaguer MD at 17:12 EST Reading Location ID and State: [facility] / [place] , Service support ,
--- NOTE | 2022-05-07 15:40 | CHAPLAIN ---
Type of Pastoral Visit _x__ Initial Visit ___ Follow-up Visit ___ On-call Visit ___ General Patient Visit ___ Spiritual Assessment ___ Family Conference ___ Bereavement ___ Rapid Response ___ Code Blue ___ Other (describe below) Pastoral Care Referral From _x__ Patient ___ Family ___ Nurse ___ Physician ___ Leather Coverer ___ Decal Maker ___ Other (describe below) Sacrament/Intervention _x__ Active listening ___ Anointing ___ Mosque ___ Bereavement ___ Communion ___ Ximena exploration ___ ___ Life review ___ Prayer ___ Reconciliation ___ Sacrament of Sick _x__ Supportive presence ___ Wedding ___ Other (describe below) Pastoral Comments RN in room giving meds; offer of support to patient; pt is welcoming but states that he is fine and that this is just minor; discovered that pt 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
[2022-05-07 15:56] LABS: Bedside Glucose 225 mg/dL (74-106)
[2022-05-07] MEDS: Tacrolimus Anhydrous 1 MG Capsule PO (21:12)
[2022-05-07] MEDS: Atorvastatin Calcium 40 MG Tablet PO (21:14)
[2022-05-07 21:55] LABS: Bedside Glucose 180 mg/dL (74-106)
[2022-05-08] VITALS (8 sets, daily range): BP systolic 117–152; BP diastolic 59–80; PULSE 84–92; RESP 16–18; TEMP 36.7–36.9; O2SAT 93–98
[2022-05-08] MEDS: Furosemide 100 MG/10 ML Vial 60 MG IV (05:37)
[2022-05-08] MEDS: 0.9% Saline Lock 10 ML Syringe IV (05:38)
[2022-05-08 06:12] LABS: Absolute Lymphocyte Count 1.63 X10^3/uL (0.83-4.51); Absolute Neutrophil Count 5.6 X10^3/uL (2.0-7.7); Basophil# 0.04 X10^3/uL; Basophil% 0.5 % (0-1); Eosinophil# 0.29 X10^3/uL; Eosinophils% 3.4 % (0-5); Lymphocyte # 1.63 X10^3/ul (0.83-4.51); Lymphocyte % 19.3 % (19-41); Mean Corp Hgb Conc 30.3 g/dL (32-36); Mean Corpuscular Hgb 24.6 pg (27.0-32.0); Mean Corpuscular Volume 81.3 fL (80-94); Mean Platelet Vol. 11.1 fl (6.2-12.0); Monocyte% 10.7 % (0-10); NRBC Flagged by Analyzer 0 % (0-5); Neutrophil # 5.56 X10^3/uL (2.7-7.7); Neutrophil % 65.9 % (47-70); Platelet Count 218 K/mm3 (150-450); RBC Distribution Width CV 15.4 % (11.6-14.6); RBC Distribution Width SD 44.7 fl (35.1-43.9); Red Blood Count 4.06 M/mm3 (4.6-6.2); White Blood Count 8.4 K/mm3 (4.4-11.0)
[2022-05-08 06:59] LABS: Anion Gap 13 (5-15); BUN 79 mg/dL (7-18); BUN/Creat Ratio 12.9 RATIO (10-20); Calcium,Total 6.2 mg/dL (8.5-10.1); Chloride 106 mmol/L (98-107); Creatinine, Serum 6.11 mg/dL (0.70-1.30); EST Glomerular Filtration Rate 10 mL/min (>60); Est Glom Filt Rate - Afr Amer 12 mL/min (>60); Estimated Creatinine Clearance 10.26 ml/min; Glucose 140 mg/dL (74-106); Phosphorus 7.2 mg/dL (2.5-4.9); Potassium 5.3 mmol/L (3.5-5.1); Sodium Level 144 mmol/L (136-145)
[2022-05-08 07:11] LABS: Bedside Glucose 137 mg/dL (74-106)
[2022-05-08] MEDS: Smz/Tmp Ds Tablet 0.5 TABLET PO (08:59)
[2022-05-08] MEDS: Lisinopril 5 MG Tablet PO (08:59)
[2022-05-08] MEDS: Sodium Bicarbonate 650 MG Tablet PO ×2 (08:59→22:23)
[2022-05-08] MEDS: NIFEdipine 60 MG Tablet PO (08:59)
[2022-05-08] MEDS: Mycophenolate Mofetil 250 MG Capsule PO ×2 (09:00→22:23)
[2022-05-08] MEDS: Tacrolimus Anhydrous 1 MG Capsule 2 MG PO (09:00)
[2022-05-08] MEDS: Aspirin 81 MG TAB.CHEW PO (09:00)
[2022-05-08] MEDS: Heparin Injection (Vial) 5,000 UNIT/ML VIAL 5000 UNIT SC ×2 (09:00→22:23)
[2022-05-08] MEDS: predniSONE 5 MG Tablet PO (09:00)
[2022-05-08] MEDS: Ferrous Sulfate 325 MG Tablet PO (09:00)
--- NOTE | 2022-05-08 10:57 | PN.RENAL_ITS ---
Documented by User: HUBER Wilder 05/08/22 11:16 Subjective Subjective Patient is resting in bed. Denies any nausea or vomiting. Reports appetite is good. Objective Data Objective Data Vital Signs: Vital Signs Temp Pulse Resp BP Pulse Ox O2 Del Method 98.5 F 92 18 152/80 H 93 Room Air 05/08/22 08:53 05/08/22 08:53 05/08/22 08:53 05/08/22 08:53 05/08/22 08:53 05/08/22 08:53 Oxygen Delivery Method Room Air Weight: 108.6 kg Body Mass Index (BMI) 24.3 Intake & Output: Intake and Output for Last 24 Hours 05/06/22 05/07/22 05/08/22 23:59 23:59 23:59 Intake Total 1008.75 / 1008.75 Output Total 900 / 900 750 / 750 Balance -900 / -900 258.75 / 258.75 Lab / Micro Data Result Diagrams: 05/08/22 05:16 05/08/22 05:16 Labs: Laboratory Results - last 24 hr 05/07/22 11:00: POC Glucose 189 H 05/07/22 15:35: POC Glucose 225 H 05/07/22 21:15: POC Glucose 180 H 05/08/22 05:16: WBC 8.4, RBC 4.06 L, Hgb 10.0 L, Hct 33.0 L, MCV 81.3, MCH 24.6 L, MCHC 30.3 L, RDW Std Deviation 44.7 H, RDW Coeff of Yanely 15.4 H, Plt Count 218, MPV 11.1, Immature Gran % (Auto) 0.200, Neut % (Auto) 65.9, Lymph % (Auto) 19.3, Gibson % (Auto) 10.7 H, Eos % (Auto) 3.4, Baso % (Auto) 0.5, Absolute Neuts (auto) 5.6, Absolute Lymphs (auto) 1.63, Nucleated RBC % 0 05/08/22 05:16: Sodium 144, Potassium 5.3 H, Chloride 106, Carbon Dioxide 25.0, Anion Gap 13, BUN 79 H, Creatinine 6.11 H, Estim Creat Clear Calc 10.26, Est GFR (MDRD) Af Amer 12 L, Est GFR (MDRD) Non-Af 10 L, BUN/Creatinine Ratio 12.9, Glucose 140 H, Calcium 6.2 L*, Phosphorus 7.2 H, Magnesium 2.0 05/08/22 06:48: POC Glucose 137 H Radiography Diagnostic Testing: Radiology Impression Echocardiogram 05/07/22 05:55 Interpretation Summary Left ventricular systolic function is normal. The estimated ejection fraction is 65 %. Paced septal motion. Apical wall motion abnormality may reflect pacemaker activation. Mid cavitary false tendon noted. The left atrium is mildly enlarged. Mild (1+) mitral valve insufficiency. Trivial tricuspid valve insufficiency. Mild focal aortic valve calcification. Mild aortic stenosis. Calcified aortic root. Epicardial fat. Right ventricular systolic pressure estimated to be 38 mmHg. Stage 2 diastolic dysfunction. ICD or pacer leads identified within the right atrium ICD or pacer leads identified within the right ventricle. 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 There was a question if there is a familial variant of FSGS since his biologic sister was diagnosed with FSGS about the same time. Somewhat unusual for this later onset FSGS. We might set him up with genetic testing for prognostication of family members in the future. He had a preemptive kidney transplant, never did dialysis. He is familiar with in center dialysis, peritoneal dialysis, home hemodialysis. He is interested in home hemodialysis. AV fistula placement is already in progress. Baseline creatinine had been around mid 4 range. On 04/22/2022 creatinine 5.06 mg/dL. Discussed with patient again today that he may need dialysis before AV fistula placement and/or maturity and should that happen he would need tunneled HD catheter placed for dialysis. -On admission creatinine 5.29 mg/dL, creatinine is up to 6.1 today. Unfortunately he is getting closer to dialysis. Borderline uremic symptoms however no acute indication for MEDICAL ASSISTING INSTRUCTOR today. Patient is nonoliguric. Volume status improved, breathing improved, will reduce furosemide to 60 mg IV twice daily. Potassium is 5.3 today, will stop lisinopril altogether for now. May need Kayexalate tomorrow. Labs ordered for the morning. Continue on renal diet. - Troponins are elevated, per cardiology compatible with type II event from volume overload. To undergo stress test. - d/w Dr. Hernandez Documented by User: Dr. 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 There was a question if there is a familial variant of FSGS since his biologic sister was diagnosed with FSGS about the same time. Somewhat unusual for this later onset FSGS. We might set him up with genetic testing for prognostication of family members in the future. He had a preemptive kidney transplant, never did dialysis. He is familiar with in center dialysis, peritoneal dialysis, home hemodialysis. He is interested in home hemodialysis. AV fistula placement is already in progress. Baseline creatinine had been around mid 4 range. On 04/22/2022 creatinine 5.06 mg/dL. Discussed with patient again today that he may need dialysis before AV fistula placement and/or maturity and should that happen he would need tunneled HD catheter placed for dialysis. -On admission creatinine 5.29 mg/dL, creatinine is up to 6.1 today. Unfortunately he is getting closer to dialysis. Borderline uremic symptoms however no acute indication for MEDICAL ASSISTING INSTRUCTOR today. Patient is nonoliguric. Volume status improved, breathing improved, will reduce furosemide to 60 mg IV twice daily. Potassium is 5.3 today, will stop lisinopril altogether for now. May need Kayexalate tomorrow. Labs ordered for the morning. Continue on renal diet. - Troponins are elevated, per cardiology compatible with type II event from volume overload. To undergo stress test. - d/w Dr. Hernandez Addendum breathing is better and back to baseline. no edema. stress test today. spoke to this am. he is still interested in home HD. not sure if he can stay off dialysis until AVF is ready. explained he might need tunneled line in between. had bad experience with lines before due to sepsis etc. cut back lasix. will change torsemide to 80 mg daily at home.
[2022-05-08] MEDS: Insulin Lispro 100 UNIT/ML INSULN.PEN SC ×2 (11:17→16:27)
[2022-05-08 11:41] LABS: Bedside Glucose 199 mg/dL (74-106)
[2022-05-08 16:50] LABS: Bedside Glucose 283 mg/dL (74-106)
--- NOTE | 2022-05-08 18:34 | PN.CARD_ITS ---
Subjective Subjective Patient seen and evaluated. Appears to be doing much better. Objective Data Vital Signs: Vital Signs Temp Pulse Resp BP Pulse Ox O2 Del Method 98.1 F 84 18 117/59 L 95 Room Air 05/08/22 16:25 05/08/22 16:25 05/08/22 16:25 05/08/22 16:25 05/08/22 16:30 05/08/22 16:30 Oxygen Delivery Method Room Air Weight: 239 lb 6.752 oz Body Mass Index (BMI) 24.3 Intake & Output: Intake and Output for Last 24 Hours 05/06/22 05/07/22 05/08/22 23:59 23:59 23:59 Intake Total 1008.75 / 1008.75 240 / 240 Output Total 900 / 900 750 / 750 225 / 225 Balance -900 / -900 258.75 / 258.75 Lab / Micro Data Result Diagrams: 05/08/22 05:16 05/08/22 05:16 Labs: Laboratory Results - last 24 hr 05/07/22 21:15: POC Glucose 180 H 05/08/22 05:16: WBC 8.4, RBC 4.06 L, Hgb 10.0 L, Hct 33.0 L, MCV 81.3, MCH 24.6 L, MCHC 30.3 L, RDW Std Deviation 44.7 H, RDW Coeff of [place] 15.4 H, Plt Count 218, MPV 11.1, Immature Gran % (Auto) 0.200, Neut % (Auto) 65.9, Lymph % (Auto) 19.3, [place] % (Auto) 10.7 H, Eos % (Auto) 3.4, Baso % (Auto) 0.5, Absolute Neuts (auto) 5.6, Absolute Lymphs (auto) 1.63, Nucleated RBC % 0 05/08/22 05:16: Sodium 144, Potassium 5.3 H, Chloride 106, Carbon Dioxide 25.0, Anion Gap 13, BUN 79 H, Creatinine 6.11 H, Estim Creat Clear Calc 10.26, Est GFR (MDRD) Af Amer 12 L, Est GFR (MDRD) Non-Af 10 L, BUN/Creatinine Ratio 12.9, Glucose 140 H, Calcium 6.2 L*, Phosphorus 7.2 H, Magnesium 2.0 05/08/22 06:48: POC Glucose 137 H 05/08/22 11:16: POC Glucose 199 H 05/08/22 16:24: POC Glucose 283 H Cardiology Labs/Tests 05/08/22 05:16: WBC 8.4, RBC 4.06 L, Hgb 10.0 L, Hct 33.0 L, MCV 81.3, MCH 24.6 L, MCHC 30.3 L, Plt Count 218, MPV 11.1, Immature Gran % (Auto) 0.200, Neut % (Auto) 65.9, Lymph % (Auto) 19.3, [place] % (Auto) 10.7 H, Eos % (Auto) 3.4, Baso % (Auto) 0.5, Absolute Neuts (auto) 5.6, Nucleated RBC % 0 05/08/22 05:16: Sodium 144, Potassium 5.3 H, Chloride 106, Carbon Dioxide 25.0, Anion Gap 13, BUN 79 H, Creatinine 6.11 H, Est GFR (MDRD) Af Amer 12 L, Est GFR (MDRD) Non-Af 10 L, BUN/Creatinine Ratio 12.9, Glucose 140 H, Calcium 6.2 L*, Phosphorus 7.2 H, Magnesium 2.0 Rhythm: EKG: ECHO: Stress Test: Cardiac Cath: PCI: CT Surgery: Holter monitor: EPS: PPM: CXR: Chest CT Scan: Physical Exam Const alert, oriented x3 and no apparent distress Orientation / Consciousness: awake HEENT normocephalic, head/scalp atraumatic and hearing grossly normal bilaterally Eyes PERRL, EOMs intact bilaterally, conjunctivae normal and no scleral icterus Neck full ROM, supple and no JVD Carotids: normal carotid upstroke Resp normal respiratory effort Auscultation: diminished lung sounds bilateral lower Cardio regular rate, regular rhythm, S1 normal heart sound and S2 normal heart sound Heart Sounds: murmur systolic II/ harsh mid left sternal border and LVOT GI GI Narrative: Positive bowel sounds; soft; no tenderness to palpation Extremity General Extremity: edema bilateral lower extremity Details: mild Skin no rashes or lesions noted Psych mental status grossly normal Assessment & Plan Assessment/Plan (1) Elevated troponin I level: PLAN: The patient does have elevated high-sensitivity troponin I levels. This is in the setting of chronic renal failure. He does have preserved left ventricular systolic function. I would like us to obtain a pharmacologic myocardial perfusion stress test for risk stratification. If there is no significant ischemia noted then medical therapy will be continued and he can follow-up as an outpatient. (2) Acute exacerbation of CHF (congestive heart failure): PLAN: The patient does have the appearance of acute on chronic heart failure preserved ejection fraction. Continue current medical therapy. (3) History of permanent cardiac pacemaker placement: PLAN: He does have a history of high-grade AV block/conduction system disease. He is status post permanent pacemaker placement. It appears his pacer is functioning appropriately at this time. (4) Essential hypertension: PLAN: He does have a history of hypertension. His medications can be adjusted taking into consideration his renal insufficiency. Thus he may need other agents, unless contraindicated, in addition to his dihydropyridine therapy and his low-dose ZENAIDA inhibitor therapy, which could include agents such as Apresoline/hydralazine.
--- NOTE | 2022-05-08 19:25 | PCM.PN.HOSP ---
Subjective Subjective Patient was seen and examined today, I briefly talked with nephrology about his care today, patient's creatinine was 6.11 today. I also talked with cardiology who recommended obtaining a stress test tomorrow morning. I have written for pharmacological nuclear stress test for the patient in the morning. Objective Data Objective Data Vital Signs: Vital Signs Temp Pulse Resp BP Pulse Ox O2 Del Method 98.1 F 84 18 117/59 L 95 Room Air 05/08/22 16:25 05/08/22 16:25 05/08/22 16:25 05/08/22 16:25 05/08/22 16:30 05/08/22 16:30 Oxygen Delivery Method Room Air Weight: 108.6 kg Body Mass Index (BMI) 24.3 Intake & Output: Intake and Output for Last 24 Hours 05/06/22 05/07/22 05/08/22 23:59 23:59 23:59 Intake Total 1008.75 / 1008.75 560 / 560 Output Total 900 / 900 750 / 750 575 / 575 Balance -900 / -900 258.75 / 258.75 -15 / -15 Lab / Micro Data Result Diagrams: 05/08/22 05:16 05/08/22 05:16 Labs: Laboratory Results - last 24 hr 05/07/22 21:15: POC Glucose 180 H 05/08/22 05:16: WBC 8.4, RBC 4.06 L, Hgb 10.0 L, Hct 33.0 L, MCV 81.3, MCH 24.6 L, MCHC 30.3 L, RDW Std Deviation 44.7 H, RDW Coeff of Yanely 15.4 H, Plt Count 218, MPV 11.1, Immature Gran % (Auto) 0.200, Neut % (Auto) 65.9, Lymph % (Auto) 19.3, [place] % (Auto) 10.7 H, Eos % (Auto) 3.4, Baso % (Auto) 0.5, Absolute Neuts (auto) 5.6, Absolute Lymphs (auto) 1.63, Nucleated RBC % 0 05/08/22 05:16: Sodium 144, Potassium 5.3 H, Chloride 106, Carbon Dioxide 25.0, Anion Gap 13, BUN 79 H, Creatinine 6.11 H, Estim Creat Clear Calc 10.26, Est GFR (MDRD) Af Amer 12 L, Est GFR (MDRD) Non-Af 10 L, BUN/Creatinine Ratio 12.9, Glucose 140 H, Calcium 6.2 L*, Phosphorus 7.2 H, Magnesium 2.0 05/08/22 06:48: POC Glucose 137 H 05/08/22 11:16: POC Glucose 199 H 05/08/22 16:24: POC Glucose 283 H Physical Exam Const alert, oriented x3, no apparent distress and healthy appearing General Appearance: cooperative, well kempt and well developed Orientation / Consciousness: awake, oriented to person, oriented to place and oriented to time HEENT normocephalic, head/scalp atraumatic and moist oral mucous membranes Eyes PERRL, EOMs intact bilaterally and conjunctivae normal Neck supple, no JVD, thyroid normal and no carotid bruits General: trachea midline Resp normal respiratory effort, no retractions, no use of accessory muscles and clear to auscultation bilaterally Auscultation: Negative for rales, rhonchi or wheezes Cardio regular rate, regular rhythm, S1 normal heart sound, S2 normal heart sound, no murmurs, no rub and no gallops GI normal to inspection, nondistended, normoactive bowel sounds, soft to palpation, non-tender and non-distended Extremity no clubbing, cyanosis or edema Skin no rashes or lesions noted General Skin Exam: no breakdown Neuro oriented x3, CN's II-XII intact bilaterally, moves all extremities, no focal motor deficits and no sensory deficits noted Sensorium / Orientation: awake, alert, oriented to person, oriented to place and oriented to time Speech: speech normal Psych affect normal Assessment & Plan Assessment/Plan (1) Elevated troponin I level: PLAN: Plan 1. Acute on chronic congestive heart failure with preserved ejection fraction-patient's Lasix was adjusted by nephrology today, again patient will have a stress test performed in the morning #2 troponin elevation-exact etiology unclear, again patient will have a stress test performed in the morning #3 chronic kidney disease stage IV-nephrology is participating in his care, no medication changes at this time #4 essential hypertension-continue present medications #5 hyperlipidemia-continue present medication #6 type 2 diabetes-patient is currently on Accu-Cheks with sliding scale insulin coverage Total clinical time spent by myself addressing the patient's medical issues, reviewing all of his data, and collaborating with the patient's care team: 35 minutes Charges/Coding Visit Charges Inpatient E&M: 93000 Subs Hosp L2
[2022-05-08] MEDS: Atorvastatin Calcium 40 MG Tablet PO (22:23)
[2022-05-08] MEDS: Tacrolimus Anhydrous 1 MG Capsule PO (22:24)
[2022-05-09 00:56] LABS: Bedside Glucose 135 mg/dL (74-106)
--- NOTE | 2022-05-09 03:43 | EKG12_ITS ---
Test Reason : SOB Blood Pressure : / mmHG Vent. Rate : 077 BPM Atrial Rate : 077 BPM P-R Int : 148 ms QRS Dur : 186 ms QT Int : 476 ms P-R-T Axes : 033 -55 123 degrees QTc Int : 538 ms Atrial-sensed ventricular-paced rhythm Abnormal ECG When compared with ECG of 27-JAN-2022 12:12, Vent. rate has decreased BY 7 BPM Confirmed by NEHEMIAH JOSEPH, QASIM ([id number]), make up editor ERON MOTLEY ([id number]) on 05/11/2022 9:29:43 AM Referred By: JILL Confirmed By:QASIM CERNA MD
[2022-05-09 04:25] VITALS: BP 149/80; PULSE 84; RESP 16; TEMP 36.7; O2SAT 97
[2022-05-09] MEDS: Aspirin 81 MG TAB.CHEW PO (06:21)
[2022-05-09 06:46] LABS: Bedside Glucose 119 mg/dL (74-106)
[2022-05-09 07:00] VITALS: PULSE 86
[2022-05-09 07:40] VITALS: O2SAT 96
[2022-05-09 07:47] LABS: Albumin, Serum 2.4 g/dL (3.2-5.0); BUN 95 mg/dL (7-18); Calcium,Total 6.1 mg/dL (8.5-10.1); Chloride 106 mmol/L (98-107); Creatinine, Serum 6.81 mg/dL (0.70-1.30); EST Glomerular Filtration Rate 9 mL/min (>60); Est Glom Filt Rate - Afr Amer 10 mL/min (>60); Estimated Creatinine Clearance 9.21 ml/min; Glucose 132 mg/dL (74-106); Phosphorus 7.8 mg/dL (2.5-4.9); Potassium 5.1 mmol/L (3.5-5.1); Sodium Level 141 mmol/L (136-145)
[2022-05-09 09:20] VITALS: BP 155/72; PULSE 92; RESP 18; TEMP 36.7; O2SAT 97
[2022-05-09] MEDS: Ferrous Sulfate 325 MG Tablet PO (09:24)
[2022-05-09] MEDS: Sodium Bicarbonate 650 MG Tablet PO (09:24)
[2022-05-09] MEDS: NIFEdipine 60 MG Tablet PO (09:24)
[2022-05-09] MEDS: Smz/Tmp Ds Tablet 0.5 TABLET PO (09:24)
[2022-05-09] MEDS: Heparin Injection (Vial) 5,000 UNIT/ML VIAL 5000 UNIT SC (09:24)
[2022-05-09] MEDS: Furosemide 100 MG/10 ML Vial 60 MG IV (09:25)
[2022-05-09] MEDS: 0.9% Saline Lock 10 ML Syringe IV (09:25)
[2022-05-09] MEDS: Mycophenolate Mofetil 250 MG Capsule PO (09:25)
[2022-05-09] MEDS: Tacrolimus Anhydrous 1 MG Capsule 2 MG PO (09:25)
[2022-05-09] MEDS: predniSONE 5 MG Tablet PO (09:27)
[2022-05-09 11:40] LABS: Bedside Glucose 172 mg/dL (74-106)
--- NOTE | 2022-05-09 11:48 | STRESSREP_ITS ---
Stress Test Report Pharmacologic/Lexiscan myocardial perfusion stress test. Indication; 76-year-old patient, patient with mild elevation of cardiac biomarker high sensitive troponin History of a pacemaker Patient has history of complete heart block requiring a permanent cardiac pacemaker which was done in March 11, 2021 Patient presented with symptoms shortness of breath. No symptoms of chest pain reported Stress protocol: Resting EKG demonstrates. Paced, electronic ventricular rhythm. 0.4 mg of regadenoson was infused per usual protocol followed by rapid intravenous saline flush injection continuous EKG monitoring was performed. The maximum heart rate attained was 92 bpm which was 63% of maximum predicted heart . Stress EKG showed[, no significant change from the resting EKG, with maximum heart rate of 92 bpm. Arrhythmia: No arrhythmia demonstrated Symptoms: Patient had no symptoms of chest pain Blood pressure at rest: 162/82 mmHg blood pressure at the end of stress: 162/84 mmHg Myocardial perfusion protocol. 13.6 mCi ]of Technetium 99m Sestamibi was injected at rest. [ 0.4 mg ]of Regadenoson was infused per usual protocol peak infusion[40.2 mCi ]of Technetium 99m sestamibi was injected. Stress images were obtained stress and rest images were reconstructed and compared in the short axis vertical and horizontal long axis. Gated images were also obtained Perfusion SPECT analysis: Review of the images demonstrated no evidence of reversible myocardial ischemia. No evidence of previous myocardial infarction. Gated SPECT analysis: The gated ejection fraction is 39% With global LV hypokinesia Consistent with moderate LV systolic dysfunction Conclusion: Lexiscan sestamibi myocardial fusion study showed evidence of global LV hypokinesia with reduced ejection fraction consistent with moderate LV systolic dysfunction. There is no prior study to compare Ehsan Burk MD,FACC,[facility] [place], With CKD stage V
--- NOTE | 2022-05-09 12:55 | DCINST_ITS ---
Discharge Instructions Diet Discharge Diet: 1800 Calorie Control Diet Activity Discharge Activity: Return to Normal Activity Weight Bearing Status: Full weight bearing Follow Up Care Test Results: Test results from this visit will be discussed in further detail at your follow- up appointment, if applicable. Discharge Plan Admission Admit Date/Time: 05/06/22 19:43 Primary Reason for Your Visit: Congestive heart failure Attending Provider: Yash Hernandez Primary Care Provider: Sy Sharma Chi Consulting Providers: Boni De Luna ; Anamaria Duenas ; Prabhjot Mancera ; Anastasiya Mix Instructions Additional Instructions / Restrictions: Monitor blood sugar closely for low blood sugar due to your use of glimepiride Discharge Orders/Prescriptions Prescriptions: New metolazone 5 mg tablet 5 mg PO DAILY Qty: 30 0RF Rx Instructions: Take 1 daily for weight gain of over 3 pounds per day torsemide 40 mg tablet 40 mg PO DAILY Qty: 30 0RF Continued aspirin 81 mg tablet,chewable 81 mg PO DAILY glimepiride 4 mg tablet 4 mg PO DAILY prednisone 5 mg tablet 5 mg PO DAILY sodium bicarbonate 650 mg tablet 650 mg PO BID sulfamethoxazole-trimethoprim [Bactrim] 400-80 mg tablet 1 tab PO DAILY tacrolimus 0.5 mg capsule 2 mg PO DAILY atorvastatin 40 MG tablet 40 mg PO QHS dulaglutide 1.5 MG/0.5 ML pen injector 1.5 mg SQ REYNA Rx Instructions: takes on Wednesday ferrous sulfate 325 MG tablet 325 mg PO DAILY mycophenolate mofetil [CellCept] 250 mg Capsule 250 mg PO BID nifedipine [Procardia XL] 60 mg Tablet Extended Release 24hr 60 mg PO DAILY tacrolimus 1 mg Capsule 1 mg PO QHS lisinopril [Zestril] 5 mg tablet 5 mg PO BID Qty: 180 0RF lorazepam [Ativan] 1 mg tablet 1 mg PO TID PRN (Reason: anxiety) Qty: 10 0RF Referrals / Follow Up: Prabhjot Mancera MD [Med Staff - Consulting] - See Referral Note (His office will call you to schedule an appointment for this coming week, if you have not heard from his office by Wednesday please call to schedule) Sy Sharma Chi, MD [Primary Care Provider] - Within 2 Weeks Disposition Disposition (needs filled in before D/C Order can be placed): Home, Self Care
--- NOTE | 2022-05-09 13:16 | DS.PCM_ITS ---
Providers Date of Admission: 05/06/22 Date of Discharge: 05/09/22 Primary Care Physician: Dr. Sy Sharma MD Consultations 05/06/22 21:43 Consult: Cardiology Routine Consulting Provider: Boni De Luna Reason for Consult: CHF exacerbation EMERGENT Consult: No Notified: Yes Date Notified: 05/06/22 Time Notified: 20:57 Method of Notification: Text Consult: Nephrology Routine Consulting Provider: Prabhjot Mancera Reason for Consult: CKD stage IV, admit w/ CHF exac, needs to establish EMERGENT Consult: No Notified: Yes Date Notified: 05/07/22 Time Notified: 08:05 Method of Notification: Answering Service Comments:: Message left with answering service Reason For Visit: ACUTE CHF EXACERBATION Diagnosis Discharge Diagnosis (1) Elevated troponin I level: Status: Acute Code(s): R77.8 - Other specified abnormalities of plasma proteins Plan 1. Acute on chronic congestive heart failure with preserved ejection fraction- patient's Lasix was adjusted by nephrology today, again patient will have a stress test performed in the morning #2 troponin elevation-exact etiology unclear, again patient will have a stress test performed in the morning #3 chronic kidney disease stage IV-nephrology is participating in his care, no medication changes at this time #4 essential hypertension-continue present medications #5 hyperlipidemia-continue present medication #6 type 2 diabetes-patient is currently on Accu-Cheks with sliding scale insulin coverage #7 mild pulmonary hypertension Total clinical time spent by myself addressing the patient's medical issues, reviewing all of his data, and collaborating with the patient's care team: 35 minutes Medications at Discharge Home Medications atorvastatin 40 mg tablet 40 mg PO QHS CHOLESTEROL 06/23/17 dulaglutide 1.5 mg/0.5 mL subcutaneous pen injector 1.5 mg SQ REYNA DIABETES 06/23/17 ferrous sulfate 325 mg (65 mg iron) tablet 325 mg PO DAILY supplement 10/24/18 aspirin 81 mg chewable tablet 81 mg PO DAILY heart health 10/02/20 glimepiride 4 mg tablet 4 mg PO DAILY diabetes 10/02/20 prednisone 5 mg tablet 5 mg PO DAILY steroid 10/02/20 sodium bicarbonate 650 mg tablet 650 mg PO BID supplement 10/02/20 tacrolimus 0.5 mg capsule, immediate-release 2 mg PO DAILY immunosuppresive 10/02/20 mycophenolate mofetil 250 mg capsule (CellCept) 250 mg PO BID transplant med 03/11/21 nifedipine 60 mg tablet,extended release 24 hr (Procardia XL) 60 mg PO DAILY blood pressure 03/11/21 tacrolimus 1 mg capsule, immediate-release 1 mg PO QHS immunosuppresive 03/11/21 lisinopril 5 mg tablet (Zestril) 5 mg PO BID #180 tabs 03/12/21 lorazepam 1 mg tablet (Ativan) 1 mg PO TID PRN anxiety #10 tabs 01/27/22 metolazone 5 mg tablet 5 mg PO DAILY #30 tabs 05/09/22 torsemide 40 mg tablet 40 mg PO DAILY #30 tabs 05/09/22 Hospital Course Operations None Procedures 2-D Echocardiogram and Nuclear stress test Summary of Care Provided Minutes Spent on Discharge: 32 Hospital Course: 76-year-old male was seen in the emergency room at [facility] complaining of shortness of breath, he complained that the shortness of breath was usually on exertion but now it had worsened to the point where he was getting short of breath at rest. Patient also complained of increasing lower extremity swelling, he has a history of a kidney transplant and is currently declining in function. Patient is being seen chronically by nephrology but has not started dialysis as of yet. Work-up in the emergency room included a chest x-ray which showed findings consistent with mild pulmonary interstitial edema and a small right pleural effusion. EKG showed a paced rhythm at 77. Patient was given IV Lasix and admitted to PCU for congestive heart failure, echocardiogram was performed revealing a normal ejection fraction, patient was seen in consultation by nephrology and cardiology, it was recommended that the patient undergo a nuclear stress test due to an elevated troponin. Patient underwent resting nuclear stress test which did not show evidence of reversible ischemia. Patient did not require oxygen during his hospitalization. On 05/09/2022, patient was seen and examined: On examination he appeared in good health and spirits. Vital signs as documented. Skin warm and dry and without overt rashes. Neck without JVD, neck was supple, trachea midline, thyroid was normal. Lungs clear bilaterally, normal air movement was noted. Heart exam notab le for regular rhythm, normal sounds and absence of murmurs, rubs or gallops. Abdomen unremarkable and without evidence of organomegaly, masses, or abdominal aortic enlargement. Bowel sounds are present, abdomen is not distended. Extremities nonedematous, no cyanosis was noted, no clubbing was noted. Neuro: Cranial nerves II through XII are grossly intact, no focal motor deficits were noted, sensation to light touch and pinprick intact, motor exam 5/5 throughout. Psych: Patient is alert and oriented x3, he does not appear anxious or depressed, he does not appear agitated. Patient appeared stable for discharge home on 05/09/2021. Weight / BMI Weight Weight: 108.7 kg Body Mass Index (BMI) 24.3 ABG / Lab / Microbiology Data Result Diagrams: 05/08/22 05:16 05/09/22 06:55 Laboratory: Laboratory Results - last 24 hr 05/08/22 16:24: POC Glucose 283 H 05/08/22 22:20: POC Glucose 135 H 05/09/22 06:18: POC Glucose 119 H 05/09/22 06:55: Sodium 141, Potassium 5.1, Chloride 106, Carbon Dioxide 22.0, BUN 95 H, Creatinine 6.81 H, Estim Creat Clear Calc 9.21, Est GFR (MDRD) Af Amer 10 L, Est GFR (MDRD) Non-Af 9 L, BUN/Creatinine Ratio 14.0, Glucose 132 H, Calcium 6.1 L*, Phosphorus 7.8 H, Albumin 2.4 L 05/09/22 10:58: POC Glucose 172 H D/C Instructions Discharge Diet: 1800 Calorie Control Diet Weight Bearing Status: Full weight bearing Meaningful Use Info Meaningful Use Diagnoses (Choose all that apply): CHF CHF ZENAIDA/ARB ordered at discharge?: No Reason ZENAIDA/ARB not ordered?: Worsening renal function Documented LVEF (%): 65 Discharge Plan Admission Admit Date/Time: 05/06/22 19:43 Primary Reason for Your Visit: Congestive heart failure Attending Provider: Yash Hernandez Primary Care Provider: Sy Sharma Chi Consulting Providers: Boni De Luna ; Anamaria Duenas ; Prabhjot Mancera ; Anastasiya Mix Instructions Additional Instructions / Restrictions: Monitor blood sugar closely for low blood sugar due to your use of glimepiride Discharge Orders/Prescriptions Prescriptions: New metolazone 5 mg tablet 5 mg PO DAILY Qty: 30 0RF Rx Instructions: Take 1 daily for weight gain of over 3 pounds per day torsemide 40 mg tablet 40 mg PO DAILY Qty: 30 0RF Continued aspirin 81 mg tablet,chewable 81 mg PO DAILY glimepiride 4 mg tablet 4 mg PO DAILY prednisone 5 mg tablet 5 mg PO DAILY sodium bicarbonate 650 mg tablet 650 mg PO BID tacrolimus 0.5 mg capsule 2 mg PO DAILY atorvastatin 40 MG tablet 40 mg PO QHS dulaglutide 1.5 MG/0.5 ML pen injector 1.5 mg SQ REYNA Rx Instructions: takes on Wednesday ferrous sulfate 325 MG tablet 325 mg PO DAILY mycophenolate mofetil [CellCept] 250 mg Capsule 250 mg PO BID nifedipine [Procardia XL] 60 mg Tablet Extended Release 24hr 60 mg PO DAILY tacrolimus 1 mg Capsule 1 mg PO QHS lisinopril [Zestril] 5 mg tablet 5 mg PO BID Qty: 180 0RF lorazepam [Ativan] 1 mg tablet 1 mg PO TID PRN (Reason: anxiety) Qty: 10 0RF Referrals / Follow Up: Prabhjot Mancera MD [Med Staff - Consulting] - See Referral Note (His office will call you to schedule an appointment for this coming week, if you have not heard from his office by Wednesday please call to schedule) Sy Sharma Chi, MD [Primary Care Provider] - Within 2 Weeks Disposition Disposition (needs filled in before D/C Order can be placed): Home, Self Care Charges/Coding Visit Charges Inpatient E&M: 85688 Disch Hosp >30min
[2022-05-09 13:30] VITALS: BP 138/78; PULSE 85; RESP 18; TEMP 36.8; O2SAT 95
== END 2022-05-09 13:43 | disposition home or self-care (01) | DRG 291 ==
LOC: ED 19:48 → PCU 20:33
PROVIDERS: Internal Medicine; Nurse Practitioner Adult Health; Admitting Provider Family Medicine; Emergency Provider Emergency Medicine; PCP Family Medicine Geriatric Medicine; Visit Provider Internal Medicine
DX: I13.2 Hypertensive heart and chronic kidney disease with heart failure and with stage 5 chronic kidney disease, or end stage renal disease (principal); I50.33 Acute on chronic diastolic (congestive) heart failure; T86.12 Kidney transplant failure; N18.5 Chronic kidney disease, stage 5; I27.20 Pulmonary hypertension, unspecified; D63.1 Anemia in chronic kidney disease; E11.21 Type 2 diabetes mellitus with diabetic nephropathy; E11.22 Type 2 diabetes mellitus with diabetic chronic kidney disease; E11.40 Type 2 diabetes mellitus with diabetic neuropathy, unspecified; D50.9 Iron deficiency anemia, unspecified; E78.5 Hyperlipidemia, unspecified; G47.33 Obstructive sleep apnea (adult) (pediatric); I25.10 Atherosclerotic heart disease of native coronary artery without angina pectoris; F41.9 Anxiety disorder, unspecified; F32.A Depression, unspecified; E66.9 Obesity, unspecified; R77.8 Other specified abnormalities of plasma proteins; X58.XXXA Exposure to other specified factors, initial encounter; Z68.35 Body mass index [BMI] 35.0-35.9, adult; Z95.0 Presence of cardiac pacemaker; Z79.01 Long term (current) use of anticoagulants; Z79.82 Long term (current) use of aspirin; Z79.84 Long term (current) use of oral hypoglycemic drugs; Z79.899 Other long term (current) drug therapy; Z87.891 Personal history of nicotine dependence
CPT/HCPCS: 36415; 71045; 78452; 80048; 80053; 80061; 80069; 82962; 83735; 83880; 84100; 84484; 85025; 93005; 93017; 93306; 94668; 97802; 99285; A9500; J7050; Q9957; A4216; J0610; J1940; J2785

== ENCOUNTER → 2022-05-06 | Outpatient (CLI) | payer OTHER, SELFPAY ==
[2022-05-06 13:04] LABS: Absolute Lymphocyte Count 1.23 X10^3/uL (0.83-4.51); Basophil# 0.04 X10^3/uL; Basophil% 0.3 % (0-1); Eosinophil# 0.38 X10^3/uL; Eosinophils% 3.3 % (0-5); Hematocrit 34.6 % (40-54); Hemoglobin 10.6 g/dL (13.0-16.5); Lymphocyte # 1.23 X10^3/ul (0.83-4.51); Lymphocyte % 10.7 % (19-41); Mean Corp Hgb Conc 30.6 g/dL (32-36); Mean Corpuscular Hgb 24.9 pg (27.0-32.0); Mean Corpuscular Volume 81.2 fL (80-94); Mean Platelet Vol. 11.4 fl (6.2-12.0); Monocyte# 0.83 X10^3/uL; Monocyte% 7.2 % (0-10); NRBC Flagged by Analyzer 0 % (0-5); Neutrophil # 8.95 X10^3/uL (2.7-7.7); Platelet Count 254 K/mm3 (150-450); RBC Distribution Width CV 15.7 % (11.6-14.6); RBC Distribution Width SD 44.3 fl (35.1-43.9); Red Blood Count 4.26 M/mm3 (4.6-6.2); White Blood Count 11.5 K/mm3 (4.4-11.0)
[2022-05-06 13:18] LABS: Vitamin D,25 Hydroxy 29.7 ng/mL
[2022-05-06 13:39] LABS: ALB/GLOB Ratio 0.7 RATIO (0.9-2.4); AST(SGOT) 12 U/L (15-37); Alanine Aminotransfer ALT/SGPT 20 U/L (16-61); Albumin, Serum 2.6 g/dL (3.2-5.0); Alkaline Phosphatase 70 U/L (45-117); Anion Gap 15 (5-15); BUN 75 mg/dL (7-18); BUN/Creat Ratio 14.2 RATIO (10-20); Calcium,Total 6.7 mg/dL (8.5-10.1); Chloride 103 mmol/L (98-107); Creatinine, Serum 5.29 mg/dL (0.70-1.30); EST Glomerular Filtration Rate 11 mL/min (>60); Est Glom Filt Rate - Afr Amer 14 mL/min (>60); Globulin 3.8 g/dL (2.2-4.2); Glucose 196 mg/dL (74-106); Potassium 5.1 mmol/L (3.5-5.1); Protein, Total 6.4 g/dL (6.4-8.2); Sodium Level 140 mmol/L (136-145); Thyroid Stim Hormone (TSH) 3.62 uIU/mL (0.358-3.74)
== END | disposition home or self-care (01) ==
LOC: POLAB3 10:55
PROVIDERS: PCP Family Medicine Geriatric Medicine; Visit Provider Family Medicine Geriatric Medicine
DX: E55.9 Vitamin D deficiency, unspecified (principal); E11.9 Type 2 diabetes mellitus without complications; I10 Essential (primary) hypertension
CPT/HCPCS: 36415; 80053; 82306; 84443; 85025

== ENCOUNTER 2022-05-18 09:25 | Day surgery (SDC) | payer OTHER, SELFPAY ==
[2022-05-18 10:10] VITALS: BP 144/64; PULSE 73; RESP 16; TEMP 36.8; O2SAT 99; BMI 33.0
[2022-05-18] MEDS: Lactated Ringers 1,000 ML 15 ML IV (10:16)
[2022-05-18 10:21] LABS: Bedside Glucose 164 mg/dL (74-106)
[2022-05-18] MEDS: Cefazolin 2 GM in 0.9% Normal Saline 100 ML IV (11:23)
--- NOTE | 2022-05-18 11:25 | PCM.HP.BLA ---
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 Is patient in pain?: No Allergies No Known Allergies Allergy (Verified 05/05/22 13:40) Medications atorvastatin 40 mg tablet 40 mg PO QHS CHOLESTEROL 06/23/17 [History Confirmed 05/05/22] dulaglutide 1.5 mg/0.5 mL subcutaneous pen injector 1.5 mg SQ REYNA DIABETES 06/23/17 [History Confirmed 05/05/22] ferrous sulfate 325 mg (65 mg iron) tablet 325 mg PO DAILY supplement 10/24/18 [History Confirmed 05/05/22] aspirin 81 mg chewable tablet 81 mg PO DAILY heart health 10/02/20 [History Confirmed 05/05/22] glimepiride 4 mg tablet 4 mg PO DAILY diabetes 10/02/20 [History Confirmed 05/05/22] prednisone 5 mg tablet 5 mg PO DAILY steroid 10/02/20 [History Confirmed 05/05/22] sodium bicarbonate 650 mg tablet 650 mg PO BID supplement 10/02/20 [History Confirmed 05/05/22] sulfamethoxazole 400 mg-trimethoprim 80 mg tablet (Bactrim) 1 tab PO DAILY antibiotic 10/02/20 [History Confirmed 05/05/22] tacrolimus 0.5 mg capsule, immediate-release 2 mg PO DAILY immunosuppresive 10/02/20 [History Confirmed 05/05/22] mycophenolate mofetil 250 mg capsule (CellCept) 250 mg PO BID transplant med 03/11/21 [History Confirmed 05/05/22] nifedipine 60 mg tablet,extended release 24 hr (Procardia XL) 60 mg PO DAILY blood pressure 03/11/21 [History Confirmed 05/05/22] tacrolimus 1 mg capsule, immediate-release 1 mg PO QHS immunosuppresive 03/11/21 [History Confirmed 05/05/22] lisinopril 5 mg tablet (Zestril) 5 mg PO BID #180 tabs 03/12/21 [Rx Confirmed 05/05/22] lorazepam 1 mg tablet (Ativan) 1 mg PO TID PRN anxiety #10 tabs 01/27/22 [Rx Confirmed 05/05/22] PFSH Medical History? Anemia ARF (acute renal failure) Bradycardia Central line complication Chronic kidney disease, stage IV (severe) DM2 (diabetes mellitus, type 2) Essential hypertension High degree atrioventricular block History of complete heart block Hyperlipidemia Hypertensive urgency Kidney transplant candidate (01/31/19) Kidney transplant complication Pre-syncope Second degree heart block Type 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 Surgical History? History of permanent cardiac pacemaker placement (03/11/21) Renal transplant recipient S/P colonoscopy Status post kidney transplant [place] teeth removed Family History? Father PneumoniaMother CVA (cerebral vascular accident) Social History? Smoking Status:? Never smoker how long ago did patient quit smoking:? 1994, 0.5pk/day second hand exposure:? Yes alcohol intake:? current alcohol intake frequency: a few times a month substance use type:? does not use HPI HPI HPI: 76-year-old gentleman is referred for creation of arteriovenous hemodialysis fistula.? The patient has been cared for by physicians at the [facility].? On March 23, 2022 the patient had bilateral upper extremity vein mapping.? The right upper arm cephalic vein is small.? The right upper arm basilic vein distally is only 1.7 mm but in the mid and proximal portion is 3.5 and 4.4 mm respectively.? The left upper arm cephalic vein measures from distally to proximally 2.4 up to a maximum of 2.7 cm.? Left upper arm basilic vein distally is 3.9 mm and in the mid 6 mm. 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 The patient states that he had to be treated with heparin because of hemofiltration catheters that were placed in his right internal jugular which became thrombosed and infected almost causing his demise. It is also of note that approximately a year ago he had a left chest subclavian access pacemaker placed. 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 According to the patient this was not recognized prior to his transplantation. The patient is right arm dominant.? Pacemaker left chest The patient had a bladder ultrasound was noted to have a large postvoid residual ROS General General: Yes fatigue; No weight change, appetite, colon cancer, breast cancer or weakness HEENT HEENT: No difficulty swallowing, eye injury, eye surgery, swollen glands or hoarseness Endo Endocrine: Yes diabetes mellitus; No thyroid disease, thyroid cancer, Hair loss, heat intolerance or cold intolerance Musc Musculoskeletal: No back problems, arthritis, rheumatoid arthritis, gout or joint pain Cardio Cardiovascular: Yes pacemaker and high blood pressure; No murmur, heart disease, atrial fibrillation, heart attack, heart stent, palpitations, shortness of breat with exertion or chest pain Psych Psychiatric: No depression, anxiety or hearing voices Resp Respiratory: Yes shortness of breath, Yes sleep apnea, No cough, No COPD, No asthma, No emphysema and No wheezing Gastro Gastrointestinal: No abdominal pain, No nausea or vomiting, No diarrhea, No constipation, No blood in stool, No acid reflux, No hemorrhoids, No ulcers, No gallbladder problem and No black,tarry stools Nathan Hematologic: No blood thinners, No blood disorders, No bleeding, Yes anemia and No blood clots Neuro Neurologic: No weakness Exam Const General: cooperative, comfortable and no acute distress [facility] Head: normal to inspection Eyes General: appearance normal, both eyes and all related structures Chest Other: Left infraclavicular chest easily palpable pacemaker with healed incision Right chest anterior clean of intervention Resp Other: Diminished breath sounds bibasilar, clear in the apices Cardio Rate: regular rate Rhythm: regular rhythm GI Other: Overweight, nontender Skin General: no rashes or lesions noted Neuro General: patient alert and patient awake Extrem Other: Right upper extremity inspected with ultrasound demonstrating a patent and intact forearm and upper arm cephalic vein.? 3+ right radial and brachial pulse.? Hans test demonstrates normal ulnar flow. Bilateral lower extremities demonstrate hyperpigmentation and 1+ nonpitting edema Psych Appearance: grossly normal Assessment and Plan Assessment and Plan (1) Chronic kidney disease, stage IV (severe): ?Status:?Chronic (2) Kidney transplant complication: ?Status:?Acute ?Comment: January 31, 2019 Plan I recommended the patient a right forearm radial to cephalic arteriovenous hemodialysis fistula creation.? The cephalic vein on my inspection with ultrasound is of adequate diameter and compressibility and is of adequate distance beneath the skin.? It is of note unfortunate the patient has a left chest pacemaker in place.? There is therefore involves the outflow subclavian vein likely complicating fistula placement in the entire left upper extremity.? The patient has had an opportunity to ask and have questions answered.? We will schedule procedure at his discretion.? I appreciate the opportunity of assisting with his surgical care. Copy: Dr. Sy Sorto M.D., F.A.C.S The patient was hospitalized with some congestive heart failure since his previous visit. He had no IVs or intervention regarding the right extremity because it was protected. He is currently feeling well and is not having any chest pain or shortness of breath. Physical exam remained stable. There is been no interventions with the right arm. We will proceed as noted. Carlos Manuel Sorto M.D., F.A.C.S.
--- NOTE | 2022-05-18 11:26 | DCINST_ITS ---
Discharge Instructions Procedure Fistula Diet Discharge Diet: Renal Diet Activity Discharge Activity: May Not Drive (for 2-3 days or while taking narcotic pain medications.), May Shower and May Take a Tub Bath (in 5 days.) Lifting Restrictions: 5 pounds Keep extremity elevated above heart level: - (Keep arm elevated above the heart level for 3 days.) Dressing / Incision Call your doctor if your incision/area has: Continuous Slow Oozing, Sudden Increased Bleeding (apply pressure and call your doctor.), Increased Pain/ Swelling, Increased Redness and Foul Smelling Discharge Call your doctor if you observe: Fever of 101 or Higher Suture Line Care: Avoid Pulling/Pushing and Avoid Pinching/Bending Cleanse incision/area with: Keep Dressing Clean & Dry Additional Dressing/Incision Instructions:: Change or remove dressing in one day. May protect with a gauze bandaid. Follow Up Care Please Follow Up With: Carlos Manuel Sorto MD When: Office follow-up in approximately 10 days. Please call to make your appointment. [phone] Test Results: Test results from this visit will be discussed in further detail at your follow- up appointment, if applicable. Discharge Plan Admission Attending Provider: Carlos Manuel Sorto Primary Care Provider: Sy Sharma Chi Discharge Orders/Prescriptions Prescriptions: No Action aspirin 81 mg tablet,chewable 81 mg PO DAILY glimepiride 4 mg tablet 4 mg PO DAILY prednisone 5 mg tablet 5 mg PO DAILY sodium bicarbonate 650 mg tablet 650 mg PO BID tacrolimus 0.5 mg capsule 2 mg PO DAILY atorvastatin 40 MG tablet 40 mg PO QHS dulaglutide 1.5 MG/0.5 ML pen injector 1.5 mg SQ REYNA Rx Instructions: takes on Wednesday ferrous sulfate 325 MG tablet 325 mg PO DAILY mycophenolate mofetil [CellCept] 250 mg Capsule 250 mg PO BID nifedipine [Procardia XL] 60 mg Tablet Extended Release 24hr 60 mg PO DAILY tacrolimus 1 mg Capsule 1 mg PO QHS lisinopril [Zestril] 5 mg tablet 5 mg PO BID Qty: 180 0RF lorazepam [Ativan] 1 mg tablet 1 mg PO TID PRN (Reason: anxiety) Qty: 10 0RF metolazone 5 mg tablet 5 mg PO DAILY Qty: 30 0RF Rx Instructions: Take 1 daily for weight gain of over 3 pounds per day torsemide 40 mg tablet 40 mg PO DAILY Qty: 30 0RF Referrals / Follow Up: Sy Sharma Chi, MD [Primary Care Provider] - Disposition Disposition (needs filled in before D/C Order can be placed): Home, Self Care
[2022-05-18] MEDS: Lidocaine 1% (30 ml sdv) 30 ML Vial (11:41)
[2022-05-18] MEDS: Heparin Injection (Vial) 5,000 UNIT/ML VIAL 5000 UNIT (11:41)
[2022-05-18] MEDS: Bupivacaine Mpf 0.5% 30 ML VIAL (11:41)
--- NOTE | 2022-05-18 12:32 | OP.PCM_ITS ---
Report of Operation Date of Procedure: 05/18/22 Pre-Operative Diagnosis: Chronic renal failure in need of hemodialysis access Post-Operative Diagnosis: Same Surgery/Procedure Performed:: Right forearm radiocephalic arteriovenous hemodialysis fistula creation Description of Surgical Findings:: Timeout informed consent was obtained. 76-year-old gentleman was taken to the operating placed on the table initially went underwent monitored anesthesia care and then for the last portion of the operation underwent general anesthesia. Ancef 2 g were given intravenously. The right upper extremity was sterilely prepped and draped. 1% lidocaine mixed 50-50 with 0.5% Marcaine was used as a local anesthetic. A total of 30 cc was used. Ultrasound has been used preoperatively to map the course of the cephalic vein and had a portion of the distal forearm at a branch site I had ink marked it. Local was instilled. Transverse oblique incision was created sharp and blunt dissection was identified at the site of the branch point the vein was mobilized where needed hemostasis obtained with hemoclips then sharp and blunt dissection was used to identify the radial artery which was in the distal third of the forearm and tedious dissection performed to elevate a portion of this over at least 3 cm. M&M that the patient received 9000 use of heparin. The vein was ligated distally with hemoclips. I then spatulated the side branches into 1 larger orifice. Irrigated it with heparinized saline. An 11 blade was used to make an arteriotomy in the artery followed by Cyr scissors. A end-to-side venous to arterial anastomosis was created with a running 7-0 Prolene. Prior to completion of there is good antegrade flow. The anastomosis was completed immediately there was excellent flow upon release of vascular clamps. She has some very slight kinking the vein so I straighten that out by using a 7-0 Prolene just to help straighten the vein. There is excellent flow with immediately a palpable thrill. The hand appeared to be warm and viable. Skin edges approximated deep layer of interrupted 3-0 Vicryl and then a running subicular 4 Monocryl. Steri-Strips Telfa OpSite dressings applied. Sponge and instrument and needle counts were reported to the surgeon to be correct. No apparent complications. Specimen none. Drains none. Blood loss minimal. The patient was taken to the recovery room in satisfied condition without ap parent complication. Carlos Manuel Sorto M.D., F.A.C.S. Surgeon: Carlos Manuel Sorto Type of Anesthesia: General Anesthesiologist: Leighann Hoover
[2022-05-18 12:48] VITALS: BP 139/70; BP 144/64; PULSE 100; RESP 16; TEMP 36.4; O2SAT 95
--- NOTE | 2022-05-18 12:57 | EKG12_ITS ---
Test Reason : POST SURG Blood Pressure : / mmHG Vent. Rate : 093 BPM Atrial Rate : 093 BPM P-R Int : 124 ms QRS Dur : 200 ms QT Int : 462 ms P-R-T Axes : 030 -58 117 degrees QTc Int : 574 ms Atrial-sensed ventricular-paced rhythm Abnormal ECG When compared with ECG of 09-MAY-2022 04:29, Vent. rate has increased BY 7 BPM Confirmed by NEHEMIAH JOSEPH, QASIM ([id number]), magazine editor ERON MOTLEY ([id number]) on 05/21/2022 12:37:17 PM Referred By: Carlos Manuel Sorto Confirmed By:QASIM CERNA MD
[2022-05-18 13:00] VITALS: BP 139/77; BP 144/64; PULSE 94; RESP 16; O2SAT 98
[2022-05-18 13:15] VITALS: BP 144/64; BP 158/77; PULSE 90; RESP 16; TEMP 36.3; O2SAT 96
[2022-05-18 13:53] VITALS: BP 144/64; BP 152/70; PULSE 91; RESP 16; TEMP 36.3; O2SAT 93
== END 2022-05-18 14:13 | disposition home or self-care (01) ==
LOC: SDC 09:27 → AC 09:28
PROVIDERS: PCP Family Medicine Geriatric Medicine; Referring Provider Surgery; Visit Provider Surgery
PROC: (CPT 36821; principal; 2022-05-18 11:20)
DX: Z45.2 Encounter for adjustment and management of vascular access device (principal); Z99.2 Dependence on renal dialysis; E11.22 Type 2 diabetes mellitus with diabetic chronic kidney disease; N18.4 Chronic kidney disease, stage 4 (severe); I12.9 Hypertensive chronic kidney disease with stage 1 through stage 4 chronic kidney disease, or unspecified chronic kidney disease; E78.00 Pure hypercholesterolemia, unspecified; G47.33 Obstructive sleep apnea (adult) (pediatric); Z95.0 Presence of cardiac pacemaker; Z86.718 Personal history of other venous thrombosis and embolism; Z79.82 Long term (current) use of aspirin; Z79.899 Other long term (current) drug therapy; Z79.84 Long term (current) use of oral hypoglycemic drugs
CPT/HCPCS: 36821; 01844; 82962; 93005; J7030; J7120; J2405

== ENCOUNTER 2022-06-23 05:17 | Inpatient (IN) | payer OTHER, MEDICARE, SELFPAY ==
[2022-06-23] VITALS (37 sets, daily range): BP systolic 81–203; BP diastolic 55–151; PULSE 84–128; RESP 12–45; TEMP 35.8–38.7; O2SAT 79–129; BMI 35.2; BMI 35.0
--- NOTE | 2022-06-23 05:23 | RAD_ITS ---
INDICATION: dyspnea EXAMINATION/TECHNIQUE: X-RAY - XR Chest 1 View AP portable. 5:27 AM. COMPARISON: 05/06/2022. FINDINGS: LINES/DEVICES: Pacemaker device and leads unchanged. LUNGS: Interstitial and alveolar infiltrates bilaterally, greater on the left. Small right pleural effusion. No pneumothorax. MEDIASTINUM: Aorta tortuous and atherosclerotic. CARDIAC SILHOUETTE: Not enlarged. BONES AND SOFT TISSUES: No acute abnormalities. RAD/Chest 1 View (Portable) IMPRESSION: Bilateral infiltrates asymmetric pulmonary edema versus pneumonia. Electronically Signed: Jennifer Drake MD at 5:51 EDT ,
--- NOTE | 2022-06-23 05:23 | EKG12_ITS ---
Test Reason : DYSRHYTHMIA Blood Pressure : / mmHG Vent. Rate : 124 BPM Atrial Rate : 124 BPM P-R Int : 000 ms QRS Dur : 166 ms QT Int : 370 ms P-R-T Axes : -12 -54 139 degrees QTc Int : 531 ms Ventricular-paced rhythm Abnormal ECG Confirmed by JAILYN JOSEPH, ILEANA ([id number]), continuity editor ERON MOTLEY ([id number]) on 06/26/2022 6:51:05 AM Referred By: BACILIO Confirmed By:ELIZABETH GLASER MD
[2022-06-23] MEDS: Nitroglycerin SL (ED/IMG/CATH) 0.4 MG TABLET SL (05:29)
--- NOTE | 2022-06-23 05:32 | EX.ED.DYSGE1 ---
HPI History of Present Illness Chief Complaint: Shortness of Breath Narrative Narrative: Patient is a 77-year-old male with past medical history of of high degree AV block requiring pacemaker as well as hypertension type 2 diabetes and chronic kidney disease but not yet on dialysis. He has been having increased shortness of breath over the past week which peaked last night this morning. According to patient and he was having increased work of breathing and appeared in distress this morning so EMS was called. EMS states when they arrived he was awake and alert but in distress with a pulse ox in the low 80s on room air. Patient and state that he does not require supplemental oxygen at baseline. Therefore with concern that his worsening kidney function has led to fluid in the lungs causing respiratory distress he was brought in for evaluation [facility] Medical History Anemia ARF (acute renal failure) Back pain Bradycardia Cardiology follow-up encounter Central line complication Chronic kidney disease, stage IV (severe) Diabetes DM2 (diabetes mellitus, type 2) DVT (deep venous thrombosis) Essential hypertension Former smoker Gastric reflux High cholesterol High degree atrioventricular block History of complete heart block History of echocardiogram History of pacemaker History of renal disease History of steroid therapy History of stress test Hyperlipidemia Hypertensive urgency Kidney transplant candidate (01/31/19) Kidney transplant complication MRSA infection Pre-syncope Second degree heart block Type 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 Wears glasses Home Medications atorvastatin 40 mg tablet 40 mg PO QHS CHOLESTEROL 06/23/17 [History Last Taken 03/10/21 15:00] dulaglutide 1.5 mg/0.5 mL subcutaneous pen injector 1.5 mg SQ REYNA DIABETES 06/23/17 [History Last Taken 03/09/21] ferrous sulfate 325 mg (65 mg iron) tablet 325 mg PO DAILY supplement 10/24/18 [History Last Taken 03/10/21 09:00] aspirin 81 mg chewable tablet 81 mg PO DAILY heart health 10/02/20 [History Last Taken 03/10/21 09:00] glimepiride 4 mg tablet 4 mg PO DAILY diabetes 10/02/20 [History Last Taken 03/10/21 09:00] prednisone 5 mg tablet 5 mg PO DAILY steroid 10/02/20 [History Last Taken 03/10/21 09:00] sodium bicarbonate 650 mg tablet 650 mg PO BID supplement 10/02/20 [History Last Taken 03/10/21 15:00] tacrolimus 0.5 mg capsule, immediate-release 2 mg PO DAILY immunosuppresive 10/02/20 [History Last Taken 03/10/21 15:00] mycophenolate mofetil 250 mg capsule (CellCept) 250 mg PO BID transplant med 03/11/21 [History Last Taken Unknown] nifedipine 60 mg tablet,extended release 24 hr (Procardia XL) 60 mg PO DAILY blood pressure 03/11/21 [History Last Taken Unknown] tacrolimus 1 mg capsule, immediate-release 1 mg PO QHS immunosuppresive 03/11/21 [History Last Taken 03/10/21] lisinopril 5 mg tablet (Zestril) 5 mg PO BID #180 tabs 03/12/21 [Rx Last Taken Unknown] lorazepam 1 mg tablet (Ativan) 1 mg PO TID PRN anxiety #10 tabs 01/27/22 [Rx Last Taken Unknown] metolazone 5 mg tablet 5 mg PO DAILY #30 tabs 05/09/22 [Rx Last Taken Unknown] torsemide 40 mg tablet 40 mg PO DAILY #30 tabs 05/09/22 [Rx Last Taken Unknown] Allergy/AdvReac Type Severity Reaction Status Date / Time No Known Allergies Allergy Verified 06/17/22 13:39 Family History Father Pneumonia Mother CVA (cerebral vascular accident) Surgical History History of permanent cardiac pacemaker placement (03/11/21) Renal transplant recipient S/P arteriovenous (AV) fistula creation S/P colonoscopy Status post kidney transplant [place] teeth removed Social History household members: spouse Smoking Status: Former smoker how long ago did patient quit smoking: Quit 1993, 0.5 pk/day until quit. second hand exposure: Yes alcohol intake: current alcohol intake frequency: a few times a month substance use type: does not use ROS ROS ED Constitutional Constitutional ED: Denies chills or fever(s) ENT ENT ED: Denies sore throat Cardiovascular Cardiovascular: Reports orthopnea and racing heartbeat; Denies chest pain Respiratory/Chest Respiratory/Chest: Reports cough, dyspnea, dyspnea on exertion and orthopnea Gastrointestinal Gastrointestinal: Denies abdominal pain, diarrhea, nausea or vomiting Genitourinary Genitourinary ED: Denies dysuria Musculoskeletal Musculoskeletal: Denies myalgias Integumentary Denies rash Neurologic Neurologic: Denies headache(s) Psychiatric Psychiatric: Reports anxiety Hematologic/Lymphatic Hematologic/Lymphatic: Denies easy bleeding or easy bruising EXAM Physical Exam Const Vital Signs: 06/23/22 05:18 06/23/22 05:23 06/23/22 05:24 Temperature 96.5 F L 96.5 F L Temperature Source Temporal Temporal Pulse Rate 128 H 118 H Respiratory Rate 38 H 41 H Respiratory Effort Short of Breath Labored Accessory Muscle Use Respiratory Depth Shallow Respiratory Pattern Tachypnea Blood Pressure 167/90 H 167/90 H Blood Pressure Mean 115 115 Blood Pressure Source Blood Pressure Position Blood Pressure Location Pulse Ox 79 80 Oxygen Delivery Method Bi-pap Bi-pap Bi-pap Fraction of Inspired Oxygen (FIO2) 100 100 06/23/22 05:24 06/23/22 05:29 06/23/22 05:31 Temperature Temperature Source Pulse Rate 124 H 119 H Respiratory Rate 32 H Respiratory Effort Respiratory Depth Respiratory Pattern Blood Pressure 167/90 H 196/110 H Blood Pressure Mean 138 Blood Pressure Source Blood Pressure Position Blood Pressure Location Pulse Ox 90 100 Oxygen Delivery Method Bi-pap Bi-pap Fraction of Inspired Oxygen (FIO2) 100 100 06/23/22 05:22 06/23/22 05:22 06/23/22 05:45 Temperature Temperature Source Pulse Rate 118 H 124 H Respiratory Rate 44 H 44 H 45 H Respiratory Effort Short of Breath Labored Accessory Muscle Use Retracting Respiratory Depth Shallow Respiratory Pattern Tachypnea Tachypnea Blood Pressure 176/151 H Blood Pressure Mean 159 Blood Pressure Source Blood Pressure Position Blood Pressure Location Pulse Ox 91 91 129 Oxygen Delivery Method Bi-pap Bi-pap Fraction of Inspired Oxygen (FIO2) 100 100 06/23/22 06:07 06/23/22 06:19 06/23/22 06:24 Temperature Temperature Source Pulse Rate 127 H 126 H Respiratory Rate 41 H Respiratory Effort Short of Breath Labored Accessory Muscle Use Respiratory Depth Deep Respiratory Pattern Grunting Blood Pressure 203/100 H 170/90 H Blood Pressure Mean 134 116 Blood Pressure Source Monitor Blood Pressure Position Sitting Blood Pressure Location Left Arm Pulse Ox 99 Oxygen Delivery Method Bi-pap Fraction of Inspired Oxygen (FIO2) 06/23/22 07:02 06/23/22 06:33 06/23/22 06:53 Temperature 97.3 F L Temperature Source Temporal Pulse Rate 115 H 118 H Respiratory Rate 24 H 24 H Respiratory Effort Respiratory Depth Respiratory Pattern Tachypnea Blood Pressure 121/80 H Blood Pressure Mean 93 Blood Pressure Source Blood Pressure Position Blood Pressure Location Pulse Ox 98 90 Oxygen Delivery Method Mechanical Ventilator Fraction of Inspired Oxygen (FIO2) 85 100 Positive well nourished, well developed and obese Constitutional Narrative: Patient is in acute respiratory distress with tachypnea and accessory muscle use and diminished breath sounds throughout with diffuse crackles. Patient is dyspneic with speech and only able to perform 1 or 2 word sentences General Appearance ED: well developed Nutritional Appearance: obese HEENT Reports moist mucous membranes HEENT Narrative: No tongue or lip swelling no oral lesions no airway edema or compromise Eyes PERRL and EOMs intact bilaterally General Eye ED: Yes pale conjunctiva Neck supple Neck Narrative: Positive JVD noted Resp Resp Narrative: Patient is in moderate to severe respiratory distress with tachypnea and accessory muscle use and retractions. Breath sounds are diminished throughout with diffuse crackles. Cardio regular rhythm Rate: tachycardic GI normal to inspection, nondistended, normoactive bowel sounds, non-tender, non-distended and no masses GI Narrative: No voluntary guarding or rigidity. No pulsatile mass or fluid wave Auscultation: normoactive bowel sounds Palpation: soft Extremity Extremity Narrative: +1-2 pitting edema that is equal and symmetric to the bilateral lower legs negative Homans' sign bilaterally Neuro oriented x3 and CN's II-XII intact bilaterally Sensorium / Orientation: alert Psych Psych Narrative: Patient has a nervous/anxious affect Skin no rashes or lesions noted MDM MDM MDM Narrative Medical decision making narrative: Patient presented to the ER extremely hypertensive tachycardic and tachypneic with hypoxia at 79%. He has history of end-stage renal disease not on dialysis with gradually worsening symptoms as well as crackles diffusely indicate this is congestive heart failure exacerbation. However as he could have a spontaneous pneumothorax or pneumonia or being in need of a blood transfusion from acute anemia a work-up was obtained. Labs showed a white count at 15.9 which could be secondary to infection or just stress response. His hemoglobin is low at 11.2 but near based. Creatinine is elevated at 5.4 and BUN up at 99 but this is also near baseline. The chest x-ray shows bilateral infiltrates which can indicate acute pulmonary edema versus developing infection. He is afebrile and based on his history I do feel this is most likely pulmonary edema. He was started on a nitro drip secondary to this and placed on BiPAP. Once this occurred blood pressure improved and his pulse ox improved to the mid 90s. However despite being on this for 45 minutes he had persistent tachypnea with accessory muscle use and retractions and he began to fatigue. At that time decision was made to perform intubation secondary to minimal improvement from BiPAP. The patient was intubated as documented below. Based on his high white count viral swabs were obtained and he is positive for influenza A. Secondary to this he was given a dose of Tamiflu through the OG tube. At this time patient will need admitted to the ICU secondary to his respiratory failure. The case was discussed with the hospitalist and they are agreeable to admission at this time. The case was also discussed with nephrology who will round on the patient to discuss need for dialysis based on his persistent kidney disease and now respiratory failure. The patient was sedated with 20 mg of etomidate and 100 mg of succinylcholine. The glide scope was used to visualize the vocal cord. An 8.0 ET tube was passed with 1 attempt. Confirmation was by color change capnography and bilateral breath sounds. Chest x-ray confirmed ET tube was also in the correct place. Patient tolerated the procedure well without complication History & Record Review Discussion w/independent historian: EMS personnel, Patient and Family Lab Data Attestation: I reviewed the patient's lab results. Labs: Laboratory Results - last 24 hr 06/23/22 06/23/22 06/23/22 05:28 05:28 05:28 WBC 15.9 H RBC 4.44 L Hgb 11.2 L Hct 36.9 L MCV 83.1 MCH 25.2 L MCHC 30.4 L RDW Std Deviation 47.8 H RDW Coeff of Yanely 16.1 H Plt Count 274 MPV 11.0 Immature Gran % (Auto) 0.400 Neut % (Auto) 67.6 Lymph % (Auto) 18.6 L [place] % (Auto) 11.5 H Eos % (Auto) 1.7 Baso % (Auto) 0.2 Absolute Neuts (auto) 10.8 H Absolute Lymphs (auto) 2.97 Nucleated RBC % 0 Differential Comment SCANNED Diff Path Review May foll Sodium 141 Potassium 4.5 Chloride 110 H Carbon Dioxide 16.0 L Anion Gap 15 BUN 99 H Creatinine 5.36 H Estim Creat Clear Calc 11.52 Est GFR (MDRD) Af Amer 14 L Est GFR (MDRD) Non-Af 11 L BUN/Creatinine Ratio 18.5 Glucose 276 H Calcium 6.2 L* Phosphorus 5.1 H Magnesium 1.6 Total Creatine Kinase 404 H Triglycerides 170 Radiography Diagnostic Testing: Clinical Impression(s) from Imaging Studies Chest X-Ray 06/23/22 05:23 IMPRESSION: Bilateral infiltrates asymmetric pulmonary edema versus pneumonia. Electronically Signed: Jennifer Drake MD at 5:51 EDT Reading Location ID and State: [id number] , Service support , Chest X-Ray 06/23/22 06:34 IMPRESSION: 1. Satisfactory ET tube position. 2. Bilateral airspace disease is slightly increased. Electronically Signed: Jennifer Drake MD at 7:07 EDT , By1 view chest x-ray as interpreted by the emergency medicine physician lateral pulmonary infiltrates greatest on the left indicating infection versus pulmonary edema Chest x-ray status post intubation as interpreted by the emergency medicine physician shows the ET tube to be in satisfactory position with OG tube also in correct placement. There is increased bilateral infiltrates compared to the initial x-ray Management Discussion w/another healthcare provider: Hospitalist and [employer] Super[employer] Critical Care Time Critical Care Time: Yes Critical care time (excluding procedures): - (Please note critical care time of 37 minutes) Discharge Plan Triage Chief Complaint: Shortness of Breath ED Provider: Chalo Correia Dx/Rx/DC Orders Clinical Impression: Acute respiratory failure with hypoxia, CKD (chronic kidney disease) stage 5, GFR less than 15 ml/min, DM2 (diabetes mellitus, type 2), Influenza A, Acute exacerbation of CHF (congestive heart failure) Prescriptions: No Action aspirin 81 mg tablet,chewable 81 mg PO DAILY glimepiride 4 mg tablet 4 mg PO DAILY prednisone 5 mg tablet 5 mg PO DAILY sodium bicarbonate 650 mg tablet 650 mg PO BID tacrolimus 0.5 mg capsule 2 mg PO DAILY atorvastatin 40 MG tablet 40 mg PO QHS dulaglutide 1.5 MG/0.5 ML pen injector 1.5 mg SQ REYNA Rx Instructions: takes on Wednesday ferrous sulfate 325 MG tablet 325 mg PO DAILY mycophenolate mofetil [CellCept] 250 mg Capsule 250 mg PO BID nifedipine [Procardia XL] 60 mg Tablet Extended Release 24hr 60 mg PO DAILY tacrolimus 1 mg Capsule 1 mg PO QHS lisinopril [Zestril] 5 mg tablet 5 mg PO BID Qty: 180 0RF lorazepam [Ativan] 1 mg tablet 1 mg PO TID PRN (Reason: anxiety) Qty: 10 0RF metolazone 5 mg tablet 5 mg PO DAILY Qty: 30 0RF Rx Instructions: Take 1 daily for weight gain of over 3 pounds per day torsemide 40 mg tablet 40 mg PO DAILY Qty: 30 0RF Primary Care Provider: Sy Sharma Chi Referrals: Sy Sharma Chi, MD [Primary Care Provider] - Disposition Disposition: Acute Care Hospital [facility]
[2022-06-23 05:34] LABS: Absolute Lymphocyte Count 2.97 X10^3/uL (0.83-4.51); Absolute Neutrophil Count 10.8 X10^3/uL (2.0-7.7); Basophil# 0.03 X10^3/uL; Basophil% 0.2 % (0-1); Eosinophil# 0.27 X10^3/uL; Eosinophils% 1.7 % (0-5); Hematocrit 36.9 % (40-54); Hemoglobin 11.2 g/dL (13.0-16.5); Lymphocyte # 2.97 X10^3/ul (0.83-4.51); Lymphocyte % 18.6 % (19-41); Mean Corp Hgb Conc 30.4 g/dL (32-36); Mean Corpuscular Hgb 25.2 pg (27.0-32.0); Mean Corpuscular Volume 83.1 fL (80-94); Monocyte# 1.83 X10^3/uL; Monocyte% 11.5 % (0-10); NRBC Flagged by Analyzer 0 % (0-5); Neutrophil # 10.77 X10^3/uL (2.7-7.7); Neutrophil % 67.6 % (47-70); POSITIVE DIFFERENTIAL YES; Platelet Count 274 K/mm3 (150-450); RBC Distribution Width CV 16.1 % (11.6-14.6); RBC Distribution Width SD 47.8 fl (35.1-43.9); Red Blood Count 4.44 M/mm3 (4.6-6.2); White Blood Count 15.9 K/mm3 (4.4-11.0)
[2022-06-23] MEDS: LORazepam 2 MG/ML Syringe 0.5 MG IV (05:44)
[2022-06-23 05:47] LABS: Differential Indicated SCAN CRITERIA MET
[2022-06-23 05:53] LABS: Anion Gap 15 (5-15); BUN 99 mg/dL (7-18); BUN/Creat Ratio 18.5 RATIO (10-20); Calcium,Total 6.2 mg/dL (8.5-10.1); Chloride 110 mmol/L (98-107); Creatinine, Serum 5.36 mg/dL (0.70-1.30); EST Glomerular Filtration Rate 11 mL/min (>60); Est Glom Filt Rate - Afr Amer 14 mL/min (>60); Estimated Creatinine Clearance 11.52 ml/min; Glucose 276 mg/dL (74-106); Magnesium 1.6 mg/dL (1.6-2.6); Phosphorus 5.1 mg/dL (2.5-4.9); Potassium 4.5 mmol/L (3.5-5.1); Sodium Level 141 mmol/L (136-145)
[2022-06-23 05:59] LABS: Differential Comment SCANNED
[2022-06-23] MEDS: Nitroglycerin Infusion 250 ML 3 MG CONT INF (06:07)
[2022-06-23] MEDS: Etomidate 20 MG/10 ML Vial IV (06:24)
[2022-06-23] MEDS: Succinylcholine Chloride 200 MG/10 ML SYRINGE 100 MG IV (06:24)
--- NOTE | 2022-06-23 06:34 | RAD_ITS ---
INDICATION: S/p intubation EXAMINATION/TECHNIQUE: X-RAY - XR Chest 1 View AP portable. 6:44 AM. COMPARISON: 06/23/2022 at 5:27 AM.. FINDINGS: LINES/DEVICES: Tip of endotracheal tube 3.5 cm above the bi. NG tube tip in the mid stomach. LUNGS: Extensive alveolar infiltrates bilaterally, greater on the left, slightly increased. Small right pleural effusion unchanged. No pneumothorax. MEDIASTINUM: Unremarkable. CARDIAC SILHOUETTE: Not enlarged. Pacemaker leads unchanged. BONES AND SOFT TISSUES: No acute abnormalities. RAD/Chest 1 View (Portable) IMPRESSION: 1. Satisfactory ET tube position. 2. Bilateral airspace disease is slightly increased. Electronically Signed: Jennifer Drake MD at 7:07 EDT ,
[2022-06-23] MEDS: Propofol 10MG/Ml 1,000 MG/100 ML Bottle 6.3 MG CONT INF (06:38)
[2022-06-23] MEDS: Propofol 200 MG/20 ML Vial 25 MG IV BOLUS (06:38)
[2022-06-23] MEDS: Furosemide 100 MG/10 ML Vial IV (06:40)
[2022-06-23] MEDS: Furosemide 500 MG in Empty Viaflex 50 mL 1 EACH CONT INF (06:42)
--- NOTE | 2022-06-23 06:53 | CPS ---
pt sats are 85-88% increased pt PEEP at this time and placed pt on 100%. MD cornejo
[2022-06-23] MEDS: Midazolam 2 MG/2 ML Syringe 5 MG IV (07:13)
[2022-06-23 07:25] LABS: CPK Total, Creatine Kinase 404 U/L (39-308); Triglycerides 170 mg/dL
[2022-06-23 07:30] LABS: Procalcitonin 0.23 ng/mL (0.00-0.09)
--- NOTE | 2022-06-23 07:33 | NURSING ---
DR LEV BUNCH
[2022-06-23 07:45] LABS: Base Excess -12 mmol/L (-2 to +2); Bicarbonate 14.7 mmol/L (22-26); Blood Gas Specimen Type ART; FI02 100; Mode AC; O2 Delivery Device Adult Vent; PEEP 8; PO2 76 mmHG (75-100); RR 14; SITE L Radial; SO2 93 % (95-99); Total Carbon Dioxide 16 mmol/L; Vt 500; pCO2 31.8 mmHg (35-45); pH 7.27 (7.35-7.45)
[2022-06-23] MEDS: OSELTAMIVIR PHOSPHATE 6 MG/ML BOTTLE 30 MG NG (07:46)
--- NOTE | 2022-06-23 07:48 | NURSING ---
ICU LEV RESP FAILURE WITH HYPOXIA
--- NOTE | 2022-06-23 07:52 | PCM.HP.STD ---
HPI - General General Date of Admission: 06/23/22 Date of Service: 06/23/22 Chief Complaint: Acute Hypoxic Respiratory Failure HPI Narrative POLINA GANDARA, is a 77 M who presented to the emergency department [facility] early on the morning of 06/23/2022 with shortness of breath. History is obtained from his as he is currently intubated and sedated with recent paralytics. Patient has a history of end-stage renal disease with previous renal transplant 3 years ago. Kidney was donated by his daughter. Patient recently traveled to [place] approximately 2 weeks ago and per his he has had worsening shortness of breath since that time. He has a chronic cough that really did not increase until last evening. She denies him having any fever or chills. As noted above he is having increasing shortness of breath over the last 2 weeks but his work of breathing peaked early this morning and he was apparently in respiratory distress and the EMS was called. Upon EMS arrival he was awake and alert but in distress with oxygen saturation in the low 80s on room air. He does not require supplemental oxygen at baseline. His reports he has been noncompliant with his diet and fluid intake. She states that she has found multiple bottles of Gatorade and water around the house as well as Ramen noodle packages that he has made and eaten. He has a history of noncompliance both with diet and medication. He had a recent right upper extremity fistula placement done by Dr. Sorto about 5 weeks ago and did not want to initiate any dialysis until this matured as he was afraid of line infection. He had been encouraged prior to this point to start dialysis by his community manager. Vital signs on presentation demonstrated temperature 96.5, heart rate 128, blood pressure 167/90, respiratory rate was 38 and oxygen saturation was 79% on BiPAP. He was emergently intubated and oxygen saturations following intubation were 100% on 100% of FiO2. His CBC shows a leukocytosis with a white count of 15.9 having a monophasic predominance at 11.5%. He has no left shift. He has a chronic anemia which is stable and his platelets were normal. Chemistry panel showed normal potassium and elevated chloride at 110 with a serum bicarb of 16. His BUN was 99 and his serum creatinine was 5.36 (close to his current baseline), serum glucose was 276, calcium was 6.2 however when corrected was 9.8, phosphorus was 5.1, magnesium was 1.6. A CK was obtained and found to be 404. Procalcitonin was 0.23 and his free T4 was 0.81. Chest x-ray shows bilateral worsening volume overload. EKG shows a paced rhythm with a chronic bundle branch block secondary to ventricular pacing but no ST-T wave changes concerning for ischemia. The emergency department the case was discussed with his community manager and it was recommended a Lasix drip be initiated. ER also initiated nitro drip however his pressures were soft with the combination of the nitro drip and the propofol so we discontinued his nitro drip to main sedation and left him on his Lasix drip at the time of admission. He will be admitted to the ICU. [facility] Medical History Anemia ARF (acute renal failure) Back pain Bradycardia Cardiology follow-up encounter Central line complication Chronic kidney disease, stage IV (severe) Diabetes DM2 (diabetes mellitus, type 2) DVT (deep venous thrombosis) Essential hypertension Former smoker Gastric reflux High cholesterol High degree atrioventricular block History of complete heart block History of echocardiogram History of pacemaker History of renal disease History of steroid therapy History of stress test Hyperlipidemia Hypertensive urgency Kidney transplant candidate (01/31/19) Kidney transplant complication MRSA infection Pre-syncope Second degree heart block Type 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 Wears glasses Home Medications atorvastatin 40 mg tablet 40 mg PO QHS CHOLESTEROL 06/23/17 [History Last Taken 03/10/21 15:00] dulaglutide 1.5 mg/0.5 mL subcutaneous pen injector 1.5 mg SQ [facility] 06/23/17 [History Last Taken 03/09/21] ferrous sulfate 325 mg (65 mg iron) tablet 325 mg PO DAILY supplement 10/24/18 [History Last Taken 03/10/21 09:00] aspirin 81 mg chewable tablet 81 mg PO DAILY heart health 10/02/20 [History Last Taken 03/10/21 09:00] glimepiride 4 mg tablet 4 mg PO DAILY diabetes 10/02/20 [History Last Taken 03/10/21 09:00] prednisone 5 mg tablet 5 mg PO DAILY steroid 10/02/20 [History Last Taken 03/10/21 09:00] sodium bicarbonate 650 mg tablet 650 mg PO BID supplement 10/02/20 [History Last Taken 03/10/21 15:00] tacrolimus 0.5 mg capsule, immediate-release 2 mg PO DAILY immunosuppresive 10/02/20 [History Last Taken 03/10/21 15:00] mycophenolate mofetil 250 mg capsule (CellCept) 250 mg PO BID transplant med 03/11/21 [History Last Taken Unknown] nifedipine 60 mg tablet,extended release 24 hr (Procardia XL) 60 mg PO DAILY blood pressure 03/11/21 [History Last Taken Unknown] tacrolimus 1 mg capsule, immediate-release 1 mg PO QHS immunosuppresive 03/11/21 [History Last Taken 03/10/21] lisinopril 5 mg tablet (Zestril) 5 mg PO BID #180 tabs 03/12/21 [Rx Last Taken Unknown] lorazepam 1 mg tablet (Ativan) 1 mg PO TID PRN anxiety #10 tabs 01/27/22 [Rx Last Taken Unknown] metolazone 5 mg tablet 5 mg PO DAILY #30 tabs 05/09/22 [Rx Last Taken Unknown] torsemide 40 mg tablet 40 mg PO DAILY #30 tabs 05/09/22 [Rx Last Taken Unknown] Allergy/AdvReac Type Severity Reaction Status Date / Time No Known Allergies Allergy Verified 06/17/22 13:39 Family History Father Pneumonia Mother CVA (cerebral vascular accident) Surgical History History of permanent cardiac pacemaker placement (03/11/21) Renal transplant recipient S/P arteriovenous (AV) fistula creation S/P colonoscopy Status post kidney transplant [place] teeth removed Social History household members: spouse Smoking Status: Former smoker how long ago did patient quit smoking: Quit 1993, 0.5 pk/day until quit. second hand exposure: Yes alcohol intake: current alcohol intake frequency: a few times a month substance use type: does not use ROS Review of Systems ROS Unobtainable: due to endotracheal tube Vital Signs Vital Signs Vital Signs: 06/23/22 05:18 06/23/22 05:23 06/23/22 05:24 Temperature 96.5 F L 96.5 F L Temperature Source Temporal Temporal Pulse Rate 128 H 118 H Respiratory Rate 38 H 41 H Respiratory Effort Short of Breath Labored Accessory Muscle Use Respiratory Depth Shallow Respiratory Pattern Tachypnea Blood Pressure 167/90 H 167/90 H Blood Pressure Mean 115 115 Blood Pressure Source Blood Pressure Position Blood Pressure Location Pulse Ox 79 80 Oxygen Delivery Method Bi-pap Bi-pap Bi-pap Fraction of Inspired Oxygen (FIO2) 100 100 06/23/22 05:24 06/23/22 05:29 06/23/22 05:31 Temperature Temperature Source Pulse Rate 124 H 119 H Respiratory Rate 32 H Respiratory Effort Respiratory Depth Respiratory Pattern Blood Pressure 167/90 H 196/110 H Blood Pressure Mean 138 Blood Pressure Source Blood Pressure Position Blood Pressure Location Pulse Ox 90 100 Oxygen Delivery Method Bi-pap Bi-pap Fraction of Inspired Oxygen (FIO2) 100 100 06/23/22 05:22 06/23/22 05:22 06/23/22 05:45 Temperature Temperature Source Pulse Rate 118 H 124 H Respiratory Rate 44 H 44 H 45 H Respiratory Effort Short of Breath Labored Accessory Muscle Use Retracting Respiratory Depth Shallow Respiratory Pattern Tachypnea Tachypnea Blood Pressure 176/151 H Blood Pressure Mean 159 Blood Pressure Source Blood Pressure Position Blood Pressure Location Pulse Ox 91 91 129 Oxygen Delivery Method Bi-pap Bi-pap Fraction of Inspired Oxygen (FIO2) 100 100 06/23/22 06:07 06/23/22 06:19 06/23/22 06:24 Temperature Temperature Source Pulse Rate 127 H 126 H Respiratory Rate 41 H Respiratory Effort Short of Breath Labored Accessory Muscle Use Respiratory Depth Deep Respiratory Pattern Grunting Blood Pressure 203/100 H 170/90 H Blood Pressure Mean 134 116 Blood Pressure Source Monitor Blood Pressure Position Sitting Blood Pressure Location Left Arm Pulse Ox 99 Oxygen Delivery Method Bi-pap Fraction of Inspired Oxygen (FIO2) 06/23/22 07:02 06/23/22 06:33 06/23/22 06:53 Temperature 97.3 F L Temperature Source Temporal Pulse Rate 115 H 118 H Respiratory Rate 24 H 24 H Respiratory Effort Respiratory Depth Respiratory Pattern Tachypnea Blood Pressure 121/80 H Blood Pressure Mean 93 Blood Pressure Source Blood Pressure Position Blood Pressure Location Pulse Ox 98 90 Oxygen Delivery Method Mechanical Ventilator Fraction of Inspired Oxygen (FIO2) 85 100 Weight Weight: 104.9 kg Body Mass Index (BMI) 35.2 Physical Exam Const no apparent distress and well nourished Constitutional Narrative: Obese, intubated and sedated, older, male, lying in bed, at bedside, appears comfortable at this time HEENT normocephalic and head/scalp atraumatic HEENT Narrative: ET tube/OG in place Eyes conjunctivae normal Eyes Narrative: No scleral icterus Neck no lymphadenopathy, supple and No no JVD Neck Narrative: Positive JVD, trachea midline, no thyroid enlargement Resp No normal respiratory effort, no retractions, no use of accessory muscles and No clear to auscultation bilaterally Resp Narrative: Diffuse scattered crackles, patient mechanically ventilated Auscultation: Negative for rhonchi or wheezes Cardio regular rate, S1 normal heart sound, S2 normal heart sound, no rub, no gallops and no clicks Cardio Narrative: V paced rhythm, 2 out of 6 systolic murmur loudest at right upper sternal border GI normal to inspection, nondistended, normoactive bowel sounds and soft to palpation Extremity no clubbing, cyanosis or edema Extremity Narrative: 2+ pedal pulses Skin no rashes or lesions noted, no wounds, skin turgor normal, no jaundice, no petechiae and no mottling Skin Narrative: Right forearm fistula with palpable thrill and auditory bruit Neuro Neuro Narrative: Patient is intubated and sedated with recent paralytics Psych Psych Narrative: Unable to assess Results Lab / Micro Data Attestation: I reviewed the patient's lab results. Result Diagrams: 06/23/22 05:28 06/23/22 05:28 Labs: Laboratory Results - last 24 hr 06/23/22 05:28: WBC 15.9 H, RBC 4.44 L, Hgb 11.2 L, Hct 36.9 L, MCV 83.1, MCH 25.2 L, MCHC 30.4 L, RDW Std Deviation 47.8 H, RDW Coeff of Yanely 16.1 H, Plt Count 274, MPV 11.0, Immature Gran % (Auto) 0.400, Neut % (Auto) 67.6, Lymph % (Auto) 18.6 L, [place] % (Auto) 11.5 H, Eos % (Auto) 1.7, Baso % (Auto) 0.2, Absolute Neuts (auto) 10.8 H, Absolute Lymphs (auto) 2.97, Nucleated RBC % 0, Differential Comment SCANNED, Diff Path Review May foll 06/23/22 05:28: Sodium 141, Potassium 4.5, Chloride 110 H, Carbon Dioxide 16.0 L, Anion Gap 15, BUN 99 H, Creatinine 5.36 H, Estim Creat Clear Calc 11.52, Est GFR (MDRD) Af Amer 14 L, Est GFR (MDRD) Non-Af 11 L, BUN/Creatinine Ratio 18.5, Glucose 276 H, Calcium 6.2 L*, Phosphorus 5.1 H, Magnesium 1.6 06/23/22 05:28: Total Creatine Kinase 404 H, Triglycerides 170 06/23/22 05:38: Procalcitonin 0.23 H Micro: Microbiology 06/23/22 06:00 Nasal Secretion SARS-CoV-2 & FLU Antigen (Rapid) - Final Influenzae A ABG Data ABG results: ABG 06/23/22 07:39 Specimen Type ART Sample Site L Radial pH 7.27 L Bicarbonate Actual 14.7 L Total CO2 16 Base Excess -12 L O2 Saturation 93 L O2 % 100 ABG pCO2 31.8 L ABG pO2 76 Respiration Rate 14 O2 Delivery Device Adult Vent Vent Mode AC Tidal Volume 500 POC PEEP 8 Radiology Impression Chest X-Ray 06/23/22 05:23 IMPRESSION: Bilateral infiltrates asymmetric pulmonary edema versus pneumonia. Electronically Signed: Jennifer Drake MD at 5:51 EDT Reading Location ID and State: [facility] / [place] Tel , Service support , Chest X-Ray 06/23/22 06:34 IMPRESSION: 1. Satisfactory ET tube position. 2. Bilateral airspace disease is slightly increased. Electronically Signed: Jennifer Drake MD at 7:07 EDT , Assessment & Plan Assessment/Plan (1) Acute exacerbation of CHF (congestive heart failure): (2) Influenza A: (3) Acute respiratory failure with hypoxia: (4) Leukocytosis: PLAN: Plan Acute hypoxic respiratory failure secondary to decompensated HFpEF/influenza A -Per patient has been noncompliant with fluid and salt intake -Intubated in the emergency department -Lasix drip -Consult nephrology for pending dialysis -We will stop nitro drip for now as blood pressures are borderline with a combination of nitroglycerin and propofol -Continue mechanical ventilation and wean as able -As needed albuterol -Timeframe for influenza A is unclear so will not further dose Tamiflu -Doubt bacterial--> Pro-Christopher slightly elevated at 0.23 -Check MRSA PCR -Hold on antimicrobials as this appears to be related to heart failure and viral infection for now but low threshold for antibiotics given chronic immunocompromise state -Consult pulmonary/critical care medicine Acute exacerbation of HFpEF -related to volume overload with renal dysfunction -Intubated in the emergency department -Chest x-ray looks like worsening volume overload compared to previous -Lasix drip -Daily weights -Strict I's and O's -Fluid restriction once p.o. started -Sodium restriction once p.o. started -Echocardiogram done on 05/07/2022 shows an EF of 65% with mild aortic stenosis stage II diastolic dysfunction and a right ventricular systolic pressure at 38 mmHg Influenza A infection -Unclear as to how much this is contributing to his respiratory distress -Initiation of infection is unclear as well as patient has had shortness of breath for 2 weeks -No further Tamiflu dosing -Supportive care Hypocalcemia -When corrected for albumin calcium level is 9.82 -No supplementation required Hyperphosphatemia -Related to renal failure -Continue phosphate binders Secondary hyperparathyroidism related to renal disease -Management per nephrology CKD stage IV -Patient with history of renal transplant 3 years ago with transplant failure -Continue home prednisone -Continue home bicarb -Continue home tacrolimus -Hold home oral diuretics -Lasix drip -Hold home CellCept per discussion with nephrology -Nephrology consulted-discussed with Dr. Kim Hypertension/hyperlipidemia -Continue statin -Continue Procardia -Hold home lisinopril -As needed hydralazine DM-2 -Hold home glimepiride -Hold home Trulicity -May need basal insulin but will monitor for needs -Sliding scale -Accu-Cheks every 6 hours -N.p.o. for now Chronic anemia secondary to renal disease -Hemoglobin is stable and at baseline -No EPO needed at this time as hemoglobin is greater than 10 -Repeat CBC in a.m. History of complete heart block -Patient has permanent pacemaker placed on 03/11/2021 -Pacing is ventricular Anxiety -Hold home lorazepam DVT prophylaxis -Continue subcu heparin CODE STATUS -Full code Charges/Coding Visit Charges Inpatient E&M: 42627 Init Hosp L3
--- NOTE | 2022-06-23 07:57 | NURSING ---
ICU 3
[2022-06-23 08:02] LABS: AST(SGOT) 25 U/L (15-37); Alanine Aminotransfer ALT/SGPT 21 U/L (16-61); Alkaline Phosphatase 74 U/L (45-117); Globulin 3.3 g/dL (2.2-4.2); Protein, Total 6.3 g/dL (6.4-8.2); T4 Free Direct 0.81 ng/dL (0.76-1.46)
[2022-06-23] MEDS: Ferrous Sulfate 300 MG/5 ML UDC GT (09:48)
[2022-06-23] MEDS: predniSONE 5 MG Tablet GT (09:49)
[2022-06-23] MEDS: Sodium Bicarbonate 650 MG Tablet GT ×2 (09:49→21:34)
[2022-06-23] MEDS: Tacrolimus Anhydrous 1 MG Capsule 2 MG GT (09:49)
[2022-06-23] MEDS: Aspirin 81 MG TAB.CHEW GT (09:49)
--- NOTE | 2022-06-23 10:05 | CON.PCM.CC_ITS ---
Assessment & Plan Assessment/Plan (1) Acute respiratory failure with hypoxia: PLAN: Plan RECOMMENDATIONS: 1. Obtain sputum sample 2. Likely hold on Tamiflu given delayed presentation 3. Agree with Lasix drip 4. Defer to nephrology on possible hemodialysis versus bicarbonate drip 5. Wean oxygen as tolerated. Decrease PEEP once FiO2 less than 50% 6. Initiate panculture and empiric antibiotics with fever 7. Defer immunosuppression to nephrology IMPRESSIONS: 1. Acute hypoxic respiratory failure Unclear etiology at this time. Patient does test positive for influenza A and had was reportedly not felt well for over a week. This would put patient out of the window for Tamiflu therapy. Check MRSA nasal swab and initiate vancomycin if positive. Otherwise, monitor off of antibiotics. Patient was significantly hypertensive on presentation and may have an element of HFpEF also contributing. Agree with the Lasix drip. Patient has tested positive for influenza and is on immunosuppression secondary to renal transplant. Defer to nephrology on whether this should be discontinued. Recent echocardiogram does show mild aortic stenosis with diastolic dysfunction and elevated pulmonary artery pressures. 2. Acute on chronic HFpEF/CKD stage IV Complicated by patient's renal function. Patient has been placed on a Lasix drip. Nephrology has been consulted. Patient does have a fistula, but is not clear on whether this is functional at this time. Patient may need a hemodialysis line placed temporarily. Defer to nephrology. 3. Hyperphosphatemia/secondary hyperparathyroidism/diabetes mellitus type 2/anemia of chronic disease/history of complete heart block Complicates care, management, recovery and prognosis. Likely okay to initiate tube feeds. Agree with holding baseline diabetic medications and using sliding scale. Cannot exclude the need for basal insulin as patient likely has a high endogenous adrenergic surge given problem #1. TIME: 33 minutes critical care time spent addressing patient's acute hypoxic respiratory failure, CHF, CKD stage IV, review of all data and collaboration [facility] care team HPI Consult Data Date of Consult: 06/23/22 HPI Narrative Reason for Consultation: Respiratory failure HPI Narrative: POLINA GANDARA is a 77 M, with past medical history listed below, who presents to [facility] on 06/23/2022 secondary to progressive shortness of breath over the past week. Patient reportedly had woken up this morning and extremis, so called EMS. Patient was noted to be awake and alert, but had saturations in the low 80s. Patient reportedly is not on supplemental oxygen at baseline. Patient does have a history of worsening renal function, so there was concern that this could be leading to the exacerbation. In the ER, patient was afebrile, but tachycardic at 128 bpm. Patient was also tachypneic at 41 breaths/min and hypertensive at 167/90. Patient was placed on BiPAP therapy at 100% FiO2, but failed to respond and was ultimately intubated. Laboratory work-up showed a white blood cell count of 15.9, hemoglobin of 11.2 and platelets of 274. Chemistries showed a bicarbonate of 16, BUN of 99 and creatinine of 5.36. Glucose was elevated at 276 with a calcium of 6.2 and a phosphorus of 5.1. Chest x-ray showed significant bilateral infiltrates worse than previous. Patient's subsequent x-ray following intubation showed satisfactory ET tube placement, but worsening in bilateral infiltrates. Patient also subsequently found to have influenza A by antigen testing. Nephrology was consulted from the ER and was okay with intubation at [facility]. Since being in the intensive care unit, patient's oxygen requirements have slightly improved compared to previous. Patient is still requiring a PEEP of 8. Patient has been initiated on a Lasix drip, bronchodilators and continuation of his Prograf. Hospitalist reportedly has been in contact with nephrology and they plan on seeing him later today. Unable to obtain any additional history from the patient at this time. [facility] Medical History Anemia ARF (acute renal failure) Back pain Bradycardia Cardiology follow-up encounter Central line complication Chronic kidney disease, stage IV (severe) Diabetes DM2 (diabetes mellitus, type 2) DVT (deep venous thrombosis) Essential hypertension Former smoker Gastric reflux High cholesterol High degree atrioventricular block History of complete heart block History of echocardiogram History of pacemaker History of renal disease History of steroid therapy History of stress test Hyperlipidemia Hypertensive urgency Kidney transplant candidate (01/31/19) Kidney transplant complication MRSA infection Pre-syncope Second degree heart block Type 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 Wears glasses Home Medications atorvastatin 40 mg tablet 40 mg PO QHS CHOLESTEROL 06/23/17 [History Last Taken 03/10/21 15:00] dulaglutide 1.5 mg/0.5 mL subcutaneous pen injector 1.5 mg SQ REYNA DIABETES 06/23/17 [History Last Taken 03/09/21] ferrous sulfate 325 mg (65 mg iron) tablet 325 mg PO DAILY supplement 10/24/18 [History Last Taken 03/10/21 09:00] aspirin 81 mg chewable tablet 81 mg PO DAILY heart health 10/02/20 [History Last Taken 03/10/21 09:00] glimepiride 4 mg tablet 4 mg PO DAILY diabetes 10/02/20 [History Last Taken 03/10/21 09:00] prednisone 5 mg tablet 5 mg PO DAILY steroid 10/02/20 [History Last Taken 03/10/21 09:00] sodium bicarbonate 650 mg tablet 650 mg PO BID supplement 10/02/20 [History Last Taken 03/10/21 15:00] tacrolimus 0.5 mg capsule, immediate-release 2 mg PO DAILY immunosuppresive 10/02/20 [History Last Taken 03/10/21 15:00] mycophenolate mofetil 250 mg capsule (CellCept) 250 mg PO BID transplant med 03/11/21 [History Last Taken Unknown] nifedipine 60 mg tablet,extended release 24 hr (Procardia XL) 60 mg PO DAILY blood pressure 03/11/21 [History Last Taken Unknown] tacrolimus 1 mg capsule, immediate-release 1 mg PO QHS immunosuppresive 03/11/21 [History Last Taken 03/10/21] lisinopril 5 mg tablet (Zestril) 5 mg PO BID #180 tabs 03/12/21 [Rx Last Taken Unknown] lorazepam 1 mg tablet (Ativan) 1 mg PO TID PRN anxiety #10 tabs 01/27/22 [Rx Last Taken Unknown] metolazone 5 mg tablet 5 mg PO DAILY #30 tabs 05/09/22 [Rx Last Taken Unknown] torsemide 40 mg tablet 40 mg PO DAILY #30 tabs 05/09/22 [Rx Last Taken Unknown] Allergy/AdvReac Type Severity Reaction Status Date / Time No Known Allergies Allergy Verified 06/17/22 13:39 Family History Father Pneumonia Mother CVA (cerebral vascular accident) Surgical History History of permanent cardiac pacemaker placement (03/11/21) Renal transplant recipient S/P arteriovenous (AV) fistula creation S/P colonoscopy Status post kidney transplant [place] teeth removed Social History household members: spouse Smoking Status: Former smoker how long ago did patient quit smoking: Quit 1993, 0.5 pk/day until quit. second hand exposure: Yes alcohol intake: current alcohol intake frequency: a few times a month substance use type: does not use ROS Review of Systems ROS Unobtainable: due to endotracheal tube Physical Exam Const no apparent distress and well nourished Constitutional Narrative: Intubated and paralyzed General Appearance: patient mechanically ventilated HEENT normocephalic and head/scalp atraumatic Eyes conjunctivae normal and no scleral icterus Neck no lymphadenopathy, supple and No no JVD Resp no retractions, no use of accessory muscles and No clear to auscultation bilaterally Resp Narrative: Breathing with the ventilator Auscultation: rales; Negative for rhonchi or wheezes Cardio regular rate, S1 normal heart sound, S2 normal heart sound, no rub, no gallops and no clicks Cardio Narrative: V paced rhythm Heart Sounds: murmur systolic II/ soft early right sternal border GI normal to inspection, nondistended, normoactive bowel sounds and soft to palpation Extremity no clubbing, cyanosis or edema Skin no rashes or lesions noted, no wounds, skin turgor normal, no jaundice, no petechiae and no mottling Skin Narrative: Right forearm fistula with palpable thrill and auditory bruit Neuro Neuro Narrative: Patient is intubated and sedated with recent paralytics Psych Psych Narrative: Unable to assess Medical Records Data Attestation: I reviewed the patient's medical records Lab / Micro Data Attestation: I reviewed the patient's lab results. Result Diagrams: 06/23/22 05:28 06/23/22 05:28 Labs: Laboratory Results - last 24 hr 06/23/22 05:28: WBC 15.9 H, RBC 4.44 L, Hgb 11.2 L, Hct 36.9 L, MCV 83.1, MCH 25.2 L, MCHC 30.4 L, RDW Std Deviation 47.8 H, RDW Coeff of Yanely 16.1 H, Plt Count 274, MPV 11.0, Immature Gran % (Auto) 0.400, Neut % (Auto) 67.6, Lymph % (Auto) 18.6 L, [place] % (Auto) 11.5 H, Eos % (Auto) 1.7, Baso % (Auto) 0.2, Absolute Neuts (auto) 10.8 H, Absolute Lymphs (auto) 2.97, Nucleated RBC % 0, Differential Comment SCANNED, Diff Path Review August foll 06/23/22 05:28: Sodium 141, Potassium 4.5, Chloride 110 H, Carbon Dioxide 16.0 L , Anion Gap 15, BUN 99 H, Creatinine 5.36 H, Estim Creat Clear Calc 11.52, Est GFR (MDRD) Af Amer 14 L, Est GFR (MDRD) Non-Af 11 L, BUN/Creatinine Ratio 18.5, Glucose 276 H, Calcium 6.2 L*, Phosphorus 5.1 H, Magnesium 1.6 06/23/22 05:28: Total Creatine Kinase 404 H, Triglycerides 170 06/23/22 05:28: Total Bilirubin 0.40, Direct Bilirubin 0.10, AST 25, ALT 21, Alkaline Phosphatase 74, Total Protein 6.3 L, Albumin 3.0 L, Globulin 3.3, Free T4 0.81 06/23/22 05:38: Procalcitonin 0.23 H Micro: Microbiology 06/23/22 06:00 Nasal Secretion SARS-CoV-2 & FLU Antigen (Rapid) - Final Influenzae A ABG Data ABG results: ABG 06/23/22 07:39 Specimen Type ART Sample Site L Radial pH 7.27 L Bicarbonate Actual 14.7 L Total CO2 16 Base Excess -12 L O2 Saturation 93 L O2 % 100 ABG pCO2 31.8 L ABG pO2 76 Respiration Rate 14 O2 Delivery Device Adult Vent Vent Mode AC Tidal Volume 500 POC PEEP 8 Attestation: I personally reviewed and interpreted this ABG as follows: (Acute metabolic acidosis with partial respiratory compensation and increased AA grad ient) Radiology Impression Chest X-Ray 06/23/22 05:23 IMPRESSION: Bilateral infiltrates asymmetric pulmonary edema versus pneumonia. Electronically Signed: Jennifer Drake MD at 5:51 EDT , Chest X-Ray 06/23/22 06:34 IMPRESSION: 1. Satisfactory ET tube position. 2. Bilateral airspace disease is slightly increased. Electronically Signed: Jennifer Drake MD at 7:07 EDT , Charges/Coding Procedures Hospitalists Procedures: 20103 Critial Care 1st Hr
[2022-06-23] MEDS: Insulin Lispro 100 UNIT/ML INSULN.PEN SC ×2 (11:31→18:02)
[2022-06-23 11:45] LABS: Bedside Glucose 211 mg/dL (74-106)
[2022-06-23 12:08] LABS: M R Staph aureus DNA By PCR Negative (Negative); Probe Check PASS; Specimen Processing Control PASS
[2022-06-23 12:17] LABS: Pathologist Review Reviewed
--- NOTE | 2022-06-23 12:36 | CON.PCM.SX_ITS ---
Assessment & Plan Assessment/Plan (1) CKD (chronic kidney disease) stage 5, GFR less than 15 ml/min: (2) Acute respiratory failure with hypoxia: (3) Influenza A: PLAN: Plan Did discuss the need for dialysis with Dr. Mancera who would like the catheter placed and he states tomorrow is fine. Discussed the patient and his ( via phone) plan for a tunneled dialysis catheter tomorrow. Discussed procedure including but not limited to risk of bleeding, infection, malfunction of the catheter, and anesthesia. Tentative scheduled tomorrow 2 to 3 PM. Raisa Judge M.D. Pager: [phone] [facility] [address] [place] [address], [facility], [address] [place] [address] Office: [phone] HPI Consult Data Date of Consult: 06/23/22 HPI Narrative Reason for Consultation: Dialysis catheter-tunneled HPI Narrative: POLINA GANDARA, is a 77 M who admitted to the ICU due to acute respir atory failure with hypoxia, influenza A, acute exacerbation of CHF. Patient does have a history of chronic renal failure status post failed kidney transplant. Patient has not gone on dialysis however did have a fistula placed by Dr. Sorto which is currently not ready to be used for about another [address] Mancera requested abdominal dialysis catheter as patient did not want temporary dialysis catheter as he previously had issues with infection/sepsis at [facility] with a temporary dialysis catheter. [facility] Medical History Anemia ARF (acute renal failure) Back pain Bradycardia Cardiology follow-up encounter Central line complication Chronic kidney disease, stage IV (severe) Diabetes DM2 (diabetes mellitus, type 2) DVT (deep venous thrombosis) Essential hypertension Former smoker Gastric reflux High cholesterol High degree atrioventricular block History of complete heart block History of echocardiogram History of pacemaker History of renal disease History of steroid therapy History of stress test Hyperlipidemia Hypertensive urgency Kidney transplant candidate (01/31/19) Kidney transplant complication MRSA infection Pre-syncope Second degree heart block Type 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 Wears glasses Home Medications atorvastatin 40 mg tablet 40 mg PO QHS CHOLESTEROL 06/23/17 [History Last Taken 03/10/21 15:00] dulaglutide 1.5 mg/0.5 mL subcutaneous pen injector 1.5 mg SQ REYNA DIABETES 06/23/17 [History Last Taken 03/09/21] ferrous sulfate 325 mg (65 mg iron) tablet 325 mg PO DAILY supplement 10/24/18 [History Last Taken 03/10/21 09:00] aspirin 81 mg chewable tablet 81 mg PO DAILY heart health 10/02/20 [History Last Taken 03/10/21 09:00] glimepiride 4 mg tablet 4 mg PO DAILY diabetes 10/02/20 [History Last Taken 03/10/21 09:00] prednisone 5 mg tablet 5 mg PO DAILY steroid 10/02/20 [History Last Taken 03/10/21 09:00] sodium bicarbonate 650 mg tablet 650 mg PO BID supplement 10/02/20 [History Last Taken 03/10/21 15:00] tacrolimus 0.5 mg capsule, immediate-release 2 mg PO DAILY immunosuppresive 10/02/20 [History Last Taken 03/10/21 15:00] mycophenolate mofetil 250 mg capsule (CellCept) 250 mg PO BID transplant med 03/11/21 [History Last Taken Unknown] nifedipine 60 mg tablet,extended release 24 hr (Procardia XL) 60 mg PO DAILY blood pressure 03/11/21 [History Last Taken Unknown] tacrolimus 1 mg capsule, immediate-release 1 mg PO QHS immunosuppresive 03/11/21 [History Last Taken 03/10/21] lisinopril 5 mg tablet (Zestril) 5 mg PO BID #180 tabs 03/12/21 [Rx Last Taken Unknown] lorazepam 1 mg tablet (Ativan) 1 mg PO TID PRN anxiety #10 tabs 01/27/22 [Rx Last Taken Unknown] metolazone 5 mg tablet 5 mg PO DAILY #30 tabs 05/09/22 [Rx Last Taken Unknown] torsemide 40 mg tablet 40 mg PO DAILY #30 tabs 05/09/22 [Rx Last Taken Unknown] Allergy/AdvReac Type Severity Reaction Status Date / Time No Known Allergies Allergy Verified 06/17/22 13:39 Family History Father Pneumonia Mother CVA (cerebral vascular accident) Surgical History History of permanent cardiac pacemaker placement (03/11/21) Renal transplant recipient S/P arteriovenous (AV) fistula creation S/P colonoscopy Status post kidney transplant [place] teeth removed Social History household members: spouse Smoking Status: Former smoker how long ago did patient quit smoking: Quit 1993, 0.5 pk/day until quit. second hand exposure: Yes alcohol intake: current alcohol intake frequency: a few times a month substance use type: does not use ROS Review of Systems ROS Unobtainable: due to endotracheal tube Physical Exam Narrative Patient is intubated and sedated, patient does open eyes to his name. HEENT normocephalic Resp Resp Narrative: ET tube in place Cardio Rate: regular rate GI soft to palpation and non-tender Extremity General Extremity: Negative for edema Skin no rashes or lesions noted Lab / Micro Data Result Diagrams: 06/23/22 05:28 06/23/22 05:28 Labs: Laboratory Results - last 24 hr 06/23/22 05:28: WBC 15.9 H, RBC 4.44 L, Hgb 11.2 L, Hct 36.9 L, MCV 83.1, MCH 25.2 L, MCHC 30.4 L, RDW Std Deviation 47.8 H, RDW Coeff of Yanely 16.1 H, Plt Count 274, MPV 11.0, Immature Gran % (Auto) 0.400, Neut % (Auto) 67.6, Lymph % (Auto) 18.6 L, [place] % (Auto) 11.5 H, Eos % (Auto) 1.7, Baso % (Auto) 0.2, Absolute Neuts (auto) 10.8 H, Absolute Lymphs (auto) 2.97, Nucleated RBC % 0, Differential Comment SCANNED, Diff Path Review Reviewed 06/23/22 05:28: Sodium 141, Potassium 4.5, Chloride 110 H, Carbon Dioxide 16.0 L , Anion Gap 15, BUN 99 H, Creatinine 5.36 H, Estim Creat Clear Calc 11.52, Est GFR (MDRD) Af Amer 14 L, Est GFR (MDRD) Non-Af 11 L, BUN/Creatinine Ratio 18.5, Glucose 276 H, Calcium 6.2 L*, Phosphorus 5.1 H, Magnesium 1.6 06/23/22 05:28: Total Creatine Kinase 404 H, Triglycerides 170 06/23/22 05:28: Total Bilirubin 0.40, Direct Bilirubin 0.10, AST 25, ALT 21, Alkaline Phosphatase 74, Total Protein 6.3 L, Albumin 3.0 L, Globulin 3.3, Free T4 0.81 06/23/22 05:38: Procalcitonin 0.23 H 06/23/22 07:55: MRSA (PCR) Negative 06/23/22 11:27: POC Glucose 211 H Micro: Microbiology 06/23/22 06:00 Nasal Secretion SARS-CoV-2 & FLU Antigen (Rapid) - Final Influenzae A ABG Data ABG results: ABG 06/23/22 07:39 Specimen Type ART Sample Site L Radial pH 7.27 L Bicarbonate Actual 14.7 L Total CO2 16 Base Excess -12 L O2 Saturation 93 L O2 % 100 ABG pCO2 31.8 L ABG pO2 76 Respiration Rate 14 O2 Delivery Device Adult Vent Vent Mode AC Tidal Volume 500 POC PEEP 8 Radiology Impression Chest X-Ray 06/23/22 05:23 IMPRESSION: Bilateral infiltrates asymmetric pulmonary edema versus pneumonia. Electronically Signed: Jennifer Drake MD at 5:51 EDT , Chest X-Ray 06/23/22 06:34 IMPRESSION: 1. Satisfactory ET tube position. 2. Bilateral airspace disease is slightly increased. Electronically Signed: Jennifer Drake MD at 7:07 EDT , Charges/Coding Visit Charges Inpatient E&M: 14632 Init Hosp L3
[2022-06-23 13:00] LABS: International Normalized Ratio 1.1; Partial Thromboplast Time 26.2 Seconds (24.1-36.2)
--- NOTE | 2022-06-23 13:38 | CON.PCM.RE_ITS ---
Documented by User: HUBER Wilder 06/23/22 14:17 Assessment & Plan Assessment/Plan (1) CKD (chronic kidney disease) stage 5, GFR less than 15 ml/min: (2) Acute respiratory failure with hypoxia: (3) Influenza A: PLAN: Plan Patient was admitted to the hospital for acute hypoxic respiratory failure possibly from decompensated heart failure/or pneumonia intubated and admitted to ICU. We were consulted for history of CKD stage V and possible dialysis needs. In anticipation for eventual hemodialysis patient did undergo creation of right forearm AV fistula and was hoping for AV to be mature and ready for use once dialysis was indication. At this time AV fistula is not mature for hemodialysis. Patient has likely had some progression of CKD, baseline creatinine had been around mid 5-6 range. Today his creatinine is 5.36 however this may be underestimated given hypervolemia; not surprising to see fluctuating serum creatinines given history of heart failure. Currently there is no acute or emergent need for hemodialysis initiation, potassium and acid/base acceptable and patient is starting to make urine on lasix gtt. Consult has been placed to surgery team for placement of tunneled HD catheter which will be tomorrow and we will plan for dialysis afterwards. We will likely plan for dialysis again . Continue on Lasix drip as ordered as patient is starting to make urine. Patient has history of metabolic acidosis and is on oral bicarbonate. We will continue on oral bicarbonate for now and once dialysis initiated can adjust dialysate bath; likely will see improvement in bicarb levels. We will consult social services assistant for outpatient hemodialysis placement at [facility]. Will order HepB Sag for am. Hemoglobin acceptable, at goal, does not need BOLIVAR at this time. Further orders forthcoming as hospitalization evolves. Thank you for allowing us participate in the care of Mr. Burns. HPI Consult Data Date of Consult: 06/23/22 HPI Narrative HPI Narrative: POLINA BURNS, is a 77 male with past medical history significant for history of preemptive kidney transplant in 2019, CKD at that time thought to be related to diabetes and hypertension, HTN, diabetes mellitus type 2, CHF and history of chronic kidney disease stage V who presented to the emergency room with complaints of shortness of breath. Patient was intubated, admitted to ICU for acute respiratory failure possibly secondary to decompensated heart failure/or pneumonia, influenza A and leukocytosis. Information is gathered from the chart. Nephrology consulted as patient is known to our group from hospital consult as well as outpatient CKD follow-up. 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 In anticipation for eventual hemodialysis initiation patient underwent AV fistula placement per Dr. Sorto on May 18, 2022. Patient was seen by Dr. 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 Patient was hoping for AV fistula to be mature once dialysis indicated. REPLACED BY [facility] Medical History Anemia ARF (acute renal failure) Back pain Bradycardia Cardiology follow-up encounter Central line complication Chronic kidney disease, stage IV (severe) Diabetes DM2 (diabetes mellitus, type 2) DVT (deep venous thrombosis) Essential hypertension Former smoker Gastric reflux High cholesterol High degree atrioventricular block History of complete heart block History of echocardiogram History of pacemaker History of renal disease History of steroid therapy History of stress test Hyperlipidemia Hypertensive urgency Kidney transplant candidate (01/31/19) Kidney transplant complication MRSA infection Pre-syncope Second degree heart block Type 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 Wears glasses Home Medications atorvastatin 40 mg tablet 40 mg PO QHS CHOLESTEROL 06/23/17 [History Last Taken 03/10/21 15:00] dulaglutide 1.5 mg/0.5 mL subcutaneous pen injector 1.5 mg SQ REYNA DIABETES 06/23/17 [History Last Taken 03/09/21] ferrous sulfate 325 mg (65 mg iron) tablet 325 mg PO DAILY supplement 10/24/18 [History Last Taken 03/10/21 09:00] aspirin 81 mg chewable tablet 81 mg PO DAILY heart health 10/02/20 [History Last Taken 03/10/21 09:00] glimepiride 4 mg tablet 4 mg PO DAILY diabetes 10/02/20 [History Last Taken 03/10/21 09:00] prednisone 5 mg tablet 5 mg PO DAILY steroid 10/02/20 [History Last Taken 03/10/21 09:00] sodium bicarbonate 650 mg tablet 650 mg PO BID supplement 10/02/20 [History Last Taken 03/10/21 15:00] tacrolimus 0.5 mg capsule, immediate-release 2 mg PO DAILY immunosuppresive 10/02/20 [History Last Taken 03/10/21 15:00] mycophenolate mofetil 250 mg capsule (CellCept) 250 mg PO BID transplant med 03/11/21 [History Last Taken Unknown] nifedipine 60 mg tablet,extended release 24 hr (Procardia XL) 60 mg PO DAILY blood pressure 03/11/21 [History Last Taken Unknown] tacrolimus 1 mg capsule, immediate-release 1 mg PO QHS immunosuppresive 03/11/21 [History Last Taken 03/10/21] lisinopril 5 mg tablet (Zestril) 5 mg PO BID #180 tabs 03/12/21 [Rx Last Taken Unknown] lorazepam 1 mg tablet (Ativan) 1 mg PO TID PRN anxiety #10 tabs 01/27/22 [Rx Last Taken Unknown] metolazone 5 mg tablet 5 mg PO DAILY #30 tabs 05/09/22 [Rx Last Taken Unknown] torsemide 40 mg tablet 40 mg PO DAILY #30 tabs 05/09/22 [Rx Last Taken Unknown] Allergy/AdvReac Type Severity Reaction Status Date / Time No Known Allergies Allergy Verified 06/17/22 13:39 Family History Father Pneumonia Mother CVA (cerebral vascular accident) Surgical History History of permanent cardiac pacemaker placement (03/11/21) Renal transplant recipient S/P arteriovenous (AV) fistula creation S/P colonoscopy Status post kidney transplant [place] teeth removed Social History household members: spouse Smoking Status: Former smoker how long ago did patient quit smoking: Quit 1993, 0.5 pk/day until quit. second hand exposure: Yes alcohol intake: current alcohol intake frequency: a few times a month substance use type: does not use ROS ROS Narrative Unable to obtain Physical Exam Narrative Patient intubated, resting quietly, no apparent distress Lung sounds clear anteriorly, no rhonchi, diminished breath sounds posterior bases S1, S2, RRR Abdomen soft, rounded, positive bowel sounds No pitting edema noted bilateral lower legs or feet Indwelling Beasley with clear yellow urine in bag Right forearm AV fistula positive thrill and bruit Lab / Micro Data Result Diagrams: 06/23/22 05:28 06/23/22 05:28 Labs: Laboratory Results - last 24 hr 06/23/22 05:28: WBC 15.9 H, RBC 4.44 L, Hgb 11.2 L, Hct 36.9 L, MCV 83.1, MCH 25.2 L, MCHC 30.4 L, RDW Std Deviation 47.8 H, RDW Coeff of Yanely 16.1 H, Plt Count 274, MPV 11.0, Immature Gran % (Auto) 0.400, Neut % (Auto) 67.6, Lymph % (Auto) 18.6 L, [place] % (Auto) 11.5 H, Eos % (Auto) 1.7, Baso % (Auto) 0.2, Ab solute Neuts (auto) 10.8 H, Absolute Lymphs (auto) 2.97, Nucleated RBC % 0, Differential Comment SCANNED, Diff Path Review Reviewed 06/23/22 05:28: Sodium 141, Potassium 4.5, Chloride 110 H, Carbon Dioxide 16.0 L , Anion Gap 15, BUN 99 H, Creatinine 5.36 H, Estim Creat Clear Calc 11.52, Est GFR (MDRD) Af Amer 14 L, Est GFR (MDRD) Non-Af 11 L, BUN/Creatinine Ratio 18.5, Glucose 276 H, Calcium 6.2 L*, Phosphorus 5.1 H, Magnesium 1.6 06/23/22 05:28: Total Creatine Kinase 404 H, Triglycerides 170 06/23/22 05:28: Total Bilirubin 0.40, Direct Bilirubin 0.10, AST 25, ALT 21, Alkaline Phosphatase 74, Total Protein 6.3 L, Albumin 3.0 L, Globulin 3.3, Free T4 0.81 06/23/22 05:38: Procalcitonin 0.23 H 06/23/22 07:55: MRSA (PCR) Negative 06/23/22 11:27: POC Glucose 211 H 06/23/22 12:35: PT 14.0, INR 1.1, APTT 26.2 Micro: Microbiology 06/23/22 06:00 Nasal Secretion SARS-CoV-2 & FLU Antigen (Rapid) - Final Influenzae A ABG Data ABG results: ABG 06/23/22 07:39 Specimen Type ART Sample Site L Radial pH 7.27 L Bicarbonate Actual 14.7 L Total CO2 16 Base Excess -12 L O2 Saturation 93 L O2 % 100 ABG pCO2 31.8 L ABG pO2 76 Respiration Rate 14 O2 Delivery Device Adult Vent Vent Mode AC Tidal Volume 500 POC PEEP 8 Radiology Impression Chest X-Ray 06/23/22 05:23 IMPRESSION: Bilateral infiltrates asymmetric pulmonary edema versus pneumonia. Electronically Signed: Jennifre Drake MD at 5:51 EDT , Chest X-Ray 06/23/22 06:34 IMPRESSION: 1. Satisfactory ET tube position. 2. Bilateral airspace disease is slightly increased. Electronically Signed: Jennifer Drake MD at 7:07 EDT , Documented by User: Dr. Tristin Diop MD 06/23/22 16:55 Assessment & Plan Assessment/Plan (1) CKD (chronic kidney disease) stage 5, GFR less than 15 ml/min: (2) Acute respiratory failure with hypoxia: (3) Influenza A: PLAN: Plan Patient was admitted to the hospital for acute hypoxic respiratory failure possibly from decompensated heart failure/or pneumonia intubated and admitted to ICU. We were consulted for history of CKD stage V and possible dialysis needs. In anticipation for eventual hemodialysis patient did undergo creation of right forearm AV fistula and was hoping for AV to be mature and ready for use once dialysis was indication. At this time AV fistula is not mature for hemo dialysis. Patient has likely had some progression of CKD, baseline creatinine had been around mid 5-6 range. Today his creatinine is 5.36 however this may be underestimated given hypervolemia; not surprising to see fluctuating serum creatinines given history of heart failure. Currently there is no acute or emergent need for hemodialysis initiation, potassium and acid/base acceptable and patient is starting to make urine on lasix gtt. Consult has been placed to surgery team for placement of tunneled HD catheter which will be tomorrow and we will plan for dialysis afterwards. We will likely plan for dialysis again . Continue on Lasix drip as ordered as patient is starting to make ur ine. Patient has history of metabolic acidosis and is on oral bicarbonate. We will continue on oral bicarbonate for now and once dialysis initiated can adjust dialysate bath; likely will see improvement in bicarb levels. We will consult social services assistant for outpatient hemodialysis placement at [facility] [place]. Will order HepB Sag for am. Hemoglobin acceptable, at goal, does not need BOLIVAR at this time. Further orders forthcoming as hospitalization evolves. Thank you for allowing us participate in the care of Mr. Burns. Nephrology attending addendum: The patient is seen and examined independently. 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 The patient is intubated on ventilator and cannot provide history. Checks x-ray does show pulmonary edema. He has 1+ edema of the lower extremities. I discussed nephrology plan with Dr. Mancera, the patient's primary hat liner. Plan has been made to start hemodialysis once AV fistula was ready to be used. Unfortunately, the patient has significant decline in GFR already. Although creatinine/eGFR is not much different than last visit, it would be difficult for the patient to handle volume changes even if he makes significant urine. Moreover, he is chronically acidotic which will be difficult for him to compensate without dialysis. Therefore, he will be dialyzed once vascular access is established. AV fistula is not yet ready to be used since it was placed less than [address] Judge has been consulted, and she will place tunneled dialysis catheter tomorrow. Fortunately, there is no urgent indication such as hyperkalemia for dialysis today. Michael Kim MD HPI Consult Data Date of Consult: 06/23/22 REPLACED BY [facility] Medical History Anemia ARF (acute renal failure) Back pain Bradycardia Cardiology follow-up encounter Central line complication Chronic kidney disease, stage IV (severe) Diabetes DM2 (diabetes mellitus, type 2) DVT (deep venous thrombosis) Essential hypertension Former smoker Gastric reflux High cholesterol High degree atrioventricular block History of complete heart block History of echocardiogram History of pacemaker History of renal disease History of steroid therapy History of stress test Hyperlipidemia Hypertensive urgency Kidney transplant candidate (01/31/19) Kidney transplant complication MRSA infection Pre-syncope Second degree heart block Type 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 Wears glasses Home Medications atorvastatin 40 mg tablet 40 mg PO QHS CHOLESTEROL 06/23/17 [History Last Taken 03/10/21 15:00] dulaglutide 1.5 mg/0.5 mL subcutaneous pen injector 1.5 mg SQ REYNA DIABETES 06/23/17 [History Last Taken 03/09/21] ferrous sulfate 325 mg (65 mg iron) tablet 325 mg PO DAILY supplement 10/24/18 [History Last Taken 03/10/21 09:00] aspirin 81 mg chewable tablet 81 mg PO DAILY heart health 10/02/20 [History Last Taken 03/10/21 09:00] glimepiride 4 mg tablet 4 mg PO DAILY diabetes 10/02/20 [History Last Taken 03/10/21 09:00] prednisone 5 mg tablet 5 mg PO DAILY steroid 10/02/20 [History Last Taken 03/10/21 09:00] sodium bicarbonate 650 mg tablet 650 mg PO BID supplement 10/02/20 [History Last Taken 03/10/21 15:00] tacrolimus 0.5 mg capsule, immediate-release 2 mg PO DAILY immunosuppresive 10/02/20 [History Last Taken 03/10/21 15:00] mycophenolate mofetil 250 mg capsule (CellCept) 250 mg PO BID transplant med 03/11/21 [History Last Taken Unknown] nifedipine 60 mg tablet,extended release 24 hr (Procardia XL) 60 mg PO DAILY blood pressure 03/11/21 [History Last Taken Unknown] tacrolimus 1 mg capsule, immediate-release 1 mg PO QHS immunosuppresive 03/11/21 [History Last Taken 03/10/21] lisinopril 5 mg tablet (Zestril) 5 mg PO BID #180 tabs 03/12/21 [Rx Last Taken Unknown] lorazepam 1 mg tablet (Ativan) 1 mg PO TID PRN anxiety #10 tabs 01/27/22 [Rx Last Taken Unknown] metolazone 5 mg tablet 5 mg PO DAILY #30 tabs 05/09/22 [Rx Last Taken Unknown] torsemide 40 mg tablet 40 mg PO DAILY #30 tabs 05/09/22 [Rx Last Taken Unknown] Allergy/AdvReac Type Severity Reaction Status Date / Time No Known Allergies Allergy Verified 06/17/22 13:39 Family History Father Pneumonia Mother CVA (cerebral vascular accident) Surgical History History of permanent cardiac pacemaker placement (03/11/21) Renal transplant recipient S/P arteriovenous (AV) fistula creation S/P colonoscopy Status post kidney transplant [place] teeth removed Social History household members: spouse Smoking Status: Former smoker how long ago did patient quit smoking: Quit 1993, 0.5 pk/day until quit. second hand exposure: Yes alcohol intake: current alcohol intake frequency: a few times a month substance use type: does not use Lab / Micro Data Result Diagrams: 06/23/22 05:28 06/23/22 05:28
[2022-06-23] MEDS: Heparin Injection (Vial) 5,000 UNIT/ML VIAL 5000 UNIT SC ×2 (13:58→21:34)
[2022-06-23] MEDS: Propofol 10MG/Ml 1,000 MG/100 ML Bottle 9.4 MG CONT INF (14:43)
[2022-06-23] MEDS: Acetaminophen 650 MG/20 ML UDC PO (15:12)
[2022-06-23 18:20] LABS: Bedside Glucose 222 mg/dL (74-106)
[2022-06-23] MEDS: Atorvastatin Calcium 40 MG Tablet GT (21:33)
[2022-06-23] MEDS: Tacrolimus Anhydrous 1 MG Capsule GT (21:34)
[2022-06-24] VITALS (31 sets, daily range): BP systolic 98–155; BP diastolic 45–76; PULSE 75–100; RESP 14–29; TEMP 37.4–39; O2SAT 92–100; BMI 34.4
[2022-06-24] MEDS: Insulin Lispro 100 UNIT/ML INSULN.PEN SC ×3 (00:03→13:06)
[2022-06-24] MEDS: Acetaminophen 650 MG/20 ML UDC PO (00:03)
[2022-06-24] MEDS: Propofol 10MG/Ml 1,000 MG/100 ML Bottle 9.4 MG CONT INF ×3 (00:04→18:01)
[2022-06-24 00:25] LABS: Bedside Glucose 170 mg/dL (74-106)
[2022-06-24 04:13] LABS: Absolute Lymphocyte Count 0.98 X10^3/uL (0.83-4.51); Absolute Neutrophil Count 10.7 X10^3/uL (2.0-7.7); Basophil# 0.02 X10^3/uL; Basophil% 0.2 % (0-1); Eosinophil# 0.02 X10^3/uL; Eosinophils% 0.2 % (0-5); Hematocrit 30.5 % (40-54); Hemoglobin 9.3 g/dL (13.0-16.5); Lymphocyte # 0.98 X10^3/ul (0.83-4.51); Lymphocyte % 7.4 % (19-41); Mean Corp Hgb Conc 30.5 g/dL (32-36); Mean Corpuscular Hgb 24.6 pg (27.0-32.0); Mean Corpuscular Volume 80.7 fL (80-94); Mean Platelet Vol. 11.4 fl (6.2-12.0); Monocyte# 1.45 X10^3/uL; Monocyte% 10.9 % (0-10); NRBC Flagged by Analyzer 0 % (0-5); Neutrophil # 10.72 X10^3/uL (2.7-7.7); Neutrophil % 80.8 % (47-70); Platelet Count 203 K/mm3 (150-450); RBC Distribution Width CV 15.8 % (11.6-14.6); RBC Distribution Width SD 45.4 fl (35.1-43.9); Red Blood Count 3.78 M/mm3 (4.6-6.2); White Blood Count 13.3 K/mm3 (4.4-11.0)
[2022-06-24 04:45] LABS: Anion Gap 14 (5-15); BUN 109 mg/dL (7-18); BUN/Creat Ratio 18.1 RATIO (10-20); Chloride 109 mmol/L (98-107); Creatinine, Serum 6.01 mg/dL (0.70-1.30); EST Glomerular Filtration Rate 10 mL/min (>60); Est Glom Filt Rate - Afr Amer 12 mL/min (>60); Estimated Creatinine Clearance 10.27 ml/min; Glucose 185 mg/dL (74-106); Magnesium 1.5 mg/dL (1.6-2.6); Phosphorus 6.4 mg/dL (2.5-4.9); Potassium 4.8 mmol/L (3.5-5.1); Sodium Level 142 mmol/L (136-145)
[2022-06-24 04:46] LABS: Hepatitis B Surface Antigen Non-Reactive (Nonreactive)
[2022-06-24] MEDS: Heparin Injection (Vial) 5,000 UNIT/ML VIAL 5000 UNIT SC ×3 (06:01→21:45)
--- NOTE | 2022-06-24 09:28 | PN.RENAL_ITS ---
Subjective Subjective Following up for ESRD. The patient was intubated. Cannot do ROS Objective Data Objective Data Vital Signs: Vital Signs Temp Pulse Resp BP Pulse Ox O2 Del Method O2 Flow Rate 100.9 F H 92 17 137/68 H 99 Mechanical Ventilator 70 06/24/22 09:00 06/24/22 09:00 06/24/22 09:00 06/24/22 09:00 06/24/22 09:00 06/24/22 09:00 06/23/22 10:00 FiO2 40 06/24/22 09:00 Oxygen Flow Rate (L/min) 70 Oxygen Delivery Method Mechanical Ventilator Weight: 102.92 kg Body Mass Index (BMI) 34.4 Intake & Output: Intake and Output for Last 24 Hours 06/22/22 06/23/22 06/24/22 23:59 23:59 23:59 Intake Total 152.35 / 257.55 213.14 / 213.14 Output Total 1000 / 1000 750 / 750 Balance -847.65 / -742.45 -536.86 / -536.86 Lab / Micro Data Result Diagrams: 06/25/22 03:10 06/25/22 03:10 Labs: Laboratory Results - last 24 hr 06/23/22 05:28: Diff Path Review Reviewed 06/23/22 07:55: MRSA (PCR) Negative 06/23/22 11:27: POC Glucose 211 H 06/23/22 12:35: PT 14.0, INR 1.1, APTT 26.2 06/23/22 18:02: POC Glucose 222 H 06/23/22 23:47: POC Glucose 170 H 06/24/22 04:00: WBC 13.3 H, RBC 3.78 L, Hgb 9.3 L, Hct 30.5 L, MCV 80.7, MCH 24.6 L, MCHC 30.5 L, RDW Std Deviation 45.4 H, RDW Coeff of Yanely 15.8 H, Plt Count 203, MPV 11.4, Immature Gran % (Auto) 0.500, Neut % (Auto) 80.8 H, Lymph % (Auto) 7.4 L, [place] % (Auto) 10.9 H, Eos % (Auto) 0.2, Baso % (Auto) 0.2, Absolute Neuts (auto) 10.7 H, Absolute Lymphs (auto) 0.98, Nucleated RBC % 0 06/24/22 04:00: Sodium 142, Potassium 4.8, Chloride 109 H, Carbon Dioxide 19.0 L , Anion Gap 14, BUN 109 H*, Creatinine 6.01 H, Estim Creat Clear Calc 10.27, Est GFR (MDRD) Af Amer 12 L, Est GFR (MDRD) Non-Af 10 L, BUN/Creatinine Ratio 18.1, Glucose 185 H, Calcium 6.0 L*, Phosphorus 6.4 H, Magnesium 1.5 L 06/24/22 04:00: Hep Bs Antigen Non-Reactive Micro: Microbiology 06/23/22 09:22 Sputum, Induced/Lukens Gram Stain - Final 06/23/22 06:00 Nasal Secretion SARS-CoV-2 & FLU Antigen (Rapid) - Final Influenzae A Physical Exam Narrative Patient intubated, resting quietly, no apparent distress Lung sounds clear anteriorly, no rhonchi, diminished breath sounds posterior bases S1, S2, RRR Abdomen soft, rounded, positive bowel sounds No pitting edema noted bilateral lower legs or feet Indwelling Beasley with clear yellow urine in bag Right forearm AV fistula positive thrill and bruit Assessment & Plan Assessment/Plan (1) CKD (chronic kidney disease) stage 5, GFR less than 15 ml/min: (2) Acute respiratory failure with hypoxia: (3) Influenza A: PLAN: Plan Impression/Plan: The patient is a 77-year-old man with past history of ESRD secondary to FSGS status post living donor kidney transplant (01/31/2019), type 2 diabetes mellitus, hypertension, and hyperlipidemia. The patient has chronic allograft nephropathy and plan has been made to restart hemodialysis. The patient had AV fistula placed by Dr. Sorto on 05/18/2022. The patient is admitted to the hospital on 06/23/2022 with acute hypoxic respiratory failure thought to be secondary to influenza A infection along with pulmonary edema. Nephrology is following for management of kidney transplantation in the setting of failing allograft. ESRD secondary to FSGS status post living related donor kidney transplantation with failing renal allograft. 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 He was treated with plasma exchange without much improvement. Although renal function is not much different than his prior admission in April 2022, it will be difficult for the patient to handle volume and tolerate medications that would help to keep him euvolemic. Moreover, there is already subtle signs of uremia per my discussion with the patient's primary silk trimmer. Therefore, we recommend restarting hemodialysis after vascular access is placed by surgery. Unfortunately, right forearm AV fistula was just placed on 05/18/2022 and is not yet ready to be used. We will proceed with hemodialysis after tunneled dialysis catheter placement today. Chronic immunosuppression for kidney transplantation. The patient is on tacrolimus 2 mg every morning and 1 mg every afternoon and pr ednisone 5 mg once per day. Given presence of influenza A infection, we are holding mycophenolate for now. Once dialysis starts, I will discuss immunosuppression weaning with transplant team in [place]. I suspect they would want the patient on prednisone indefinitely and tacrolimus for a while given recurrence of FSGS in the transplanted kidney. Metabolic acidosis. Likely due to chronic kidney disease. The patient is on sodium bicarbonate which can likely be stopped once he is on dialysis. Acute hypoxic respiratory failure. Likely due to influenza and volume overload. The patient is ventilator dependent. Ventilator management as per manager inventory management. We have been keeping him O>I with furosemide drip. Volume status seems improved, so I think we can transition him back to intermittent IV diuretic. I will discussed this with Dr. Batres.
[2022-06-24] MEDS: Sodium Bicarbonate 650 MG Tablet GT ×2 (09:33→21:45)
[2022-06-24] MEDS: Ferrous Sulfate 300 MG/5 ML UDC GT (09:33)
[2022-06-24] MEDS: Tacrolimus Anhydrous 1 MG Capsule 2 MG GT (09:33)
[2022-06-24] MEDS: predniSONE 5 MG Tablet GT (09:33)
[2022-06-24] MEDS: Aspirin 81 MG TAB.CHEW GT (09:33)
[2022-06-24] MEDS: Bupiv/Epi 0.25% 30 ML Vial (11:40)
[2022-06-24] MEDS: Heparin 10,000 UNITS/10 ML Vial 10000 UNITS (12:00)
--- NOTE | 2022-06-24 12:18 | PCM.OPRPT ---
Report of Operation Date of Procedure: 06/24/22 Pre-Operative Diagnosis: Chronic kidney disease, need for dialysis access Post-Operative Diagnosis: Same, clotted right IJ Surgery/Procedure Performed:: 1.Attempted right IJ access, placement of left IJ tunneled dialysis catheter 2. Use of ultrasound 3. Use of fluoroscopy Description of Surgical Findings:: Right IJ was noted to be clotted and unable to access. Surgeon: Raisa Judge Type of Anesthesia: General/Supplemental Anesthesiologist: Milind Adair Special Medications: Ancef 2 g IV x1 Specimen's removed: None Estimated Blood Loss (mL): < 10 cc Description of Procedure: After informed consent was given, the patient was brought to the operating room and placed in the supine position. Appropriate time out protocol was followed. The was then given IV propofol for additional sedation as patient was already intubated and sedated in the ICU.. The patient's bilateral upper chest and neck were then prepped with a surgical skin preparation and sterile surgical drapes were placed. After proper landmarks were ascertained, the skin at the upper right chest area was then infiltrated with 1:1 mixture of 1% lidocaine with epinephrine and 0.5% maricaine. Attempted to access the right IJ however unable to get access. Right IJ vessel was clotted, Steri-Strips and OpSite placed on the right neck. Did reprepped and draped the left chest and neck. A needle trocar was then inserted into the left internal jugular vein with ultrasound guidance-multiple vessels were viewed with u/s and the left IJ was chosen-- and there was good aspiration of venous blood. A wire was then threaded into the needle trocar and this was visualized under fluoroscopy to ensure that the wire was in the superior vena cava. Once this was done, then the needle trocar was removed. A small incision was made with an 11 blade knife at the wire entrance site. The dilator x2 with the introducer sheath attached was then placed over the wire into the right internal jugular vein via the Seldinger technique and this was visualized under fluoroscopy. Next the introducer and sheath were in proper position as visualized by fluoroscopy. The location of the cuffed was estimated on the skin, an incision was made with a 15 blade scalpel. The 14.5 Fr x 23 cm Palindrome dual lumen (Lot [id number] reference [id number]) was tunneled from the chest incision to the right neck incision. The sheath was removed. The catheter was placed through the introducer and was positioned with its tip at the junction of the superior vena cava and the right atrium as visualized under fluoroscopy. The cuff of the catheter was in the subcutaneous tissue. The catheter flushed and suri well with saline. Catheter was also flushed with 1.6 cc of 1-10,000 of heparin. Hemostasis was assured. Silver dressing was placed at the catheter exit site. Catheter was sutured with 3-0 nylon sutures. The neck incision was sutured with interrupted 3-0 Vicryl interrupted sutures x2 and Steri-Strips were placed. A large OpSite was placed over the catheter site and a small OpSite over the neck incision. The patient tolerated the procedure well. Grafts/Implants Used: 14.5 Fr x 23 cm Palindrome dual lumen (Lot [id number] reference [id number])
--- NOTE | 2022-06-24 12:50 | RAD_ITS ---
STUDY: X-RAY CHEST REASON FOR EXAM: Male, 77 years old. Dialysis catheter placement TECHNIQUE: Single AP portable view of the chest. COMPARISON: 06/23/2022 FINDINGS: ET tube tip is 3 7 m above the bi, NG tube tip not seen but is well below the diaphragm. Stable appearance of a left subclavian pacemaker EKG leads. Since the previous study a left sided dialysis catheter has been placed, tips in the proximal SVC without complications The lungs are clear and expanded. There is no demonstrated pleural abnormality. Normal size heart. Normal mediastinum and yoel. Normal visualized pulmonary arteries. There is atherosclerotic calcification of the aortic arch with tortuosity. There are diffuse degenerative changes of the visualized thoracic spine. Normal visualized ribs, clavicles, and shoulders. There is no demonstrated abnormality of the visualized soft tissue structures of the upper abdomen. RAD/Chest 1 View (Portable) IMPRESSION: Support lines and tubes as described, no complications No acute pulmonary process Electronically Signed: Saurabh Horowitz MD at 13:16 EDT ,
--- NOTE | 2022-06-24 13:05 | PCM.PN.INT ---
Assessment & Plan Assessment/Plan (1) Acute respiratory failure with hypoxia: PLAN: Plan RECOMMENDATIONS: 1. Hold on antibiotics given negative sputum culture 2. Likely hold on Tamiflu given delayed presentation 3. Lasix drip per nephrology 4. Potential hemodialysis prior to extubation 5. Wean oxygen as tolerated. 6. Potential extubation tomorrow 7. Defer immunosuppression to nephrology IMPRESSIONS: 1. Acute hypoxic respiratory failure secondary to influenza A Unclear etiology at this time. Patient does test positive for influenza A and had was reportedly not felt well for over a week. This would put patient out of the window for Tamiflu therapy. Cultures are negative to this point. Monitor off of antibiotics. Fever likely secondary to influenza A. Patient was significantly hypertensive on presentation and may have an element of HFpEF also contributing. Agree with the Lasix drip, but this may be able to be discontinued if patient is initiated on hemodialysis. Patient has tested positive for influenza and is on immunosuppression secondary to renal transplant. Defer to nephrology on whether this should be discontinued. Recent echocardiogram does show mild aortic stenosis with diastolic dysfunction and elevated pulmonary artery pressures. 2. Acute on chronic HFpEF/CKD stage IV Complicated by patient's renal function. Patient has been placed on a Lasix drip. Nephrology has been consulted. Patient does have a fistula, but is not clear on whether this is functional at this time. Patient may need a hemodialysis line placed temporarily. Defer to nephrology. 3. Hyperphosphatemia/secondary hyperparathyroidism/diabetes mellitus type 2/anemia of chronic disease/history of complete heart block Complicates care, management, recovery and prognosis. Likely okay to initiate tube feeds. Agree with holding baseline diabetic medications and using sliding scale. Cannot exclude the need for basal insulin as patient likely has a high endogenous adrenergic surge given problem #1. TIME: 35 minutes critical care time spent addressing patient's acute hypoxic respiratory failure, CHF, CKD stage IV, review of all data and collaboration with care team Subjective Subjective Patient did well overnight. Oxygenation status has significantly improved. Patient did have a fever overnight, but no hypotension was noted. Patient is to have a tunneled hemodialysis line today with subsequent dialysis following placement. Did discuss at length with the patient's via phone about his condition and she is up-to-date. Objective Data Objective Data Vital Signs: Vital Signs Temp Pulse Resp BP Pulse Ox O2 Del Method O2 Flow Rate 37.9 C H 88 26 H 110/55 L 100 Mechanical Ventilator 70 06/24/22 11:00 06/24/22 11:00 06/24/22 11:00 06/24/22 11:00 06/24/22 11:00 06/24/22 11:00 06/23/22 10:00 FiO2 30 06/24/22 11:00 Oxygen Flow Rate (L/min) 70 Oxygen Delivery Method Mechanical Ventilator Weight: 102.92 kg Body Mass Index (BMI) 34.4 Intake & Output: Intake and Output for Last 24 Hours 06/22/22 06/23/22 06/24/22 23:59 23:59 23:59 Intake Total 152.35 / 257.55 345.34 / 345.34 Output Total 1000 / 1000 750 / 750 Balance -847.65 / -742.45 -404.66 / -404.66 Lab / Micro Data Attestation: I reviewed the patient's lab results. Result Diagrams: 06/24/22 04:00 06/24/22 04:00 Labs: Laboratory Results - last 24 hr 06/23/22 18:02: POC Glucose 222 H 06/23/22 23:47: POC Glucose 170 H 06/24/22 04:00: WBC 13.3 H, RBC 3.78 L, Hgb 9.3 L, Hct 30.5 L, MCV 80.7, MCH 24.6 L, MCHC 30.5 L, RDW Std Deviation 45.4 H, RDW Coeff of Yanely 15.8 H, Plt Count 203, MPV 11.4, Immature Gran % (Auto) 0.500, Neut % (Auto) 80.8 H, Lymph % (Auto) 7.4 L, [place] % (Auto) 10.9 H, Eos % (Auto) 0.2, Baso % (Auto) 0.2, Absolute Neuts (auto) 10.7 H, Absolute Lymphs (auto) 0.98, Nucleated RBC % 0 06/24/22 04:00: Sodium 142, Potassium 4.8, Chloride 109 H, Carbon Dioxide 19.0 L, Anion Gap 14, BUN 109 H*, Creatinine 6.01 H, Estim Creat Clear Calc 10.27, Est GFR (MDRD) Af Amer 12 L, Est GFR (MDRD) Non-Af 10 L, BUN/Creatinine Ratio 18.1, Glucose 185 H, Calcium 6.0 L*, Phosphorus 6.4 H, Magnesium 1.5 L 06/24/22 04:00: Hep Bs Antigen Non-Reactive Micro: Microbiology 06/23/22 09:22 Sputum, Induced/Lukens Gram Stain - Final 06/23/22 09:22 Sputum, Induced/Lukens Respiratory Culture - Preliminary Appears to be normal respiratory maxine. Further studies to follow. 06/23/22 06:00 Nasal Secretion SARS-CoV-2 & FLU Antigen (Rapid) - Final Influenzae A Physical Exam Const no apparent distress and well nourished Constitutional Narrative: Intubated and sedated General Appearance: patient mechanically ventilated HEENT normocephalic and head/scalp atraumatic Eyes conjunctivae normal and no scleral icterus Neck no lymphadenopathy, supple and No no JVD Resp no retractions and no use of accessory muscles Resp Narrative: Good ventilator synchrony Auscultation: diminished lung sounds; Negative for rales, rhonchi or wheezes Cardio regular rate, S1 normal heart sound, S2 normal heart sound, no rub, no gallops and no clicks Cardio Narrative: V paced rhythm Heart Sounds: murmur systolic II/ soft early right sternal border GI normal to inspection, nondistended, normoactive bowel sounds and soft to palpation Extremity no clubbing, cyanosis or edema Skin no rashes or lesions noted, no wounds, skin turgor normal, no jaundice, no petechiae and no mottling Skin Narrative: Right forearm fistula with palpable thrill and auditory bruit Neuro moves all extremities and no focal motor deficits Psych Mood & Affect: flat affect Charges/Coding Procedures Hospitalists Procedures: 78539 Critial Care 1st Hr
[2022-06-24 13:25] LABS: Bedside Glucose 185 mg/dL (74-106)
[2022-06-24] MEDS: Furosemide 500 MG in Empty Viaflex 50 mL 1 EACH CONT INF (13:40)
--- NOTE | 2022-06-24 14:41 | PCM.PN.HOSP ---
Reason for Visit Reason for Visit: Shortness of breath Subjective Subjective Patient remains intubated and sedated. Does open his eyes and follow some commands. No issues overnight. Has diuresed well. Plan is for tunneled dialysis catheter placement today and then dialysis later today. Objective Data Objective Data Vital Signs: Vital Signs Temp Pulse Resp BP Pulse Ox O2 Del Method O2 Flow Rate 99.5 F H 90 26 H 108/59 L 93 Mechanical Ventilator 70 06/24/22 14:00 06/24/22 14:00 06/24/22 14:00 06/24/22 14:00 06/24/22 14:00 06/24/22 14:00 06/23/22 10:00 FiO2 30 06/24/22 14:00 Oxygen Flow Rate (L/min) 70 Oxygen Delivery Method Mechanical Ventilator Weight: 102.92 kg Body Mass Index (BMI) 34.4 Intake & Output: Intake and Output for Last 24 Hours 06/22/22 06/23/22 06/24/22 23:59 23:59 23:59 Intake Total 152.35 / 257.55 360.69 / 360.69 Output Total 1000 / 1000 750 / 750 Balance -847.65 / -742.45 -389.31 / -389.31 Lab / Micro Data Result Diagrams: 06/24/22 04:00 06/24/22 04:00 Labs: Laboratory Results - last 24 hr 06/23/22 18:02: POC Glucose 222 H 06/23/22 23:47: POC Glucose 170 H 06/24/22 04:00: WBC 13.3 H, RBC 3.78 L, Hgb 9.3 L, Hct 30.5 L, MCV 80.7, MCH 24.6 L, MCHC 30.5 L, RDW Std Deviation 45.4 H, RDW Coeff of Yanely 15.8 H, Plt Count 203, MPV 11.4, Immature Gran % (Auto) 0.500, Neut % (Auto) 80.8 H, Lymph % (Auto) 7.4 L, [place] % (Auto) 10.9 H, Eos % (Auto) 0.2, Baso % (Auto) 0.2, Absolute Neuts (auto) 10.7 H, Absolute Lymphs (auto) 0.98, Nucleated RBC % 0 06/24/22 04:00: Sodium 142, Potassium 4.8, Chloride 109 H, Carbon Dioxide 19.0 L, Anion Gap 14, BUN 109 H*, Creatinine 6.01 H, Estim Creat Clear Calc 10.27, Est GFR (MDRD) Af Amer 12 L, Est GFR (MDRD) Non-Af 10 L, BUN/Creatinine Ratio 18.1, Glucose 185 H, Calcium 6.0 L*, Phosphorus 6.4 H, Magnesium 1.5 L 06/24/22 04:00: Hep Bs Antigen Non-Reactive 06/24/22 13:06: POC Glucose 185 H Micro: Microbiology 06/23/22 09:22 Sputum, Induced/Lukens Gram Stain - Final 06/23/22 09:22 Sputum, Induced/Lukens Respiratory Culture - Preliminary Appears to be normal respiratory maxine. Further studies to follow. 06/23/22 06:00 Nasal Secretion SARS-CoV-2 & FLU Antigen (Rapid) - Final Influenzae A Radiography Diagnostic Testing: Radiology Impression Chest X-Ray 06/24/22 12:50 IMPRESSION: Support lines and tubes as described, no complications No acute pulmonary process Electronically Signed: Saurabh Horowitz MD at 13:16 EDT Reading Location ID and State: [address] [place] [address] , Service support , Physical Exam Const no apparent distress and well nourished Constitutional Narrative: Obese, intubated and sedated, older, [place]kin[place] male, lying in bed, appears comfortable at this time, patient does open eyes and follow some intermittent commands despite being on sedation HEENT normocephalic, head/scalp atraumatic and moist oral mucous membranes HEENT Narrative: ET tube and OG in place Head and Scalp: normocephalic Resp No normal respiratory effort, no retractions, no use of accessory muscles and No clear to auscultation bilaterally Resp Narrative: Few crackles at the bases, patient mechanically ventilated Auscultation: Negative for rhonchi or wheezes Cardio regular rate, S1 normal heart sound, S2 normal heart sound, no rub, no gallops and no clicks; Negative for regular rhythm or no murmurs Cardio Narrative: V paced rhythm, 2 out of 6 systolic murmur loudest at right upper sternal border GI normal to inspection, nondistended, normoactive bowel sounds, soft to palpation and non-tender Extremity no clubbing, cyanosis or edema Extremity Narrative: 2+ pedal pulses Neuro Neuro Narrative: Patient is intubated and sedated, spontaneously moves all extremities intermittently follows commands, will awaken to name Psych Psych Narrative: Unable to assess Assessment & Plan Assessment/Plan (1) Acute exacerbation of CHF (congestive heart failure): (2) Influenza A: (3) Acute respiratory failure with hypoxia: (4) Leukocytosis: (5) Hypomagnesemia: PLAN: Plan Acute hypoxic respiratory failure secondary to decompensated HFpEF/influenza A -Per patient has been noncompliant with fluid and salt intake -Intubated in the emergency department on 06/23/2022 -Continue Lasix drip until discontinued by nephrology -We will dialysis placement today with dialysis to follow -Continue mechanical ventilation and wean as able -Sputum cultures negative -As needed albuterol -Hold on antimicrobials as this appears to be related to heart failure and viral infection for now but low threshold for antibiotics given chronic immunocompromise state -Pulmonary/critical care medicine following-appreciate input Acute exacerbation of HFpEF -related to volume overload with renal dysfunction -Chest x-ray looks like worsening volume overload compared to previous -Lasix drip until discontinued by nephro -HD per nephrology once tunneled dialysis catheter in place -Daily weights -Strict I's and O's -Fluid restriction once p.o. started -Sodium restriction once p.o. started -Echocardiogram done on 05/07/2022 shows an EF of 65% with mild aortic stenosis stage II diastolic dysfunction and a right ventricular systolic pressure at 38 mmHg Influenza A infection -Unclear as to how much this is contributing to his respiratory distress -Initiation of infection is unclear as well as patient has had shortness of breath for 2 weeks -Supportive care Hypocalcemia -When corrected for albumin calcium level is within normal limits -No supplementation required Hyperphosphatemia -Related to renal failure -Continue phosphate binders Secondary hyperparathyroidism related to renal disease -Management per nephrology CKD stage IV -Patient with history of renal transplant 3 years ago with transplant failure -Continue home prednisone -Continue home bicarb -Continue home tacrolimus -Lasix drip with management per nephrology -Dialysis catheter-tunneled placed today -HD per nephrology -Hold home CellCept per discussion with nephrology -Nephrology following-appreciate input-discussed with Dr. Kim earlier today Hypertension/hyperlipidemia -Continue statin -Hold Procardia -Hold home lisinopril -As needed hydralazine DM-2 -Hold home glimepiride -Hold home Trulicity -A.m. blood sugars 185 -Add Lantus 10 units at at bedtime -May need basal insulin but will monitor for needs -Sliding scale -Accu-Cheks every 6 hours -N.p.o. for now Hypomagnesemia -Mag bolus given -Repeat lab in a.m. Chronic anemia secondary to renal disease -Hemoglobin is stable and at baseline -EPO per nephrology -Repeat CBC in a.m. -Patient does follow as an outpatient with hematology History of complete heart block -Patient has permanent pacemaker placed on 03/11/2021 -Pacing is ventricular Anxiety -Hold home lorazepam DVT prophylaxis -Continue subcu heparin CODE STATUS -Full code Charges/Coding Visit Charges Inpatient E&M: 98485 Subs Hosp L2
--- NOTE | 2022-06-24 16:31 | CASEMGMT ---
RN CM called for initial transition planning/care coordination assessment as patient is intubated. RN CM introduced self and role at [facility]. Patient lying in bed, alert and oriented. Patient willing to participate in assessment and is able to answer all questions appropriately. Care providers, pharmacy, and demographics verified. wishes for patient to discharge to possible rehab facility, will monitor progress with therapy. states she has no further needs or concerns at this time. CM to follow for discharge planning needs that may arise. PCP: Zachary Specialists: Calderon, hoisting pile driving engineer; Demario, oncologist; [facility] transplant team Preferred Pharmacy: [facility] retail Insurance: [facility] [employer] Prescription Benefit: yes Living Will/HPOA: yes, Milena Garcia LNOK: , children Living Arrangements: Patient lives with in 2 story home with bed and bath on first floor. 3 steps and railing to enter the home. Transportation: self, DME/HHC: Patient has shower chair, raised toilet, and cpap at home. No previous HHC or SNF Disposition Plan: Patient to discharge to possible rehab facility vs HHC at discharge pending progress with therapy. Frida GUDINON, RN, CM
[2022-06-24] MEDS: Heparin 10,000 UNITS/10 ML Vial 3800 UNITS IV (16:40)
--- NOTE | 2022-06-24 17:08 | DIALYSIS ---
Hemodialysis complete. 2 hour run, 3k bath. Net fluid balance = 0 ml. Patient tolerated HD tx well. Left chest CVC: site benign. Dressing dry and intact. Lumen flushed with NS, filled to volume with Heparin, clamped and capped. Report given to primary RN, Jyotsna Gil.
[2022-06-24 17:30] LABS: Bedside Glucose 144 mg/dL (74-106)
[2022-06-24] MEDS: Insulin Glargine-YFGN 100 UNIT/ML Pen 10 UNIT SC (21:44)
[2022-06-24] MEDS: Tacrolimus Anhydrous 1 MG Capsule GT (21:45)
[2022-06-24] MEDS: Atorvastatin Calcium 40 MG Tablet GT (21:45)
[2022-06-24 22:16] LABS: Bedside Glucose 117 mg/dL (74-106)
[2022-06-24 22:16] LABS: Bedside Glucose 160 mg/dL (74-106)
[2022-06-25] VITALS (29 sets, daily range): BP systolic 100–159; BP diastolic 49–77; PULSE 85–107; RESP 14–27; TEMP 36.8–38.2; O2SAT 92–100; BMI 33.3
[2022-06-25 00:25] LABS: Bedside Glucose 106 mg/dL (74-106)
[2022-06-25 03:24] LABS: Absolute Lymphocyte Count 1.04 X10^3/uL (0.83-4.51); Absolute Neutrophil Count 7.3 X10^3/uL (2.0-7.7); Basophil# 0.02 X10^3/uL; Basophil% 0.2 % (0-1); Eosinophil# 0.12 X10^3/uL; Eosinophils% 1.3 % (0-5); Hematocrit 28.5 % (40-54); Lymphocyte # 1.04 X10^3/ul (0.83-4.51); Mean Corp Hgb Conc 31.6 g/dL (32-36); Mean Corpuscular Volume 79.2 fL (80-94); Mean Platelet Vol. 12.5 fl (6.2-12.0); Monocyte# 0.96 X10^3/uL; Monocyte% 10.1 % (0-10); NRBC Flagged by Analyzer 0 % (0-5); Neutrophil # 7.32 X10^3/uL (2.7-7.7); Neutrophil % 77.1 % (47-70); Platelet Count 197 K/mm3 (150-450); RBC Distribution Width CV 15.3 % (11.6-14.6); RBC Distribution Width SD 43.8 fl (35.1-43.9); White Blood Count 9.5 K/mm3 (4.4-11.0)
[2022-06-25 03:47] LABS: Anion Gap 12 (5-15); BUN 77 mg/dL (7-18); BUN/Creat Ratio 15.3 RATIO (10-20); Calcium,Total 6.4 mg/dL (8.5-10.1); Chloride 105 mmol/L (98-107); Creatinine, Serum 5.03 mg/dL (0.70-1.30); EST Glomerular Filtration Rate 12 mL/min (>60); Est Glom Filt Rate - Afr Amer 15 mL/min (>60); Estimated Creatinine Clearance 12.28 ml/min; Glucose 125 mg/dL (74-106); Magnesium 1.9 mg/dL (1.6-2.6); Phosphorus 6.8 mg/dL (2.5-4.9); Potassium 4.6 mmol/L (3.5-5.1); Sodium Level 141 mmol/L (136-145)
[2022-06-25] MEDS: Propofol 10MG/Ml 1,000 MG/100 ML Bottle 9.4 MG CONT INF (03:51)
[2022-06-25 06:01] LABS: Base Excess -3 mmol/L (-2 to +2); Bicarbonate 21.1 mmol/L (22-26); Blood Gas Specimen Type ART; FI02 30; Mode CPAP/PS; O2 Delivery Device Adult Vent; PEEP 5; PO2 72 mmHG (75-100); PS 5; SITE L Radial; SO2 95 % (95-99); Total Carbon Dioxide 22 mmol/L; pCO2 30.1 mmHg (35-45); pH 7.45 (7.35-7.45)
--- NOTE | 2022-06-25 07:06 | PN.SURG_ITS ---
Subjective Subjective Patient tolerated dialysis well yesterday. No issues with the catheter. Planning for extubation this morning. Objective Data Objective Data Vital Signs: Vital Signs Temp Pulse Resp BP Pulse Ox O2 Del Method O2 Flow Rate 100.6 F H 96 19 H 150/69 H 95 Mechanical Ventilator 2 06/25/22 04:00 06/25/22 06:26 06/25/22 06:26 06/25/22 06:00 06/25/22 06:27 06/25/22 06:27 06/24/22 21:00 FiO2 30 06/25/22 06:27 Oxygen Flow Rate (L/min) 2 Oxygen Delivery Method Mechanical Ventilator Weight: 220 lb Body Mass Index (BMI) 33.3 Intake & Output: Intake and Output for Last 24 Hours 06/23/22 06/24/22 06/25/22 23:59 23:59 23:59 Intake Total 152.35 / 257.55 417.09 / 417.09 84.60 / 84.60 Output Total 1000 / 1000 1150 / 1210 270 / 270 Balance -847.65 / -742.45 -732.91 / -792.91 -185.40 / -185.40 Lab / Micro Data Result Diagrams: 06/25/22 03:10 06/25/22 03:10 Labs: Laboratory Results - last 24 hr 06/24/22 05:55: POC Glucose 160 H 06/24/22 13:06: POC Glucose 185 H 06/24/22 17:11: POC Glucose 144 H 06/24/22 21:43: POC Glucose 117 H 06/25/22 00:06: POC Glucose 106 06/25/22 03:10: WBC 9.5, RBC 3.60 L, Hgb 9.0 L, Hct 28.5 L, MCV 79.2 L, MCH 25.0 L, MCHC 31.6 L, RDW Std Deviation 43.8, RDW Coeff of Yanely 15.3 H, Plt Count 197, MPV 12.5 H, Immature Gran % (Auto) 0.300, Neut % (Auto) 77.1 H, Lymph % (Auto) 11.0 L, [place] % (Auto) 10.1 H, Eos % (Auto) 1.3, Baso % (Auto) 0.2, Absolute Neuts (auto) 7.3, Absolute Lymphs (auto) 1.04, Nucleated RBC % 0 06/25/22 03:10: Sodium 141, Potassium 4.6, Chloride 105, Carbon Dioxide 24.0, Anion Gap 12, BUN 77 H, Creatinine 5.03 H, Estim Creat Clear Calc 12.28, Est GFR (MDRD) Af Amer 15 L, Est GFR (MDRD) Non-Af 12 L, BUN/Creatinine Ratio 15.3, Glucose 125 H, Calcium 6.4 L*, Phosphorus 6.8 H, Magnesium 1.9 Micro: Microbiology 06/23/22 09:22 Sputum, Induced/Lukens Gram Stain - Final 06/23/22 09:22 Sputum, Induced/Lukens Respiratory Culture - Preliminary Appears to be normal respiratory maxine. Further studies to follow. 06/23/22 06:00 Nasal Secretion SARS-CoV-2 & FLU Antigen (Rapid) - Final Influenzae A ABG Data ABG results: ABG 06/25/22 05:56 Specimen Type ART Sample Site L Radial pH 7.45 Bicarbonate Actual 21.1 L Total CO2 22 Base Excess -3 L O2 Saturation 95 O2 % 30 ABG pCO2 30.1 L ABG pO2 72 L Hans Test N/A O2 Delivery Device Adult Vent Vent Mode CPAP/PS POC PEEP 5 POC Pressure Suppt 5 Radiography Diagnostic Testing: Radiology Impression Chest X-Ray 06/24/22 12:50 IMPRESSION: Support lines and tubes as described, no complications No acute pulmonary process Electronically Signed: Saurabh Horowitz MD at 13:16 EDT Reading Location ID and State: [address] [place] [address] , Service support , Physical Exam Narrative Patient is intubated but alert, left IJ tunneled dialysis catheter in place dressed clean dry and intact. Const no apparent distress Cardio regular rate Assessment & Plan Assessment/Plan (1) CKD (chronic kidney disease) stage 5, GFR less than 15 ml/min: (2) Acute respiratory failure with hypoxia: (3) Influenza A: PLAN: Plan Patient tolerated dialysis well yesterday. No issues with dialysis catheter. Call with any questions. Raisa Judge M.D. Pager: [phone] [facility] [address] [place] [address], Outpatient [facility]ilion, [address] [place] [id number] Office: [phone]
--- NOTE | 2022-06-25 07:27 | PN.CC_ITS ---
Assessment & Plan Assessment/Plan (1) Acute respiratory failure with hypoxia: PLAN: Plan RECOMMENDATIONS: 1. Continue to hold on antibiotics given negative sputum culture 2. Likely hold on Tamiflu given delayed presentation 3. Anticipate dialysis later today 4. Okay to proceed with extubation 5. Wean oxygen as tolerated. 6. Defer immunosuppression to nephrology 7. Patient hemodynamically stable on room air. Will sign off from a critical care perspective IMPRESSIONS: 1. Acute hypoxic respiratory failure secondary to influenza A Unclear etiology at this time. Patient does test positive for influenza A and had was reportedly not felt well for over a week. This would put patient out of the window for Tamiflu therapy. Cultures are negative to this point. Monitor off of antibiotics. Fever likely secondary to influenza A. Patient was significantly hypertensive on presentation and may have an element of HFpEF also contributing. Patient did have some diuresis with Lasix drip, but is now on hemodialysis. Patient may benefit from volume removal. Patient has tested positive for influenza and is on immunosuppression secondary to renal transplant. Defer to nephrology on whether this should be discontinued. Recent echocardiogram does show mild aortic stenosis with diastolic dysfunction and golden vated pulmonary artery pressures, making therapeutic window of volume status more difficult. 2. Acute on chronic HFpEF/CKD stage IV Complicated by patient's renal function. Patient was placed on a Lasix drip. Nephrology has been consulted. Patient does have a fistula, but is not clear on whether this is functional at this time. Patient did have a hemodialysis line placed yesterday and was able to tolerate an episode of dialysis with no volume removal. 3. Hyperphosphatemia/secondary hyperparathyroidism/diabetes mellitus type 2/anemia of chronic disease/history of complete heart block Complicates care, management, recovery and prognosis. Likely okay to initiate tube feeds. Agree with holding baseline diabetic medications and using sliding scale. Blood sugars have been doing well. TIME: 32 minutes critical care time spent addressing patient's acute hypoxic respiratory failure, CHF, CKD stage IV, review of all data and collaboration with care team Subjective Subjective Patient did well overnight. No acute issues were reported. Patient did have hemodialysis yesterday and was ran even, tolerating it well. Patient denied any pain this morning. Patient did have a mild fever overnight, but no hemodynamic instability was reported. Objective Data Objective Data Vital Signs: Vital Signs Temp Pulse Resp BP Pulse Ox O2 Del Method O2 Flow Rate 38.1 C H 95 18 150/69 H 95 Nasal Cannula 2 03/16/23 04:00 06/25/22 07:15 06/25/22 07:15 06/25/22 06:00 06/25/22 07:22 06/25/22 07:22 06/25/22 07:22 FiO2 30 06/25/22 06:27 Oxygen Flow Rate (L/min) 2 Oxygen Delivery Method Nasal Cannula Weight: 99.79 kg Body Mass Index (BMI) 33.3 Intake & Output: Intake and Output for Last 24 Hours 06/23/22 06/24/22 06/25/22 23:59 23:59 23:59 Intake Total 152.35 / 257.55 417.09 / 417.09 84.60 / 84.60 Output Total 1000 / 1000 1150 / 1210 270 / 270 Balance -847.65 / -742.45 -732.91 / -792.91 -185.40 / -185.40 Lab / Micro Data Attestation: I reviewed the patient's lab results. Result Diagrams: 06/25/22 03:10 06/25/22 03:10 Labs: Laboratory Results - last 24 hr 06/24/22 05:55: POC Glucose 160 H 06/24/22 13:06: POC Glucose 185 H 06/24/22 17:11: POC Glucose 144 H 06/24/22 21:43: POC Glucose 117 H 06/25/22 00:06: POC Glucose 106 06/25/22 03:10: WBC 9.5, RBC 3.60 L, Hgb 9.0 L, Hct 28.5 L, MCV 79.2 L, MCH 25.0 L, MCHC 31.6 L, RDW Std Deviation 43.8, RDW Coeff of Yanley 15.3 H, Plt Count 197, MPV 12.5 H, Immature Gran % (Auto) 0.300, Neut % (Auto) 77.1 H, Lymph % (Auto) 11.0 L, [place] % (Auto) 10.1 H, Eos % (Auto) 1.3, Baso % (Auto) 0.2, Absolute Neuts (auto) 7.3, Absolute Lymphs (auto) 1.04, Nucleated RBC % 0 06/25/22 03:10: Sodium 141, Potassium 4.6, Chloride 105, Carbon Dioxide 24.0, Anion Gap 12, BUN 77 H, Creatinine 5.03 H, Estim Creat Clear Calc 12.28, Est GFR (MDRD) Af Amer 15 L, Est GFR (MDRD) Non-Af 12 L, BUN/Creatinine Ratio 15.3, Glucose 125 H, Calcium 6.4 L*, Phosphorus 6.8 H, Magnesium 1.9 Micro: Microbiology 06/23/22 09:22 Sputum, Induced/Lukens Gram Stain - Final 06/23/22 09:22 Sputum, Induced/Lukens Respiratory Culture - Preliminary Appears to be normal respiratory maxine. Further studies to follow. 06/23/22 06:00 Nasal Secretion SARS-CoV-2 & FLU Antigen (Rapid) - Final Influenzae A ABG Data ABG results: ABG 06/25/22 05:56 Specimen Type ART Sample Site L Radial pH 7.45 Bicarbonate Actual 21.1 L Total CO2 22 Base Excess -3 L O2 Saturation 95 O2 % 30 ABG pCO2 30.1 L ABG pO2 72 L Hans Test N/A O2 Delivery Device Adult Vent Vent Mode CPAP/PS POC PEEP 5 POC Pressure Suppt 5 Attestation: I personally reviewed and interpreted this ABG as follows: (Partially compensated metabolic acidosis with increased AA gradient) Radiography Diagnostic Testing: Radiology Impression Chest X-Ray 06/24/22 12:50 IMPRESSION: Support lines and tubes as described, no complications No acute pulmonary process Electronically Signed: Saurabh Horowitz MD at 13:16 EDT Reading Location ID and State: [address] [place] [address] , Service support , Physical Exam Const no apparent distress and well nourished Constitutional Narrative: Intubated. RASS 0. Evaluated during spontaneous breathing trial General Appearance: patient mechanically ventilated HEENT normocephalic and head/scalp atraumatic Eyes conjunctivae normal and no scleral icterus Neck no lymphadenopathy, supple and No no JVD Chest Chest Narrative: Tunneled left hemodialysis catheter is clean, dry and intact Resp no retractions and no use of accessory muscles Resp Narrative: Good ventilator synchrony Auscultation: diminished lung sounds; Negative for rales, rhonchi or wheezes Cardio regular rate, S1 normal heart sound, S2 normal heart sound, no rub, no gallops and no clicks Cardio Narrative: V paced rhythm Heart Sounds: murmur systolic II/ soft early right sternal border GI normal to inspection, nondistended, normoactive bowel sounds and soft to palpation Extremity no clubbing, cyanosis or edema Skin no rashes or lesions noted, no wounds, skin turgor normal, no jaundice, no petechiae and no mottling Skin Narrative: Right forearm fistula with palpable thrill and auditory bruit Neuro moves all extremities and no focal motor deficits Psych Mood & Affect: flat affect Charges/Coding Procedures Hospitalists Procedures: 92251 Critial Care 1st Hr
[2022-06-25 08:01] LABS: Bedside Glucose 133 mg/dL (74-106)
[2022-06-25] MEDS: Heparin Injection (Vial) 5,000 UNIT/ML VIAL 5000 UNIT SC ×2 (08:06→21:54)
--- NOTE | 2022-06-25 10:03 | PN.RENAL_ITS ---
Subjective Subjective Awake, alert and oriented. Extubated. Resting quietly in bed. No complaints. Objective Data Objective Data Vital Signs: Vital Signs Temp Pulse Resp BP Pulse Ox O2 Del Method O2 Flow Rate 99.8 F H 94 26 H 159/67 H 98 Nasal Cannula 2 06/25/22 09:00 06/25/22 09:00 06/25/22 09:00 06/25/22 09:00 06/25/22 09:00 06/25/22 09:00 06/25/22 09:00 FiO2 30 06/25/22 06:27 Oxygen Flow Rate (L/min) 2 Oxygen Delivery Method Nasal Cannula Weight: 99.79 kg Body Mass Index (BMI) 33.3 Intake & Output: Intake and Output for Last 24 Hours 06/23/22 06/24/22 06/25/22 23:59 23:59 23:59 Intake Total 152.35 / 257.55 417.09 / 417.09 102.53 / 102.53 Output Total 1000 / 1000 1150 / 1210 270 / 270 Balance -847.65 / -742.45 -732.91 / -792.91 -167.47 / -167.47 Lab / Micro Data Result Diagrams: 06/25/22 03:10 06/25/22 03:10 Labs: Laboratory Results - last 24 hr 06/24/22 05:55: POC Glucose 160 H 06/24/22 13:06: POC Glucose 185 H 06/24/22 17:11: POC Glucose 144 H 06/24/22 21:43: POC Glucose 117 H 06/25/22 00:06: POC Glucose 106 06/25/22 03:10: WBC 9.5, RBC 3.60 L, Hgb 9.0 L, Hct 28.5 L, MCV 79.2 L, MCH 25.0 L, MCHC 31.6 L, RDW Std Deviation 43.8, RDW Coeff of Yanely 15.3 H, Plt Count 197, MPV 12.5 H, Immature Gran % (Auto) 0.300, Neut % (Auto) 77.1 H, Lymph % (Auto) 11.0 L, [place] % (Auto) 10.1 H, Eos % (Auto) 1.3, Baso % (Auto) 0.2, Absolute Neuts (auto) 7.3, Absolute Lymphs (auto) 1.04, Nucleated RBC % 0 06/25/22 03:10: Sodium 141, Potassium 4.6, Chloride 105, Carbon Dioxide 24.0, Anion Gap 12, BUN 77 H, Creatinine 5.03 H, Estim Creat Clear Calc 12.28, Est GFR (MDRD) Af Amer 15 L, Est GFR (MDRD) Non-Af 12 L, BUN/Creatinine Ratio 15.3, Glucose 125 H, Calcium 6.4 L*, Phosphorus 6.8 H, Magnesium 1.9 06/25/22 07:41: POC Glucose 133 H Micro: Microbiology 06/23/22 09:22 Sputum, Induced/Lukens Gram Stain - Final 06/23/22 09:22 Sputum, Induced/Lukens Respiratory Culture - Final 06/23/22 06:00 Nasal Secretion SARS-CoV-2 & FLU Antigen (Rapid) - Final Influenzae A ABG Data ABG results: ABG 06/25/22 05:56 Specimen Type ART Sample Site L Radial pH 7.45 Bicarbonate Actual 21.1 L Total CO2 22 Base Excess -3 L O2 Saturation 95 O2 % 30 ABG pCO2 30.1 L ABG pO2 72 L Hans Test N/A O2 Delivery Device Adult Vent Vent Mode CPAP/PS POC PEEP 5 POC Pressure Suppt 5 Radiography Diagnostic Testing: Radiology Impression Chest X-Ray 06/24/22 12:50 IMPRESSION: Support lines and tubes as described, no complications No acute pulmonary process Electronically Signed: Saurabh Horowitz MD at 13:16 EDT Reading Location ID and State: [address] [place] [address] , Service support , Physical Exam Narrative Alert and oriented x3, resting quietly, no apparent distress Lung sounds clear anteriorly, no rhonchi, diminished breath sounds posterior bases S1, S2, RRR Abdomen soft, rounded, positive bowel sounds No pitting edema noted bilateral lower legs or feet. 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 He was treated with plasma exchange without much improvement. Although renal function is not much different than his prior admission in April 2022, it will be difficult for the patient to handle volume and tolerate medications that would help to keep him euvolemic. Patient was noted to have mild uremic symptoms prior to admission 1st dialysis 06/24 via tunneled HD catheter with no UF, plan for dialysis again today 200bfr, 400dfr over 2.5hours with ~1L UF as pt/bp tolerates Unfortunately, right forearm AV fistula was just placed on 05/18/2022 and is not yet ready to be used. - Chronic immunosuppression for kidney transplantation on tacrolimus 2 mg every morning and 1 mg every afternoon and prednisone 5 mg once per day. Given presence of influenza A infection, we are holding mycophenolate for now. Once dialysis starts, we will discuss immunosuppression weaning with transplant team in [place]. I suspect they would want the patient on prednisone for indefinitely and tacrolimus for a while given recurrence of FSGS in the transplanted kidney. - Acute hypoxic respiratory failure likely due to influenza and volume overload. Extubated. We will attempt fluid removal today with dialysis. Will stop Lasix drip and switch to intermittent IV Lasix. -metabolic acidosis from CKD; will stop oral bicarb. patient does not need this on discharge as bicarb bath can be adjusted during dialysis. - history of anemia of chronic disease; patient follows with heme outpatient for JOSE injections. Patient tells me today that he is due for jose injection today. Hgb 9.0g/dL today. Will give JOSE with HD today. I also reviewed with patient that he will receive JOSE and iron at kidney center and will no longer be receiving JOSE per heme. -discharge planning in progress. Outpatient HD at [facility] getting arranged.
[2022-06-25] MEDS: Aspirin 81 MG TAB.CHEW GT (11:39)
[2022-06-25] MEDS: predniSONE 5 MG Tablet GT (11:40)
[2022-06-25] MEDS: Tacrolimus Anhydrous 1 MG Capsule 2 MG GT (11:40)
[2022-06-25 12:45] LABS: Bedside Glucose 130 mg/dL (74-106)
--- NOTE | 2022-06-25 14:40 | PN.HOSP_ITS ---
Reason for Visit Reason for Visit: Shortness of breath Subjective Subjective Patient admitted this morning to 2 L nasal cannula and currently being weaned to room air. Voice is soft. Affect is flat the patient denies any issues at this time other than swelling in his hands. Plan is for dialysis with at least 1 L fluid removal later today per discussion with nephrology [employer]. Objective Data Objective Data Vital Signs: Vital Signs Temp Pulse Resp BP Pulse Ox O2 Del Method O2 Flow Rate 99.8 F H 101 H 18 143/61 H 97 Room Air 2 06/25/22 14:00 06/25/22 14:00 06/25/22 14:00 06/25/22 14:00 06/25/22 14:00 06/25/22 14:00 06/25/22 13:00 FiO2 30 06/25/22 06:27 Oxygen Flow Rate (L/min) 2 Oxygen Delivery Method Room Air Weight: 99.79 kg Body Mass Index (BMI) 33.3 Intake & Output: Intake and Output for Last 24 Hours 06/23/22 06/24/22 06/25/22 23:59 23:59 23:59 Intake Total 152.35 / 257.55 417.09 / 417.09 105.51 / 105.51 Output Total 1000 / 1000 1150 / 1210 420 / 420 Balance -847.65 / -742.45 -732.91 / -792.91 -314.49 / -314.49 Lab / Micro Data Result Diagrams: 06/25/22 03:10 06/25/22 03:10 Labs: Laboratory Results - last 24 hr 06/24/22 05:55: POC Glucose 160 H 06/24/22 17:11: POC Glucose 144 H 06/24/22 21:43: POC Glucose 117 H 06/25/22 00:06: POC Glucose 106 06/25/22 03:10: WBC 9.5, RBC 3.60 L, Hgb 9.0 L, Hct 28.5 L, MCV 79.2 L, MCH 25.0 L, MCHC 31.6 L, RDW Std Deviation 43.8, RDW Coeff of Yanely 15.3 H, Plt Count 197, MPV 12.5 H, Immature Gran % (Auto) 0.300, Neut % (Auto) 77.1 H, Lymph % (Auto) 11.0 L, Todd % (Auto) 10.1 H, Eos % (Auto) 1.3, Baso % (Auto) 0.2, Absolute Neuts (auto) 7.3, Absolute Lymphs (auto) 1.04, Nucleated RBC % 0 06/25/22 03:10: Sodium 141, Potassium 4.6, Chloride 105, Carbon Dioxide 24.0, Anion Gap 12, BUN 77 H, Creatinine 5.03 H, Estim Creat Clear Calc 12.28, Est GFR (MDRD) Af Amer 15 L, Est GFR (MDRD) Non-Af 12 L, BUN/Creatinine Ratio 15.3, Glucose 125 H, Calcium 6.4 L*, Phosphorus 6.8 H, Magnesium 1.9 06/25/22 07:41: POC Glucose 133 H 06/25/22 12:24: POC Glucose 130 H Micro: Microbiology 06/23/22 09:22 Sputum, Induced/Lukens Gram Stain - Final 06/23/22 09:22 Sputum, Induced/Lukens Respiratory Culture - Final 06/23/22 06:00 Nasal Secretion SARS-CoV-2 & FLU Antigen (Rapid) - Final Influenzae A ABG Data ABG results: ABG 06/25/22 05:56 Specimen Type ART Sample Site L Radial pH 7.45 Bicarbonate Actual 21.1 L Total CO2 22 Base Excess -3 L O2 Saturation 95 O2 % 30 ABG pCO2 30.1 L ABG pO2 72 L Hans Test N/A O2 Delivery Device Adult Vent Vent Mode CPAP/PS POC PEEP 5 POC Pressure Suppt 5 Physical Exam Const alert, oriented x3, no apparent distress and well nourished Constitutional Narrative: Obese, older, [place] male, sitting up in bed, extubated and on 2 L nasal cannula, appears comfortable at this time, nontoxic HEENT normocephalic, head/scalp atraumatic and moist oral mucous membranes HEENT Narrative: Mallampati 3, no thrush Head and Scalp: normocephalic Resp normal respiratory effort, no retractions, no use of accessory muscles and clear to auscultation bilaterally Resp Narrative: Diminished bilateral bases but otherwise clear Auscultation: Negative for rales, rhonchi or wheezes Cardio regular rate, S1 normal heart sound, S2 normal heart sound, no rub, no gallops and no clicks; Negative for regular rhythm or no murmurs Cardio Narrative: V paced rhythm, 2 out of 6 systolic murmur loudest at right upper sternal border GI normal to inspection, nondistended, normoactive bowel sounds, soft to palpation and non-tender Extremity Extremity Narrative: 2+ pedal pulses, trace bilateral lower extremity edema, pitting 1+ upper extremity edema distally right slightly greater than left Skin Skin Narrative: Right forearm fistula with palpable thrill Neuro oriented x3, CN's II-XII intact bilaterally, moves all extremities and no focal motor deficits Neuro Narrative: Speech is clear but soft Psych Psych Narrative: Affect is flat Mood & Affect: depressed Assessment & Plan Assessment/Plan (1) Acute exacerbation of CHF (congestive heart failure): (2) Influenza A: (3) Acute respiratory failure with hypoxia: (4) Leukocytosis: (5) Hypomagnesemia: PLAN: Plan Acute hypoxic respiratory failure secondary to decompensated HFpEF/influenza A -Per patient has been noncompliant with fluid and salt intake -Intubated in the emergency department on 06/23/2022 -Extubated a.m. 06/25/2022 -Continue dialysis per nephrology--> plan is for at least 1 L fluid removal today -As needed albuterol -Check a.m. chest x-ray for resolution of volume overload -Pulmonary medicine/critical care following appreciate input Acute exacerbation of HFpEF -Resolved -related to volume overload with renal dysfunction -HD per nephrology once tunneled dialysis catheter in place -Daily weights -Echocardiogram done on 05/07/2022 shows an EF of 65% with mild aortic stenosis stage II diastolic dysfunction and a right ventricular systolic pressure at 38 mmHg Influenza A infection -Unclear as to how much this is contributing to his respiratory distress -Initiation of infection is unclear as well as patient has had shortness of breath for 2 weeks -Supportive care -Check a.m. chest x-ray Hypocalcemia -When corrected for albumin calcium level is within normal limits -No supplementation required Hyperphosphatemia -Related to renal failure -Continue phosphate binders Secondary hyperparathyroidism related to renal disease -Management per nephrology CKD stage IV -Patient with history of renal transplant 3 years ago with transplant failure -Continue home prednisone -Home bicarbonate discontinued by nephrology now on dialysis -Continue home tacrolimus -Tunneled dialysis catheter placed left on 06/24/2022 -HD per nephrology -Stop home CellCept at discharge -Nephrology following-appreciate input-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 blood sugars 185 -Add Lantus 10 units at at bedtime -May need basal insulin but will monitor for needs -Sliding scale -Accu-Cheks every 6 hours -N.p.o. for now Hypomagnesemia -Mag bolus given -Repeat lab in a.m. Chronic anemia secondary to renal disease -Hemoglobin is stable and at baseline -EPO per nephrology -Repeat CBC in a.m. -Patient does follow as an outpatient with hematology History of complete heart block -Patient has permanent pacemaker placed on 03/11/2021 -Pacing is ventricular Anxiety -Hold home lorazepam DVT prophylaxis -Continue subcu heparin CODE STATUS -Full code Disposition: -Patient may be ready for discharge as early tomorrow depending on discussion with nephrology. We will see how he does with therapy services. If he does well he may be able to go home with home health versus needing ongoing rehab for which pre-CERT will need to be obtained. Charges/Coding Visit Charges Inpatient E&M: 27354 Subs Hosp L2
[2022-06-25] MEDS: Epoetin Alfa epbx 10,000 UNITS/ML 20000 UNIT IV (15:20)
--- NOTE | 2022-06-25 15:32 | CASEMGMT ---
NORMA CM into pt room, pt receiving dialysis. Discussed dialysis set up with pt, pt chose [facility]. Also discussed HHC with patient, currently he states he is not interested in HHC. Therapy has not eval'd at this time. Pt is agreeable to seeing how he does with therapy prior to deciding if he wants HHC. TC to pt , Milena, she is interested in a // schedule for dialysis. She is requesting HHC through [facility]. Referral sent to [facility] via the portal at this time.
[2022-06-25 18:15] LABS: Bedside Glucose 152 mg/dL (74-106)
--- NOTE | 2022-06-25 18:20 | DIALYSIS ---
Hemodialysis complete with 1 liter fluid removed. Left chest dialysis CVC dressing is clean and dry, both lumens patent. Right forearm AV fistula positive for thril and bruit. Pt tolerated treatment without difficulty.
[2022-06-25] MEDS: Heparin 10,000 UNITS/10 ML Vial 3800 UNITS IV (18:28)
[2022-06-25] MEDS: Furosemide 40 MG/4 ML Vial IV (18:28)
[2022-06-25] MEDS: Tacrolimus Anhydrous 1 MG Capsule GT (21:54)
[2022-06-25] MEDS: Atorvastatin Calcium 40 MG Tablet GT (21:54)
[2022-06-25] MEDS: Insulin Glargine-YFGN 100 UNIT/ML Pen 10 UNIT SC (22:24)
[2022-06-26] MEDS: Insulin Lispro 100 UNIT/ML INSULN.PEN SC ×3 (00:55→11:14)
[2022-06-26 00:56] VITALS: BP 123/65; PULSE 94; RESP 18; TEMP 37.2; O2SAT 94
[2022-06-26 01:36] LABS: Bedside Glucose 162 mg/dL (74-106)
[2022-06-26 01:36] LABS: Bedside Glucose 224 mg/dL (74-106)
[2022-06-26 04:59] VITALS: BP 124/59; PULSE 88; RESP 18; TEMP 37.2; O2SAT 93
[2022-06-26] MEDS: Heparin Injection (Vial) 5,000 UNIT/ML VIAL 5000 UNIT SC (05:04)
--- NOTE | 2022-06-26 05:55 | RAD_ITS ---
EXAM: XR CHEST, 1 VIEW CLINICAL INDICATION: Follow-up infiltrates TECHNIQUE: Frontal view of the chest. This report was created using [employer] report generation technology. COMPARISON: XR Chest dated 06/24/2022 FINDINGS: LUNGS AND PLEURAL SPACES: Normal. No consolidation or edema. No pneumothorax. No effusion. HEART: Normal heart size. MEDIASTINUM: No mediastinal or hilar mass. BONES/JOINTS: No acute abnormality. TUBES, LINES AND DEVICES: Interval removal of the endotracheal and endogastric tubes. Cardiac pacemaker wires and left IJ dialysis catheter remain in place. RAD/Chest 1 View (Portable) IMPRESSION: Interval extubation. No acute cardiopulmonary abnormality. Electronically Signed: Greg Valles MD at 8:29 EDT ,
[2022-06-26 06:00] VITALS: BMI 32.9
[2022-06-26 06:50] LABS: Absolute Lymphocyte Count 0.95 X10^3/uL (0.83-4.51); Absolute Neutrophil Count 5.5 X10^3/uL (2.0-7.7); Basophil# 0.02 X10^3/uL; Basophil% 0.3 % (0-1); Eosinophil# 0.23 X10^3/uL; Hemoglobin 8.7 g/dL (13.0-16.5); Lymphocyte # 0.95 X10^3/ul (0.83-4.51); Lymphocyte % 12.2 % (19-41); Mean Corpuscular Hgb 24.3 pg (27.0-32.0); Mean Platelet Vol. 12.4 fl (6.2-12.0); Monocyte# 1.07 X10^3/uL; Monocyte% 13.7 % (0-10); NRBC Flagged by Analyzer 0 % (0-5); Neutrophil # 5.47 X10^3/uL (2.7-7.7); Neutrophil % 70.2 % (47-70); Platelet Count 191 K/mm3 (150-450); RBC Distribution Width CV 15.2 % (11.6-14.6); Red Blood Count 3.58 M/mm3 (4.6-6.2); White Blood Count 7.8 K/mm3 (4.4-11.0)
[2022-06-26 06:55] LABS: Bedside Glucose 166 mg/dL (74-106)
[2022-06-26 07:19] VITALS: O2SAT 92
[2022-06-26 07:19] LABS: Anion Gap 15 (5-15); BUN 61 mg/dL (7-18); Calcium,Total 6.6 mg/dL (8.5-10.1); Chloride 103 mmol/L (98-107); Creatinine, Serum 4.68 mg/dL (0.70-1.30); EST Glomerular Filtration Rate 13 mL/min (>60); Est Glom Filt Rate - Afr Amer 16 mL/min (>60); Estimated Creatinine Clearance 13.19 ml/min; Glucose 177 mg/dL (74-106); Potassium 3.4 mmol/L (3.5-5.1); Sodium Level 142 mmol/L (136-145)
[2022-06-26 09:57] VITALS: BP 113/48; PULSE 86; RESP 16; TEMP 37.1; O2SAT 94
[2022-06-26] MEDS: Potassium Chloride Oral Tablet 20 MEQ PO (10:18)
[2022-06-26] MEDS: Tacrolimus Anhydrous 1 MG Capsule 2 MG PO (10:20)
[2022-06-26] MEDS: Aspirin 81 MG TAB.CHEW PO (10:20)
[2022-06-26] MEDS: predniSONE 5 MG Tablet PO (10:20)
--- NOTE | 2022-06-26 10:20 | PN.RENAL_ITS ---
Subjective Subjective Patient is sitting in chair. Denies any complaints. Reports he tolerated dialysis yesterday without any cramping. Hopeful to go home today. Objective Data Objective Data Vital Signs: Vital Signs Temp Pulse Resp BP Pulse Ox O2 Del Method O2 Flow Rate 98.8 F 86 16 113/48 L 94 Room Air 2 06/26/22 09:57 06/26/22 09:57 06/26/22 09:57 06/26/22 09:57 06/26/22 09:57 06/26/22 09:57 06/25/22 13:00 FiO2 30 06/25/22 06:27 Oxygen Flow Rate (L/min) 2 Oxygen Delivery Method Room Air Weight: 98.6 kg Body Mass Index (BMI) 32.9 Intake & Output: Intake and Output for Last 24 Hours 06/24/22 06/25/22 06/26/22 23:59 23:59 23:59 Intake Total 417.09 / 417.09 105.51 / 225.51 180 / 180 Output Total 1150 / 1210 1720 / 1920 325 / 325 Balance -732.91 / -792.91 -1614.49 / -1694.49 -145 / -145 Lab / Micro Data Result Diagrams: 06/26/22 06:30 06/26/22 06:30 Labs: Laboratory Results - last 24 hr 06/25/22 12:24: POC Glucose 130 H 06/25/22 17:51: POC Glucose 152 H 06/25/22 21:51: POC Glucose 224 H 06/26/22 00:53: POC Glucose 162 H 06/26/22 06:30: WBC 7.8, RBC 3.58 L, Hgb 8.7 L, Hct 29.0 L, MCV 81.0, MCH 24.3 L , MCHC 30.0 L D, RDW Std Deviation 44.0 H, RDW Coeff of Yanely 15.2 H, Plt Count 191, MPV 12.4 H, Immature Gran % (Auto) 0.600, Neut % (Auto) 70.2 H, Lymph % (A uto) 12.2 L, [place] % (Auto) 13.7 H, Eos % (Auto) 3.0, Baso % (Auto) 0.3, Absolute Neuts (auto) 5.5, Absolute Lymphs (auto) 0.95, Nucleated RBC % 0 06/26/22 06:30: Sodium 142, Potassium 3.4 L, Chloride 103, Carbon Dioxide 24.0, Anion Gap 15, BUN 61 H, Creatinine 4.68 H, Estim Creat Clear Calc 13.19, Est GFR (MDRD) Af Amer 16 L, Est GFR (MDRD) Non-Af 13 L, BUN/Creatinine Ratio 13.0, Glucose 177 H, Calcium 6.6 L 06/26/22 06:32: POC Glucose 166 H Micro: Microbiology 06/23/22 09:22 Sputum, Induced/Lukens Gram Stain - Final 06/23/22 09:22 Sputum, Induced/Lukens Respiratory Culture - Final 06/23/22 06:00 Nasal Secretion SARS-CoV-2 & FLU Antigen (Rapid) - Final Influenzae A Radiography Diagnostic Testing: Radiology Impression Chest X-Ray 06/26/22 05:55 IMPRESSION: Interval extubation. No acute cardiopulmonary abnormality. Electronically Signed: Greg Valles MD at 8:29 EDT , Physical Exam Narrative Alert and oriented x3, sitting in chair Lung sounds clear S1, S2, RRR Abdomen soft, rounded, positive bowel sounds No pitting edema noted bilateral lower legs or feet. 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 The patient has chronic allograft nephropathy and plan has been made to restart hemodialysis. The patient had AV fistula placed by Dr. Sorto on 05/18/2022. The patient is admitted to the hospital on 06/23/2022 with acute hypoxic respiratory failure thought to be secondary to influenza A infection along with pulmonary edema. Nephrology is following for management of kidney transplantation in the setting of failing allograft. - ESRD secondary to FSGS status post living related donor kidney transplantation with failing renal allograft. 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 He was treated with plasma exchange without much improvement. Although renal function is not much different than his prior admission in April 2022, it will be difficult for the patient to handle volume and tolerate medications that would help to keep him euvolemic and moreover, there were already subtle signs of uremia per discussion with the patient's primary stone unloader and patient's Unfortunately, right forearm AV fistula was just placed on 05/18/2022 and is not yet ready to be used. First dialysis 06/24 with no UF. Patient tolerated dialysis again yesterday with 1 L fluid removal. 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 Outpatient dialysis schedule will be Wednesday. Reviewed this with patient. Next dialysis will be tomorrow with fluid removal. Continue continue torsemide 40 mg daily at home. Patient will receive Iron and BOLIVAR at dialysis. Reviewed this with patient. Patient received BOLIVAR with HD yesterday. - Chronic immunosuppression for kidney transplantation. The patient is on tacrolimus 2 mg every morning and 1 mg every afternoon and prednisone 5 mg once per day. Given presence of influenza A infection, we are holding mycophenolate for now. we will discuss immunosuppression weaning with transplant team in [place]. Suspect they would want the patient on prednisone indefinitely and tacrolimus for a while given recurrence of FSGS in the transplanted kidney. Metabolic acidosis from CKD. Can continue off oral sodium bicarbonate at discharge - Acute hypoxic respiratory failure. Likely due to influenza and volume overload. Improving - Disposition; possible discharge to home today. Outpatient dialysis schedule arranged at [facility] Wednesday schedule. Next dialysis tomorrow. Discussed with discharge planning team, patient and Dr. Mix
[2022-06-26] MEDS: Furosemide 40 MG/4 ML Vial IV (10:21)
--- NOTE | 2022-06-26 11:22 | DS.PCM_ITS ---
Providers Date of Admission: 06/23/22 Date of Discharge: 06/26/22 Primary Care Physician: Dr. Sy Sharma MD Consultations 06/23/22 08:52 Consult: Nephrology Routine Consulting Provider: Tristin Diop Reason for Consult: CKD/volume overload EMERGENT Consult: No Notified: Yes Date Notified: 06/23/22 Time Notified: 08:11 Method of Notification: Verbal 06/23/22 12:24 Consult: General Surgery Routine Consulting Provider: Raisa Judge Reason for Consult: Tunneled HD line EMERGENT Consult: No Notified: Yes Date Notified: 06/23/22 Time Notified: 12:24 Method of Notification: Verbal Reason For Visit: ACUTE HYPOXIC RESPIRATORY FAILURE Diagnosis Discharge Diagnosis (1) CKD (chronic kidney disease) stage 5, GFR less than 15 ml/min: Status: Chronic Code(s): N18.5 - Chronic kidney disease, stage 5 (2) Acute respiratory failure with hypoxia: Status: Acute Code(s): J96.01 - Acute respiratory failure with hypoxia (3) Influenza A: Status: Acute Code(s): J10.1 - Influenza due to other identified influenza virus with other respiratory manifestations Medications at Discharge Home Medications atorvastatin 40 mg tablet 40 mg PO QHS CHOLESTEROL 06/23/17 dulaglutide 1.5 mg/0.5 mL subcutaneous pen injector 1.5 mg SQ REYNA DIABETES 06/23/17 ferrous sulfate 325 mg (65 mg iron) tablet 325 mg PO DAILY supplement 10/24/18 aspirin 81 mg chewable tablet 81 mg PO DAILY heart health 10/02/20 glimepiride 4 mg tablet 4 mg PO DAILY diabetes 10/02/20 prednisone 5 mg tablet 5 mg PO DAILY steroid 10/02/20 tacrolimus 0.5 mg capsule, immediate-release 2 mg PO DAILY immunosuppresive 10/02/20 nifedipine 60 mg tablet,extended release 24 hr (Procardia XL) 60 mg PO DAILY blood pressure 03/11/21 tacrolimus 1 mg capsule, immediate-release 1 mg PO QHS immunosuppresive 03/11/21 lisinopril 5 mg tablet (Zestril) 5 mg PO BID #180 tabs 03/12/21 lorazepam 1 mg tablet (Ativan) 1 mg PO TID PRN anxiety #10 tabs 01/27/22 torsemide 40 mg tablet 40 mg PO DAILY #30 tabs 05/09/22 Hospital Course Procedures Central line placement (Left IJ tunneled dialysis catheter), Dialysis, EKG, Intubation and - (Chest x-ray) Summary of Care Provided Minutes Spent on Discharge: 38 Hospital Course: POLINA GANDARA, is a 77 M who presented to the emergency department [facility] early on the morning of 06/23/2022 with shortness of breath.? History was obtained from his as he was intubated and sedated and given paralytics.? Patient had known history of end-stage renal disease with previous renal transplant 3 years ago.? Kidney was donated by his daughter.? Patient recently had traveled to [place] approximately 2 weeks prior to presentation and per his he had worsening shortness of breath since that time.? He has a chronic cough that worsened the night prior to presentation.? She denied him having any fever or chills.? As noted above he is having increasing shortness of breath over the last 2 weeks but his work of breathing peaked early this morning and he was apparently in respiratory distress and the EMS was called.? Upon EMS arrival he was awake and alert but in distress with oxygen saturation in the low 80s on room air.? He does not require supplemental oxygen at baseline.? His reported he has been noncompliant with his diet and fluid intake.? She stated that she has found multiple bottles of Gatorade and water around the house as well as Ramen noodle packages that he had made and eaten.? He has a known history of noncompliance both with diet and medication.? He had a recent right upper extremity fistula placement done by Dr. Sorto about 5 weeks ago and did not want to initiate any dialysis until this matured as he was afraid of line infection.? He had been encouraged prior to this point to start dialysis by his driver engineer. Vital signs on presentation demonstrated temperature 96.5, heart rate 128, blood pressure 167/90, respiratory rate was 38 and oxygen saturation was 79% on BiPAP.? He was emergently intubated and oxygen saturations following intubation were 100% on 100% of FiO2.? His CBC shows a leukocytosis with a white count of 15.9 having a monophasic predominance at 11.5%.? He has no left shift.? He has a chronic anemia which is stable and his platelets were normal.? Chemistry panel showed normal potassium and elevated chloride at 110 with a serum bicarb of 16.? His BUN was 99 and his serum creatinine was 5.36 (close to his current baseline), serum glucose was 276, calcium was 6.2 however when corrected was 9.8, phosphorus was 5.1, magnesium was 1.6.? A CK was obtained and found to be 404.? Procalcitonin was 0.23 and his free T4 was 0.81.? Chest x-ray shows bilateral worsening volume overload.? EKG shows a paced rhythm with a chronic bundle branch block secondary to ventricular pacing but no ST-T wave changes concerning for ischemia. Upon evaluation it was felt that his respiratory failure was predominantly related to his volume overload and probably exacerbated by his influenza infection. Tamiflu was deferred as the onset of his symptoms was not exactly known. He was admitted to the ICU and placed on a Lasix drip. He diuresed about a liter and a half and a tunneled dialysis catheter was placed on 06/24/[address] Thai ford. Dialysis was initiated that evening and then repeated again on the . He was able to be extubated on 06/25/2022. Infectious work-up was pursued but other than influenza was unremarkable. He was asked to do to room air. Repeat chest x-ray was performed and showed considerable improvement in his volume status. He was transferred to PCU on 06/25/2022 and was able to independent only ambulate around the unit when evaluated on the . Case management was able to secure him dialysis seat at a local dialysis unit on Wednesday, , and Saturdays at 5:45 AM. He is to be there at 520. His first outpatient session will be tomorrow. He remained stable on room air even with exertion. His metolazone, mycophenolate, and sodium bicarb were all discontinued at discharge, and his Procardia was held. He is to restart his Procardia if his blood pressures systolic are greater than 140 on a consistent basis. He will continue his tacrolimus and prednisone at this time. No new prescriptions were initiated at this time. He is to follow-up with his primary care physician within the next 2 weeks. Nephrology as directed with dialysis tomorrow, and with general surgery when it is time to discontinue his tunneled dialysis catheter. He was discharged home in stable condition on 06/26/2022. Discharge diagnoses: Acute hypoxic respiratory failure-resolved Decompensated HFpEF-resolved Influenza A Hypokalemia -Resolved Hyperphosphatemia Secondary hyperparathyroidism secondary to renal disease End-stage renal disease Hypertension Hyperlipidemia DM-2 Hypomagnesemia-resolved Chronic anemia secondary to renal disease History of complete heart block status post pacemaker Anxiety Physical Exam Const alert, oriented x3, no apparent distress and well nourished Constitutional Narrative: Obese, older, Dutch male, sitting up on the edge of the bed talking on his cell phone, on room air, appears comfortable and nontoxic nontoxic General Appearance: cooperative, comfortable, well kempt and well developed Orientation / Consciousness: awake, oriented to person, oriented to place and oriented to time Exam Limitations: no limitations Nutritional Appearance: obese HEENT normocephalic, head/scalp atraumatic, hearing grossly normal bilaterally and moist oral mucous membranes HEENT Narrative: Mallampati 3, no thrush Eyes PERRL, EOMs intact bilaterally and conjunctivae normal Eyes Narrative: No scleral icterus Neck no lymphadenopathy, supple and no JVD Neck Narrative: trachea midline, no thyroid enlargement, tunneled dialysis catheter is in the left IJ-dressing is in place and catheter is clean and dry Resp normal respiratory effort, no retractions, no use of accessory muscles and clear to auscultation bilaterally Resp Narrative: Few bilateral crackles at the very distal bases Auscultation: crackles; Negative for rhonchi or wheezes Cardio regular rate, S1 normal heart sound, S2 normal heart sound, no rub, no gallops and no clicks; Negative for regular rhythm or no murmurs Cardio Narrative: V paced rhythm, 2 out of 6 systolic murmur loudest at right upper sternal border GI normal to inspection, nondistended, normoactive bowel sounds, soft to palpation and non-tender Extremity no clubbing, cyanosis or edema Extremity Narrative: 2+ pedal pulses, right arm with AV fistula distally positive thrill and bruit Skin no rashes or lesions noted, no wounds, skin turgor normal, no jaundice, no petechiae and no mottling Skin Narrative: Tunneled dialysis catheter as above Neuro oriented x3, CN's II-XII intact bilaterally, moves all extremities and no focal motor deficits Neuro Narrative: Speech, patient is ambulating independently in the hallway Speech: speech normal Psych Psych Narrative: Affect is flat Mood & Affect: depressed Weight / BMI Weight Weight: 98.6 kg Body Mass Index (BMI) 32.9 ABG / Lab / Microbiology Data Result Diagrams: 06/26/22 06:30 06/26/22 06:30 Laboratory: Laboratory Results - last 24 hr 06/25/22 12:24: POC Glucose 130 H 06/25/22 17:51: POC Glucose 152 H 06/25/22 21:51: POC Glucose 224 H 06/26/22 00:53: POC Glucose 162 H 06/26/22 06:30: WBC 7.8, RBC 3.58 L, Hgb 8.7 L, Hct 29.0 L, MCV 81.0, MCH 24.3 L , MCHC 30.0 L D, RDW Std Deviation 44.0 H, RDW Coeff of Yanely 15.2 H, Plt Count 191, MPV 12.4 H, Immature Gran % (Auto) 0.600, Neut % (Auto) 70.2 H, Lymph % (Auto) 12.2 L, [place] % (Auto) 13.7 H, Eos % (Auto) 3.0, Baso % (Auto) 0.3, Absolute Neuts (auto) 5.5, Absolute Lymphs (auto) 0.95, Nucleated RBC % 0 06/26/22 06:30: Sodium 142, Potassium 3.4 L, Chloride 103, Carbon Dioxide 24.0, Anion Gap 15, BUN 61 H, Creatinine 4.68 H, Estim Creat Clear Calc 13.19, Est GFR (MDRD) Af Amer 16 L, Est GFR (MDRD) Non-Af 13 L, BUN/Creatinine Ratio 13.0, Glucose 177 H, Calcium 6.6 L 06/26/22 06:32: POC Glucose 166 H Microbiology: Microbiology 06/23/22 09:22 Sputum, Induced/Lukens Gram Stain - Final 06/23/22 09:22 Sputum, Induced/Lukens Respiratory Culture - Final 06/23/22 06:00 Nasal Secretion SARS-CoV-2 & FLU Antigen (Rapid) - Final Influenzae A Radiography Diagnostic Testing: Radiology Impression Chest X-Ray 06/26/22 05:55 IMPRESSION: Interval extubation. No acute cardiopulmonary abnormality. Electronically Signed: Greg Valles MD at 8:29 EDT , D/C Instructions Discharge Diet: Low fat / Low cholesterol, 1800 Calorie Control Diet, 8 Cup Fluid Restriction, 2000 mg Sodium Diet and Renal Diet Discharge Activity: Return to Normal Activity Meaningful Use Info Meaningful Use Diagnoses (Choose all that apply): None applicable Discharge Plan Admission Admit Date/Time: 06/23/22 07:36 Primary Reason for Your Visit: Shortness of breath Attending Provider: Anastasiya Mix Primary Care Provider: Sy Sharma Chi Consulting Providers: Raisa Judge ; Tristin Diop Instructions Additional Instructions / Restrictions: Dialysis has been set up for , , and Wednesday at 5:45 AM you will need to be there at 520 Discharge Orders/Prescriptions Prescriptions: Continued aspirin 81 mg tablet,chewable 81 mg PO DAILY glimepiride 4 mg tablet 4 mg PO DAILY prednisone 5 mg tablet 5 mg PO DAILY tacrolimus 0.5 mg capsule 2 mg PO DAILY atorvastatin 40 MG tablet 40 mg PO QHS dulaglutide 1.5 MG/0.5 ML pen injector 1.5 mg SQ REYNA Rx Instructions: takes on Wednesday ferrous sulfate 325 MG tablet 325 mg PO DAILY tacrolimus 1 mg Capsule 1 mg PO QHS lisinopril [Zestril] 5 mg tablet 5 mg PO BID Qty: 180 0RF lorazepam [Ativan] 1 mg tablet 1 mg PO TID PRN (Reason: anxiety) Qty: 10 0RF torsemide 40 mg tablet 40 mg PO DAILY Qty: 30 0RF Held nifedipine [Procardia XL] 60 mg Tablet Extended Release 24hr 60 mg PO DAILY Hold Instructions: CHECK home BP and if running > 140 SBP restart Discontinued sodium bicarbonate 650 mg tablet 650 mg PO BID mycophenolate mofetil [CellCept] 250 mg Capsule 250 mg PO BID metolazone 5 mg tablet 5 mg PO DAILY Qty: 30 0RF Rx Instructions: Take 1 daily for weight gain of over 3 pounds per day Referrals / Follow Up: Prabhjot Mancera MD [Med Staff - Consulting] - See Referral Note (as directed by Nephro) Sy Sharma Chi, MD [Primary Care Provider] - Within 2 Weeks Disposition Disposition (needs filled in before D/C Order can be placed): Home, Self Care Charges/Coding Visit Charges Inpatient E&M: 98762 Disch Hosp >30min
[2022-06-26 11:40] LABS: Bedside Glucose 222 mg/dL (74-106)
--- NOTE | 2022-06-26 12:03 | PHA.DC.MR ---
Pharmacy Service has performed discharge medication reconciliation for this patient. The patient's discharge medication list was reviewed for discrepancies and discrepancies were resolved. Home Medications atorvastatin 40 mg tablet 40 mg PO QHS CHOLESTEROL 06/23/17 dulaglutide 1.5 mg/0.5 mL subcutaneous pen injector 1.5 mg SQ REYNA DIABETES 06/23/17 ferrous sulfate 325 mg (65 mg iron) tablet 325 mg PO DAILY supplement 10/24/18 aspirin 81 mg chewable tablet 81 mg PO DAILY heart health 10/02/20 glimepiride 4 mg tablet 4 mg PO DAILY diabetes 10/02/20 prednisone 5 mg tablet 5 mg PO DAILY steroid 10/02/20 tacrolimus 0.5 mg capsule, immediate-release 2 mg PO DAILY immunosuppresive 10/02/20 nifedipine 60 mg tablet,extended release 24 hr (Procardia XL) 60 mg PO DAILY blood pressure 03/11/21 tacrolimus 1 mg capsule, immediate-release 1 mg PO QHS immunosuppresive 03/11/21 lisinopril 5 mg tablet (Zestril) 5 mg PO BID #180 tabs 03/12/21 lorazepam 1 mg tablet (Ativan) 1 mg PO TID PRN anxiety #10 tabs 01/27/22 torsemide 40 mg tablet 40 mg PO DAILY #30 tabs 05/09/22
[2022-06-26 12:06] VITALS: O2SAT 91; O2SAT 94
--- NOTE | 2022-06-26 12:29 | CASEMGMT ---
NORMA SANCHEZ called [facility] to find out chair time for patient. Patient is scheduled for HD at [facility] on TTS 0545 with 0525 arrival. NORMA SANCHEZ updated patient and called Milena regarding schedule. Patient was independent with therapy in the hallway and no therapy recommended at this time. Patient and had no further questions or concerns at this time.
== END 2022-06-26 13:53 | disposition home or self-care (01) | DRG 291 ==
LOC: ED 07:46 → ICU 07:54 → PCU 06-25 20:41
PROVIDERS: Internal Medicine Critical Care Medicine; Nurse Practitioner Adult Health; Surgery; Admitting Provider Internal Medicine; Emergency Provider Emergency Medicine; PCP Family Medicine Geriatric Medicine; Visit Provider Internal Medicine
PROC: 02HV33Z Insertion of Infusion Device into Superior Vena Cava, Percutaneous Approach (ICD-10-PCS; principal; 2022-06-24 14:30)
DX: I13.2 Hypertensive heart and chronic kidney disease with heart failure and with stage 5 chronic kidney disease, or end stage renal disease (principal); J96.01 Acute respiratory failure with hypoxia; N18.6 End stage renal disease; I50.33 Acute on chronic diastolic (congestive) heart failure; T86.12 Kidney transplant failure; D84.81 Immunodeficiency due to conditions classified elsewhere; N25.81 Secondary hyperparathyroidism of renal origin; D63.1 Anemia in chronic kidney disease; E83.39 Other disorders of phosphorus metabolism; I44.1 Atrioventricular block, second degree; E11.21 Type 2 diabetes mellitus with diabetic nephropathy; E11.22 Type 2 diabetes mellitus with diabetic chronic kidney disease; E11.65 Type 2 diabetes mellitus with hyperglycemia; Z99.2 Dependence on renal dialysis; J10.1 Influenza due to other identified influenza virus with other respiratory manifestations; E78.00 Pure hypercholesterolemia, unspecified; I35.0 Nonrheumatic aortic (valve) stenosis; E83.42 Hypomagnesemia; E87.6 Hypokalemia; F41.9 Anxiety disorder, unspecified; E66.9 Obesity, unspecified; Z68.32 Body mass index [BMI] 32.0-32.9, adult; Z95.0 Presence of cardiac pacemaker; Z91.119 Patient's noncompliance with dietary regimen due to unspecified reason; Z79.01 Long term (current) use of anticoagulants; Z79.82 Long term (current) use of aspirin; Z79.84 Long term (current) use of oral hypoglycemic drugs; Z79.85 Long-term (current) use of injectable non-insulin antidiabetic drugs; Z79.899 Other long term (current) drug therapy; Z87.891 Personal history of nicotine dependence
CPT/HCPCS: 31500; 31720; 36415; 36600; 51702; 71045; 77001; 80048; 80076; 82550; 82803; 82962; 83735; 84100; 84145; 84439; 84478; 85025; 85610; 85730; 87070; 87205; 87340; 87428; 87641; 90937; 92610; 93005; 94002; 94003; 94668; 94762; 99252; 99285; A4216; G0257; G0463; J1940; Q5106

== ENCOUNTER 2022-07-02 06:33 | Inpatient (IN) | payer OTHER, MEDICARE, SELFPAY ==
[2022-07-02] VITALS (11 sets, daily range): BP systolic 137–151; BP diastolic 58–79; PULSE 80–114; RESP 17–26; TEMP 36.7–37.5; O2SAT 91–99; BMI 33.7; BMI 33.0
[2022-07-02] MEDS: Ipratropium/Albuterol Sulfate 3 ML AMPUL.NEB INHALATION ×3 (07:01→18:52)
[2022-07-02 07:07] LABS: Absolute Lymphocyte Count 1.56 X10^3/uL (0.83-4.51); Absolute Neutrophil Count 6.8 X10^3/uL (2.0-7.7); Basophil# 0.02 X10^3/uL; Basophil% 0.2 % (0-1); Eosinophil# 0.36 X10^3/uL; Eosinophils% 3.6 % (0-5); Hematocrit 27.5 % (40-54); Hemoglobin 8.5 g/dL (13.0-16.5); Lymphocyte # 1.56 X10^3/ul (0.83-4.51); Lymphocyte % 15.6 % (19-41); Mean Corp Hgb Conc 30.9 g/dL (32-36); Mean Corpuscular Hgb 24.7 pg (27.0-32.0); Mean Corpuscular Volume 79.9 fL (80-94); Mean Platelet Vol. 10.6 fl (6.2-12.0); Monocyte# 1.23 X10^3/uL; Monocyte% 12.3 % (0-10); NRBC Flagged by Analyzer 0 % (0-5); Neutrophil # 6.78 X10^3/uL (2.7-7.7); Neutrophil % 67.5 % (47-70); Platelet Count 232 K/mm3 (150-450); RBC Distribution Width CV 15.4 % (11.6-14.6); RBC Distribution Width SD 43.8 fl (35.1-43.9); Red Blood Count 3.44 M/mm3 (4.6-6.2)
--- NOTE | 2022-07-02 07:08 | EDS_ITS ---
HPI History of Present Illness Chief Complaint: Shortness of Breath Narrative Narrative: Patient is a 77-year-old male with past medical history of end-stage renal disease currently on dialysis as well as hypertension type 2 diabetes and previous pacemaker placement. He was just admitted to the hospital roughly 1 week ago secondary to volume overload requiring intubation and incidentally had influenza A. He had a dialysis catheter placed and was dialyzed and had improvement of symptoms and was discharged from the hospital without need for supplemental oxygen. He reports he had mild congestion and cough and last night into this morning had worsening shortness of breath. He reports he checked his pulse ox and was 87% on room air. He denies any need for supplemental oxygen at home since his last admission. He denies any chest pain or pleuritic chest pain fevers or chills but with his shortness of breath sensation and low pulse ox at home has concern for worsening respiratory symptoms especially with his last intubation and therefore comes in for evaluation. [facility] Medical History Anemia ARF (acute renal failure) Back pain Bradycardia Cardiology follow-up encounter Central line complication Chronic kidney disease, stage IV (severe) Diabetes DM2 (diabetes mellitus, type 2) DVT (deep venous thrombosis) Essential hypertension Former smoker Gastric reflux High cholesterol High degree atrioventricular block History of complete heart block History of echocardiogram History of pacemaker History of renal disease History of steroid therapy History of stress test Hyperlipidemia Hypertensive urgency Kidney transplant candidate (01/31/19) Kidney transplant complication MRSA infection Pre-syncope Second degree heart block Type 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 Wears glasses Home Medications atorvastatin 40 mg tablet 40 mg PO QHS CHOLESTEROL 06/23/17 [History Last Taken 03/10/21 15:00] dulaglutide 1.5 mg/0.5 mL subcutaneous pen injector 1.5 mg SQ REYNA DIABETES 06/23/17 [History Last Taken 03/09/21] ferrous sulfate 325 mg (65 mg iron) tablet 325 mg PO DAILY supplement 10/24/18 [History Last Taken 03/10/21 09:00] aspirin 81 mg chewable tablet 81 mg PO DAILY heart health 10/02/20 [History Last Taken 03/10/21 09:00] glimepiride 4 mg tablet 4 mg PO DAILY diabetes 10/02/20 [History Last Taken 03/10/21 09:00] prednisone 5 mg tablet 5 mg PO DAILY steroid 10/02/20 [History Last Taken 03/10/21 09:00] tacrolimus 0.5 mg capsule, immediate-release 2 mg PO DAILY immunosuppresive 10/02/20 [History Last Taken 03/10/21 15:00] nifedipine 60 mg tablet,extended release 24 hr (Procardia XL) 60 mg PO DAILY blood pressure 03/11/21 [History Last Taken Unknown] tacrolimus 1 mg capsule, immediate-release 1 mg PO QHS immunosuppresive 03/11/21 [History Last Taken 03/10/21] lorazepam 1 mg tablet (Ativan) 1 mg PO TID PRN anxiety #10 tabs 01/27/22 [Rx Last Taken Unknown] Allergy/AdvReac Type Severity Reaction Status Date / Time No Known Allergies Allergy Verified 07/02/22 06:38 Family History Father Pneumonia Mother CVA (cerebral vascular accident) Surgical History History of permanent cardiac pacemaker placement (03/11/21) Renal transplant recipient S/P arteriovenous (AV) fistula creation S/P colonoscopy Status post kidney transplant [place] teeth removed Social History household members: spouse Smoking Status: Former smoker how long ago did patient quit smoking: Quit 1993, 0.5 pk/day until quit. second hand exposure: Yes alcohol intake: current alcohol intake frequency: a few times a month substance use type: does not use ROS ROS ED Constitutional Constitutional ED: Denies chills or fever(s) ENT ENT ED: Reports rhinorrhea; Denies sore throat Cardiovascular Cardiovascular: Denies chest pain Respiratory/Chest Respiratory/Chest: Reports cough and dyspnea Gastrointestinal Gastrointestinal: Denies abdominal pain, diarrhea, nausea or vomiting Musculoskeletal Musculoskeletal: Denies myalgias Integumentary Denies rash Neurologic Neurologic: Denies headache(s) Hematologic/Lymphatic Hematologic/Lymphatic: Denies easy bleeding or easy bruising EXAM Physical Exam Const Vital Signs: 07/02/22 06:33 07/02/22 06:37 07/02/22 06:43 Temperature 98.1 F Temperature Source Temporal Pulse Rate 114 H 110 H Respiratory Rate 22 H 26 H Respiratory Effort Normal Respiratory Pattern Blood Pressure 151/79 H Blood Pressure Mean 103 Pulse Ox 91 97 Oxygen Delivery Method Room Air Nasal Cannula Oxygen Flow Rate (L/min) 2 07/02/ 07:02 Temperature Temperature Source Pulse Rate 97 Respiratory Rate 18 Respiratory Effort Respiratory Pattern Normal Blood Pressure Blood Pressure Mean Pulse Ox Oxygen Delivery Method Oxygen Flow Rate (L/min) Positive well nourished, well developed and obese General Appearance ED: well developed Nutritional Appearance: obese HEENT Reports moist mucous membranes HEENT Narrative: No tongue or lip swelling no oral lesions no airway edema or compromise. Mild cobblestoning the posterior pharynx consistent with sinus drainage Eyes PERRL and EOMs intact bilaterally General Eye ED: Yes pale conjunctiva Neck supple Neck Narrative: Trace JVD noted on right Chest Wall palpation of chest normal Chest Narrative: Dialysis catheter in place in the left upper chest wall without surrounding secondary changes to suggest infection Resp clear to auscultation bilaterally Resp Narrative: Patient is tachypneic and breath sounds are diminished throughout but overall clear to auscultation Cardio regular rhythm Rate: tachycardic GI normal to inspection, nondistended, normoactive bowel sounds, non-tender, non- distended and no masses GI Narrative: No voluntary guarding or rigidity no pulsatile mass or fluid wave Auscultation: normoactive bowel sounds Palpation: soft Extremity Extremity Narrative: Fistula in place in the right upper arm with palpable thrill and good bruit. No asymmetric edema no pitting edema negative Homans' sign bilaterally Neuro oriented x3 and CN's II-XII intact bilaterally Sensorium / Orientation: alert Psych mental status grossly normal Skin no rashes or lesions noted MDM MDM MDM Narrative Medical decision making narrative: Patient arrived to the ER satting 90% on room air but reported a pulse ox of 87% on room air at home. With his most recent hospitalization being just last week and requiring intubation for respiratory failure there is concern that he is developing fluid overload once again despite dialysis or has now developed a secondary pneumonia or even a possible pulmonary embolus. Secondary to this basic blood work and a chest x-ray were obtained. The patient is currently satting in the mid 90s on 2 L nasal cannula. He does not have oxygen at home and therefore if he still requires this despite a negative work-up he will need to be readmitted to the hospital for continued oxygen therapy and care. Patient will be signed out to the day physician pending results and dispo History & Record Review Discussion w/independent historian: Patient and Family Lab Data Labs: Laboratory Results - last 24 hr 07/02/22 07:00 WBC 10.0 RBC 3.44 L Hgb 8.5 L Hct 27.5 L MCV 79.9 L MCH 24.7 L MCHC 30.9 L RDW Std Deviation 43.8 RDW Coeff of Yanely 15.4 H Plt Count 232 MPV 10.6 Immature Gran % (Auto) 0.800 Neut % (Auto) 67.5 Lymph % (Auto) 15.6 L [place] % (Auto) 12.3 H Eos % (Auto) 3.6 Baso % (Auto) 0.2 Absolute Neuts (auto) 6.8 Absolute Lymphs (auto) 1.56 Nucleated RBC % 0 Discharge Plan Triage Chief Complaint: Shortness of Breath ED Provider: Rios Viveros Dx/Rx/DC Orders Prescriptions: No Action aspirin 81 mg tablet,chewable 81 mg PO DAILY glimepiride 4 mg tablet 4 mg PO DAILY prednisone 5 mg tablet 5 mg PO DAILY tacrolimus 0.5 mg capsule 2 mg PO DAILY atorvastatin 40 MG tablet 40 mg PO QHS dulaglutide 1.5 MG/0.5 ML pen injector 1.5 mg SQ REYNA Rx Instructions: takes on Wednesday ferrous sulfate 325 MG tablet 325 mg PO DAILY nifedipine [Procardia XL] 60 mg Tablet Extended Release 24hr 60 mg PO DAILY Hold Instructions: CHECK home BP and if running > 140 SBP restart tacrolimus 1 mg Capsule 1 mg PO QHS lorazepam [Ativan] 1 mg tablet 1 mg PO TID PRN (Reason: anxiety) Qty: 10 0RF Primary Care Provider: Sy Sharma Chi Referrals: Sy Sharma Chi, MD [Primary Care Provider] -
[2022-07-02 07:22] LABS: Anion Gap 18 (5-15); BUN 61 mg/dL (7-18); Calcium,Total 6.6 mg/dL (8.5-10.1); Chloride 97 mmol/L (98-107); Creatinine, Serum 6.78 mg/dL (0.70-1.30); EST Glomerular Filtration Rate 9 mL/min (>60); Est Glom Filt Rate - Afr Amer 10 mL/min (>60); Estimated Creatinine Clearance 9.11 ml/min; Glucose 203 mg/dL (74-106); Magnesium 1.9 mg/dL (1.6-2.6); Phosphorus 6.3 mg/dL (2.5-4.9); Potassium 3.4 mmol/L (3.5-5.1); Sodium Level 138 mmol/L (136-145)
--- NOTE | 2022-07-02 07:28 | RAD_ITS ---
EXAM: XR CHEST, 2 VIEWS CLINICAL INDICATION: dyspnea TECHNIQUE: Frontal and lateral views of the chest. This report was created using [employer] report generation technology. COMPARISON: 06/26/2022 FINDINGS: LUNGS AND PLEURAL SPACES: Patchy bibasilar airspace disease. No pneumothorax. No effusion. HEART: Mild enlargement of the cardiac silhouette. MEDIASTINUM: Central airways and mediastinal contour are unremarkable. BONES/JOINTS: Unremarkable. SOFT TISSUES: Unremarkable. TUBES, LINES AND DEVICES: Left chest pacer. Left chest central venous catheter. RAD/Chest PA and Lateral IMPRESSION: Patchy bibasilar airspace disease. Findings may indicate atelectasis or pneumonia. Electronically Signed: Earnest Resendez MD at 7:49 EDT ,
[2022-07-02 07:37] LABS: Troponin-I HS 754 pg/mL (3.0-78.0)
[2022-07-02] MEDS: Aspirin 325 MG Tablet PO (08:07)
--- NOTE | 2022-07-02 08:27 | HP.PCM.HOS_ITS ---
HPI - General General Date of Admission: 07/02/22 Date of Service: 07/02/22 Chief Complaint: shortness of breath HPI Narrative POLINA GANDARA, is a 77 M with a PMH as outlined who presents via the ED with a complaint of shortness of breath. He has a history of ESRD and is s/p renal transplant, on tacrolimus, and subsequently started on hemodialysis. HE was recently admitted for shortness of breath due to fluid overload, and he was intubated and commenced on hemodialysis. He was discharged on 06/26/2022. He presented today with shortness of breath. HE checked his pulse ox and was hypoxic, saturating at 87% on room air. He denied any chest pain, palpitations, dizziness, nausea, vomiting or diarrhea. He did admit to a cough which was productive of yellow sputum. Review of systems was otherwise negative. Vitals were BP of 145/72, ND of 96, RR of 22, temp of 98.6F and he was saturating at 98% on 2L of oxygen. CBC showed wbc of 10, hb of 8.5 and platelets of 232. CHemistry showed sodium of 138, potassium of 3.4 nad Cr of 6.78. BUN was 61. Troponin was 754.CXR showed patchy bibasilar airspace disease. He is being admitted to be managed for hypoxia in setting of ESRD, likely due to fluid overload and probable pneumonia based on CXR findings. Of note, he was recently managed for influenza A infection during his previous admission, and so there is a possibility of post influenza pneumonia also. [facility] Medical History Anemia ARF (acute renal failure) Back pain Bradycardia Cardiology follow-up encounter Central line complication Chronic kidney disease, stage IV (severe) Diabetes DM2 (diabetes mellitus, type 2) DVT (deep venous thrombosis) Essential hypertension Former smoker Gastric reflux High cholesterol High degree atrioventricular block History of complete heart block History of echocardiogram History of pacemaker History of renal disease History of steroid therapy History of stress test Hyperlipidemia Hypertensive urgency Kidney transplant candidate (01/31/19) Kidney transplant complication MRSA infection Pre-syncope Second degree heart block Type 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 Wears glasses Home Medications atorvastatin 40 mg tablet 40 mg PO QHS CHOLESTEROL 06/23/17 [History Last Taken 03/10/21 15:00] dulaglutide 1.5 mg/0.5 mL subcutaneous pen injector 1.5 mg SQ REYNA DIABETES 06/23/17 [History Last Taken 03/09/21] ferrous sulfate 325 mg (65 mg iron) tablet 325 mg PO DAILY supplement 10/24/18 [History Last Taken 03/10/21 09:00] aspirin 81 mg chewable tablet 81 mg PO DAILY heart health 10/02/20 [History Last Taken 03/10/21 09:00] glimepiride 4 mg tablet 4 mg PO DAILY diabetes 10/02/20 [History Last Taken 03/10/21 09:00] prednisone 5 mg tablet 5 mg PO DAILY steroid 10/02/20 [History Last Taken 03/10/21 09:00] tacrolimus 0.5 mg capsule, immediate-release 2 mg PO DAILY immunosuppresive 10/02/20 [History Last Taken 03/10/21 15:00] nifedipine 60 mg tablet,extended release 24 hr (Procardia XL) 60 mg PO DAILY blo od pressure 03/11/21 [History Last Taken Unknown] tacrolimus 1 mg capsule, immediate-release 1 mg PO QHS immunosuppresive 03/11/21 [History Last Taken 03/10/21] lorazepam 1 mg tablet (Ativan) 1 mg PO TID PRN anxiety #10 tabs 01/27/22 [Rx Last Taken Unknown] Allergy/AdvReac Type Severity Reaction Status Date / Time No Known Allergies Allergy Verified 07/02/22 06:38 Family History Father Pneumonia Mother CVA (cerebral vascular accident) Surgical History History of permanent cardiac pacemaker placement (03/11/21) Renal transplant recipient S/P arteriovenous (AV) fistula creation S/P colonoscopy Status post kidney transplant [place] teeth removed Social History household members: spouse Smoking Status: Former smoker how long ago did patient quit smoking: Quit 1993, 0.5 pk/day until quit. second hand exposure: Yes alcohol intake: current alcohol intake frequency: a few times a month substance use type: does not use ROS Constitutional Constitutional: Reports fatigue, malaise and weakness; Denies anorexia, chills or fever(s) Eyes Eyes: Denies change in vision ENT HEENT: Denies dysphagia or headache(s) Cardiovascular Cardiovascular: Reports dyspnea on exertion; Denies chest pain, edema, orthop marleni, palpitations or rapid heart rate Respiratory/Chest Respiratory/Chest: Reports cough, dyspnea, productive cough, shortness of breath at rest and shortness of breath with exertion; Denies hemoptysis or wheezing Gastrointestinal Gastrointestinal: Denies constipation, diarrhea, nausea or vomiting Genitourinary Genitourinary: Denies dysuria Musculoskeletal Musculoskeletal: Denies arthralgias Neurologic Neurologic: Denies confusion, dizziness, focal weakness, headache(s) or numbness Psychiatric Psychiatric: Denies anxiety or depression Hematologic/Lymphatic Hematologic/Lymphatic: Denies anemia Vital Signs Vital Signs Vital Signs: 07/02/22 06:33 07/02/22 06:37 07/02/22 06:43 Temperature 98.1 F Temperature Source Temporal Pulse Rate 114 H 110 H Respiratory Rate 22 H 26 H Respiratory Effort Normal Respiratory Pattern Blood Pressure 151/79 H Blood Pressure Mean 103 Pulse Ox 91 97 Oxygen Delivery Method Room Air Nasal Cannula Oxygen Flow Rate (L/min) 2 07/02/22 07:02 07/02/22 07:33 Temperature 98.6 F Temperature Source Oral Pulse Rate 97 96 Respiratory Rate 18 22 H Respiratory Effort Respiratory Pattern Normal Blood Pressure 145/72 H Blood Pressure Mean 96 Pulse Ox 98 Oxygen Delivery Method Nasal Cannula Oxygen Flow Rate (L/min) 2 Weight Weight: 221 lb 9.033 oz Body Mass Index (BMI) 33.7 Physical Exam Const alert, oriented x3 and no apparent distress General Appearance: cooperative HEENT normocephalic, head/scalp atraumatic and hearing grossly normal bilaterally HEENT Narrative: dry oral mucosal membranes Eyes PERRL, EOMs intact bilaterally and conjunctivae normal Neck no lymphadenopathy and supple Resp Resp Narrative: Mildly diminished breath sounds bibasally. No wheezes or crackles. On 2 L of oxygen via nasal cannula. Cardio regular rate, regular rhythm, S1 normal heart sound, S2 normal heart sound and no murmurs GI normal to inspection, nondistended, normoactive bowel sounds, soft to palpation, non-tender and non-distended GI Narrative: AV fistula in left upper extremity with good thrill. Fistula not fully matured. Extremity normal to inspection, full ROM and no clubbing, cyanosis or edema Neuro oriented x3, CN's II-XII intact bilaterally, moves all extremities and no focal motor deficits Sensorium / Orientation: awake and alert Motor Exam: strength 5/5 throughout Psych affect normal Results Lab / Micro Data Result Diagrams: 07/02/22 07:00 07/02/22 07:00 Labs: Laboratory Results - last 24 hr 07/02/22 07:00: WBC 10.0, RBC 3.44 L, Hgb 8.5 L, Hct 27.5 L, MCV 79.9 L, MCH 24.7 L, MCHC 30.9 L, RDW Std Deviation 43.8, RDW Coeff of Yanely 15.4 H, Plt Count 232, MPV 10.6, Immature Gran % (Auto) 0.800, Neut % (Auto) 67.5, Lymph % (Auto) 15.6 L, [place] % (Auto) 12.3 H, Eos % (Auto) 3.6, Baso % (Auto) 0.2, Absolute Neuts (auto) 6.8, Absolute Lymphs (auto) 1.56, Nucleated RBC % 0 07/02/22 07:00: Sodium 138, Potassium 3.4 L, Chloride 97 L, Carbon Dioxide 23.0, Anion Gap 18 H, BUN 61 H, Creatinine 6.78 H, Estim Creat Clear Calc 9.11, Est GFR (MDRD) Af Amer 10 L, Est GFR (MDRD) Non-Af 9 L, BUN/Creatinine Ratio 9.0 L, Glucose 203 H, Calcium 6.6 L, Phosphorus 6.3 H, Magnesium 1.9 07/02/22 07:00: Troponin I High Sens 754 H* Micro: Microbiology 07/02/22 07:00 Nasal Secretion SARS-CoV-2 Antigen (Rapid) - Final Radiology Impression Chest X-Ray 07/02/22 07:28 IMPRESSION: Patchy bibasilar airspace disease. Findings may indicate atelectasis or pneumonia. Electronically Signed: Earnest Resendez MD at 7:49 EDT , Assessment & Plan Assessment/Plan (1) Dyspnea: (2) Pneumonia: (3) Elevated troponin: PLAN: Plan #HYpoxia, likely due to probable post influenza pneumonia and fluid overload * admit to PCU * CXR showed bibasilar infiltrates. He doesnt wear oxygen at home. * Urine for strep and legionella, as well as sputum cultures ordered * Get blood cultures as well. Titrate oxygen to maintain saturation above 90%. * . Azithromycin and place patient on IV ceftriaxone and doxycycline to cover for any staph infection as post influenza pneumonia close by staff. * Cycle troponins as well as troponin was elevated. * #Pneumonia, probably post influenza: As above. #Elevated troponins. * Patient's initial troponin was more than 700 and trended slightly up. This is the highest troponins have ever been. He denies any chest pain. Car diology consulted. * CTA chest ordered to rule out PE. * #History of complete heart block s/p permanent pacemaker insertion: Follows up with pacemaker clinic on outpatient basis. #ESRD: * S/p kidney transplant with subsequently failed. Now on dialysis. * Last had dialysis 2 days prior to admission and states he took off 1 L. He was just added on dialysis about a week ago after he came in for acute hypoxic respiratory failure and was intubated. He was discharged after about 48 to 72 hours. * Nephrology consulted. Patient will need dialysis to help with probable fluid overload. * Still on tacrolimus for the failed kidney transplant. * Type 2 diabetes mellitus: Trulicity held as is nonformulary. Insulin sliding scale. Accu-Cheks ACHS. #Hypertension: On nifedipine DVT prophylaxis: Lovenox renally dosed CODE STATUS: Full code * Patient and counseled extensively about different types of CODE STATUS including full code, DNR CCA and DNR CCA. Patient elects to be full code. * Total [id number] time 17 minutes. Charges/Coding Visit Charges Inpatient E&M: 36541 Init Hosp L3 Procedures Hospitalists Procedures: 08019 Advncd Care Plan 30 Min
--- NOTE | 2022-07-02 08:43 | NURSING ---
PCU KOR [facility]POXIA
[2022-07-02] MEDS: Ceftriaxone 1 GM/50 ML BAG IV (08:44)
--- NOTE | 2022-07-02 10:18 | CON.PCM.RE_ITS ---
Assessment & Plan Assessment/Plan (1) ESRD (end stage renal disease): (2) Pneumonia: (3) Anemia of chronic renal failure, stage 4 (severe): PLAN: Plan This is a 77-year-old male who presented to emergency room with complaints of shortness of breath, chest x-ray concerning for pneumonia and patient was admitt ed to the hospital for further evaluation and treatment. Patient has history of new ESRD secondary to FSGS status post living donor kidney transplant (January 2019); on prednisone and tacrolimus, mycophenolate stopped last week due to presence of influenza A who was started on hemodialysis about 1 week ago due to worsening kidney function with fluid overload. His outpatient dialysis schedule is Wednesday. Patient last dialyzed on Wednesday. He is tolerating dialysis with fluid removal. He has not reached a dry weight yet at this time. We will continue to provide dialysis support while patient is in the hospital. He will dialyze over 3.5 hours on 3K bath with fluid removal as patient/blood pressure tolerates. Patient has history of anemia of chronic disease and prior to starting dialysis had been following with hematology for Procrit injections. Hemoglobin today 8.5. Patient's hemoglobin at the kidney center on Wednesday was 10. Patient did receive Epogen last week when in the hospital. He will be started on iron and BOLIVAR at the kidney center. We will give dose of Epogen with dialysis in the hospital. Blood pressures acceptable. For shortness of breath possibly secondary to pneumonia, but also to note during last hospitalization patient was also diagnosed with influenza A. We will continue to remove fluid with dialysis as patient and blood pressure will tolerate. Patient has been started on IV antibiotics, azithromycin and ceftriaxone. He also received breathing treatment and reports breathing has improved. Encourage patient to be up to chair, out of bed for all meals. Further orders forthcoming as hospitalization evolves, thank you for allowing us to participate in the care of Mr. Burns. HPI Consult Data Date of Consult: 07/02/22 HPI Narrative HPI Narrative: POLINA BURNS, is a 77 M with past medical history significant for ESRD secondary to FSGS status post living donor kidney transplant (January 2019), diabetes mellitus type 2, hypertension, hyperlipidemia, anemia of chronic disease who presented to the emergency room this morning with complaints of shortness of breath and cough. Pulse ox was 87% on room air. Work-up in emergency room concerning for pneumonia and/or fluid overload therefore patient was admitted for further evaluation and treatment. Patient has history of new ESRD and was started on hemodialysis last week after he was admitted to the hospital on June 23, 2022 with acute hypoxic respiratory failure thought to be secondary to influenza A infection, pneumonia and pulmonary edema. Patient initially was on ventilator support. His first watson lysis was June 24 via a tunneled hemodialysis catheter. Patient did have a right forearm AV fistula creation on May 18, [address] Sorto, fistula is maturing and not ready to be accessed for hemodialysis at this point. Patient denies any recent fever or chills. No nausea or vomiting. Reports appetite is poor. [facility] Medical History Anemia ARF (acute renal failure) Back pain Bradycardia Cardiology follow-up encounter Central line complication Chronic kidney disease, stage IV (severe) Diabetes DM2 (diabetes mellitus, type 2) DVT (deep venous thrombosis) Essential hypertension Former smoker Gastric reflux High cholesterol High degree atrioventricular block History of complete heart block History of echocardiogram History of pacemaker History of renal disease History of steroid therapy History of stress test Hyperlipidemia Hypertensive urgency Kidney transplant candidate (01/31/19) Kidney transplant complication MRSA infection Pre-syncope Second degree heart block Type 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 Wears glasses Home Medications atorvastatin 40 mg tablet 40 mg PO QHS CHOLESTEROL 06/23/17 [History Last Taken 03/10/21 15:00] dulaglutide 1.5 mg/0.5 mL subcutaneous pen injector 1.5 mg SQ REYNA DIABETES 06/23/17 [History Last Taken 03/09/21] ferrous sulfate 325 mg (65 mg iron) tablet 325 mg PO DAILY supplement 10/24/18 [History Last Taken 03/10/21 09:00] aspirin 81 mg chewable tablet 81 mg PO DAILY heart health 10/02/20 [History Last Taken 03/10/21 09:00] glimepiride 4 mg tablet 4 mg PO DAILY diabetes 10/02/20 [History Last Taken 03/10/21 09:00] prednisone 5 mg tablet 5 mg PO DAILY steroid 10/02/20 [History Last Taken 03/10/21 09:00] tacrolimus 0.5 mg capsule, immediate-release 2 mg PO DAILY immunosuppresive 10/02/20 [History Last Taken 03/10/21 15:00] nifedipine 60 mg tablet,extended release 24 hr (Procardia XL) 60 mg PO DAILY blood pressure 03/11/21 [History Last Taken Unknown] tacrolimus 1 mg capsule, immediate-release 1 mg PO QHS immunosuppresive 03/11/21 [History Last Taken 03/10/21] lorazepam 1 mg tablet (Ativan) 1 mg PO TID PRN anxiety #10 tabs 01/27/22 [Rx Last Taken Unknown] Allergy/AdvReac Type Severity Reaction Status Date / Time No Known Allergies Allergy Verified 07/02/22 06:38 Family History Father Pneumonia Mother CVA (cerebral vascular accident) Surgical History History of permanent cardiac pacemaker placement (03/11/21) Renal transplant recipient S/P arteriovenous (AV) fistula creation S/P colonoscopy Status post kidney transplant [place] teeth removed Social History household members: spouse Smoking Status: Former smoker how long ago did patient quit smoking: Quit 1993, 0.5 pk/day until quit. second hand exposure: Yes alcohol intake: current alcohol intake frequency: a few times a month substance use type: does not use ROS ROS Narrative As per HPI Physical Exam Narrative Alert and oriented x3, no apparent distress S1, S2, RRR Lung sounds clear anteriorly, diminished breath sounds posterior bases. No rales or rhonchi noted Abdomen is soft, nontender Non-pitting edema noted bilateral lower legs AV fistula positive thrill and bruit Tunneled HD catheter dressing clean, dry and intact Lab / Micro Data Result Diagrams: 07/02/22 07:00 07/02/22 07:00 Labs: Laboratory Results - last 24 hr 07/02/22 07:00: WBC 10.0, RBC 3.44 L, Hgb 8.5 L, Hct 27.5 L, MCV 79.9 L, MCH 24.7 L, MCHC 30.9 L, RDW Std Deviation 43.8, RDW Coeff of Yan[place] 15.4 H, Plt Count 232, MPV 10.6, Immature Gran % (Auto) 0.800, Neut % (Auto) 67.5, Lymph % (Auto) 15.6 L, [place] % (Auto) 12.3 H, Eos % (Auto) 3.6, Baso % (Auto) 0.2, Absolute Neuts (auto) 6.8, Absolute Lymphs (auto) 1.56, Nucleated RBC % 0 07/02/22 07:00: Sodium 138, Potassium 3.4 L, Chloride 97 L, Carbon Dioxide 23.0, Anion Gap 18 H, BUN 61 H, Creatinine 6.78 H, Estim Creat Clear Calc 9.11, Est GFR (MDRD) Af Amer 10 L, Est GFR (MDRD) Non-Af 9 L, BUN/Creatinine Ratio 9.0 L, Glucose 203 H, Calcium 6.6 L, Phosphorus 6.3 H, Magnesium 1.9 07/02/22 07:00: Troponin I High Sens 754 H* Micro: Microbiology 07/02/22 07:00 Nasal Secretion SARS-CoV-2 Antigen (Rapid) - Final Radiology Impression Chest X-Ray 07/02/22 07:28 IMPRESSION: Patchy bibasilar airspace disease. Findings may indicate atelectasis or pneumonia. Electronically Signed: Earnest Resendez MD at 7:49 EDT ,
[2022-07-02 11:41] LABS: Bedside Glucose 185 mg/dL (74-106)
[2022-07-02] MEDS: Insulin Lispro 100 UNIT/ML INSULN.PEN SC ×3 (12:02→22:28)
[2022-07-02 12:23] LABS: Troponin-I HS 706 pg/mL (3.0-78.0)
[2022-07-02] MEDS: Glimepiride 4 MG Tablet PO (13:04)
[2022-07-02] MEDS: Ferrous Sulfate 325 MG Tablet PO (13:04)
[2022-07-02] MEDS: Tacrolimus Anhydrous 1 MG Capsule 2 MG PO (13:04)
[2022-07-02] MEDS: predniSONE 5 MG Tablet PO (13:04)
[2022-07-02 13:37] LABS: Troponin-I HS 759 pg/mL (3.0-78.0)
--- NOTE | 2022-07-02 14:41 | PCM.CONS.C ---
Assessment & Plan Assessment/Plan (1) Dyspnea: PLAN: Acute onset dyspnea after recent hospitalization. Hypoxic on admission. Recommend check chest CTA rule out PE. Also noticed patchy infiltrates on chest x-ray. Pneumonia. (2) Elevated troponin: PLAN: Flat trend. Likely type II. Will repeat limited 2D echocardiogram to assess LV function. (3) Pneumonia: PLAN: As per internal medicine. (4) ESRD (end stage renal disease): PLAN: On hemodialysis. Nephrology following. (5) History of permanent cardiac pacemaker placement: PLAN: Follow at the pacemaker clinic. (6) DM2 (diabetes mellitus, type 2): PLAN: As per internal medicine. HPI Consult Data Date of Consult: 07/02/22 HPI Narrative Reason for Consultation: Shortness of breath, elevated troponin HPI Narrative: The patient has history of chronic kidney disease status post renal transplant. Apparently the renal transplant is failed and he has been started on hemodialysis again since last week. He was admitted to the hospital last week with fluid volume overload. He was intubated and started on hemodialysis. He was discharged home only about a week ago. He presented again today with complaints of acute onset dyspnea that started last night. According to him, he had some chest tightness with that. He was noted to be hypoxic with oxygen saturation 89%. Chest x-ray shows patchy infiltrates suggestive of pneumonia. However troponins were also checked for him and these are noted to be elevated. Patient denies history of coronary artery disease. No chest pain. [facility] Medical History Anemia ARF (acute renal failure) Back pain Bradycardia Cardiology follow-up encounter Central line complication Chronic kidney disease, stage IV (severe) Diabetes DM2 (diabetes mellitus, type 2) DVT (deep venous thrombosis) Essential hypertension Former smoker Gastric reflux High cholesterol High degree atrioventricular block History of complete heart block History of echocardiogram History of pacemaker History of renal disease History of steroid therapy History of stress test Hyperlipidemia Hypertensive urgency Kidney transplant candidate (01/31/19) Kidney transplant complication MRSA infection Pre-syncope Second degree heart block Type 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 Wears glasses Home Medications atorvastatin 40 mg tablet 40 mg PO QHS CHOLESTEROL 06/23/17 [History Last Taken 03/10/21 15:00] dulaglutide 1.5 mg/0.5 mL subcutaneous pen injector 1.5 mg SQ REYNA DIABETES 06/23/17 [History Last Taken 03/09/21] ferrous sulfate 325 mg (65 mg iron) tablet 325 mg PO DAILY supplement 10/24/18 [History Last Taken 03/10/21 09:00] aspirin 81 mg chewable tablet 81 mg PO DAILY heart health 10/02/20 [History Last Taken 03/10/21 09:00] glimepiride 4 mg tablet 4 mg PO DAILY diabetes 10/02/20 [History Last Taken 03/10/21 09:00] prednisone 5 mg tablet 5 mg PO DAILY steroid 10/02/20 [History Last Taken 03/10/21 09:00] tacrolimus 0.5 mg capsule, immediate-release 2 mg PO DAILY immunosuppresive 10/02/20 [History Last Taken 03/10/21 15:00] nifedipine 60 mg tablet,extended release 24 hr (Procardia XL) 60 mg PO DAILY blood pressure 03/11/21 [History Last Taken Unknown] tacrolimus 1 mg capsule, immediate-release 1 mg PO QHS immunosuppresive 03/11/21 [History Last Taken 03/10/21] lorazepam 1 mg tablet (Ativan) 1 mg PO TID PRN anxiety #10 tabs 01/27/22 [Rx Last Taken Unknown] Allergy/AdvReac Type Severity Reaction Status Date / Time No Known Allergies Allergy Verified 07/02/22 06:38 Family History Father Pneumonia Mother CVA (cerebral vascular accident) Surgical History History of permanent cardiac pacemaker placement (03/11/21) Renal transplant recipient S/P arteriovenous (AV) fistula creation S/P colonoscopy Status post kidney transplant [place] teeth removed Social History household members: spouse Smoking Status: Former smoker how long ago did patient quit smoking: Quit 1993, 0.5 pk/day until quit. second hand exposure: Yes alcohol intake: current alcohol intake frequency: a few times a month substance use type: does not use Physical Exam Narrative Lying flat in the bed. Comfortable. No apparent distress. Heart sounds 1 and 2 are noted. Regular. Decreased breath sounds noted at bilateral bases. Abdomen soft. Alert oriented x3. No ankle edema noted. Risk Stratification Risk Stratification Applicable: No Objective Data Vital Signs: Vital Signs Temp Pulse Resp BP Pulse Ox O2 Del Method O2 Flow Rate 98.8 F 87 18 138/58 H 99 Nasal Cannula 2 07/02/22 14:00 07/02/22 14:00 07/02/22 14:00 07/02/22 14:00 07/02/22 14:00 07/02/22 14:00 07/02/22 14:00 Oxygen Flow Rate (L/min) 2 Oxygen Delivery Method Nasal Cannula Weight: 217 lb 2.485 oz Body Mass Index (BMI) 33.0 Intake & Output: Intake and Output for Last 24 Hours 06/30/22 07/01/22 07/02/22 23:59 23:59 23:59 Intake Total 665 / 665 Balance 665 / 665 Lab / Micro Data Result Diagrams: 07/02/22 07:00 07/02/22 07:00 Labs: Laboratory Results - last 24 hr 07/02/22 07:00: WBC 10.0, RBC 3.44 L, Hgb 8.5 L, Hct 27.5 L, MCV 79.9 L, MCH 24.7 L, MCHC 30.9 L, RDW Std Deviation 43.8, RDW Coeff of Yanely 15.4 H, Plt Count 232, MPV 10.6, Immature Gran % (Auto) 0.800, Neut % (Auto) 67.5, Lymph % (Auto) 15.6 L, [place] % (Auto) 12.3 H, Eos % (Auto) 3.6, Baso % (Auto) 0.2, Absolute Neuts (auto) 6.8, Absolute Lymphs (auto) 1.56, Nucleated RBC % 0 07/02/22 07:00: Sodium 138, Potassium 3.4 L, Chloride 97 L, Carbon Dioxide 23.0, Anion Gap 18 H, BUN 61 H, Creatinine 6.78 H, Estim Creat Clear Calc 9.11, Est GFR (MDRD) Af Amer 10 L, Est GFR (MDRD) Non-Af 9 L, BUN/Creatinine Ratio 9.0 L, Glucose 203 H, Calcium 6.6 L, Phosphorus 6.3 H, Magnesium 1.9 07/02/22 07:00: Troponin I High Sens 754 H* 07/02/22 11:09: POC Glucose 185 H 07/02/22 11:40: Troponin I High Sens 706 H* 07/02/22 13:10: Troponin I High Sens 759 H* Micro: Microbiology 07/02/22 07:00 Nasal Secretion SARS-CoV-2 Antigen (Rapid) - Final Rhythm Strip Rhythm Strip: Sinus Rhythm Cardiology Labs/Tests 07/02/22 07:00: WBC 10.0, RBC 3.44 L, Hgb 8.5 L, Hct 27.5 L, MCV 79.9 L, MCH 24.7 L, MCHC 30.9 L, Plt Count 232, MPV 10.6, Immature Gran % (Auto) 0.800, Neut % (Auto) 67.5, Lymph % (Auto) 15.6 L, [place] % (Auto) 12.3 H, Eos % (Auto) 3.6, Baso % (Auto) 0.2, Absolute Neuts (auto) 6.8, Nucleated RBC % 0 07/02/22 07:00: Sodium 138, Potassium 3.4 L, Chloride 97 L, Carbon Dioxide 23.0, Anion Gap 18 H, BUN 61 H, Creatinine 6.78 H, Est GFR (MDRD) Af Amer 10 L, Est GFR (MDRD) Non-Af 9 L, BUN/Creatinine Ratio 9.0 L, Glucose 203 H, Calcium 6.6 L, Phosphorus 6.3 H, Magnesium 1.9 Rhythm: Sinus rhythm with electronic ventricular pacemaker activity. EKG: Normal sinus rhythm with electronic ventricular pacemaker. ECHO: Left ventricular systolic function was noted to be normal on echocardiogram done in April. Stress Test: Cardiac Cath: PCI: CT Surgery: Holter monitor: EPS: PPM: CXR: Chest CT Scan: Radiography Diagnostic Testing: Radiology Impression Chest X-Ray 07/02/22 07:28 IMPRESSION: Patchy bibasilar airspace disease. Findings may indicate atelectasis or pneumonia. Electronically Signed: Earnest Resendez MD at 7:49 EDT ,
--- NOTE | 2022-07-02 14:50 | CT_ITS ---
STUDY: CTA CHEST REASON FOR EXAM: Male, 77 years old. Hypoxia R/O PE RADIATION DOSAGE (If Supplied By Facility): CTDIvol = ( 19.57 ) mGy, DLP = ( 508.53 ) mGycm TECHNIQUE: The examination was performed with the intravenous administration of IV 100mL Isovue-370. Post-processing of the angiographic images was performed, with multiplanar reformation and 3D reconstruction. Individualized dose optimization techniques were used for this CT. COMPARISON: Comparison is made with prior chest radiograph done earlier in the day. FINDINGS: Multiple bilateral intraluminal filling defects involving branches of both right and left upper lobes more prominent on the right side. There is also evidence of small intraluminal filling defects in branches of the right lower lobe pulmonary arterial branches. There is atherosclerotic calcification of the aortic arch with tortuosity. There is no demonstrated aortic dissection. There are calcifications of the coronary arteries. There are visualized mediastinal lymph nodes, which are within normal size limits, and with normal morphology. Normal hilar regions. Normal visualized trachea and bronchi. The lungs are well expanded. Patchy bibasilar pulmonary infiltrates worse on the left side. Focal areas of groundglass appearance in the posterior aspect of the right upper lobe as well as the anterior aspect of the right lower lobe. Patchy infiltrate is also seen in the upper lobes more prominent in the right upper lobe. Small bilateral pleural effusions. Normal chest wall structures. There are degenerative changes of thoracic spine. Normal visualized upper abdomen. CT/CTA Chest W/WO Contrast IMPRESSION: Bilateral pulmonary emboli more prominent in the right lung as described. Small bilateral effusions with infiltrates as described. Electronically Signed: Kelechi Pleitez MD at 15:46 EDT ,
--- NOTE | 2022-07-02 14:50 | ECHOL_ITS ---
Reason For Study: Dyspnea/SOB Procedure This was a limited 2D transthoracic echocardiogram. Exam performed portable in patient room. Left Ventricle Normal LV size. Moderate concentric left ventricular hypertrophy. Mild segmental systolic dysfunction (see wall motion). The estimated ejection fraction is 50 %. Stage 1 diastolic dysfunction. Apical wall motion abnormality may reflect pacemaker activation. Right Ventricle Normal RV size. ICD or pacer leads identified within the right ventricle. Normal systolic function. Tricuspid Valve Normal tricuspid valve. Aortic Valve Trisinus/trileaflet aortic valve. Pulmonic Valve Normal pulmonic valve. Great Vessels Normal aortic root. The pulmonary artery is normal size. Normal inferior vena cava. Pericardium/Pleural No pericardial effusion. MMode/2D Measurements & Calculations LVIDd: 5.6 cm IVSd: 1.8 cm LA dimension: 4.6 cm LVIDs: 4.2 cm LVPWd: 1.4 cm RVDd: 3.0 cm FS: 25.7 % Time Measurements MV dec time: 0.21 sec Doppler Measurements & Calculations MV E max carlos manuel: 111.5 cm/sec Lat Peak E' Carlos Manuel: 7.9 cm/sec Med Peak E' Carlos Manuel: 5.1 cm/sec MV A max carlos manuel: 116.3 cm/sec E/E' lat: 14.2 E/E' med: 21.8 MV E/A: 0.96 ECHO/Echo, Limited Study Interpretation Summary Normal LV size. Moderate concentric left ventricular hypertrophy. Mild segmental systolic dysfunction (see wall motion). The estimated ejection fraction is 50 %. Stage 1 diastolic dysfunction. Ordering Physician: Edie Chadwick Performed By: Howard Escamilla RCS
[2022-07-02 16:31] LABS: Bedside Glucose 197 mg/dL (74-106)
[2022-07-02] MEDS: Epoetin Alfa epbx 10,000 UNITS/ML 20000 UNIT IV (17:25)
[2022-07-02] MEDS: Heparin Injection (Vial) 5,000 UNIT/ML VIAL 7500 UNIT IV (18:37)
[2022-07-02] MEDS: HEPARIN/D5w 25,000 UNITS 25,000 UNITS/250 ML IV.SOLN. 14 UNITS CONT INF (18:38)
[2022-07-02] MEDS: 0.9% Saline Lock 10 ML Syringe IV (18:40)
[2022-07-02 18:48] LABS: Troponin-I HS 694 pg/mL (3.0-78.0)
[2022-07-02 18:48] LABS: International Normalized Ratio 1.2; Prothrombin Time (Protime)PT. 14.9 SECONDS (11.7-14.9)
[2022-07-02 18:49] LABS: Partial Thromboplast Time 34.2 Seconds (24.1-36.2)
--- NOTE | 2022-07-02 20:01 | DIALYSIS ---
Hemodialysis tx completed x 3 hour without complications. Pt tolerated tx well, fluid removed 2500ml using crit-line monitor to B-profile. Vitals stable post tx. verbal report given to NORMA Navas post tx
[2022-07-02] MEDS: Atorvastatin Calcium 40 MG Tablet PO (22:28)
[2022-07-02] MEDS: Tacrolimus Anhydrous 1 MG Capsule PO (22:28)
[2022-07-03] VITALS (9 sets, daily range): BP systolic 109–149; BP diastolic 58–78; PULSE 80–92; RESP 16–23; TEMP 36.2–36.8; O2SAT 93–96; BMI 32.3
[2022-07-03 00:40] LABS: Bedside Glucose 192 mg/dL (74-106)
[2022-07-03 01:26] LABS: Partial Thromboplast Time 189.6 Seconds (24.1-36.2)
[2022-07-03 07:01] LABS: Absolute Lymphocyte Count 1.74 X10^3/uL (0.83-4.51); Absolute Neutrophil Count 5.8 X10^3/uL (2.0-7.7); Basophil# 0.03 X10^3/uL; Basophil% 0.3 % (0-1); Eosinophil# 0.22 X10^3/uL; Eosinophils% 2.5 % (0-5); Hematocrit 26.7 % (40-54); Hemoglobin 8.1 g/dL (13.0-16.5); Lymphocyte # 1.74 X10^3/ul (0.83-4.51); Lymphocyte % 19.4 % (19-41); Mean Corp Hgb Conc 30.3 g/dL (32-36); Mean Corpuscular Hgb 24.7 pg (27.0-32.0); Mean Corpuscular Volume 81.4 fL (80-94); Mean Platelet Vol. 10.7 fl (6.2-12.0); Monocyte# 1.13 X10^3/uL; Monocyte% 12.6 % (0-10); NRBC Flagged by Analyzer 0 % (0-5); Neutrophil # 5.76 X10^3/uL (2.7-7.7); Neutrophil % 64.2 % (47-70); Platelet Count 272 K/mm3 (150-450); RBC Distribution Width CV 15.5 % (11.6-14.6); Red Blood Count 3.28 M/mm3 (4.6-6.2)
[2022-07-03] MEDS: Ipratropium/Albuterol Sulfate 3 ML AMPUL.NEB INHALATION ×4 (07:08→19:37)
[2022-07-03 07:21] LABS: Bedside Glucose 93 mg/dL (74-106)
[2022-07-03 07:27] LABS: Anion Gap 11 (5-15); BUN 37 mg/dL (7-18); BUN/Creat Ratio 7.6 RATIO (10-20); Calcium,Total 7.1 mg/dL (8.5-10.1); Chloride 100 mmol/L (98-107); Creatinine, Serum 4.86 mg/dL (0.70-1.30); EST Glomerular Filtration Rate 13 mL/min (>60); Est Glom Filt Rate - Afr Amer 15 mL/min (>60); Estimated Creatinine Clearance 12.71 ml/min; Glucose 97 mg/dL (74-106); Potassium 3.2 mmol/L (3.5-5.1); Sodium Level 139 mmol/L (136-145)
[2022-07-03] MEDS: predniSONE 5 MG Tablet PO (09:38)
[2022-07-03] MEDS: NIFEdipine 60 MG Tablet PO (09:38)
[2022-07-03] MEDS: Glimepiride 4 MG Tablet PO (09:38)
[2022-07-03] MEDS: Nepro Liquid 120 ML LIQUID PO ×4 (09:38→21:40)
[2022-07-03] MEDS: Potassium Chloride Oral Tablet 20 MEQ 40 MEQ PO (09:38)
[2022-07-03] MEDS: Tacrolimus Anhydrous 1 MG Capsule 2 MG PO (09:38)
[2022-07-03] MEDS: Aspirin 81 MG TAB.CHEW PO (09:39)
[2022-07-03] MEDS: Ferrous Sulfate 325 MG Tablet PO (09:39)
[2022-07-03] MEDS: Ceftriaxone 1 GM/50 ML BAG IV (09:39)
[2022-07-03] MEDS: 0.9% Saline Lock 10 ML Syringe IV ×2 (10:00→21:46)
[2022-07-03 10:07] LABS: Partial Thromboplast Time 66.6 Seconds (24.1-36.2)
--- NOTE | 2022-07-03 10:11 | CASEMGMT ---
Tertiary facilities in-network with patient's insurance: [facility], [facility], [facility], [facility]
--- NOTE | 2022-07-03 10:25 | PCM.PN.REN ---
Subjective Subjective Sitting on side of bed. Reports feeling better today. Reports shortness of breath improved. No overnight events. Objective Data Objective Data Vital Signs: Vital Signs Temp Pulse Resp BP Pulse Ox O2 Del Method O2 Flow Rate 98.2 F 92 16 134/78 H 96 Room Air 2 07/03/22 09:35 07/03/22 09:35 07/03/22 09:35 07/03/22 09:35 07/03/22 09:35 07/03/22 09:35 07/02/22 14:00 Oxygen Flow Rate (L/min) 2 Oxygen Delivery Method Room Air Weight: 96.4 kg Body Mass Index (BMI) 32.3 Intake & Output: Intake and Output for Last 24 Hours 07/01/22 07/02/22 07/03/22 23:59 23:59 23:59 Intake Total 865 / 1015 929.55 / 929.55 Output Total 150 / 150 0 / 0 Balance 715 / 865 929.55 / 929.55 Lab / Micro Data Result Diagrams: 07/03/22 05:55 07/03/22 05:55 Labs: Laboratory Results - last 24 hr 07/02/22 11:09: POC Glucose 185 H 07/02/22 11:40: Troponin I High Sens 706 H* 07/02/22 13:10: Troponin I High Sens 759 H* 07/02/22 16:07: POC Glucose 197 H 07/02/22 17:46: Troponin I High Sens 694 H* 07/02/22 18:25: PT 14.9, INR 1.2, APTT 34.2 07/02/22 22:24: POC Glucose 192 H 07/03/22 01:05: APTT 189.6 H* 07/03/22 05:55: WBC 9.0, RBC 3.28 L, Hgb 8.1 L, Hct 26.7 L, MCV 81.4, MCH 24.7 L, MCHC 30.3 L, RDW Std Deviation 45.0 H, RDW Coeff of Yanely 15.5 H, Plt Count 272, MPV 10.7, Immature Gran % (Auto) 1.000 H, Neut % (Auto) 64.2, Lymph % (Auto) 19.4, [place] % (Auto) 12.6 H, Eos % (Auto) 2.5, Baso % (Auto) 0.3, Absolute Neuts (auto) 5.8, Absolute Lymphs (auto) 1.74, Nucleated RBC % 0 07/03/22 05:55: Sodium 139, Potassium 3.2 L, Chloride 100, Carbon Dioxide 28.0, Anion Gap 11, BUN 37 H, Creatinine 4.86 H, Estim Creat Clear Calc 12.71, Est GFR (MDRD) Af Amer 15 L, Est GFR (MDRD) Non-Af 13 L, BUN/Creatinine Ratio 7.6 L, Glucose 97, Calcium 7.1 L 07/03/22 06:01: POC Glucose 93 07/03/22 09:45: APTT 66.6 H Micro: Microbiology 07/02/22 16:00 Urine, Clean Catch Legionella Antigen - Final 07/02/22 16:00 Urine, Clean Catch Streptococcus pneumoniae Antigen (M - Final 07/02/22 13:10 Sputum, Expectorated/Coughed Gram Stain - Final 07/02/22 07:00 Nasal Secretion SARS-CoV-2 Antigen (Rapid) - Final Radiography Diagnostic Testing: Radiology Impression Chest CTA 07/02/22 14:50 IMPRESSION: Bilateral pulmonary emboli more prominent in the right lung as described. Small bilateral effusions with infiltrates as described. Electronically Signed: Kelechi Pleitez MD at 15:46 EDT , Rhythm Strip Rhythm Strip: Sinus Rhythm Physical Exam Narrative Alert and oriented x3, no apparent distress S1, S2, RRR Lung sounds clear anteriorly. 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 Outpatient dialysis schedule is Wednesday. He is tolerating dialysis with fluid removal. He has not reached a dry weight yet at this time. We will continue to provide dialysis support while patient is in the hospital. Patient tolerated dialysis yesterday with 2.5 L fluid removal, no acute indication for [employer] today, patient will dialyze tomorrow over 3.5 hours on 3K bath with fluid removal as patient/blood pressure tolerates. - history of anemia of chronic disease and prior to starting dialysis had been following with hematology for Procrit injections. Hemoglobin today 8.1. Patient's hemoglobin at the kidney center on Wednesday was 10. Patient did receive Epogen last week when in the hospital. He will be started on iron and BOLIVAR at the kidney center. Epogen ordered for tomorrow with dialysis. -Potassium 3.2 today. Patient received oral potassium. Patient does not need to follow low potassium diet at this time and reviewed that with him. - Blood pressures acceptable. -Shortness of breath improving and multifactorial: CT chest showed bilateral PE more prominent in right lung, patient is also being treated for pneumonia, but also to note during last hospitalization patient was also diagnosed with influenza A. We will continue to remove fluid with dialysis as patient and blood pressure will tolerate. Patient has been started on IV heparin and IV antibiotics, azithromycin and ceftriaxone. He also received breathing treatment and reports breathing has improved. -Cardiology following, echo ordered for this morning. Possible heart catheterization early next week. - Encourage patient to be up to chair, out of bed for all meals. - discussed plan with Dr. Alcazar
[2022-07-03] MEDS: 0.9% Normal Saline 1,000 ML 15 ML IV (10:28)
--- NOTE | 2022-07-03 11:17 | NURSING ---
Called report to Robbi GREEN in lab technician
[2022-07-03 11:45] LABS: Bedside Glucose 187 mg/dL (74-106)
[2022-07-03] MEDS: Insulin Lispro 100 UNIT/ML INSULN.PEN SC ×3 (12:47→21:44)
--- NOTE | 2022-07-03 12:55 | PCM.PN.CARD ---
Subjective Subjective Seen and evaluated. Elevated troponin noted. Objective Data Vital Signs: Vital Signs Temp Pulse Resp BP Pulse Ox O2 Del Method O2 Flow Rate 98.2 F 80 23 H 134/78 H 96 Room Air 2 07/03/22 09:35 07/03/22 11:10 07/03/22 11:10 07/03/22 09:35 07/03/22 09:35 07/03/22 09:35 07/02/22 14:00 Oxygen Flow Rate (L/min) 2 Oxygen Delivery Method Room Air Weight: 212 lb 8.41 oz Body Mass Index (BMI) 32.3 Intake & Output: Intake and Output for Last 24 Hours 07/01/22 07/02/22 07/03/22 23:59 23:59 23:59 Intake Total 865 / 1015 1430.05 / 1430.05 Output Total 150 / 150 0 / 0 Balance 715 / 865 1430.05 / 1430.05 Lab / Micro Data Result Diagrams: 07/03/22 05:55 07/03/22 05:55 Labs: Laboratory Results - last 24 hr 07/02/22 13:10: Troponin I High Sens 759 H* 07/02/22 16:07: POC Glucose 197 H 07/02/22 17:46: Troponin I High Sens 694 H* 07/02/22 18:25: PT 14.9, INR 1.2, APTT 34.2 07/02/22 22:24: POC Glucose 192 H 07/03/22 01:05: APTT 189.6 H* 07/03/22 05:55: WBC 9.0, RBC 3.28 L, Hgb 8.1 L, Hct 26.7 L, MCV 81.4, MCH 24.7 L, MCHC 30.3 L, RDW Std Deviation 45.0 H, RDW Coeff of [place] 15.5 H, Plt Count 272, MPV 10.7, Immature Gran % (Auto) 1.000 H, Neut % (Auto) 64.2, Lymph % (Auto) 19.4, [place] % (Auto) 12.6 H, Eos % (Auto) 2.5, Baso % (Auto) 0.3, Absolute Neuts (auto) 5.8, Absolute Lymphs (auto) 1.74, Nucleated RBC % 0 07/03/22 05:55: Sodium 139, Potassium 3.2 L, Chloride 100, Carbon Dioxide 28.0, Anion Gap 11, BUN 37 H, Creatinine 4.86 H, Estim Creat Clear Calc 12.71, Est GFR (MDRD) Af Amer 15 L, Est GFR (MDRD) Non-Af 13 L, BUN/Creatinine Ratio 7.6 L, Glucose 97, Calcium 7.1 L 07/03/22 06:01: POC Glucose 93 07/03/22 09:45: APTT 66.6 H 07/03/22 11:20: POC Glucose 187 H Micro: Microbiology 07/02/22 13:10 Sputum, Expectorated/Coughed Gram Stain - Final 07/02/22 13:10 Sputum, Expectorated/Coughed Respiratory Culture - Preliminary Gram negative olga 07/02/22 16:00 Urine, Clean Catch Legionella Antigen - Final 07/02/22 16:00 Urine, Clean Catch Streptococcus pneumoniae Antigen (M - Final Rhythm Strip Rhythm Strip: Sinus Rhythm Cardiology Labs/Tests 07/02/22 18:25: PT 14.9, INR 1.2, APTT 34.2 07/03/22 01:05: APTT 189.6 H* 07/03/22 05:55: WBC 9.0, RBC 3.28 L, Hgb 8.1 L, Hct 26.7 L, MCV 81.4, MCH 24.7 L, MCHC 30.3 L, Plt Count 272, MPV 10.7, Immature Gran % (Auto) 1.000 H, Neut % (Auto) 64.2, Lymph % (Auto) 19.4, [place] % (Auto) 12.6 H, Eos % (Auto) 2.5, Baso % (Auto) 0.3, Absolute Neuts (auto) 5.8, Nucleated RBC % 0 07/03/22 05:55: Sodium 139, Potassium 3.2 L, Chloride 100, Carbon Dioxide 28.0, Anion Gap 11, BUN 37 H, Creatinine 4.86 H, Est GFR (MDRD) Af Amer 15 L, Est GFR (MDRD) Non-Af 13 L, BUN/Creatinine Ratio 7.6 L, Glucose 97, Calcium 7.1 L 07/03/22 09:45: APTT 66.6 H Rhythm: EKG: ECHO: Stress Test: Cardiac Cath: PCI: CT Surgery: Holter monitor: EPS: PPM: CXR: Chest CT Scan: Radiography Diagnostic Testing: Radiology Impression Chest CTA 07/02/22 14:50 IMPRESSION: Bilateral pulmonary emboli more prominent in the right lung as described. Small bilateral effusions with infiltrates as described. Electronically Signed: Kelechi Pleitez MD at 15:46 EDT , Echocardiogram 07/02/22 14:50 Interpretation Summary Normal LV size. Moderate concentric left ventricular hypertrophy. Mild segmental systolic dysfunction (see wall motion). The estimated ejection fraction is 50 %. Stage 1 diastolic dysfunction. Ordering Physician: Edie Chadwick Performed By: Howard Escamilla RCS Physical Exam Const alert, oriented x3 and no apparent distress General Appearance: cooperative HEENT hearing grossly normal bilaterally Head and Scalp: atraumatic Eyes EOMs intact bilaterally Neck General: normal visual inspection Chest inspection of chest normal and palpation of chest normal Resp normal respiratory effort Auscultation: clear to auscultation bilaterally Cardio regular rate, regular rhythm, S1 normal heart sound and S2 normal heart sound Jugular Venous Distention: JVD GI normal to inspection, nondistended, normoactive bowel sounds Extremity normal capillary refill and no pedal edema Peripheral Pulses: Yes pulses 2+ throughout and femoral pulses present Skin no rashes or lesions noted Neuro oriented x3 and CN's II-XII intact bilaterally Psych Appearance: grossly normal and appropriate Assessment & Plan Assessment/Plan (1) Elevated troponin: PLAN: Patient has noted to have elevated troponin which is flat and a CT scan determined that he had pulmonary embolism. I therefore think that the above is secondary to the right ventricular strain and at this time I will defer any cardiac catheterization. Incidental note is also made of the fact that patient underwent a stress test in April of this year which was normal. (2) History of permanent cardiac pacemaker placement: PLAN: Patient is status post cardiac permanent pacemaker implantation. This appears to be functioning well I would not recommend that we make any changes at this time. (3) Essential hypertension: PLAN: Patient has a history of hypertension. The plan will be to continue the same medications with no changes at this particular time.
--- NOTE | 2022-07-03 13:16 | PN_ITS ---
Subjective Subjective Patient seen and examined. He states he feels much better today. He denies fever, chills, shortness of breath is resolved and he denies any chest pain, palpitations, dizziness, nausea or vomiting. He did have a CT of the chest done yesterday which showed evidence of PE so he was started on heparin drip. Objective Data Objective Data Vital Signs: Vital Signs Temp Pulse Resp BP Pulse Ox O2 Del Method O2 Flow Rate 98.2 F 80 23 H 134/78 H 96 Room Air 2 07/03/22 09:35 07/03/22 11:10 07/03/22 11:10 07/03/22 09:35 07/03/22 09:35 07/03/22 09:35 07/02/22 14:00 Oxygen Flow Rate (L/min) 2 Oxygen Delivery Method Room Air Weight: 212 lb 8.41 oz Body Mass Index (BMI) 32.3 Intake & Output: Intake and Output for Last 24 Hours 07/01/22 07/02/22 07/03/22 23:59 23:59 23:59 Intake Total 865 / 1015 1430.05 / 1430.05 Output Total 150 / 150 0 / 0 Balance 715 / 865 1430.05 / 1430.05 Lab / Micro Data Result Diagrams: 07/03/22 05:55 07/03/22 05:55 Labs: Laboratory Results - last 24 hr 07/02/22 13:10: Troponin I High Sens 759 H* 07/02/22 16:07: POC Glucose 197 H 07/02/22 17:46: Troponin I High Sens 694 H* 07/02/22 18:25: PT 14.9, INR 1.2, APTT 34.2 07/02/22 22:24: POC Glucose 192 H 07/03/22 01:05: APTT 189.6 H* 07/03/22 05:55: WBC 9.0, RBC 3.28 L, Hgb 8.1 L, Hct 26.7 L, MCV 81.4, MCH 24.7 L , MCHC 30.3 L, RDW Std Deviation 45.0 H, RDW Coeff of [place] 15.5 H, Plt Count 272, MPV 10.7, Immature Gran % (Auto) 1.000 H, Neut % (Auto) 64.2, Lymph % (Auto) 19.4, [place] % (Auto) 12.6 H, Eos % (Auto) 2.5, Baso % (Auto) 0.3, Absolute Neuts (auto) 5.8, Absolute Lymphs (auto) 1.74, Nucleated RBC % 0 07/03/22 05:55: Sodium 139, Potassium 3.2 L, Chloride 100, Carbon Dioxide 28.0, Anion Gap 11, BUN 37 H, Creatinine 4.86 H, Estim Creat Clear Calc 12.71, Est GFR (MDRD) Af Amer 15 L, Est GFR (MDRD) Non-Af 13 L, BUN/Creatinine Ratio 7.6 L, Glucose 97, Calcium 7.1 L 07/03/22 06:01: POC Glucose 93 07/03/22 09:45: APTT 66.6 H 07/03/22 11:20: POC Glucose 187 H Micro: Microbiology 07/02/22 13:10 Sputum, Expectorated/Coughed Gram Stain - Final 07/02/22 13:10 Sputum, Expectorated/Coughed Respiratory Culture - Preliminary Gram negative olga 07/02/22 16:00 Urine, Clean Catch Legionella Antigen - Final 07/02/22 16:00 Urine, Clean Catch Streptococcus pneumoniae Antigen (M - Final 07/02/22 07:00 Nasal Secretion SARS-CoV-2 Antigen (Rapid) - Final Radiography Diagnostic Testing: Radiology Impression Chest CTA 07/02/22 14:50 IMPRESSION: Bilateral pulmonary emboli more prominent in the right lung as described. Small bilateral effusions with infiltrates as described. Electronically Signed: Kelechi Pleitez MD at 15:46 EDT , Echocardiogram 07/02/22 14:50 Interpretation Summary Normal LV size. Moderate concentric left ventricular hypertrophy. Mild segmental systolic dysfunction (see wall motion). The estimated ejection fraction is 50 %. Stage 1 diastolic dysfunction. Ordering Physician: Edie Chadwick Performed By: Howard Escamilla RCS Rhythm Strip Rhythm Strip: Sinus Rhythm Physical Exam Const alert, oriented x3 and no apparent distress General Appearance: cooperative HEENT normocephalic, head/scalp atraumatic and hearing grossly normal bilaterally Eyes PERRL, EOMs intact bilaterally and conjunctivae normal Neck no lymphadenopathy and supple Resp Resp Narrative: Mildly diminished breath sounds bibasally. No wheezes or crackles. On room air Cardio regular rate, regular rhythm, S1 normal heart sound, S2 normal heart sound and no murmurs GI normal to inspection, nondistended, normoactive bowel sounds, soft to palpation, non-tender and non-distended GI Narrative: AV fistula in left upper extremity with good thrill. Fistula not fully matured. Extremity normal to inspection, full ROM and no clubbing, cyanosis or edema Neuro oriented x3, CN's II-XII intact bilaterally, moves all extremities and no focal motor deficits Sensorium / Orientation: awake and alert Motor Exam: strength 5/5 throughout Psych affect normal Assessment & Plan Assessment/Plan (1) Dyspnea: (2) Pneumonia: (3) Elevated troponin: PLAN: Plan #HYpoxia, likely due to probable post influenza pneumonia and fluid overload as well as PE * CXR showed bibasilar infiltrates. He doesnt wear oxygen at home. * Urine for strep and legionella, as well as sputum cultures ordered * Get blood cultures as well. Titrate oxygen to maintain saturation above 90%. * CTA of the chest was done which did show evidence of PE * he is on heparin drip. He says he has previously had DVT of his upper extremity and was on coumadin * on ceftriaxone and doxycycline * #Pneumonia, probably post influenza: As above. #Elevated troponins. * Patient's initial troponin was more than 700 and trended slightly up. This is the highest troponins have ever been. He denies any chest pain. Cardiology consulted. * CTA chest did confirm PE * cardiology on board. There was a plan for possible cardiac cath, but this was cancelled per cardiology. He just had a stress test in April 2022. * #Pulmonary embolism: as above. #History of complete heart block s/p permanent pacemaker insertion: Follows up with pacemaker clinic on outpatient basis. #ESRD: * S/p kidney transplant with subsequently failed. Now on dialysis. * Last had dialysis 2 days prior to admission and states he took off 1 L. He was just added on dialysis about a week ago after he came in for acute hypoxic respiratory failure and was intubated. He was discharged after about 48 to 72 hours. * Nephrology on board. * for dialysis. * Still on tacrolimus for the failed kidney transplant. Per nephro, this is be ing weaned off slowly. * Type 2 diabetes mellitus: Trulicity held as is nonformulary. Insulin sliding scale. Accu-Cheks ACHS. #Hypertension: On nifedipine DVT prophylaxis: Lovenox renally dosed CODE STATUS: Full code * Charges/Coding Visit Charges Inpatient E&M: 13694 Subs Hosp L2
--- NOTE | 2022-07-03 15:11 | CASEMGMT ---
NORMA SANCHEZ chart review: Patient was admitted 06/23-06/26/22 for acute hypoxic respiratory family. SEE NORMA SANCHEZ assessment from 06/24/22. Patient was setup with HD at [facility] for TTS 0545. Patient did not qualify for home oxygen last admission. Patient returned 07/02/22 for hypoxic. Patient had check home SPO2 of 87%. Patient had elevated troponin, to have heart cath. NORMA SANCHEZ in discuss discharge plans with patient. Patient states he was taking his medications as prescribed. Patient states he returned to [facility] prior to seeing PCP. Patient was attending HD as scheduled. Will montior for home oxygen at discharge. Patient to discharge home with family support and follow-up plans in [place].
--- NOTE | 2022-07-03 15:44 | CHAPLAIN ---
Type of Pastoral Visit _x__ Initial Visit ___ Follow-up Visit ___ On-call Visit ___ General Patient Visit ___ Spiritual Assessment ___ Family Conference ___ Bereavement ___ Rapid Response ___ Code Blue ___ Other (describe below) Pastoral Care Referral From ___ Patient _x__ Family ___ Nurse ___ Physician ___ Cemetery Worker ___ Propulsion Engineer ___ Other (describe below) Sacrament/Intervention ___ Active listening ___ Anointing ___ Pentecostalism ___ Bereavement ___ Communion ___ Ximena exploration ___ ___ Life review ___ Prayer ___ Reconciliation ___ Sacrament of Sick _x__ Supportive presence ___ Wedding ___ Other (describe below) Pastoral Comments offer of presence, prayer, or some emotional support given; 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
[2022-07-03 17:05] LABS: Bedside Glucose 341 mg/dL (74-106)
[2022-07-03] MEDS: HEPARIN/D5w 25,000 UNITS 25,000 UNITS/250 ML IV.SOLN. 11 UNITS CONT INF (18:48)
[2022-07-03 19:16] LABS: Partial Thromboplast Time 60.7 Seconds (24.1-36.2)
[2022-07-03] MEDS: Atorvastatin Calcium 40 MG Tablet PO (21:42)
[2022-07-03] MEDS: Tacrolimus Anhydrous 1 MG Capsule PO (21:42)
[2022-07-04] VITALS (8 sets, daily range): BP systolic 113–144; BP diastolic 55–86; PULSE 69–102; RESP 12–18; TEMP 36.7–37.2; O2SAT 93–96; BMI 33.0
[2022-07-04 01:46] LABS: Bedside Glucose 282 mg/dL (74-106)
[2022-07-04] MEDS: Heparin Injection (Vial) 5,000 UNIT/ML VIAL IV (01:58)
[2022-07-04] MEDS: Ipratropium/Albuterol Sulfate 3 ML AMPUL.NEB INHALATION ×3 (06:46→15:01)
[2022-07-04 07:06] LABS: Bedside Glucose 130 mg/dL (74-106)
[2022-07-04] MEDS: Glimepiride 4 MG Tablet PO (07:51)
[2022-07-04] MEDS: Aspirin 81 MG TAB.CHEW PO (07:51)
[2022-07-04] MEDS: Ferrous Sulfate 325 MG Tablet PO (07:51)
[2022-07-04] MEDS: predniSONE 5 MG Tablet PO (07:52)
[2022-07-04] MEDS: Nepro Liquid 120 ML LIQUID PO ×2 (07:52→14:45)
[2022-07-04] MEDS: Tacrolimus Anhydrous 1 MG Capsule 2 MG PO (07:52)
[2022-07-04] MEDS: NIFEdipine 60 MG Tablet PO (07:52)
[2022-07-04] MEDS: 0.9% Saline Lock 10 ML Syringe IV (07:53)
[2022-07-04] MEDS: Ceftriaxone 1 GM/50 ML BAG IV (07:57)
[2022-07-04 09:21] LABS: Absolute Lymphocyte Count 1.68 X10^3/uL (0.83-4.51); Absolute Neutrophil Count 5.4 X10^3/uL (2.0-7.7); Basophil# 0.04 X10^3/uL; Basophil% 0.5 % (0-1); Eosinophil# 0.37 X10^3/uL; Eosinophils% 4.2 % (0-5); Hematocrit 25.9 % (40-54); Hemoglobin 7.9 g/dL (13.0-16.5); Lymphocyte # 1.68 X10^3/ul (0.83-4.51); Mean Corp Hgb Conc 30.5 g/dL (32-36); Mean Corpuscular Hgb 24.6 pg (27.0-32.0); Mean Corpuscular Volume 80.7 fL (80-94); Mean Platelet Vol. 10.3 fl (6.2-12.0); Monocyte# 1.08 X10^3/uL; Monocyte% 12.2 % (0-10); NRBC Flagged by Analyzer 0 % (0-5); Neutrophil # 5.39 X10^3/uL (2.7-7.7); Neutrophil % 60.7 % (47-70); Platelet Count 307 K/mm3 (150-450); RBC Distribution Width CV 15.7 % (11.6-14.6); RBC Distribution Width SD 45.5 fl (35.1-43.9); Red Blood Count 3.21 M/mm3 (4.6-6.2); White Blood Count 8.9 K/mm3 (4.4-11.0)
[2022-07-04 09:30] LABS: Partial Thromboplast Time 56.5 Seconds (24.1-36.2)
[2022-07-04 09:35] LABS: International Normalized Ratio 1.2; Prothrombin Time (Protime)PT. 14.9 SECONDS (11.7-14.9)
[2022-07-04 09:45] LABS: Anion Gap 11 (5-15); BUN 58 mg/dL (7-18); BUN/Creat Ratio 8.6 RATIO (10-20); Calcium,Total 6.7 mg/dL (8.5-10.1); Chloride 101 mmol/L (98-107); Creatinine, Serum 6.72 mg/dL (0.70-1.30); EST Glomerular Filtration Rate 9 mL/min (>60); Est Glom Filt Rate - Afr Amer 10 mL/min (>60); Estimated Creatinine Clearance 9.19 ml/min; Glucose 164 mg/dL (74-106); Potassium 3.5 mmol/L (3.5-5.1); Sodium Level 135 mmol/L (136-145)
[2022-07-04] MEDS: Epoetin Alfa epbx 10,000 UNITS/ML 20000 UNIT IV (11:22)
[2022-07-04 11:35] LABS: Bedside Glucose 213 mg/dL (74-106)
--- NOTE | 2022-07-04 13:44 | DIALYSIS ---
Hemodialysis x 3hrs 15mins completed. -2600ml UF total. Tx stopped 15min sooner d/t clotting in dialyzer despite pt being on heparin gtt. HAND DEVELOPER Lucas cornejo. Report to Alley GREEN. CVC closed with heparin to each lumen fill volume. See HD flowsheet for full tx details.
--- NOTE | 2022-07-04 13:46 | NURSING ---
per MD, antibiotics getting changed from IV to PO. Will not hang IV Doxycycline at this time.
[2022-07-04] MEDS: Heparin 10,000 UNITS/10 ML Vial IV (13:49)
[2022-07-04] MEDS: HEPARIN/D5w 25,000 UNITS 25,000 UNITS/250 ML IV.SOLN. 12 UNITS CONT INF (14:45)
--- NOTE | 2022-07-04 15:41 | DS.PCM_ITS ---
Providers Date of Admission: 07/02/22 Date of Discharge: 07/04/22 Primary Care Physician: Dr. Sy Sharma MD Consultations 07/02/22 09:55 Consult: Nephrology Routine Consulting Provider: Prabhjot Mancera Reason for Consult: chf EMERGENT Consult: No Notified: Yes Date Notified: 07/02/22 Time Notified: 09:56 Method of Notification: Verbal 07/02/22 10:33 Consult: Nephrology Routine Consulting Provider: Kristina Zapata Reason for Consult: ESRD, needs dialysis EMERGENT Consult: No Notified: Yes Date Notified: 07/02/22 Time Notified: 10:35 Method of Notification: Text 07/02/22 13:44 Consult: Cardiology Routine Consulting Provider: Edie Chadwick Reason for Consult: elevated troponin EMERGENT Consult: No Notified: Yes Date Notified: 07/02/22 Time Notified: 13:44 Method of Notification: Text Reason For Visit: HYPOXIA Diagnosis Discharge Diagnosis (1) Dyspnea: Status: Acute Code(s): R06.00 - Dyspnea, unspecified (2) Pneumonia: Status: Acute Code(s): J18.9 - Pneumonia, unspecified organism (3) Elevated troponin: Status: Acute Code(s): R77.8 - Other specified abnormalities of plasma proteins Plan #HYpoxia, likely due to probable post influenza pneumonia and fluid overload as well as PE * CXR showed bibasilar infiltrates. He doesnt wear oxygen at home. * Urine for strep and legionella, as well as sputum cultures ordered * Get blood cultures as well. Titrate oxygen to maintain saturation above 90%. * CTA of the chest was done which did show evidence of PE * he is on heparin drip. He says he has previously had DVT of his upper extremity and was on coumadin * on ceftriaxone and doxycycline * #Pneumonia, probably post influenza: As above. #Elevated troponins. * Patient's initial troponin was more than 700 and trended slightly up. This is the highest troponins have ever been. He denies any chest pain. Cardiology consulted. * CTA chest did confirm PE * cardiology on board. There was a plan for possible cardiac cath, but this was cancelled per cardiology. He just had a stress test in April 2022. * #Pulmonary embolism: as above. #History of complete heart block s/p permanent pacemaker insertion: Follows up with pacemaker clinic on outpatient basis. #ESRD: * S/p kidney transplant with subsequently failed. Now on dialysis. * Last had dialysis 2 days prior to admission and states he took off 1 L. He was just added on dialysis about a week ago after he came in for acute hypoxic respiratory failure and was intubated. He was discharged after about 48 to 72 hours. * Nephrology on board. * for dialysis. * Still on tacrolimus for the failed kidney transplant. Per nephro, this is being weaned off slowly. * Type 2 diabetes mellitus: Trulicity held as is nonformulary. Insulin sliding scale. Accu-Cheks ACHS. #Hypertension: On nifedipine DVT prophylaxis: Lovenox renally dosed CODE STATUS: Full code * Medications at Discharge Home Medications atorvastatin 40 mg tablet 40 mg PO QHS CHOLESTEROL 06/23/17 dulaglutide 1.5 mg/0.5 mL subcutaneous pen injector 1.5 mg SQ REYNA DIABETES 06/23/17 ferrous sulfate 325 mg (65 mg iron) tablet 325 mg PO DAILY supplement 10/24/18 aspirin 81 mg chewable tablet 81 mg PO DAILY heart health 10/02/20 glimepiride 4 mg tablet 4 mg PO DAILY diabetes 10/02/20 prednisone 5 mg tablet 5 mg PO DAILY steroid 10/02/20 tacrolimus 0.5 mg capsule, immediate-release 2 mg PO DAILY immunosuppresive 10/02/20 nifedipine 60 mg tablet,extended release 24 hr (Procardia XL) 60 mg PO DAILY blood pressure 03/11/21 tacrolimus 1 mg capsule, immediate-release 1 mg PO QHS immunosuppresive 03/11/21 lorazepam 1 mg tablet (Ativan) 1 mg PO TID PRN anxiety #10 tabs 01/27/22 apixaban 5 mg (74 tabs) tablets in a dose pack (Eliquis DVT-PE Treat 30D Start) 5 mg PO BID #74 tabs 07/04/22 doxycycline hyclate 100 mg capsule 100 mg PO BID #10 caps 07/04/22 Hospital Course Operations None Procedures None Summary of Care Provided Minutes Spent on Discharge: 55 Hospital Course: POLINA GANDARA, is a 77 M with a PMH as outlined who presents via the ED with a complaint of shortness of breath. He has a history of ESRD and is s/p renal transplant, on tacrolimus, and subsequently started on hemodialysis. HE was recently admitted for shortness of breath due to fluid overload, and he was intubated and commenced on hemodialysis. He was discharged on 06/26/2022. He presented today with shortness of breath. HE checked his pulse ox and was hypoxic, saturating at 87% on room air. He denied any chest pain, palpitations, dizziness, nausea, vomiting or diarrhea.? He did admit to a cough which was productive of yellow sputum.? Review of systems was otherwise negative. Vitals were BP of 145/72, [place] of 96, RR of 22, temp of 98.6F and he was saturating at 98% on 2L of oxygen. CBC showed wbc of 10, hb of 8.5 and platelets of 232. CHemistry showed sodium of 138, potassium of 3.4 nad Cr of 6.78. BUN was 61. Troponin was 754.CXR showed patchy bibasilar airspace disease. He was admitted to be managed for hypoxia in setting of ESRD, likely due to fluid overload and probable pneumonia based on CXR findings. Of note, he was recently managed for influenza A infection during his previous admission, and so there is a possibility of post influenza pneumonia also. He was started on IV ceftriaxone and doxycycline. CTA of the chest was done o/a of elevated troponins and found to have PE. HE was started on heparin drip. Cardiology was consulted and opted to hold off on cardiac cath in light of the elevated troponin being explained by the PE. He was started on heparin drip. His symptoms improved. He remained stable and was weaned off oxygen. Per discussion with nephrology and pharmacy, patient was discharged home on PO doxycycline and also discharged on eliquis to treat PE. He was discharged home on 07/04/2022 and is to follow up with his PCP and nephrology as well as cardiology. Patient seen and examined prior to discharge. HE had no active complaints and felt well. Review of systems was otherwise negative. Labs and vitals reviewed. Home meds reviewed and reconciled. Physical Exam Const alert, oriented x3 and no apparent distress General Appearance: cooperative HEENT normocephalic, head/scalp atraumatic and hearing grossly normal bilaterally Mouth: oral and palatal mucosa normal Eyes PERRL, EOMs intact bilaterally and conjunctivae normal Neck no lymphadenopathy and supple Resp Resp Narrative: Mildly diminished breath sounds bibasally. No wheezes or crackles. On room air Cardio regular rate, regular rhythm, S1 normal heart sound, S2 normal heart sound and no murmurs GI normal to inspection, nondistended, normoactive bowel sounds, soft to palpation, non-tender and non-distended GI Narrative: AV fistula in left upper extremity with good thrill. Fistula not fully matured. Extremity normal to inspection, full ROM and no clubbing, cyanosis or edema Skin no rashes or lesions noted Neuro oriented x3, CN's II-XII intact bilaterally, moves all extremities and no focal motor deficits Sensorium / Orientation: awake and alert Motor Exam: strength 5/5 throughout Psych affect normal Weight / BMI Weight Weight: 216 lb 14.958 oz Body Mass Index (BMI) 33.0 ABG / Lab / Microbiology Data Result Diagrams: 07/04/22 08:40 07/04/22 08:40 Laboratory: Laboratory Results - last 24 hr 07/03/22 16:37: POC Glucose 341 H 07/03/22 18:44: APTT 60.7 H 07/03/22 21:35: POC Glucose 282 H 07/04/22 00:43: APTT 48.0 H 07/04/22 06:38: POC Glucose 130 H 07/04/22 08:40: WBC 8.9, RBC 3.21 L, Hgb 7.9 L, Hct 25.9 L, MCV 80.7, MCH 24.6 L , MCHC 30.5 L, RDW Std Deviation 45.5 H, RDW Coeff of Yanely 15.7 H, Plt Count 307, MPV 10.3, Immature Gran % (Auto) 3.400 H, Neut % (Auto) 60.7, Lymph % (Auto) 19.0, [place] % (Auto) 12.2 H, Eos % (Auto) 4.2, Baso % (Auto) 0.5, Absolute Neuts (auto) 5.4, Absolute Lymphs (auto) 1.68, Nucleated RBC % 0 07/04/22 08:40: Sodium 135 L, Potassium 3.5, Chloride 101, Carbon Dioxide 23.0, Anion Gap 11, BUN 58 H, Creatinine 6.72 H, Estim Creat Clear Calc 9.19, Est GFR (MDRD) Af Amer 10 L, Est GFR (MDRD) Non-Af 9 L, BUN/Creatinine Ratio 8.6 L, Glucose 164 H, Calcium 6.7 L 07/04/22 08:40: APTT 56.5 H 07/04/22 08:40: PT 14.9, INR 1.2 07/04/22 11:07: POC Glucose 213 H Microbiology: Microbiology 07/02/22 13:10 Sputum, Expectorated/Coughed Gram Stain - Final 07/02/22 13:10 Sputum, Expectorated/Coughed Respiratory Culture - Final Enterobacter cloacae complex 07/02/22 11:45 Blood Culture (Wb) - Left Forearm Blood Culture - Preliminary No growth in 48 hours. 07/02/22 11:40 Blood Culture (Wb) - Anticubital Left Blood Culture - Preliminary No growth in 48 hours. 07/02/22 16:00 Urine, Clean Catch Legionella Antigen - Final 07/02/22 16:00 Urine, Clean Catch Streptococcus pneumoniae Antigen (M - Final 07/02/22 07:00 Nasal Secretion SARS-CoV-2 Antigen (Rapid) - Final D/C Instructions Discharge Diet: Low fat / Low cholesterol Discharge Activity: Return to Normal Activity Weight Bearing Status: Weight bearing as tolerated Call your doctor if you observe: Fever of 101 or Higher, Shortness of breath, Dizziness, Swelling in the ankles, Chest pain and Increased palpitations (irregular heartbeat) Meaningful Use Info Meaningful Use Diagnoses (Choose all that apply): VTE VTE Anticoag overlap given w/in hospital stay or rx'd at dc?: Yes Pt receive overlap for 5 days?: No Reason overlap not ordered, prescribed, or given for 5 days: Treatment Not Indic ated Discharge Plan Admission Admit Date/Time: 07/02/22 08:34 Primary Reason for Your Visit: pneumonia, PE Attending Provider: Belen Alcazar Primary Care Provider: Sy Sharma Chi Consulting Providers: Kristina Zapata ; Edie Chadwick ; Prabhjot Mancera Instructions Patient Instructions: Pulmonary Embolism, ED Pneumonia (Adult) Discharge Orders/Prescriptions Prescriptions: New Eliquis DVT-PE Treat 30D Start 5 mg (74 tabs) tablets,dose pack 5 mg PO BID Qty: 74 0RF Rx Instructions: take 10mg (2 tabs twice daily) for 7 days (till 07/10/2022), then continue with 5mg (one tablet) twice daily doxycycline hyclate 100 mg capsule 100 mg PO BID Qty: 10 0RF Continued aspirin 81 mg tablet,chewable 81 mg PO DAILY glimepiride 4 mg tablet 4 mg PO DAILY prednisone 5 mg tablet 5 mg PO DAILY tacrolimus 0.5 mg capsule 2 mg PO DAILY atorvastatin 40 MG tablet 40 mg PO QHS dulaglutide 1.5 MG/0.5 ML pen injector 1.5 mg SQ REYNA Rx Instructions: takes on Wednesday ferrous sulfate 325 MG tablet 325 mg PO DAILY nifedipine [Procardia XL] 60 mg Tablet Extended Release 24hr 60 mg PO DAILY Hold Instructions: CHECK home BP and if running > 140 SBP restart tacrolimus 1 mg Capsule 1 mg PO QHS lorazepam [Ativan] 1 mg tablet 1 mg PO TID PRN (Reason: anxiety) Qty: 10 0RF Referrals / Follow Up: Aidan Lin MD [Med Staff - Active Staff] - Within 2 Weeks Prabhjot Mancera MD [Med Staff - Consulting] - Within 2 Weeks Sy Sharma Chi, MD [Primary Care Provider] - Within 1 Week Disposition Disposition (needs filled in before D/C Order can be placed): Home, Self Care Charges/Coding Visit Charges Inpatient E&M: 70560 Disch Hosp >30min
[2022-07-04] MEDS: Doxycycline 100 MG CAPSULE PO (15:51)
--- NOTE | 2022-07-04 16:03 | PN.RENAL_ITS ---
Subjective Subjective Following for ESRD. The patient reports that his breathing is back to usual baseline. He denies chest pain, nausea, vomiting. Objective Data Objective Data Vital Signs: Vital Signs Temp Pulse Resp BP Pulse Ox O2 Del Method O2 Flow Rate 98.8 F 102 H 16 144/73 H 93 Room Air 2 07/04/22 13:26 07/04/22 13:26 07/04/22 13:26 07/04/22 13:26 07/04/22 08:40 07/04/22 13:26 07/02/22 14:00 Oxygen Flow Rate (L/min) 2 Oxygen Delivery Method Room Air Weight: 98.4 kg Body Mass Index (BMI) 33.0 Intake & Output: Intake and Output for Last 24 Hours 07/02/22 07/03/22 07/04/22 23:59 23:59 23:59 Intake Total 865 / 1015 1093.83 / 1093.83 Output Total 150 / 150 0 / 0 2600 / 2600 Balance 715 / 865 -1506.17 / -1506.17 Lab / Micro Data Result Diagrams: 07/04/22 08:40 07/04/22 08:40 Labs: Laboratory Results - last 24 hr 07/03/22 16:37: POC Glucose 341 H 07/03/22 18:44: APTT 60.7 H 07/03/22 21:35: POC Glucose 282 H 07/04/22 00:43: APTT 48.0 H 07/04/22 06:38: POC Glucose 130 H 07/04/22 08:40: WBC 8.9, RBC 3.21 L, Hgb 7.9 L, Hct 25.9 L, MCV 80.7, MCH 24.6 L , MCHC 30.5 L, RDW Std Deviation 45.5 H, RDW Coeff of Yanely 15.7 H, Plt Count 307, MPV 10.3, Immature Gran % (Auto) 3.400 H, Neut % (Auto) 60.7, Lymph % (Auto) 19.0, [place] % (Auto) 12.2 H, Eos % (Auto) 4.2, Baso % (Auto) 0.5, Absolute Neuts (auto) 5.4, Absolute Lymphs (auto) 1.68, Nucleated RBC % 0 07/04/22 08:40: Sodium 135 L, Potassium 3.5, Chloride 101, Carbon Dioxide 23.0, Anion Gap 11, BUN 58 H, Creatinine 6.72 H, Estim Creat Clear Calc 9.19, Est GFR (MDRD) Af Amer 10 L, Est GFR (MDRD) Non-Af 9 L, BUN/Creatinine Ratio 8.6 L, Glucose 164 H, Calcium 6.7 L 07/04/22 08:40: APTT 56.5 H 07/04/22 08:40: PT 14.9, INR 1.2 07/04/22 11:07: POC Glucose 213 H Micro: Microbiology 07/02/22 13:10 Sputum, Expectorated/Coughed Gram Stain - Final 07/02/22 13:10 Sputum, Expectorated/Coughed Respiratory Culture - Final Enterobacter cloacae complex 07/02/22 11:45 Blood Culture (Wb) - Left Forearm Blood Culture - Preliminary No growth in 48 hours. 07/02/22 11:40 Blood Culture (Wb) - Anticubital Left Blood Culture - Preliminary No growth in 48 hours. 07/02/22 16:00 Urine, Clean Catch Legionella Antigen - Final 07/02/22 16:00 Urine, Clean Catch Streptococcus pneumoniae Antigen (M - Final 07/02/22 07:00 Nasal Secretion SARS-CoV-2 Antigen (Rapid) - Final Rhythm Strip Rhythm Strip: Sinus Rhythm Physical Exam Narrative Alert and oriented x3, no apparent distress S1, S2, RRR Lung crackles at bases bilaterally Abdomen is soft, nontender No edema noted bilateral lower legs AV fistula positive thrill and bruit Tunneled HD catheter dressing clean, dry and intact Assessment & Plan Assessment/Plan (1) ESRD (end stage renal disease): (2) Pneumonia: (3) Anemia of chronic renal failure, stage 4 (severe): PLAN: Plan - 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 Outpatient dialysis schedule is Wednesday. He is tolerating dialysis with fluid removal. He has not reached a dry weight yet at this time. We will continue to provide dialysis support while patient is in the hospital. 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 - history of anemia of chronic disease and prior to starting dialysis had been following with hematology for Procrit injections. Hemoglobin today 8.1. Patient's hemoglobin at the kidney center on Wednesday was 10. Patient did receive Epogen last week when in the hospital. He will be started on iron and BOLIVAR at the kidney center. Epogen ordered for tomorrow with dialysis. -Potassium 3.2 today. Patient received oral potassium. Patient does not need to follow low potassium diet at this time and reviewed that with him. - Blood pressures acceptable. -Shortness of breath improving and multifactorial: CT chest showed bilateral PE more prominent in right lung, patient is also being treated for pneumonia, but also to note during last hospitalization patient was also diagnosed with influenza A. We will continue to remove fluid with dialysis as patient and blood pressure will tolerate. Patient has been started on IV heparin and IV antibiotics, azithromycin and ceftriaxone. He also received breathing treatment and reports breathing has improved. -Cardiology following, echo ordered for this morning. Possible heart catheterization early next week. - Encourage patient to be up to chair, out of bed for all meals. - discussed plan with Dr. Alcazar
== END 2022-07-04 16:37 | disposition home or self-care (01) | DRG 175 ==
LOC: ED 08:45 → PCU 08:53
PROVIDERS: Emergency Medicine; Admitting Provider Student in an Organized Health Care Education/Training Program; Emergency Provider Emergency Medicine; PCP Family Medicine Geriatric Medicine; Visit Provider Student in an Organized Health Care Education/Training Program
DX: I26.99 Other pulmonary embolism without acute cor pulmonale (principal); J10.08 Influenza due to other identified influenza virus with other specified pneumonia; J12.89 Other viral pneumonia; N18.6 End stage renal disease; T86.12 Kidney transplant failure; I12.0 Hypertensive chronic kidney disease with stage 5 chronic kidney disease or end stage renal disease; D63.1 Anemia in chronic kidney disease; Z99.2 Dependence on renal dialysis; E11.22 Type 2 diabetes mellitus with diabetic chronic kidney disease; E78.00 Pure hypercholesterolemia, unspecified; E87.6 Hypokalemia; X58.XXXA Exposure to other specified factors, initial encounter; B95.2 Enterococcus as the cause of diseases classified elsewhere; R09.02 Hypoxemia; Z95.0 Presence of cardiac pacemaker; Z79.82 Long term (current) use of aspirin; Z79.84 Long term (current) use of oral hypoglycemic drugs; Z79.899 Other long term (current) drug therapy; Z87.891 Personal history of nicotine dependence
CPT/HCPCS: 36415; 71046; 71275; 80048; 82962; 83735; 84100; 84484; 85025; 85610; 85730; 87040; 87070; 87077; 87186; 87205; 87449; 87811; 90937; 93005; 93308; 94640; 97116; 97162; 97165; 99283; J7030; J7050; Q9957; Q9967; A4216; C1769; C1894; G0257; Q5106

== ENCOUNTER 2022-07-06 06:16 | Inpatient (IN) | payer OTHER, MEDICARE, SELFPAY ==
[2022-07-06] VITALS (33 sets, daily range): BP systolic 95–190; BP diastolic 47–91; PULSE 77–130; RESP 14–41; TEMP 36.3–37.2; O2SAT 91–100; BMI 33.5; BMI 32.5
[2022-07-06 06:29] LABS: Absolute Lymphocyte Count 4.42 X10^3/uL (0.83-4.51); Absolute Neutrophil Count 8.9 X10^3/uL (2.0-7.7); Basophil# 0.12 X10^3/uL; Basophil% 0.7 % (0-1); Eosinophil# 0.63 X10^3/uL; Eosinophils% 3.8 % (0-5); Hematocrit 32.5 % (40-54); Hemoglobin 9.6 g/dL (13.0-16.5); Lymphocyte # 4.42 X10^3/ul (0.83-4.51); Lymphocyte % 26.7 % (19-41); Mean Corp Hgb Conc 29.5 g/dL (32-36); Mean Corpuscular Hgb 24.8 pg (27.0-32.0); Mean Platelet Vol. 10.9 fl (6.2-12.0); Monocyte# 2.02 X10^3/uL; Monocyte% 12.2 % (0-10); NRBC Flagged by Analyzer 0.3 % (0-5); Neutrophil # 8.87 X10^3/uL (2.7-7.7); Neutrophil % 53.6 % (47-70); POSITIVE DIFFERENTIAL YES; Platelet Count 419 K/mm3 (150-450); RBC Distribution Width CV 16.4 % (11.6-14.6); RBC Distribution Width SD 47.7 fl (35.1-43.9); Red Blood Count 3.87 M/mm3 (4.6-6.2); White Blood Count 16.6 K/mm3 (4.4-11.0)
[2022-07-06] MEDS: LORazepam 2 MG/ML Syringe 1 MG IV (06:32)
--- NOTE | 2022-07-06 06:35 | RAD_ITS ---
INDICATION: dyspnea EXAMINATION/TECHNIQUE: X-RAY - AP view of chest COMPARISON: Two-view chest x-ray from 07/02/2022 FINDINGS: LINES/DEVICES: Left central line tip at mid SVC. Left AICD in place. LUNGS: Persistent patchy bilateral pulmonary airspace opacities, slightly worsening on the right. Mildly elevated right hemidiaphragm again noted. No sizable pleural effusion. No detectable pneumothorax. MEDIASTINUM AND CARDIOVASCULAR STRUCTURES: Heart size within normal limits for imaging technique. Atherosclerotic calcifications along aorta. BONES AND SOFT TISSUES: Skeletal degenerative changes. RAD/Chest 1 View (Portable) IMPRESSION: Persistent bilateral pulmonary infiltrate, slightly worsening on the right. Electronically Signed: Yash Torres MD at 6:58 EDT ,
[2022-07-06] MEDS: Captopril 12.5 MG Tablet PO (06:39)
[2022-07-06] MEDS: Nitroglycerin SL (ED/IMG/CATH) 0.4 MG TABLET SL (06:39)
[2022-07-06 06:43] LABS: Differential Indicated SCAN CRITERIA MET
[2022-07-06 06:50] LABS: Anion Gap 11 (5-15); BUN 44 mg/dL (7-18); BUN/Creat Ratio 6.7 RATIO (10-20); Calcium,Total 7.5 mg/dL (8.5-10.1); Chloride 101 mmol/L (98-107); Creatinine, Serum 6.53 mg/dL (0.70-1.30); EST Glomerular Filtration Rate 9 mL/min (>60); Est Glom Filt Rate - Afr Amer 11 mL/min (>60); Estimated Creatinine Clearance 9.46 ml/min; Glucose 176 mg/dL (74-106); Phosphorus 4.2 mg/dL (2.5-4.9); Potassium 4.6 mmol/L (3.5-5.1); Sodium Level 135 mmol/L (136-145)
--- NOTE | 2022-07-06 07:10 | EDS_ITS ---
HPI History of Present Illness Chief Complaint: Shortness of Breath [facility] Medical History Anemia ARF (acute renal failure) Back pain Bradycardia Cardiology follow-up encounter Central line complication Chronic kidney disease, stage IV (severe) Diabetes DM2 (diabetes mellitus, type 2) DVT (deep venous thrombosis) Essential hypertension Former smoker Gastric reflux High cholesterol High degree atrioventricular block History of complete heart block History of echocardiogram History of pacemaker History of renal disease History of steroid therapy History of stress test Hyperlipidemia Hypertensive urgency Kidney transplant candidate (01/31/19) Kidney transplant complication MRSA infection Pre-syncope Second degree heart block Type 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 Wears glasses Home Medications atorvastatin 40 mg tablet 40 mg PO QHS CHOLESTEROL 06/23/17 [History Last Taken 03/10/21 15:00] dulaglutide 1.5 mg/0.5 mL subcutaneous pen injector 1.5 mg SQ REYNA DIABETES 06/23/17 [History Last Taken 03/09/21] ferrous sulfate 325 mg (65 mg iron) tablet 325 mg PO DAILY supplement 10/24/18 [History Last Taken 03/10/21 09:00] aspirin 81 mg chewable tablet 81 mg PO DAILY heart health 10/02/20 [History Last Taken 03/10/21 09:00] glimepiride 4 mg tablet 4 mg PO DAILY diabetes 10/02/20 [History Last Taken 03/10/21 09:00] prednisone 5 mg tablet 5 mg PO DAILY steroid 10/02/20 [History Last Taken 03/10/21 09:00] tacrolimus 0.5 mg capsule, immediate-release 2 mg PO DAILY immunosuppresive 10/02/20 [History Last Taken 03/10/21 15:00] nifedipine 60 mg tablet,extended release 24 hr (Procardia XL) 60 mg PO DAILY blood pressure 03/11/21 [History Last Taken Unknown] tacrolimus 1 mg capsule, immediate-release 1 mg PO QHS immunosuppresive 03/11/21 [History Last Taken 03/10/21] lorazepam 1 mg tablet (Ativan) 1 mg PO TID PRN anxiety #10 tabs 01/27/22 [Rx Last Taken Unknown] apixaban 5 mg (74 tabs) tablets in a dose pack (Eliquis DVT-PE Treat 30D Start) 5 mg PO BID #74 tabs 07/04/22 [Rx Last Taken Unknown] doxycycline hyclate 100 mg capsule 100 mg PO BID #10 caps 07/04/22 [Rx Last Taken Unknown] Allergy/AdvReac Type Severity Reaction Status Date / Time No Known Allergies Allergy Verified 07/06/22 06:22 Family History Father Pneumonia Mother CVA (cerebral vascular accident) Surgical History History of permanent cardiac pacemaker placement (03/11/21) Renal transplant recipient S/P arteriovenous (AV) fistula creation S/P colonoscopy Status post kidney transplant [place] teeth removed Social History household members: spouse Smoking Status: Former smoker how long ago did patient quit smoking: Quit 1993, 0.5 pk/day until quit. second hand exposure: Yes alcohol intake: current alcohol intake frequency: a few times a month substance use type: does not use EXAM Physical Exam Const Vital Signs: 07/06/22 06:17 07/06/22 06:39 07/06/22 06:41 Temperature 97.9 F Temperature Source Axillary Pulse Rate 123 H 115 H 113 H Respiratory Rate 35 H 36 H Respiratory Effort Respiratory Depth Respiratory Pattern Blood Pressure 190/91 H 155/80 H 155/80 H Blood Pressure Mean 124 105 Pulse Ox 99 100 Oxygen Delivery Method Bi-pap Bi-pap Fraction of Inspired Oxygen (FIO2) 07/06/22 06:16 07/06/22 06:16 07/06/22 06:49 Temperature Temperature Source Pulse Rate 130 H Respiratory Rate 39 H Respiratory Effort Short of Breath Labored Accessory Muscle Use Respiratory Depth Deep Respiratory Pattern Tachypnea Tachypnea Blood Pressure Blood Pressure Mean Pulse Ox 100 100 Oxygen Delivery Method Bi-pap Bi-pap Fraction of Inspired Oxygen (FIO2) 60 60 60 07/06/22 06:53 Temperature Temperature Source Pulse Rate 115 H Respiratory Rate 41 H Respiratory Effort Respiratory Depth Respiratory Pattern Blood Pressure 124/71 H Blood Pressure Mean 88 Pulse Ox 99 Oxygen Delivery Method Bi-pap Fraction of Inspired Oxygen (FIO2) 60 MDM MDM Lab Data Labs: Laboratory Results - last 24 hr 07/06/22 07/06/22 06:20 06:20 WBC 16.6 H RBC 3.87 L Hgb 9.6 L Hct 32.5 L MCV 84.0 MCH 24.8 L MCHC 29.5 L RDW Std Deviation 47.7 H RDW Coeff of Yanely 16.4 H Plt Count 419 MPV 10.9 Immature Gran % (Auto) 3.000 H Neut % (Auto) 53.6 Lymph % (Auto) 26.7 [place] % (Auto) 12.2 H Eos % (Auto) 3.8 Baso % (Auto) 0.7 Absolute Neuts (auto) 8.9 H Absolute Lymphs (auto) 4.42 Nucleated RBC % 0.3 Sodium 135 L Potassium 4.6 Chloride 101 Carbon Dioxide 23.0 Anion Gap 11 BUN 44 H Creatinine 6.53 H Estim Creat Clear Calc 9.46 Est GFR (MDRD) Af Amer 11 L Est GFR (MDRD) Non-Af 9 L BUN/Creatinine Ratio 6.7 L Glucose 176 H Calcium 7.5 L Phosphorus 4.2 Magnesium 2.0 Radiography Diagnostic Testing: Clinical Impression(s) from Imaging Studies Chest X-Ray 07/06/22 06:35 IMPRESSION: Persistent bilateral pulmonary infiltrate, slightly worsening on the right. Electronically Signed: Yash Torres MD at 6:58 EDT , Discharge Plan Triage Chief Complaint: Shortness of Breath ED Provider: Chalo Correia Dx/Rx/DC Orders Clinical Impression: Acute respiratory failure with hypoxia, Right lower lobe pneumonia, Chronic kidney disease with end stage renal failure on dialysis Prescriptions: No Action aspirin 81 mg tablet,chewable 81 mg PO DAILY glimepiride 4 mg tablet 4 mg PO DAILY prednisone 5 mg tablet 5 mg PO DAILY tacrolimus 0.5 mg capsule 2 mg PO DAILY atorvastatin 40 MG tablet 40 mg PO QHS dulaglutide 1.5 MG/0.5 ML pen injector 1.5 mg SQ REYNA Rx Instructions: takes on Wednesday ferrous sulfate 325 MG tablet 325 mg PO DAILY nifedipine [Procardia XL] 60 mg Tablet Extended Release 24hr 60 mg PO DAILY Hold Instructions: CHECK home BP and if running > 140 SBP restart tacrolimus 1 mg Capsule 1 mg PO QHS lorazepam [Ativan] 1 mg tablet 1 mg PO TID PRN (Reason: anxiety) Qty: 10 0RF Eliquis DVT-PE Treat 30D Start 5 mg (74 tabs) tablets,dose pack 5 mg PO BID Qty: 74 0RF Rx Instructions: take 10mg (2 tabs twice daily) for 7 days (till 07/10/2022), then continue with 5mg (one tablet) twice daily doxycycline hyclate 100 mg capsule 100 mg PO BID Qty: 10 0RF Primary Care Provider: Sy Sharma Chi Referrals: Sy Sharma Chi, MD [Primary Care Provider] - Disposition Disposition: Acute Care Hospital [facility]
--- NOTE | 2022-07-06 07:10 | EX.ED.DYSGE1 ---
HPI History of Present Illness Chief Complaint: Shortness of Breath Narrative Narrative: Patient is a [age]-year-old male with past medical history of end-stage renal disease on dialysis. He was recently admitted to the hospital roughly 2 weeks ago secondary for fluid overload leading to respiratory distress and failure requiring intubation. He returned home but then arrived back to the hospital approximately 5 days ago secondary to repeat respiratory distress which at that time was found to have pulmonary emboli and was admitted and discharged on Wednesday on Eliquis and doxycycline. He reports that he felt fine on Wednesday but awoke this morning with increased shortness of breath and secondary to this EMS was called. EMS states when they arrived patient was working to breathe and satting in the mid 80s on room air. Patient does not typically require supplemental oxygen. Therefore the return of his shortness of breath and hypoxia he was brought to the hospital for evaluation [facility] Medical History Anemia ARF (acute renal failure) Back pain Bradycardia Cardiology follow-up encounter Central line complication Chronic kidney disease, stage IV (severe) Diabetes DM2 (diabetes mellitus, type 2) DVT (deep venous thrombosis) Essential hypertension Former smoker Gastric reflux High cholesterol High degree atrioventricular block History of complete heart block History of echocardiogram History of pacemaker History of renal disease History of steroid therapy History of stress test Hyperlipidemia Hypertensive urgency Kidney transplant candidate (01/31/19) Kidney transplant complication MRSA infection Pre-syncope Second degree heart block Type 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 Wears glasses Home Medications atorvastatin 40 mg tablet 40 mg PO QHS CHOLESTEROL 06/23/17 [History Last Taken 03/10/21 15:00] dulaglutide 1.5 mg/0.5 mL subcutaneous pen injector 1.5 mg SQ REYNA DIABETES 06/23/17 [History Last Taken 03/09/21] ferrous sulfate 325 mg (65 mg iron) tablet 325 mg PO DAILY supplement 10/24/18 [History Last Taken 03/10/21 09:00] aspirin 81 mg chewable tablet 81 mg PO DAILY heart health 10/02/20 [History Last Taken 03/10/21 09:00] glimepiride 4 mg tablet 4 mg PO DAILY diabetes 10/02/20 [History Last Taken 03/10/21 09:00] prednisone 5 mg tablet 5 mg PO DAILY steroid 10/02/20 [History Last Taken 03/10/21 09:00] tacrolimus 0.5 mg capsule, immediate-release 2 mg PO DAILY immunosuppresive 10/02/20 [History Last Taken 03/10/21 15:00] nifedipine 60 mg tablet,extended release 24 hr (Procardia XL) 60 mg PO DAILY blood pressure 03/11/21 [History Last Taken Unknown] tacrolimus 1 mg capsule, immediate-release 1 mg PO QHS immunosuppresive 03/11/21 [History Last Taken 03/10/21] lorazepam 1 mg tablet (Ativan) 1 mg PO TID PRN anxiety #10 tabs 01/27/22 [Rx Last Taken Unknown] apixaban 5 mg (74 tabs) tablets in a dose pack (Eliquis DVT-PE Treat 30D Start) 5 mg PO BID #74 tabs 07/04/22 [Rx Last Taken Unknown] doxycycline hyclate 100 mg capsule 100 mg PO BID #10 caps 07/04/22 [Rx Last Taken Unknown] Allergy/AdvReac Type Severity Reaction Status Date / Time No Known Allergies Allergy Verified 07/06/22 06:22 Family History Father Pneumonia Mother CVA (cerebral vascular accident) Surgical History History of permanent cardiac pacemaker placement (03/11/21) Renal transplant recipient S/P arteriovenous (AV) fistula creation S/P colonoscopy Status post kidney transplant [place] teeth removed Social History household members: spouse Smoking Status: Former smoker how long ago did patient quit smoking: Quit 1993, 0.5 pk/day until quit. second hand exposure: Yes alcohol intake: current alcohol intake frequency: a few times a month substance use type: does not use ROS ROS ED Constitutional Constitutional ED: Denies chills or fever(s) ENT ENT ED: Denies sore throat Cardiovascular Cardiovascular: Denies chest pain Respiratory/Chest Respiratory/Chest: Reports cough and dyspnea Gastrointestinal Gastrointestinal: Denies abdominal pain, diarrhea, nausea or vomiting Genitourinary Genitourinary ED: Denies dysuria Musculoskeletal Musculoskeletal: Denies myalgias Integumentary Denies rash Neurologic Neurologic: Denies headache(s) Psychiatric Psychiatric: Reports anxiety Hematologic/Lymphatic Hematologic/Lymphatic: Reports easy bleeding and easy bruising EXAM Physical Exam Const Vital Signs: 07/06/22 06:17 07/06/22 06:39 07/06/22 06:41 Temperature 97.9 F Temperature Source Axillary Pulse Rate 123 H 115 H 113 H Respiratory Rate 35 H 36 H Respiratory Effort Respiratory Depth Respiratory Pattern Blood Pressure 190/91 H 155/80 H 155/80 H Blood Pressure Mean 124 105 Pulse Ox 99 100 Oxygen Delivery Method Bi-pap Bi-pap Fraction of Inspired Oxygen (FIO2) 07/06/22 06:16 07/06/22 06:16 07/06/22 06:49 Temperature Temperature Source Pulse Rate 130 H Respiratory Rate 39 H Respiratory Effort Short of Breath Labored Accessory Muscle Use Respiratory Depth Deep Respiratory Pattern Tachypnea Tachypnea Blood Pressure Blood Pressure Mean Pulse Ox 100 100 Oxygen Delivery Method Bi-pap Bi-pap Fraction of Inspired Oxygen (FIO2) 60 60 60 07/06/22 06:53 07/06/22 07:18 Temperature 98 F Temperature Source Temporal Pulse Rate 115 H 108 H Respiratory Rate 41 H 30 H Respiratory Effort Respiratory Depth Respiratory Pattern Blood Pressure 124/71 H 98/64 Blood Pressure Mean 88 75 Pulse Ox 99 97 Oxygen Delivery Method Bi-pap Bi-pap Fraction of Inspired Oxygen (FIO2) 60 Positive well nourished, well developed and obese Constitutional Narrative: Patient is in respiratory distress with tachypnea and accessory muscle use General Appearance ED: well developed Nutritional Appearance: obese HEENT HEENT Narrative: No tongue or lip swelling no oral lesions no airway edema or compromise Eyes PERRL and EOMs intact bilaterally Neck supple and no JVD Chest Wall palpation of chest normal Chest Narrative: Dialysis catheter in place in the left upper chest wall without surrounding soft tissue changes to suggest infection Resp Resp Narrative: Patient is in respiratory distress with tachypnea and accessory muscle use breath sounds are diminished throughout with diffuse rhonchi and crackles in the bilateral bases Cardio regular rhythm Rate: tachycardic GI normal to inspection, nondistended, normoactive bowel sounds, non-tender, non-distended and no masses GI Narrative: No voluntary guarding or rigidity no pulsatile mass Auscultation: normoactive bowel sounds Palpation: soft Extremity Extremity Narrative: Trace edema to the bilateral lower extremities that is equal in Fistula in place in the right upper arm with palpable thrill and good bruit Neuro oriented x3 and CN's II-XII intact bilaterally Sensorium / Orientation: alert Psych Psych Narrative: Patient has a nervous/anxious affect Skin no rashes or lesions noted MDM MDM MDM Narrative Medical decision making narrative: Patient presented to the ER in respiratory distress with tachypnea and accessory muscle use and EMS reported a room air pulse ox of 85%. His lungs were coarse throughout and with his respiratory distress he was placed on BiPAP as there was concern he had fluid overload as a cause of his symptoms. Secondary to this he was also giving sublingual nitro and captopril to reduce preload and afterload and as he was significantly hypertensive at 190/91 we do have room to treat. Chest x-ray showed vascular congestion with possible right lower lobe infiltrate versus pulmonary infarct as he does have a recent history of pulmonary emboli. Patient had a sputum culture at his last visit and did grow Enterobacter and sensitivity shows it is not sensitive to doxycycline which she was sent home on. He also is elevation to his white blood cell count from initial discharge level and this is concerning for infectious process. Therefore patient had blood cultures obtained and based on the sensitivity from the recent sputum culture was started on 2 g of cefepime. As he has need for persistent BiPAP because of his hypoxia and work of breathing he will need to be admitted to the ICU. The patient and family were instructed of his test results and the need for admission and are agreeable to it. Medicine was contacted and they do agree to admit the patient at this time to the unit and they will contact nephrology to discuss need for repeat dialysis. History & Record Review Discussion w/independent historian: EMS personnel, Patient and Family Additional record(s) reviewed:: Prior inpatient record Lab Data Attestation: I reviewed the patient's lab results. Labs: Laboratory Results - last 24 hr 07/06/22 07/06/22 07/06/22 06:20 06:20 06:30 WBC 16.6 H RBC 3.87 L Hgb 9.6 L Hct 32.5 L MCV 84.0 MCH 24.8 L MCHC 29.5 L RDW Std Deviation 47.7 H RDW Coeff of Yanely 16.4 H Plt Count 419 MPV 10.9 Immature Gran % (Auto) 3.000 H Neut % (Auto) 53.6 Lymph % (Auto) 26.7 Norman % (Auto) 12.2 H Eos % (Auto) 3.8 Baso % (Auto) 0.7 Absolute Neuts (auto) 8.9 H Absolute Lymphs (auto) 4.42 Nucleated RBC % 0.3 Differential Comment COMMENT Diff Path Review May foll Sodium 135 L Potassium 4.6 Chloride 101 Carbon Dioxide 23.0 Anion Gap 11 BUN 44 H Creatinine 6.53 H Estim Creat Clear Calc 9.46 Est GFR (MDRD) Af Amer 11 L Est GFR (MDRD) Non-Af 9 L BUN/Creatinine Ratio 6.7 L Glucose 176 H Lactic Acid Calcium 7.5 L Phosphorus 4.2 Magnesium 2.0 Procalcitonin 1.53 H 07/06/22 07:15 WBC RBC Hgb Hct MCV MCH MCHC RDW Std Deviation RDW Coeff of Yanely Plt Count MPV Immature Gran % (Auto) Neut % (Auto) Lymph % (Auto) Norman % (Auto) Eos % (Auto) Baso % (Auto) Absolute Neuts (auto) Absolute Lymphs (auto) Nucleated RBC % Differential Comment Diff Path Review Sodium Potassium Chloride Carbon Dioxide Anion Gap BUN Creatinine Estim Creat Clear Calc Est GFR (MDRD) Af Amer Est GFR (MDRD) Non-Af BUN/Creatinine Ratio Glucose Lactic Acid 1.7 Calcium Phosphorus Magnesium Procalcitonin Radiography Diagnostic Testing: Clinical Impression(s) from Imaging Studies Chest X-Ray 07/06/22 06:35 IMPRESSION: Persistent bilateral pulmonary infiltrate, slightly worsening on the right. Electronically Signed: Yash Torres MD at 6:58 EDT , Chest x-ray as interpreted by the emergency medicine physician reveals vascular congestion with pulmonary infiltrate in the right lower lobe Management Discussion w/another healthcare provider: Hospitalist Critical Care Time Critical Care Time: Yes Critical care time (excluding procedures): - (Critical care time of 33 minutes) Discharge Plan Dx/Rx/DC Orders Clinical Impression: Acute respiratory failure with hypoxia, Right lower lobe pneumonia, Chronic kidney disease with end stage renal failure on dialysis, History of complete heart block Disposition Disposition: Acute Care [facility] Discharge Date/Time: 07/06/22 07:50
--- NOTE | 2022-07-06 07:25 | NURSING ---
[facility]
--- NOTE | 2022-07-06 07:34 | NURSING ---
ICU3
[2022-07-06 07:41] LABS: Procalcitonin 1.53 ng/mL (0.00-0.09)
[2022-07-06 07:46] LABS: Lactic Acid 1.7 mmol/L (0.4-1.9)
--- NOTE | 2022-07-06 09:22 | PCM.HP.STD ---
HPI - General General Date of Admission: 07/06/22 Date of Service: 07/06/22 Chief Complaint: Shortness of breath HPI Narrative POLINA GANDARA, is a 77 M who presents to the emergency room at [facility] for evaluation of shortness of breath which started this morning at home. Patient is on no oxygen at home, he had been recently discharged from the hospital here after hospitalization for pulmonary embolism, and pneumonia. Patient had been hospitalized earlier in June also with influenza pneumonia and acute renal failure. Work-up in the emergency room today revealed persistent bilateral pulmonary infiltrates slightly worse on the right, patient's white blood cell count was elevated at 16.6, creatinine was elevated at 6.53 and BUN was 44. Lactic acid was normal at 1.7. Patient required supplemental oxygen with BiPAP to maintain his pulse ox above 90%. Patient was admitted to ICU for acute hypoxic respiratory failure, I contacted nephrology and critical care to see the patient while he was in the hospital. Patient was given cefepime in the emergency room, his last sputum culture on 07/02/2022 grew out Enterobacter cloacae. [facility] Medical History Anemia ARF (acute renal failure) Back pain Bradycardia Cardiology follow-up encounter Central line complication Chronic kidney disease, stage IV (severe) Diabetes DM2 (diabetes mellitus, type 2) DVT (deep venous thrombosis) Essential hypertension Former smoker Gastric reflux High cholesterol High degree atrioventricular block History of complete heart block History of echocardiogram History of pacemaker History of renal disease History of steroid therapy History of stress test Hyperlipidemia Hypertensive urgency Kidney transplant candidate (01/31/19) Kidney transplant complication MRSA infection Pre-syncope Second degree heart block Type 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 Wears glasses Home Medications atorvastatin 40 mg tablet 40 mg PO QHS CHOLESTEROL 06/23/17 [History Last Taken 03/10/21 15:00] dulaglutide 1.5 mg/0.5 mL subcutaneous pen injector 1.5 mg SQ REYNA DIABETES 06/23/17 [History Last Taken 03/09/21] ferrous sulfate 325 mg (65 mg iron) tablet 325 mg PO DAILY supplement 10/24/18 [History Last Taken 03/10/21 09:00] aspirin 81 mg chewable tablet 81 mg PO DAILY heart health 10/02/20 [History Last Taken 03/10/21 09:00] glimepiride 4 mg tablet 4 mg PO DAILY diabetes 10/02/20 [History Last Taken 03/10/21 09:00] prednisone 5 mg tablet 5 mg PO DAILY steroid 10/02/20 [History Last Taken 03/10/21 09:00] tacrolimus 0.5 mg capsule, immediate-release 2 mg PO DAILY immunosuppresive 10/02/20 [History Last Taken 03/10/21 15:00] nifedipine 60 mg tablet,extended release 24 hr (Procardia XL) 60 mg PO DAILY blood pressure 03/11/21 [History Last Taken Unknown] tacrolimus 1 mg capsule, immediate-release 1 mg PO QHS immunosuppresive 03/11/21 [History Last Taken 03/10/21] lorazepam 1 mg tablet (Ativan) 1 mg PO TID PRN anxiety #10 tabs 01/27/22 [Rx Last Taken Unknown] apixaban 5 mg (74 tabs) tablets in a dose pack (Eliquis DVT-PE Treat 30D Start) 5 mg PO BID #74 tabs 07/04/22 [Rx Last Taken Unknown] doxycycline hyclate 100 mg capsule 100 mg PO BID #10 caps 07/04/22 [Rx Last Taken Unknown] Allergy/AdvReac Type Severity Reaction Status Date / Time No Known Allergies Allergy Verified 07/06/22 06:22 Family History Father Pneumonia Mother CVA (cerebral vascular accident) Surgical History History of permanent cardiac pacemaker placement (03/11/21) Renal transplant recipient S/P arteriovenous (AV) fistula creation S/P colonoscopy Status post kidney transplant [place] teeth removed Social History household members: spouse Smoking Status: Former smoker how long ago did patient quit smoking: Quit 1993, 0.5 pk/day until quit. second hand exposure: Yes alcohol intake: current alcohol intake frequency: a few times a month substance use type: does not use ROS Constitutional Constitutional: Reports fatigue, malaise and weakness; Denies anorexia, change in weight, chills, fever(s) or night sweats Eyes Eyes: Denies blurry vision, change in eye color, change in vision, discharge from eye(s) or eye pain Cardiovascular Cardiovascular: Reports dyspnea on exertion; Denies chest pain, claudication, edema or palpitations Respiratory/Chest Respiratory/Chest: Reports cough, dyspnea, shortness of breath at rest and shortness of breath with exertion; Denies hemoptysis Gastrointestinal Gastrointestinal: Denies abdominal pain, constipation, diarrhea, hematemesis, hematochezia, melena, nausea or vomiting Genitourinary Genitourinary: Denies dysuria, hematuria, urinary frequency, urinary hesitancy, urinary incontinence or urinary urgency Musculoskeletal Musculoskeletal: Denies back pain, joint pain, joint stiffness, joint swelling, myalgias or neck pain Neurologic Neurologic: Denies abnormal gait, abnormal speech, confusion, disequilibrium, dizziness, focal weakness, headache(s), loss of vision, numbness, other visual disturbances, paresthesias, syncope or tingling Psychiatric Psychiatric: Denies anxiety, cognitive impairment, depression, irritability, mood swings or suicidal ideation Endocrine Endocrinology: Denies change in body appearance, cold intolerance, excessive sweating, heat intolerance, polydipsia or polyuria Hematologic/Lymphatic Hematologic/Lymphatic: Denies none, anemia, easy bleeding, easy bruising or lymphadenopathy Allergic/Immunologic Allergic/Immunologic: Denies rhinitis, urticaria, eczemia or asthma Vital Signs Vital Signs Vital Signs: 07/06/22 06:17 07/06/22 06:39 07/06/22 06:41 Temperature 97.9 F Temperature Source Axillary Pulse Rate 123 H 115 H 113 H Pulse Strength Respiratory Rate 35 H 36 H Respiratory Effort Respiratory Depth Respiratory Pattern Blood Pressure 190/91 H 155/80 H 155/80 H Blood Pressure Mean 124 105 Blood Pressure Source Blood Pressure Position Blood Pressure Location Pulse Ox 99 100 Oxygen Delivery Method Bi-pap Bi-pap Fraction of Inspired Oxygen (FIO2) 07/06/22 06:16 07/06/22 06:16 07/06/22 06:49 Temperature Temperature Source Pulse Rate 130 H Pulse Strength Respiratory Rate 39 H Respiratory Effort Short of Breath Labored Accessory Muscle Use Respiratory Depth Deep Respiratory Pattern Tachypnea Tachypnea Blood Pressure Blood Pressure Mean Blood Pressure Source Blood Pressure Position Blood Pressure Location Pulse Ox 100 100 Oxygen Delivery Method Bi-pap Bi-pap Fraction of Inspired Oxygen (FIO2) 60 60 60 07/06/22 06:53 07/06/22 07:18 07/06/22 07:40 Temperature 98 F Temperature Source Temporal Pulse Rate 115 H 108 H 105 H Pulse Strength Respiratory Rate 41 H 30 H 30 H Respiratory Effort Respiratory Depth Respiratory Pattern Blood Pressure 124/71 H 98/64 95/58 L Blood Pressure Mean 88 75 70 Blood Pressure Source Blood Pressure Position Blood Pressure Location Pulse Ox 99 97 96 Oxygen Delivery Method Bi-pap Bi-pap Bi-pap Fraction of Inspired Oxygen (FIO2) 60 07/06/22 08:05 07/06/22 08:11 07/06/22 08:15 Temperature 97.4 F L Temperature Source Temporal Pulse Rate 101 H 99 97 Pulse Strength Respiratory Rate 30 H 30 H 28 H Respiratory Effort Respiratory Depth Respiratory Pattern Tachypnea Blood Pressure 123/47 H 105/55 L Blood Pressure Mean 72 71 Blood Pressure Source Monitor Monitor Blood Pressure Position Semi-Fowlers Semi-Fowlers Blood Pressure Location Left Arm Left Arm Pulse Ox 94 95 91 Oxygen Delivery Method Bi-pap Bi-pap Fraction of Inspired Oxygen (FIO2) 45 45 45 07/06/22 08:30 07/06/22 08:44 07/06/22 08:48 Temperature Temperature Source Pulse Rate 92 Pulse Strength Normal (2+) Respiratory Rate 21 H Respiratory Effort Non-Labored Respiratory Depth Shallow Respiratory Pattern Tachypnea Blood Pressure 117/63 Blood Pressure Mean 81 Blood Pressure Source Monitor Blood Pressure Position Semi-Fowlers Blood Pressure Location Left Arm Pulse Ox 100 Oxygen Delivery Method Bi-pap Bi-pap Fraction of Inspired Oxygen (FIO2) 45 45 07/06/22 08:45 Temperature Temperature Source Pulse Rate 90 Pulse Strength Respiratory Rate 26 H Respiratory Effort Respiratory Depth Respiratory Pattern Blood Pressure 104/64 Blood Pressure Mean 77 Blood Pressure Source Monitor Blood Pressure Position Semi-Fowlers Blood Pressure Location Left Arm Pulse Ox 100 Oxygen Delivery Method Bi-pap Fraction of Inspired Oxygen (FIO2) 45 Weight Weight: 97.069 kg Body Mass Index (BMI) 32.5 Physical Exam Const alert, oriented x3 and no apparent distress General Appearance: cooperative, well kempt and well developed Orientation / Consciousness: awake, oriented to person, oriented to place and oriented to time HEENT normocephalic, head/scalp atraumatic, hearing grossly normal bilaterally and moist oral mucous membranes Eyes PERRL, EOMs intact bilaterally and conjunctivae normal Neck supple, no JVD, thyroid normal and no carotid bruits General: trachea midline Resp no use of accessory muscles Resp Narrative: Breath sounds are distant bilaterally, there was noted to be decreased breath sounds especially in the right lower lobe. Auscultation: Negative for rales, rhonchi or wheezes Cardio regular rate, regular rhythm, S1 normal heart sound, S2 normal heart sound, no murmurs, no rub and no gallops GI normal to inspection, nondistended, normoactive bowel sounds, soft to palpation, non-tender and non-distended Extremity no clubbing, cyanosis or edema Skin no rashes or lesions noted General Skin Exam: no breakdown Neuro oriented x3, CN's II-XII intact bilaterally, no focal motor deficits and no sensory deficits noted Sensorium / Orientation: awake, alert, oriented to person, oriented to place and oriented to time Speech: speech normal Psych affect normal Results Lab / Micro Data Result Diagrams: 07/06/22 06:20 07/06/22 06:20 Labs: Laboratory Results - last 24 hr 07/06/22 06:20: WBC 16.6 H, RBC 3.87 L, Hgb 9.6 L, Hct 32.5 L, MCV 84.0, MCH 24.8 L, MCHC 29.5 L, RDW Std Deviation 47.7 H, RDW Coeff of Yanely 16.4 H, Plt Count 419, MPV 10.9, Immature Gran % (Auto) 3.000 H, Neut % (Auto) 53.6, Lymph % (Auto) 26.7, Waller % (Auto) 12.2 H, Eos % (Auto) 3.8, Baso % (Auto) 0.7, Absolute Neuts (auto) 8.9 H, Absolute Lymphs (auto) 4.42, Nucleated RBC % 0.3, Differential Comment COMMENT, Diff Path Review August07/06/22 06:20: Sodium 135 L, Potassium 4.6, Chloride 101, Carbon Dioxide 23.0, Anion Gap 11, BUN 44 H, Creatinine 6.53 H, Estim Creat Clear Calc 9.46, Est GFR (MDRD) Af Amer 11 L, Est GFR (MDRD) Non-Af 9 L, BUN/Creatinine Ratio 6.7 L, Glucose 176 H, Calcium 7.5 L, Phosphorus 4.2, Magnesium 2.0 07/06/22 06:30: Procalcitonin 1.53 H 07/06/22 07:15: Lactic Acid 1.7 Radiology Impression Chest X-Ray 07/06/22 06:35 IMPRESSION: Persistent bilateral pulmonary infiltrate, slightly worsening on the right. Electronically Signed: Yash Torres MD at 6:58 EDT , Assessment & Plan Assessment/Plan (1) Acute respiratory failure with hypoxia: PLAN: Plan 1. Acute hypoxic respiratory failure secondary to fluid overload due to end-stage renal disease on an overlay of Enterobacter cloacae a pneumonia-patient will be admitted to ICU, he will be seen by critical care, patient was placed on cefepime, he will be seen by nephrology. #2 fluid overload secondary to end-stage renal disease-patient will be seen by nephrology today, he will undergo dialysis today #3 essential hypertension-patient will remain on his present medications #4 end-stage renal disease-patient will be seen by nephrology and undergo dialysis #5 type 2 diabetes-blood sugars will be monitored, sliding scale insulin will be administered #6 recent pulmonary embolism-patient will be maintained on Eliquis Total clinical time spent by myself addressing patient's medical issues, reviewing all the data, and collaborating with patient's care team: 75 minutes Charges/Coding Visit Charges Inpatient E&M: 52315 Init Hosp L3
--- NOTE | 2022-07-06 09:59 | EX.PCM.CONCC ---
Assessment & Plan Assessment/Plan (1) Acute respiratory failure with hypoxia: (2) Right lower lobe pneumonia: (3) Chronic kidney disease with end stage renal failure on dialysis: PLAN: Plan RECOMMENDATIONS: 1. Agree with change in antibiotic regimen 2. Continue BiPAP for now, but likely give breaks later today 3. Repeat sputum culture if possible 4. Wean oxygen as tolerated 5. Hemodialysis timing per nephrology 6. Monitor blood sugars closely 7. Okay to continue anticoagulation at this time IMPRESSIONS: 1. Acute hypoxic respiratory failure Clinical suspicion for multifactorial etiology. Patient did have Enterobacter cloacae grown previous culture and was discharged on doxycycline. Patient currently is on cefepime with increased right lower lobe infiltrate and procalcitonin. We will continue with BiPAP as necessary for rescue, but patient may be able to take breaks later today. Patient may also have an element of fluid overload secondary to end-stage renal disease. Nephrology has been consulted and patient may benefit from volume removal. No significant hypotension has been noted. Patient also has a recent diagnosis of pulmonary embolism, but reportedly has been compliant with Eliquis therapy. 2. Diabetes mellitus/ESRD/hypertension/advanced age/repeated hospitalization Complicates care, management, recovery and prognosis. We will need to monitor blood sugars closely. Patient may have variable p.o. intake secondary to problem #1. Patient okay to remain on current blood pressure medications. Patient will need PT/OT for evaluation his debility is a concern given his repeated hospitalizations. Patient has been a full code previously. Respiratory status appears to be improving, but cannot exclude intubation at this time. We will continue to monitor in the intensive care unit. HPI Consult Data Date of Consult: 07/06/22 HPI Narrative HPI Narrative: POLINA GANDARA is a 77 M, with past medical history listed below and well-known to me from previous admissions, who presents to [facility] on 07/06/2022 secondary to hypoxia and worsening overall status. Patient was recently hospitalized approximately 2 weeks ago with fluid overload, respiratory distress and worsening renal function. At that time, patient was initiated on hemodialysis with volume removal and improvement. Approximately 5 days later after discharge patient started to develop acute shortness of breath and was found to have pulmonary emboli. Patient was discharged 2 days ago on Eliquis and doxycycline. Patient reportedly had felt fine on Wednesday morning, but started to have increasing shortness of breath through the course of the day. Patient saturations were noted to be in the mid 80s on room air and patient does not wear supplemental oxygen at baseline. In the ER, patient was afebrile, but tachycardic at 123 bpm, hypertensive at 190/91 and tachypneic at a rate of 35. Patient was placed on BiPAP with improvement in respiratory rate. Laboratory work-up showed a white blood cell count of 16.6, hemoglobin of 9.6 and platelets of 419. Chemistry showed a BUN of 44 and a creatinine of 6.5. Bicarbonate was normal at 23. Procalcitonin was elevated at 1.53, but lactate was at 1.7. Chest x-ray showed worsening of right lower lobe infiltrate. Patient's previous hospitalization had shown Enterobacter that was not sensitive to doxycycline. Patient was given cefepime and admitted to the intensive care unit on BiPAP therapy. Since being admitted to the ICU, patient has done okay. Patient's oxygen requirements have significantly improved over the course of his presentation. Patient is not reporting any pain, but not providing much additional information. Most of the medical history was obtained through the electronic medical record. [facility] Medical History Anemia ARF (acute renal failure) Back pain Bradycardia Cardiology follow-up encounter Central line complication Chronic kidney disease, stage IV (severe) CKD (chronic kidney disease) stage 5, GFR less than 15 ml/min Diabetes DM2 (diabetes mellitus, type 2) DVT (deep venous thrombosis) Essential hypertension Former smoker Gastric reflux High cholesterol High degree atrioventricular block History of complete heart block History of echocardiogram History of pacemaker History of renal disease History of steroid therapy History of stress test Hyperlipidemia Hypertensive urgency Kidney transplant candidate (01/31/19) Kidney transplant complication MRSA infection Pre-syncope Second degree heart block Type 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 Wears glasses Home Medications atorvastatin 40 mg tablet 40 mg PO QHS CHOLESTEROL 06/23/17 [History Last Taken 03/10/21 15:00] dulaglutide 1.5 mg/0.5 mL subcutaneous pen injector 1.5 mg SQ REYNA DIABETES 06/23/17 [History Last Taken 03/09/21] ferrous sulfate 325 mg (65 mg iron) tablet 325 mg PO DAILY supplement 10/24/18 [History Last Taken 03/10/21 09:00] aspirin 81 mg chewable tablet 81 mg PO DAILY [facility] 10/02/20 [History Last Taken 03/10/21 09:00] glimepiride 4 mg tablet 4 mg PO DAILY diabetes 10/02/20 [History Last Taken 03/10/21 09:00] prednisone 5 mg tablet 5 mg PO DAILY steroid 10/02/20 [History Last Taken 03/10/21 09:00] tacrolimus 0.5 mg capsule, immediate-release 2 mg PO DAILY immunosuppresive 10/02/20 [History Last Taken 03/10/21 15:00] nifedipine 60 mg tablet,extended release 24 hr (Procardia XL) 60 mg PO DAILY blood pressure 03/11/21 [History Last Taken Unknown] tacrolimus 1 mg capsule, immediate-release 1 mg PO QHS immunosuppresive 03/11/21 [History Last Taken 03/10/21] lorazepam 1 mg tablet (Ativan) 1 mg PO TID PRN anxiety #10 tabs 01/27/22 [Rx Last Taken Unknown] apixaban 5 mg (74 tabs) tablets in a dose pack ([employer] DVT-PE Treat 30D Start) 5 mg PO BID #74 tabs 07/04/22 [Rx Last Taken Unknown] doxycycline hyclate 100 mg capsule 100 mg PO BID #10 caps 07/04/22 [Rx Last Taken Unknown] Allergy/AdvReac Type Severity Reaction Status Date / Time No Known Allergies Allergy Verified 07/06/22 06:22 Family History Father Pneumonia Mother CVA (cerebral vascular accident) Surgical History History of permanent cardiac pacemaker placement (03/11/21) Renal transplant recipient S/P arteriovenous (AV) fistula creation S/P colonoscopy Status post kidney transplant [place] teeth removed Social History household members: spouse Smoking Status: Former smoker how long ago did patient quit smoking: Quit 1993, 0.5 pk/day until quit. second hand exposure: Yes alcohol intake: current alcohol intake frequency: a few times a month substance use type: does not use ROS ROS Narrative Due to patient cooperation Physical Exam Const oriented x3 and no apparent distress Constitutional Narrative: Resting comfortably. Good BiPAP synchrony. General Appearance: cooperative, well kempt and well developed HEENT normocephalic, head/scalp atraumatic, hearing grossly normal bilaterally and moist oral mucous membranes Eyes PERRL, EOMs intact bilaterally and conjunctivae normal Neck supple, no JVD, thyroid normal and no carotid bruits General: trachea midline Chest Chest Narrative: Left subclavian tunneled hemodialysis line is clean, dry and intact. Resp no use of accessory muscles Auscultation: diminished lung sounds right lower; Negative for rales, rhonchi or wheezes Cardio regular rate, regular rhythm, S1 normal heart sound, S2 normal heart sound, no murmurs, no rub and no gallops GI normal to inspection, nondistended, normoactive bowel sounds, soft to palpation, non-tender and non-distended Extremity no clubbing, cyanosis or edema Skin no rashes or lesions noted Skin Narrative: Mild ecchymosis noted in left clavicular region General Skin Exam: no breakdown Neuro oriented x3, CN's II-XII intact bilaterally, no focal motor deficits and no sensory deficits noted Sensorium / Orientation: awake, alert, oriented to person, oriented to place and oriented to time Speech: speech normal Psych affect normal Medical Records Data Attestation: I reviewed the patient's medical records Lab / Micro Data Attestation: I reviewed the patient's lab results. Result Diagrams: 07/06/22 06:20 07/06/22 06:20 Labs: Laboratory Results - last 24 hr 07/06/22 06:20: WBC 16.6 H, RBC 3.87 L, Hgb 9.6 L, Hct 32.5 L, MCV 84.0, MCH 24.8 L, MCHC 29.5 L, RDW Std Deviation 47.7 H, RDW Coeff of Yanely 16.4 H, Plt Count 419, MPV 10.9, Immature Gran % (Auto) 3.000 H, Neut % (Auto) 53.6, Lymph % (Auto) 26.7, [place] % (Auto) 12.2 H, Eos % (Auto) 3.8, Baso % (Auto) 0.7, Absolute Neuts (auto) 8.9 H, Absolute Lymphs (auto) 4.42, Nucleated RBC % 0.3, Differential Comment COMMENT, Diff Path Review August07/06/22 06:20: Sodium 135 L, Potassium 4.6, Chloride 101, Carbon Dioxide 23.0, Anion Gap 11, BUN 44 H, Creatinine 6.53 H, Estim Creat Clear Calc 9.46, Est GFR (MDRD) Af Amer 11 L, Est GFR (MDRD) Non-Af 9 L, BUN/Creatinine Ratio 6.7 L, Glucose 176 H, Calcium 7.5 L, Phosphorus 4.2, Magnesium 2.0 07/06/22 06:30: Procalcitonin 1.53 H 07/06/22 07:15: Lactic Acid 1.7 Radiology Impression Chest X-Ray 07/06/22 06:35 IMPRESSION: Persistent bilateral pulmonary infiltrate, slightly worsening on the right. Electronically Signed: Yash Torres MD at 6:58 EDT , Charges/Coding Visit Charges Inpatient E&M: 00265 Init Hosp L3
[2022-07-06] MEDS: Ipratropium/Albuterol Sulfate 3 ML AMPUL.NEB INHALATION ×3 (10:25→18:30)
--- NOTE | 2022-07-06 11:27 | CHAPLAIN ---
Type of Pastoral Visit ___ Initial Visit ___ Follow-up Visit ___ On-call Visit ___ General Patient Visit ___ Spiritual Assessment ___ Family Conference ___ Bereavement ___ Rapid Response ___ Code Blue ___ Other (describe below) Pastoral Care Referral From ___ Patient ___ Family ___ Nurse ___ Physician ___ Plating Department Helper ___ Shipping And Receiving Operator ___ Other (describe below) Sacrament/Intervention ___ Active listening ___ Anointing ___ Spiritism ___ Bereavement ___ Communion ___ Ximena exploration ___ ___ Life review ___ Prayer ___ Reconciliation ___ Sacrament of Sick ___ Supportive presence ___ Wedding ___ Other (describe below) Pastoral Comments patient is getting dialysis treatment and is sleepy; will attempt visit another time
[2022-07-06 12:45] LABS: Bedside Glucose 146 mg/dL (74-106)
--- NOTE | 2022-07-06 13:45 | DIALYSIS ---
IUF x2.5 hours completed at 1330, UF 2500mL, CritLine profile C first 30 mins of tx but SBP maintained 120s, then CritLine fluctuated rest of treatment, accessed via left chest tunneled dialysis catheter, worked well (sticky pull venous port), AVF noted to RFA, +bruit +thrill, maturing, feels small, dialysis planned for tomorrow 07/07/22 per patient's regular TTS dialysis schedule; post BP 121/71
[2022-07-06] MEDS: Ferrous Sulfate 325 MG Tablet PO (14:09)
[2022-07-06] MEDS: Tacrolimus 0.5 MG Capsule 2 MG PO (14:09)
[2022-07-06] MEDS: NIFEdipine 60 MG Tablet PO (14:09)
[2022-07-06] MEDS: Aspirin 81 MG TAB.CHEW PO (14:09)
[2022-07-06] MEDS: predniSONE 5 MG Tablet PO (14:09)
[2022-07-06] MEDS: APIXABAN 5 MG TABLET PO ×2 (14:09→21:06)
[2022-07-06] MEDS: Heparin 10,000 UNITS/10 ML Vial 4000 UNITS IV (14:14)
[2022-07-06] MEDS: 0.9% Saline Lock 10 ML Syringe IV (14:14)
--- NOTE | 2022-07-06 14:45 | CON.PCM.RE_ITS ---
Assessment & Plan Assessment/Plan (1) ESRD (end stage renal disease): (2) Acute respiratory failure with hypoxia: (3) Right lower lobe pneumonia: (4) Anemia in chronic illness: PLAN: Plan 77-year-old male with history of 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 Patient's first hemodialysis session was on June 24. Patient's outpatient hemodialysis schedule is Wednesday schedule. Patient did have sequential treatment today and tolerated 2.5 L fluid removal. We will plan for hemodialysis session tomorrow over 3.5 hours and attempt fluid removal as patient/blood pressure tolerates. Patient has not reached a dry weight yet. Patient has only been dialyzing 2 weeks, he began dialysis as slow start over 2.5 hours on June 24. Dialysis time is now up to 3.5 hours. Because he dialyzed/sequential treatment today we will plan for dialysis over 3.5 hours tomorrow and then beginning we will begin dialysis at 4 hours with fluid removal as patient/blood pressure tolerates. -Patient has history of anemia of chronic disease and has been receiving BOLIVAR in hospital. Once he is at the kidney center patient will receive BOLIVAR and IV iron. Hemoglobin is 9.6 today. -Acute hypoxic respiratory failure, multifactorial. Antibiotics have been changed and is on Cefepime. Peripheral blood cultures pending. Blood cultures from 07/02 no growth. Patient recently diagnosed with pulmonary embolism started on Eliquis. Dry weight not reached yet, will continue to remove fluid as patient can tolerate. -Blood pressures acceptable on nifedipine. -Further orders forthcoming as hospitalization evolves. Thank for allowing us participate in the care of Mr. Burns. HPI Consult Data Date of Consult: 07/06/22 HPI Narrative HPI Narrative: POLINA BURNS, is a 77 M with past medical history significant for new ESRD secondary to FSGS status post living kidney donor transplant (January 2019), diabetes mellitus type 2, hypertension, anemia of chronic disease, hyperlipidemia, history of DVT who presented to the emergency room with complaints of shortness of breath. Patient had been recently admitted to the hospital last week for shortness of breath which was secondary to pulmonary embolism and pneumonia. He was discharged to home over the weekend and was started on Eliquis. Patient dialyzes at [facility] on Wednesday schedule patient. Patient last dialyzed in the hospital on Wednesday before being discharged to [facility]. This morning work-up in the emergency room revealed persistent bilateral pulmonary infiltrates worse on right, elevated white blood cell count at 16.6. Patient was placed on supplemental oxygen with BiPAP and admitted to ICU. Patient underwent dialysis/ultrafiltration already today and tolerated around 2.5 L fluid removal. He reports breathing has improved. He was just taken off BiPAP and placed on O2 per nasal cannula. Patient denies any recent fevers. [facility] Medical History Anemia ARF (acute renal failure) Back pain Bradycardia Cardiology follow-up encounter Central line complication Chronic kidney disease, stage IV (severe) CKD (chronic kidney disease) stage 5, GFR less than 15 ml/min Diabetes DM2 (diabetes mellitus, type 2) DVT (deep venous thrombosis) Essential hypertension Former smoker Gastric reflux High cholesterol High degree atrioventricular block History of complete heart block History of echocardiogram History of pacemaker History of renal disease History of steroid therapy History of stress test Hyperlipidemia Hypertensive urgency Kidney transplant candidate (01/31/19) Kidney transplant complication MRSA infection Pre-syncope Second degree heart block Type 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 Wears glasses Home Medications atorvastatin 40 mg tablet 40 mg PO QHS CHOLESTEROL 06/23/17 [History Last Taken 03/10/21 15:00] dulaglutide 1.5 mg/0.5 mL subcutaneous pen injector 1.5 mg SQ REYNA DIABETES 06/23/17 [History Last Taken 03/09/21] ferrous sulfate 325 mg (65 mg iron) tablet 325 mg PO DAILY supplement 10/24/18 [History Last Taken 03/10/21 09:00] aspirin 81 mg chewable tablet 81 mg PO DAILY [facility] 10/02/20 [History Last Taken 03/10/21 09:00] glimepiride 4 mg tablet 4 mg PO DAILY diabetes 10/02/20 [History Last Taken 1 05/10/20 09:00] prednisone 5 mg tablet 5 mg PO DAILY steroid 10/02/20 [History Last Taken 03/10/21 09:00] tacrolimus 0.5 mg capsule, immediate-release 2 mg PO DAILY immunosuppresive 10/02/20 [History Last Taken 03/10/21 15:00] nifedipine 60 mg tablet,extended release 24 hr (Procardia XL) 60 mg PO DAILY blood pressure 03/11/21 [History Last Taken Unknown] tacrolimus 1 mg capsule, immediate-release 1 mg PO QHS immunosuppresive 03/11/21 [History Last Taken 03/10/21] lorazepam 1 mg tablet (Ativan) 1 mg PO TID PRN anxiety #10 tabs 01/27/22 [Rx Last Taken Unknown] apixaban 5 mg (74 tabs) tablets in a dose pack ([employer] DVT-PE Treat 30D Start) 5 mg PO BID #74 tabs 07/04/22 [Rx Last Taken Unknown] doxycycline hyclate 100 mg capsule 100 mg PO BID #10 caps 07/04/22 [Rx Last Taken Unknown] Allergy/AdvReac Type Severity Reaction Status Date / Time No Known Allergies Allergy Verified 07/06/22 06:22 Family History Father Pneumonia Mother CVA (cerebral vascular accident) Surgical History History of permanent cardiac pacemaker placement (03/11/21) Renal transplant recipient S/P arteriovenous (AV) fistula creation S/P colonoscopy Status post kidney transplant [place] teeth removed Social History household members: spouse Smoking Status: Former smoker how long ago did patient quit smoking: Quit 1993, 0.5 pk/day until quit. second hand exposure: Yes alcohol intake: current alcohol intake frequency: a few times a month substance use type: does not use ROS ROS Narrative As in HPI Physical Exam Narrative Alert and oriented x3, no apparent distress S1, S2, RRR Lung sounds diminished breath sounds with faint rhonchi noted posterior bases Abdomen soft, nontender, positive bowel sounds Tunneled HD catheter dressing clean dry and intact No edema noted bilateral lower legs, feet or arms Right forearm AV fistula positive thrill and bruit noted Lab / Micro Data Result Diagrams: 07/06/22 06:20 07/06/22 06:20 Labs: Laboratory Results - last 24 hr 07/06/22 06:20: WBC 16.6 H, RBC 3.87 L, Hgb 9.6 L, Hct 32.5 L, MCV 84.0, MCH 24.8 L, MCHC 29.5 L, RDW Std Deviation 47.7 H, RDW Coeff of Yanely 16.4 H, Plt Count 419, MPV 10.9, Immature Gran % (Auto) 3.000 H, Neut % (Auto) 53.6, Lymph % (Auto) 26.7, [place] % (Auto) 12.2 H, Eos % (Auto) 3.8, Baso % (Auto) 0.7, Absolute Neuts (auto) 8.9 H, Absolute Lymphs (auto) 4.42, Nucleated RBC % 0.3, Differential Comment COMMENT, Diff Path Review August07/06/22 06:20: Sodium 135 L, Potassium 4.6, Chloride 101, Carbon Dioxide 23.0, Anion Gap 11, BUN 44 H, Creatinine 6.53 H, Estim Creat Clear Calc 9.46, Est GFR (MDRD) Af Amer 11 L, Est GFR (MDRD) Non-Af 9 L, BUN/Creatinine Ratio 6.7 L, Glucose 176 H, Calcium 7.5 L, Phosphorus 4.2, Magnesium 2.0 07/06/22 06:30: Procalcitonin 1.53 H 07/06/22 07:15: Lactic Acid 1.7 07/06/22 12:28: POC Glucose 146 H Radiology Impression Chest X-Ray 07/06/22 06:35 IMPRESSION: Persistent bilateral pulmonary infiltrate, slightly worsening on the right. Electronically Signed: Yash Torres MD at 6:58 EDT ,
--- NOTE | 2022-07-06 15:22 | CHAPLAIN ---
Type of Pastoral Visit _x__ Initial Visit ___ Follow-up Visit ___ On-call Visit ___ General Patient Visit ___ Spiritual Assessment ___ Family Conference ___ Bereavement ___ Rapid Response ___ Code Blue ___ Other (describe below) Pastoral Care Referral From _x__ Patient ___ Family ___ Nurse ___ Physician ___ Manager Advertising ___ Mortgage Sales Manager ___ Other (describe below) Sacrament/Intervention ___ Active listening ___ Anointing ___ Mosque ___ Bereavement ___ Communion ___ Ximena exploration ___ ___ Life review ___ Prayer ___ Reconciliation ___ Sacrament of Sick _x__ Supportive presence ___ Wedding ___ Other (describe below) Pastoral Comments this patient has been admitted several times recently; pt usually states I am fine and it is okay; offered presence and support again this admission; gave several open ended questions to give patient every opportunity to express any needs or concerns; pt is quiet; pt did admit that he is tired of coming to the hospital and prefers to be at home; offer repeated that this clerical supervisor is available to sit with him and hear his concerns or express his feelings; pt expresses thankfulness for that
--- NOTE | 2022-07-06 15:45 | CASEMGMT ---
1330: NORMA SANCHEZ readmission note: Prior admissions: This is pt's 3rd admission since 06/23/22. Admitted 06/23 w/acute hypoxic resp failure and discharged home 06/26 on RA. Admitted again 07/02 w/hypoxia and discharged home 07/04 on RA. Pt was found to have PE during that admission and discharged home on Eliquis and doxycycline. Pt did not qualify for home O2 @ discharge for either admissions. See Nadir readmit note 07/03 and NORMA SANCHEZ assessment from 06/24. Pt goes to [facility] for OP HD TTS. Chair time 0545. Pt lives w/. Pt is independent @ baseline and Current admission: Admitted 07/06 w/acute resp failure. Sputum culture at his last visit + Enterobacter and sensitivity shows it is not sensitive to doxycycline which he was sent home on. BC's drawn and pt started on IV Cefepime. Pt also placed on BIPAP d/t hypoxia. NORMA SANCHEZ to room earlier today to meet w/pt. Pt sleeping w/BIPAP in place. NORMA SANCHEZ spoke w/pt's , Esperanza, who states pt has been going to OP HD as scheduled and has been taking medications as prescribed. He has not had any appts since being discharged home 07/04. states, if pt qualifies for SNF or RU @ d/c, she would prefer pt goes to in [place] that takes dialysis pt's. She states if pt does not qualify for either RU or SNF, then she would be interested in HHC, if pt qualifies, and prefers [facility]. She has no preference of [facility], should pt qualify for home O2. Call placed to Paris @ [facility]. Paris reviewed pt's chart and states if pt able to return home, they can accept pt for SN, PT/OT ,and BUS REPAIR SUPERVISOR, w/SOC slated for Wednesday. She states pt's insurance would require prior-auth. Discussed Palliative care w/both and pt and they are both agreeable to referral. Order received from Dr Hernandez for Palliative referral. Call placed to Daylin @ [facility] Palliative and referral sent Conveneerea e-mail. provided w/[employer] info/contact # also. Plan: TBD. SNF/RU vs Home w/[facility] (SN, PT/OT, and BUS REPAIR SUPERVISOR) pending pt's course of treatment and progress w/therapy. PT/OT evals pending. If pt returns home, follow for possible home oxygen @ discharge. Palliative referral made Gabriel KNAPP RN CM
[2022-07-06] MEDS: Insulin Lispro 100 UNIT/ML INSULN.PEN SC ×2 (17:18→21:06)
[2022-07-06 17:40] LABS: Bedside Glucose 217 mg/dL (74-106)
[2022-07-06] MEDS: Atorvastatin Calcium 40 MG Tablet PO (21:06)
[2022-07-06] MEDS: Tacrolimus Anhydrous 1 MG Capsule PO (21:06)
[2022-07-06 23:11] LABS: Bedside Glucose 284 mg/dL (74-106)
[2022-07-07] VITALS (23 sets, daily range): BP systolic 93–120; BP diastolic 52–96; PULSE 74–105; RESP 14–31; TEMP 36.6–37.1; O2SAT 93–100; BMI 33.0
[2022-07-07 04:30] LABS: Absolute Neutrophil Count 6.2 X10^3/uL (2.0-7.7); Basophil# 0.04 X10^3/uL; Basophil% 0.4 % (0-1); Eosinophil# 0.16 X10^3/uL; Eosinophils% 1.7 % (0-5); Hematocrit 27.3 % (40-54); Hemoglobin 8.3 g/dL (13.0-16.5); Lymphocyte % 18.4 % (19-41); Mean Corp Hgb Conc 30.4 g/dL (32-36); Mean Corpuscular Hgb 24.9 pg (27.0-32.0); Mean Platelet Vol. 10.7 fl (6.2-12.0); Monocyte# 0.98 X10^3/uL; Monocyte% 10.6 % (0-10); NRBC Flagged by Analyzer 0 % (0-5); Neutrophil # 6.22 X10^3/uL (2.7-7.7); Neutrophil % 67.2 % (47-70); Platelet Count 301 K/mm3 (150-450); RBC Distribution Width CV 16.4 % (11.6-14.6); RBC Distribution Width SD 46.5 fl (35.1-43.9); Red Blood Count 3.33 M/mm3 (4.6-6.2); White Blood Count 9.3 K/mm3 (4.4-11.0)
[2022-07-07 04:59] LABS: Anion Gap 11 (5-15); BUN 71 mg/dL (7-18); BUN/Creat Ratio 8.8 RATIO (10-20); Chloride 102 mmol/L (98-107); EST Glomerular Filtration Rate 7 mL/min (>60); Est Glom Filt Rate - Afr Amer 8 mL/min (>60); Estimated Creatinine Clearance 7.62 ml/min; Glucose 218 mg/dL (74-106); Potassium 4.9 mmol/L (3.5-5.1); Sodium Level 134 mmol/L (136-145)
[2022-07-07] MEDS: Insulin Lispro 100 UNIT/ML INSULN.PEN SC ×3 (06:34→22:09)
[2022-07-07 06:55] LABS: Bedside Glucose 161 mg/dL (74-106)
[2022-07-07] MEDS: Ipratropium/Albuterol Sulfate 3 ML AMPUL.NEB INHALATION ×2 (06:55→18:52)
--- NOTE | 2022-07-07 07:06 | PN.CC_ITS ---
Assessment & Plan Assessment/Plan (1) Acute respiratory failure with hypoxia: (2) Right lower lobe pneumonia: (3) Chronic kidney disease with end stage renal failure on dialysis: PLAN: Plan RECOMMENDATIONS: 1. Agree with change in antibiotic regimen 2. Okay to transition to BiPAP with sleep 3. Await repeat cultures 4. Walking oximetry prior to discharge 5. Hemodialysis timing per nephrology 6. Monitor blood sugars closely 7. Okay to continue anticoagulation at this time 8. Okay to transfer from the intensive care unit from my perspective IMPRESSIONS: 1. Acute hypoxic respiratory failure Clinical suspicion for multifactorial etiology. Patient did have Enterobacter cloacae grown previous culture and was discharged on doxycycline. Patient currently is on cefepime with increased right lower lobe infiltrate and procalcitonin. Patient has not experienced a significant hypotension following change in antibiotics. Likely okay to transition to BiPAP with sleep. Patient may also have an element of fluid overload secondary to end-stage renal disease. Nephrology has been consulted and patient may benefit from volume removal. No significant hypotension has been noted. Patient also has a recent diagnosis of pulmonary embolism, but reportedly has been compliant with Eliquis therapy. 2. Diabetes mellitus/ESRD/hypertension/advanced age/repeated hospitalization Complicates care, management, recovery and prognosis. We will need to monitor blood sugars closely. Patient may have variable p.o. intake secondary to problem #1. Patient okay to remain on current blood pressure medications. Patient will need PT/OT for evaluation his debility is a concern given his repeated hospitalizations. Patient has been a full code previously. Okay to leave the intensive care unit from my perspective Subjective Subjective Patient did well overnight. Patient did use BiPAP with sleep, but was able to tolerate room air. Patient was able to ambulate around the room yesterday. No complaints of pain this morning. No pressors or fluid boluses required overnight. Patient continues to have a productive cough. Objective Data Objective Data Vital Signs: Vital Signs Temp Pulse Resp BP Pulse Ox O2 Del Method FiO2 36.6 C 75 20 H 93/52 L 95 Bi-pap 07/07/22 00:00 07/07/22 06:00 07/07/22 06:00 07/07/22 06:00 07/07/22 06:00 07/07/22 06:00 07/07/22 02:57 Oxygen Delivery Method Bi-pap Weight: 98.8 kg Body Mass Index (BMI) 33.0 Intake & Output: Intake and Output for Last 24 Hours 07/05/22 07/06/22 07/07/22 23:59 23:59 23:59 Intake Total 380 / 500 120 / 120 Output Total 2500 / 2500 2500 / 2500 Balance -2120 / -1999 -2380 / -2380 Lab / Micro Data Attestation: I reviewed the patient's lab results. Result Diagrams: 07/07/22 04:21 07/07/22 04:21 Labs: Laboratory Results - last 24 hr 07/06/22 06:20: Differential Comment COMMENT, Diff Path Review August07/06/22 06:30: Procalcitonin 1.53 H 07/06/22 07:15: Lactic Acid 1.7 07/06/22 12:28: POC Glucose 146 H 07/06/22 17:11: POC Glucose 217 H 07/06/22 21:05: POC Glucose 284 H 07/07/22 04:21: WBC 9.3, RBC 3.33 L, Hgb 8.3 L, Hct 27.3 L, MCV 82.0, MCH 24.9 L , MCHC 30.4 L, RDW Std Deviation 46.5 H, RDW Coeff of Yanely 16.4 H, Plt Count 301, MPV 10.7, Immature Gran % (Auto) 1.700 H, Neut % (Auto) 67.2, Lymph % (Auto) 18.4 L, [place] % (Auto) 10.6 H, Eos % (Auto) 1.7, Baso % (Auto) 0.4, Absolute Neuts (auto) 6.2, Absolute Lymphs (auto) 1.70, Nucleated RBC % 0 07/07/22 04:21: Sodium 134 L, Potassium 4.9, Chloride 102, Carbon Dioxide 21.0, Anion Gap 11, BUN 71 H, Creatinine 8.10 H*, Estim Creat Clear Calc 7.62, Est GFR (MDRD) Af Amer 8 L, Est GFR (MDRD) Non-Af 7 L, BUN/Creatinine Ratio 8.8 L, Glucose 218 H, Calcium 7.0 L 07/07/22 06:33: POC Glucose 161 H Physical Exam Const oriented x3 and no apparent distress Constitutional Narrative: Resting comfortably. Good BiPAP synchrony. General Appearance: cooperative, well kempt and well developed HEENT normocephalic, head/scalp atraumatic, hearing grossly normal bilaterally and moist oral mucous membranes Eyes PERRL, EOMs intact bilaterally and conjunctivae normal Neck supple, no JVD, thyroid normal and no carotid bruits General: trachea midline Chest Chest Narrative: Left subclavian tunneled hemodialysis line is clean, dry and intact. Resp no use of accessory muscles Auscultation: diminished lung sounds right lower; Negative for rales, rhonchi or wheezes Cardio regular rate, regular rhythm, S1 normal heart sound, S2 normal heart sound, no murmurs, no rub and no gallops GI normal to inspection, nondistended, normoactive bowel sounds, soft to palpation, non-tender and non-distended Extremity no clubbing, cyanosis or edema Skin no rashes or lesions noted Skin Narrative: Mild ecchymosis noted in left clavicular region General Skin Exam: no breakdown Neuro oriented x3, CN's II-XII intact bilaterally, no focal motor deficits and no sensory deficits noted Sensorium / Orientation: awake, alert, oriented to person, oriented to place and oriented to time Speech: speech normal Psych affect normal Charges/Coding Visit Charges Inpatient E&M: 66126 Subs Hosp L2
--- NOTE | 2022-07-07 11:40 | DIALYSIS ---
Hemodialysis x 3.5 hours, net UF 2500 ml - UF limited by BV% dropping to <-12 coincident with relative hypotension and tachycardia. Blood returned to patient at end of treatment. HD catheter ports closed with heparin. RN report at bedside.
[2022-07-07] MEDS: Aspirin 81 MG TAB.CHEW PO (12:27)
[2022-07-07] MEDS: Ferrous Sulfate 325 MG Tablet PO (12:27)
[2022-07-07] MEDS: predniSONE 5 MG Tablet PO (12:28)
[2022-07-07] MEDS: APIXABAN 5 MG TABLET PO ×2 (12:28→21:53)
[2022-07-07] MEDS: Tacrolimus 0.5 MG Capsule 2 MG PO (12:28)
[2022-07-07] MEDS: Heparin 10,000 UNITS/10 ML Vial 4000 UNITS IV (12:29)
[2022-07-07 12:55] LABS: Bedside Glucose 149 mg/dL (74-106)
--- NOTE | 2022-07-07 14:31 | PCM.PN.REN ---
Subjective Subjective Seen after dialysis. Sitting in recliner chair. Denies any complaints. Patient expressing concern as his blood pressure dropped during dialysis today. Denies any cramping or dizziness. Objective Data Objective Data Vital Signs: Vital Signs Temp Pulse Resp BP Pulse Ox O2 Del Method FiO2 98.7 F 105 H 23 H 100/53 L 97 Room Air 21 07/07/22 13:00 07/07/22 13:00 07/07/22 13:00 07/07/22 13:00 07/07/22 13:00 07/07/22 13:00 07/07/22 07:00 Oxygen Delivery Method Room Air Weight: 98.8 kg Body Mass Index (BMI) 33.0 Intake & Output: Intake and Output for Last 24 Hours 07/05/22 07/06/22 07/07/22 23:59 23:59 23:59 Intake Total 380 / 500 500 / 500 Output Total 2500 / 2500 2500 / 2500 Balance -2119 / -1999 -1999 / Lab / Micro Data Result Diagrams: 07/07/22 04:21 07/07/22 04:21 Labs: Laboratory Results - last 24 hr 07/06/22 17:11: POC Glucose 217 H 07/06/22 21:05: POC Glucose 284 H 07/07/22 04:21: WBC 9.3, RBC 3.33 L, Hgb 8.3 L, Hct 27.3 L, MCV 82.0, MCH 24.9 L, MCHC 30.4 L, RDW Std Deviation 46.5 H, RDW Coeff of Yanely 16.4 H, Plt Count 301, MPV 10.7, Immature Gran % (Auto) 1.700 H, Neut % (Auto) 67.2, Lymph % (Auto) 18.4 L, [place] % (Auto) 10.6 H, Eos % (Auto) 1.7, Baso % (Auto) 0.4, Absolute Neuts (auto) 6.2, Absolute Lymphs (auto) 1.70, Nucleated RBC % 0 07/07/22 04:21: Sodium 134 L, Potassium 4.9, Chloride 102, Carbon Dioxide 21.0, Anion Gap 11, BUN 71 H, Creatinine 8.10 H*, Estim Creat Clear Calc 7.62, Est GFR (MDRD) Af Amer 8 L, Est GFR (MDRD) Non-Af 7 L, BUN/Creatinine Ratio 8.8 L, Glucose 218 H, Calcium 7.0 L 07/07/22 06:33: POC Glucose 161 H 07/07/22 12:26: POC Glucose 149 H Physical Exam Narrative Alert and oriented x3, no apparent distress S1, S2, RRR Lung sounds clear anteriorly Abdomen soft, nontender, positive bowel sounds Tunneled HD catheter dressing clean dry and intact No edema noted bilateral lower legs, feet or arms Right forearm AV fistula positive thrill and bruit noted Assessment & Plan Assessment/Plan (1) ESRD (end stage renal disease): (2) Acute respiratory failure with hypoxia: (3) Right lower lobe pneumonia: (4) Anemia in chronic illness: PLAN: Plan - 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 Patient's first hemodialysis session was on June 24. Patient's outpatient hemodialysis schedule is Wednesday schedule. Patient tolerated dialysis today over 3.5 hours with 2.5 L fluid removal. Initially had been aiming for around 3 L fluid removal but UF amount decreased and backed off when patient became hypotensive. Quite possibly he is now nearing an EDW. Patient feels 215 pounds is dry weight. We will try to get bed weight today. Next dialysis will be on . -anemia of chronic disease and has been receiving BOLIVAR in hospital. Once he is at the kidney center patient will receive BOLIVAR and IV iron. Hemoglobin 9.6 yesterday and 8.3 today. Will give BOLIVAR with HD -Acute hypoxic respiratory failure, multifactorial. Antibiotics have been changed and is on Cefepime. Peripheral blood cultures pending. Blood cultures from 07/02 no growth. Patient recently diagnosed with pulmonary embolism started on Eliquis. -Blood pressures have been acceptable on nifedipine. Due to recent hypotension, will stop nifedipine at this time. -possible move out of ICU
[2022-07-07 17:30] LABS: Bedside Glucose 308 mg/dL (74-106)
--- NOTE | 2022-07-07 17:38 | PN.HOSP_ITS ---
Reason for Visit Reason for Visit: Diagnoses Pneumonia, unspecified organism (07/06/22) Acute respiratory failure with hypoxia (07/06/22) End stage renal disease (07/06/22) Dependence on renal dialysis (07/06/22) Subjective Subjective Patient was seen and examined today, he underwent dialysis again today, he appears medically stable at this time and he is on no oxygen. Objective Data Objective Data Vital Signs: Vital Signs Temp Pulse Resp BP Pulse Ox O2 Del Method FiO2 98.7 F 105 H 23 H 100/53 L 97 Room Air 21 07/07/22 13:00 07/07/22 13:00 07/07/22 13:00 07/07/22 13:00 07/07/22 13:00 07/07/22 13:00 07/07/22 07:00 Oxygen Delivery Method Room Air Weight: 98.8 kg Body Mass Index (BMI) 33.0 Intake & Output: Intake and Output for Last 24 Hours 07/05/22 07/06/22 07/07/22 23:59 23:59 23:59 Intake Total 380 / 500 830 / 830 Output Total 2500 / 2500 2500 / 2500 Balance -2120 / -2000 -1670 / -1670 Lab / Micro Data Result Diagrams: 07/07/22 04:21 07/07/22 04:21 Labs: Laboratory Results - last 24 hr 07/06/22 17:11: POC Glucose 217 H 07/06/22 21:05: POC Glucose 284 H 07/07/22 04:21: WBC 9.3, RBC 3.33 L, Hgb 8.3 L, Hct 27.3 L, MCV 82.0, MCH 24.9 L , MCHC 30.4 L, RDW Std Deviation 46.5 H, RDW Coeff of Yanely 16.4 H, Plt Count 301, MPV 10.7, Immature Gran % (Auto) 1.700 H, Neut % (Auto) 67.2, Lymph % (Auto) 18.4 L, [place] % (Auto) 10.6 H, Eos % (Auto) 1.7, Baso % (Auto) 0.4, Absolute Neuts (auto) 6.2, Absolute Lymphs (auto) 1.70, Nucleated RBC % 0 07/07/22 04:21: Sodium 134 L, Potassium 4.9, Chloride 102, Carbon Dioxide 21.0, Anion Gap 11, BUN 71 H, Creatinine 8.10 H*, Estim Creat Clear Calc 7.62, Est GFR (MDRD) Af Amer 8 L, Est GFR (MDRD) Non-Af 7 L, BUN/Creatinine Ratio 8.8 L, Glucose 218 H, Calcium 7.0 L 07/07/22 06:33: POC Glucose 161 H 07/07/22 12:26: POC Glucose 149 H 07/07/22 17:07: POC Glucose 308 H Physical Exam Const alert, oriented x3, no apparent distress and average body habitus General Appearance: cooperative, well kempt and well developed Orientation / Consciousness: awake, oriented to person, oriented to place and oriented to time HEENT normocephalic and moist oral mucous membranes Eyes PERRL, EOMs intact bilaterally and conjunctivae normal Neck supple, no JVD, thyroid normal and no carotid bruits General: trachea midline Resp normal respiratory effort, no retractions, no use of accessory muscles and clear to auscultation bilaterally Auscultation: Negative for rales, rhonchi or wheezes Cardio regular rate, regular rhythm, S1 normal heart sound, S2 normal heart sound, no murmurs, no rub and no gallops GI normal to inspection, nondistended, normoactive bowel sounds, soft to palpation, non-tender and non-distended Extremity no clubbing, cyanosis or edema Skin no rashes or lesions noted General Skin Exam: no breakdown Neuro oriented x3, CN's II-XII intact bilaterally, moves all extremities, no focal motor deficits and no sensory deficits noted Sensorium / Orientation: awake and alert Speech: speech normal Psych affect normal Assessment & Plan Assessment/Plan (1) Acute respiratory failure with hypoxia: PLAN: Plan 1. Acute hypoxic respiratory failure secondary to fluid overload due to end- stage renal disease on an overlay of Enterobacter cloacae a pneumonia-patient is currently on room air, I have made the patient PCU status. Patient remains on cefepime. #2 fluid overload secondary to end-stage renal disease-patient underwent dialysis today, he will be dialyzed again on #3 essential hypertension-nephrology stopped the patient's Procardia due to low blood pressure today, blood pressure will be monitored #4 end-stage renal disease-patient will be seen by nephrology and undergo dialysis #5 type 2 diabetes-blood sugars will be monitored, sliding scale insulin will be administered #6 Acute pulmonary embolism-patient will be maintained on Eliquis #7 Enterobacter pneumonia-patient remains on cefepime Total clinical time spent by myself addressing patient's medical issues, reviewing all the data, and collaborating with patient's care team: 35 minutes Charges/Coding Visit Charges Inpatient E&M: 40927 Subs Hosp L2
[2022-07-07] MEDS: Atorvastatin Calcium 40 MG Tablet PO (21:53)
[2022-07-07] MEDS: Tacrolimus Anhydrous 1 MG Capsule PO (21:55)
[2022-07-07] MEDS: LORazepam 1 MG Tablet PO (22:01)
[2022-07-07 22:40] LABS: Bedside Glucose 320 mg/dL (74-106)
[2022-07-08 02:29] VITALS: PULSE 81; RESP 12; RESP 23; O2SAT 100
[2022-07-08 04:00] VITALS: BP 129/67; PULSE 84; RESP 21; TEMP 36.4; O2SAT 98
[2022-07-08 05:27] VITALS: BMI 32.5
[2022-07-08 06:29] LABS: Absolute Lymphocyte Count 2.22 X10^3/uL (0.83-4.51); Absolute Neutrophil Count 4.5 X10^3/uL (2.0-7.7); Basophil# 0.05 X10^3/uL; Basophil% 0.6 % (0-1); Eosinophils% 3.6 % (0-5); Hematocrit 27.5 % (40-54); Hemoglobin 8.4 g/dL (13.0-16.5); Lymphocyte # 2.22 X10^3/ul (0.83-4.51); Mean Corp Hgb Conc 30.5 g/dL (32-36); Mean Corpuscular Hgb 25.1 pg (27.0-32.0); Mean Corpuscular Volume 82.3 fL (80-94); Mean Platelet Vol. 10.6 fl (6.2-12.0); Monocyte# 1.03 X10^3/uL; Monocyte% 12.5 % (0-10); NRBC Flagged by Analyzer 0 % (0-5); Neutrophil # 4.46 X10^3/uL (2.7-7.7); Neutrophil % 54.2 % (47-70); Platelet Count 236 K/mm3 (150-450); RBC Distribution Width CV 16.4 % (11.6-14.6); RBC Distribution Width SD 45.2 fl (35.1-43.9); Red Blood Count 3.34 M/mm3 (4.6-6.2); White Blood Count 8.2 K/mm3 (4.4-11.0)
[2022-07-08 06:42] LABS: Albumin, Serum 2.3 g/dL (3.2-5.0); BUN 54 mg/dL (7-18); BUN/Creat Ratio 9.1 RATIO (10-20); Chloride 98 mmol/L (98-107); Creatinine, Serum 5.93 mg/dL (0.70-1.30); EST Glomerular Filtration Rate 10 mL/min (>60); Est Glom Filt Rate - Afr Amer 12 mL/min (>60); Estimated Creatinine Clearance 10.41 ml/min; Glucose 146 mg/dL (74-106); Phosphorus 6.2 mg/dL (2.5-4.9); Potassium 4.4 mmol/L (3.5-5.1); Sodium Level 134 mmol/L (136-145)
[2022-07-08 06:59] VITALS: PULSE 87; RESP 17; O2SAT 97
[2022-07-08] MEDS: Ipratropium/Albuterol Sulfate 3 ML AMPUL.NEB INHALATION (06:59)
[2022-07-08 07:01] LABS: Bedside Glucose 143 mg/dL (74-106)
--- NOTE | 2022-07-08 07:01 | PN.CC_ITS ---
Assessment & Plan Assessment/Plan (1) Acute respiratory failure with hypoxia: (2) Right lower lobe pneumonia: (3) Chronic kidney disease with end stage renal failure on dialysis: PLAN: Plan RECOMMENDATIONS: 1. Complete 7 days of appropriate antibiotics 2. BiPAP with sleep only 3. Await repeat cultures 4. Walking oximetry prior to discharge 5. Hemodialysis timing per nephrology 6. Monitor blood sugars closely 7. Okay to continue anticoagulation at this time 8. Hemodynamically stable on room air. Will sign off from a critical care perspective IMPRESSIONS: 1. Acute hypoxic respiratory failure Clinical suspicion for multifactorial etiology. Patient did have Enterobacter cloacae grown previous culture and was discharged on doxycycline. Patient currently is on cefepime with increased right lower lobe infiltrate and procalcitonin on presentation. Patient has not experienced a significant hypotension following change in antibiotics. Repeat cultures have no growth to date. Likely okay only needs BiPAP with sleep. Patient may also have an element of fluid overload secondary to end-stage renal disease. Nephrology has been consulted and patient has benefited from volume removal. No significant hypotension has been noted. Patient also has a recent diagnosis of pulmonary embolism, but reportedly has been compliant with Eliquis therapy. 2. Diabetes mellitus/ESRD/hypertension/advanced age/repeated hospitalization Complicates care, management, recovery and prognosis. We will need to monitor blood sugars closely. Patient may have variable p.o. intake secondary to problem #1. Patient okay to remain on current blood pressure medications. Patient will need PT/OT for evaluation his debility is a concern given his repeated hospitalizations. Patient has been a full code previously. Okay to leave the intensive care unit from my perspective Subjective Subjective Patient did well overnight. Patient did have hemodialysis yesterday with 2.5 L removed, 5 L total over hospitalization, and has been tolerating room air. Patient did request BiPAP for sleep, but has not required it for respiratory distress. Patient is not reporting any pain at this time. Objective Data Objective Data Vital Signs: Vital Signs Temp Pulse Resp BP Pulse Ox O2 Del Method FiO2 36.4 C L 84 21 H 129/67 H 98 Bi-pap 21 07/08/22 04:00 07/08/22 04:00 07/08/22 04:00 07/08/22 04:00 07/08/22 04:00 07/08/22 04:00 07/08/22 02:29 Oxygen Delivery Method Bi-pap Weight: 97.568 kg Body Mass Index (BMI) 32.5 Intake & Output: Intake and Output for Last 24 Hours 07/06/22 07/07/22 07/08/22 23:59 23:59 23:59 Intake Total 380 / 500 950 / 950 Output Total 2500 / 2500 2500 / 2500 0 / 0 Balance -2120 / -2000 -1550 / -1550 0 / 0 Lab / Micro Data Attestation: I reviewed the patient's lab results. Result Diagrams: 07/08/22 06:21 07/08/22 06:21 Labs: Laboratory Results - last 24 hr 07/07/22 12:26: POC Glucose 149 H 07/07/22 17:07: POC Glucose 308 H 07/07/22 22:08: POC Glucose 320 H 07/08/22 06:21: WBC 8.2, RBC 3.34 L, Hgb 8.4 L, Hct 27.5 L, MCV 82.3, MCH 25.1 L , MCHC 30.5 L, RDW Std Deviation 45.2 H, RDW Coeff of Yanely 16.4 H, Plt Count 236, MPV 10.6, Immature Gran % (Auto) 2.100 H, Neut % (Auto) 54.2, Lymph % (Auto) 27.0, [place] % (Auto) 12.5 H, Eos % (Auto) 3.6, Baso % (Auto) 0.6, Absolute Neuts (auto) 4.5, Absolute Lymphs (auto) 2.22, Nucleated RBC % 0 07/08/22 06:21: Sodium 134 L, Potassium 4.4, Chloride 98, Carbon Dioxide 25.0, BUN 54 H, Creatinine 5.93 H, Estim Creat Clear Calc 10.41, Est GFR (MDRD) Af Amer 12 L, Est GFR (MDRD) Non-Af 10 L, BUN/Creatinine Ratio 9.1 L, Glucose 146 H , Calcium 7.0 L, Phosphorus 6.2 H, Albumin 2.3 L 07/08/22 06:30: POC Glucose 143 H Physical Exam Const oriented x3 and no apparent distress Constitutional Narrative: Resting comfortably. Good BiPAP synchrony while sleeping. General Appearance: cooperative, well kempt and well developed HEENT normocephalic, head/scalp atraumatic, hearing grossly normal bilaterally and moist oral mucous membranes Eyes PERRL, EOMs intact bilaterally and conjunctivae normal Neck supple, no JVD, thyroid normal and no carotid bruits General: trachea midline Chest Chest Narrative: Left subclavian tunneled hemodialysis line is clean, dry and intact. Resp no use of accessory muscles Auscultation: diminished lung sounds right lower; Negative for rales, rhonchi or wheezes Cardio regular rate, regular rhythm, S1 normal heart sound, S2 normal heart sound, no murmurs, no rub and no gallops GI normal to inspection, nondistended, normoactive bowel sounds, soft to palpation, non-tender and non-distended Extremity no clubbing, cyanosis or edema Skin no rashes or lesions noted Skin Narrative: Mild ecchymosis noted in left clavicular region General Skin Exam: no breakdown Neuro oriented x3, CN's II-XII intact bilaterally, no focal motor deficits and no sensory deficits noted Psych affect normal Charges/Coding Visit Charges Inpatient E&M: 06730 Subs Hosp L2
--- NOTE | 2022-07-08 08:29 | DCINST_ITS ---
Discharge Instructions Diet Discharge Diet: 1800 Calorie Control Diet Activity Discharge Activity: Return to Normal Activity Weight Bearing Status: Full weight bearing Follow Up Care Test Results: Test results from this visit will be discussed in further detail at your follow- up appointment, if applicable. Discharge Plan Admission Admit Date/Time: 07/06/22 08:48 Primary Reason for Your Visit: respiratory failure, pneumonia Attending Provider: Yash Hernandez Primary Care Provider: Sy Sharma [facility] [employer] Providers: Errol Batres ; Brian Smith ; Dominguez Steven ; Ian Alvarado ; Bhavani Ramos NP ; Kristina Zapata Discharge Orders/Prescriptions Prescriptions: New Eliquis 5 mg Tablet 5 mg PO BID Qty: 0 0RF levofloxacin 250 mg tablet 250 mg PO DAILY Qty: 5 0RF Rx Instructions: start on 07/08/22 Continued aspirin 81 mg tablet,chewable 81 mg PO DAILY glimepiride 4 mg tablet 4 mg PO DAILY prednisone 5 mg tablet 5 mg PO DAILY tacrolimus 0.5 mg capsule 2 mg PO DAILY atorvastatin 40 MG tablet 40 mg PO QHS dulaglutide 1.5 MG/0.5 ML pen injector 1.5 mg SQ REYNA Rx Instructions: takes on Wednesday ferrous sulfate 325 MG tablet 325 mg PO DAILY tacrolimus 1 mg Capsule 1 mg PO QHS lorazepam [Ativan] 1 mg tablet 1 mg PO TID PRN (Reason: anxiety) Qty: 10 0RF Discontinued nifedipine [Procardia XL] 60 mg Tablet Extended Release 24hr 60 mg PO DAILY Hold Instructions: CHECK home BP and if running > 140 SBP restart Eliquis DVT-PE Treat 30D Start 5 mg (74 tabs) tablets,dose pack 5 mg PO BID Qty: 74 0RF Rx Instructions: take 10mg (2 tabs twice daily) for 7 days (till 07/10/2022), then continue with 5mg (one tablet) twice daily doxycycline hyclate 100 mg capsule 100 mg PO BID Qty: 10 0RF Referrals / Follow Up: Sy Sharma Chi, MD [Primary Care Provider] - Within 2 Weeks Disposition Disposition (needs filled in before D/C Order can be placed): Home, Self Care
[2022-07-08] MEDS: Tacrolimus 0.5 MG Capsule 2 MG PO (08:37)
[2022-07-08] MEDS: Aspirin 81 MG TAB.CHEW PO (08:37)
[2022-07-08] MEDS: Ferrous Sulfate 325 MG Tablet PO (08:37)
[2022-07-08] MEDS: APIXABAN 5 MG TABLET PO (08:37)
[2022-07-08] MEDS: predniSONE 5 MG Tablet PO (08:37)
--- NOTE | 2022-07-08 08:59 | DS.PCM_ITS ---
Providers Date of Admission: 07/06/22 Date of Discharge: 07/08/22 Primary Care Physician: Dr. Sy Sharma MD Consultations 07/06/22 09:11 Consult: Library Supervisor / Pulmonary Medicine Routine Consulting Provider: Pulmonary Medicine wan Seneca Reason for Consult: resp failure EMERGENT Consult: No Notified: Yes Date Notified: 07/06/22 Time Notified: 08:53 Method of Notification: Verbal Consult: Nephrology Routine Consulting Provider: Kristina Zapata Reason for Consult: ESRD EMERGENT Consult: No Notified: Yes Date Notified: 07/06/22 Time Notified: 08:55 Method of Notification: Verbal Reason For Visit: ACUTE RESPIRATORY FAILURE Diagnosis Discharge Diagnosis (1) Acute respiratory failure with hypoxia: Status: Resolved Code(s): J96.01 - Acute respiratory failure with hypoxia (2) Right lower lobe pneumonia: Status: Inactive Code(s): J18.9 - Pneumonia, unspecified organism (3) Chronic kidney 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 Acute hypoxic respiratory failure secondary to fluid overload due to end- stage renal disease on an overlay of Enterobacter cloacae pneumonia-patient is currently on room air, I have made the patient PCU status. Patient remains on cefepime. #2 fluid overload secondary to end-stage renal disease-patient underwent dial ysis today, he will be dialyzed again on #3 essential hypertension-nephrology stopped the patient's Procardia due to low blood pressure today, blood pressure will be monitored #4 end-stage renal disease-patient will be seen by nephrology and undergo dialysis #5 type 2 diabetes-blood sugars will be monitored, sliding scale insulin will be administered #6 Acute pulmonary embolism-patient will be maintained on Eliquis #7 Enterobacter pneumonia-patient remains on cefepime Total clinical time spent by myself addressing patient's medical issues, reviewing all the data, and collaborating with patient's care team: 35 minutes Medications at Discharge Home Medications atorvastatin 40 mg tablet 40 mg PO QHS CHOLESTEROL 06/23/17 dulaglutide 1.5 mg/0.5 mL subcutaneous pen injector 1.5 mg SQ REYNA DIABETES 06/23/17 ferrous sulfate 325 mg (65 mg iron) tablet 325 mg PO DAILY supplement 10/24/18 aspirin 81 mg chewable tablet 81 mg PO DAILY heart health 10/02/20 glimepiride 4 mg tablet 4 mg PO DAILY diabetes 10/02/20 prednisone 5 mg tablet 5 mg PO DAILY steroid 10/02/20 tacrolimus 0.5 mg capsule, immediate-release 2 mg PO DAILY immunosuppresive 10/02/20 tacrolimus 1 mg capsule, immediate-release 1 mg PO QHS immunosuppresive 03/11/21 lorazepam 1 mg tablet (Ativan) 1 mg PO TID PRN anxiety #10 tabs 01/27/22 apixaban 5 mg tablet (Eliquis) 5 mg PO BID #0 tabs 07/08/22 levofloxacin 250 mg tablet 250 mg PO DAILY #5 tabs 07/08/22 Hospital Course Operations None Procedures Dialysis Summary of Care Provided Minutes Spent on Discharge: 32 Hospital Course: This 77-year-old male was seen in the emergency room at [facility] [place] complaining of increased shortness of breath over period of several days, he had been recently released from the hospital after undergoing dialysis and being diagnosed with a pneumonia. Patient required BiPAP in the emergency room to stabilize his pulse ox, lab revealed an elevated white blood cell count at 16.6, creatinine was elevated at 6.53 and BUN was 44. Patient's chest x-ray revealed bilateral pulmonary infiltrates slightly worse on the right. Patient was admitted to the ICU for acute hypoxic respiratory failure, fluid overload, and pneumonia, he was placed on IV antibiotics and seen emergently by nephrology who dialyzed the patient. Over the next 2 days, patient's respiratory status stabilized and he was taken off oxygen. He was seen in consultation by nephrology and critical care. On 07/08/2022, patient was seen and examined: On examination he appeared in good health and spirits. Vital signs as documented. Skin warm and dry and without overt rashes. Neck without JVD, neck was supple, trachea midline, thyroid was normal. Lungs clear bilaterally, normal air movement was noted. Heart exam notable for regular rhythm, normal sounds and absence of murmurs, rubs or gallops. Abdomen unremarkable and without evidence of organomegaly, masses, or abdominal aortic enlargement. Bowel sounds are present, abdomen is not distended. Extremities nonedematous, no cyanosis was noted, no clubbing was noted. Neuro: Cranial nerves II through XII are grossly intact, no focal motor deficits were noted, sensation to light touch and pinprick intact, motor exam 5/5 throughout. Psych: Patient is alert and oriented x3, he does not appear anxious or depressed, he does not appear agitated. Patient appear to be stable for discharge on 07/08/2022. Weight / BMI Weight Weight: 97.568 kg Body Mass Index (BMI) 32.5 ABG / Lab / Microbiology Data Result Diagrams: 07/08/22 06:21 07/08/22 06:21 Laboratory: Laboratory Results - last 24 hr 07/07/22 12:26: POC Glucose 149 H 07/07/22 17:07: POC Glucose 308 H 07/07/22 22:08: POC Glucose 320 H 07/08/22 06:21: WBC 8.2, RBC 3.34 L, Hgb 8.4 L, Hct 27.5 L, MCV 82.3, MCH 25.1 L , MCHC 30.5 L, RDW Std Deviation 45.2 H, RDW Coeff of Yanely 16.4 H, Plt Count 236, MPV 10.6, Immature Gran % (Auto) 2.100 H, Neut % (Auto) 54.2, Lymph % (Auto) 27. 0, [place] % (Auto) 12.5 H, Eos % (Auto) 3.6, Baso % (Auto) 0.6, Absolute Neuts (auto) 4.5, Absolute Lymphs (auto) 2.22, Nucleated RBC % 0 07/08/22 06:21: Sodium 134 L, Potassium 4.4, Chloride 98, Carbon Dioxide 25.0, BUN 54 H, Creatinine 5.93 H, Estim Creat Clear Calc 10.41, Est GFR (MDRD) Af Amer 12 L, Est GFR (MDRD) Non-Af 10 L, BUN/Creatinine Ratio 9.1 L, Glucose 146 H , Calcium 7.0 L, Phosphorus 6.2 H, Albumin 2.3 L 07/08/22 06:30: POC Glucose 143 H D/C Instructions Discharge Diet: 1800 Calorie Control Diet Weight Bearing Status: Full weight bearing Meaningful Use Info Meaningful Use Diagnoses (Choose all that apply): None applicable Discharge Plan Admission Admit Date/Time: 07/06/22 08:48 Primary Reason for Your Visit: respiratory failure, pneumonia Attending Provider: Yash Hernandez Primary Care Provider: Sy Sharma Chi Consulting Providers: Errol Batres ; Brian Smith ; Dominguez Steven ; Ian Alvarado ; Bhavani Ramos NP ; Kristina Zapata Discharge Orders/Prescriptions Prescriptions: New Eliquis 5 mg Tablet 5 mg PO BID Qty: 0 0RF levofloxacin 250 mg tablet 250 mg PO DAILY Qty: 5 0RF Rx Instructions: start on 07/08/22 Continued aspirin 81 mg tablet,chewable 81 mg PO DAILY glimepiride 4 mg tablet 4 mg PO DAILY prednisone 5 mg tablet 5 mg PO DAILY tacrolimus 0.5 mg capsule 2 mg PO DAILY atorvastatin 40 MG tablet 40 mg PO QHS dulaglutide 1.5 MG/0.5 ML pen injector 1.5 mg SQ REYNA Rx Instructions: takes on Wednesday ferrous sulfate 325 MG tablet 325 mg PO DAILY tacrolimus 1 mg Capsule 1 mg PO QHS lorazepam [Ativan] 1 mg tablet 1 mg PO TID PRN (Reason: anxiety) Qty: 10 0RF Discontinued nifedipine [Procardia XL] 60 mg Tablet Extended Release 24hr 60 mg PO DAILY Hold Instructions: CHECK home BP and if running > 140 SBP restart Eliquis DVT-PE Treat 30D Start 5 mg (74 tabs) tablets,dose pack 5 mg PO BID Qty: 74 0RF Rx Instructions: take 10mg (2 tabs twice daily) for 7 days (till 07/10/2022), then continue with 5mg (one tablet) twice daily doxycycline hyclate 100 mg capsule 100 mg PO BID Qty: 10 0RF Referrals / Follow Up: Sy Sharma Chi, MD [Primary Care Provider] - Within 2 Weeks Disposition Disposition (needs filled in before D/C Order can be placed): Home, Self Care Charges/Coding Visit Charges Inpatient E&M: 92133 Disch Hosp >30min
--- NOTE | 2022-07-08 09:15 | RAD_ITS ---
STUDY: X-RAY CHEST REASON FOR EXAM: Male, 77 years old. Pneumonia follow-up. TECHNIQUE: Frontal and lateral views of the chest. COMPARISON: July 06, 2022. FINDINGS: Left subclavian catheter with tip projected over the lower SVC. Cardiomegaly with dual lead cardiac pacer, aortic tortuosity with calcification and hyperinflation. Clearing of the previously described right upper and lower lobe opacities. No demonstrated abnormality of the visualized soft tissue structures of the upper abdomen. RAD/Chest PA and Lateral IMPRESSION: Cardiomegaly with hyperinflation and clearing of the previously described patchy opacities. No acute finding. Electronically Signed: Avery Sanchez, at 11:52 EDT ,
[2022-07-08 09:42] VITALS: BP 107/41; PULSE 98; RESP 22; TEMP 36.8; O2SAT 96
[2022-07-08 09:49] LABS: Pathologist Review Reviewed
--- NOTE | 2022-07-08 09:55 | PCM.PN.REN ---
Subjective Subjective Resting quietly in bed, no complaints today. No overnight events. Objective Data Objective Data Vital Signs: Vital Signs Temp Pulse Resp BP Pulse Ox O2 Del Method FiO2 98.2 F 98 22 H 107/41 L 96 Room Air 21 07/08/22 09:42 07/08/22 09:42 07/08/22 09:42 07/08/22 09:42 07/08/22 09:42 07/08/22 09:42 07/08/22 02:29 Oxygen Delivery Method Room Air Weight: 97.568 kg Body Mass Index (BMI) 32.5 Intake & Output: Intake and Output for Last 24 Hours 07/06/22 07/07/22 07/08/22 23:59 23:59 23:59 Intake Total 380 / 500 950 / 950 250 / 250 Output Total 2500 / 2500 2500 / 2500 0 / 0 Balance -2120 / -2000 -1550 / -1550 250 / 250 Lab / Micro Data Result Diagrams: 07/08/22 06:21 07/08/22 06:21 Labs: Laboratory Results - last 24 hr 07/06/22 06:20: Diff Path Review Reviewed 07/07/22 12:26: POC Glucose 149 H 07/07/22 17:07: POC Glucose 308 H 07/07/22 22:08: POC Glucose 320 H 07/08/22 06:21: WBC 8.2, RBC 3.34 L, Hgb 8.4 L, Hct 27.5 L, MCV 82.3, MCH 25.1 L, MCHC 30.5 L, RDW Std Deviation 45.2 H, RDW Coeff of Yanely 16.4 H, Plt Count 236, MPV 10.6, Immature Gran % (Auto) 2.100 H, Neut % (Auto) 54.2, Lymph % (Auto) 27.0, [place] % (Auto) 12.5 H, Eos % (Auto) 3.6, Baso % (Auto) 0.6, Absolute Neuts (auto) 4.5, Absolute Lymphs (auto) 2.22, Nucleated RBC % 0 07/08/22 06:21: Sodium 134 L, Potassium 4.4, Chloride 98, Carbon Dioxide 25.0, BUN 54 H, Creatinine 5.93 H, Estim Creat Clear Calc 10.41, Est GFR (MDRD) Af Amer 12 L, Est GFR (MDRD) Non-Af 10 L, BUN/Creatinine Ratio 9.1 L, Glucose 146 H, Calcium 7.0 L, Phosphorus 6.2 H, Albumin 2.3 L 07/08/22 06:30: POC Glucose 143 H Micro: Microbiology 07/06/22 07:38 Blood Culture (Wb) - Left Wrist Blood Culture - Preliminary No growth in 48 hours. 07/06/22 07:15 Blood Culture (Wb) - Left Hand Blood Culture - Preliminary No growth in 48 hours. 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 Patient's first hemodialysis session was on June 24. Patient's outpatient hemodialysis schedule is Wednesday schedule. Patient tolerated dialysis and sequential treatment Wednesday and Wednesday with ~4.5L fluid removed last 2 days. Patient became hypotensive with HD yesterday. Quite possibly he is now nearing an EDW. Patient feels 215 pounds is dry weight. No acute indication for BEHAVIORAL SPECIALIST today. Next dialysis will be on . -anemia of chronic disease and has been receiving BOLIVAR in hospital. Once he is at the kidney center patient will receive BOLIVAR and IV iron. Hemoglobin 8.4 today. -Acute hypoxic respiratory failure, multifactorial. Antibiotics have been changed and is on Cefepime. Peripheral blood cultures no growth. Patient recently diagnosed with pulmonary embolism started on Eliquis. -Blood pressures had been acceptable on nifedipine but now lower bps therefore stopped nifedipine, can keep off nifedipine at discharge and will follow bps at kidney center -disposition: ok for discharge per renal and possible discharge to home today. Discussed with Dr. Hernandez.
--- NOTE | 2022-07-08 10:23 | CASEMGMT ---
NORMA SANCHEZ updated that patient will be discharging to home today. NORMA CM in to discuss needs with patient. Milena on phone with patient. Patient feels that he does not need HHC or therapy at this time. Patient to be tested for home oxygen, if qualifies CM to assist with setup. NORMA CM updated patient and that should they reconsider HHC or outpatient therapy after discharge to follow-up with PCP. Patient and voiced understanding. Patient and had no further questions or concerns at this time.
[2022-07-08 10:41] VITALS: O2SAT 100; O2SAT 96
== END 2022-07-08 11:55 | disposition home or self-care (01) | DRG 177 ==
LOC: ED 07:12 → ICU 09:25
PROVIDERS: Internal Medicine Critical Care Medicine; Admitting Provider Internal Medicine; Emergency Provider Emergency Medicine; PCP Family Medicine Geriatric Medicine; Visit Provider Internal Medicine
DX: J15.6 Pneumonia due to other Gram-negative bacteria (principal); J96.01 Acute respiratory failure with hypoxia; I26.99 Other pulmonary embolism without acute cor pulmonale; N18.6 End stage renal disease; T86.12 Kidney transplant failure; I12.0 Hypertensive chronic kidney disease with stage 5 chronic kidney disease or end stage renal disease; D63.1 Anemia in chronic kidney disease; E11.22 Type 2 diabetes mellitus with diabetic chronic kidney disease; Z99.2 Dependence on renal dialysis; E87.70 Fluid overload, unspecified; E78.00 Pure hypercholesterolemia, unspecified; X58.XXXA Exposure to other specified factors, initial encounter; Z95.0 Presence of cardiac pacemaker; Z79.82 Long term (current) use of aspirin; Z79.84 Long term (current) use of oral hypoglycemic drugs; Z79.899 Other long term (current) drug therapy; Z86.718 Personal history of other venous thrombosis and embolism; Z87.891 Personal history of nicotine dependence
CPT/HCPCS: 71045; 71046; 80048; 80069; 82962; 83605; 83735; 84100; 84145; 85025; 87040; 90937; 94002; 94003; 94640; 97162; 97166; 97802; 99252; 99285; J7030; J7050; A4216; G0257; G0463; J3490

== ENCOUNTER 2022-07-14 07:50 | Emergency (ER) | payer OTHER, SELFPAY ==
[2022-07-14] VITALS (9 sets, daily range): BP systolic 112–131; BP diastolic 22–79; PULSE 56–166; RESP 12–69; TEMP 35.5–35.8; O2SAT 92; BMI 32.3
--- NOTE | 2022-07-14 07:53 | NURSING ---
749 CODE DAVION CALLED
[2022-07-14] MEDS: fentaNYL 100 MCG/2 ML Ampul 50 MCG IV (08:20)
--- NOTE | 2022-07-14 08:20 | RAD_ITS ---
STUDY: X-RAY CHEST REASON FOR EXAM: Male, 77 years old. Dyspnea/ post CPR TECHNIQUE: Single AP portable view of the chest. COMPARISON: Comparison is made with prior study dated July 08, 2022. FINDINGS: An endotracheal tube is in situ. The tip is at 3.6 times approximately the bi. An orogastric tube is seen with the tip below the left hemidiaphragm. A left-sided double-lumen catheter seen with the tip at the junction of the superior vena cava and right atrium. Bilateral airspace disease in the perihilar regions as well as in the upper lobes suggestive of pulmonary edema. There is no demonstrated pleural abnormality. There is mild cardiac enlargement. A left-sided dual-chamber pacemaker is seen. Normal mediastinum and yoel. Normal visualized pulmonary arteries. There is atherosclerotic calcification of the aortic arch with tortuosity. There are diffuse degenerative changes of the visualized thoracic spine. Normal visualized ribs, clavicles, and shoulders. There is no demonstrated abnormality of the visualized soft tissue structures of the upper abdomen. RAD/Chest 1 View (Portable) IMPRESSION: All the support tubes are in good position. Bilateral airspace disease as described suggests pulmonary edema. Electronically Signed: Kelechi Pleitez MD at 8:37 EDT ,
[2022-07-14 08:23] LABS: Mucous, Urine 0 SEEN /hpf (<or=2+)
[2022-07-14 08:25] LABS: Color, Urine Yellow (Yellow); Glucose, Dipstick 100 mg/dl (Normal); Ketone-Dipstick Negative (Negative); Leukocyte Esterase-Dipstick 25 /ul (Negative); Nitrite-Dipstick Negative (Negative); Occult Blood-Urine 25 /ul (Negative); Protein-Dipstick 500 mg/dl (Negative); Urine Bilirubin Dipstick Negative (Negative); Urine Clarity Sl. Cloudy (Clear); Urine Urobilinogen Normal (Normal)
--- NOTE | 2022-07-14 08:25 | NURSING ---
CODE BLUE CALLED
[2022-07-14 08:31] LABS: Absolute Lymphocyte Count 8.64 X10^3/uL (0.83-4.51); Absolute Neutrophil Count 8.4 X10^3/uL (2.0-7.7); Basophil# 0.15 X10^3/uL; Basophil% 0.7 % (0-1); Eosinophils% 3.5 % (0-5); Hemoglobin 10.3 g/dL (13.0-16.5); Lymphocyte # 8.64 X10^3/ul (0.83-4.51); Mean Corp Hgb Conc 29.4 g/dL (32-36); Mean Corpuscular Volume 88.4 fL (80-94); Mean Platelet Vol. 11.9 fl (6.2-12.0); Monocyte% 9.5 % (0-10); NRBC Flagged by Analyzer 0.4 % (0-5); Neutrophil # 8.39 X10^3/uL (2.7-7.7); Neutrophil % 41.7 % (47-70); POSITIVE DIFFERENTIAL YES; POSITIVE MORPHOLOGY YES; Platelet Count 287 K/mm3 (150-450); RBC Distribution Width CV 17.8 % (11.6-14.6); RBC Distribution Width SD 53.6 fl (35.1-43.9); Red Blood Count 3.96 M/mm3 (4.6-6.2); White Blood Count 20.1 K/mm3 (4.4-11.0)
[2022-07-14 08:32] LABS: Bacteria RARE /hpf (None Seen); Red Blood Cells-Urine 0-5 SEEN /hpf (0-5); Squamous Epithelial Cells - UA 0-5 SEEN /hpf (0-5); White Blood Cells 5-10 SEEN /hpf (0-5)
[2022-07-14 08:32] LABS: Differential Indicated SCAN CRITERIA MET
[2022-07-14 08:48] LABS: ALB/GLOB Ratio 0.7 RATIO (0.9-2.4); AST(SGOT) 110 U/L (15-37); Alanine Aminotransfer ALT/SGPT 73 U/L (16-61); Albumin, Serum 2.5 g/dL (3.2-5.0); Alkaline Phosphatase 79 U/L (45-117); Anion Gap 18 (5-15); BUN 49 mg/dL (7-18); BUN/Creat Ratio 6.1 RATIO (10-20); Calcium,Total 10.2 mg/dL (8.5-10.1); Chloride 105 mmol/L (98-107); Creatinine, Serum 8.03 mg/dL (0.70-1.30); EST Glomerular Filtration Rate 7 mL/min (>60); Est Glom Filt Rate - Afr Amer 9 mL/min (>60); Estimated Creatinine Clearance 8.72 ml/min; Globulin 3.7 g/dL (2.2-4.2); Glucose 345 mg/dL (74-106); Potassium 4.6 mmol/L (3.5-5.1); Protein, Total 6.2 g/dL (6.4-8.2); Sodium Level 140 mmol/L (136-145); Troponin-I HS (w/2H Reflex) 91 pg/mL (3.0-78.0)
--- NOTE | 2022-07-14 08:55 | EDS_ITS ---
HPI History of Present Illness Chief Complaint: CPR Informant: EMS Onset/Context/Timing Onset: Today Context: Sudden Onset Timing: Continuous Associated Symptoms Associated Symptoms: cough Narrative Narrative: Patient presents in respiratory distress and unresponsive. EMS was called for respiratory distress. EMS placed the patient on BiPAP. Upon arrival to the emergency department, the patient became unresponsive and lost his pulse. EMS initiated CPR. EMS reports that the patient was coughing up some pink frothy sputum. states patient has a history of chronic kidney disease and has dialysis on Tuesdays, , and Saturdays. 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 [facility] Medical History Anemia Anemia of chronic renal failure, stage 4 (severe) ARF (acute renal failure) Back pain Bradycardia Cardiology follow-up encounter Central line complication Chronic kidney disease, stage IV (severe) CKD (chronic kidney disease) stage 5, GFR less than 15 ml/min Diabetes DM2 (diabetes mellitus, type 2) DVT (deep venous thrombosis) Essential hypertension Former smoker Gastric reflux High cholesterol High degree atrioventricular block History of complete heart block History of echocardiogram History of pacemaker History of renal disease History of steroid therapy History of stress test Hyperlipidemia Hypertensive urgency Kidney transplant candidate (01/31/19) Kidney transplant complication MRSA infection Pre-syncope Right lower lobe pneumonia Second degree heart block Type 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 Wears glasses Home Medications atorvastatin 40 mg tablet 40 mg PO QHS CHOLESTEROL 06/23/17 [History Last Taken 03/10/21 15:00] dulaglutide 1.5 mg/0.5 mL subcutaneous pen injector 1.5 mg SQ REYNA DIABETES 06/23/17 [History Last Taken 03/09/21] ferrous sulfate 325 mg (65 mg iron) tablet 325 mg PO DAILY supplement 10/24/18 [History Last Taken 03/10/21 09:00] aspirin 81 mg chewable tablet 81 mg PO DAILY heart health 10/02/20 [History Last Taken 03/10/21 09:00] glimepiride 4 mg tablet 4 mg PO DAILY diabetes 10/02/20 [History Last Taken 03/10/21 09:00] prednisone 5 mg tablet 5 mg PO DAILY steroid 10/02/20 [History Last Taken 03/10/21 09:00] tacrolimus 0.5 mg capsule, immediate-release 2 mg PO DAILY immunosuppresive 10/02/20 [History Last Taken 03/10/21 15:00] tacrolimus 1 mg capsule, immediate-release 1 mg PO QHS immunosuppresive 03/11/21 [History Last Taken 03/10/21] lorazepam 1 mg tablet (Ativan) 1 mg PO TID PRN anxiety #10 tabs 01/27/22 [Rx Last Taken Unknown] apixaban 5 mg tablet (Eliquis) 5 mg PO BID #0 tabs 07/08/22 [Rx Last Taken Unknown] levofloxacin 250 mg tablet 250 mg PO DAILY #5 tabs 07/08/22 [Rx Last Taken Unknown] Allergy/AdvReac Type Severity Reaction Status Date / Time No Known Allergies Allergy Verified 07/14/22 08:14 Family History Father Pneumonia Mother CVA (cerebral vascular accident) Surgical History History of permanent cardiac pacemaker placement (03/11/21) Renal transplant recipient S/P arteriovenous (AV) fistula creation S/P colonoscopy Status post kidney transplant [place] teeth removed Social History household members: spouse Smoking Status: Former smoker how long ago did patient quit smoking: Quit 1993, 0.5 pk/day until quit. second hand exposure: Yes alcohol intake: current alcohol intake frequency: a few times a month substance use type: does not use ROS ROS ED Review of Systems ROS Unobtainable: due to endotracheal tube, due to mental condition and due to mental status EXAM Physical Exam Const Vital Signs: 07/14/22 08:00 07/14/22 08:03 07/14/22 08:06 Temperature 96.4 F L Temperature Source Temporal Pulse Rate 121 H Pulse Rate [3] Pulse Rate [5] Pulse Rate [6] Respiratory Rate 51 H Respiratory Rate [3] Respiratory Rate [5] Respiratory Rate [6] Respiratory Effort Mechanically Ventilated Blood Pressure 128/79 H Blood Pressure [5] Blood Pressure [6] Blood Pressure Mean 95 Pulse Ox Oxygen Delivery Method Ambu-Bag Fraction of Inspired Oxygen (FIO2) 07/14/22 08:11 07/14/22 08:13 07/14/22 08:14 Temperature 95.9 F L Temperature Source Core Pulse Rate 100 Pulse Rate [3] Pulse Rate [5] Pulse Rate [6] Respiratory Rate 27 H Respiratory Rate [3] Respiratory Rate [5] Respiratory Rate [6] Respiratory Effort Blood Pressure 128/79 H Blood Pressure [5] Blood Pressure [6] Blood Pressure Mean 95 Pulse Ox 92 92 Oxygen Delivery Method Mechanical Ventilator Mechanical Ventilator Fraction of Inspired Oxygen (FIO2) 07/14/22 08:28 07/14/22 07:50 07/14/22 08:05 Temperature Temperature Source Pulse Rate 148 H 108 H Pulse Rate [3] 71 Pulse Rate [5] 110 H Pulse Rate [6] 117 H Respiratory Rate 23 H 22 H Respiratory Rate [3] 42 H Respiratory Rate [5] 35 H Respiratory Rate [6] 18 Respiratory Effort Blood Pressure 125/67 H Blood Pressure [5] 131/22 H Blood Pressure [6] 131/22 H Blood Pressure Mean 86 Pulse Ox Oxygen Delivery Method Ambu-Bag Fraction of Inspired Oxygen (FIO2) 100 Positive well nourished and well developed General Appearance ED: well developed HEENT atraumatic Neck no lymphadenopathy Resp Resp Narrative: There were diminished breath sounds bilaterally. There is frothy sputum noted. Cardio regular rhythm Rate: tachycardic GI non-distended Palpation: soft Neuro Neuro Narrative: Patient is unresponsive and nonverbal. Skin Lesions: no lesions Rashes: no rashes MDM MDM MDM Narrative Medical decision making narrative: Differential diagnosis includes pulmonary edema, electrolyte abnormalities, pulmonary embolism, pneumonia, and sepsis. EKG will be obtained to assess for cardiac dysrhythmia and cardiac ischemia. Chest x-ray will be obtained to assess for pneumonia and congestive heart failure. CBC will be obtained to assess for leukocytosis and anemia. Comprehensive metabolic profile will be obtained to assess for electrolyte abnormality, renal function, and hepatic function. Lactic acid will be obtained to assess for sepsis. Urinalysis will be obtained to assess for urinary tract infection and hematuria. History & Record Review Discussion w/independent historian: EMS personnel, Family and Significant other Additional record(s) reviewed:: Prior inpatient record Lab Data Attestation: I reviewed the patient's lab results. Lab results narrative: CBC was reviewed and showed a leukocytosis of 20.1. There is a mild anemia with a hemoglobin of 10.3 hematocrit 35.0. Comprehensive metabolic profile was reviewed. CO2 was low at 17. BUN was 49 and creatinine was 8.03. Glucose was elevated at 345. Potassium was normal at 4.6. Lactate was reviewed and was 12.0. Urinalysis was reviewed. There is leukocyte esterase of 25 with 5-10 white blood cells. There is rare bacteria. Labs: Laboratory Results - last 24 hr 07/14/22 07/14/22 07/14/22 08:05 08:05 08:05 WBC 20.1 H RBC 3.96 L Hgb 10.3 L Hct 35.0 L MCV 88.4 MCH 26.0 L MCHC 29.4 L RDW Std Deviation 53.6 H RDW Coeff of Yanely 17.8 H Plt Count 287 MPV 11.9 Immature Gran % (Auto) 1.600 H Neut % (Auto) 41.7 L Lymph % (Auto) 43.0 H [place] % (Auto) 9.5 Eos % (Auto) 3.5 Baso % (Auto) 0.7 Absolute Neuts (auto) 8.4 H Absolute Lymphs (auto) 8.64 H Nucleated RBC % 0.4 Sodium 140 Potassium 4.6 Chloride 105 Carbon Dioxide 17.0 L Anion Gap 18 H BUN 49 H Creatinine 8.03 H* Estim Creat Clear Calc 8.72 Est GFR (MDRD) Af Amer 9 L Est GFR (MDRD) Non-Af 7 L BUN/Creatinine Ratio 6.1 L Glucose 345 H Lactic Acid 12.0 H* Calcium 10.2 H Total Bilirubin 0.30 AST 110 H ALT 73 H Alkaline Phosphatase 79 Troponin I High Sens 91 H Total Protein 6.2 L Albumin 2.5 L Globulin 3.7 Albumin/Globulin Ratio 0.7 L Urine Color Urine Clarity Urine pH Ur Specific Gilbert Urine Protein Urine Glucose (UA) Urine Ketones Urine Occult Blood Urine Nitrite Urine Bilirubin Urine Urobilinogen Ur Leukocyte Esterase Urine RBC Urine WBC Ur Squamous Epith Cells Urine Bacteria Urine Mucus 07/14/22 08:12 WBC RBC Hgb Hct MCV MCH MCHC RDW Std Deviation RDW Coeff of Yanely Plt Count MPV Immature Gran % (Auto) Neut % (Auto) Lymph % (Auto) [place] % (Auto) Eos % (Auto) Baso % (Auto) Absolute Neuts (auto) Absolute Lymphs (auto) Nucleated RBC % Sodium Potassium Chloride Carbon Dioxide Anion Gap BUN Creatinine Estim Creat Clear Calc Est GFR (MDRD) Af Amer Est GFR (MDRD) Non-Af BUN/Creatinine Ratio Glucose Lactic Acid Calcium Total Bilirubin AST ALT Alkaline Phosphatase Troponin I High Sens Total Protein Albumin Globulin Albumin/Globulin Ratio Urine Color Yellow Urine Clarity Sl. Cloudy Urine pH 7.0 Ur Specific Gilbert 1.010 Urine Protein 500 H Urine Glucose (UA) 100 H Urine Ketones Negative Urine Occult Blood 25 H Urine Nitrite Negative Urine Bilirubin Negative Urine Urobilinogen Normal Ur Leukocyte Esterase 25 H Urine RBC 0-5 SEEN Urine WBC 5-10 SEEN Ur Squamous Epith Cells 0-5 SEEN Urine Bacteria RARE Urine Mucus 0 SEEN Radiography Diagnostic Testing: Clinical Impression(s) from Imaging Studies Chest X-Ray 07/14/22 08:20 IMPRESSION: All the support tubes are in good position. Bilateral airspace disease as described suggests pulmonary edema. Electronically Signed: Kelechi Pleitez MD at 8:37 EDT Reading Location ID and State: [facility] / [place] , Service support , Portable chest x-ray was obtained. There is 1 view. On my independent interpretation, there is pulmonary edema. The endotracheal tube is in good position. Orogastric tube passes below the diaphragm. Bony thorax is normal. Radiologist also interpreted the x-ray and agrees. EKG Initial EKG: Interpretation: Paced (134), LBBB and Non-Specific ST Changes Prior EKG tracings: available for review Prior: Unchanged (07/02/2022) Treatment and Re-Evaluation Narrative: CPR was continued. ACLS protocols were followed. Patient was intubated with a 7.5 ET tube to 25 cm at the lip. There is good color change on capnography. The breath sounds were equal bilaterally. There was pink frothy sputum coming up to the endotracheal tube. Patient was given epinephrine and calcium chloride. Patient did regain a pulse and blood pressure with this. Prior to any of the labs returning, patient went back into ventricular fibrillation. Patient was defibrillated at 200 J. CPR was initiated again. ACLS protocols were followed. Patient was given more epinephrine, calcium chloride, sodium bicarbonate, amiodarone, dextrose, and insulin. Patient briefly regained a pulse but then lost it again. Patient was noted to go back into ventricular fibrillation. Patient was defibrillated at 300 J. Patient went to [facility]. CPR was continued. was brought to the bedside. She wanted no further treatmen ts. Patient was pronounced at 0837. Case was discussed with patient's primary care physician who will sign the certificate. 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, Discussing w/Consultants, Arranging Admission or Transfer and Performing Direct Patient Care at Bedside Discharge Plan Triage Chief Complaint: CPR Other Complaint: Unresponsive ED Provider: Santino Rivas Dx/Rx/DC Orders Clinical Impression: Cardiopulmonary arrest, Obesity, Chronic kidney disease, stage IV (severe) Prescriptions: No Action aspirin 81 mg tablet,chewable 81 mg PO DAILY glimepiride 4 mg tablet 4 mg PO DAILY prednisone 5 mg tablet 5 mg PO DAILY tacrolimus 0.5 mg capsule 2 mg PO DAILY atorvastatin 40 MG tablet 40 mg PO QHS dulaglutide 1.5 MG/0.5 ML pen injector 1.5 mg SQ REYNA Rx Instructions: takes on Wednesday ferrous sulfate 325 MG tablet 325 mg PO DAILY tacrolimus 1 mg Capsule 1 mg PO QHS lorazepam [Ativan] 1 mg tablet 1 mg PO TID PRN (Reason: anxiety) Qty: 10 0RF Eliquis 5 mg Tablet 5 mg PO BID Qty: 0 0RF levofloxacin 250 mg tablet 250 mg PO DAILY Qty: 5 0RF Rx Instructions: start on 07/08/22 Primary Care Provider: Sy Sharma Chi Referrals: Sy Sharma Chi, MD [Primary Care Provider] - Disposition Disposition:
[2022-07-14 09:01] LABS: BNP,B-Type NATRIURETIC PEPTIDE 1842.4 pg/mL (0-100); Differential Comment SCANNED
--- NOTE | 2022-07-14 09:35 | NURSING ---
FAXED CHART TO [facility]
[2022-07-14 10:22] LABS: Reflex Troponin-HS? (from REC) Y
[2022-07-14 12:22] LABS: Reflex Lactate? Y
[2022-07-14 13:20] LABS: Pathologist Review Reviewed
== END 2022-07-14 10:31 ==
PROVIDERS: Emergency Provider Emergency Medicine; PCP Family Medicine Geriatric Medicine; Visit Provider Emergency Medicine
DX: I46.9 Cardiac arrest, cause unspecified (principal); N18.4 Chronic kidney disease, stage 4 (severe); E66.9 Obesity, unspecified; Z86.718 Personal history of other venous thrombosis and embolism; Z95.0 Presence of cardiac pacemaker; Z87.891 Personal history of nicotine dependence
CPT/HCPCS: 31500; 31720; 71045; 80053; 81001; 83605; 83880; 84484; 85025; 92950; 93005; 94002; 96374; 99252; 99283; J7030; A4216; G0463; J3010